=== PATIENT | female | born 1940 | race Caucasian/White ===

== ENCOUNTER 2016-09-30 15:44 | Observation (INO) ==
[2016-09-30] MEDS ORDERED: 0.9 % Sodium Chloride 1,000 ML IVC ONE (16:00)
--- NOTE | 2016-09-30 16:01 | Emergency Department Note ---
Disposition Clinical Impression: Hypoxia, HCAP (healthcare-associated pneumonia) Acute and chronic respiratory failure Qualifiers: Respiratory failure complication: hypoxia Qualified Code(s): J96.21 - Acute and chronic respiratory failure with hypoxia Disposition: Admitted As Inpatient Time of Disposition: 17:51 SOB HPI - General Chief Complaint: ED Shortness of Breath/Dyspnea Stated Complaint: OG, possible pneumonia Time Seen by Provider: 09/30/16 15:56 Source: patient, family Limitations: no limitations Nursing Notes Reviewed: Yes Vital Signs Reviewed: Yes - History of Present Illness 76-year-old female history of shortness of breath Johnnie Juares, chronic respiratory failure, requires oxygen as needed, and see apnea with CPAP at night, presents with shortness of breath cough and wheeze, has been worse for the last 2-3 days. Patient was recently discharged 2 weeks ago for acute on chronic respiratory or failure, was treated with antibiotic for pneumonia in the hospital. Pt Subjective Complaint: shortness of breath Onset (ago): day(s) (3) Severity: moderate Consistency/Duration: intermittent Improves with: oxygen Worsens with: lying flat, exertion, coughing Known history of: COPD, recurrent pneumonia Associated symptoms: Reports: fever, cough, wheezing, sputum production Treatment prior to arrival: oxygen (as needed) Cough present: Yes Cough Description: Voluntary, Hacking Cough Frequency: Intermittent Sputum production: Yes Sputum Amount: Scant Sputum Color: Yellow - Related Data Home oxygen amount: 2 liters Home Medications Medication Instructions Recorded Confirmed Aspirin 81 mg PO DAILY 02/07/16 09/12/16 Clopidogrel [Plavix] 75 mg PO DAILY 02/07/16 09/12/16 Metoprolol XL (24 HR) Succ [Toprol 100 mg PO DAILY 08/21/16 09/12/16 Xl] Previous Rx's Medication Instructions Recorded Albuterol Sulfate [Albuterol 0 puff IH Q4HR PRN #1 hfa.aer.ad 08/30/16 Inhaler] Ipratropium/Albuterol Neb [Duoneb] 3 ml IH Q4HR 30 Days 08/30/16 Budesonide/Formoterol 80/4.5 1 puff IH BIDR #1 inhaler 09/14/16 [Symbicort 80/4.5] Fluconazole [Diflucan] 150 mg PO PRN PRN #1 tab 09/14/16 Furosemide [Lasix] 20 mg PO DAILY PRN #0 09/14/16 Insulin Glargine,Hum.rec.anlog 25 unit SQ DAILY 30 Days 09/14/16 [Lantus Solostar] Insulin LISPRO [HumaLOG] 0 units SQ TIDAC 30 Days 09/14/16 Allergies Allergy/AdvReac Type Severity Reaction Status Date / Time acetaminophen Allergy Nausea Verified 08/27/16 10:19 [From Darvocet-N] codeine Allergy See Verified 08/27/16 10:19 Comments morphine Allergy Nausea Verified 08/27/16 10:19 propoxyphene Allergy Nausea Verified 08/27/16 10:19 [From Darvocet-N] Review of Systems: A 14 point ROS was obtained and was negative except as per below or as documented in the HPI. Constitutional: Denies: fever, chills, weakness, weight change Eyes: Denies: eye pain, eye discharge, vision change ENT: Denies: ear pain, throat pain, hearing loss, epistaxis, congestion, Cardiovascular: Denies: chest pain, palpitations, dyspnea on exertion, edema, syncope Respiratory: cough, dyspnea, wheezes Denies: , hemoptysis, stridor Gastrointestinal: Denies: abdominal pain, nausea, vomiting. diarrhea, constipation, hematemesis, hematochezia Genitourinary: Denies: urgency, dysuria, frequency, hematuria Musculoskeletal: Denies: back pain, neck pain, arthralgia, myalgia Integumentary: Denies: rash, abrasion, lesions Neurological: Denies: headache, weakness, numbness, paresthesias, confusion, abnormal gait Psychiatric: Denies: anxiety, depression, suicidal thoughts, homicidal thoughts , Endocrine: Denies: fatigue Hematological/Lymphatic: Denies: easy bleeding, easy bruising Allergic/Immunologic: Denies: facial swelling, urticaria All systems ED: reviewed and negative except as stated. Past Medical History - Past Medical History Attestation: Yes The following information was validated with the patient. Source: patient Medical history: Reports: coronary artery disease, hyperlipidemia, myocardial infarction Surgical history: Reports: appendectomy, cholecystectomy, coronary bypass (CABG) , hysterectomy, knee replacement, pacemaker/AICD, other Psychiatric history: Reports: anxiety, depression - Social History Smoking Status: Never smoker Smokeless Tobacco Status: No Alcohol use: Reports: none Drug use: Reports: none Physical Exam General: alert and oriented, short of breath and moderate respiratory distress Head: NCAT, no lesions Eyes: sclera anicteric, conjunctiva normal, PERRLA bilaterally, EOMI Bilaterally Ears: normal inspection, external ear wnl Nose: nasal septum nondeviated, sinuses nontender Throat: good dentition, mucous membranes moist Neck: no lymphadenopathy, trachea midline no deviation, no JVD Resp: Diffuse inspiratory and expiratory wheezes, diminished breath sounds the bases bilaterally. CV: RRR, normal S1 and S2, no m/g/r, Pulses +2 Rad, +2 DP/PT Abdomen: Soft, NTND, no hepatosplenomegaly, no hernias, Negative Rovsing's sign , Negative Orozco's sign Back: normal inspection, no tenderness to palpation, Negative CVA tenderness bilaterally Neuro: A&O3, CN II-XII grossly intact bilaterally, no motor or sensory deficits bilaterally, gait normal, GCS 15 [id number] Ext: normal inspection, symmetric Active and Passive ROM UE and LE bilaterally , no pedal edema bilaterally Psych: normal mood, normal affect Skin: No rashes, skin warm, dry, intact - General Limitations: no limitations General appearance: alert Course Course Narrative: 76-year-old female with probable pneumonia, multiple recent episodes of recurrent pneumonia and acute on chronic respiratory failure, we do nebs and Solu-Medrol, checking basic lab work with blood cultures and lactate, sputum culture, starting antibiotic spacer for pneumonia. - Reevaluation(s) Reevaluation #1: X-ray shows evidence of new left lower lobe infiltrate, we will treat with H Antibiotics make myosin Zosyn and Levaquin, ABG, patient just recently received her nebs so she is still tachypneic and wheezy. Admits hospitalist for HCAP And hypoxia Time: 17:50 Vital Signs Temperature 98.2 F 09/30/16 15:46 Pulse Rate 96 09/30/16 15:46 Respiratory Rate 24 09/30/16 15:46 Blood Pressure 114/76 09/30/16 15:46 O2 Sat by Pulse Oximetry 96 09/30/16 15:46 Temperature 98.2 F 09/30/16 15:46 Pulse Rate 91 09/30/16 17:51 Respiratory Rate 18 09/30/16 17:51 Blood Pressure 130/60 09/30/16 17:51 O2 Sat by Pulse Oximetry 99 09/30/16 17:51 Oxygen Delivery Oxygen Delivery Aerosol Mask Shortness of Breath/Dyspnea - [facility] Narrative Medical decision making narrative: 76yo female with left lower lobe pneumonia, treated for age Given recent hernias and hospitalizations, improved after DuoNeb treatment, ABG unremarkable , patient is not a BiPAP at the time of admission, admitted to hospitalist Dr Marino in stable condition. - Differential Diagnosis Likely: acute exacerbation of chronic obstructive airways disease, congestive heart failure, pneumonia, pulmonary embolism - Medical Records Medical records reviewed: Yes I reviewed the patient's medical records. - Lab Data Lab results reviewed: Yes I reviewed the patient's lab results. Result diagrams: 09/30/16 16:43 09/30/16 16:43 Lab Results 09/30/16 09/30/16 09/30/16 Range/Units 16:43 16:43 16:43 WBC 7.3 (4.3-11.1) K/mcL RBC 4.18 (3.82-4.97) M/mcL Hgb 12.3 (11.5-15.4) g/dL Hct 38.6 (35.3-44.9) % MCV 92.3 (83.0-100.0) fL MCH 29.4 (28.0-33.3) pg MCHC 31.9 (31.6-35.5) g/dL RDW 14.0 (11.5-14.5) % Plt Count 308 (140-400) K/mcL MPV 9.5 (9.4-12.4) fL Immature Gran % 1.2 (0-4) % Seg Neutrophils % 68.6 % Lymphocytes % 16.8 % Monocytes % 11.0 % Eosinophils % 1.9 % Basophils % 0.5 % Neutrophils # 5.0 (1.6-8.9) K/mcL Lymphocytes # 1.2 (0.6-4.6) K/mcL Monocytes # 0.8 (0.0-1.3) K/mcL Eosinophils # 0.1 (0.0-0.6) K/mcL Basophils # 0.0 (0.0-0.2) K/mcL Dohle Bodies Present A (Not Present) Platelet Estimate Normal (Normal) PT 12.2 H (9.4-12.1) Seconds INR 1.1 APTT 30.2 (26.0-36.0) Seconds Sodium 140 (136-145) mEq/L Potassium 4.2 (3.5-4.5) mEq/L Chloride 105 (98-109) mEq/L Carbon Dioxide 25 (19-29) mEq/L BUN 12 (7-20) mg/dL Creatinine 1.13 H (0.57-1.11) mg/dL Est GFR ( Amer) 57 L (> 60) Est GFR (Non-Af Amer) 47 L (> 60) BUN/Creatinine Ratio 11 (6-26) Glucose 147 H (70-99) mg/dL Calculated Osmolality 292 (280-300) Lactic Acid (0.5-2.2) mmol/L Calcium 9.8 (8.6-10.8) mg/dL Total Bilirubin 1.1 (0.2-1.2) mg/dL Direct Bilirubin 0.4 (0.0-0.5) mg/dL Indirect Bilirubin 0.7 (0.0-1.2) mg/dL AST 14 (5-34) Units/L ALT 20 (0-55) Units/L Alkaline Phosphatase 97 (38-126) Units/L Troponin I (0-0.03) ng/mL B-Natriuretic Peptide (0-100) pg/mL Serum Total Protein 6.8 (6.0-8.3) g/dL Albumin 3.2 L (3.5-5.0) g/dL Globulin 3.6 H (2.4-3.5) g/dL Albumin/Globulin Ratio 0.9 L (1.1-2.2) 09/30/16 09/30/16 09/30/16 Range/Units 16:43 16:43 16:43 WBC (4.3-11.1) K/mcL RBC (3.82-4.97) M/mcL Hgb (11.5-15.4) g/dL Hct (35.3-44.9) % MCV (83.0-100.0) fL MCH (28.0-33.3) pg MCHC (31.6-35.5) g/dL RDW (11.5-14.5) % Plt Count (140-400) K/mcL MPV (9.4-12.4) fL Immature Gran % (0-4) % Seg Neutrophils % % Lymphocytes % % Monocytes % % Eosinophils % % Basophils % % Neutrophils # (1.6-8.9) K/mcL Lymphocytes # (0.6-4.6) K/mcL Monocytes # (0.0-1.3) K/mcL Eosinophils # (0.0-0.6) K/mcL Basophils # (0.0-0.2) K/mcL Dohle Bodies (Not Present) Platelet Estimate (Normal) PT (9.4-12.1) Seconds INR APTT (26.0-36.0) Seconds Sodium (136-145) mEq/L Potassium (3.5-4.5) mEq/L Chloride (98-109) mEq/L Carbon Dioxide (19-29) mEq/L BUN (7-20) mg/dL Creatinine (0.57-1.11) mg/dL Est GFR ( Amer) (> 60) Est GFR (Non-Af Amer) (> 60) BUN/Creatinine Ratio (6-26) Glucose (70-99) mg/dL Calculated Osmolality (280-300) Lactic Acid 1.5 (0.5-2.2) mmol/L Calcium (8.6-10.8) mg/dL Total Bilirubin (0.2-1.2) mg/dL Direct Bilirubin (0.0-0.5) mg/dL Indirect Bilirubin (0.0-1.2) mg/dL AST (5-34) Units/L ALT (0-55) Units/L Alkaline Phosphatase (38-126) Units/L Troponin I 0.01 (0-0.03) ng/mL B-Natriuretic Peptide 125 H (0-100) pg/mL Serum Total Protein (6.0-8.3) g/dL Albumin (3.5-5.0) g/dL Globulin (2.4-3.5) g/dL Albumin/Globulin Ratio (1.1-2.2) - Radiology Data Radiology results reviewed: Yes I reviewed the patient's radiology results. Chest X-Ray 09/30/16 16:00 IMPRESSION: Interval increase and mild congestive changes. Asymmetric opacity at the left lung base may represent asymmetric pulmonary edema, atelectasis, or pneumonia. Recommend follow-up as clinically indicated. D/ / 09/30/2016 16:31:46 Melvin Joshua MD / Neris Carbajal Interpreting Provider: Melvin Joshua MD - EKG Data EKG attestation: Yes I reviewed and interpreted this EKG. EKG shows normal: Reports: sinus rhythm Rate: Reports: normal (Beats per minute NH 1 338 QRS 89 QTC 390) Rhythm: Reports: NSR [place]/QRS: Reports: normal When compared to previous EKG there are: no significant changes Interpretation: Reports: no acute changes, unchanged when compared to prior tracing (date) (09/12/2016) - Core Measures AMI Core Measures Followed: No Attestation Statement - Attestation Attestation: I examined this patient and my medical decision-making was reviewed with the [employer]/PA/Advanced Practice Nurse/Resident Physician. I agree with the documented findings, disposition and treatment plan as described except to the extent set forth below. Patient presents to the emergency department with a chief complaint of difficulty in breathing. Worsening over the past few days. Patient had several recent admissions. Coughing. Short of breath. Increasing oxygen demands a home. On exam she is uncomfortable but in no distress. Diffuse expiratory wheezing. Mildly tachypneic. Plan. Nebs and steroids. Chest x- ray shows an infiltrate. Broad spectrum antibiotics and admission.
[2016-09-30] MEDS ORDERED: Ipratropium/Albuterol Neb 3 ML IH ONE (16:16)
[2016-09-30] MEDS ORDERED: methylPREDNISolone 125 MG/2 ML VIAL IVP ONE (16:23)
[2016-09-30 16:53] LABS: Basophils % 0.5 %; Eosinophils # 0.1 K/mcL (0.0-0.6); Eosinophils % 1.9 %; Hematocrit 38.6 % (35.3-44.9); Hemoglobin 12.3 g/dL (11.5-15.4); Immature Granulocytes % 1.2 % (0-4); Lymphocytes # 1.2 K/mcL (0.6-4.6); Lymphocytes % 16.8 %; Mean Corpuscular HGB Conc 31.9 g/dL (31.6-35.5); Mean Corpuscular Hemoglobin 29.4 pg (28.0-33.3); Mean Corpuscular Volume 92.3 fL (83.0-100.0); Mean Platelet Volume 9.5 fL (9.4-12.4); Monocytes # 0.8 K/mcL (0.0-1.3); Platelet Count 308 K/mcL (140-400); Red Blood Count 4.18 M/mcL (3.82-4.97); Segmented Neutrophils % 68.6 %
[2016-09-30 17:01] LABS: INR 1.1; Prothrombin Time 12.2 Seconds (9.4-12.1)
[2016-09-30 17:04] LABS: Activated Partial Thrombo Time 30.2 Seconds (26.0-36.0)
[2016-09-30] MEDS ORDERED: Piperacillin/Tazobactam 3.375 GM in D5% in Water (Mini-Bag+) 100 ML IVPB ONE (17:08)
[2016-09-30] MEDS ORDERED: Levofloxacin 500 MG/100 ML 500 MG/100 ML BAG IVPB ONE (17:08)
[2016-09-30 17:09] LABS: Albumin 3.2 g/dL (3.5-5.0); Albumin/Globulin Ratio 0.9 (1.1-2.2); Bilirubin,Direct 0.4 mg/dL (0.0-0.5); Bilirubin,Indirect 0.7 mg/dL (0.0-1.2); Bilirubin,Total 1.1 mg/dL (0.2-1.2); Calcium 9.8 mg/dL (8.6-10.8); Globulin 3.6 g/dL (2.4-3.5); Potassium 4.2 mEq/L (3.5-4.5); Total Protein 6.8 g/dL (6.0-8.3)
[2016-09-30 17:15] LABS: Dohle Bodies Present (Not Present); Platelet Estimate Normal (Normal)
[2016-09-30] MEDS ORDERED: Vancomycin 1,500 MG in D5% in Water 250 ML IVPB ONE (18:00)
[2016-09-30] MEDS ORDERED: Furosemide 40 MG/4 ML VIAL IVP ONE (18:06)
[2016-09-30 18:27] LABS: ABG Base Excess -0.5 mEq/L (-2.0 to 3.0); ABG HCO3 24.2 mEQ/L (21-27); ABG Oxygen Saturation 97 % (95-98); ABG PCO2 39 mmHg (35-45); ABG PO2 95 mmHg (85-104); ABG TCO2 25.4 mEq/L (20-26); Blood Gas FiO2 44 %
[2016-09-30] MEDS ORDERED: Acetaminophen 325 MG TABLET PO PRN (18:54)
[2016-09-30] MEDS ORDERED: Naloxone 0.4 MG/ML INJ IVP PRN (18:54)
[2016-09-30] MEDS ORDERED: Ondansetron ODT 4 MG TAB.RAPDIS SL PRN (18:54)
[2016-09-30] MEDS ORDERED: Albuterol 2.5 MG/3 ML NEBULIZER IH PRN (19:03)
--- NOTE | 2016-09-30 19:58 | Internal Med History&Physical ---
Date of Encounter: 09/30/16 Time of Encounter: 19:50 Assessment and Plan (1) Acute and chronic respiratory failure Current visit: Yes Status: Acute History of restrictive lung disease. History of chronic bronchitis. Shortness of breath and cough, respiratory distress and tachypnea, satting 95% on 4 L nasal cannula with increased work of breathing. DuoNeb treatments 4 times a day sheduled Albuterol nebulizer every 2 hours when necessary BiPAP and oxygen per nasal cannula titrate to maintain oxygen saturation greater than 92% Qualifiers: Respiratory failure complication: hypoxia Qualified Code(s): J96.21 - Acute and chronic respiratory failure with hypoxia (2) HCAP (healthcare-associated pneumonia) Current visit: Yes Status: Acute Patient with productive cough, shortness of breath. Recent hospitalization with discharge 09/14. CXR showed mild congestive changes, asymmetric opacity at the left lung base. afebrile and no leukocytosis. Lungs with diffuse wheezing. Suspected healthcare associated pneumonia. Received Levaquin, Vanc and zosyn in ED. Will continue Levaquin 500mg IVPB daily (3) Acute on chronic diastolic heart failure Current visit: Yes Status: Acute Shortness of breath, BNP elevated to 125, echo on 07/23/16 showed moderate left ventricular diastolic dysfunction as well as pulmonary hypertension with an RVSP of 55 and a preserved ejection fraction of 65%. X-ray showed increase in mild congestive changes. Lasix 40 mg IV push twice a day. Recheck chest x-ray tomorrow BiPAP and oxygen per nasal cannula, titrate to maintain oxygen saturation above 92% Intake/output daily weights (4) Acute chronic obstructive pulmonary disease with respiratory distress Current visit: Yes Status: Acute History of chronic bronchitis, and restrictive lung disease. Productive cough and shortness of breath. 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 Florez is a 76 year old female with a history of restrictive lung disease, hypertension, coronary artery disease, type 2 diabetes presented to the emergency department today with complaints of productive cough and shortness of breath. She reports her cough and shortness of breath has have been worsening over the past 2-3 days. The cough is productive of green sputum. She reports she does have chest tightness with her cough and a sore throat. She wears oxygen at home and his CPAP overnight. She also reports some mild nausea, chills and poor appetite. She denies any fever, body aches, vomiting, diarrhea. Her evaluation in the ED was significant for a BNP elevated to 125, chest x-ray which showed mild congestive changes, asymmetric opacity at the left lung base. Troponin was negative at 0.01, lactic acid was normal at 1.5, ABG was normal. She was initiated on broad-spectrum antibiotics by the ED, with vancomycin, Zosyn, and Levaquin. She was given DuoNeb treatment and 125 mg of IV Solu-Medrol. On exam she appears tachypnic, and is using accessory muscles to breathe. She is satting 95% on 4 L nasal cannula. Her lungs have diffuse wheezes. Heart is mildly tachycardic with regular rhythm. Past Med Surg Social Fam HX - Past Medical History Medical history: CHF (diastolic), COPD (chronic bronghitis, restrictive lung disease.), coronary artery disease, diabetes, hyperlipidemia, myocardial infarction, renal disease, valvular heart disease Psychiatric history: anxiety, depression - Past Surgical History Surgical History: appendectomy, cholecystectomy, coronary bypass (CABG), heart valve replacement (mitral valve - porcine), hysterectomy, knee replacement, other, pacemaker - Social History Smoking Status: Never smoker Smokeless Tobacco Status: No Alcohol use: none Drug use: none - Family History Mother Living Status: Hx Family Cardiac Disorders: Yes Hx Family Respiratory Disorders: Yes (COPD) Hx Family Cancer: Yes (Colon.) Hx Family GI Disorders: No Hx Family Endocrine Disorder: No Hx Family Neuromuscular Disorders: No Hx Family Neurologic Disorders: No Hx Family HEENT Disorders: No Hx Family Autoimmune Disorders: No Father Living Status: Age at : 68 Cause of : [place] Internal Medicine - H&P: Meds Aspirin 81 mg PO DAILY 02/07/16 [History] Clopidogrel [Plavix] 75 mg PO DAILY 02/07/16 [History] Metoprolol XL (24 HR) Succ [Toprol Xl] 100 mg PO DAILY 08/21/16 [History] Albuterol Sulfate [Albuterol Inhaler] 0 puff IH Q4HR PRN #1 hfa.aer.ad 08/30/16 [Rx] Ipratropium/Albuterol Neb [Duoneb] 3 ml IH Q4HR 30 Days 08/30/16 [Rx] Budesonide/Formoterol 80/4.5 [Symbicort 80/4.5] 1 puff IH BIDR #1 inhaler 09/14 [Rx] Fluconazole [Diflucan] 150 mg PO PRN PRN #1 tab 09/14/16 [Rx] Furosemide [Lasix] 20 mg PO DAILY PRN #0 09/14/16 [Rx] Insulin Glargine,Hum.rec.anlog [Lantus Solostar] 25 unit SQ DAILY 30 Days [Rx] Insulin LISPRO [HumaLOG] 0 units SQ TIDAC 30 Days 09/14/16 [Rx] Allergies acetaminophen [From Darvocet-N] Allergy (Verified 08/27/16 10:19) Nausea codeine Allergy (Verified 08/27/16 10:19) See Comments "GOES INTO COMA" morphine Allergy (Verified 08/27/16 10:19) Nausea propoxyphene [From Darvocet-N] Allergy (Verified 08/27/16 10:19) Nausea All Systems PM: A 10-system review of systems was performed and is negative for pertinent findings except as documented above in the HPI. - Constitutional Constitutional: anorexia, chills, fatigue, no fever(s), no night sweats - EENT Eyes: no change in vision, no discharge, no pain, no photophobia Nose, mouth and throat: no dysphagia, no nasal discharge, no neck pain, no sore throat - Cardiovascular Cardiovascular ROS IM: no chest pain, no diaphoresis, no dyspnea, no lightheadedness, no palpitations, no syncope - Respiratory Respiratory: cough, dyspnea, dyspnea on exertion, wheezing, pain with cough - Gastrointestinal Gastrointestinal: no abdominal pain, no diarrhea, no hematemesis, no hematochezia, no melena, no nausea, no vomiting - Genitourinary Genitourinary: no change in urinary stream, no dysuria, no flank pain, no hematuria - Musculoskeletal Musculoskeletal ROS IM: no numbness, no tingling - Integumentary Integumentary IM: no rash, no unusual bruising - Neurological Neurological ROS: no confusion, no convulsions, no focal weakness, no numbness, no tingling, no tremor(s) - Hematologic/Lymphatic Hematologic/Lymphatic: no easy bruising - Constitutional Vitals: Temp Pulse Resp BP Pulse Ox 98.2 F 91 18 130/60 99 09/30/16 15:46 09/30/16 17:51 09/30/16 17:51 09/30/16 17:51 09/30/16 17:51 General appearance: Present: mild distress, A&O X 3 - Head Head exam: Present: atraumatic, normocephalic - Eye Eye exam: Present: PERRL, conjuntiva pink, sclera anicteric Pupils: Present: PERRL - Neck Neck exam general surgery: Present: supple, trachea midline. Absent: lymphadenopathy - Respiratory Respiratory exam: Present: prolonged expiratory phase, respiratory distress, wheezes, tachypnea - Cardiovascular Cardiovascular exam: Present: RRR, +S1, +S2. Absent: diastolic murmur, gallop, rubs, systolic murmur - GI/Abdominal GI/Abdominal exam: Present: normal bowel sounds, soft, no peritoneal signs. Absent: distended, tenderness - Extremities Exam Extremities exam: Present: warm, radial pulses palpable and symetrical. Absent : calf tenderness, cyanotic, pedal edema - Neurological Exam Neurological exam: Present: CN II-XII intact, oriented X3, no focal deficits. Absent: facial droop, speech deficit - Skin Skin exam: Present: dry, intact Internal Med - H&P Results - Labs CBC & Chem 7: 09/30/16 16:43 09/30/16 16:43 - ABG Interpretation ABG results: 09/30/16 18:20 ABG pH 7.40 ABG pCO2 39 ABG pO2 95 ABG HCO3 24.2 ABG Total CO2 25.4 ABG O2 Saturation 97 ABG Base Excess -0.5
[2016-09-30] MEDS ORDERED: D5% in Water 1,000 ML IV PRN (20:11)
[2016-09-30] MEDS ORDERED: *HR* Dextrose 50 % in Water (Syg) 50 ML SYRINGE IVP PRN (20:16)
[2016-09-30] MEDS ORDERED: Dextrose Gel 15 GM PO PRN ×2 (20:16)
--- NOTE | 2016-09-30 20:27 | Event Note ---
Date of Encounter: 09/30/16 Time of Encounter: 20:23 I examined this patient and my medical decision-making was reviewed with Marycruz Cannon. I agree with the documented findings, disposition and treatment plan as described except to the extent set forth below. 76-year-old female with a history of restrictive lung disease on home oxygen, chronic diastolic CHF presented to the emergency room due to a few days history of shortness of breath, cough. Patient denies any fevers. Reports wheezing. Denies orthopnea or paroxysmal nocturnal dyspnea. In the emergency room, patient received 1 L fluid bolus. Later, she received 40 mg intravenous Lasix. Exam admission reveals patient in moderate respiratory distress using accessory muscles of respiration. Bilateral diffuse wheezing present. First and second heart sounds present. Chest x-ray personally reviewed-coronary vascular congestion present. Questionable infiltrate right lower lobe when compared with a prior x-ray. Pacemaker on the right side. Telemetry reviewed-paced rhythm. Echocardiogram from June 2016 reveals ejection fraction of 65% with moderate diastolic dysfunction. Bio-prosthetic valve present. 1. Acute on chronic hypoxic respiratory failure-admit inpatient status. Expect the patient to stay in the hospital at least 2 midnights. Expected discharge disposition is to home. High-risk due to risk of lethal arrhythmias and worsening respiratory failure which may require intubation and mechanical ventilation. Patient is full code. BiPAP support. Monitor on telemetry and continuous pulse oximetry. Antibiotics. Steroids. 2. Acute on chronic diastolic CHF-intravenous Lasix. Strict input and output. Kendall catheter. Daily weights. Fluid restricted diet. 3. Coronary artery disease-aspirin, Plavix and beta pankaj. Statin. EKG without ischemic changes. Troponin stable. 4. Diabetes mellitus type 2 on insulin without complications-home dose of insulin and sliding scale insulin. 5. Chronic kidney disease stage III 6. Obesity 7. Obstructive sleep apnea on home CPAP at 11 cm. DOMINIC Paniagua
[2016-09-30] MEDS: Insulin LISPRO 300 UNITS/3 ML VIAL SQ SCH (20:53)
[2016-09-30] MEDS: Ipratropium/Albuterol Neb 3 ML IH SCH ×2 (21:00→22:00)
[2016-09-30] MEDS: Budesonide/Formoterol 160/4.5 MDI IH SCH (21:24)
[2016-09-30] MEDS: Furosemide 40 MG/4 ML VIAL IVP SCH ×2 (21:32→22:40)
[2016-09-30] MEDS ORDERED: *HR* LORazepam 2 MG/ML VIAL IVP ONE (21:41)
[2016-09-30] MEDS ORDERED: Water for inj. (sterile) 10 ML IV ONE (22:36)
[2016-10-01] MEDS: Ipratropium/Albuterol Neb 3 ML IH SCH ×4 (03:35→22:08)
[2016-10-01 05:34] LABS: Hematocrit 36.7 % (35.3-44.9); Mean Corpuscular HGB Conc 32.7 g/dL (31.6-35.5); Mean Corpuscular Hemoglobin 30.2 pg (28.0-33.3); Mean Corpuscular Volume 92.2 fL (83.0-100.0); Platelet Count 282 K/mcL (140-400); Red Blood Count 3.98 M/mcL (3.82-4.97); Red Cell Distribution Width 13.9 % (11.5-14.5)
[2016-10-01 05:35] LABS: Basophils % 0.3 %; Immature Granulocytes % 1.5 % (0-4); Lymphocytes # 0.5 K/mcL (0.6-4.6); Lymphocytes % 7.4 %; Mean Platelet Volume 10.3 fL (9.4-12.4); Monocytes # 0.2 K/mcL (0.0-1.3); Monocytes % 2.5 %; Segmented Neutrophils % 88.3 %
[2016-10-01 05:55] LABS: Calcium 8.9 mg/dL (8.6-10.8); Potassium 4.1 mEq/L (3.5-4.5)
[2016-10-01] MEDS ORDERED: MethylPREDNISolone 40 MG/ML VIAL IVP SCH (06:00)
[2016-10-01] MEDS: *HR* Heparin 5,000 UNIT/ML VIAL SQ SCH ×2 (06:06→17:56)
[2016-10-01] MEDS: Furosemide 40 MG/4 ML VIAL IVP SCH ×2 (08:05→20:10)
[2016-10-01] MEDS: Metoprolol XL (24 HR) Succ 50 MG TAB.ER.24H PO SCH (08:05)
[2016-10-01] MEDS: predniSONE 20 MG TABLET PO SCH (08:06)
[2016-10-01] MEDS: Aspirin 81 MG TAB.CHEW PO SCH (08:06)
[2016-10-01] MEDS: Insulin LISPRO 300 UNITS/3 ML VIAL SQ SCH ×4 (08:06→20:10)
[2016-10-01] MEDS: Budesonide/Formoterol 160/4.5 MDI IH SCH ×2 (10:46→22:08)
--- NOTE | 2016-10-01 14:43 | Electrocardiograph Report ---
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
--- NOTE | 2016-10-01 17:52 | Internal Med Progress Note ---
Date of Encounter: 10/01/16 Time of Encounter: 12:35 - Assessment and plan (1) Acute and chronic respiratory failure Current Visit: Yes Status: Acute Assessment and plan: Improved with BiPAP Qualifiers: Respiratory failure complication: hypoxia Qualified Code(s): J96.21 - Acute and chronic respiratory failure with hypoxia (2) Acute chronic obstructive pulmonary disease with respiratory distress Current Visit: Yes Status: Acute Assessment and plan: Improved Continue O2 BiPAP standby and hs for BAILEY (3) Acute on chronic diastolic heart failure Current Visit: Yes Status: Acute Assessment and plan: Continue diuresis, daily weight checks, input/output, fluid restriction diet (4) HCAP (healthcare-associated pneumonia) Current Visit: Yes Status: Acute Assessment and plan: Continue antibiotics (5) CKD (chronic kidney disease) stage 3, GFR 30-59 ml/min Current Visit: Yes Status: Chronic Assessment and plan: Stable Cr (6) Type 2 diabetes mellitus Current Visit: Yes Status: Chronic Qualifiers: Diabetes mellitus complication status: without complication Diabetes mellitus medical terminologist insulin use: with chcf use Qualified Code(s): E11.9 - Type 2 diabetes mellitus without complications; Z79.4 - manager long term care (current) use of insulin (7) CAD (coronary artery disease) Current Visit: Yes Status: Chronic Assessment and plan: Stable, resume home meds Qualifiers: Coronary Disease-Associated Artery/Lesion type: bypass graft [place] vs. transplanted heart: [place] heart Associated angina: without angina Qualified Code(s): I25.810 - Atherosclerosis of coronary artery bypass graft(s) without angina pectoris (8) HTN (hypertension) Current Visit: Yes Status: Chronic Qualifiers: Hypertension type: essential hypertension Qualified Code(s): I10 - Essential (primary) hypertension - Subjective Interval history: 76 Y/O F being managed for CAP, CHFE Has PMH of CHF, CKD, HTN, HLD, restrictive lung disease, chronic hypoxic respiratory failure She was placed on BiPAP and received Lasix on admission She is seen this morning, with some improvement - Constitutional Vitals: Temp Pulse Resp BP Pulse Ox 97.8 F 80 16 111/63 97 10/01/16 15:24 10/01/16 15:24 10/01/16 16:04 10/01/16 15:24 10/01/16 16:04 General appearance: Present: A&O X 3, no acute distress, obese - Head Head exam: Present: atraumatic, normocephalic - Eye Eye exam: Present: PERRL, conjuntiva pink, sclera anicteric Pupils: Present: PERRL - Neck Neck exam general surgery: Present: normal inspection - Respiratory Respiratory exam: Present: wheezes. Absent: rales, rhonchi - Cardiovascular Cardiovascular exam: Present: RRR, +S1, +S2 - GI/Abdominal GI/Abdominal exam: Present: normal bowel sounds, soft, no peritoneal signs. Absent: distended, tenderness - Extremities Exam Extremities exam: Present: warm, radial pulses palpable and symetrical. Absent : calf tenderness, cyanotic, pedal edema - Neurological Exam Neurological exam: Present: CN II-XII intact, oriented X3, no focal deficits. Absent: pronater drift, facial droop, speech deficit - Skin Skin exam: Present: dry Internal Medicine: Result - Labs CBC & Chem 7: 10/01/16 04:23 10/01/16 04:23 Labs: Short CBC 10/01/16 Range/Units 04:23 WBC 6.8 (4.3-11.1) K/mcL Hgb 12.0 (11.5-15.4) g/dL Hct 36.7 (35.3-44.9) % Plt Count 282 (140-400) K/mcL Neutrophils # 6.0 (1.6-8.9) K/mcL BMP 10/01/16 04:23 Sodium 139 Potassium 4.1 Chloride 105 Carbon Dioxide 20 BUN 16 Creatinine 1.48 H Glucose 384 H Calcium 8.9 - ABG Interpretation ABG results: ABG ABG pH 7.40 pH Units (7.32-7.45) 09/30/16 18:20 ABG pCO2 39 mmHg (35-45) 09/30/16 18:20 ABG pO2 95 mmHg (85-104) 09/30/16 18:20 ABG O2 Saturation 97 % (95-98) 09/30/16 18:20 PT/INR, D-dimer PT 12.2 Seconds (9.4-12.1) H 09/30/16 16:43 - Impressions Impressions Chest X-Ray 10/01/16 08:00 IMPRESSION: Left basilar opacity is unchanged and could represent atelectasis or pneumonia. D/ / Darius Majano MD / Darius Majano MD Interpreting Provider: Darius Majano MD Consult Discharge Plan - Plan Referrals: Edgar Nguyen Jr, MD [Primary Care Provider] -
[2016-10-01] MEDS: Levofloxacin 750 MG/150 ML 750 MG/150 ML BAG IVPB SCH (17:56)
[2016-10-01] MEDS ORDERED: *HR* LORazepam 2 MG/ML VIAL IVP ONE (22:53)
[2016-10-02] MEDS ORDERED: *HR* LORazepam 2 MG/ML VIAL IVP ONE ×2 (01:07→21:03)
[2016-10-02] MEDS ORDERED: *HR* LORazepam 2 MG/ML VIAL ONE (01:26)
[2016-10-02] MEDS: Ipratropium/Albuterol Neb 3 ML IH SCH ×4 (04:02→22:33)
[2016-10-02 05:05] LABS: Basophils # 0.1 K/mcL (0.0-0.2); Basophils % 0.5 %; Eosinophils % 0.1 %; Hematocrit 35.3 % (35.3-44.9); Hemoglobin 11.4 g/dL (11.5-15.4); Immature Granulocytes % 3.4 % (0-4); Lymphocytes # 1.4 K/mcL (0.6-4.6); Lymphocytes % 9.5 %; Mean Corpuscular HGB Conc 32.3 g/dL (31.6-35.5); Mean Corpuscular Hemoglobin 29.8 pg (28.0-33.3); Mean Corpuscular Volume 92.2 fL (83.0-100.0); Mean Platelet Volume 10.4 fL (9.4-12.4); Monocytes # 1.1 K/mcL (0.0-1.3); Monocytes % 7.3 %; Platelet Count 297 K/mcL (140-400); Red Blood Count 3.83 M/mcL (3.82-4.97); Segmented Neutrophils % 79.2 %
[2016-10-02 05:07] LABS: Neutrophils # 11.6 K/mcL (1.6-8.9)
[2016-10-02] MEDS: Cefepime HCl 1,000 MG in D5% in Water (Mini-Bag+) 100 ML IVPB SCH ×2 (05:09→17:01)
[2016-10-02] MEDS: *HR* Heparin 5,000 UNIT/ML VIAL SQ SCH ×2 (05:10→17:02)
[2016-10-02 05:13] LABS: Calcium 9.6 mg/dL (8.6-10.8)
[2016-10-02] MEDS: Metoprolol XL (24 HR) Succ 50 MG TAB.ER.24H PO SCH (08:43)
[2016-10-02] MEDS: Insulin LISPRO 300 UNITS/3 ML VIAL SQ SCH ×4 (08:44→20:47)
[2016-10-02] MEDS: predniSONE 20 MG TABLET PO SCH (08:44)
[2016-10-02] MEDS: Furosemide 40 MG/4 ML VIAL IVP SCH ×2 (08:44→21:42)
[2016-10-02] MEDS: Aspirin 81 MG TAB.CHEW PO SCH (08:44)
[2016-10-02] MEDS: Budesonide/Formoterol 160/4.5 MDI IH SCH ×2 (10:14→22:33)
--- NOTE | 2016-10-02 14:27 | Internal Med Progress Note ---
Date of Encounter: 10/02/16 Time of Encounter: 10:30 - Assessment and plan (1) HCAP (healthcare-associated pneumonia) Current Visit: Yes Status: Acute Assessment and plan: Patient stating her shortness of breath has improved since admission but she states she is not back to her baseline. Continue cefepime and levoflox. On examination, pt with fair to good aeration and no signs of increased respiratory effort. Will d/c massey and ambulate TID- encourage ambulation. Of note, patient continually endorsing her concern and fear that she will be discharged to orally. In review of her chart, this is her third admission in the last month and a half. Suspect she will be ready to discharge tomorrow pending clinical outcomes. ITS Impressions Chest X-Ray 09/30/16 16:00 IMPRESSION: Interval increase and mild congestive changes. Asymmetric opacity at the left lung base may represent asymmetric pulmonary edema, atelectasis, or pneumonia. Recommend follow-up as clinically indicated. D/ / 09/30/2016 16:31:46 Melvin Joshua MD / Neris Carbajal Interpreting Provider: Melvin Joshua MD Chest X-Ray 10/01/16 08:00 IMPRESSION: Left basilar opacity is unchanged and could represent atelectasis or pneumonia. D/ / Darius Majano MD / Darius Majano MD Interpreting Provider: Darius Majano MD (2) Acute chronic obstructive pulmonary disease with respiratory distress Current Visit: Yes Status: Acute Assessment and plan: Improved; continue supplemental oxygenation and pulmonary toilet. Fair to good aeration noted throughout. Continue BiPAP as needed, will transition back to CPAP upon discharge. (3) Acute and chronic respiratory failure Current Visit: Yes Status: Acute Assessment and plan: At home, patient used to be on 2 L per nasal cannula continuously however the past several weeks, she is needed 3 L. She also utilizes CPAP at home. Here, she is on 4-5 L per nasal cannula and is utilizing BiPAP. She states that the CPAP helps her more than the BiPAP. Continue pulmonary toilet. Plan is to try to wean her back to her baseline of 2-3 L per nasal cannula continuously. Qualifiers: Respiratory failure complication: hypoxia Qualified Code(s): J96.21 - Acute and chronic respiratory failure with hypoxia (4) Acute on chronic diastolic heart failure Current Visit: Yes Status: Acute Assessment and plan: Continue diuresis- we will de-escalate dosage given slowly worsening renal functioning. Continue daily weight checks, input/output, fluid restriction diet (5) CAD (coronary artery disease) Current Visit: Yes Status: Chronic Assessment and plan: Stable, resume home meds. Patient denies chest pain. Qualifiers: Coronary Disease-Associated Artery/Lesion type: bypass graft [place] vs. transplanted heart: [place] heart Associated angina: without angina Qualified Code(s): I25.810 - Atherosclerosis of coronary artery bypass graft(s) without angina pectoris (6) CKD (chronic kidney disease) stage 3, GFR 30-59 ml/min Current Visit: Yes Status: Chronic Assessment and plan: Stable Cr however slowly trending up since admission- we will de-escalate IV Lasix (7) HTN (hypertension) Current Visit: Yes Status: Chronic Assessment and plan: Controlled. We will continue to trend and adjust medications as indicated. Qualifiers: Hypertension type: essential hypertension Qualified Code(s): I10 - Essential (primary) hypertension (8) Type 2 diabetes mellitus Current Visit: Yes Status: Chronic Assessment and plan: Uncontrolled with recent A1c of 9.9%. Continue sliding scale while admitted. 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 On examination, patient sitting upright in bed watching television. Patient stating she is feeling better though continues to endorse shortness of breath above her norm. Patient stating she is extremely nervous stating that she does not want to be discharged to early stating that the last 2 times she has been admitted, she feels as if she has been sent home to early. She states she is eating well. - Constitutional Vitals: Temp Pulse Resp BP Pulse Ox 98.0 F 88 18 118/70 96 10/02/16 11:42 10/02/16 11:42 10/02/16 11:42 10/02/16 11:42 10/02/16 11:42 General appearance: Present: A&O X 3, pleasant, no acute distress, obese, answers questions appropriately - Head Head exam: Present: atraumatic, normocephalic - Eye Eye exam: Present: PERRL, conjuntiva pink, sclera anicteric Pupils: Present: PERRL - Neck Neck exam general surgery: Present: supple, trachea midline. Absent: lymphadenopathy - Respiratory Respiratory exam: Present: CTAB (fair to good aeration; no adventitious breath sounds detected). Absent: accessory muscle use, rales, respiratory distress, rhonchi, wheezes - Cardiovascular Cardiovascular exam: Present: RRR, +S1, +S2. Absent: diastolic murmur, gallop, rubs, systolic murmur - GI/Abdominal GI/Abdominal exam: Present: normal bowel sounds, soft, no peritoneal signs. Absent: distended, tenderness - Extremities Exam Extremities exam: Present: warm, radial pulses palpable and symetrical. Absent : calf tenderness, cyanotic, pedal edema - Neurological Exam Neurological exam: Present: alert, CN II-XII intact, normal gait, oriented X3, no focal deficits, strengths equal and symetr throughout. Absent: pronater drift, facial droop, speech deficit - Skin Skin exam: Present: dry, intact, pallor, warm Internal Medicine: Result - Labs CBC & Chem 7: 10/02/16 04:30 10/02/16 04:30 Labs: Short CBC 10/02/16 Range/Units 04:30 WBC 14.6 H D (4.3-11.1) K/mcL Hgb 11.4 L (11.5-15.4) g/dL Hct 35.3 (35.3-44.9) % Plt Count 297 (140-400) K/mcL Neutrophils # 11.6 H (1.6-8.9) K/mcL BMP 10/02/16 04:30 Sodium 143 Potassium 5.0 H Chloride 106 Carbon Dioxide 25 BUN 32 H D Creatinine 1.63 H Glucose 178 H Calcium 9.6 - ABG Interpretation ABG results: ABG ABG pH 7.40 pH Units (7.32-7.45) 09/30/16 18:20 ABG pCO2 39 mmHg (35-45) 09/30/16 18:20 ABG pO2 95 mmHg (85-104) 09/30/16 18:20 ABG O2 Saturation 97 % (95-98) 09/30/16 18:20 PT/INR, D-dimer PT 12.2 Seconds (9.4-12.1) H 09/30/16 16:43 Consult Discharge Plan - Plan Referrals: Alison Choudhury CNP [Advanced Practice Nurse] - 10/08/16 1:30 pm
[2016-10-02 20:47] LABS: Bilirubin,Urine Negative (Negative); Blood,Urine Trace (Negative); Clarity,Urine Clear (Clear); Color,Urine Yellow (Yellow); Glucose,Urine (UA) 500 mg/dL (Normal); Ketones,Urine Negative (Negative); Leukocyte Esterase,Urine Negative (Negative); Nitrite,Urine Negative (Negative); Protein,Urine Negative (Neg-Trace); Specific Gravity,Urine 1.019 (1.010-1.025); Urobilinogen,Urine Normal (Normal)
[2016-10-03] MEDS: Ipratropium/Albuterol Neb 3 ML IH SCH ×3 (03:50→16:03)
[2016-10-03 04:59] LABS: Basophils # 0.1 K/mcL (0.0-0.2); Basophils % 0.5 %; Eosinophils % 0.1 %; Hematocrit 35.8 % (35.3-44.9); Hemoglobin 11.5 g/dL (11.5-15.4); Immature Granulocytes % 4.8 % (0-4); Lymphocytes # 1.1 K/mcL (0.6-4.6); Lymphocytes % 9.9 %; Mean Corpuscular HGB Conc 32.1 g/dL (31.6-35.5); Mean Corpuscular Hemoglobin 30.3 pg (28.0-33.3); Mean Corpuscular Volume 94.5 fL (83.0-100.0); Mean Platelet Volume 9.8 fL (9.4-12.4); Monocytes # 0.6 K/mcL (0.0-1.3); Monocytes % 5.7 %; Neutrophils # 8.9 K/mcL (1.6-8.9); Platelet Count 316 K/mcL (140-400); Red Blood Count 3.79 M/mcL (3.82-4.97)
[2016-10-03 05:08] LABS: Calcium 9.4 mg/dL (8.6-10.8); Potassium 4.4 mEq/L (3.5-4.5)
[2016-10-03] MEDS: Cefepime HCl 1,000 MG in D5% in Water (Mini-Bag+) 100 ML IVPB SCH ×2 (06:18→17:24)
[2016-10-03] MEDS: *HR* Heparin 5,000 UNIT/ML VIAL SQ SCH ×2 (06:19→16:35)
[2016-10-03] MEDS: Insulin LISPRO 300 UNITS/3 ML VIAL SQ SCH ×4 (09:03→21:47)
[2016-10-03] MEDS: Metoprolol XL (24 HR) Succ 50 MG TAB.ER.24H PO SCH (09:04)
[2016-10-03] MEDS: Furosemide 40 MG/4 ML VIAL IVP SCH ×2 (09:04→21:47)
[2016-10-03] MEDS: predniSONE 20 MG TABLET PO SCH (09:04)
[2016-10-03] MEDS: Aspirin 81 MG TAB.CHEW PO SCH (09:04)
[2016-10-03] MEDS: Budesonide/Formoterol 160/4.5 MDI IH SCH (11:02)
--- NOTE | 2016-10-03 12:08 | Internal Med Progress Note ---
Date of Encounter: 10/03/16 Time of Encounter: 10:30 - Assessment and plan (1) HCAP (healthcare-associated pneumonia) Current Visit: Yes Status: Acute Assessment and plan: Patient stating her shortness of breath has improved since admission but she states she is not back to her baseline. Continue cefepime and levoflox. Yesterday, her lungs were clear with fair to good aeration. Today, I have noted coarse wheezing to her posterior lung field- will order chest CT at this time to assess status of pneumonia and possible fluid overload although she appears euvolemic on examination. Ambulate TID- encourage ambulation. Of note , patient continually endorsing her concern and fear that she will be discharged too early. In review of her chart, this is her third admission in the last month and a half. Will repeat chest CT given new adventitious breath sounds noted on examination today. Will also bring OT and PT onboard as she is endorsing generalized weakness. Continued vigilance and monitoring of her clinical status critical to prevent likely readmission in the near future should she go home today. Not going to be discharged today. ITS Impressions Chest X-Ray 09/30/16 16:00 IMPRESSION: Interval increase and mild congestive changes. Asymmetric opacity at the left lung base may represent asymmetric pulmonary edema, atelectasis, or pneumonia. Recommend follow-up as clinically indicated. D/ / 09/30/2016 16:31:46 Melvin Joshua MD / Neris Carbajal Interpreting Provider: Melvin Joshua MD Chest X-Ray 10/01/16 08:00 IMPRESSION: Left basilar opacity is unchanged and could represent atelectasis or pneumonia. D/ / Darius Majano MD / Darius Majano MD Interpreting Provider: Darius Majano MD (2) Acute chronic obstructive pulmonary disease with respiratory distress Current Visit: Yes Status: Acute Assessment and plan: Dyspnea has improved although she is not back to her baseline; continue supplemental oxygenation and pulmonary toilet. Fair to good aeration noted throughout with coarse breath sounds present. Continue BiPAP as needed, will transition back to CPAP upon discharge. (3) Acute and chronic respiratory failure Current Visit: Yes Status: Acute Assessment and plan: At home, patient used to be on 2 L per nasal cannula continuously however the past several weeks, she has needed 3 L. She also utilizes CPAP at home. Yesterday, she was on 4-5 L per nasal cannula, and today she is back on 2-3 L consistent with her baseline. She states that the CPAP helps her more than the BiPAP. Continue pulmonary toilet. Qualifiers: Respiratory failure complication: hypoxia Qualified Code(s): J96.21 - Acute and chronic respiratory failure with hypoxia (4) Acute on chronic diastolic heart failure Current Visit: Yes Status: Acute Assessment and plan: Continue diuresis- Lasix deescalated yesterday given slight decline in her renal functioning. She appears euvolemic on examination however coarse crackles noted on examination to her posterior lung jarquin that was not present yesterday. Chest CT pending. Continue daily weight checks, input/output, fluid restriction diet (5) CAD (coronary artery disease) Current Visit: Yes Status: Chronic Assessment and plan: Stable, resume home meds. Patient denies chest pain. Qualifiers: Coronary Disease-Associated Artery/Lesion type: bypass graft [place] vs. transplanted heart: [place] heart Associated angina: without angina Qualified Code(s): I25.810 - Atherosclerosis of coronary artery bypass graft(s) without angina pectoris (6) CKD (chronic kidney disease) stage 3, GFR 30-59 ml/min Current Visit: Yes Status: Chronic Assessment and plan: She has remained stable and consistent with her baseline throughout this admission however on days 2 and 3 of her current four-day admission, renal functioning trended down to the low end of her normal. Lasix was de-escalate it and her renal functioning has improved to her baseline today. (7) HTN (hypertension) Current Visit: Yes Status: Chronic Assessment and plan: Controlled. We will continue to trend and adjust medications as indicated. Qualifiers: Hypertension type: essential hypertension Qualified Code(s): I10 - Essential (primary) hypertension (8) Type 2 diabetes mellitus Current Visit: Yes Status: Chronic Assessment and plan: Uncontrolled with recent A1c of 9.9%. Continue sliding scale while admitted. 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 Qualifiers: Leukocytosis type: unspecified Qualified Code(s): D72.829 - Elevated white blood cell count, unspecified (12) Hyperkalemia Current Visit: Yes Status: Resolved (13) Depression Current Visit: Yes Status: Acute Assessment and plan: Patient's spoke to me outside of the patient's room stating he was concerned that she was depressed. He states that after she had 2 cardiac surgeries several years ago that she became depressed. I spoke directly to the patient regarding this concern. Patient does endorse both anxiety and depression at this time. She denies suicidal ideation. She states the last time this happened at the depression seemed to "go away on its own" and she states that she was not started on depression medication. She does not want depression medication at this time. - Subjective Interval history: Patient is seen and examined. On examination, patient sitting upright in bed watching television. Patient stating she is feeling better though continues to endorse shortness of breath above her norm. Patient stating she continues to be extremely nervous about going home stating that she feels really weak and is afraid that she is just going to have to come right back in. Her is at the bedside and pulled me out into the hallway to tell me that he is concerned she may be "severely depressed again like she was 8 or 9 years ago after her big surgery. It took me 2 and a half months to convince her doctors that she needed depression medication." - Constitutional Vitals: Temp Pulse Resp BP Pulse Ox 97.8 F 78 18 131/82 94 L 10/03/16 10:46 10/03/16 10:46 10/03/16 10:46 10/03/16 10:46 10/03/16 10:46 General appearance: Present: mild distress, A&O X 3, pleasant, obese, answers questions appropriately - Head Head exam: Present: atraumatic, normocephalic - Eye Eye exam: Present: PERRL, conjuntiva pink, sclera anicteric Pupils: Present: PERRL - Neck Neck exam general surgery: Present: supple, trachea midline. Absent: lymphadenopathy - Respiratory Respiratory exam: Present: accessory muscle use, decreased breath sounds, respiratory distress (mild), rhonchi, wheezes. Absent: rales - Cardiovascular Cardiovascular exam: Present: RRR, +S1, +S2. Absent: diastolic murmur, gallop, rubs, systolic murmur - GI/Abdominal GI/Abdominal exam: Present: normal bowel sounds, soft, no peritoneal signs. Absent: distended, tenderness - Extremities Exam Extremities exam: Present: warm, radial pulses palpable and symetrical. Absent : calf tenderness, cyanotic, pedal edema - Neurological Exam Neurological exam: Present: alert, CN II-XII intact, oriented X3, no focal deficits, strengths equal and symetr throughout. Absent: pronater drift, facial droop, speech deficit - Psychiatric Psychiatric exam: Present: anxious, depressed. Absent: suicidal ideation - Skin Skin exam: Present: dry, intact, pallor, warm Internal Medicine: Result - Labs CBC & Chem 7: 10/03/16 03:56 10/03/16 03:56 Labs: Short CBC 10/03/16 Range/Units 03:56 WBC 11.3 H (4.3-11.1) K/mcL Hgb 11.5 (11.5-15.4) g/dL Hct 35.8 (35.3-44.9) % Plt Count 316 (140-400) K/mcL Neutrophils # 8.9 (1.6-8.9) K/mcL BMP 10/03/16 03:56 Sodium 139 Potassium 4.4 Chloride 104 Carbon Dioxide 26 BUN 32 H Creatinine 1.29 H Glucose 173 H Calcium 9.4 Urine 10/02/16 Range/Units 17:45 Urine Color Yellow (Yellow) Urine Clarity Clear (Clear) Urine pH 6.0 (5.0-8.0) pH Units Ur Specific [place] 1.019 (1.010-1.025) Urine Protein Negative (Neg-Trace) mg/dL Urine Glucose (UA) 500 H (Normal) mg/dL - ABG Interpretation ABG results: ABG ABG pH 7.40 pH Units (7.32-7.45) 09/30/16 18:20 ABG pCO2 39 mmHg (35-45) 09/30/16 18:20 ABG pO2 95 mmHg (85-104) 09/30/16 18:20 ABG O2 Saturation 97 % (95-98) 09/30/16 18:20 PT/INR, D-dimer PT 12.2 Seconds (9.4-12.1) H 09/30/16 16:43 Consult Discharge Plan - Plan Referrals: Alison Choudhury CNP [Advanced Practice Nurse] - 10/08/16 1:30 pm
[2016-10-03] MEDS ORDERED: Benzonatate 100 MG CAPSULE PO PRN (12:50)
[2016-10-03] MEDS: Levofloxacin 750 MG/150 ML 750 MG/150 ML BAG IVPB SCH (17:25)
[2016-10-03] MEDS ORDERED: *HR* LORazepam 2 MG/ML VIAL IVP ONE (21:37)
[2016-10-03] MEDS ORDERED: Water for inj. (sterile) 10 ML IV ONE (21:45)
[2016-10-03] MEDS: Dextromethorphan Polistrx(12h) 30 MG/5 ML UDC PO PRN (21:48)
[2016-10-04] MEDS: Budesonide/Formoterol 160/4.5 MDI IH SCH ×3 (00:20→22:46)
[2016-10-04] MEDS: Ipratropium/Albuterol Neb 3 ML IH SCH ×5 (00:20→22:46)
[2016-10-04 05:07] LABS: Hematocrit 40.6 % (35.3-44.9); Hemoglobin 12.3 g/dL (11.5-15.4); Mean Corpuscular HGB Conc 30.3 g/dL (31.6-35.5); Mean Corpuscular Hemoglobin 29.8 pg (28.0-33.3); Mean Corpuscular Volume 98.3 fL (83.0-100.0); Mean Platelet Volume 10.6 fL (9.4-12.4); Nucleated Red Blood Cells 0.2 /100 WBC (0); Platelet Count 248 K/mcL (140-400); Red Blood Count 4.13 M/mcL (3.82-4.97); Red Cell Distribution Width 13.8 % (11.5-14.5)
[2016-10-04 05:19] LABS: Calcium 9.6 mg/dL (8.6-10.8)
[2016-10-04 05:20] LABS: Potassium 5.2 mEq/L (3.5-4.5)
[2016-10-04 05:43] LABS: Lymphocytes # 2.3 K/mcL (0.6-4.6); Monocytes # 0.2 K/mcL (0.0-1.3); Platelet Estimate Normal (Normal); Reactive Lymphocytes Present (Not Present)
[2016-10-04] MEDS: Cefepime HCl 1,000 MG in D5% in Water (Mini-Bag+) 100 ML IVPB SCH ×2 (05:49→16:40)
[2016-10-04] MEDS: *HR* Heparin 5,000 UNIT/ML VIAL SQ SCH ×2 (05:49→16:40)
[2016-10-04] MEDS: Metoprolol XL (24 HR) Succ 50 MG TAB.ER.24H PO SCH (10:00)
[2016-10-04] MEDS: predniSONE 20 MG TABLET PO SCH (10:00)
[2016-10-04] MEDS: Aspirin 81 MG TAB.CHEW PO SCH (10:00)
[2016-10-04] MEDS: Furosemide 40 MG/4 ML VIAL IVP SCH (10:00)
[2016-10-04] MEDS: Insulin LISPRO 300 UNITS/3 ML VIAL SQ SCH ×4 (10:01→21:24)
--- NOTE | 2016-10-04 14:51 | Internal Med Progress Note ---
Date of Encounter: 10/04/16 Time of Encounter: 10:30 - Assessment and plan (1) HCAP (healthcare-associated pneumonia) Current Visit: Yes Status: Acute Assessment and plan: On examination, patient is sitting upright in her chair. She is much more alert and interactive and states that she feels 100% better today. Aeration has improved and she remains on her home dose of oxygen which is 2 L per nasal cannula continuously. Repeat chest CT revealing possible worsening of suspected empyema. CT revealing consolidation and volume loss to the right middle and lower lobes increased from prior reading at the end of July. Pulmonology has been brought on board. Concern for possible need for thoracentesis and/or decortication at pulmonology's discretion. I am concerned that this worsening suspected empyema could be contributing to her recurrent readmissions with recurrent bouts of pneumonia. Disposition to be determined per pulmonology recommendation. ITS Impressions Chest CT 10/03/16 12:00 IMPRESSION: Mild patchy airspace disease in the right lung, including peripheral consolidation and volume loss in the right middle and lower lobes, increased from 08/27/2016. Scattered tree-in-bud opacities consistent with infectious/inflammatory disease to include aspiration. Stable small loculated right posterior pleural effusion with pleural thickening. Additional bibasilar parenchymal bands and areas of consolidation with volume loss, stable, consistent with focal scarring. Mildly enlarged subcarinal and hilar lymph nodes, possibly reactive. D/ / Abrahan Arriaga MD / Abrahan Arriaga MD Interpreting Provider: Abrahan Arriaga MD 10/03/16 Patient stating her shortness of breath has improved since admission but she states she is not back to her baseline. Continue cefepime and levoflox. Yesterday, her lungs were clear with fair to good aeration. Today, I have noted coarse wheezing to her posterior lung field- will order chest CT at this time to assess status of pneumonia and possible fluid overload although she appears euvolemic on examination. Ambulate TID- encourage ambulation. Of note , patient continually endorsing her concern and fear that she will be discharged too early. In review of her chart, this is her third admission in the last month and a half. Will repeat chest CT given new adventitious breath sounds noted on examination today. Will also bring OT and PT onboard as she is endorsing generalized weakness. Continued vigilance and monitoring of her clinical status critical to prevent likely readmission in the near future should she go home today. Not going to be discharged today. ITS Impressions Chest X-Ray 09/30/16 16:00 IMPRESSION: Interval increase and mild congestive changes. Asymmetric opacity at the left lung base may represent asymmetric pulmonary edema, atelectasis, or pneumonia. Recommend follow-up as clinically indicated. D/ / 09/30/2016 16:31:46 Melvin Joshua MD / Neris Carbajal Interpreting Provider: Melvin Joshua MD Chest X-Ray 10/01/16 08:00 IMPRESSION: Left basilar opacity is unchanged and could represent atelectasis or pneumonia. D/ / Darius Majano MD / Darius Majano MD Interpreting Provider: Darius Majano MD (2) Empyema of lung Current Visit: Yes Status: Suspected Assessment and plan: Repeat chest CT compared with prior report from 2 months ago, concern for empyema which is likely contributing to the patient's recurrent pneumonias and recurrent admissions as this is her third admission in the last 2 months. Pulmonology on board for possible thoracentesis and/or decortication at their discretion. (3) Acute chronic obstructive pulmonary disease with respiratory distress Current Visit: Yes Status: Acute Assessment and plan: Patient states she feels as if she is back to her baseline. She will need to see pulmonology prior to disposition. Continue supplemental oxygenation and pulmonary toilet. Aeration improved today. Continue BiPAP as needed, will transition back to CPAP upon discharge. (4) Acute and chronic respiratory failure Current Visit: Yes Status: Acute Assessment and plan: At home, patient used to be on 2 L per nasal cannula continuously however the past several weeks, she has needed 3 L. [place], she has weaned back to 2L. She also utilizes CPAP at home. She states that the CPAP helps her more than the BiPAP. Continue pulmonary toilet. Qualifiers: Respiratory failure complication: hypoxia Qualified Code(s): J96.21 - Acute and chronic respiratory failure with hypoxia (5) Acute on chronic diastolic heart failure Current Visit: Yes Status: Acute Assessment and plan: Euvolemic on examination, renal functioning stable. Patient now denies shortness of breath above her norm. We will de-escalate Lasix and transitioned back to by mouth. She is on 40 mg of Lasix daily at home however her states that she is noncompliant most of the time stating that she does not want to void frequently. She has been educated on sodium and fluid restricted diet as well as importance of taking her medications as prescribed. 10/03/16 Continue diuresis- Lasix deescalated yesterday given slight decline in her renal functioning. She appears euvolemic on examination however coarse crackles noted on examination to her posterior lung jarquin that was not present yesterday. Chest CT pending. Continue daily weight checks, input/output, fluid restriction diet (6) CAD (coronary artery disease) Current Visit: Yes Status: Chronic Assessment and plan: Stable, resume home meds. Patient denies chest pain. Qualifiers: Coronary Disease-Associated Artery/Lesion type: bypass graft [place] vs. transplanted heart: jamul heart Associated angina: without angina Qualified Code(s): I25.810 - Atherosclerosis of coronary artery bypass graft(s) without angina pectoris (7) CKD (chronic kidney disease) stage 3, GFR 30-59 ml/min Current Visit: Yes Status: Chronic Assessment and plan: Stable. Lasix was deescalated. (8) HTN (hypertension) Current Visit: Yes Status: Chronic Assessment and plan: Controlled. We will continue to trend and adjust medications as indicated. Qualifiers: Hypertension type: essential hypertension Qualified Code(s): I10 - Essential (primary) hypertension (9) Type 2 diabetes mellitus Current Visit: Yes Status: Chronic Assessment and plan: Uncontrolled with recent A1c of 9.9%. Continue sliding scale while admitted. Qualifiers: Diabetes mellitus complication status: with kidney complications Diabetes mellitus complication detail: with chronic kidney disease Diabetes mellitus exterminator termite insulin use: with retirement use Chronic kidney disease stage: stage 3 (moderate) Qualified Code(s): E11.22 - Type 2 diabetes mellitus with diabetic chronic kidney disease; N18.3 - Chronic kidney disease, stage 3 ( moderate); Z79.4 - supervisor intermediates (current) use of insulin (10) DVT prophylaxis Current Visit: No Status: Acute Assessment and plan: Subcutaneous heparin (11) BAILEY on CPAP Current Visit: No Status: Chronic (12) Leukocytosis Current Visit: Yes Status: Resolved Qualifiers: Leukocytosis type: unspecified Qualified Code(s): D72.829 - Elevated white blood cell count, unspecified (13) Hyperkalemia Current Visit: Yes Status: Acute Assessment and plan: Asymptomatic, will trend (14) Depression Current Visit: Yes Status: Acute Assessment and plan: Mood and affect elevated today. She is much more alert, interactive, and pleasant 10/03/16 Patient's spoke to me outside of the patient's room stating he was concerned that she was depressed. He states that after she had 2 cardiac surgeries several years ago that she became depressed. I spoke directly to the patient regarding this concern. Patient does endorse both anxiety and depression at this time. She denies suicidal ideation. She states the last time this happened at the depression seemed to "go away on its own" and she states that she was not started on depression medication. She does not want depression medication at this time. - Subjective Interval history: Patient is seen and examined. On examination, patient is sitting upright in her chair. Patient stating she feels "100% better." She states that she has been able to walk around the unit. She states her breathing is much improved and states that she is tolerating a regular diet. - Constitutional Vitals: Temp Pulse Resp BP Pulse Ox 97.4 F L 81 17 104/62 95 10/04/16 10:40 10/04/16 10:40 10/04/16 10:40 10/04/16 10:40 10/04/16 10:40 General appearance: Present: A&O X 3, pleasant, no acute distress, obese, answers questions appropriately - Head Head exam: Present: atraumatic, normocephalic - Eye Eye exam: Present: PERRL, conjuntiva pink, sclera anicteric Pupils: Present: PERRL - Neck Neck exam general surgery: Present: supple, trachea midline. Absent: lymphadenopathy - Respiratory Respiratory exam: Present: accessory muscle use, decreased breath sounds, prolonged expiratory phase, rhonchi, wheezes. Absent: rales, respiratory distress - Cardiovascular Cardiovascular exam: Present: RRR, +S1, +S2. Absent: diastolic murmur, gallop, rubs, systolic murmur - GI/Abdominal GI/Abdominal exam: Present: distended, normal bowel sounds, soft, no peritoneal signs. Absent: tenderness - Extremities Exam Extremities exam: Present: warm, radial pulses palpable and symetrical. Absent : calf tenderness, cyanotic, pedal edema - Neurological Exam Neurological exam: Present: alert, CN II-XII intact, normal gait, oriented X3, no focal deficits, strengths equal and symetr throughout. Absent: pronater drift, facial droop, speech deficit - Skin Skin exam: Present: dry, intact, normal color, warm Internal Medicine: Result - Labs CBC & Chem 7: 10/04/16 04:43 10/04/16 04:43 Labs: Short CBC 10/04/16 Range/Units 04:43 WBC 10.3 (4.3-11.1) K/mcL Hgb 12.3 (11.5-15.4) g/dL Hct 40.6 (35.3-44.9) % Plt Count 248 (140-400) K/mcL Neutrophils # 7.0 (1.6-8.9) K/mcL BMP 10/04/16 04:43 Sodium 140 Potassium 5.2 H Chloride 106 Carbon Dioxide 24 BUN 39 H Creatinine 1.41 H Glucose 194 H Calcium 9.6 - ABG Interpretation ABG results: ABG ABG pH 7.40 pH Units (7.32-7.45) 09/30/16 18:20 ABG pCO2 39 mmHg (35-45) 09/30/16 18:20 ABG pO2 95 mmHg (85-104) 09/30/16 18:20 ABG O2 Saturation 97 % (95-98) 09/30/16 18:20 PT/INR, D-dimer PT 12.2 Seconds (9.4-12.1) H 09/30/16 16:43 Consult Discharge Plan - Plan Referrals: Alison Choudhury RETAIL COORDINATOR [Advanced Practice Nurse] - 10/08/16 1:30 pm
--- NOTE | 2016-10-04 15:42 | Cardiothoracic Consult Note ---
Date of Encounter: 10/04/16 Time of Encounter: 15:39 Assessment and Plan (1) Acute and chronic respiratory failure Current Visit: Yes Status: Acute The assessment and plan as outlined above was discussed with the patient and/or family members who expressed understanding and agreement. All questions were answered. The patient's CT scan of her chest was reviewed with invasive radiology. This reveals a small right pleural effusion that has been stable since 2004. There is no evidence of infection. No air or other signs of active infection. This is too small for placement of a chest tube by radiology. Her white blood cell count is normal at 10,000. She states that she is been generally afebrile. Her recurrent chest infections may be related to sleep apnea, diastolic dysfunction with congestive heart failure or aspiration. There is no indication for surgery. Qualifiers: Respiratory failure complication: hypoxia Qualified Code(s): J96.21 - Acute and chronic respiratory failure with hypoxia - History of Present Illness History of present illness: Ms. Florez is a 76 year old female History of present illness. Patient is a 76-year-old female who has presented with recurrent bronchitis and pneumonia. She has had 3 episodes in the last 6 months. Symptoms consist of cough, shortness of breath and fatigue. She states that she had no fever at home that she knows of. Past medical history. In 2007 she sustained a myocardial infarction. She had triple bypass with mitral valve repair in [place]. Shortly thereafter she was emergently transferred to [place] for mitral valve replacement. She does have diabetes on insulin. She has had multiple surgeries including ventral hernia repair with mesh, total abdominal hysterectomy, cholecystectomy, appendectomy and colon resection. She is allergic to codeine and narcotics. Family history is positive for coronary artery disease. Social history. She lives outside [place] with her . Does not smoke. Rarely drinks alcohol. Review of systems is otherwise negative. Past Med Surg Social Fam HX - Past Medical History Medical history: CHF (diastolic), COPD (chronic bronghitis, restrictive lung disease.), coronary artery disease, diabetes, hyperlipidemia, myocardial infarction, renal disease, valvular heart disease Psychiatric history: anxiety, depression - Past Surgical History Surgical History: appendectomy, cholecystectomy, coronary bypass (CABG), heart valve replacement (mitral valve - porcine), hysterectomy, knee replacement, other, pacemaker - Social History Smoking Status: Never smoker Smokeless Tobacco Status: No Alcohol use: none Drug use: none - Family History Father Living Status: Age at : 68 Cause of : [place] Mother Living Status: Hx Family Cardiac Disorders: Yes Hx Family Respiratory Disorders: Yes (COPD) Hx Family Cancer: Yes (Colon.) Hx Family GI Disorders: No Hx Family Endocrine Disorder: No Hx Family Neuromuscular Disorders: No Hx Family Neurologic Disorders: No Hx Family HEENT Disorders: No Hx Family Autoimmune Disorders: No Medications and Allergies Aspirin 81 mg PO DAILY 02/07/16 [History] Clopidogrel [Plavix] 75 mg PO DAILY 02/07/16 [History] Metoprolol XL (24 HR) Succ [Toprol Xl] 100 mg PO DAILY 08/21/16 [History] Insulin Glargine,Hum.rec.anlog [Lantus Solostar] 25 unit SQ DAILY 30 Days [Rx] Insulin LISPRO [HumaLOG] 0 units SQ TIDAC 30 Days 09/14/16 [Rx] Budesonide/Formoterol 80/4.5 [Symbicort 80/4.5] 1 puff IH BIDR PRN 09/30/16 [ History] Ipratropium/Albuterol Neb [Duoneb] 3 ml IH Q4HR PRN 09/30/16 [History] Albuterol Sulfate [Albuterol Inhaler] 2 puff IH Q4HR PRN 10/01/16 [History] Furosemide [Lasix] 40 mg PO DAILY 10/01/16 [History] Allergies acetaminophen [From Darvocet-N] Allergy (Verified 10/01/16 13:46) Nausea codeine Allergy (Verified 10/01/16 13:46) See Comments "GOES INTO COMA" morphine Allergy (Verified 10/01/16 13:46) Nausea propoxyphene [From Darvocet-N] Allergy (Verified 10/01/16 13:46) Nausea All Systems Review: A 10-system review of systems was performed and is negative for pertinent findings except as documented above in the HPI. Physical Examination Vital Signs, Last 4 Hours Temp Pulse Resp BP Pulse Ox 10/04/16 15:32 98.0 F 73 15 113/74 95 Pupils are equal, round and reactive to light and accommodation. No oral lesions. Neck is supple. Trachea in the midline. No thyromegaly or carotid bruits. Lungs are clear to percussion and auscultation. Heart is in a regular rate and rhythm. She is status post pacemaker placement. Her chest incision is well healed and her sternum is stable. Abdomen is noted for multiple surgeries. No tenderness, rebound or guarding. No hepatosplenomegaly or masses. Extremities without edema. 1+ pulses. Cranial nerves, motor and sensory intact. She is awake, alert and oriented 3. Results 10/04/16 04:43 10/04/16 04:43 Lab Results, Last 24 hours 10/04/16 10/04/16 04:43 04:43 WBC 10.3 Hgb 12.3 Hct 40.6 Plt Count 248 Sodium 140 Potassium 5.2 H Chloride 106 Carbon Dioxide 24 BUN 39 H Creatinine 1.41 H Glucose 194 H Calcium 9.6 Consult Discharge Plan - Plan Referrals: Alison Choudhury PRECINCT I POLICE SERGEANT [Advanced Practice Nurse] - 10/08/16 1:30 pm
--- NOTE | 2016-10-04 16:33 | Pulmonology Consult Note ---
<Hank Garcia - Last Filed: 10/04/16 16:30> Date of Encounter: 10/04/16 Time of Encounter: 16:30 Assessment and Plan (1) Pleural effusion Current Visit: Yes Status: Acute Loculated on CT scan. Because of this time is unclear, differential includes infectious, inflammatory, malignant, or related to an underlying symptoms systemic disorder such as heart failure renal disease. Cardiothoracic surgery saw the patient and do not feel she is a candidate for surgical intervention at this time. Given the size and is not amenable to drainage. Recommend course of antibiotics, perhaps prolonged given the patient's history of recurrence. Patient will likely benefit from repeat CT scan in future to monitor resolution. History of Present Illness Consult date: 10/04/16 Requesting physician: Indy Pardo Reason for consult: pleural effusion Chief complaint: Shortness of breath History of present illness: Patient is a 76-year-old female with history of coronary artery disease, heart failure who presents with cough, shortness of breath, fatigue. She states her symptoms first began approximately 6 weeks ago and she had been admitted to the hospital 3 times since then for pneumonia. She receives antibiotics and improved for a short time and then her symptoms recur. She denies productive cough, fever, chills, chest pain. Past Med Surg Social Fam HX - Past Medical History Medical history: CHF (diastolic), COPD (chronic bronghitis, restrictive lung disease.), coronary artery disease, diabetes, hyperlipidemia, myocardial infarction, renal disease, valvular heart disease Psychiatric history: anxiety, depression - Past Surgical History Surgical History: appendectomy, cholecystectomy, coronary bypass (CABG), heart valve replacement (mitral valve - porcine), hysterectomy, knee replacement, other, pacemaker - Social History Smoking Status: Never smoker Smokeless Tobacco Status: No Alcohol use: none Drug use: none - Family History Father Living Status: Age at : 68 Cause of : ME Mother Living Status: Hx Family Cardiac Disorders: Yes Hx Family Respiratory Disorders: Yes (COPD) Hx Family Cancer: Yes (Colon.) Hx Family GI Disorders: No Hx Family Endocrine Disorder: No Hx Family Neuromuscular Disorders: No Hx Family Neurologic Disorders: No Hx Family HEENT Disorders: No Hx Family Autoimmune Disorders: No Medications and Allergies Aspirin 81 mg PO DAILY 02/07/16 [History] Clopidogrel [Plavix] 75 mg PO DAILY 02/07/16 [History] Metoprolol XL (24 HR) Succ [Toprol Xl] 100 mg PO DAILY 08/21/16 [History] Insulin Glargine,Hum.rec.anlog [Lantus Solostar] 25 unit SQ DAILY 30 Days [Rx] Insulin LISPRO [HumaLOG] 0 units SQ TIDAC 30 Days 09/14/16 [Rx] Budesonide/Formoterol 80/4.5 [Symbicort 80/4.5] 1 puff IH BIDR PRN 09/30/16 [ History] Ipratropium/Albuterol Neb [Duoneb] 3 ml IH Q4HR PRN 09/30/16 [History] Albuterol Sulfate [Albuterol Inhaler] 2 puff IH Q4HR PRN 10/01/16 [History] Furosemide [Lasix] 40 mg PO DAILY 10/01/16 [History] Allergies acetaminophen [From Darvocet-N] Allergy (Verified 10/01/16 13:46) Nausea codeine Allergy (Verified 10/01/16 13:46) See Comments "GOES INTO COMA" morphine Allergy (Verified 10/01/16 13:46) Nausea propoxyphene [From Darvocet-N] Allergy (Verified 10/01/16 13:46) Nausea All Systems: A 10-system review of systems was performed and is negative for pertinent findings except as documented above in the HPI. - Constitutional Constitutional: no chills, no fever(s) - Cardiovascular Cardiovascular: dyspnea, no chest pain, no chest pain at rest, no chest pain with activity, no edema, no pedal edema - Respiratory Respiratory: cough, dyspnea, no hemoptysis, no wheezing, no excessive phlegm production, no change in phlegm color - Gastrointestinal Gastrointestinal: no diarrhea, no nausea, no vomiting - Musculoskeletal Musculoskeletal: no numbness, no tingling Physical Examination Vital Signs: Vital Signs, Last 4 Hours Temp Pulse Resp BP Pulse Ox 10/04/16 15:32 98.0 F 73 15 113/74 95 General appearance: no acute distress ENT: oropharynx moist Auscultation: bilateral: clear Cardiovascular: regular rate and rhythm Gastrointestinal: normoactive bowel sounds, soft, non-tender, non-distended Extremities: no cyanosis, no edema, no clubbing normal mental status, non-focal exam Results - Laboratory Findings CBC and BMP: 10/04/16 04:43 10/04/16 04:43 ABG ABG pH 7.40 pH Units (7.32-7.45) 09/30/16 18:20 ABG pCO2 39 mmHg (35-45) 09/30/16 18:20 ABG pO2 95 mmHg (85-104) 09/30/16 18:20 ABG O2 Saturation 97 % (95-98) 09/30/16 18:20 PT/INR, D-dimer PT 12.2 Seconds (9.4-12.1) H 09/30/16 16:43 Abnormal lab findings: Abnormal lab results MCHC 30.3 g/dL (31.6-35.5) L 10/04/16 04:43 Immature Gran % 4.8 % (0-4) H 10/03/16 03:56 Metamyelocytes % 6.0 % (0) H 10/04/16 04:43 Myelocytes % 2.0 % (0) H 10/04/16 04:43 Nucleated RBCs/100 WBC 0.2 /100 WBC (0) H 10/04/16 04:43 Reactive Lymphocytes Present (Not Present) A 10/04/16 04:43 Dohle Bodies Present (Not Present) A 09/30/16 16:43 PT 12.2 Seconds (9.4-12.1) H 09/30/16 16:43 Potassium 5.2 mEq/L (3.5-4.5) H 10/04/16 04:43 BUN 39 mg/dL (7-20) H 10/04/16 04:43 Creatinine 1.41 mg/dL (0.57-1.11) H 10/04/16 04:43 Est GFR ( Amer) 44 (> 60) L 10/04/16 04:43 Est GFR (Non-Af Amer) 36 (> 60) L 10/04/16 04:43 BUN/Creatinine Ratio 28 (6-26) H 10/04/16 04:43 Glucose 194 mg/dL (70-99) H 10/04/16 04:43 POC Glucose 308 (58-89) H 10/03/16 20:34 Calculated Osmolality 305 (280-300) H 10/04/16 04:43 B-Natriuretic Peptide 125 pg/mL (0-100) H 09/30/16 16:43 Albumin 3.2 g/dL (3.5-5.0) L 09/30/16 16:43 Globulin 3.6 g/dL (2.4-3.5) H 09/30/16 16:43 Albumin/Globulin Ratio 0.9 (1.1-2.2) L 09/30/16 16:43 Urine Glucose (UA) 500 mg/dL (Normal) H 10/02/16 17:45 Urine Blood Trace (Negative) H 10/02/16 17:45 - Clinical Findings Intake & Output: Intake & Output 10/04/16 10/04/16 10/04/16 07:59 15:59 23:59 Intake Total 200 / 200 480 / 480 350 / 350 Output Total 300 / 300 450 / 450 Balance -100 / -100 30 / 30 350 / 350 Weight 95.3 kg Consult Discharge Plan - Plan Referrals: Alison Choudhury, [employer] [Advanced Practice Nurse] - 10/08/16 1:30 pm <Lalo Hawkins - Last Filed: 10/04/16 21:23> Date of Encounter: 10/04/16 All Systems: A 10-system review of systems was performed and is negative for pertinent findings except as documented above in the HPI. Physical Examination Vital Signs: Vital Signs, Last 4 Hours Temp Pulse Resp BP Pulse Ox 10/04/16 19:01 98.3 F 77 16 116/72 97 Results - Laboratory Findings CBC and BMP: 10/04/16 04:43 10/04/16 04:43 ABG ABG pH 7.40 pH Units (7.32-7.45) 09/30/16 18:20 ABG pCO2 39 mmHg (35-45) 09/30/16 18:20 ABG pO2 95 mmHg (85-104) 09/30/16 18:20 ABG O2 Saturation 97 % (95-98) 09/30/16 18:20 PT/INR, D-dimer PT 12.2 Seconds (9.4-12.1) H 09/30/16 16:43 Abnormal lab findings: Abnormal lab results MCHC 30.3 g/dL (31.6-35.5) L 10/04/16 04:43 Immature Gran % 4.8 % (0-4) H 10/03/16 03:56 Metamyelocytes % 6.0 % (0) H 10/04/16 04:43 Myelocytes % 2.0 % (0) H 10/04/16 04:43 Nucleated RBCs/100 WBC 0.2 /100 WBC (0) H 10/04/16 04:43 Reactive Lymphocytes Present (Not Present) A 10/04/16 04:43 Dohle Bodies Present (Not Present) A 09/30/16 16:43 PT 12.2 Seconds (9.4-12.1) H 09/30/16 16:43 Potassium 5.2 mEq/L (3.5-4.5) H 10/04/16 04:43 BUN 39 mg/dL (7-20) H 10/04/16 04:43 Creatinine 1.41 mg/dL (0.57-1.11) H 10/04/16 04:43 Est GFR ( Amer) 44 (> 60) L 10/04/16 04:43 Est GFR (Non-Af Amer) 36 (> 60) L 10/04/16 04:43 BUN/Creatinine Ratio 28 (6-26) H 10/04/16 04:43 Glucose 194 mg/dL (70-99) H 10/04/16 04:43 POC Glucose 308 (58-89) H 10/03/16 20:34 Calculated Osmolality 305 (280-300) H 10/04/16 04:43 B-Natriuretic Peptide 125 pg/mL (0-100) H 09/30/16 16:43 Albumin 3.2 g/dL (3.5-5.0) L 09/30/16 16:43 Globulin 3.6 g/dL (2.4-3.5) H 09/30/16 16:43 Albumin/Globulin Ratio 0.9 (1.1-2.2) L 09/30/16 16:43 Urine Glucose (UA) 500 mg/dL (Normal) H 10/02/16 17:45 Urine Blood Trace (Negative) H 10/02/16 17:45 - Clinical Findings Intake & Output: Intake & Output 10/04/16 10/04/16 10/04/16 07:59 15:59 23:59 Intake Total 200 / 200 480 / 480 710 / 710 Output Total 300 / 300 450 / 450 Balance -100 / -100 30 / 30 710 / 710 Weight 95.3 kg - Attending Attestation I examined this patient and my medical decision-making was reviewed with the SCREW MACHINE SET UP OPERATOR TOOL/PA/Advanced Practice Nurse/Resident Physician. I agree with the documented findings, disposition and treatment plan as described except to the extent set forth below. Patient seen and examined with resident and reviewed CT images as well. Patient breath sounds clear, but diminished. RRR Abdomen soft and not tender Cardiothoracic consulted to check on the small area of the loculated effusion, which could be source of fever, but the area is small and doubt IR can drain it. Answered all patient and her family questions. Thanks for the consult and please call for any questions.
[2016-10-04] MEDS ORDERED: *HR* LORazepam 2 MG/ML VIAL IVP ONE (21:08)
[2016-10-04] MEDS ORDERED: Water for inj. (sterile) 10 ML IV ONE (21:20)
[2016-10-04] MEDS: Dextromethorphan Polistrx(12h) 30 MG/5 ML UDC PO PRN (21:35)
[2016-10-05] MEDS: Ipratropium/Albuterol Neb 3 ML IH SCH ×2 (04:29→12:00)
[2016-10-05 05:38] LABS: Calcium 9.8 mg/dL (8.6-10.8); Potassium 4.9 mEq/L (3.5-4.5)
[2016-10-05] MEDS: Cefepime HCl 1,000 MG in D5% in Water (Mini-Bag+) 100 ML IVPB SCH (06:14)
[2016-10-05] MEDS: *HR* Heparin 5,000 UNIT/ML VIAL SQ SCH (06:14)
[2016-10-05] MEDS: Insulin LISPRO 300 UNITS/3 ML VIAL SQ SCH ×2 (08:16→12:08)
[2016-10-05] MEDS: Aspirin 81 MG TAB.CHEW PO SCH (08:17)
[2016-10-05] MEDS: predniSONE 20 MG TABLET PO SCH (08:17)
[2016-10-05] MEDS: Metoprolol XL (24 HR) Succ 50 MG TAB.ER.24H PO SCH (08:17)
[2016-10-05] MEDS ORDERED: Furosemide 40 MG TABLET PO SCH (09:00)
[2016-10-05 11:31] VITALS: BP 106/70
[2016-10-05] MEDS: Budesonide/Formoterol 160/4.5 MDI IH SCH (11:59)
--- NOTE | 2016-10-05 12:55 | Discharge Summary ---
Date of Encounter: 10/05/16 Time of Encounter: 10:30 - Discharge Diagnosis (1) HCAP (healthcare-associated pneumonia) Priority: Primary Status: Acute Comments: Aeration much improved on the final two days of her admission. Patient denies shortness of breath above her normal day of discharge. She will return to her supplemental oxygen requirement at home which is 2 L continuously and CPAP for sleep. Per pulmonology recommendations, will extend antibiotic therapy for 2 weeks. 10/04/16 On examination, patient is sitting upright in her chair. She is much more alert and interactive and states that she feels 100% better today. Aeration has improved and she remains on her home dose of oxygen which is 2 L per nasal cannula continuously. Repeat chest CT revealing possible worsening of suspected empyema. CT revealing consolidation and volume loss to the right middle and lower lobes increased from prior reading at the end of July. Pulmonology has been brought on board. Concern for possible need for thoracentesis and/or decortication at pulmonology's discretion. I am concerned that this worsening suspected empyema could be contributing to her recurrent readmissions with recurrent bouts of pneumonia. Disposition to be determined per pulmonology recommendation. ITS Impressions Chest CT 10/03/16 12:00 IMPRESSION: Mild patchy airspace disease in the right lung, including peripheral consolidation and volume loss in the right middle and lower lobes, increased from 08/27/2016. Scattered tree-in-bud opacities consistent with infectious/inflammatory disease to include aspiration. Stable small loculated right posterior pleural effusion with pleural thickening. Additional bibasilar parenchymal bands and areas of consolidation with volume loss, stable, consistent with focal scarring. Mildly enlarged subcarinal and hilar lymph nodes, possibly reactive. D/ / Abrahan Arriaga MD / Abrahan Arriaga MD Interpreting Provider: Abrahan Arriaga MD 10/03/16 Patient stating her shortness of breath has improved since admission but she states she is not back to her baseline. Continue cefepime and levoflox. Yesterday, her lungs were clear with fair to good aeration. Today, I have noted coarse wheezing to her posterior lung field- will order chest CT at this time to assess status of pneumonia and possible fluid overload although she appears euvolemic on examination. Ambulate TID- encourage ambulation. Of note , patient continually endorsing her concern and fear that she will be discharged too early. In review of her chart, this is her third admission in the last month and a half. Will repeat chest CT given new adventitious breath sounds noted on examination today. Will also bring OT and PT onboard as she is endorsing generalized weakness. Continued vigilance and monitoring of her clinical status critical to prevent likely readmission in the near future should she go home today. Not going to be discharged today. ITS Impressions Chest X-Ray 09/30/16 16:00 IMPRESSION: Interval increase and mild congestive changes. Asymmetric opacity at the left lung base may represent asymmetric pulmonary edema, atelectasis, or pneumonia. Recommend follow-up as clinically indicated. D/ / 09/30/2016 16:31:46 Melvin Joshua MD / Neris Carbajal Interpreting Provider: Melvin Joshua MD Chest X-Ray 10/01/16 08:00 IMPRESSION: Left basilar opacity is unchanged and could represent atelectasis or pneumonia. D/ / Darius Majano MD / Darius Majano MD Interpreting Provider: Darius Majano MD (2) Empyema of lung Priority: Primary Status: Suspected Comments: Cardiothoracic surgery evaluated the patient did not feel she was a surgical candidate at this time. Recommend follow-up outpatient. (3) Acute chronic obstructive pulmonary disease with respiratory distress Priority: Primary Status: Acute (4) Acute and chronic respiratory failure Priority: Primary Status: Acute Qualifiers: Respiratory failure complication: hypoxia Qualified Code(s): J96.21 - Acute and chronic respiratory failure with hypoxia (5) Acute on chronic diastolic heart failure Priority: Primary Status: Acute Comments: Euvolemic on examination, renal functioning stable. Patient denied shortness of breath above her norm on day of discharge. She is on 40 mg of Lasix daily at home however her states that she is noncompliant most of the time stating that she does not want to void frequently. She has been educated on sodium and fluid restricted diet as well as importance of taking her medications as prescribed. Resume current home dosage upon disposition. 10/03/16 Continue diuresis- Lasix deescalated yesterday given slight decline in her renal functioning. She appears euvolemic on examination however coarse crackles noted on examination to her posterior lung jarquin that was not present yesterday. Chest CT pending. Continue daily weight checks, input/output, fluid restriction diet (6) CAD (coronary artery disease) Priority: Secondary Status: Chronic Comments: Patient denied chest pain during this admission. Follow-up outpatient. Qualifiers: Coronary Disease-Associated Artery/Lesion type: bypass graft [place] vs. transplanted heart: [place] heart Associated angina: without angina Qualified Code(s): I25.810 - Atherosclerosis of coronary artery bypass graft(s) without angina pectoris (7) CKD (chronic kidney disease) stage 3, GFR 30-59 ml/min Priority: Secondary Status: Chronic Comments: Stable. Follow-up outpatient. (8) HTN (hypertension) Priority: Secondary Status: Chronic Comments: Controlled. Recommend continued monitoring and following up outpatient. Qualifiers: Hypertension type: essential hypertension Qualified Code(s): I10 - Essential (primary) hypertension (9) Type 2 diabetes mellitus Priority: Secondary Status: Chronic Comments: Uncontrolled with recent A1c of 9.9%. Follow-up outpatient. 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 She is much more alert, interactive, and pleasant. She declines any desire for depression medication. Follow-up outpatient. 10/03/16 Patient's spoke to me outside of the patient's room stating he was concerned that she was depressed. He states that after she had 2 cardiac surgeries several years ago that she became depressed. I spoke directly to the patient regarding this concern. Patient does endorse both anxiety and depression at this time. She denies suicidal ideation. She states the last time this happened at the depression seemed to "go away on its own" and she states that she was not started on depression medication. She does not want depression medication at this time. - Discharge Medications Prescriptions: LORazepam [Ativan] 0.5 mg PO HS PRN #7 tablet PRN Reason: Anxiety Levofloxacin 750 mg PO Q48H #14 tablet PredniSONE 40 mg PO DAILY #10 tablet Supplies [SUPPLIES] 1 each .ROUTE ONCE #1 each Home Medications: Aspirin 81 mg PO DAILY 02/07/16 [History] Clopidogrel [Plavix] 75 mg PO DAILY 02/07/16 [History] Metoprolol XL (24 HR) Succ [Toprol Xl] 100 mg PO DAILY 08/21/16 [History] Insulin Glargine,Hum.rec.anlog [Lantus Solostar] 25 unit SQ DAILY 30 Days [Rx] Insulin LISPRO [HumaLOG] 0 units SQ TIDAC 30 Days 09/14/16 [Rx] Budesonide/Formoterol 80/4.5 [Symbicort 80/4.5] 1 puff IH BIDR PRN 09/30/16 [ History] Ipratropium/Albuterol Neb [Duoneb] 3 ml IH Q4HR PRN 09/30/16 [History] Albuterol Sulfate [Albuterol Inhaler] 2 puff IH Q4HR PRN 10/01/16 [History] Furosemide [Lasix] 40 mg PO DAILY 10/01/16 [History] LORazepam [Ativan] 0.5 mg PO HS PRN #7 tablet 10/05/16 [Rx] Levofloxacin 750 mg PO Q48H #14 tablet 10/05/16 [Rx] PredniSONE 40 mg PO DAILY #10 tablet 10/05/16 [Rx] Supplies [SUPPLIES] 1 each .ROUTE ONCE #1 each 10/05/16 [Rx] Allergies/Adverse Reactions: Allergies acetaminophen [From Darvocet-N] Allergy (Verified 10/01/16 13:46) Nausea codeine Allergy (Verified 10/01/16 13:46) See Comments "GOES INTO COMA" morphine Allergy (Verified 10/01/16 13:46) Nausea propoxyphene [From Darvocet-N] Allergy (Verified 10/01/16 13:46) Nausea Procedures/tests Complete & Pending: Procedures Performed prior 72 hours Category Date Time Status CT chest wo con [CT] Routine Cat Scan 10/03/16 12:00 Completed Date of admission: 09/30/16 18:18 Primary care physician: Edgar Nguyen Jr, MD Consults: 10/01/16 13:34 Consult to Trailer Tank Truck Driver [CONS] Routine Comment: 10/03/16 12:49 Consult to Occupational Therapy [CONS] Routine Comment: Evaluate, develop and implement POC Consult to Physical Therapy [CONS] Routine Comment: Evaluate, develop and implement POC 10/04/16 07:37 Consult to Pulmonology [CONS] Routine Consulting Provider: [facility] Reason for Consult: increased need for O2, increased size of loculated pleural effusion since Jul, 2016. Call Completed: Yes 10/04/16 14:36 Consult to Cardiothoracic Surgery [CONS] Routine Consulting Provider: Cardiothoracic Surgery [place] Reason for Consult: Empyema Time Notified: 14:36 Call Completed: Yes Discharging clinician: Indy Pardo Anticipated date of discharge: 10/05/16 - Patient Status Disposition: Home, Self-Care Condition: Fair Functional capacity at discharge: independent ambulation Overall status at discharge: patient is back to baseline - Discharge Instructions Follow Up With: Alison Choudhury CNP [Advanced Practice Nurse] - 10/08/16 1:30 pm Additional Instructions: Follow-up with primary care provider as scheduled - Diet and Activity Activity: increase activity as tolerated, wear oxygen at all times Diet: diabetic diet, low fat, low cholesterol, low salt diet, other (Fluid restriction 1500 mL per day) Hospital course: Ms. Florez is a 76 year old female with past medical history of restrictive lung disease/chronic bronchitis, hypertension, chronic respiratory failure on 2 L per nasal cannula while awake and CPAP while asleep at home, CAD status post CABG, mitral valve replacement, pacemaker, diastolic heart failure, hyperlipidemia, diabetes, and chronic kidney disease stage III. Patient presented to emergency room chief complaint productive cough and shortness of breath. Patient stating her symptoms had worsened over the past 2-3 days prior to presentation. Patient also endorses chest tightness with her cough as well as a sore throat. Chest x-ray in the emergency department consistent with pneumonia. Patient was started on cefepime and levofloxacin and admitted to the hospitalist service for further evaluation and management. Blood cultures were negative. Urinalysis negative. Patient was admitted and observed over the course of 6 days. Of note, this is her third readmission for the same complaint over the past month and a half. In light of this, patient continually stating during the first 3 nights of her admission that she was very scared to go home stating she would just have to come right back. A repeat chest CT was obtained on day 4 which revealed suspected empyema and slightly worsening of her consolidation and volume loss to the right middle and right lower lobes worsened from prior reading at the end of July. Pulmonology was brought on board who also brought cardiothoracic surgery on board for possible consideration of thoracentesis to drain empyema and/or possible decortication. Cardiothoracic surgery did not feel this patient was a candidate for surgery. Pulmonology recommended extended antibiotic therapy upon discharge and follow-up outpatient. On days 5 and 6, patient had returned back to her baseline. She returned to 2 L per nasal cannula continuously and CPAP while asleep. Of note, she was gently diuresed during the first several days of her admission and her renal function and remained stable. She was placed back on her normal Lasix doses of 40 mg daily upon disposition. Leukocytosis resolved. She endorsed weakness during the first part of her admission and occupational and physical therapy were brought on board who surmised she had no needs. She is discharged home in stable condition with close outpatient follow-up recommended. Of note, patient would become increasingly anxious at bedtime during this admission and she was treated with low-dose Ativan. She was given a seven-day supply upon disposition, Oarrs report negative. ITS Impressions Chest X-Ray 09/30/16 16:00 IMPRESSION: Interval increase and mild congestive changes. Asymmetric opacity at the left lung base may represent asymmetric pulmonary edema, atelectasis, or pneumonia. Recommend follow-up as clinically indicated. D/ / 09/30/2016 16:31:46 Melvin Joshua MD / Neris Carbajal Interpreting Provider: Melvin Joshua MD Chest X-Ray 10/01/16 08:00 IMPRESSION: Left basilar opacity is unchanged and could represent atelectasis or pneumonia. D/ / Darius Majano MD / Darius Majano MD Interpreting Provider: Darius Majano MD Chest CT 10/03/16 12:00 IMPRESSION: Mild patchy airspace disease in the right lung, including peripheral consolidation and volume loss in the right middle and lower lobes, increased from 08/27/2016. Scattered tree-in-bud opacities consistent with infectious/inflammatory disease to include aspiration. Stable small loculated right posterior pleural effusion with pleural thickening. Additional bibasilar parenchymal bands and areas of consolidation with volume loss, stable, consistent with focal scarring. Mildly enlarged subcarinal and hilar lymph nodes, possibly reactive. D/ / Abrahan Arriaga MD / Abrahan Arriaga MD Interpreting Provider: Abrahan Arriaga MD - Time Spent with Patient Total time spent providing and/or coordinating discharge services: - Constitutional Vitals: Temp Pulse Resp BP Pulse Ox 97.6 F 64 16 106/70 96 10/05/16 11:31 10/05/16 11:31 10/05/16 11:31 10/05/16 11:31 10/05/16 11:31 General appearance: Present: A&O X 3, pleasant, no acute distress, obese, answers questions appropriately - Head Head exam: Present: atraumatic, normocephalic - Eye Eye exam: Present: PERRL, conjuntiva pink, sclera anicteric Pupils: Present: PERRL - Neck Neck exam general surgery: Present: supple, trachea midline. Absent: lymphadenopathy - Respiratory Respiratory exam: Present: decreased breath sounds. Absent: accessory muscle use, rales, respiratory distress, rhonchi, wheezes - Cardiovascular Cardiovascular exam: Present: RRR, +S1, +S2. Absent: diastolic murmur, gallop, rubs, systolic murmur - GI/Abdominal GI/Abdominal exam: Present: normal bowel sounds, soft, no peritoneal signs. Absent: distended, tenderness - Extremities Exam Extremities exam: Present: warm, radial pulses palpable and symetrical. Absent : calf tenderness, cyanotic, pedal edema - Neurological Exam Neurological exam: Present: alert, CN II-XII intact, normal gait, oriented X3, no focal deficits, strengths equal and symetr throughout. Absent: pronater drift, facial droop, speech deficit - Skin Skin exam: Present: dry, intact, normal color, warm
[2016-10-05] MEDS ORDERED: levoFLOXacin 750 MG TABLET PO SCH (17:00)
== END 2016-10-05 16:07 | disposition home or self-care (01) ==
LOC: EMEROO 15:44 → 3BNU 15:44 → SUATTDRO 18:18 → 3BNU 20:20
PROVIDERS: ADMIT Internal Medicine; ATTEND Nurse Practitioner Family

== ENCOUNTER 2016-11-10 12:52 | Observation (INO) ==
[2016-11-10] MEDS ORDERED: Ondansetron 4 MG/2 ML VIAL IV ONE (13:05)
[2016-11-10 13:55] LABS: Basophils % 0.3 %; Eosinophils % 0.9 %; Hematocrit 39.9 % (35.3-44.9); Hemoglobin 12.6 g/dL (11.5-15.4); Immature Granulocytes % 0.3 % (0-4); Lymphocytes # 0.8 K/mcL (0.6-4.6); Lymphocytes % 23.2 %; Mean Corpuscular HGB Conc 31.6 g/dL (31.6-35.5); Mean Corpuscular Hemoglobin 29.7 pg (28.0-33.3); Mean Corpuscular Volume 94.1 fL (83.0-100.0); Monocytes # 0.3 K/mcL (0.0-1.3); Monocytes % 7.4 %; Neutrophils # 2.3 K/mcL (1.6-8.9); Platelet Count 163 K/mcL (140-400); Red Blood Count 4.24 M/mcL (3.82-4.97); Red Cell Distribution Width 14.8 % (11.5-14.5); Segmented Neutrophils % 67.9 %
[2016-11-10 14:03] LABS: Potassium 4.6 mEq/L (3.5-4.5)
[2016-11-10] MEDS ORDERED: Aspirin 81 MG TAB.CHEW PO STA (14:26)
[2016-11-10] MEDS ORDERED: Ondansetron 4 MG/2 ML VIAL IVP ONE (15:50)
[2016-11-10] MEDS ORDERED: Levofloxacin 750 MG/150 ML 750 MG/150 ML BAG IVPB ONE (17:30)
--- NOTE | 2016-11-10 17:33 | Emergency Department Note ---
Disposition Clinical Impression: Community acquired pneumonia, Vomiting Disposition: Admitted As Inpatient Condition: Fair Referrals: Edgar Nguyen Jr, MD [Primary Care Provider] - Forms: ED Satisfaction Letter Nausea/Vomiting/Diarrhea HPI - General Chief complaint: ED Nausea/Vomiting/Diarrhea Stated complaint: "aquilino,n/v" Source: EMS Limitations: no limitations Nursing Notes Reviewed: Yes Vital Signs Reviewed: Yes - History of Present Illness HPI Narrative: Is a 76-year-old female states she has not felt well for 5 days. She has had some cough nausea vomiting some intermittent abdominal pain. She is here in the ER yesterday discharged home. She states she cannot keep anything down she feels worse the cough has worsened and generally does not feel well. Pt Subjective Complaint: nausea, vomiting Onset (ago): day(s) Consistency: intermittent Improves with: nothing Worsens with: nonthing - Related Data Home Medications Medication Instructions Recorded Confirmed Aspirin 81 mg PO DAILY 02/07/16 09/30/16 Clopidogrel [Plavix] 75 mg PO DAILY 02/07/16 09/30/16 Metoprolol XL (24 HR) Succ [Toprol 100 mg PO DAILY 08/21/16 09/30/16 Xl] Budesonide/Formoterol 80/4.5 1 puff IH BIDR PRN 09/30/16 09/30/16 [Symbicort 80/4.5] Ipratropium/Albuterol Neb [Duoneb] 3 ml IH Q4HR PRN 09/30/16 09/30/16 Albuterol Sulfate [Albuterol 2 puff IH Q4HR PRN 10/01/16 10/01/16 Inhaler] Furosemide [Lasix] 40 mg PO DAILY 10/01/16 10/01/16 Previous Rx's Medication Instructions Recorded Insulin Glargine,Hum.rec.anlog 25 unit SQ DAILY 30 Days 09/14/16 [Lantus Solostar] Insulin LISPRO [HumaLOG] 0 units SQ TIDAC 30 Days 09/14/16 LORazepam [Ativan] 0.5 mg PO HS PRN #7 tablet 10/05/16 Levofloxacin 750 mg PO Q48H #14 tablet 10/05/16 PredniSONE 40 mg PO DAILY #10 tablet 10/05/16 Supplies [SUPPLIES] 1 each .ROUTE ONCE #1 each 10/05/16 Ciprofloxacin [Cipro] 500 mg PO BID #14 tablet 11/09/16 Ondansetron ODT [Zofran ODT] 4 mg SL Q6HR #15 tab.rapdis 11/09/16 Promethazine [Phenergan] 25 mg RC Q6HR #20 supp.rect 11/09/16 Allergies Allergy/AdvReac Type Severity Reaction Status Date / Time acetaminophen Allergy Nausea Verified 10/01/16 13:46 [From Darvocet-N] codeine Allergy See Verified 10/01/16 13:46 Comments morphine Allergy Nausea Verified 10/01/16 13:46 propoxyphene Allergy Nausea Verified 10/01/16 13:46 [From Darvocet-N] All systems ED: reviewed and negative except as stated. Constitutional: Reports: weakness Cardiovascular: Reports: dyspnea on exertion Respiratory: Reports: cough Gastrointestinal: Reports: nausea, vomiting Past Medical History - Past Medical History Source: patient, old records reviewed, nursing notes reviewed Medical history: Reports: arthritis, diabetes Surgical history: Reports: appendectomy, cholecystectomy, coronary bypass (CABG) , heart valve replacement (mitral valve - porcine), hysterectomy, knee replacement, other, pacemaker Psychiatric history: Reports: anxiety, depression - Social History Smoking Status: Never smoker Smokeless Tobacco Status: No Alcohol use: Reports: none Drug use: Reports: none Physical Exam - General Limitations: no limitations General appearance: alert - Head Head exam: atraumatic, normocephalic, normal inspection - Eye Eye exam: Present: normal appearance, PERRL, EOMI - Expanded Eye Exam Pupils: Left: reactive - ENT ENT exam: normal exam, normal oropharynx, mucous membranes moist - Expanded ENT Exam External ear exam: Present: normal external inspection Mouth exam: Present: normal external inspection Teeth exam: Present: normal inspection Throat exam: Present: normal inspection - Neck Neck exam: Present: normal inspection, full ROM, trachea midline - Chest Chest inspection: Present: normal inspection, symmetric chest wall rise - Respiratory Respiratory exam: Present: normal lung sounds bilaterally - Cardiovascular Cardiovascular exam: Present: regular rate, normal rhythm, normal heart sounds - Abdominal Exam Abdominal exam: Present: soft, Non-Tender. Absent: tenderness, distention, guarding, rebound, rigidity - Extremities Exam Extremities exam: Present: normal inspection, full ROM. Absent: tenderness, pedal edema - Expanded Upper Extremity Exam Shoulder exam: Present: normal inspection, full ROM Arm exam: Present: normal inspection, full ROM Elbow exam: Present: normal inspection, full ROM Forearm/Wrist exam: Present: normal inspection, full ROM Hand exam: Present: normal inspection, full ROM Vascular exam: Normal: capillary refill, radial pulse - Expanded Lower Extremity Exam Hip/Pelvis exam: Present: normal inspection, full ROM Upper leg exam: Present: normal inspection, full ROM Knee exam: Present: normal inspection, full ROM Lower leg exam: Present: normal inspection, full ROM Ankle exam: Present: normal inspection, full ROM Foot/toe exam: Present: normal inspection, full ROM Neurovascular/Tendon exam: Absent: motor deficit, sensory deficit, tendon deficit - Back Exam Back exam: Present: normal inspection, full ROM. Absent: tenderness - Neurological Exam Neurological exam: Present: alert, oriented X3 - Expanded Neurological Exam Patient oriented to: Present: person, place, time Coma Scale Eye Opening: Spontaneous Coma Scale Motor Response: Obeys Commands Coma Scale Verbal Response: Oriented Coma Scale Total: 15 - Psychiatric Psychiatric exam: Present: normal affect, normal mood - Skin Skin exam: Present: warm, dry, intact, normal color Course Vital Signs Temperature 99.6 F 11/10/16 13:23 Pulse Rate 74 11/10/16 13:23 Respiratory Rate 20 11/10/16 13:23 Blood Pressure 112/61 11/10/16 13:23 O2 Sat by Pulse Oximetry 95 11/10/16 13:23 Temperature 99.6 F 11/10/16 13:23 Pulse Rate 71 11/10/16 16:00 Respiratory Rate 20 11/10/16 16:00 Blood Pressure 113/60 11/10/16 16:00 O2 Sat by Pulse Oximetry 95 11/10/16 16:00 Oxygen Delivery Oxygen Delivery Nasal Cannula Nausea/Vomiting/Diarrhea - Differential Diagnosis Likely: traveler's diarrhea, drug-induced nausea and vomitting, dehydration - Medical Records Medical records reviewed: Yes I reviewed the patient's medical records. - Lab Data Lab results reviewed: Yes I reviewed the patient's lab results. Result diagrams: 11/10/16 13:30 11/10/16 13:30 Lab Results 11/10/16 11/10/16 11/10/16 Range/Units 13:30 13:30 13:30 WBC 3.4 L (4.3-11.1) K/mcL RBC 4.24 (3.82-4.97) M/mcL Hgb 12.6 (11.5-15.4) g/dL Hct 39.9 (35.3-44.9) % MCV 94.1 (83.0-100.0) fL MCH 29.7 (28.0-33.3) pg MCHC 31.6 (31.6-35.5) g/dL RDW 14.8 H (11.5-14.5) % Plt Count 163 (140-400) K/mcL MPV 10.0 (9.4-12.4) fL Immature Gran % 0.3 (0-4) % Seg Neutrophils % 67.9 % Lymphocytes % 23.2 % Monocytes % 7.4 % Eosinophils % 0.9 % Basophils % 0.3 % Neutrophils # 2.3 (1.6-8.9) K/mcL Lymphocytes # 0.8 (0.6-4.6) K/mcL Monocytes # 0.3 (0.0-1.3) K/mcL Eosinophils # 0.0 (0.0-0.6) K/mcL Basophils # 0.0 (0.0-0.2) K/mcL Sodium 136 (136-145) mEq/L Potassium 4.6 H (3.5-4.5) mEq/L Chloride 103 (98-109) mEq/L Carbon Dioxide 24 (19-29) mEq/L BUN 15 (7-20) mg/dL Creatinine 1.20 H (0.57-1.11) mg/dL Est GFR ( Amer) 53 L (> 60) Est GFR (Non-Af Amer) 44 L (> 60) BUN/Creatinine Ratio 13 (6-26) Glucose 102 H (70-99) mg/dL Calculated Osmolality 283 (280-300) Calcium 9.0 (8.6-10.8) mg/dL Troponin I 0.12 H* (0-0.03) ng/mL B-Natriuretic Peptide (0-100) pg/mL 11/10/16 11/10/16 Range/Units 13:30 16:00 WBC (4.3-11.1) K/mcL RBC (3.82-4.97) M/mcL Hgb (11.5-15.4) g/dL Hct (35.3-44.9) % MCV (83.0-100.0) fL MCH (28.0-33.3) pg MCHC (31.6-35.5) g/dL RDW (11.5-14.5) % Plt Count (140-400) K/mcL MPV (9.4-12.4) fL Immature Gran % (0-4) % Seg Neutrophils % % Lymphocytes % % Monocytes % % Eosinophils % % Basophils % % Neutrophils # (1.6-8.9) K/mcL Lymphocytes # (0.6-4.6) K/mcL Monocytes # (0.0-1.3) K/mcL Eosinophils # (0.0-0.6) K/mcL Basophils # (0.0-0.2) K/mcL Sodium (136-145) mEq/L Potassium (3.5-4.5) mEq/L Chloride (98-109) mEq/L Carbon Dioxide (19-29) mEq/L BUN (7-20) mg/dL Creatinine (0.57-1.11) mg/dL Est GFR ( Amer) (> 60) Est GFR (Non-Af Amer) (> 60) BUN/Creatinine Ratio (6-26) Glucose (70-99) mg/dL Calculated Osmolality (280-300) Calcium (8.6-10.8) mg/dL Troponin I 0.11 H* (0-0.03) ng/mL B-Natriuretic Peptide 56 (0-100) pg/mL - Radiology Data Radiology results reviewed: Yes I reviewed the patient's radiology results.
[2016-11-10] MEDS ORDERED: Acetaminophen 325 MG TABLET PO PRN (20:33)
[2016-11-10] MEDS ORDERED: Naloxone 0.4 MG/ML INJ IVP PRN (20:33)
[2016-11-10] MEDS ORDERED: D5% in Water 1,000 ML IV PRN (20:50)
[2016-11-10] MEDS ORDERED: Dextrose Gel 15 GM PO PRN ×2 (20:50)
[2016-11-10] MEDS ORDERED: *HR* Dextrose 50 % in Water (Syg) 50 ML SYRINGE IVP PRN (20:50)
[2016-11-10] MEDS ORDERED: Albuterol 2.5 MG/3 ML NEBULIZER IH PRN (20:53)
[2016-11-10] MEDS ORDERED: Insulin LISPRO 300 UNITS/3 ML VIAL SQ SCH (21:00)
[2016-11-10] MEDS ORDERED: Vancomycin 1,500 MG in D5% in Water 250 ML IVPB SCH (21:00)
--- NOTE | 2016-11-10 21:00 | Internal Med History&Physical ---
Date of Encounter: 11/10/16 Time of Encounter: 20:56 Assessment and Plan (1) HCAP (healthcare-associated pneumonia) Current visit: Yes Status: Acute Patient with worsening cough, shortness of breath, nausea, poor appetite, weakness last week. Chest x-ray showed developing airspace disease in left lung base with small left pleural effusion. CT of the abdomen and pelvis also confirmed an interval development of peripheral consolidation in the left lower lobe as well as a small chronic loculated right pleural effusion. Patient with hospitalization last month as well as visits to the emergency room yesterday morning for similar symptoms. Treat as healthcare associated pneumonia. Spectrum antibiotics with Levaquin, vancomycin, Zosyn DuoNeb treatments 4 times a day Albuterol nebulizer every 2 when necessary Titrate oxygen to maintain oxygen saturation greater than 92% sputum culture 40mg IVP solu-medrol for wheezing (2) Abdominal aortic aneurysm (AAA) 3.0 cm to 5.0 cm in diameter in female Current visit: Yes Status: Acute Abdominal CT revealed infrarenal abdominal fusiform aortic aneurysm measuring 4.9 x 4.3 increased in size from comparison CT from 02/01/2015 which showed the aneurysm measuring 3.9 cm. Patient was unaware of aneurysm, she reports her father had a AAA. Will give mucomyst and hydrate with 0.9 NS at 75mL/hr in anticipation of CT with contrast. Consult to Vascular surgery, will need to be called tomorrow morning. (3) Nausea Current visit: Yes Status: Acute Patient complaining of nausea and poor appetite for the last week. Nausea coincides with onset of respiratory symptoms with productive cough, shortness of breath, fever, and we suspect nausea is related to her infection and pneumonia. Patient does have AAA, will get vascular surgery consult and plan for CT with contrast. PRN Zofran Clear liquid Diet, advance as tolerated (4) Type 2 diabetes mellitus Current visit: No Status: Chronic Hgb A1c of 9.9% on 09/14/16 indicating patient not well controlled. diabetic diet check blood sugar Q4hrs as patient on steroids Continue home dose of basal insulin 25u Levemir daily Medium dose sliding scale correction dose Q4hrs as patient is on steroids. hypoglycemic protocol. Qualifiers: Diabetes mellitus complication status: with kidney complications Diabetes mellitus complication detail: with chronic kidney disease Diabetes mellitus long term care administrator insulin use: with senior living use Chronic kidney disease stage: stage 3 (moderate) Qualified Code(s): E11.22 - Type 2 diabetes mellitus with diabetic chronic kidney disease; N18.3 - Chronic kidney disease, stage 3 ( moderate); Z79.4 - intermodal customer service (current) use of insulin (5) Pleural effusion Current visit: No Status: Acute Patient with chronic small loculated pleural effusion in right lung base. She had pulmonary and cardiovascular surgery consults on last hospitalization in August and in September. At that time, plan was to conservatively treat with antibiotics, as size of effusion is small. Patient being treated with broad spectrum antibiotics with Vanc, Zosyn and levaquin. (6) HTN (hypertension) Current visit: No Status: Chronic continue home doses of metoprolol and lasix. Qualifiers: Hypertension type: essential hypertension Qualified Code(s): I10 - Essential (primary) hypertension (7) DVT prophylaxis Current visit: No Status: Acute Up to chair BID anti-embolic stockings Heparin 5,000u SQ TID Internal Medicine - H&P: HPI Chief complaint: cough, nausea, malaise Admitted From: Emergency Dept Plans for Post Hospital Care: Home History of present illness: Ms. Florez is a 76 year old female with diabetes, coronary artery disease status post CABG, mitral valve repair, pacemaker, abdominal aortic aneurysm with multiple episodes of pneumonia over the last 6 months presented to the emergency department today with cough nausea and poor appetite malaise. She reports her symptoms have been going on for 1 week cough is productive of thick smallwood sputum, she has nausea, poor appetite, and weakness. She reports fever with temperatures of 100.1 and 100.8 at home. She reports pain in her chest with the cough. She denies any headache, dizziness, lightheadedness, palpitations, abdominal pain, diarrhea. Evaluation in the emergency department was significant for elevated troponin of 0.12 came down to 0.11 on recheck. Chest x-ray showed developing airspace disease in the left lung base with associated small left pleural effusion. Abdominal CT showed small chronic loculated right pleural effusion, interval development of pleural consolidation in left lower lobe, stable duodenal diverticulum, increased size of abdominal aortic aneurysm measuring 4.9 X 4.3 centimeters. She was given antiemetic, Levaquin and emergency department. Exam patient is alert and oriented, in no acute distress, lungs have diffuse wheezes. Heart has regular rate and rhythm. Abdomen has mild left upper quadrant tenderness. Past Med Surg Social Fam HX - Past Medical History Medical history: aortic aneurysm (abdominal), arthritis, coronary artery disease , diabetes, myocardial infarction Psychiatric history: anxiety, depression - Past Surgical History Surgical History: appendectomy, cholecystectomy, colectomy (partial colectomy due to endometriosis ), coronary bypass (CABG), heart valve replacement (mitral valve - porcine), hysterectomy, knee replacement, other, pacemaker - Social History Smoking Status: Never smoker Smokeless Tobacco Status: No Alcohol use: none Drug use: none - Family History Father Living Status: Hx Family Cardiac Disorders: Yes (AAA, PE) Mother Living Status: Hx Family Cardiac Disorders: Yes Hx Family Respiratory Disorders: Yes (COPD) Hx Family Cancer: Yes (Colon.) Hx Family GI Disorders: No Hx Family Endocrine Disorder: No Hx Family Neuromuscular Disorders: No Hx Family Neurologic Disorders: No Hx Family HEENT Disorders: No Hx Family Autoimmune Disorders: No Internal Medicine - H&P: Meds Aspirin 81 mg PO DAILY 02/07/16 [History] Clopidogrel [Plavix] 75 mg PO DAILY 02/07/16 [History] Metoprolol XL (24 HR) Succ [Toprol Xl] 100 mg PO DAILY 08/21/16 [History] Insulin Glargine,Hum.rec.anlog [Lantus Solostar] 25 unit SQ DAILY 30 Days [Rx] Insulin LISPRO [HumaLOG] 0 units SQ TIDAC 30 Days 09/14/16 [Rx] Albuterol Sulfate [Albuterol Inhaler] 2 puff IH Q4HR PRN 10/01/16 [History] Furosemide [Lasix] 40 mg PO DAILY 10/01/16 [History] Ondansetron ODT [Zofran ODT] 4 mg SL Q6HR #15 tab.rapdis 11/09/16 [Rx] Promethazine [Phenergan] 25 mg RC Q6HR #20 supp.rect 11/09/16 [Rx] Allergies acetaminophen [From Darvocet-N] Allergy (Verified 10/01/16 13:46) Nausea codeine Allergy (Verified 10/01/16 13:46) See Comments "GOES INTO COMA" morphine Allergy (Verified 10/01/16 13:46) Nausea propoxyphene [From Darvocet-N] Allergy (Verified 10/01/16 13:46) Nausea All Systems PM: A 10-system review of systems was performed and is negative for pertinent findings except as documented above in the HPI. - Constitutional Constitutional: anorexia, fever(s), malaise, weakness, no chills, no night sweats - EENT Eyes: no change in vision, no discharge, no pain, no photophobia Ears: no ear discharge, no ear pain, no tinnitus Nose, mouth and throat: no dysphagia, no nasal discharge, no neck pain, no sore throat - Cardiovascular Cardiovascular ROS IM: dyspnea, dyspnea on exertion, no chest pain, no diaphoresis, no lightheadedness, no palpitations, no syncope - Respiratory Respiratory: cough, dyspnea, dyspnea on exertion, wheezing, excessive phlegm production, pain with cough - Gastrointestinal Gastrointestinal: abdominal pain, nausea, no diarrhea, no hematemesis, no hematochezia, no melena, no vomiting - Genitourinary Genitourinary: no change in urinary stream, no dysuria, no flank pain, no hematuria - Musculoskeletal Musculoskeletal ROS IM: no numbness, no tingling - Integumentary Integumentary IM: no rash, no unusual bruising - Neurological Neurological ROS: no confusion, no convulsions, no focal weakness, no numbness, no tingling, no tremor(s) - Hematologic/Lymphatic Hematologic/Lymphatic: no easy bruising - Constitutional Vitals: Temp Pulse Resp BP Pulse Ox 99.0 F 79 18 115/68 95 11/10/16 20:27 11/10/16 20:27 11/10/16 20:27 11/10/16 20:27 11/10/16 20:27 General appearance: Present: A&O X 3, morbidly obese, no acute distress - Head Head exam: Present: atraumatic, normocephalic - Eye Eye exam: Present: PERRL, conjuntiva pink, sclera anicteric Pupils: Present: PERRL - Neck Neck exam general surgery: Present: supple, trachea midline. Absent: lymphadenopathy - Respiratory Respiratory exam: Present: wheezes. Absent: accessory muscle use, rales, rhonchi - Cardiovascular Cardiovascular exam: Present: RRR, +S1, +S2. Absent: diastolic murmur, gallop, rubs, systolic murmur - GI/Abdominal GI/Abdominal exam: Present: normal bowel sounds, soft, tenderness (mild LUQ tenderness), no peritoneal signs. Absent: distended - Extremities Exam Extremities exam: Present: warm, radial pulses palpable and symetrical. Absent : calf tenderness, cyanotic, pedal edema - Neurological Exam Neurological exam: Present: CN II-XII intact, oriented X3, no focal deficits. Absent: facial droop, speech deficit - Skin Skin exam: Present: dry, intact Internal Med - H&P Results - Labs CBC & Chem 7: 11/10/16 13:30 11/10/16 13:30 Labs: All Lab Results (24 Hours) 11/10/16 11/10/16 11/10/16 Range/Units 13:30 13:30 13:30 WBC 3.4 L (4.3-11.1) K/mcL RBC 4.24 (3.82-4.97) M/mcL Hgb 12.6 (11.5-15.4) g/dL Hct 39.9 (35.3-44.9) % MCV 94.1 (83.0-100.0) fL MCH 29.7 (28.0-33.3) pg MCHC 31.6 (31.6-35.5) g/dL RDW 14.8 H (11.5-14.5) % Plt Count 163 (140-400) K/mcL MPV 10.0 (9.4-12.4) fL Immature Gran % 0.3 (0-4) % Seg Neutrophils % 67.9 % Lymphocytes % 23.2 % Monocytes % 7.4 % Eosinophils % 0.9 % Basophils % 0.3 % Neutrophils # 2.3 (1.6-8.9) K/mcL Lymphocytes # 0.8 (0.6-4.6) K/mcL Monocytes # 0.3 (0.0-1.3) K/mcL Eosinophils # 0.0 (0.0-0.6) K/mcL Basophils # 0.0 (0.0-0.2) K/mcL Sodium 136 (136-145) mEq/L Potassium 4.6 H (3.5-4.5) mEq/L Chloride 103 (98-109) mEq/L Carbon Dioxide 24 (19-29) mEq/L BUN 15 (7-20) mg/dL Creatinine 1.20 H (0.57-1.11) mg/dL Est GFR ( Amer) 53 L (> 60) Est GFR (Non-Af Amer) 44 L (> 60) BUN/Creatinine Ratio 13 (6-26) Glucose 102 H (70-99) mg/dL Calculated Osmolality 283 (280-300) Calcium 9.0 (8.6-10.8) mg/dL Troponin I 0.12 H* (0-0.03) ng/mL B-Natriuretic Peptide (0-100) pg/mL 11/10/16 11/10/16 Range/Units 13:30 16:00 WBC (4.3-11.1) K/mcL RBC (3.82-4.97) M/mcL Hgb (11.5-15.4) g/dL Hct (35.3-44.9) % MCV (83.0-100.0) fL MCH (28.0-33.3) pg MCHC (31.6-35.5) g/dL RDW (11.5-14.5) % Plt Count (140-400) K/mcL MPV (9.4-12.4) fL Immature Gran % (0-4) % Seg Neutrophils % % Lymphocytes % % Monocytes % % Eosinophils % % Basophils % % Neutrophils # (1.6-8.9) K/mcL Lymphocytes # (0.6-4.6) K/mcL Monocytes # (0.0-1.3) K/mcL Eosinophils # (0.0-0.6) K/mcL Basophils # (0.0-0.2) K/mcL Sodium (136-145) mEq/L Potassium (3.5-4.5) mEq/L Chloride (98-109) mEq/L Carbon Dioxide (19-29) mEq/L BUN (7-20) mg/dL Creatinine (0.57-1.11) mg/dL Est GFR ( Amer) (> 60) Est GFR (Non-Af Amer) (> 60) BUN/Creatinine Ratio (6-26) Glucose (70-99) mg/dL Calculated Osmolality (280-300) Calcium (8.6-10.8) mg/dL Troponin I 0.11 H* (0-0.03) ng/mL B-Natriuretic Peptide 56 (0-100) pg/mL
[2016-11-10] MEDS: Ondansetron 4 MG/2 ML VIAL IVP PRN (21:34)
[2016-11-10] MEDS: Vancomycin 1,500 MG in D5% in Water 250 ML IVPB SCH (21:35)
[2016-11-10] MEDS ORDERED: 0.9 % Sodium Chloride 1,000 ML IVC SCH (21:45)
[2016-11-10] MEDS: *HR* Acetylcysteine 20% 600 MG/3 ML ORAL SYRINGE PO SCH (21:45)
--- NOTE | 2016-11-10 22:34 | Event Note ---
Date of Encounter: 11/10/16 Time of Encounter: 22:29 Patient seen and examined with nurse practitioner. Patient resents with 5 days of worsening shortness of breath, productive cough, fevers and increased oxygen requirements. She has been requiring 2 L of oxygen 24 7 during the past 5 days. She usually takes oxygen PRN. X-ray shows evidence of left lower lobe pneumonia. She will be started on antibiotics for HCAP given recent hospitalization one month ago. She will also get nebulizer treatments and IV steroids because of wheezing. She has been nauseous for the past 5 days. This has coincided with the onset of pneumonia. She is moving her bowels and no vomiting. Suspect that this is related to the pneumonia. However patient is having a 4.34.9 cm aneurysm in the abdominal award to this has increased approximately 1 cm in the past [address] scan was none contrasted. We will see as the patient's nausea will improve with current treatment of pneumonia. If no improvement will get a contrast CT scan of the abdomen to rule out any leak. Will start her on IV fluids and mucosal in preparation for that. Would ask vascular surgery to see the patient. Clear liquid diet. She has slight troponin elevation but denies any active chest pain. Her electrocardiogram shows no ST segment shifts. Will trend troponin. Keep patients on aspirin and beta pankaj
[2016-11-10] MEDS: Ipratropium/Albuterol Neb 3 ML IH SCH (22:42)
[2016-11-10] MEDS: MethylPREDNISolone 40 MG/ML VIAL IVP SCH (23:23)
[2016-11-10] MEDS: *HR* Heparin 5,000 UNIT/ML VIAL SQ SCH (23:23)
[2016-11-10] MEDS: Piperacillin/Tazobactam 3.375 GM in D5% in Water (Mini-Bag+) 100 ML IVPB SCH (23:24)
[2016-11-10] MEDS: Insulin LISPRO 300 UNITS/3 ML VIAL SQ SCH (23:46)
[2016-11-10] MEDS ORDERED: Metoclopramide 10 MG/2 ML VIAL IVP ONE (23:54)
[2016-11-11] MEDS: Ipratropium/Albuterol Neb 3 ML IH SCH ×4 (03:52→21:34)
[2016-11-11] MEDS: Insulin LISPRO 300 UNITS/3 ML VIAL SQ SCH ×5 (04:57→21:16)
[2016-11-11] MEDS: *HR* Heparin 5,000 UNIT/ML VIAL SQ SCH ×3 (06:11→22:14)
[2016-11-11] MEDS ORDERED: *HR* Enoxaparin 40 MG/0.4 ML SYRINGE SQ SCH (07:00)
[2016-11-11] MEDS ORDERED: Insulin LISPRO 300 UNITS/3 ML VIAL SQ SCH (07:30)
[2016-11-11 08:06] LABS: Basophils % 0.4 %; Hematocrit 38.2 % (35.3-44.9); Immature Granulocytes % 0.4 % (0-4); Lymphocytes # 0.5 K/mcL (0.6-4.6); Lymphocytes % 19.9 %; Mean Corpuscular HGB Conc 31.4 g/dL (31.6-35.5); Mean Corpuscular Hemoglobin 29.6 pg (28.0-33.3); Mean Corpuscular Volume 94.3 fL (83.0-100.0); Mean Platelet Volume 10.1 fL (9.4-12.4); Monocytes # 0.1 K/mcL (0.0-1.3); Monocytes % 3.9 %; Neutrophils # 1.9 K/mcL (1.6-8.9); Platelet Count 148 K/mcL (140-400); Red Blood Count 4.05 M/mcL (3.82-4.97); Red Cell Distribution Width 14.6 % (11.5-14.5); Segmented Neutrophils % 75.4 %
[2016-11-11 08:12] LABS: Potassium 4.9 mEq/L (3.5-4.5)
[2016-11-11] MEDS: Piperacillin/Tazobactam 3.375 GM in D5% in Water (Mini-Bag+) 100 ML IVPB SCH ×2 (08:46→18:05)
[2016-11-11] MEDS: Insulin DETEMIR 100 UNIT/ML X5UNITS SQ SCH (08:50)
[2016-11-11] MEDS: MethylPREDNISolone 40 MG/ML VIAL IVP SCH ×2 (08:51→18:09)
[2016-11-11] MEDS: Furosemide 40 MG TABLET PO SCH (08:52)
[2016-11-11] MEDS: Metoprolol XL (24 HR) Succ 50 MG TAB.ER.24H PO SCH (08:52)
[2016-11-11] MEDS: *HR* Acetylcysteine 20% 600 MG/3 ML ORAL SYRINGE PO SCH ×2 (11:57→21:15)
--- NOTE | 2016-11-11 13:08 | Internal Med Progress Note ---
Date of Encounter: 11/11/16 Time of Encounter: 13:08 - Assessment and plan (1) HCAP (healthcare-associated pneumonia) Current Visit: Yes Status: Acute Assessment and plan: LLL pneumonia, organism unknown Afebrile, no leukocytosis Continue current therapy Monitor Vanco trough Plan to taper steroids (2) Elevated troponin Current Visit: Yes Status: Acute Assessment and plan: NO chest pain EKG non-ischemic possibly due to renal disease downtrending (3) Abdominal aortic aneurysm (AAA) 3.0 cm to 5.0 cm in diameter in female Current Visit: Yes Status: Chronic Assessment and plan: Abdominal CT revealed infrarenal abdominal fusiform aortic aneurysm measuring 4.9 x 4.3 increased in size from comparison CT from 02/01/2015 which showed the aneurysm measuring 3.9 cm. Patient is unaware she had AAA She is asymptomatic at this time She has a history of CKD III Hb is stable, abdomen is benign Recommendation for repair is AAA infrarenal >5.5cm in a patient without significant co-morbidities, or increase >1cm in a year Patient does not currently meet criteria for repair Vascular was consulted by admitting team, await recs Will monitor closely for now (4) Nausea Current Visit: Yes Status: Resolved Assessment and plan: Resolved (5) Chronic restrictive lung disease Current Visit: Yes Status: Chronic Assessment and plan: Chronic, stable, continue meds (6) CAD (coronary artery disease) Current Visit: Yes Status: Chronic Assessment and plan: Stable Qualifiers: Coronary Disease-Associated Artery/Lesion type: bypass graft [place] vs. transplanted heart: in[place] heart Associated angina: without angina Qualified Code(s): I25.810 - Atherosclerosis of coronary artery bypass graft(s) without angina pectoris (7) CKD (chronic kidney disease) stage 3, GFR 30-59 ml/min Current Visit: Yes Status: Chronic Assessment and plan: CR stable (8) HTN (hypertension) Current Visit: Yes Status: Chronic Assessment and plan: Controlled Qualifiers: Hypertension type: essential hypertension Qualified Code(s): I10 - Essential (primary) hypertension (9) BAILEY on CPAP Current Visit: Yes Status: Chronic Assessment and plan: BiPAP at night (10) Type 2 diabetes mellitus Current Visit: Yes Status: Chronic Assessment and plan: Continue insulin Qualifiers: Diabetes mellitus complication status: with kidney complications Diabetes mellitus complication detail: with chronic kidney disease Diabetes mellitus detention insulin use: with joint terminal attack controller use Chronic kidney disease stage: stage 3 (moderate) Qualified Code(s): E11.22 - Type 2 diabetes mellitus with diabetic chronic kidney disease; N18.3 - Chronic kidney disease, stage 3 ( moderate); Z79.4 - detention (current) use of insulin - Subjective Interval history: 76 Y/O F with PMH of Type II DM, HTN, AAA, Obesity, CKD III, CAD s/p CABG, MVR, PCM, DM She is admitted to observation and being managed for HCAP, R lung pleural effusion She is seen at bedside She reports having had nausea most of the night but that her nausea has improved She is still coughing, but minimal sputum production - Constitutional Vitals: Temp Pulse Resp BP Pulse Ox 98.1 F 66 20 107/64 92 L 11/11/16 11:26 11/11/16 11:26 11/11/16 11:27 11/11/16 11:26 11/11/16 11:27 General appearance: Present: A&O X 3, morbidly obese, no acute distress, obese - Head Head exam: Present: atraumatic, normocephalic - Eye Eye exam: Present: PERRL, conjuntiva pink, sclera anicteric Pupils: Present: PERRL - Neck Neck exam general surgery: Present: supple, trachea midline. Absent: lymphadenopathy - Respiratory Respiratory exam: Present: rhonchi (Left lung base). Absent: accessory muscle use, rales, wheezes - Cardiovascular Cardiovascular exam: Present: RRR, +S1, +S2. Absent: diastolic murmur, gallop, rubs, systolic murmur - GI/Abdominal GI/Abdominal exam: Present: normal bowel sounds, soft, no peritoneal signs. Absent: distended, tenderness - Extremities Exam Extremities exam: Present: warm, radial pulses palpable and symetrical. Absent : calf tenderness, cyanotic, pedal edema - Neurological Exam Neurological exam: Present: CN II-XII intact, oriented X3, no focal deficits. Absent: pronater drift, facial droop, speech deficit - Skin Skin exam: Present: dry Internal Medicine: Result - Labs CBC & Chem 7: 11/11/16 07:24 11/11/16 07:24 Labs: Short CBC 11/11/16 Range/Units 07:24 WBC 2.6 L (4.3-11.1) K/mcL Hgb 12.0 (11.5-15.4) g/dL Hct 38.2 (35.3-44.9) % Plt Count 148 (140-400) K/mcL Neutrophils # 1.9 (1.6-8.9) K/mcL BMP 11/11/16 07:24 Sodium 138 Potassium 4.9 H Chloride 105 Carbon Dioxide 23 BUN 15 Creatinine 1.32 H Glucose 199 H Calcium 9.0 Cardiac Enzymes 11/10/16 11/11/16 Range/Units 22:04 07:24 Troponin I 0.07 H* 0.04 H* (0-0.03) ng/mL Consult Discharge Plan - Plan Referrals: Edgar Nguyen Jr, MD [Primary Care Provider] -
--- NOTE | 2016-11-11 14:14 | Electrocardiograph Report ---
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
--- NOTE | 2016-11-11 17:53 | Vascular/Endovasc Consult Note ---
Date of Encounter: 11/11/16 Time of Encounter: 17:51 Assessment and Plan (1) AAA (abdominal aortic aneurysm) Current Visit: Yes Status: Acute Asymptomatic 4.9 cm abdominal aortic aneurysm. I reviewed with the patient and her nephew the natural history of abdominal aortic aneurysms. I emphasized the potential family lineage and genetic linkage because of her father having an aneurysm. I strongly advise other family members to be tested by outpatient abdominal ultrasound scanning. Due to her greater than 1 month long history of recurrent pulmonary problems the patient is not a candidate for any surgical intervention at this time. I recommended that the patient follow-up with me in 6 months with a repeat CT angiogram and I would anticipate that if she is medically stable we will then proceed with surgery at that time. I explained that we would offer endovascular abdominal aortic aneurysm repair and that she is not an appropriate candidate for open aortic surgical repair. Qualifiers: Presence of rupture: without rupture Qualified Code(s): I71.4 - Abdominal aortic aneurysm, without rupture (2) HCAP (healthcare-associated pneumonia) Current Visit: Yes Status: Acute The patient is currently being treated for HCAP - History of Present Illness Consult date: 11/11/16 Requesting physician: Yunier Banks Consult reason: Abdominal aortic aneurysm Chief complaint: Respiratory symptoms History of present illness: Ms. Florez is a 76 year old female Who is admitted for a variety of symptoms and recurrent pulmonary concerns. As part of her evaluation a CT scan was obtained. This demonstrated a 4.9 cm abdominal aortic aneurysm. Patient has no knowledge of the aneurysm. She has not had any previous testing. She is not being followed by another physician for this concern. Of note the patient's father had a symptomatic abdominal aortic aneurysm. He was treated with emergency surgery and survived the operation but in the postoperative period from a pulmonary embolism. The patient has significant pulmonary concerns. She has COPD and has been on home oxygen for the last 2-3 years. Her ambulation is limited by shortness of breath which he estimates to be at less than 1 block. In addition the patient has significant cardiac history. She is status post open heart bypass grafting in 2007 at [facility]. She then had emergency mitral valve replacement in 2008 at the [facility]. She is also status post pacemaker placement in 2007. Past Med Surg Social Fam HX - Past Medical History Medical history: aortic aneurysm (abdominal), arthritis, coronary artery disease , diabetes, myocardial infarction Psychiatric history: anxiety, depression - Past Surgical History Surgical History: appendectomy, cholecystectomy, colectomy (partial colectomy due to endometriosis ), coronary bypass (CABG), heart valve replacement (mitral valve - porcine), hysterectomy, knee replacement, other, pacemaker - Social History Smoking Status: Never smoker Smokeless Tobacco Status: No Alcohol use: none Drug use: none - Family History Father Living Status: Hx Family Cardiac Disorders: Yes (AAA, PE) Mother Living Status: Hx Family Cardiac Disorders: Yes Hx Family Respiratory Disorders: Yes (COPD) Hx Family Cancer: Yes (Colon.) Hx Family GI Disorders: No Hx Family Endocrine Disorder: No Hx Family Neuromuscular Disorders: No Hx Family Neurologic Disorders: No Hx Family HEENT Disorders: No Hx Family Autoimmune Disorders: No Medications and Allergies Aspirin 81 mg PO DAILY 02/07/16 [History] Clopidogrel [Plavix] 75 mg PO DAILY 02/07/16 [History] Metoprolol XL (24 HR) Succ [Toprol Xl] 100 mg PO DAILY 08/21/16 [History] Insulin Glargine,Hum.rec.anlog [Lantus Solostar] 25 unit SQ DAILY 30 Days [Rx] Albuterol Sulfate [Albuterol Inhaler] 2 puff IH Q4HR PRN 10/01/16 [History] Furosemide [Lasix] 40 mg PO DAILY 10/01/16 [History] Budesonide/Formoterol 80/4.5 [Symbicort 80/4.5] 2 puff IH BID 11/11/16 [History ] Insulin LISPRO [HumaLOG] 2 - 12 units SQ TIDAC 11/11/16 [History] Ipratropium/Albuterol Neb [Duoneb] 3 ml IH Q6HR 11/11/16 [History] Allergies codeine Allergy (Verified 10/01/16 13:46) See Comments "GOES INTO COMA" acetaminophen [From Darvocet-N] Adverse Reaction (Verified 11/11/16 14:38) Nausea morphine Adverse Reaction (Verified 11/11/16 14:38) Nausea propoxyphene [From Darvocet-N] Adverse Reaction (Verified 11/11/16 14:38) Nausea All Systems Review: A 10-system review of systems was performed and is negative for pertinent findings except as documented above in the HPI. Exam Vital Signs, Last 4 Hours Temp Pulse Resp BP Pulse Ox 11/11/16 16:24 20 98 11/11/16 15:24 97.9 F 78 16 118/63 93 L General: Present: Conversant, No Apparent Distress, Well developed, Well nourished, Other (Obese elderly white female) HEENT: Present: Atraumatic, Normocephaly. Absent: Trachea midline Neck: Absent: JVD, Left Carotid bruit, Right Carotid bruit, Midline deformity, Tracheal deviation Cardiac: Present: Reg Rate and Rhythm, Normal S1 and S2 Lungs: Present: Normal Breath Sounds, No Wheeze, Rales, Rhonchi Neuro: Present: Alert and responsive, No focal deficits noted Abdomen: Present: Soft, Non-tender, Other (No abdominal bruits). Absent: Hepatosplenomegaly, Masses Vascular: Present: Normal capillary refill, Pulse, normal, Other (No findings consistent with popliteal artery aneurysms) Skin: Present: No rashes noted on visualized skin Musculoskeletal: Present: No Chest Wall Tenderness Consult Discharge Plan - Plan Referrals: Edgar Nguyen Jr, MD [Primary Care Provider] - Michael Guzman MD [Partnered Physician] - (Patient should be scheduled for a six-month follow-up with Dr. Guzman. The patient should have a repeat CT angiogram of the abdomen and pelvis prior to her visit with Dr. Guzman)
[2016-11-11] MEDS: Vancomycin 1,500 MG in D5% in Water 250 ML IVPB SCH (22:11)
[2016-11-12] MEDS: Insulin LISPRO 300 UNITS/3 ML VIAL SQ SCH ×6 (00:45→20:29)
[2016-11-12] MEDS: MethylPREDNISolone 40 MG/ML VIAL IVP SCH (01:30)
[2016-11-12] MEDS: Piperacillin/Tazobactam 3.375 GM in D5% in Water (Mini-Bag+) 100 ML IVPB SCH ×3 (01:33→16:48)
[2016-11-12] MEDS: Ondansetron 4 MG/2 ML VIAL IVP PRN (01:34)
[2016-11-12] MEDS: Ipratropium/Albuterol Neb 3 ML IH SCH ×4 (04:04→22:44)
[2016-11-12 05:25] LABS: Basophils % 0.3 %; Hematocrit 37.2 % (35.3-44.9); Hemoglobin 11.9 g/dL (11.5-15.4); Immature Granulocytes % 0.3 % (0-4); Lymphocytes # 0.4 K/mcL (0.6-4.6); Lymphocytes % 12.5 %; Mean Corpuscular Hemoglobin 29.8 pg (28.0-33.3); Mean Platelet Volume 10.5 fL (9.4-12.4); Monocytes # 0.3 K/mcL (0.0-1.3); Monocytes % 8.2 %; Neutrophils # 2.8 K/mcL (1.6-8.9); Platelet Count 144 K/mcL (140-400); Red Cell Distribution Width 14.4 % (11.5-14.5); Segmented Neutrophils % 78.7 %
[2016-11-12 05:37] LABS: Calcium 8.9 mg/dL (8.6-10.8); Potassium 3.8 mEq/L (3.5-4.5)
[2016-11-12] MEDS: *HR* Heparin 5,000 UNIT/ML VIAL SQ SCH ×3 (06:13→22:56)
[2016-11-12] MEDS: predniSONE 20 MG TABLET PO SCH (08:27)
[2016-11-12] MEDS: Metoprolol XL (24 HR) Succ 50 MG TAB.ER.24H PO SCH (08:27)
[2016-11-12] MEDS: Furosemide 40 MG TABLET PO SCH (08:28)
[2016-11-12] MEDS: Insulin DETEMIR 100 UNIT/ML X5UNITS SQ SCH (10:36)
--- NOTE | 2016-11-12 12:26 | Internal Med Progress Note ---
Date of Encounter: 11/12/16 Time of Encounter: 11:30 - Assessment and plan (1) HCAP (healthcare-associated pneumonia) Current Visit: Yes Status: Acute Assessment and plan: LLL pneumonia, organism unknown Afebrile, no leukocytosis Continue current therapy Monitor Vanco trough Change solumedrol to po prednisone Continue O2 therapy (2) Elevated troponin Current Visit: Yes Status: Acute Assessment and plan: NO chest pain EKG non-ischemic possibly due to renal disease downtrending (3) Abdominal aortic aneurysm (AAA) 3.0 cm to 5.0 cm in diameter in female Current Visit: Yes Status: Chronic Assessment and plan: Abdominal CT revealed infrarenal abdominal fusiform aortic aneurysm measuring 4.9 x 4.3 increased in size from comparison CT from 02/01/2015 which showed the aneurysm measuring 3.9 cm. Patient is unaware she had AAA She is asymptomatic at this time She has a history of CKD III Hb is stable, abdomen is benign Recommendation for repair is AAA infrarenal >5.5cm in a patient without significant co-morbidities, or increase >1cm in a year Patient does not currently meet criteria for repair Vascular recommendation noted, appreciated Will monitor closely for now (4) Nausea Current Visit: Yes Status: Resolved Assessment and plan: Resolved (5) Chronic restrictive lung disease Current Visit: Yes Status: Chronic Assessment and plan: Chronic, stable, continue meds (6) Acute and chronic respiratory failure Current Visit: Yes Status: Acute Assessment and plan: Secondary to HCAP Patient on home O2 as needed due to restrictive lung disease Continue O2 supplements Qualifiers: Respiratory failure complication: hypoxia Qualified Code(s): J96.21 - Acute and chronic respiratory failure with hypoxia (7) CAD (coronary artery disease) Current Visit: Yes Status: Chronic Assessment and plan: Stable Qualifiers: Coronary Disease-Associated Artery/Lesion type: bypass graft [place] vs. transplanted heart: [place] heart Associated angina: without angina Qualified Code(s): I25.810 - Atherosclerosis of coronary artery bypass graft(s) without angina pectoris (8) CKD (chronic kidney disease) stage 3, GFR 30-59 ml/min Current Visit: Yes Status: Chronic Assessment and plan: CR stable (9) HTN (hypertension) Current Visit: Yes Status: Chronic Assessment and plan: Controlled Qualifiers: Hypertension type: essential hypertension Qualified Code(s): I10 - Essential (primary) hypertension (10) BAILEY on CPAP Current Visit: Yes Status: Chronic Assessment and plan: BiPAP at night (11) Type 2 diabetes mellitus Current Visit: Yes Status: Chronic Assessment and plan: Continue insulin Qualifiers: Diabetes mellitus complication status: with kidney complications Diabetes mellitus complication detail: with chronic kidney disease Diabetes mellitus nursing home insulin use: with terminal worker use Chronic kidney disease stage: stage 3 (moderate) Qualified Code(s): E11.22 - Type 2 diabetes mellitus with diabetic chronic kidney disease; N18.3 - Chronic kidney disease, stage 3 ( moderate); Z79.4 - halfway (current) use of insulin - Subjective Interval history: 76 Y/O F with PMH of Type II DM, HTN, AAA, Obesity, CKD III, CAD s/p CABG, MVR, PCM, DM She is admitted to observation and being managed for HCAP, R lung pleural effusion She reports having had nausea most of the night but that her nausea has improved She is still coughing, but minimal sputum production She is seen at bedside after physical therapy, out of breath due to exertion, denies new complains - Constitutional Vitals: Temp Pulse Resp BP Pulse Ox 97.4 F L 68 18 143/74 98 11/12/16 11:13 11/12/16 11:13 11/12/16 11:31 11/12/16 11:13 11/12/16 11:31 General appearance: Present: A&O X 3, morbidly obese, no acute distress, obese - Head Head exam: Present: atraumatic, normocephalic - Eye Eye exam: Present: PERRL, conjuntiva pink, sclera anicteric Pupils: Present: PERRL - Neck Neck exam general surgery: Present: supple, trachea midline. Absent: lymphadenopathy - Respiratory Respiratory exam: Present: rhonchi (LL base) - Cardiovascular Cardiovascular exam: Present: RRR, +S1, +S2. Absent: diastolic murmur, gallop, rubs, systolic murmur - GI/Abdominal GI/Abdominal exam: Present: normal bowel sounds, soft, no peritoneal signs. Absent: distended, tenderness - Extremities Exam Extremities exam: Present: warm, radial pulses palpable and symetrical. Absent : calf tenderness, cyanotic, pedal edema - Neurological Exam Neurological exam: Present: CN II-XII intact, oriented X3, no focal deficits. Absent: pronater drift, facial droop, speech deficit - Skin Skin exam: Present: dry, intact Internal Medicine: Result - Labs CBC & Chem 7: 11/12/16 04:06 11/12/16 04:06 Labs: Short CBC 11/12/16 Range/Units 04:06 WBC 3.5 L (4.3-11.1) K/mcL Hgb 11.9 (11.5-15.4) g/dL Hct 37.2 (35.3-44.9) % Plt Count 144 (140-400) K/mcL Neutrophils # 2.8 (1.6-8.9) K/mcL BMP 11/12/16 04:06 Sodium 137 Potassium 3.8 D Chloride 104 Carbon Dioxide 22 BUN 23 H Creatinine 1.43 H Glucose 228 H Calcium 8.9 Consult Discharge Plan - Plan Referrals: Edgar Nguyen Jr, MD [Primary Care Provider] - 11/19/16 3:00 pm Michael Guzman MD [Partnered Physician] - (Patient should be scheduled for a six-month follow-up with Dr. Guzman. The patient should have a repeat CT angiogram of the abdomen and pelvis prior to her visit with Dr. Guzman)
--- NOTE | 2016-11-12 18:01 | Vascular/[facility] Progress Note ---
Date of Encounter: 11/12/16 Time of Encounter: 17:59 - Assessment and plan (1) AAA (abdominal aortic aneurysm) Current Visit: Yes Status: Acute Asymptomatic 4.9 cm abdominal aortic aneurysm. I reviewed with the patient and her nephew the natural history of abdominal aortic aneurysms. I emphasized the potential family lineage and genetic linkage because of her father having an aneurysm. I strongly advise other family members to be tested by outpatient abdominal ultrasound scanning. Due to her greater than 1 month long history of recurrent pulmonary problems the patient is not a candidate for any surgical intervention at this time. I recommended that the patient follow-up with me in 6 months with a repeat CT angiogram and I would anticipate that if she is medically stable we will then proceed with surgery at that time. I explained that we would offer endovascular abdominal aortic aneurysm repair and that she is not an appropriate candidate for open aortic surgical repair. I again reviewed with the patient and now a another nephew the natural history of abdominal aortic aneurysms. I answered all their questions. I provided the patient with a patient information booklet about endovascular aneurysm repair. All questions were answered. Qualifiers: Presence of rupture: without rupture Qualified Code(s): I71.4 - Abdominal aortic aneurysm, without rupture (2) HCAP (healthcare-associated pneumonia) Current Visit: Yes Status: Acute The patient is currently being treated for HCAP - Subjective Interval history: The patient has no new complaints. She denies any issues that would be associated with her abdominal aortic aneurysm. She states her overall status is stable if not improved. Vital Signs, Last 4 Hours Temp Pulse Resp BP Pulse Ox 11/12/16 15:00 97.7 F 66 15 122/61 95 - Physical Examination General: Present: Conversant, No Apparent Distress HEENT: Present: Atraumatic Neck: Absent: JVD Neuro: Present: Alert and responsive, No focal deficits noted Abdomen: Present: Soft Results 11/12/16 04:06 11/12/16 04:06 Lab Results, Last 24 hours 11/12/16 11/12/16 04:06 04:06 WBC 3.5 L Hgb 11.9 Hct 37.2 Plt Count 144 Sodium 137 Potassium 3.8 D Chloride 104 Carbon Dioxide 22 BUN 23 H Creatinine 1.43 H Glucose 228 H Calcium 8.9 Consult Discharge Plan - Plan Referrals: Edgar Nguyen Jr, MD [Primary Care Provider] - 11/19/16 3:00 pm Michael Guzman MD [Partnered Physician] - (Patient should be scheduled for a six-month follow-up with Dr. Guzman. The patient should have a repeat CT angiogram of the abdomen and pelvis prior to her visit with Dr. Guzman)
[2016-11-12] MEDS: *HR* Acetylcysteine 20% 600 MG/3 ML ORAL SYRINGE PO SCH ×2 (20:27→20:30)
[2016-11-12] MEDS: Levofloxacin 750 MG/150 ML 750 MG/150 ML BAG IVPB SCH (20:29)
[2016-11-12] MEDS: Vancomycin 1,500 MG in D5% in Water 250 ML IVPB SCH (22:56)
[2016-11-13] MEDS: Piperacillin/Tazobactam 3.375 GM in D5% in Water (Mini-Bag+) 100 ML IVPB SCH ×4 (00:37→23:57)
[2016-11-13] MEDS: Insulin LISPRO 300 UNITS/3 ML VIAL SQ SCH ×6 (00:41→21:31)
[2016-11-13] MEDS: Ipratropium/Albuterol Neb 3 ML IH SCH ×4 (04:02→22:21)
[2016-11-13 04:41] LABS: Hematocrit 37.4 % (35.3-44.9); Hemoglobin 11.9 g/dL (11.5-15.4); Immature Granulocytes % 0.5 % (0-4); Lymphocytes # 0.8 K/mcL (0.6-4.6); Lymphocytes % 11.6 %; Mean Corpuscular HGB Conc 31.8 g/dL (31.6-35.5); Mean Corpuscular Volume 91.2 fL (83.0-100.0); Monocytes # 0.4 K/mcL (0.0-1.3); Monocytes % 6.4 %; Neutrophils # 5.3 K/mcL (1.6-8.9); Platelet Count 185 K/mcL (140-400); Red Cell Distribution Width 14.6 % (11.5-14.5); Segmented Neutrophils % 81.5 %
[2016-11-13 05:16] LABS: Calcium 9.1 mg/dL (8.6-10.8); Potassium 3.6 mEq/L (3.5-4.5)
[2016-11-13] MEDS: *HR* Heparin 5,000 UNIT/ML VIAL SQ SCH ×3 (08:08→21:32)
[2016-11-13] MEDS: Furosemide 40 MG TABLET PO SCH (08:09)
[2016-11-13] MEDS: Metoprolol XL (24 HR) Succ 50 MG TAB.ER.24H PO SCH (08:09)
[2016-11-13] MEDS: predniSONE 20 MG TABLET PO SCH (08:09)
[2016-11-13] MEDS: *HR* Acetylcysteine 20% 600 MG/3 ML ORAL SYRINGE PO SCH ×2 (08:11→21:32)
--- NOTE | 2016-11-13 11:52 | Internal Med Progress Note ---
<Eusebio Patel - Last Filed: 11/13/16 11:49> Date of Encounter: 11/13/16 Time of Encounter: 11:49 - Assessment and plan (1) HCAP (healthcare-associated pneumonia) Current Visit: Yes Status: Acute Assessment and plan: Patient admitted with HCAP Blood and sputum culture show no growth to date. She has been on Vancomycin/Zosyn/and Levofloxacin she dose not meet sepsis criteria Now on room oxygen Clinically improving. Will plan to deescalate antibiotics and DC vancomycin today. There is concern that this left pleural effusion may be a parapneumonic effusion. I will discuss with pulmonology for their input. May need a thoracentesis. (2) Pleural effusion Current Visit: Yes Status: Acute Assessment and plan: as stated above. (3) Abdominal aortic aneurysm Current Visit: Yes Status: Acute Assessment and plan: She is asymptomatic. Increasing in size from prior studies. Now 4.9 cm She will follow up with Dr. Guzman in 6 months for repeat scan and possible EVAR. continue beta pankaj. (4) CKD (chronic kidney disease) Current Visit: Yes Status: Acute Assessment and plan: CKD 3a stable and near baseline continue to monitor while in the hospital. Avoid nephrotoxins Plan to DC vancomycin today. (5) History of mitral valve replacement with bioprosthetic valve Current Visit: Yes Status: Chronic (6) Elevated troponin Current Visit: Yes Status: Acute Assessment and plan: mild Chest pain free Peak troponin 0.12 in the setting of CKD3 and Pneumonia. This is likely secondary to demand ischemia. (7) DVT prophylaxis Current Visit: Yes Status: Acute Assessment and plan: continue SQ heparin. - Subjective Interval history: no major events overnight. Patient states that she is feeling much better. She dose complain of worsening cough that is now productive with a yellow blood tinged sputum. She denies any chest pain. she denies dyspnea. No syncope , presyncope, or chest pain. she has no further complaints at this time. She states that she is feleing much better and inquires about when she will be discharged. No further complaints or concerns at this time. - Constitutional Vitals: Temp Pulse Resp BP Pulse Ox 97.9 F 63 18 118/71 95 11/13/16 07:36 11/13/16 07:36 11/13/16 10:43 11/13/16 07:36 11/13/16 10:43 General appearance: Present: A&O X 3, morbidly obese, pleasant, no acute distress, obese - Head Head exam: Present: atraumatic, normal inspection, normocephalic - Eye Eye exam: Present: PERRL, conjuntiva pink, sclera anicteric Pupils: Present: PERRL - ENT ENT exam: Present: mucous membranes moist, normal external ear exam, normal oropharynx - Neck Neck exam general surgery: Present: supple, trachea midline. Absent: lymphadenopathy - Respiratory Respiratory exam: Absent: accessory muscle use, rales, rhonchi, wheezes Additional comments: she has bilateral crackles at the bases. Greater on the left. She has crackles that are also present in the mid lung field on the left as well. She has normal effort and converses in full sentences. - Cardiovascular Cardiovascular exam: Present: RRR, +S1, +S2. Absent: diastolic murmur, gallop, rubs, systolic murmur - GI/Abdominal GI/Abdominal exam: Present: normal bowel sounds, soft, no peritoneal signs. Absent: distended, tenderness - Extremities Exam Extremities exam: Present: warm, radial pulses palpable and symetrical. Absent : calf tenderness, cyanotic, pedal edema - Skin Skin exam: Present: dry, intact Internal Medicine: Result - Labs CBC & Chem 7: 11/13/16 04:16 11/13/16 04:16 Labs: Short CBC 11/13/16 Range/Units 04:16 WBC 6.5 D (4.3-11.1) K/mcL Hgb 11.9 (11.5-15.4) g/dL Hct 37.4 (35.3-44.9) % Plt Count 185 (140-400) K/mcL Neutrophils # 5.3 (1.6-8.9) K/mcL BMP 11/13/16 04:16 Sodium 140 Potassium 3.6 Chloride 106 Carbon Dioxide 23 BUN 23 H Creatinine 1.27 H Glucose 96 Calcium 9.1 Consult Discharge Plan - Plan Referrals: Edgar Nguyen Jr, MD [Primary Care Provider] - 11/19/16 3:00 pm Michael Guzman MD [Partnered Physician] - (Patient should be scheduled for a six-month follow-up with Dr. Guzman. The patient should have a repeat CT angiogram of the abdomen and pelvis prior to her visit with Dr. Guzman) <Ag Awan H - Last Filed: 11/13/16 13:38> Date of Encounter: 11/13/16 - Constitutional Vitals: Temp Pulse Resp BP Pulse Ox 97.9 F 63 18 118/71 95 11/13/16 07:36 11/13/16 07:36 11/13/16 10:43 11/13/16 07:36 11/13/16 10:43 Internal Medicine: Result - Labs CBC & Chem 7: 11/13/16 04:16 11/13/16 04:16 Labs: Short CBC 11/13/16 Range/Units 04:16 WBC 6.5 D (4.3-11.1) K/mcL Hgb 11.9 (11.5-15.4) g/dL Hct 37.4 (35.3-44.9) % Plt Count 185 (140-400) K/mcL Neutrophils # 5.3 (1.6-8.9) K/mcL BMP 11/13/16 04:16 Sodium 140 Potassium 3.6 Chloride 106 Carbon Dioxide 23 BUN 23 H Creatinine 1.27 H Glucose 96 Calcium 9.1 - Attending Attestation Discontinue vancomycin and repeat sputum culture CT scan of the abdomen showed increased size of AAA with a small chronic loculated right pleural effusion that is improved from the prior CT scan of the chest, there is a new left lower lobe consolidation/pulmonary effusion that is being treated Continue Levaquin and Zosyn day 4, consider pulmonary consult although during her last hospitalization the cardiothoracic surgery was consulted and apparently she was not a candidate for any surgical procedure/or thoracenteses. Possible acute COPD exacerbation/diffuse crackles and wheezing Start IV Solu-Medrol I examined this patient and my medical decision-making was reviewed with the BURNER TECHNICIAN/PA/Advanced Practice Nurse/Resident Physician. I agree with the documented findings, disposition and treatment plan as described except to the extent set forth below.
[2016-11-13] MEDS ORDERED: Aminoglycoside Consult 1 EACH MC ONE (12:40)
[2016-11-13] MEDS: Insulin DETEMIR 100 UNIT/ML X5UNITS SQ SCH (12:44)
[2016-11-13] MEDS: MethylPREDNISolone 40 MG/ML VIAL IVP SCH ×2 (17:28→23:57)
[2016-11-14] MEDS: Ipratropium/Albuterol Neb 3 ML IH SCH ×4 (03:41→21:45)
[2016-11-14] MEDS: Insulin LISPRO 300 UNITS/3 ML VIAL SQ SCH ×5 (04:17→17:08)
[2016-11-14 06:09] LABS: Hematocrit 37.3 % (35.3-44.9); Hemoglobin 11.9 g/dL (11.5-15.4); Mean Corpuscular HGB Conc 31.9 g/dL (31.6-35.5); Mean Corpuscular Volume 90.8 fL (83.0-100.0); Mean Platelet Volume 10.2 fL (9.4-12.4); Platelet Count 199 K/mcL (140-400); Red Blood Count 4.11 M/mcL (3.82-4.97); Red Cell Distribution Width 14.6 % (11.5-14.5)
[2016-11-14] MEDS: MethylPREDNISolone 40 MG/ML VIAL IVP SCH ×3 (06:20→17:07)
[2016-11-14] MEDS: *HR* Heparin 5,000 UNIT/ML VIAL SQ SCH ×2 (06:20→13:18)
[2016-11-14 06:25] LABS: Calcium 9.1 mg/dL (8.6-10.8); Potassium 3.7 mEq/L (3.5-4.5)
[2016-11-14] MEDS: *HR* Acetylcysteine 20% 600 MG/3 ML ORAL SYRINGE PO SCH ×2 (08:14→20:18)
[2016-11-14] MEDS: Metoprolol XL (24 HR) Succ 50 MG TAB.ER.24H PO SCH (08:14)
[2016-11-14] MEDS: Furosemide 40 MG TABLET PO SCH (08:14)
[2016-11-14] MEDS: Insulin DETEMIR 100 UNIT/ML X5UNITS SQ SCH (08:14)
[2016-11-14] MEDS: Piperacillin/Tazobactam 3.375 GM in D5% in Water (Mini-Bag+) 100 ML IVPB SCH ×3 (08:15→17:07)
--- NOTE | 2016-11-14 08:37 | Internal Med Progress Note ---
<Eusebio Patel - Last Filed: 11/14/16 08:34> Date of Encounter: 11/14/16 Time of Encounter: 08:35 - Assessment and plan (1) HCAP (healthcare-associated pneumonia) Current Visit: Yes Status: Acute Assessment and plan: Patient admitted with HCAP Blood and sputum culture show no growth to date. preliminary sputum culture has less than 10 WBC , GNR and dipplococci. I think this will be normal thiago as well. However sputum is Fuchs. concern for pseudomonnas. We will repeat once more with induced sputum. she dose not meet sepsis criteria WBC trending down and mildly leukopen ic. Now on room oxygen Clinically improving. She recieved 3 days of Vancomycin. And 4 days of Levofloxacin and Zosyn. we will continue the Levo and Zosyn for now as concern for possible pseudomonas. We will also obtain a repeat CXR. (2) Pleural effusion Current Visit: Yes Status: Acute Assessment and plan: as stated above. (3) Abdominal aortic aneurysm Current Visit: Yes Status: Acute Assessment and plan: She is asymptomatic. Increasing in size from prior studies. Now 4.9 cm She will follow up with Dr. Guzman in 6 months for repeat scan and possible EVAR. continue beta pankaj. (4) CKD (chronic kidney disease) Current Visit: Yes Status: Acute Assessment and plan: CKD 3a stable and near baseline continue to monitor while in the hospital. Avoid nephrotoxins CrCL is 42 so no need for adjustment of antibiotics at this time. (5) History of mitral valve replacement with bioprosthetic valve Current Visit: Yes Status: Chronic (6) Elevated troponin Current Visit: Yes Status: Acute Assessment and plan: mild Chest pain free Peak troponin 0.12 in the setting of CKD3 and Pneumonia. trended down. This is likely secondary to demand ischemia. (7) Diabetes Current Visit: Yes Status: Acute Assessment and plan: blood glucose above goal. Secondary to addition of steroids. Will increase sliding scale to high dose. (8) DVT prophylaxis Current Visit: Yes Status: Acute Assessment and plan: continue SQ heparin. - Subjective Interval history: Today the patient states that she is feeling better. She has less of a cough and is breathing easier. She is currently on room air. She dose admit to one episode of loose stool yesterday. She denies any pain or discomfort. She has no further complaints or concerns at this time. - Constitutional Vitals: Temp Pulse Resp BP Pulse Ox 97.5 F L 59 15 151/82 95 11/14/16 06:37 11/14/16 06:37 11/14/16 06:37 11/14/16 06:37 11/14/16 06:37 General appearance: Present: A&O X 3, morbidly obese, pleasant, no acute distress, obese - Head Head exam: Present: atraumatic, normal inspection, normocephalic - Eye Eye exam: Present: PERRL, conjuntiva pink, sclera anicteric Pupils: Present: PERRL - ENT ENT exam: Present: mucous membranes moist - Neck Neck exam general surgery: Present: supple, trachea midline. Absent: lymphadenopathy - Respiratory Respiratory exam: Present: wheezes. Absent: accessory muscle use, rales, rhonchi Additional comments: She has bibasilar crepitus > left than right. She also has crepitus in the mid left lung field. She has a normal effort of breathing and is able to converse normally. - Cardiovascular Cardiovascular exam: Present: RRR, +S1, +S2. Absent: diastolic murmur, gallop, rubs, systolic murmur Additional comments: pacer in in the RUQ - GI/Abdominal GI/Abdominal exam: Present: normal bowel sounds, soft, no peritoneal signs. Absent: distended, tenderness - Extremities Exam Extremities exam: Present: warm, radial pulses palpable and symetrical. Absent : calf tenderness, cyanotic, pedal edema - Skin Skin exam: Present: dry, intact Internal Medicine: Result - Labs CBC & Chem 7: 11/14/16 04:03 11/14/16 04:03 Labs: Short CBC 11/14/16 Range/Units 04:03 WBC 3.0 L D (4.3-11.1) K/mcL Hgb 11.9 (11.5-15.4) g/dL Hct 37.3 (35.3-44.9) % Plt Count 199 (140-400) K/mcL [facility] 11/14/16 04:03 Sodium 141 Potassium 3.7 Chloride 104 Carbon Dioxide 24 BUN 22 H Creatinine 1.24 H Glucose 227 H Calcium 9.1 - Impressions Impressions Videofluoroscopic Swallow 11/13/16 13:47 IMPRESSION: Laryngeal penetration with thin liquid. No evidence of michelle aspiration. Please see separate speech pathology report for full discussion of findings and recommendations. D/ / Julien Oliva MD / Julien Oliva MD Interpreting Provider: Julien Oliva MD Consult Discharge Plan - Plan Referrals: Edgar Nguyen Jr, MD [Primary Care Provider] - 11/19/16 3:00 pm Michael Guzman MD [Partnered Physician] - (Patient should be scheduled for a six-month follow-up with Dr. Guzman. The patient should have a repeat CT angiogram of the abdomen and pelvis prior to her visit with Dr. Guzman) <RaquelestebanAg roque - Last Filed: 11/14/16 09:06> Date of Encounter: 11/14/16 - Constitutional Vitals: Temp Pulse Resp BP Pulse Ox 97.5 F L 59 15 151/82 95 11/14/16 06:37 11/14/16 06:37 11/14/16 06:37 11/14/16 06:37 11/14/16 08:36 Internal Medicine: Result - Labs CBC & Chem 7: 11/14/16 04:03 11/14/16 04:03 Labs: Short CBC 11/14/16 Range/Units 04:03 WBC 3.0 L D (4.3-11.1) K/mcL Hgb 11.9 (11.5-15.4) g/dL Hct 37.3 (35.3-44.9) % Plt Count 199 (140-400) K/mcL BMP 11/14/16 04:03 Sodium 141 Potassium 3.7 Chloride 104 Carbon Dioxide 24 BUN 22 H Creatinine 1.24 H Glucose 227 H Calcium 9.1 - Impressions Impressions Videofluoroscopic Swallow 11/13/16 13:47 IMPRESSION: Laryngeal penetration with thin liquid. No evidence of michelle aspiration. Please see separate speech pathology report for full discussion of findings and recommendations. D/ / Julien Oliva MD / Julien Oliva MD Interpreting Provider: Julien Oliva MD - Attending Attestation Amee I examined this patient and my medical decision-making was reviewed with the REWINDER OPERATOR HELPER/PA/Advanced Practice Nurse/Resident Physician. I agree with the documented findings, disposition and treatment plan as described except to the extent set forth below.
[2016-11-14] MEDS ORDERED: Sodium Chloride for inhalation 3 ML VIAL IH ONE (16:43)
[2016-11-14] MEDS: Levofloxacin 750 MG/150 ML 750 MG/150 ML BAG IVPB SCH (20:19)
[2016-11-14] MEDS ORDERED: Insulin LISPRO 300 UNITS/3 ML VIAL SQ SCH (21:00)
[2016-11-15] MEDS: Piperacillin/Tazobactam 3.375 GM in D5% in Water (Mini-Bag+) 100 ML IVPB SCH ×2 (00:27→08:18)
[2016-11-15] MEDS: *HR* Heparin 5,000 UNIT/ML VIAL SQ SCH ×2 (00:27→06:37)
[2016-11-15] MEDS: MethylPREDNISolone 40 MG/ML VIAL IVP SCH ×2 (00:27→06:37)
[2016-11-15] MEDS: Ipratropium/Albuterol Neb 3 ML IH SCH ×2 (05:03→10:35)
[2016-11-15 05:36] LABS: Hematocrit 35.6 % (35.3-44.9); Hemoglobin 11.6 g/dL (11.5-15.4); Mean Corpuscular HGB Conc 32.6 g/dL (31.6-35.5); Mean Corpuscular Hemoglobin 29.1 pg (28.0-33.3); Mean Corpuscular Volume 89.4 fL (83.0-100.0); Mean Platelet Volume 10.6 fL (9.4-12.4); Platelet Count 222 K/mcL (140-400); Red Blood Count 3.98 M/mcL (3.82-4.97); Red Cell Distribution Width 14.4 % (11.5-14.5)
[2016-11-15 05:43] LABS: Calcium 9.2 mg/dL (8.6-10.8); Potassium 4.1 mEq/L (3.5-4.5)
[2016-11-15 07:52] VITALS: BP 144/78
[2016-11-15] MEDS: *HR* Acetylcysteine 20% 600 MG/3 ML ORAL SYRINGE PO SCH (08:18)
[2016-11-15] MEDS: Furosemide 40 MG TABLET PO SCH (08:19)
[2016-11-15] MEDS: Insulin DETEMIR 100 UNIT/ML X5UNITS SQ SCH (08:19)
[2016-11-15] MEDS: Metoprolol XL (24 HR) Succ 50 MG TAB.ER.24H PO SCH (08:20)
[2016-11-15] MEDS: Insulin LISPRO 300 UNITS/3 ML VIAL SQ SCH (08:20)
--- NOTE | 2016-11-15 09:14 | Discharge Summary ---
<JorgeEusebio - Last Filed: 11/15/16 09:07> Date of Encounter: 11/15/16 Time of Encounter: 09:07 - Discharge Diagnosis (1) HCAP (healthcare-associated pneumonia) Priority: Primary Status: Acute (2) Pleural effusion Priority: Secondary Status: Acute Comments: minimal/ small not increasing in size on repeat imaging. (3) Abdominal aortic aneurysm Priority: Secondary Status: Acute (4) CKD (chronic kidney disease) Priority: Secondary Status: Acute (5) History of mitral valve replacement with bioprosthetic valve Priority: Secondary Status: Chronic (6) Elevated troponin Priority: Secondary Status: Acute (7) Diabetes Priority: Secondary Status: Acute (8) DVT prophylaxis Priority: Secondary Status: Acute - Discharge Medications Prescriptions: Lactobacillus [Culturelle] 1 each PO BID #10 cap.sprink Levofloxacin 750 mg PO DAILY #5 tablet PredniSONE 10 mg PO DAILY #7 tablet Home Medications: Aspirin 81 mg PO DAILY 02/07/16 [History] Clopidogrel [Plavix] 75 mg PO DAILY 02/07/16 [History] Metoprolol XL (24 HR) Succ [Toprol Xl] 100 mg PO DAILY 08/21/16 [History] Insulin Glargine,Hum.rec.anlog [Lantus Solostar] 25 unit SQ DAILY 30 Days [Rx] Albuterol Sulfate [Albuterol Inhaler] 2 puff IH Q4HR PRN 10/01/16 [History] Furosemide [Lasix] 40 mg PO DAILY 10/01/16 [History] Budesonide/Formoterol 80/4.5 [Symbicort 80/4.5] 2 puff IH BID 11/11/16 [History ] Insulin LISPRO [HumaLOG] 2 - 12 units SQ TIDAC 11/11/16 [History] Ipratropium/Albuterol Neb [Duoneb] 3 ml IH Q6HR 11/11/16 [History] Lactobacillus [Culturelle] 1 each PO BID #10 cap.sprink 11/15/16 [Rx] Levofloxacin 750 mg PO DAILY #5 tablet 11/15/16 [Rx] PredniSONE 10 mg PO DAILY #7 tablet 11/15/16 [Rx] Allergies/Adverse Reactions: Allergies codeine Allergy (Verified 10/01/16 13:46) See Comments "GOES INTO COMA" acetaminophen [From Darvocet-N] Adverse Reaction (Verified 11/11/16 14:38) Nausea morphine Adverse Reaction (Verified 11/11/16 14:38) Nausea propoxyphene [From Darvocet-N] Adverse Reaction (Verified 11/11/16 14:38) Nausea Date of admission: 11/10/16 19:36 Primary care physician: Edgar Nguyen Jr, MD Consults: 11/10/16 21:35 Consult to Vascular Surgery [CONS] Routine Consulting Provider: V[facility] Surgery [facility] Reason for Consult: increase in size of AAA by 1cm in 2 years to 4.9x 4.3cm Call Completed: No 11/13/16 13:47 Consult to Speech Therapy [CONS] Routine Comment: Evaluate, develop and implement POC Reason for Consult: aspiration Call Completed: No 11/14/16 16:42 Consult to Respiratory Therapy [CONS] Routine Reason for Consult: induced sputum sample please Call Completed: No Discharging clinician: Eusebio Patel Anticipated date of discharge: 11/15/16 - Patient Status Disposition: Home, Self-Care Condition: Fair Functional capacity at discharge: independent ambulation Overall status at discharge: patient is progressing back to baseline - Discharge Instructions Instructions: Prednisone (By mouth), Abdominal Aortic Aneurysm (DC), Diabetes Mellitus Type 2 in Adults (DC) Follow Up With: Edgar Nguyen Jr, MD [Primary Care Provider] - 11/19/16 3:00 pm Michael Guzman MD [Partnered Physician] - (The office will be calling you with appts for repeat CTA of abdomen and follow up appt.) Additional Instructions: Changes to your home medications include the addition of an antibiotic ( levofloxacin), a steroid taper, and culturelle. Please take antibiotics to completion. take all medications as prescribed. Follow up with your PCP in the next 7 days. Please follow up with your appointment with Dr. Guzman ( Vascular Surgery) If you have increased shortness of breath or dyspnea call your PCP or return to the ED. - Diet and Activity Activity: increase activity as tolerated Diet: diabetic diet Hospital course: Ms. Florez is a very pleasant 76 year old female that I had the pleasure of taking care of this hospitalization. She was admitted with HCAP. This was recurrent as she had right sided lower lobe pneumonia in August of this year. She was treated with broad spectrum antibiotics. She has improved clinically. She is on room air , ambulating without dificulty, tolerating a diet and having normal bowel and bladder functions. No major abnormalities were on todays labs. She did have a small pleural effusion in the left lower lobe. She is afebrile. Blood and sputum cultures have shown no growth to date. however she did have an induced sputum culture yesterday. Preliminary shows few GPC and GNR. I will follow up with those results. Should consider repeat CXR in 6 weeks to ensure resolution. She also was noted to have an abdominal AA of 4.9 Cm that had enlarged from prior studies. She was seen in consultation by Dr. Guzman. He did not recommend surgery at this time given her acute illness. She has a follow up appointment with him. The Patient has voiced back her understanding and agreement to the discharge plan. We will discharge her home today. - Time Spent with Patient Total time spent providing and/or coordinating discharge services: Greater than 30 minutes (approximately 45 minutes.) - Constitutional Vitals: Temp Pulse Resp BP Pulse Ox 98.0 F 76 17 144/78 94 L 11/15/16 07:51 11/15/16 07:51 11/15/16 07:51 11/15/16 07:51 11/15/16 07:51 General appearance: Present: A&O X 3, morbidly obese, pleasant, no acute distress, obese - Head Head exam: Present: atraumatic, normocephalic - Eye Eye exam: Present: PERRL, conjuntiva pink, sclera anicteric Pupils: Present: PERRL - Neck Neck exam general surgery: Present: supple, trachea midline. Absent: lymphadenopathy - Respiratory Respiratory exam: Absent: accessory muscle use, rales, rhonchi, wheezes Additional comments: l has some crackles in the left lung field. However this has improved. - Cardiovascular Cardiovascular exam: Present: RRR, +S1, +S2. Absent: diastolic murmur, gallop, rubs, systolic murmur - GI/Abdominal GI/Abdominal exam: Present: normal bowel sounds, soft, no peritoneal signs. Absent: distended, tenderness - Extremities Exam Extremities exam: Present: warm, radial pulses palpable and symetrical. Absent : calf tenderness, cyanotic, pedal edema - Skin Skin exam: Present: dry, intact <Ag Awan - Last Filed: 11/15/16 11:11> Date of Encounter: 11/15/16 Date of admission: 11/10/16 19:36 Primary care physician: Edgar Nguyen Jr, MD Consults: 11/10/16 21:35 Consult to Vascular Surgery [CONS] Routine Consulting Provider: Vascular Surgery [facility] Reason for Consult: increase in size of AAA by 1cm in 2 years to 4.9x 4.3cm Call Completed: No 11/13/16 13:47 Consult to Speech Therapy [CONS] Routine Comment: Evaluate, develop and implement POC Reason for Consult: aspiration Call Completed: No 11/14/16 16:42 Consult to Respiratory Therapy [CONS] Routine Reason for Consult: induced sputum sample please Call Completed: No Hospital course: Ms. Florez is a 76 year old female - Time Spent with Patient Total time spent providing and/or coordinating discharge services: - Constitutional Vitals: Temp Pulse Resp BP Pulse Ox 98.0 F 76 17 144/78 94 L 11/15/16 07:51 11/15/16 07:51 11/15/16 07:51 11/15/16 07:51 11/15/16 07:51 - Attending Attestation coomplete 5 more days of Levaquin . Normal thiago growing on 1st sputum culture. I examined this patient and my medical decision-making was reviewed with the HORSE TRAINER/PA/Advanced Practice Nurse/Resident Physician. I agree with the documented findings, disposition and treatment plan as described except to the extent set forth below.
== END 2016-11-15 10:50 | disposition home or self-care (01) ==
LOC: 3BNU 12:52 → EMEROO 12:52 → SUATTDRO 19:36 → 3BNU 20:10
PROVIDERS: ADMIT Internal Medicine; ATTEND Internal Medicine

== ENCOUNTER 2016-12-20 20:04 | Observation (INO) ==
[2016-12-20] MEDS ORDERED: Ondansetron 4 MG/2 ML VIAL IV ONE (20:19)
[2016-12-20] MEDS ORDERED: methylPREDNISolone 125 MG/2 ML VIAL IVP ONE (20:19)
[2016-12-20] MEDS ORDERED: Ipratropium/Albuterol Neb 3 ML IH ONE (20:19)
[2016-12-20] MEDS ORDERED: *HR* FentaNYL (PF) 100 MCG/2 ML VIAL IVP ONE (20:21)
--- NOTE | 2016-12-20 20:46 | Emergency Department Note ---
START Narrative - START START: For this encounter, I have reviewed the resident, [employer], or PA documentation, treatment plan, and medical decision making; and I have had face to face time with this patient. 76-year-old female presents with increasing shortness of breath over the past few days as well as epigastric pain. Patient has a history of an abdominal aortic aneurysm. Last imaged one month ago. Patient reports her abdominal pain has significantly worsened over the past 2 days. She denies hematochezia, melena, hematemesis. Patient denies feeling lightheaded or near syncopal. On physical examination the patient has rales in the bilateral inferior lung jarquin. BNP is mildly elevated at 155. Chest x-ray was suggestive of congestive heart failure. CTA of the chest abdomen pelvis reveals a aneurysm of the infrarenal abdominal aorta which stable from previous exams. No evidence of acute hemorrhage or dissection. Patient had significant difficulty with ambulation emergency department. Patient felt comfortable to be admitted for increasing shortness of breath and further evaluation.
[2016-12-20 20:56] LABS: Basophils # 0.1 K/mcL (0.0-0.2); Basophils % 0.8 %; Eosinophils # 0.2 K/mcL (0.0-0.6); Eosinophils % 2.8 %; Hematocrit 37.9 % (35.3-44.9); Hemoglobin 12.1 g/dL (11.5-15.4); Immature Granulocytes % 0.4 % (0-4); Immature Platelets 2.8 % (1.1-6.1); Lymphocytes # 1.1 K/mcL (0.6-4.6); Lymphocytes % 13.4 %; Mean Corpuscular HGB Conc 31.9 g/dL (31.6-35.5); Mean Corpuscular Hemoglobin 29.3 pg (28.0-33.3); Mean Corpuscular Volume 91.8 fL (83.0-100.0); Mean Platelet Volume 9.9 fL (9.4-12.4); Monocytes # 0.6 K/mcL (0.0-1.3); Monocytes % 7.2 %; Platelet Count 273 K/mcL (140-400); Red Blood Count 4.13 M/mcL (3.82-4.97); Red Cell Distribution Width 14.8 % (11.5-14.5); Segmented Neutrophils % 75.4 %
[2016-12-20 21:04] LABS: Activated Partial Thrombo Time 29.8 Seconds (26.0-36.0)
[2016-12-20 21:13] LABS: Albumin 3.6 g/dL (3.5-5.0); Bilirubin,Direct 0.2 mg/dL (0.0-0.5); Bilirubin,Indirect 0.4 mg/dL (0.0-1.2); Bilirubin,Total 0.6 mg/dL (0.2-1.2); Calcium 9.4 mg/dL (8.6-10.8); Globulin 3.5 g/dL (2.4-3.5); Potassium 4.6 mEq/L (3.5-4.5); Total Protein 7.1 g/dL (6.0-8.3)
[2016-12-20 21:16] LABS: Bilirubin,Urine Negative (Negative); Blood,Urine Negative (Negative); Clarity,Urine Clear (Clear); Color,Urine Yellow (Yellow); Glucose,Urine (UA) Normal (Normal); Ketones,Urine Negative (Negative); Leukocyte Esterase,Urine Negative (Negative); Nitrite,Urine Negative (Negative); Protein,Urine 30 mg/dL (Neg-Trace); Specific Gravity,Urine 1.022 (1.010-1.025); Urobilinogen,Urine Normal (Normal)
[2016-12-20 21:19] LABS: Bacteria,Urine None Seen per hpf (None-Few); Hyaline Casts,Urine None Seen per lpf (None-Few); RBC,Urine 0-3 per hpf (0-3); Squamous Epithelial Cell,Urine Many per lpf (None-Few); WBC,Urine 0-3 per hpf (0-3)
--- NOTE | 2016-12-20 21:35 | Emergency Department Note ---
Disposition Clinical Impression: SOB (shortness of breath) Congestive heart failure Qualifiers: Congestive heart failure type: unspecified congestive heart failure type Congestive heart failure chronicity: acute on chronic Qualified Code(s): I50.9 - Heart failure, unspecified Abdominal pain Qualifiers: Abdominal location: epigastric Qualified Code(s): R10.13 - Epigastric pain Disposition: Admitted As Inpatient Condition: Fair Referrals: Edgar Nguyen Jr, MD [Primary Care Provider] - Forms: ED Satisfaction Letter Time of Disposition: 23:45 SOB HPI - General Chief Complaint: ED Shortness of Breath/Dyspnea Stated Complaint: OG, belly pain Time Seen by Provider: 12/20/16 20:18 Source: patient, family Mode of arrival: ambulatory Limitations: no limitations Nursing Notes Reviewed: Yes Vital Signs Reviewed: Yes - History of Present Illness Patient presents emergency room with complaint of abdominal pain midepigastric in nature. She also has shortness of breath. She normally is on oxygen but has not required it all the time. She is felt she needed oxygen 24 hours a day at this point. Patient denies any other symptoms or complaints at this time she has a cardiac history including a CABG 2 events as well as a valve replacement. Patient also has known intra-abdominal aneurysms. Symptom onset was approximately 2 weeks ago and has been worse over the last 3 days. She denies any trauma or injuries. No recent medication changes. She was concerned and decided to come the emergency room for evaluation Onset (ago): week(s) (2 weeks) Severity: moderate Consistency/Duration: constant Improves with: oxygen, rest Worsens with: lying flat, exertion Associated symptoms: Reports: chest pain, orthopnea, palpitations, abdominal pain Treatment prior to arrival: oxygen Cough present: No - Related Data Home oxygen amount: 3 liters Home Medications Medication Instructions Recorded Confirmed Aspirin 81 mg PO DAILY 02/07/16 11/11/16 Clopidogrel [Plavix] 75 mg PO DAILY 02/07/16 11/11/16 Metoprolol XL (24 HR) Succ [Toprol 100 mg PO DAILY 08/21/16 11/11/16 Xl] Albuterol Sulfate [Albuterol 2 puff IH Q4HR PRN 10/01/16 11/11/16 Inhaler] Furosemide [Lasix] 40 mg PO DAILY 10/01/16 11/11/16 Budesonide/Formoterol 80/4.5 2 puff IH BID 11/11/16 11/11/16 [Symbicort 80/4.5] Insulin LISPRO [HumaLOG] 2 - 12 units SQ TIDAC 11/11/16 11/11/16 Ipratropium/Albuterol Neb [Duoneb] 3 ml IH Q6HR 11/11/16 11/11/16 Previous Rx's Medication Instructions Recorded Insulin Glargine,Hum.rec.anlog 25 unit SQ DAILY 30 Days 09/14/16 [Lantus Solostar] Lactobacillus [Culturelle] 1 each PO BID #10 cap.sprink 11/15/16 Levofloxacin 750 mg PO DAILY #5 tablet 11/15/16 PredniSONE 10 mg PO DAILY #7 tablet 11/15/16 Allergies Allergy/AdvReac Type Severity Reaction Status Date / Time codeine Allergy See Verified 10/01/16 13:46 Comments acetaminophen AdvReac Nausea Verified 11/11/16 14:38 [From Darvocet-N] morphine AdvReac Nausea Verified 11/11/16 14:38 propoxyphene AdvReac Nausea Verified 11/11/16 14:38 [From Darvocet-N] All systems ED: reviewed and negative except as stated. Cardiovascular: Denies: chest pain, palpitations Respiratory: Reports: dyspnea. Denies: cough, wheezes Gastrointestinal: Reports: abdominal pain. Denies: nausea, vomiting, diarrhea Genitourinary: Denies: urgency, dysuria Musculoskeletal: Denies: back pain, neck pain Neurological: Denies: headache Past Medical History - Past Medical History Attestation: Yes The following information was validated with the patient. 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 Absent : tenderness - Respiratory Respiratory exam: Present: respiratory distress, accessory muscle use. Absent: wheezes, stridor - Cardiovascular Cardiovascular exam: Present: regular rate, normal rhythm, normal heart sounds - Abdominal Exam Abdominal exam: Present: soft, tenderness (Mild epigastric tenderness with radiation in the abdomen. No guarding or rigidity no masses or pulsatile masses noted on examination.). Absent: Non-Tender, Orozco's sign, Rovsing's sign, tenderness at McBurney's Point, mass, pulsatile mass - Extremities Exam Extremities exam: Present: normal inspection, full ROM, normal capillary refill. Absent: tenderness, pedal edema - Back Exam Back exam: Present: normal inspection, full ROM - Neurological Exam Neurological exam: Present: alert, oriented X3, CN II-XII intact - Skin Skin exam: Present: warm, dry, intact, normal color Course Course Narrative: Patient seen and examined the time of arrival. See history of present illness. 76-year-old female with significant coronary artery disease history as well as intra-abdominal aneurysms. She was evaluated 1 month ago showing a 5.6 cm aneurysm in the abdomen. Surgical intervention was not performed. Patient presents here today with approximately 2 weeks worth of lower abdominal discomfort and midepigastric discomfort shortness patient shortness of breath. Patient uses oxygen at home but typically not at night. She is required oxygen 24 hours a day at this time. She denies any medication changes trauma or injury. Symptoms of been getting worse over this period of time. Vital signs reviewed here. She is hypertensive. Premedication fluids breathing treatments and nausea medications to be given at this time. Patient is resting in the bed. There is worry for progression of her aneurysm as well as poor pulmonary function. We will evaluate the patient with EKG chest x-ray labs urinalysis. Patient will have CT angiogram of the chest and abdomen for evaluation of her aneurysm as well as concern for possible pulmonary emboli. Patient is on Plavix for her heart valve. Disposition pending treatment course and evaluation. Patient is concerning for possible underlying medical issue that will require intervention. We will continue to monitor here until disposition is completed. Physical exam patient is sitting upright lungs are clear at this time but she does have accessory muscle use breathing. Abdomen is soft no pulsatile masses. We will continue to monitor. Disposition pending treatment course - Reevaluation(s) Reevaluation #1: Labs are coming back within normal limits. Patient shows no acute pathology. Chest x-ray is stable with mild pulmonary edema. BNP is slightly elevated. CT imaging is pending at this time. Disposition pending treatment course. Patient has been stable to course of care this point. Time: 21:35 Reevaluation #2: Patient has been comfortable resting in the bed. No other acute issues at this time. Patient will be evaluated on the emergency room because she is requesting to go home. She normally has her baseline oxygen of 3 L as she needs it when she is at home. Ambulation testing be completed. I would visualize the patient walking around the room and she has some significant shortness of breath along with difficulty with ambulation. Her pulse ox did not drop below 92% but she has shown increased work of breathing while walking. Patient is concerning for decompensation. We will discuss this with the patient determine disposition. Recommendation will be for admission to the hospital for CHF exacerbation and increased work of breathing. We will continue to monitor as his workup and treatment course is completed Time: 22:50 Reevaluation #3: Patient was discussed with the hospitalist Dr. davis. We reviewed the presentation symptoms medical history and intervention performed in emergency room. He requested 20 mg of Lasix ordered at this time to help with the primary congestion. No other acute findings during this treatment course. Patient with on the hospital for stabilization of her condition. No other recommendations this time per patient will be observed in emergency room until the admission process is completed. Time: 00:23 Vital Signs Temperature 98.2 F 12/20/16 20:07 Pulse Rate 79 12/20/16 20:07 Respiratory Rate 16 12/20/16 20:07 Blood Pressure 177/107 12/20/16 20:07 O2 Sat by Pulse Oximetry 97 12/20/16 20:07 Temperature 98.2 F 12/20/16 20:07 Pulse Rate 65 12/21/16 00:04 Respiratory Rate 16 12/21/16 00:04 Blood Pressure 122/66 12/21/16 00:04 O2 Sat by Pulse Oximetry 94 L 12/21/16 00:04 Oxygen Delivery Oxygen Delivery Room Air Shortness of Breath/Dyspnea - Medical Records Medical records reviewed: Yes I reviewed the patient's medical records. - Lab Data Lab results reviewed: Yes I reviewed the patient's lab results. Result diagrams: 12/20/16 20:47 12/20/16 20:47 Lab Results 12/20/16 12/20/16 12/20/16 Range/Units 20:47 20:47 20:47 WBC 7.9 (4.3-11.1) K/mcL RBC 4.13 (3.82-4.97) M/mcL Hgb 12.1 (11.5-15.4) g/dL Hct 37.9 (35.3-44.9) % MCV 91.8 (83.0-100.0) fL MCH 29.3 (28.0-33.3) pg MCHC 31.9 (31.6-35.5) g/dL RDW 14.8 H (11.5-14.5) % Plt Count 273 (140-400) K/mcL MPV 9.9 (9.4-12.4) fL Immature Gran % 0.4 (0-4) % Seg Neutrophils % 75.4 % Lymphocytes % 13.4 % Monocytes % 7.2 % Eosinophils % 2.8 % Basophils % 0.8 % Neutrophils # 6.0 (1.6-8.9) K/mcL Lymphocytes # 1.1 (0.6-4.6) K/mcL Monocytes # 0.6 (0.0-1.3) K/mcL Eosinophils # 0.2 (0.0-0.6) K/mcL Basophils # 0.1 (0.0-0.2) K/mcL Immature Plt Fraction 2.8 (1.1-6.1) % PT 11.0 (9.4-12.1) Seconds INR 1.0 APTT 29.8 (26.0-36.0) Seconds Sodium (136-145) mEq/L Potassium (3.5-4.5) mEq/L Chloride (98-109) mEq/L Carbon Dioxide (19-29) mEq/L BUN (7-20) mg/dL Creatinine (0.57-1.11) mg/dL Est GFR ( Amer) (> 60) Est GFR (Non-Af Amer) (> 60) BUN/Creatinine Ratio (6-26) Glucose (70-99) mg/dL Calculated Osmolality (280-300) Lactic Acid 1.3 (0.5-2.2) mmol/L Calcium (8.6-10.8) mg/dL Total Bilirubin (0.2-1.2) mg/dL Direct Bilirubin (0.0-0.5) mg/dL Indirect Bilirubin (0.0-1.2) mg/dL AST (5-34) Units/L ALT (0-55) Units/L Alkaline Phosphatase (38-126) Units/L Troponin I (0-0.03) ng/mL B-Natriuretic Peptide (0-100) pg/mL Serum Total Protein (6.0-8.3) g/dL Albumin (3.5-5.0) g/dL Globulin (2.4-3.5) g/dL Albumin/Globulin Ratio (1.1-2.2) Urine Color (Yellow) Urine Clarity (Clear) Urine pH (5.0-8.0) pH Units Ur Specific [place] (1.010-1.025) Urine Protein (Neg-Trace) mg/dL Urine Glucose (UA) (Normal) mg/dL Urine Ketones (Negative) mg/dL Urine Blood (Negative) Urine Nitrite (Negative) Urine Bilirubin (Negative) Urine Urobilinogen (Normal) mg/dL Ur Leukocyte Esterase (Negative) Urine Microscopic RBC (0-3) per hpf Urine Microscopic WBC (0-3) per hpf Ur Squamous Epith Cells (None-Few) per lpf Urine Bacteria (None-Few) per hpf Hyaline Casts (None-Few) per lpf Ur Culture Indicated? (NO) 12/20/16 12/20/16 12/20/16 Range/Units 20:47 20:47 20:47 WBC (4.3-11.1) K/mcL RBC (3.82-4.97) M/mcL Hgb (11.5-15.4) g/dL Hct (35.3-44.9) % MCV (83.0-100.0) fL MCH (28.0-33.3) pg MCHC (31.6-35.5) g/dL RDW (11.5-14.5) % Plt Count (140-400) K/mcL MPV (9.4-12.4) fL Immature Gran % (0-4) % Seg Neutrophils % % Lymphocytes % % Monocytes % % Eosinophils % % Basophils % % Neutrophils # (1.6-8.9) K/mcL Lymphocytes # (0.6-4.6) K/mcL Monocytes # (0.0-1.3) K/mcL Eosinophils # (0.0-0.6) K/mcL Basophils # (0.0-0.2) K/mcL Immature Plt Fraction (1.1-6.1) % PT (9.4-12.1) Seconds INR APTT (26.0-36.0) Seconds Sodium 142 (136-145) mEq/L Potassium 4.6 H (3.5-4.5) mEq/L Chloride 109 (98-109) mEq/L Carbon Dioxide 23 (19-29) mEq/L BUN 26 H (7-20) mg/dL Creatinine 1.14 H (0.57-1.11) mg/dL Est GFR ( Amer) 56 L (> 60) Est GFR (Non-Af Amer) 46 L (> 60) BUN/Creatinine Ratio 23 (6-26) Glucose 133 H (70-99) mg/dL Calculated Osmolality 301 H (280-300) Lactic Acid (0.5-2.2) mmol/L Calcium 9.4 (8.6-10.8) mg/dL Total Bilirubin 0.6 (0.2-1.2) mg/dL Direct Bilirubin 0.2 (0.0-0.5) mg/dL Indirect Bilirubin 0.4 (0.0-1.2) mg/dL AST 14 (5-34) Units/L ALT 17 (0-55) Units/L Alkaline Phosphatase 66 (38-126) Units/L Troponin I 0.01 (0-0.03) ng/mL B-Natriuretic Peptide 155 H (0-100) pg/mL Serum Total Protein 7.1 (6.0-8.3) g/dL Albumin 3.6 (3.5-5.0) g/dL Globulin 3.5 (2.4-3.5) g/dL Albumin/Globulin Ratio 1.0 L (1.1-2.2) Urine Color (Yellow) Urine Clarity (Clear) Urine pH (5.0-8.0) pH Units Ur Specific [place] (1.010-1.025) Urine Protein (Neg-Trace) mg/dL Urine Glucose (UA) (Normal) mg/dL Urine Ketones (Negative) mg/dL Urine Blood (Negative) Urine Nitrite (Negative) Urine Bilirubin (Negative) Urine Urobilinogen (Normal) mg/dL Ur Leukocyte Esterase (Negative) Urine Microscopic RBC (0-3) per hpf Urine Microscopic WBC (0-3) per hpf Ur Squamous Epith Cells (None-Few) per lpf Urine Bacteria (None-Few) per hpf Hyaline Casts (None-Few) per lpf Ur Culture Indicated? (NO) 12/20/16 Range/Units 21:08 WBC (4.3-11.1) K/mcL RBC (3.82-4.97) M/mcL Hgb (11.5-15.4) g/dL Hct (35.3-44.9) % MCV (83.0-100.0) fL MCH (28.0-33.3) pg MCHC (31.6-35.5) g/dL RDW (11.5-14.5) % Plt Count (140-400) K/mcL MPV (9.4-12.4) fL Immature Gran % (0-4) % Seg Neutrophils % % Lymphocytes % % Monocytes % % Eosinophils % % Basophils % % Neutrophils # (1.6-8.9) K/mcL Lymphocytes # (0.6-4.6) K/mcL Monocytes # (0.0-1.3) K/mcL Eosinophils # (0.0-0.6) K/mcL Basophils # (0.0-0.2) K/mcL Immature Plt Fraction (1.1-6.1) % PT (9.4-12.1) Seconds INR APTT (26.0-36.0) Seconds Sodium (136-145) mEq/L Potassium (3.5-4.5) mEq/L Chloride (98-109) mEq/L Carbon Dioxide (19-29) mEq/L BUN (7-20) mg/dL Creatinine (0.57-1.11) mg/dL Est GFR ( Amer) (> 60) Est GFR (Non-Af Amer) (> 60) BUN/Creatinine Ratio (6-26) Glucose (70-99) mg/dL Calculated Osmolality (280-300) Lactic Acid (0.5-2.2) mmol/L Calcium (8.6-10.8) mg/dL Total Bilirubin (0.2-1.2) mg/dL Direct Bilirubin (0.0-0.5) mg/dL Indirect Bilirubin (0.0-1.2) mg/dL AST (5-34) Units/L ALT (0-55) Units/L Alkaline Phosphatase (38-126) Units/L Troponin I (0-0.03) ng/mL B-Natriuretic Peptide (0-100) pg/mL Serum Total Protein (6.0-8.3) g/dL Albumin (3.5-5.0) g/dL Globulin (2.4-3.5) g/dL Albumin/Globulin Ratio (1.1-2.2) Urine Color Yellow (Yellow) Urine Clarity Clear (Clear) Urine pH 6.0 (5.0-8.0) pH Units Ur Specific [place] 1.022 (1.010-1.025) Urine Protein 30 H (Neg-Trace) mg/dL Urine Glucose (UA) Normal (Normal) mg/dL Urine Ketones Negative (Negative) mg/dL Urine Blood Negative (Negative) Urine Nitrite Negative (Negative) Urine Bilirubin Negative (Negative) Urine Urobilinogen Normal (Normal) mg/dL Ur Leukocyte Esterase Negative (Negative) Urine Microscopic RBC 0-3 (0-3) per hpf Urine Microscopic WBC 0-3 (0-3) per hpf Ur Squamous Epith Cells Many H (None-Few) per lpf Urine Bacteria None Seen (None-Few) per hpf Hyaline Casts None Seen (None-Few) per lpf Ur Culture Indicated? NO (NO) - Radiology Data Radiology results reviewed: Yes I reviewed the patient's radiology results. - EKG Data EKG attestation: Yes I reviewed and interpreted this EKG. EKG shows normal: Reports: sinus rhythm, axis, intervals, QRS complexes, ST-T waves Rate: Reports: normal Rhythm: Reports: NSR [place]/QRS: Reports: normal When compared to previous EKG there are: no significant changes Interpretation: Reports: no acute changes, unchanged when compared to prior tracing (date) (Compared to 11/10/16) Critical Care Time Critical Care Time: Yes Total Critical Care Time: 45 Attestation: Independent of medical management and treatment in the emergency room
[2016-12-21] MEDS ORDERED: Furosemide 20 MG/2 ML VIAL IVP ONE (00:20)
--- NOTE | 2016-12-21 05:29 | Internal Med History&Physical ---
<KimberleeDanay Ann - Last Filed: 12/21/16 19:45> Date of Encounter: 12/21/16 Time of Encounter: 05:13 Assessment and Plan (1) AAA (abdominal aortic aneurysm) Current visit: No Status: Acute previously 4.9cm todays CT shows 5.1 within 1.5months continue BB stattin, asa, plavix vascular surgery consult follows with Dr. Guzman control pain lasix ECHO mg and K NPO repeat labs Qualifiers: Presence of rupture: without rupture Qualified Code(s): I71.4 - Abdominal aortic aneurysm, without rupture (2) Abdominal pain Current visit: Yes Status: Acute expanding AAA vs pancreatitis check lipase Qualifiers: Abdominal location: epigastric Qualified Code(s): R10.13 - Epigastric pain (3) SOB (shortness of breath) Current visit: Yes Status: Acute O2 prn goal sat>90 bronchodilators (4) Congestive heart failure Current visit: Yes Status: Acute CXR evident for pulm vascular congestion continue homes meds Qualifiers: Congestive heart failure type: unspecified congestive heart failure type Congestive heart failure chronicity: acute on chronic Qualified Code(s): I50.9 - Heart failure, unspecified (5) Acute and chronic respiratory failure Current visit: No Status: Acute Qualifiers: Respiratory failure complication: hypoxia Qualified Code(s): J96.21 - Acute and chronic respiratory failure with hypoxia (6) Chest pain Current visit: No Status: Acute Qualifiers: Chest pain type: unspecified Qualified Code(s): R07.9 - Chest pain, unspecified (7) HTN (hypertension) Current visit: No Status: Chronic Qualifiers: Hypertension type: essential hypertension Qualified Code(s): I10 - Essential (primary) hypertension (8) CAD (coronary artery disease) Current visit: No Status: Chronic Qualifiers: Coronary Disease-Associated Artery/Lesion type: bypass graft [place] vs. transplanted heart: [place] heart Associated angina: without angina Qualified Code(s): I25.810 - Atherosclerosis of coronary artery bypass graft(s) without angina pectoris (9) BAILEY on CPAP Current visit: No Status: Chronic (10) Hyperglycemia Current visit: No Status: Acute (11) Hypoxia Current visit: No Status: Acute (12) CKD (chronic kidney disease) stage 3, GFR 30-59 ml/min Current visit: No Status: Chronic (13) Hyperkalemia Current visit: No Status: Acute (14) Depression Current visit: No Status: Acute Qualifiers: Depression Type: unspecified Qualified Code(s): F32.9 - Major depressive disorder, single episode, unspecified (15) Nausea Current visit: No Status: Resolved (16) Pleural effusion Current visit: No Status: Acute (17) History of mitral valve replacement with bioprosthetic valve Current visit: No Status: Chronic (18) Diabetes Current visit: No Status: Acute Qualifiers: Diabetes mellitus type: other specified (including RM) Diabetes mellitus complication status: with unspecified complications Diabetes mellitus half-way insulin use: unspecified half-way insulin use status Qualified Code(s): E13.8 - Other specified diabetes mellitus with unspecified complications Internal Medicine - H&P: HPI Chief complaint: abdominal pain Admitted From: Home Plans for Post Hospital Care: Home History of present illness: Ms. Florez is a 76 year old female abdominal pain. PMHx AAA, CAD, CHF, mitral valce stenosis requiring replacement, CABGx2. c/o abdominal pain and SOB which started about two weeks ago and has been progressively getting worse and has been very sever the past few days. Pt states abdominal pain is generalized over abdomen but most severe in epigastic region. Pt describes it as 10/10 sharp tearing pain that goes through to her back and is associated with some discomfort as well. Pain is not constant, comes on randomly at different time and does not seem to be associated with any thing in particular. Pt states she has also had dyspnea above her baseline, with exertion it is worse, improved but still present at rest and has a dry cough with it. Pt sleeps with BiPAP machine which does help her dyspnea, does not usually wear O2 throughout the day. She states that she had low O2 saturations and has been using supplemental oxygen for the past few days. and was placed on oxygen at that time, this has helped her breathing. Pt follow with vascular surgery for monitoring of her AAA. Pt confirms nausea without vomiting. Pt denies current CP, abdominal pain, nausea, SOB while resting in bed. Denies recent change in medication, trauma, weight gain, headache, fever, chills, hemoptysis, productive cough, V/D/C, blood in urine. Past Med Surg Social Fam HX - Past Medical History Medical history: aortic aneurysm, arthritis, coronary artery disease, diabetes, myocardial infarction Psychiatric history: anxiety, depression - Past Surgical History Surgical History: appendectomy, cholecystectomy, colectomy, coronary bypass ( CABG), heart valve replacement, hysterectomy, knee replacement, other, pacemaker - Social History Smoking Status: Never smoker Smokeless Tobacco Status: No Alcohol use: none Drug use: none Current living situation: Home Activity Level: Independent ambulation - Family History Father Living Status: Age at : 68 Cause of : ruptured aneurysm Hx Family Cardiac Disorders: Yes (aortic aneurysm) Mother Living Status: Age at : 96 Hx Family Cardiac Disorders: Yes Hx Family Respiratory Disorders: Yes (COPD) Hx Family Cancer: Yes (Colon.) Hx Family GI Disorders: No Hx Family Endocrine Disorder: No Hx Family Neuromuscular Disorders: No Hx Family Neurologic Disorders: No Hx Family HEENT Disorders: No Hx Family Autoimmune Disorders: No Internal Medicine - H&P: Meds Aspirin 81 mg PO DAILY 02/07/16 [History] Clopidogrel [Plavix] 75 mg PO DAILY 02/07/16 [History] Metoprolol XL (24 HR) Succ [Toprol Xl] 100 mg PO DAILY 08/21/16 [History] Insulin Glargine,Hum.rec.anlog [Lantus Solostar] 25 unit SQ DAILY 30 Days [Rx] Albuterol Sulfate [Albuterol Inhaler] 2 puff IH Q4HR PRN 10/01/16 [History] Furosemide [Lasix] 40 mg PO DAILY PRN 10/01/16 [History] Insulin LISPRO [HumaLOG] 2 - 12 units SQ TIDAC 11/11/16 [History] Ipratropium/Albuterol Neb [Duoneb] 3 ml IH Q6HR PRN 11/11/16 [History] Lactose-Reduced Food [Boost] 237 ml PO DAILY 12/21/16 [History] Mv-Min/Vit C/Glut/[place] AC/Hc124 [Airborne Tablet Chewable] 1 tab PO DAILY [History] Allergies codeine Allergy (Verified 10/01/16 13:46) See Comments "GOES INTO COMA" acetaminophen [From Darvocet-N] Adverse Reaction (Verified 11/11/16 14:38) Nausea morphine Adverse Reaction (Verified 11/11/16 14:38) Nausea propoxyphene [From Darvocet-N] Adverse Reaction (Verified 11/11/16 14:38) Nausea All Systems PM: A 10-system review of systems was performed and is negative for pertinent findings except as documented above in the HPI. - Constitutional Constitutional: no chills, no fever(s), no night sweats - EENT Eyes: no change in vision, no discharge, no pain, no photophobia - Cardiovascular Cardiovascular ROS IM: chest pain, no edema, no lightheadedness, no syncope - Respiratory Respiratory: cough, dyspnea, dyspnea on exertion, no hemoptysis, no pain on inspiration, no chest congestion, no excessive phlegm production, no change in phlegm color - Gastrointestinal Gastrointestinal: abdominal pain, nausea, no change in bowel habits, no change in stool character, no constipation, no diarrhea, no hematemesis, no hematochezia, no vomiting - Genitourinary Genitourinary: no change in urinary stream, no dysuria, no flank pain, no hematuria - Musculoskeletal Musculoskeletal ROS IM: no numbness, no tingling - Integumentary Integumentary IM: no rash, no unusual bruising - Neurological Neurological ROS: no focal weakness, no numbness, no tingling, no tremor(s) - Constitutional Vitals: Temp Pulse Resp BP Pulse Ox 97.4 F L 63 16 100/64 96 12/21/16 04:53 12/21/16 04:53 12/21/16 04:53 12/21/16 04:53 12/21/16 04:53 General appearance: Present: A&O X 3, pleasant, answers questions appropriately - Head Head exam: Present: atraumatic, normocephalic - Eye Eye exam: Present: PERRL, conjuntiva pink, sclera anicteric Pupils: Present: PERRL - Neck Neck exam general surgery: Present: supple, trachea midline. Absent: lymphadenopathy - Respiratory Respiratory exam: Present: decreased breath sounds, rales (fine crackels near base). Absent: accessory muscle use, chest wall tenderness, respiratory distress, rhonchi, wheezes - Cardiovascular Cardiovascular exam: Present: RRR, +S1, +S2. Absent: diastolic murmur, gallop, rubs, systolic murmur - GI/Abdominal GI/Abdominal exam: Present: normal bowel sounds, tenderness (most at epigatric, minimal generalized ttp), no peritoneal signs. Absent: distended, pulsatile mass, rebound, rigid, soft - Extremities Exam Extremities exam: Present: normal capillary refill, warm, radial pulses palpable and symetrical. Absent: calf tenderness, cyanotic, pedal edema - Neurological Exam Neurological exam: Present: CN II-XII intact, oriented X3, no focal deficits. Absent: pronater drift, facial droop, speech deficit - Skin Skin exam: Present: warm. Absent: cyanosis Internal Med - H&P Results - Labs CBC & Chem 7: 12/21/16 06:23 12/21/16 06:23 <ClaritzaJaikamaljit R - Last Filed: 12/21/16 19:53> Internal Medicine - H&P: HPI History of present illness: Ms. Florez is a 76 year old female All Systems PM: A 10-system review of systems was performed and is negative for pertinent findings except as documented above in the HPI. - Constitutional Vitals: Temp Pulse Resp BP Pulse Ox 98.0 F 71 15 116/81 97 12/21/16 19:33 12/21/16 19:33 12/21/16 19:33 12/21/16 19:33 12/21/16 19:33 Internal Med - H&P Results - Labs CBC & Chem 7: 12/21/16 06:23 12/21/16 06:23 Labs: Short CBC 12/21/16 Range/Units 06:23 WBC 8.7 (4.3-11.1) K/mcL Hgb 11.9 (11.5-15.4) g/dL Hct 37.7 (35.3-44.9) % Plt Count 244 (140-400) K/mcL BMP 12/21/16 06:23 Sodium 140 Potassium 4.4 Chloride 108 Carbon Dioxide 22 BUN 24 H Creatinine 1.03 Glucose 242 H Calcium 9.6 - Impressions ITS Impressions Abdomen Ultrasound 12/21/16 17:00 IMPRESSION: 1. Post cholecystectomy changes. 2. No acute abnormality identified within the right upper quadrant. D/ / 12/21/2016 17:45:52 Thaddeus Bello MD / jigna Interpreting Provider: Thaddeus Bello MD - Attending Attestation I performed history and physical examination of the patient and discussed his management with the Resident/General Repairer. I reviewed the residents note and agree with the documented findings and plan of care, with additions as below. 76 Y/F with h/o CAD s/p CABG; mitral valve replacement and AAA (4.9 cm in Oct 2016); s/p cholecystectomy, appendectomy, hysterectomy. She presents with 2 week h/o epigastric/upper abdominal pain, which was initially intermittent and now is continuous. Pain radiating to the back. She was evaluated in the ER and was noted to have pulmonary vascular congestion; imaging showed abdominal aortic aneurysm (5.1 cm). She was given Lasix 20 mg IV in the ER. O/E: Abdomen soft and non tender. Lipase normal. A/P: Emperically treat with pantoprazole. Vascular surgery consult for AAA, which is increasing in size (I personally discussed with Dr Guzman, who will evaluate the pt). Consider GI consult.
[2016-12-21 06:32] LABS: Hematocrit 37.7 % (35.3-44.9); Hemoglobin 11.9 g/dL (11.5-15.4); Mean Corpuscular HGB Conc 31.6 g/dL (31.6-35.5); Mean Corpuscular Hemoglobin 28.9 pg (28.0-33.3); Mean Corpuscular Volume 91.5 fL (83.0-100.0); Platelet Count 244 K/mcL (140-400); Red Blood Count 4.12 M/mcL (3.82-4.97); Red Cell Distribution Width 14.7 % (11.5-14.5)
[2016-12-21 07:02] LABS: BUN/Creatinine Ratio 23 (6-26); Blood Urea Nitrogen 24 mg/dL (7-20); Calcium 9.6 mg/dL (8.6-10.8); Carbon Dioxide 22 mEq/L (19-29); Chloride 108 mEq/L (98-109); Glucose 242 mg/dL (70-99); Lipase 20 Units/L (8-78); Osmolality,Calculated 302 (280-300); Potassium 4.4 mEq/L (3.5-4.5); Sodium 140 mEq/L (136-145); eGFR For African Americans > 60 (> 60); eGFR For Non-African Americans 52 (> 60)
[2016-12-21] MEDS ORDERED: Furosemide 40 MG TABLET PO PRN (08:03)
[2016-12-21] MEDS ORDERED: Dextrose Gel 15 GM PO PRN ×2 (08:04)
[2016-12-21] MEDS ORDERED: *HR* Dextrose 50 % in Water (Syg) 50 ML SYRINGE IVP PRN (08:04)
[2016-12-21] MEDS ORDERED: Ondansetron 4 MG/2 ML VIAL IVP PRN (08:07)
[2016-12-21] MEDS: Ipratropium/Albuterol Neb 3 ML IH SCH ×3 (08:47→21:45)
[2016-12-21] MEDS: Aspirin 81 MG TAB.CHEW PO SCH (09:53)
[2016-12-21] MEDS: Metoprolol XL (24 HR) Succ 50 MG TAB.ER.24H PO SCH (09:53)
[2016-12-21] MEDS: Insulin LISPRO 300 UNITS/3 ML VIAL SQ SCH ×4 (10:16→20:45)
[2016-12-21] MEDS: Pantoprazole 40 MG VIAL IVP SCH ×2 (11:11→18:10)
--- NOTE | 2016-12-21 12:27 | Gastroenterology Progress Note ---
Date of Encounter: 12/21/16 Time of Encounter: 12:00 - Assessment and plan (1) Upper abdominal pain Current Visit: Yes Status: Acute Assessment and plan: Skyla the right upper quadrant abdominal pain for the last 2 weeks. Gallbladder is already out. Pain is being relieved with aspirin. Has history of stone removed from the CBD. Recommendation: EGD to rule out PUD. If EGD negative then mRCP to r/o CBD stone recurrence - Time Spent With Patient Total time spent is greater than 50% in coordination of care (as documented) at patient's floor/unit and/or counseling patient: - Subjective Interval history: Patient 76-year-old white female is seen because of the right upper quadrant pain. Per patient she is having this pain for the last 2 weeks. Relationship with food but pain is being relieved with the taking aspirin. Patient did have CT of the abdomen and pelvis along with CT of the chest and and did show abdominal aortic aneurysm .patient has been seen by vascular surgeon who recommended a GI input for possible EGD. Per The patient gallbladder has been out since she was 24-year-old and about 10-15 years ago she had many stones removed from her bile duct. Per The patient pain this time does not sound like her GB or her CBD stone pain ROS: GI: as per [facility]: Has been running some fever along with chills and also having URI symptoms for the last couple of days EYES: denies yellow discoloration ENT: denies pain with swallowing or difficulty swallowing CARDIO: denies chest pain, palpitations RESP: Does have some URI symptoms as described above : denies change in color of urine DERM: denies any yellow discoration PSYCH: denies history of: depression or anxiety - Constitutional Vitals: Temp Pulse Resp BP Pulse Ox 98.0 F 67 18 116/71 98 12/21/16 11:05 12/21/16 11:05 12/21/16 11:05 12/21/16 11:05 12/21/16 11:05 - Head Head exam: Present: atraumatic - Eye Eye exam: Present: sclera anicteric - Neck Neck exam general surgery: Present: supple - Respiratory Additional comments: Bilateral basal crackles - Cardiovascular Cardiovascular exam: Present: +S1, +S2 - GI/Abdominal GI/Abdominal exam: Present: soft Additional comments: Right upper surgical scar of her Cholcystectomy and lower midline surgical scar. Does has focal tenderness in the right upper quadrant - Extremities Exam Extremities exam: Present: full ROM, warm - Neurological Exam Neurological exam: Present: alert, oriented X3 - Skin Skin exam: Present: dry, warm Results - Labs CBC & Chem 7: 12/21/16 06:23 12/21/16 06:23 Labs: Last Result Calcium 9.6 mg/dL (8.6-10.8) 12/21/16 06:23 Troponin I 0.01 ng/mL (0-0.03) 12/20/16 20:47 Entire Visit Hgb 11.9 g/dL (11.5-15.4) 12/21/16 06:23 Hct 37.7 % (35.3-44.9) 12/21/16 06:23 PT 11.0 Seconds (9.4-12.1) 12/20/16 20:47 Total Bilirubin 0.6 mg/dL (0.2-1.2) 12/20/16 20:47 AST 14 Units/L (5-34) 12/20/16 20:47 ALT 17 Units/L (0-55) 12/20/16 20:47 Lipase 20 Units/L (8-78) 12/21/16 06:23 - ABG ABG results: PT/INR, D-dimer PT 11.0 Seconds (9.4-12.1) 12/20/16 20:47 Consult Discharge Plan - Plan Referrals: Bud Norman MD [Partnered Physician] - 12/24/16 9:30 am
--- NOTE | 2016-12-21 12:41 | Event Note ---
Date of Encounter: 12/21/16 Time of Encounter: 09:00 Patient seen and examined. On examination, patient is sitting upright in bed talking on the phone. Patient complaining of epigastric and right upper quadrant abdominal pain. She also states that the top portion of her abdomen is so distended that it is starting to "push up my lungs and I cannot take a deep breath." She states her abdomen is been distended progressively worsened over the past month. On examination, fair to good aeration throughout with rhonchi noted to left posterior lung field. Urinalysis negative. Chest x-ray consistent with mild fluid overload. Chest CTA unremarkable for acute processes. Regarding her AAA, it is unclear whether this is changed in size and Dr. Wade has been brought on board though this is unlikely to be the cause of her pain. Do not have a source at this time for her epigastric pain. She states her gallbladder was taken out when she was 24 years old and states that since that time, she has had bouts with gallstones in the ducts. LFTs unremarkable. Bilirubin normal. GI also brought on board for possible EGD. Right upper quadrant abdominal sound ordered. Patient currently complains of shortness of breath above her norm stating she is unable to take deep breaths. She is on 2-3 L per nasal cannula as needed at home and is currently tolerating 2 L. Echocardiogram pending. Patient also states that after her open heart surgery 7-8 years ago, she developed a rather large hernia to her RUQ abdominal area and states she has a large mesh patch still in place. ITS Impressions Chest X-Ray 12/20/16 20:19 IMPRESSION: Findings suggest congestive heart failure D/ / Hank Espinal MD / Hank Espinal MD Interpreting Provider: Hank Espinal MD Abdomen/Pelvis/Chest CTA 12/20/16 20:20 IMPRESSION: 1. No acute abnormality in the chest, abdomen, or pelvis. 2. Fusiform infrarenal abdominal aortic aneurysm measuring approximately 5.1 cm in maximal diameter unchanged from 11/10/2016. See recommendations below. 3. Chronic unchanged loculated small right pleural effusion. Bibasilar airspace opacities compatible atelectasis versus infiltrates. Managing Abdominal Aortic Aneurysms 4.5-5.4 cm: 6 month follow up. Recommend vascular consultation. Greater than or equal to 5.5 cm: Referral to vascular surgeon. Reference: Malorie et al. The care of patients with an abdominal aortic aneurysm: The Society of Vascular Surgery practice guidelines. Journal of Vascular Surgery. Vol 50, Number 85. Rodrigo et al. Managing Incidental Findings on Abdominal and Pelvic CT and MRI, Part 2: White Paper of the ACR Incidental Findings Committee II on Vascular Findings. J Am Morgan Radiol 2013;10:789-794 D/ / Po Baker MD / Po Baker MD Interpreting Provider: Po Baker MD
[2016-12-21] MEDS ORDERED: Tetracaine/Benzocaine/Butamben 200MG/SPRAY (100SPY/BOT) MM ONE (12:46)
[2016-12-21] MEDS ORDERED: Simethicone 40 MG/0.6 ML MLS IR ONE (12:46)
[2016-12-21] MEDS ORDERED: *HR* FentaNYL (PF) 100 MCG/2 ML VIAL ONE (12:53)
[2016-12-21] MEDS ORDERED: *HR* Midazolam HCl 5 MG/5 ML VIAL IVP ONE (12:53)
[2016-12-21] MEDS ORDERED: 0.9 % Sodium Chloride 500 ML IVC SCH (13:00)
[2016-12-21] MEDS: *HR* FentaNYL (PF) 100 MCG/2 ML VIAL IVP PRN ×2 (13:02→13:04)
[2016-12-21] MEDS: *HR* Midazolam HCl 5 MG/5 ML VIAL IVP PRN ×2 (13:02→13:04)
--- NOTE | 2016-12-21 13:49 | Vascular/Endovasc Consult Note ---
Date of Encounter: 12/21/16 Time of Encounter: 11:30 Assessment and Plan (1) Abdominal aortic aneurysm Current Visit: No Status: Chronic By history and physical exam and my personal review of the CT scan from October and the CT scan performed last night I see no significant issues with expansion or leaking or bleeding of the abdominal aortic aneurysm. The abdominal pain is not related to the aneurysm. The patient may proceed with workup for this pain and be discharged per the medical service. The patient is already scheduled follow-up with me in April 2017 with follow-up CT angiogram of the abdomen and pelvis and clinic visit. I reviewed again with the patient and her the natural history of abdominal aortic aneurysms. We discussed potential indications for operation and also the importance of the follow-up exam in the size measurement of the aneurysm. Qualifiers: Presence of rupture: without rupture Qualified Code(s): I71.4 - Abdominal aortic aneurysm, without rupture (2) SOB (shortness of breath) Current Visit: Yes Status: Acute Patient's shortness of breath is improved with hospitalization and diuresis and oxygen. (3) Abdominal pain Current Visit: Yes Status: Acute Patient's abdominal pain has improved with medical treatment. I do not interpret her pain as being secondary to the aneurysm. Qualifiers: Abdominal location: epigastric Qualified Code(s): R10.13 - Epigastric pain - History of Present Illness Consult date: 12/21/16 Consult reason: Abdominal pain and history of abdominal aortic aneurysm Chief complaint: Shortness of breath and upper abdominal distention History of present illness: Ms. Florez is a 76 year old female Was admitted yesterday for shortness of breath and upper abdominal distention and upper abdominal pain. This process had been ongoing for about 2 weeks though worse in the last 2-3 days. She also described a burning or tearing type sensation as well. Because of her known history of aortic disease she underwent a CT angiogram via the emergency room last night. The patient was originally seen in consultation on November 11. At that time she was admitted for a pneumonia and multiple other concerns. A CT scan was obtained to evaluate her pulmonary status and at that time the previously unsuspected abdominal aortic aneurysm was uncovered. It was measured at 4.9 cm and this was done via a noncontrast CT scan. Patient does have a family history of aneurysm with her father having an abdominal aortic aneurysm. The CT scan performed last night via the emergency room was a CT angiogram. It measures the aneurysm to be 5.1 cm though there are no findings of dissection or leak or periaortic hematoma or edema. On my visit with the patient today she states that both her breathing is better and her abdominal discomfort is much improved. She also notes that her upper abdominal distention is improved. The patient has multiple concurrent medical problems. These include COPD that is oxygen dependent, coronary disease with previous NV and open heart bypass grafting 2 in 2007 and then a mitral valve replacement in 2008 and she is also status post a pacemaker placement in 2007. She has a history of diabetes. Past surgeries include the above-mentioned cardiac issues as well as an appendectomy , cholecystectomy, hysterectomy, partial colectomy, and total knee replacement. Past Med Surg Social Fam HX - Past Medical History Medical history: aortic aneurysm, arthritis, coronary artery disease, diabetes, myocardial infarction Psychiatric history: anxiety, depression - Past Surgical History Surgical History: appendectomy, cholecystectomy, colectomy, coronary bypass ( CABG), heart valve replacement, hysterectomy, knee replacement, other, pacemaker - Social History Smoking Status: Never smoker Smokeless Tobacco Status: No Alcohol use: none Drug use: none - Family History Father Living Status: Age at : 68 Cause of : ruptured aneurysm Hx Family Cardiac Disorders: Yes (aortic aneurysm) Mother Living Status: Age at : 96 Hx Family Cardiac Disorders: Yes Hx Family Respiratory Disorders: Yes (COPD) Hx Family Cancer: Yes (Colon.) Hx Family GI Disorders: No Hx Family Endocrine Disorder: No Hx Family Neuromuscular Disorders: No Hx Family Neurologic Disorders: No Hx Family HEENT Disorders: No Hx Family Autoimmune Disorders: No Medications and Allergies Aspirin 81 mg PO DAILY 02/07/16 [History] Clopidogrel [Plavix] 75 mg PO DAILY 02/07/16 [History] Metoprolol XL (24 HR) Succ [Toprol Xl] 100 mg PO DAILY 08/21/16 [History] Insulin Glargine,Hum.rec.anlog [Lantus Solostar] 25 unit SQ DAILY 30 Days [Rx] Albuterol Sulfate [Albuterol Inhaler] 2 puff IH Q4HR PRN 10/01/16 [History] Furosemide [Lasix] 40 mg PO DAILY PRN 10/01/16 [History] Insulin LISPRO [HumaLOG] 2 - 12 units SQ TIDAC 11/11/16 [History] Ipratropium/Albuterol Neb [Duoneb] 3 ml IH Q6HR PRN 11/11/16 [History] Lactose-Reduced Food [Boost] 237 ml PO DAILY 12/21/16 [History] Mv-Min/Vit C/Glut/[place] AC/Hc124 [Airborne Tablet Chewable] 1 tab PO DAILY [History] Allergies codeine Allergy (Verified 10/01/16 13:46) See Comments "GOES INTO COMA" acetaminophen [From Darvocet-N] Adverse Reaction (Verified 11/11/16 14:38) Nausea morphine Adverse Reaction (Verified 11/11/16 14:38) Nausea propoxyphene [From Darvocet-N] Adverse Reaction (Verified 11/11/16 14:38) Nausea All Systems Review: A 10-system review of systems was performed and is negative for pertinent findings except as documented above in the HPI. Exam Vital Signs, Last 4 Hours Temp Pulse Resp BP Pulse Ox 12/21/16 13:30 98.2 F 65 16 108/66 95 12/21/16 13:10 68 16 111/50 95 12/21/16 13:05 70 16 103/58 94 L 12/21/16 13:00 78 16 144/69 98 12/21/16 12:40 98.0 F 96 16 138/59 98 12/21/16 11:05 98.0 F 67 18 116/71 98 General: Present: Conversant, No Apparent Distress, Well developed, Well nourished, Other (Obese) HEENT: Present: Atraumatic, Normocephaly, Trachea midline Neck: Absent: JVD, Midline deformity, Tracheal deviation Cardiac: Present: Reg Rate and Rhythm, Other (2/6 systolic) Lungs: Present: Normal Breath Sounds Neuro: Present: Alert and responsive, No focal deficits noted Abdomen: Present: Soft, Non-tender, Other (There are no abdominal bruits. No pulsatile masses. There are no findings of periumbilical or flank ecchymoses.). Absent: Hepatosplenomegaly, Masses Consult Discharge Plan - Plan Referrals: Bud Norman MD [Partnered Physician] - 12/24/16 9:30 am Michael Guzman MD [Partnered Physician] - (Patient to keep the already scheduled appointment and CT angiogram appointment for follow-up with Dr. Guzman in April 2017.)
[2016-12-21] MEDS ORDERED: Perflutren Lipid Microsphere 1.3 ML in 0.9 % Sodium Chloride 8.7 ML IVP ONE (20:04)
[2016-12-21] MEDS: Insulin DETEMIR 100 UNIT/ML X5UNITS SQ SCH (20:37)
[2016-12-22] MEDS: Ipratropium/Albuterol Neb 3 ML IH SCH ×4 (04:00→21:54)
[2016-12-22 04:03] LABS: Hemoglobin A1C 7.2 %
[2016-12-22 04:18] LABS: Bilirubin,Indirect -0.1 mg/dL (0.0-1.2); Bilirubin,Total 0.3 mg/dL (0.2-1.2); Calcium 9.3 mg/dL (8.6-10.8)
[2016-12-22 04:35] LABS: Bilirubin,Direct 0.4 mg/dL (0.0-0.5)
[2016-12-22 04:37] LABS: Potassium 4.7 mEq/L (3.5-4.5)
[2016-12-22] MEDS: Pantoprazole 40 MG VIAL IVP SCH ×2 (04:58→18:21)
[2016-12-22] MEDS: Insulin LISPRO 300 UNITS/3 ML VIAL SQ SCH ×4 (07:37→20:03)
[2016-12-22] MEDS: Aspirin 81 MG TAB.CHEW PO SCH (08:14)
[2016-12-22] MEDS: Metoprolol XL (24 HR) Succ 50 MG TAB.ER.24H PO SCH (08:14)
--- NOTE | 2016-12-22 08:52 | ECHO - Doppler Report ---
Echo with Imaging Enhancement Agent Name: Delores Florez Date of Study: 12/21/2016 Date: 1940 Ht: 64.0 in Medical Record#: [id number] Age: 76 Wt: 211.0 lb Gender: Female BSA: 2 Order #: [id number] Location: [facility] Room #: 3B23 Reading Physician: Hank Sun MD, [facility] Exhibit Technician: Manda Muniz Ordering Physician: Noemy Jerry MD Primary Physician: Edgar Nguyen MD Indications: Congestive heart failure Impressions: Normal left ventricular systolic function, LVEF 60%. Moderate left ventricular diastolic dysfunction. Normal right ventricular size and function. A device lead was visualized in the right atrium and right ventricle. Bioprosthetic mitral valve with stable function. Mean gradient = 7 mmHg (unchanged from prior study on 07/23/16). Trace MR. Mild-moderate tricuspid regurgitation. Mild pulmonary hypertension. Estimated RVSP= 42 mmHg. Left Ventricular Wall Motion: Rest Echo Findings All wall segments showed normal motion. Findings: Study Quality * Suboptimal echo windows. Echo contrast was used. ECG Findings * Normal sinus rhythm. Left Ventricle * Normal left ventricular systolic function, LVEF 60%. * Normal LV chamber size and wall thickness. * Moderate left ventricular diastolic dysfunction. Right Ventricle * Normal right ventricular size and function. Device lead * A device lead was visualized in the right atrium and right ventricle. Left Atrium * Normal left atrial size. Right Atrium * Normal right atrial size. Aorta * Normally sized aortic root. Pericardium * There is no pericardial effusion present. IVC * The IVC is not well evaluated. Aortic Valve * Trileaflet aortic valve. * No aortic stenosis. * No aortic regurgitation. Mitral Valve * Bioprosthetic mitral valve with stable function. Mean gradient = 7 mmHg (unchanged from prior study on 07/23/16). Trace MR. Tricuspid Valve * Normal tricuspid valve structure. * No tricuspid stenosis. * Mild-moderate tricuspid regurgitation. * Mild pulmonary hypertension. Estimated RVSP= 42 mmHg. Pulmonic Valve * Pulmonic valve not well visualized. * No pulmonic stenosis. * Trace pulmonic regurgitation. History Hypertension Diabetes Hypercholesteremia Family History of CAD History of CAD/PTCA Myocardial Infarction Coronary Artery Bypass Graft Congestive Heart Failure Pacer/ICD Implant Valvular Disease Valve Replacement MV Prosthesis Biologic 12/19/2014 a Previous Echo was performed. Contrast: Definity 1.3 ml in 8.7 ml of saline 2 ml. Measurements: BP: 105/ 66 2D Normal Values RVIDd: 3.40 cm IVSd: 1.00 cm 0.6 - 1.0 cm LVIDd: 4.70 cm 3.7 - 5.6 cm LVPWd: 1.00 cm 0.6 - 1.1 cm LVIDs: 3.30 cm 1.5 - 3.6 cm AO: 3.20 cm < 4.0 cm LA volume: 52 Mitral Valve Peak Velocity 2.40 m/sec Peak Grad:23.00 mmHg Mean Grad:7.00 mmHg Tricuspid Valve TV Regurg Peak Grad: 37.00mmHg TV Regurg Peak Johnson: 3.04m/sec Updated by Hank Sun MD, [facility] on 12/22/2016 8:45:13 AM electronically signed on 12/22/2016 8:45:48 AM with status of Final Wall Motion Merritt: 1=Normal, 2=Hypokinesis, 3=Akinesis, 4=Dyskinesis, 5=Aneurysmal, 6=Hyperkinetic, X=Not Visualized (Blank)=Missing
--- NOTE | 2016-12-22 10:56 | Internal Med Progress Note ---
Date of Encounter: 12/22/16 Time of Encounter: 09:15 - Assessment and plan (1) Upper abdominal pain Current Visit: Yes Status: Acute Assessment and plan: Patient's main complaint today is her sinus pain and ear pain however she is here in the hospital for epigastric and right upper quadrant abdominal pain. Unclear etiology at this time. Patient has been cleared by vascular who surmised her AAA did not contribute to these symptoms. Right upper quadrant of ultrasound is negative. EGD revealing gastritis and the patient was started on a PPI. GI is on board and they also recommended an MRCP which is still pending. We will rule out CBD stones status post cholecystectomy. She is tolerating a regular diet, awaiting MRCP. ITS Impressions Abdomen/Pelvis CTA 12/20/16 20:20 IMPRESSION: 1. No acute abnormality in the chest, abdomen, or pelvis. 2. Fusiform infrarenal abdominal aortic aneurysm measuring approximately 5.1 cm in maximal diameter unchanged from 11/10/2016. See recommendations below. 3. Chronic unchanged loculated small right pleural effusion. Bibasilar airspace opacities compatible atelectasis versus infiltrates. Managing Abdominal Aortic Aneurysms 4.5-5.4 cm: 6 month follow up. Recommend vascular consultation. Greater than or equal to 5.5 cm: Referral to vascular surgeon. Reference: Malorie et al. The care of patients with an abdominal aortic aneurysm: The Society of Vascular Surgery practice guidelines. Journal of Vascular Surgery. Vol 50, Number 85. Rodrigo et al. Managing Incidental Findings on Abdominal and Pelvic CT and MRI, Part 2: White Paper of the ACR Incidental Findings Committee II on Vascular Findings. J Am Morgan Radiol 2013;10:789-794 D/ / Po Baker MD / Po Baker MD Interpreting Provider: Po Baker MD Abdomen Ultrasound 12/21/16 17:00 IMPRESSION: 1. Post cholecystectomy changes. 2. No acute abnormality identified within the right upper quadrant. D/ / 12/21/2016 17:45:52 Thaddeus Bello MD / jigna Interpreting Provider: Thaddeus Bello MD (2) URI (upper respiratory infection) Current Visit: Yes Status: Acute Assessment and plan: Patient with mild sore throat and otalgia with postnasal drip. Erythema noted to bilateral TMs no bulging. Throat appears normal on examination without erythema. She does have postnasal drip. We will treat symptomatically. (3) Otalgia Current Visit: Yes Status: Acute Assessment and plan: Mild erythema noted bilateral TMs. Landmarks visible. Postnasal drip also present and consistent with a URI. We will swab for flu as well (4) HTN (hypertension) Current Visit: No Status: Chronic Assessment and plan: Controlled with her home Toprol 100 mg daily, will trend Qualifiers: Hypertension type: essential hypertension Qualified Code(s): I10 - Essential (primary) hypertension (5) CAD (coronary artery disease) Current Visit: No Status: Chronic (6) BAILEY on CPAP Current Visit: No Status: Chronic (7) DVT prophylaxis Current Visit: No Status: Acute Assessment and plan: Subcutaneous heparin (8) Acute and chronic respiratory failure Current Visit: No Status: Chronic Assessment and plan: Patient stating she was a BiPAP while sleeping and oxygen at times as needed. She is currently on 2-3 L per nasal cannula however she currently denies shortness of breath above her norm. 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 Chest x-ray consistent with CHF. Patient had an echo that revealed ejection fraction of 60% with moderate diastolic dysfunction and mild to moderate TR and trace MR with mild pulmonary hypertension. She is currently euvolemic on examination and denies shortness of breath above her norm. Continue furosemide as needed (11) Hyperkalemia Current Visit: No Status: Acute Assessment and plan: Mild, stable, mild acute kidney injury overnight, we will trend (12) Depression Current Visit: No Status: Chronic Qualifiers: Depression Type: unspecified Qualified Code(s): F32.9 - Major depressive disorder, single episode, unspecified (13) Nausea Current Visit: No Status: Acute Assessment and plan: No vomiting. Still taking by mouth. We will add Phenergan as she states Zofran is ineffective (14) AAA (abdominal aortic aneurysm) Current Visit: No Status: Chronic Assessment and plan: Patient has been seen and cleared by vascular surgeon Dr. Guzman and she has an appointment with him upcoming in April for follow-up. Qualifiers: Presence of rupture: without rupture Qualified Code(s): I71.4 - Abdominal aortic aneurysm, without rupture (15) History of mitral valve replacement with bioprosthetic valve Current Visit: No Status: Chronic - Subjective Interval history: Patient seen and examined. On examination, patient sitting upright in bed watching television. Patient complains of sore throat, sinus pressure, and right ear pain. She states she continues to have to push down on her stomach to be over to breathe better stating that the top portion of her belly is still distended. Patient is tearful and crying stating that she is sick of being sick and wants to get better. Her main complaint at this time is sinus pressure and sore throat and any questions asked about her stomach will reverted back to sinus complaints. She is endorsing nausea that is not controlled with Zofran. She states she was able to eat a little bit of her breakfast without vomiting. - Constitutional Vitals: Temp Pulse Resp BP Pulse Ox 98.1 F 79 16 104/64 96 12/22/16 10:42 12/22/16 10:42 12/22/16 10:42 12/22/16 10:42 12/22/16 10:42 General appearance: Present: A&O X 3, pleasant, no acute distress, obese, answers questions appropriately - Head Head exam: Present: atraumatic, normocephalic - Eye Eye exam: Present: PERRL, conjuntiva pink, sclera anicteric Pupils: Present: PERRL - Expanded ENT Exam erythema: Bilateral TM Mouth exam: Present: normal external inspection. Absent: muffled voice - Neck Neck exam general surgery: Present: supple, trachea midline. Absent: lymphadenopathy - Respiratory Respiratory exam: Present: decreased breath sounds. Absent: accessory muscle use, rales, respiratory distress, rhonchi, wheezes - Cardiovascular Cardiovascular exam: Present: RRR, +S1, +S2. Absent: diastolic murmur, gallop, rubs, systolic murmur - GI/Abdominal GI/Abdominal exam: Present: distended (mildly), normal bowel sounds, soft, tenderness, no peritoneal signs - Extremities Exam Extremities exam: Present: warm, radial pulses palpable and symetrical. Absent : calf tenderness, cyanotic, pedal edema - Neurological Exam Neurological exam: Present: alert, CN II-XII intact, oriented X3, no focal deficits, strengths equal and symetr throughout. Absent: pronater drift, facial droop, speech deficit - Skin Skin exam: Present: dry, intact, pallor, warm Internal Medicine: Result - Labs CBC & Chem 7: 12/21/16 06:23 12/22/16 03:03 Labs: BMP 12/22/16 03:03 Sodium 141 Potassium 4.7 H Chloride 107 Carbon Dioxide 24 BUN 35 H D Creatinine 1.33 H Glucose 160 H Calcium 9.3 Liver Function 12/22/16 Range/Units 03:03 Total Bilirubin 0.3 (0.2-1.2) mg/dL Direct Bilirubin 0.4 (0.0-0.5) mg/dL - ABG Interpretation ABG results: PT/INR, D-dimer PT 11.0 Seconds (9.4-12.1) 12/20/16 20:47 - Impressions Impressions Abdomen Ultrasound 12/21/16 17:00 IMPRESSION: 1. Post cholecystectomy changes. 2. No acute abnormality identified within the right upper quadrant. D/ / 12/21/2016 17:45:52 Thaddeus Bello MD / jigna Interpreting Provider: Thaddeus Bello MD Consult Discharge Plan - Plan Referrals: Bud Norman MD [Partnered Physician] - 12/24/16 9:30 am Michael Guzman MD [Partnered Physician] - (Patient to keep the already scheduled appointment and CT angiogram appointment for follow-up with Dr. Guzman in April 2017.)
[2016-12-22] MEDS ORDERED: *HR* Promethazine 25 MG/ML VIAL IVP PRN (11:31)
[2016-12-22] MEDS: *HR* Heparin 5,000 UNIT/ML VIAL SQ SCH ×2 (12:16→18:18)
[2016-12-22] MEDS: Insulin DETEMIR 100 UNIT/ML X5UNITS SQ SCH (20:06)
[2016-12-23] MEDS: Ipratropium/Albuterol Neb 3 ML IH SCH ×5 (03:24→23:25)
[2016-12-23 04:58] LABS: BUN/Creatinine Ratio 23 (6-26); Blood Urea Nitrogen 24 mg/dL (7-20); Calcium 9.3 mg/dL (8.6-10.8); Carbon Dioxide 24 mEq/L (19-29); Chloride 106 mEq/L (98-109); Glucose 122 mg/dL (70-99); Osmolality,Calculated 295 (280-300); Potassium 4.1 mEq/L (3.5-4.5); Sodium 140 mEq/L (136-145); eGFR For African Americans > 60 (> 60); eGFR For Non-African Americans 51 (> 60)
[2016-12-23] MEDS: Pantoprazole 40 MG VIAL IVP SCH (05:40)
[2016-12-23] MEDS: *HR* Heparin 5,000 UNIT/ML VIAL SQ SCH ×2 (05:44→18:55)
--- NOTE | 2016-12-23 07:34 | Electrocardiograph Report ---
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
[2016-12-23] MEDS: Insulin LISPRO 300 UNITS/3 ML VIAL SQ SCH ×4 (07:53→20:06)
[2016-12-23] MEDS: Aspirin 81 MG TAB.CHEW PO SCH (07:53)
[2016-12-23] MEDS: Metoprolol XL (24 HR) Succ 50 MG TAB.ER.24H PO SCH (07:54)
[2016-12-23] MEDS ORDERED: Vancomycin 1,500 MG in D5% in Water 250 ML IVPB SCH (17:00)
[2016-12-23] MEDS ORDERED: Piperacillin/Tazobactam 3.375 GM in D5% in Water (Mini-Bag+) 100 ML IVPB SCH (17:00)
[2016-12-23] MEDS ORDERED: Ondansetron ODT 4 MG TAB.RAPDIS SL PRN (17:21)
--- NOTE | 2016-12-23 17:26 | Internal Med Progress Note ---
Date of Encounter: 12/23/16 Time of Encounter: 09:30 (and 1600) - Assessment and plan (1) Multifocal pneumonia Current Visit: Yes Status: Acute Assessment and plan: Patient presented with chief complaint of right upper quadrant and epigastric abdominal pain. During the first 2 days of her admission, she denied shortness of breath above her norm. Intra-abdominal acute processes have been ruled out and imaging of her abdomen revealed multifocal pneumonia slightly worsened from prior scans from her prior admission last month in October. Strongly suspect hospital-acquired, will treat with by mouth Augmentin, Zyvox, and Levaquin. Patient does not currently have IV access so we will attempt to treat orally. We will place power glide tomorrow if indicated. Patient was also admitted in August for pneumonia. She may very well need a bronchoscopy with BAL if clinically indicated. Sputum culture pending. ITS Impressions Chest X-Ray 12/20/16 20:19 IMPRESSION: Findings suggest congestive heart failure D/ / Hank Espinal MD / Hank Espinal MD Interpreting Provider: Hank Espinal MD Abdomen/Pelvis CTA 12/20/16 20:20 IMPRESSION: 1. No acute abnormality in the chest, abdomen, or pelvis. 2. Fusiform infrarenal abdominal aortic aneurysm measuring approximately 5.1 cm in maximal diameter unchanged from 11/10/2016. See recommendations below. 3. Chronic unchanged loculated small right pleural effusion. Bibasilar airspace opacities compatible atelectasis versus infiltrates. Managing Abdominal Aortic Aneurysms 4.5-5.4 cm: 6 month follow up. Recommend vascular consultation. Greater than or equal to 5.5 cm: Referral to vascular surgeon. Reference: Malorie et al. The care of patients with an abdominal aortic aneurysm: The Society of Vascular Surgery practice guidelines. Journal of Vascular Surgery. Vol 50, Number 85. Rodrigo et al. Managing Incidental Findings on Abdominal and Pelvic CT and MRI, Part 2: White Paper of the ACR Incidental Findings Committee II on Vascular Findings. J Am Morgan Radiol 2013;10:789-794 D/ / Po Baker MD / Po Baker MD Interpreting Provider: Po Baker MD Chest CTA 12/20/16 20:20 IMPRESSION: 1. No acute abnormality in the chest, abdomen, or pelvis. 2. Fusiform infrarenal abdominal aortic aneurysm measuring approximately 5.1 cm in maximal diameter unchanged from 11/10/2016. See recommendations below. 3. Chronic unchanged loculated small right pleural effusion. Bibasilar airspace opacities compatible atelectasis versus infiltrates. Managing Abdominal Aortic Aneurysms 4.5-5.4 cm: 6 month follow up. Recommend vascular consultation. Greatr than or equal to 5.5 cm: Referral to vascular surgeon. Reference: Malorie et al. The care of patients with an abdominal aortic aneurysm: The Society of Vascular Surgery practice guidelines. Journal of Vascular Surgery. Vol 50, Number 85. Rodrigo et al. Managing Incidental Findings on Abdominal and Pelvic CT and MRI, Part 2: White Paper of the ACR Incidental Findings Committee II on Vascular Findings. J Am Morgan Radiol 2013;10:789-794 D/ / Po Baker MD / Po Baker MD Interpreting Provider: Po Baker MD Abdomen Ultrasound 12/21/16 17:00 IMPRESSION: 1. Post cholecystectomy changes. 2. No acute abnormality identified within the right upper quadrant. D/ / 12/21/2016 17:45:52 Thaddeus Bello MD / jigna Interpreting Provider: Thaddeus Bello MD Abdomen/Pelvis CT 12/23/16 12:19 IMPRESSION: 1. No acute intra-abdominal intrapelvic process. 2. Stable large duodenal diverticulum. 3. Stable 4.9 cm infrarenal AAA. Further follow-up of this abnormality is as suggested below. 4. Patient status post cholecystectomy, appendectomy, hysterectomy. 5. Persistent small bilateral pleural effusions with bibasilar pneumonia. RECOMMENDATIONS: Managing Abdominal Aortic Aneurysms 4.5-5.4 cm: 6 month follow up. Recommend vascular consultation. Reference: Malorie et al. The care of patients with an abdominal aortic aneurysm: The Society of Vascular Surgery practice guidelines. Journal of Vascular Surgery. Vol 50, Number 85. Rodrigo et al. Managing Incidental Findings on Abdominal and Pelvic CT and MRI, Part 2: White Paper of the ACR Incidental Findings Committee II on Vascular Findings. J Am Morgan Radiol 2013;10:789-794 D/ / 12/23/2016 13:49:50 Jamar Phillips MD / nader Interpreting Provider: Jamar Phillips MD (2) Upper abdominal pain Current Visit: Yes Status: Acute Assessment and plan: Patient states her abdominal pain has subsided. Abdominal CT ordered an unremarkable for acute intra-abdominal processes. She is tolerating a regular diet. On examination, she continues to have mild tenderness to her right upper quadrant, exam otherwise unremarkable. Her remains concerned that her abdomen is still more distended than usual however no indication of a bowel obstruction or any other acute intra-abdominal processes at this time. 12/22/16 Patient's main complaint today is her sinus pain and ear pain however she is here in the hospital for epigastric and right upper quadrant abdominal pain. Unclear etiology at this time. Patient has been cleared by vascular who surmised her AAA did not contribute to these symptoms. Right upper quadrant of ultrasound is negative. EGD revealing gastritis and the patient was started on a PPI. GI is on board and they also recommended an MRCP which is still pending. We will rule out CBD stones status post cholecystectomy. She is tolerating a regular diet, awaiting MRCP. ITS Impressions Abdomen/Pelvis CTA 12/20/16 20:20 IMPRESSION: 1. No acute abnormality in the chest, abdomen, or pelvis. 2. Fusiform infrarenal abdominal aortic aneurysm measuring approximately 5.1 cm in maximal diameter unchanged from 11/10/2016. See recommendations below. 3. Chronic unchanged loculated small right pleural effusion. Bibasilar airspace opacities compatible atelectasis versus infiltrates. Managing Abdominal Aortic Aneurysms 4.5-5.4 cm: 6 month follow up. Recommend vascular consultation. Greater than or equal to 5.5 cm: Referral to vascular surgeon. Reference: Malorie et al. The care of patients with an abdominal aortic aneurysm: The Society of Vascular Surgery practice guidelines. Journal of Vascular Surgery. Vol 50, Number 85. Rodrigo et al. Managing Incidental Findings on Abdominal and Pelvic CT and MRI, Part 2: White Paper of the ACR Incidental Findings Committee II on Vascular Findings. J Am Morgan Radiol 2013;10:789-794 D/ / Po Baker MD / Po Baker MD Interpreting Provider: Po Baker MD Abdomen Ultrasound 12/21/16 17:00 IMPRESSION: 1. Post cholecystectomy changes. 2. No acute abnormality identified within the right upper quadrant. D/ / 12/21/2016 17:45:52 Thaddeus Bello MD / jigna Interpreting Provider: Thaddeus Bello MD (3) URI (upper respiratory infection) Current Visit: Yes Status: Acute Assessment and plan: Patient with mild sore throat and otalgia with postnasal drip. Erythema noted to bilateral TMs no bulging. Throat appears normal on examination without erythema. She does have postnasal drip. We will treat symptomatically. (4) Otalgia Current Visit: Yes Status: Acute Assessment and plan: Mild erythema noted bilateral TMs. Landmarks visible. Postnasal drip also present and consistent with a URI. Influenza swab negative. Continue Augmentin. (5) HTN (hypertension) Current Visit: No Status: Chronic Assessment and plan: Controlled with her home Toprol 100 mg daily, will trend Qualifiers: Hypertension type: essential hypertension Qualified Code(s): I10 - Essential (primary) hypertension (6) CAD (coronary artery disease) Current Visit: No Status: Chronic (7) BAILEY on CPAP Current Visit: No Status: Chronic (8) DVT prophylaxis Current Visit: No Status: Acute Assessment and plan: Subcutaneous heparin (9) Acute and chronic respiratory failure Current Visit: No Status: Chronic Assessment and plan: Patient stating she was a BiPAP while sleeping and oxygen at times as needed. She is currently on 2-3 L per nasal cannula. Now treating for multifocal pneumonia. Qualifiers: Respiratory failure complication: hypoxia Qualified Code(s): J96.21 - Acute and chronic respiratory failure with hypoxia (10) Type 2 diabetes mellitus Current Visit: No Status: Chronic Assessment and plan: Controlled all with an A1c of 7.2%, continue sliding scale while admitted Qualifiers: Diabetes mellitus complication status: with kidney complications Diabetes mellitus complication detail: with chronic kidney disease Diabetes mellitus usp insulin use: with usp use Chronic kidney disease stage: stage 3 (moderate) Qualified Code(s): E11.22 - Type 2 diabetes mellitus with diabetic chronic kidney disease; N18.3 - Chronic kidney disease, stage 3 ( moderate); Z79.4 - prison (current) use of insulin (11) Acute on chronic diastolic heart failure Current Visit: No Status: Acute Assessment and plan: Acute on chronic. Initial Chest x-ray consistent with CHF, however repeat imaging revealing multifocal pneumonia. Patient had an echo that revealed ejection fraction of 60% with moderate diastolic dysfunction and mild to moderate TR and trace MR with mild pulmonary hypertension. She is currently euvolemic on examination. No pedal edema. Continue furosemide as needed (12) Hyperkalemia Current Visit: No Status: Resolved (13) Depression Current Visit: No Status: Chronic Qualifiers: Depression Type: unspecified Qualified Code(s): F32.9 - Major depressive disorder, single episode, unspecified (14) Nausea Current Visit: No Status: Acute Assessment and plan: No vomiting. Still taking by mouth. We continue Zofran and if ineffective, Phenergan (15) AAA (abdominal aortic aneurysm) Current Visit: No Status: Chronic Assessment and plan: Patient has been seen and cleared by vascular surgeon Dr. Guzman and she has an appointment with him upcoming in April for follow-up. Qualifiers: Presence of rupture: without rupture Qualified Code(s): I71.4 - Abdominal aortic aneurysm, without rupture (16) History of mitral valve replacement with bioprosthetic valve Current Visit: No Status: Chronic - Subjective Interval history: Patient seen and examined earlier this morning. On examination this morning, patient alert and oriented 3 and states her abdomen no longer hurts but continues to complain of a sore throat. She also states that she attempted to go to the bathroom and became extremely short of breath, more so than usual. She states she is eating well. Patient then seen and reexamined after her imaging and upon reexamination, examination remained stable however she continued to complain of shortness of breath above her norm with any type of activity. - Constitutional Vitals: Temp Pulse Resp BP Pulse Ox 98.7 F 100 18 156/75 98 12/23/16 16:32 12/23/16 16:32 12/23/16 16:32 12/23/16 16:32 12/23/16 16:32 General appearance: Present: A&O X 3, pleasant, no acute distress, obese, answers questions appropriately - Head Head exam: Present: atraumatic, normocephalic - Eye Eye exam: Present: PERRL, conjuntiva pink, sclera anicteric Pupils: Present: PERRL - Neck Neck exam general surgery: Present: supple, trachea midline. Absent: lymphadenopathy - Respiratory Respiratory exam: Present: accessory muscle use, decreased breath sounds, prolonged expiratory phase, respiratory distress, rhonchi. Absent: rales, wheezes - Cardiovascular Cardiovascular exam: Present: RRR, +S1, +S2. Absent: diastolic murmur, gallop, rubs, systolic murmur - GI/Abdominal GI/Abdominal exam: Present: distended, normal bowel sounds, soft, tenderness ( mild RUQ), no peritoneal signs - Extremities Exam Extremities exam: Present: warm, radial pulses palpable and symetrical. Absent : calf tenderness, cyanotic, pedal edema - Neurological Exam Neurological exam: Present: alert, CN II-XII intact, oriented X3, no focal deficits, strengths equal and symetr throughout. Absent: pronater drift, facial droop, speech deficit - Skin Skin exam: Present: dry, intact, pallor, warm Internal Medicine: Result - Labs CBC & Chem 7: 12/21/16 06:23 12/23/16 04:03 Labs: BMP 12/23/16 04:03 Sodium 140 Potassium 4.1 Chloride 106 Carbon Dioxide 24 BUN 24 H D Creatinine 1.05 Glucose 122 H Calcium 9.3 - ABG Interpretation ABG results: PT/INR, D-dimer PT 11.0 Seconds (9.4-12.1) 12/20/16 20:47 - Impressions Impressions Abdomen/Pelvis CT 12/23/16 12:19 IMPRESSION: 1. No acute intra-abdominal intrapelvic process. 2. Stable large duodenal diverticulum. 3. Stable 4.9 cm infrarenal AAA. Further follow-up of this abnormality is as suggested below. 4. Patient status post cholecystectomy, appendectomy, hysterectomy. 5. Persistent small bilateral pleural effusions with bibasilar pneumonia. RECOMMENDATIONS: Managing Abdominal Aortic Aneurysms 4.5-5.4 cm: 6 month follow up. Recommend vascular consultation. Reference: Malorie et al. The care of patients with an abdominal aortic aneurysm: The Society of Vascular Surgery practice guidelines. Journal of Vascular Surgery. Vol 50, Number 85. Rodrigo et al. Managing Incidental Findings on Abdominal and Pelvic CT and MRI, Part 2: White Paper of the ACR Incidental Findings Committee II on Vascular Findings. J Am Morgan Radiol 2013;10:789-794 D/ / 12/23/2016 13:49:50 Jamar Phillips MD / bcarter Interpreting Provider: Jamar Phillips MD Consult Discharge Plan - Plan Referrals: Bud Norman MD [Partnered Physician] - 12/24/16 9:30 am Michael Guzman MD [Partnered Physician] - (Patient to keep the already scheduled appointment and CT angiogram appointment for follow-up with Dr. Guzman in April 2017.)
[2016-12-23] MEDS ORDERED: levoFLOXacin 750 MG TABLET PO SCH (17:30)
[2016-12-23] MEDS: Linezolid 600 MG TABLET PO SCH (20:11)
[2016-12-23] MEDS: Insulin DETEMIR 100 UNIT/ML X5UNITS SQ SCH (20:11)
[2016-12-24] MEDS: Ipratropium/Albuterol Neb 3 ML IH SCH ×6 (03:35→23:22)
[2016-12-24 05:03] LABS: Basophils % 0.5 %; Eosinophils # 0.2 K/mcL (0.0-0.6); Eosinophils % 2.6 %; Hematocrit 34.7 % (35.3-44.9); Hemoglobin 10.8 g/dL (11.5-15.4); Immature Granulocytes % 0.5 % (0-4); Lymphocytes # 0.9 K/mcL (0.6-4.6); Lymphocytes % 10.7 %; Mean Corpuscular HGB Conc 31.1 g/dL (31.6-35.5); Mean Corpuscular Hemoglobin 28.6 pg (28.0-33.3); Mean Platelet Volume 10.1 fL (9.4-12.4); Monocytes # 0.7 K/mcL (0.0-1.3); Neutrophils # 6.1 K/mcL (1.6-8.9); Platelet Count 250 K/mcL (140-400); Red Blood Count 3.77 M/mcL (3.82-4.97); Red Cell Distribution Width 14.9 % (11.5-14.5); Segmented Neutrophils % 76.7 %
[2016-12-24 05:19] LABS: BUN/Creatinine Ratio 16 (6-26); Blood Urea Nitrogen 16 mg/dL (7-20); Calcium 9.4 mg/dL (8.6-10.8); Carbon Dioxide 26 mEq/L (19-29); Chloride 105 mEq/L (98-109); Glucose 110 mg/dL (70-99); Osmolality,Calculated 292 (280-300); Potassium 4.6 mEq/L (3.5-4.5); Sodium 140 mEq/L (136-145); eGFR For African Americans > 60 (> 60); eGFR For Non-African Americans 56 (> 60)
[2016-12-24] MEDS: *HR* Heparin 5,000 UNIT/ML VIAL SQ SCH ×2 (06:25→17:19)
[2016-12-24] MEDS: Insulin LISPRO 300 UNITS/3 ML VIAL SQ SCH ×4 (07:51→20:39)
[2016-12-24] MEDS: Linezolid 600 MG TABLET PO SCH (09:05)
[2016-12-24] MEDS: Metoprolol XL (24 HR) Succ 50 MG TAB.ER.24H PO SCH (09:05)
[2016-12-24] MEDS: Aspirin 81 MG TAB.CHEW PO SCH (09:05)
--- NOTE | 2016-12-24 14:39 | Internal Med Progress Note ---
Date of Encounter: 12/24/16 Time of Encounter: 12:30 - Assessment and plan (1) Multifocal pneumonia Current Visit: Yes Status: Acute Assessment and plan: Patient presented with chief complaint of right upper quadrant and epigastric abdominal pain. During the first 2 days of her admission, she denied shortness of breath above her norm. Intra-abdominal acute processes have been ruled out and imaging of her abdomen incidentally revealed multifocal pneumonia slightly worsened from prior scans from her prior admission last month in October. Strongly suspect hospital-acquired, and treated with by mouth Augmentin, Zyvox, and Levaquin over the weekend as she lost IV access. She now has a powerglide. Preliminary sputum culture consistent with gram-positive cocci and gram- positive rods, will place her on Vanc and Zosyn and monitor. Continue pulmonary toilet and mucolytics. If she fails to improve, will consider pulmonology consult as she was also admitted in August for pneumonia and very well need a bronchoscopy with BAL if clinically indicated. In review of her chart, she was seen twice in August 2016 13 day admission and then 1 to day admission for bronchitis/restrictive lung disease. She was discharged on 10/05/16 after a 6 day admission for HCAP that included a pulmonology consult for possible empyema and decision to proceed with thoracentesis versus decortication. She was deemed not a candidate for procedure at that time and we proceeded with medical management with antibiotics. She was treated with cefepime and levofloxacin while admitted, and sent home on Levaquin. She was then discharged on 11/15/16 after another 6 day admission for again HCAP and she was again discharged on levofloxacin. ITS Impressions Chest X-Ray 12/20/16 20:19 IMPRESSION: Findings suggest congestive heart failure D/ / Hank Espinal MD / Hank Espinal MD Interpreting Provider: Hank Espinal MD Abdomen/Pelvis CTA 12/20/16 20:20 IMPRESSION: 1. No acute abnormality in the chest, abdomen, or pelvis. 2. Fusiform infrarenal abdominal aortic aneurysm measuring approximately 5.1 cm in maximal diameter unchanged from 11/10/2016. See recommendations below. 3. Chronic unchanged loculated small right pleural effusion. Bibasilar airspace opacities compatible atelectasis versus infiltrates. Managing Abdominal Aortic Aneurysms 4.5-5.4 cm: 6 month follow up. Recommend vascular consultation. Greater than or equal to 5.5 cm: Referral to vascular surgeon. Reference: Malorie et al. The care of patients with an abdominal aortic aneurysm: The Society of Vascular Surgery practice guidelines. Journal of Vascular Surgery. Vol 50, Number 85. Diannaosa et al. Managing Incidental Findings on Abdominal and Pelvic CT and MRI, Part 2: White Paper of the ACR Incidental Findings Committee II on Vascular Findings. J Am Morgan Radiol 2013;10:789-794 D/ / Po Baker MD / Po Baker MD Interpreting Provider: Po Baker MD Chest CTA 12/20/16 20:20 IMPRESSION: 1. No acute abnormality in the chest, abdomen, or pelvis. 2. Fusiform infrarenal abdominal aortic aneurysm measuring approximately 5.1 cm in maximal diameter unchanged from 11/10/2016. See recommendations below. 3. Chronic unchanged loculated small right pleural effusion. Bibasilar airspace opacities compatible atelectasis versus infiltrates. Managing Abdominal Aortic Aneurysms 4.5-5.4 cm: 6 month follow up. Recommend vascular consultation. Greatr than or equal to 5.5 cm: Referral to vascular surgeon. Reference: Malorie et al. The care of patients with an abdominal aortic aneurysm: The Society of Vascular Surgery practice guidelines. Journal of Vascular Surgery. Vol 50, Number 85. Diannaosa et al. Managing Incidental Findings on Abdominal and Pelvic CT and MRI, Part 2: White Paper of the ACR Incidental Findings Committee II on Vascular Findings. J Am Morgan Radiol 2013;10:789-794 D/ / Po Baker MD / Po Baker MD Interpreting Provider: Po Baker MD Abdomen Ultrasound 12/21/16 17:00 IMPRESSION: 1. Post cholecystectomy changes. 2. No acute abnormality identified within the right upper quadrant. D/ / 12/21/2016 17:45:52 Thaddeus Bello MD / jigna Interpreting Provider: Thaddeus Bello MD Abdomen/Pelvis CT 12/23/16 12:19 IMPRESSION: 1. No acute intra-abdominal intrapelvic process. 2. Stable large duodenal diverticulum. 3. Stable 4.9 cm infrarenal AAA. Further follow-up of this abnormality is as suggested below. 4. Patient status post cholecystectomy, appendectomy, hysterectomy. 5. Persistent small bilateral pleural effusions with bibasilar pneumonia. RECOMMENDATIONS: Managing Abdominal Aortic Aneurysms 4.5-5.4 cm: 6 month follow up. Recommend vascular consultation. Reference: Malorie et al. The care of patients with an abdominal aortic aneurysm: The Society of Vascular Surgery practice guidelines. Journal of Vascular Surgery. Vol 50, Number 85. Rodrigo et al. Managing Incidental Findings on Abdominal and Pelvic CT and MRI, Part 2: White Paper of the ACR Incidental Findings Committee II on Vascular Findings. J Am Morgan Radiol 2013;10:789-794 D/ / 12/23/2016 13:49:50 Jamar Phillips MD / bcabert Interpreting Provider: Jamar Phillips MD (2) Upper abdominal pain Current Visit: Yes Status: Ruled-out Assessment and plan: Patient states her abdominal pain has subsided. Abdominal CT ordered an unremarkable for acute intra-abdominal processes. She is tolerating a regular diet. On examination, she continues to have mild tenderness to her right upper quadrant, exam otherwise unremarkable. Her remains concerned that her abdomen is still more distended than usual however no indication of a bowel obstruction or any other acute intra-abdominal processes at this time. EGD also essentially unremarkable with mild gastritis and recommendation for PPI. Right upper quadrant ultrasound also benign. 12/22/16 Patient's main complaint today is her sinus pain and ear pain however she is here in the hospital for epigastric and right upper quadrant abdominal pain. Unclear etiology at this time. Patient has been cleared by vascular who surmised her AAA did not contribute to these symptoms. Right upper quadrant of ultrasound is negative. EGD revealing gastritis and the patient was started on a PPI. GI is on board and they also recommended an MRCP which is still pending. We will rule out CBD stones status post cholecystectomy. She is tolerating a regular diet, awaiting MRCP. ITS Impressions Abdomen/Pelvis CTA 12/20/16 20:20 IMPRESSION: 1. No acute abnormality in the chest, abdomen, or pelvis. 2. Fusiform infrarenal abdominal aortic aneurysm measuring approximately 5.1 cm in maximal diameter unchanged from 11/10/2016. See recommendations below. 3. Chronic unchanged loculated small right pleural effusion. Bibasilar airspace opacities compatible atelectasis versus infiltrates. Managing Abdominal Aortic Aneurysms 4.5-5.4 cm: 6 month follow up. Recommend vascular consultation. Greater than or equal to 5.5 cm: Referral to vascular surgeon. Reference: Malorie et al. The care of patients with an abdominal aortic aneurysm: The Society of Vascular Surgery practice guidelines. Journal of Vascular Surgery. Vol 50, Number 85. Rodrigo et al. Managing Incidental Findings on Abdominal and Pelvic CT and MRI, Part 2: White Paper of the ACR Incidental Findings Committee II on Vascular Findings. J Am Morgan Radiol 2013;10:789-794 D/ / Po Baker MD / Po Baker MD Interpreting Provider: Po Baker MD Abdomen Ultrasound 12/21/16 17:00 IMPRESSION: 1. Post cholecystectomy changes. 2. No acute abnormality identified within the right upper quadrant. D/ / 12/21/2016 17:45:52 Thaddeus Bello MD / jigna Interpreting Provider: Thaddeus Bello MD (3) URI (upper respiratory infection) Current Visit: Yes Status: Acute Assessment and plan: Patient with mild sore throat and otalgia with postnasal drip. Erythema noted to bilateral TMs no bulging. Throat appears normal on examination without erythema. She does have postnasal drip. We will treat symptomatically. (4) Otalgia Current Visit: Yes Status: Acute Assessment and plan: Mild erythema noted bilateral TMs. Landmarks visible. Postnasal drip also present and consistent with a URI. Influenza swab negative. Continue Augmentin. (5) HTN (hypertension) Current Visit: No Status: Chronic Assessment and plan: Controlled with her home Toprol 100 mg daily, will trend Qualifiers: Hypertension type: essential hypertension Qualified Code(s): I10 - Essential (primary) hypertension (6) CAD (coronary artery disease) Current Visit: No Status: Chronic (7) BAIELY on CPAP Current Visit: No Status: Chronic (8) DVT prophylaxis Current Visit: No Status: Acute Assessment and plan: Subcutaneous heparin (9) Acute and chronic respiratory failure Current Visit: No Status: Chronic Assessment and plan: Patient stating she was a BiPAP while sleeping and oxygen at times as needed. She is currently on 2-3 L per nasal cannula. Now treating for multifocal pneumonia. Qualifiers: Respiratory failure complication: hypoxia Qualified Code(s): J96.21 - Acute and chronic respiratory failure with hypoxia (10) Type 2 diabetes mellitus Current Visit: No Status: Chronic Assessment and plan: Controlled all with an A1c of 7.2%, continue sliding scale while admitted Qualifiers: Diabetes mellitus complication status: with kidney complications Diabetes mellitus complication detail: with chronic kidney disease Diabetes mellitus supervisor intermediates insulin use: with supervisor intermediates use Chronic kidney disease stage: stage 3 (moderate) Qualified Code(s): E11.22 - Type 2 diabetes mellitus with diabetic chronic kidney disease; N18.3 - Chronic kidney disease, stage 3 ( moderate); Z79.4 - prison (current) use of insulin (11) Acute on chronic diastolic heart failure Current Visit: No Status: Acute Assessment and plan: Acute on chronic. Initial Chest x-ray consistent with CHF, however repeat imaging revealing multifocal pneumonia. Patient had an echo that revealed ejection fraction of 60% with moderate diastolic dysfunction and mild to moderate TR and trace MR with mild pulmonary hypertension. She is currently euvolemic on examination. No pedal edema. Continue furosemide as needed (12) Hyperkalemia Current Visit: No Status: Acute Assessment and plan: Mild, stable, we will trend (13) Depression Current Visit: No Status: Chronic Qualifiers: Depression Type: unspecified Qualified Code(s): F32.9 - Major depressive disorder, single episode, unspecified (14) Nausea Current Visit: No Status: Acute Assessment and plan: No vomiting. Still taking by mouth. We continue Zofran and if ineffective, Phenergan (15) AAA (abdominal aortic aneurysm) Current Visit: No Status: Chronic Assessment and plan: Patient has been seen and cleared by vascular surgeon Dr. Guzman and she has an appointment with him upcoming in April for follow-up. Qualifiers: Presence of rupture: without rupture Qualified Code(s): I71.4 - Abdominal aortic aneurysm, without rupture (16) History of mitral valve replacement with bioprosthetic valve Current Visit: No Status: Chronic - Subjective Interval history: Patient seen and examined. On examination, patient is sitting upright in bed eating her lunch. Patient alert and oriented 3 and states she feels better today but not quite back to her baseline. She states her cough was productive until yesterday and states she was up most of the night coughing. She is endorsing a normal appetite. She states that she took a shower this morning and then when she got back to her chair, it took her quite a bit of time to catch her breath. She states she still feels very weak. - Constitutional Vitals: Temp Pulse Resp BP Pulse Ox 98.4 F 64 15 110/67 98 12/24/16 11:44 12/24/16 11:44 12/24/16 11:44 12/24/16 11:44 12/24/16 11:44 General appearance: Present: A&O X 3, pleasant, no acute distress, obese, answers questions appropriately - Head Head exam: Present: atraumatic, normocephalic - Eye Eye exam: Present: PERRL, conjuntiva pink, sclera anicteric Pupils: Present: PERRL - Neck Neck exam general surgery: Present: supple, trachea midline. Absent: lymphadenopathy - Respiratory Respiratory exam: Present: accessory muscle use, decreased breath sounds, prolonged expiratory phase, respiratory distress (mild), wheezes. Absent: rales , rhonchi - Cardiovascular Cardiovascular exam: Present: RRR, +S1, +S2. Absent: diastolic murmur, gallop, rubs, systolic murmur - GI/Abdominal GI/Abdominal exam: Present: normal bowel sounds, soft, no peritoneal signs. Absent: distended, tenderness - Extremities Exam Extremities exam: Present: warm, radial pulses palpable and symetrical. Absent : calf tenderness, cyanotic, pedal edema - Neurological Exam Neurological exam: Present: alert, CN II-XII intact, normal gait, oriented X3, no focal deficits, strengths equal and symetr throughout. Absent: pronater drift, facial droop, speech deficit - Skin Skin exam: Present: dry, intact, pallor, warm Internal Medicine: Result - Labs CBC & Chem 7: 12/24/16 03:53 12/24/16 03:53 Labs: Short CBC 12/24/16 Range/Units 03:53 WBC 8.0 (4.3-11.1) K/mcL Hgb 10.8 L (11.5-15.4) g/dL Hct 34.7 L (35.3-44.9) % Plt Count 250 (140-400) K/mcL Neutrophils # 6.1 (1.6-8.9) K/mcL BMP 12/24/16 03:53 Sodium 140 Potassium 4.6 H Chloride 105 Carbon Dioxide 26 BUN 16 Creatinine 0.97 Glucose 110 H Calcium 9.4 - ABG Interpretation ABG results: PT/INR, D-dimer PT 11.0 Seconds (9.4-12.1) 12/20/16 20:47 - Impressions Impressions Abdomen/Pelvis CT 12/23/16 12:19 IMPRESSION: 1. No acute intra-abdominal or intrapelvic process. 2. Stable large duodenal diverticulum. 3. Stable 4.9 cm infrarenal AAA. Further follow-up of this abnormality is as suggested below. 4. Patient status post cholecystectomy, appendectomy, and hysterectomy. 5. Persistent small bilateral pleural effusions with bibasilar pneumonia. RECOMMENDATIONS: Managing Abdominal Aortic Aneurysms 4.5-5.4 cm: 6 month follow up. Recommend vascular consultation. Reference: Malorie et al. The care of patients with an abdominal aortic aneurysm: The Society of Vascular Surgery practice guidelines. Journal of Vascular Surgery. Vol 50, Number 85. Rodrigo et al. Managing Incidental Findings on Abdominal and Pelvic CT and MRI, Part 2: White Paper of the ACR Incidental Findings Committee II on Vascular Findings. J Am Morgan Radiol 2013;10:789-794 D/ / 12/23/2016 13:49:50 Jamar Phillips MD / nader Interpreting Provider: Jamar Phillips MD Consult Discharge Plan - Plan Referrals: Michael Guzman MD [Partnered Physician] - (Patient to keep the already scheduled appointment and CT angiogram appointment for follow-up with Dr. Guzman in April 2017.) Alison Choudhury, TRENT [Advanced Practice Nurse] - 12/28/16 1:30 pm
[2016-12-24] MEDS ORDERED: Vancomycin 1,500 MG in D5% in Water 250 ML IVPB SCH ×2 (15:00→17:00)
[2016-12-24] MEDS: Piperacillin/Tazobactam 3.375 GM in D5% in Water (Mini-Bag+) 100 ML IVPB SCH ×2 (16:23→21:54)
[2016-12-24] MEDS: Insulin DETEMIR 100 UNIT/ML X5UNITS SQ SCH (20:39)
[2016-12-25] MEDS: Piperacillin/Tazobactam 3.375 GM in D5% in Water (Mini-Bag+) 100 ML IVPB SCH ×2 (03:46→09:16)
[2016-12-25] MEDS: Ipratropium/Albuterol Neb 3 ML IH SCH ×2 (04:14→08:05)
[2016-12-25] MEDS ORDERED: Chloraseptic Spray 177 ML BOTTLE MM PRN (04:16)
[2016-12-25] MEDS: *HR* Heparin 5,000 UNIT/ML VIAL SQ SCH (04:35)
[2016-12-25 07:33] VITALS: BP 127/84
[2016-12-25] MEDS: Insulin LISPRO 300 UNITS/3 ML VIAL SQ SCH (07:52)
[2016-12-25] MEDS: Aspirin 81 MG TAB.CHEW PO SCH (08:00)
[2016-12-25] MEDS: Metoprolol XL (24 HR) Succ 50 MG TAB.ER.24H PO SCH (08:01)
[2016-12-25] MEDS ORDERED: traMADol 50 MG TABLET PO PRN (08:32)
--- NOTE | 2016-12-25 09:27 | Discharge Summary ---
Date of Encounter: 12/25/16 Time of Encounter: 09:25 - Discharge Diagnosis (1) HCAP (healthcare-associated pneumonia) Priority: Primary Status: Acute Comments: Bibasilar pneumonia, history of gastric or pneumonia present upon admission (2) Abdominal aortic aneurysm (AAA) 3.0 cm to 5.0 cm in diameter in female Priority: Secondary Status: Chronic (3) HCAP (healthcare-associated pneumonia) Priority: Primary Status: Acute (4) Pleural effusion Priority: Primary Status: Acute (5) Diabetes Priority: Secondary Status: Acute Qualifiers: Diabetes mellitus type: other specified (including RM) Diabetes mellitus complication status: with unspecified complications Diabetes mellitus rat exterminator insulin use: unspecified assisted insulin use status Qualified Code(s): E13.8 - Other specified diabetes mellitus with unspecified complications (6) Congestive heart failure Priority: Secondary Status: Acute Comments: Ejection fraction of 60% with moderate left ventricular diastolic dysfunction Qualifiers: Congestive heart failure type: diastolic Congestive heart failure chronicity: acute on chronic Qualified Code(s): I50.33 - Acute on chronic diastolic (congestive) heart failure - Discharge Medications Home Medications: Aspirin 81 mg PO DAILY 02/07/16 [History] Clopidogrel [Plavix] 75 mg PO DAILY 02/07/16 [History] Metoprolol XL (24 HR) Succ [Toprol Xl] 100 mg PO DAILY 08/21/16 [History] Insulin Glargine,Hum.rec.anlog [Lantus Solostar] 25 unit SQ DAILY 30 Days [Rx] Albuterol Sulfate [Albuterol Inhaler] 2 puff IH Q4HR PRN 10/01/16 [History] Furosemide [Lasix] 40 mg PO DAILY PRN 10/01/16 [History] Insulin LISPRO [HumaLOG] 2 - 12 units SQ TIDAC 11/11/16 [History] Ipratropium/Albuterol Neb [Duoneb] 3 ml IH Q6HR PRN 11/11/16 [History] Lactose-Reduced Food [Boost] 237 ml PO DAILY 12/21/16 [History] Mv-Min/Vit C/Glut/[place] AC/Hc124 [Airborne Tablet Chewable] 1 tab PO DAILY [History] Allergies/Adverse Reactions: Allergies codeine Allergy (Verified 10/01/16 13:46) See Comments "GOES INTO COMA" acetaminophen [From Darvocet-N] Adverse Reaction (Verified 11/11/16 14:38) Nausea morphine Adverse Reaction (Verified 11/11/16 14:38) Nausea propoxyphene [From Darvocet-N] Adverse Reaction (Verified 11/11/16 14:38) Nausea Procedures/tests Complete & Pending: Procedures Performed prior 72 hours Category Date Time Status CT abd pelvis w iv no oral [CT] Routine Cat Scan 12/23/16 12:19 Completed Date of admission: 12/21/16 00:51 Primary care physician: Edgar Nguyen Jr, MD Consults: 12/21/16 06:06 Consult to Vascular Surgery [CONS] Stat Consulting Provider: Vascular Surgery Maya Reason for Consult: Increasing size of the abdominal aortic aneurysm Call Completed: No 12/21/16 10:42 Consult to Gastroenterology [CONS] Routine Consulting Provider: Gastroenterology Maya Reason for Consult: unexplained epigastric pain. lft's, lipase normal. s/p appendectomy, cholecystectomy. has AAA but unlike as the cause. EGD indicated? Time Notified: 10:43 Call Completed: Yes 12/24/16 08:07 Consult to Invasive Line Access Team [CONS] Routine Reason for Consult: difficult stick; needs IV atb's Line Type: Midline PICC line indications: Limited vascular access 12/24/16 14:38 Consult to Occupational Therapy [CONS] Routine Comment: Evaluate, develop and implement POC Consult to Physical Therapy [CONS] Routine Comment: Evaluate, develop and implement POC - Patient Status Disposition: Transfer Critical Access Hosp Condition: Fair - Discharge Instructions Follow Up With: Michael Guzman MD [Partnered Physician] - (Patient to keep the already scheduled appointment and CT angiogram appointment for follow-up with Dr. Guzman in April 2017.) Alison Choudhury CNP [Advanced Practice Nurse] - 12/28/16 1:30 pm Additional Instructions: May continue with vancomycin and Zosyn. Follow-up with pulmonary service at [place] - Diet and Activity Diet: diabetic diet Hospital course: Ms. Florez is a 76 year old female PMHx AAA, CAD, diastolic CHF, mitral valve stenosis required replacement, CABGx2. c/o abdominal pain and SOB which started about two weeks prior to her admission and has been progressively getting worse and has been very sever the past few days. Pt stated abdominal pain is generalized over abdomen but most severe in epigastic region. Pt described it as 10/10 sharp tearing pain that goes through to her back and is associated with some discomfort as well. Pain is not constant, comes on randomly at different time and does not seem to be associated with any thing in particular. Pt stated she had also had dyspnea above her baseline, with exertion it was worse, improved but still present at rest and has a dry cough with it. Pt sleeps with BiPAP machine which does help her dyspnea, does not usually wear O2 throughout the day. She states that she had low O2 saturations and has been using supplemental oxygen for the past few days. a During hospitalization the patient had a CT angiogram chest that showed a fusiform infrarenal abdominal aortic aneurysm measuring 5.1 cm. Vascular surgery was consulted and Dr. Guzman recommended outpatient follow up appointment in April. Because she was complaining of abdominal pain, a GI consult was placed and the patient underwent an endoscopy that showed possible gastritis. Echocardiogram showed an ejection fraction of 60% with moderate diastolic dysfunction. CT scan of the chest and abdomen showed also chronic unchanged loculated small right pleural effusions with bibasilar airspace opacities compatible with either atelectases versus infiltrates. The patient was started on antibiotics including Levaquin and Zyvox. She has had pneumonia multiple occasions since the beginning of this year. Yesterday, her antibiotics were switched to vancomycin and Zosyn. The patient says that she has pleuritic pain on the right side still is not feeling better. The patient requested to be transferred to [facility] - Time Spent with Patient Total time spent providing and/or coordinating discharge services: Greater than 30 minutes (40 minutes) - Constitutional Vitals: Temp Pulse Resp BP Pulse Ox 98.6 F 80 16 127/84 94 L 12/25/16 07:25 12/25/16 07:25 12/25/16 08:06 12/25/16 07:25 12/25/16 08:06 General appearance: Present: A&O X 3, pleasant, no acute distress, obese, answers questions appropriately - Head Head exam: Present: atraumatic, normocephalic - Eye Eye exam: Present: PERRL, conjuntiva pink, sclera anicteric Pupils: Present: PERRL - Neck Neck exam general surgery: Present: supple, trachea midline. Absent: lymphadenopathy - Respiratory Respiratory exam: Present: CTAB, rales (Bibasilar crackles). Absent: accessory muscle use, rhonchi, wheezes - Cardiovascular Cardiovascular exam: Present: RRR, +S1, +S2. Absent: diastolic murmur, gallop, rubs, systolic murmur - GI/Abdominal GI/Abdominal exam: Present: distended, normal bowel sounds, soft, no peritoneal signs. Absent: tenderness - Extremities Exam Extremities exam: Present: warm, radial pulses palpable and symetrical. Absent : calf tenderness, cyanotic, pedal edema - Neurological Exam Neurological exam: Present: CN II-XII intact, oriented X3, no focal deficits. Absent: pronater drift, facial droop, speech deficit - Skin Skin exam: Present: dry, intact
[2016-12-25] MEDS ORDERED: Furosemide 40 MG/4 ML VIAL IV SCH (09:45)
[2016-12-25] MEDS ORDERED: Aminoglycoside Consult 1 EACH MC ONE (10:59)
== END 2016-12-25 11:00 | disposition short-term general hospital (02) ==
LOC: EMEROO 20:04 → 3BNU 20:04 → SUATTDRO 12-21 00:51 → 3BNU 12-21 01:23
PROVIDERS: ADMIT Nurse Practitioner Family; ATTEND Internal Medicine
PROC: ENDOEBX (2016-12-21 12:10)

== ENCOUNTER 2017-07-16 06:20 | Observation (INO) ==
[2017-07-16] MEDS ORDERED: Dexamethasone 4 MG/ML VIAL ONE (06:34)
[2017-07-16] MEDS ORDERED: Ondansetron 4 MG/2 ML VIAL ONE (06:34)
[2017-07-16] MEDS ORDERED: *HR* Midazolam HCl 2 MG/2 ML VIAL ONE (06:34)
[2017-07-16] MEDS ORDERED: *HR* Rocuronium Bromide 50 MG/5 ML VIAL ONE (06:34)
[2017-07-16] MEDS ORDERED: *HR* Propofol 200 MG/20 ML VIAL IVP ONE (06:34)
[2017-07-16] MEDS ORDERED: *HR* FentaNYL (PF) 100 MCG/2 ML VIAL ONE (06:34)
[2017-07-16] MEDS ORDERED: Lidocaine -MPF 2% 2 ML VIAL ONE ×2 (06:34→08:18)
[2017-07-16] MEDS ORDERED: Neostigmine Methylsulfate 3 MG/3 ML SYRINGE ONE (06:34)
[2017-07-16] MEDS ORDERED: *HR* Succinylcholine 200 MG/10 ML VIAL IVP ONE (06:34)
[2017-07-16] MEDS ORDERED: Lidocaine -MPF 4% 5 ML AMPUL ONE (06:34)
[2017-07-16] MEDS ORDERED: Lidocaine -MPF 1% 2 ML VIAL ID ONE (06:44)
[2017-07-16] MEDS ORDERED: *HR* Phenylephrine 10 MG/ML VIAL ONE (06:44)
[2017-07-16] MEDS ORDERED: Vancomycin 1,500 MG in D5% in Water 250 ML IVPB ONE (06:44)
[2017-07-16] MEDS ORDERED: Plasma-Lyte A (PH 7.4) 1,000 ML IVC SCH (07:00)
[2017-07-16] MEDS ORDERED: *HR* Acetylcysteine 20% 600 MG/3 ML ORAL SYRINGE PO ONE ×2 (07:00→10:00)
[2017-07-16] MEDS ORDERED: Sodium Bicarbonate 150 MEQ in D5% in Water 1,000 ML IVC SCH (07:00)
--- NOTE | 2017-07-16 07:01 | Anesthesia Evaluation PreOp ---
Date of Encounter: 07/16/17 Time of Encounter: 06:50 - Past History Planned Operation: endovascular AAA repair Cardiac History: ID, HTN, Hyperlipidemia, Arrhythmia (tachy-rosa syndrome), Cardiac Stent (Patient had ID in 2007, 2 coronary stents placed. Later underwent emergency CABG. At that time had septal wall and mitral valve rupture. The septum and valve were repaired but patient was transferred to [facility] ultimately for replacement of mitral valve. She denies CHF.) Pulmonary History: Snore, Other (hx of recurrent pneumonia and bronchitis. Has prn O2 at home but rarely uses it.) INTERVENTIONAL PAIN PHYSICIAN History: Denies Any Significant HX, Other (Has some distal extremity paresthesias secondary to diabetes.) Other Medical History: Renal (Stage 3 renal insufficiency, never required dialysis.), Diabetes Type II, Other (obesity) Anesthesia History: Past Anesthesia (Hx of severe PONV) Alcohol Use: none Drug use: none Medications and Allergies Aspirin 81 mg PO DAILY 02/07/16 [History] Clopidogrel [Plavix] 75 mg PO DAILY 02/07/16 [History] Metoprolol XL (24 HR) Succ [Toprol Xl] 100 mg PO DAILY 08/21/16 [History] Insulin Glargine,Hum.rec.anlog [Lantus Solostar] 25 unit SQ DAILY 30 Days insuln.pen 09/14/16 [Rx] Furosemide [Lasix] 40 mg PO DAILY PRN 10/01/16 [History] Insulin LISPRO [HumaLOG] 2 - 12 units SQ TIDAC 11/11/16 [History] 3 Allergy/AdvReac Type Severity Reaction Status Date / Time codeine Allergy See Verified 10/01/16 13:46 Comments acetaminophen AdvReac Nausea Verified 11/11/16 14:38 [From Darvocet-N] morphine AdvReac Nausea Verified 11/11/16 14:38 propoxyphene AdvReac Nausea Verified 11/11/16 14:38 [From Darvocet-N] - Meds/Allergy Pre-op Review Medications Reviewed: Yes Allergies Reviewed: Yes Beta Blockers on Current Med List: Yes Anesthesia Results - Labs Laboratory Tests 12/22/16 07/12/17 07/12/17 03:03 11:15 11:15 WBC 6.2 Hgb 13.7 Hct 42.7 Plt Count 215 PT 9.6 INR 0.9 APTT 23.5 L Sodium Potassium Chloride Carbon Dioxide BUN Creatinine Hemoglobin A1c 7.2 H 07/12/17 11:15 WBC Hgb Hct Plt Count PT INR APTT Sodium 140 Potassium 4.3 Chloride 106 Carbon Dioxide 25 BUN 23 H Creatinine 1.23 H Hemoglobin A1c - Imaging EKG: report reviewed, image reviewed (ectopic atrial rhythm) Anesthesia Exam Selected Entries 07/16/17 06:44 Temperature 99.1 F Pulse Rate 92 Respiratory Rate 18 Blood Pressure 157/83 O2 Sat by Pulse Oximetry 95 Weight: 98 kg NPO (# of Hours): over 8 hours - HEENT Pupil (Motor): Pupils equal Mallampati: III Teeth: Prosthesis (no upper teeth.) Oral Opening: Greater than 3 - Cardiac Rhythm: Irregular Murmur: None - Pulmonary Breath Sounds: bilateral Clear Respiratory Effort: Symmetrical Anesthesia Assess/Plan ASA Score: 3 Modified [place] Scale for Level of Consciousness: Anixous, agitated or restless Anesthetic Plan: General Monitoring Plan: Standard Monitors, A-Line Recovery Plan: PACU
[2017-07-16] MEDS ORDERED: Heparin 1,000 UNITS/500 mL 500 ML ONE ×2 (07:14→10:38)
[2017-07-16] MEDS ORDERED: *HR* Remifentanil 2 MG VIAL IVP ONE (07:34)
[2017-07-16] MEDS ORDERED: EPHEDrine 50 MG/ML VIAL ONE (07:52)
[2017-07-16] MEDS ORDERED: *HR* Heparin 5,000 UNIT/ML VIAL ONE (07:55)
--- NOTE | 2017-07-16 08:00 | History & Physical Report ---
Date of Encounter: 07/16/17 Time of Encounter: 07:59 24 Hour HP Update - Instructions Instructions: If the History and Physical is less than 30 days old and was completed prior to A.M. admission and or procedure and has NOT been updated on calendar day of procedure please complete this update prior to performing procedure. - Update Patient reports changes in Medical Condition: No Changes in examination, assessment, or condition: No Changes in Medication: No Preop tests/diagnostics Reviewed: Yes Surgery Remains Indicated: Yes Consent for Planned Operative Procedure(s) Verified: Yes - Pre-Operative Checklist Preoperative Checklist Indicated: Yes Prophylactic Antibiotic Ordered: Yes Home Medications Include Beta Iris: Yes Beta Iris Taken Today (Day of Surgery): Yes Beta Iris Taken Yesterday (Day Prior to Surgery): Yes Is VTE Prophylaxis Indicated?: Yes
[2017-07-16] MEDS ORDERED: Heparin 1,000 UNITS/500 mL 1,000 ML ONE (08:35)
[2017-07-16] MEDS ORDERED: Lacri-Lube 3.5 GM TUBE ONE (09:05)
--- NOTE | 2017-07-16 09:43 | Anesthesia Procedures ---
Date of Encounter: 07/16/17 Time of Encounter: 08:15 Procedures: Anesthesia - Arterial Line Consent obtained: verbal consent Time out performed: Yes Sedation: Versed (mg): 2 (documented on anesthesia record) Supplemental Oxygen via Nasal Cannula (L/min): 12 (via FM) Local Anesthetic: Lidocaine 1% Amount of Anesthetic used (mls): 0.5 Size (Gauge): 20 Length (inches): 1 3/4 Technique Used: sterile prep, direct puncture technique Post-Procedure: line taped into place, dry sterile dressing placed Patient tolerated procedure: well, no complications Complications: none Site: Radial R Vitals: see anesthesia record Comments: [facility]
[2017-07-16] MEDS ORDERED: Dexamethasone 4 MG/ML VIAL IVP ONE (09:44)
[2017-07-16] MEDS ORDERED: *HR* Labetalol 20 MG/4 ML SYRINGE IVP PRN (09:44)
[2017-07-16] MEDS ORDERED: Ondansetron 4 MG/2 ML VIAL IVP ONE (09:44)
--- NOTE | 2017-07-16 11:05 | Operative Note ---
Date of procedure: 07/16/17 Pre-op diagnosis: AAA Post-op diagnosis: same Procedure: EVAR with Endurant IIs stent graft system Bilateral open femoral exposure Nonselective aortic catheter placement with aortograms with interpretation and supervision Endovascular repair with modular bifurcated device with 2 docking limbs Complications: none Anesthesia: GETA Surgeon: Michael Guzman Co-Surgeon: Eusebio Akbar Estimated blood loss (cc): 100 Specimen: none Condition: stable Disposition: PACU Procedure in Detail: History Delores vance is a 77-year-old white female who was identified as having a greater than 5 cm abdominal aortic aneurysm. Her surgery was delayed due to pulmonary concerns and then the need for further cardiac evaluation including cardiac catheterization. The patient now comes to the operating room for repair of this lesion. The patient also has known stage III chronic kidney disease. Procedure After informed consent was obtained the patient was taken to the operating room. General endotracheal anesthesia was established under arterial line guidance. The abdomen and groin and upper thighs were sterilely prepped and draped. A timeout protocol was begun before the surgery was initiated. A 2 surgeon approach was utilized for this procedure due to the patient's comorbid conditions including and in particular because of her coronary artery disease. This was to maximize surgical's pain and to decrease anesthetic time as well as blood loss. This would as well facilitate complex intraoperative decision making. The femoral arteries were exposed through oblique incisions in the groin bilaterally. Dissection was carried down to control the vessel with Vesseloops. After this was accomplished 18-gauge needles were used and placed on each side in a retrograde fashion. A wire was then inserted and this was followed by an 8 Maltese sheath and dilator. The dilator was removed and the sheath was aspirated and flushed. The wires were appropriately placed into the suprarenal aorta. Heparin was administered a dose of 5000 units. A marker pigtail catheter was then inserted via the right side. An aortogram was then obtained with confirmation of the markings and measurements made via preoperative CT scanning. An Amplatz wire was then inserted through the marker pigtail catheter and a marker pigtail catheter was removed and then inserted via the left side. With with the information available an Endurant IIs stent graft system was selected with the main body being placed via the right side which measured at 32 x 14 x 103 mm. This device was deployed including the bare metal the suprarenal stent deployed as well. Then the left component was placed via the left groin. This was a 16 x 13 x 124 mm device. This device was placed and then attention was directed back to the right side. The main body was totally deployed and then an angiogram obtained. This angiogram allowed measurement and selection of the third and final component for the repair of the aneurysm with a 16 x 13 x 93 mm stent graft system limb. This was then deployed. 11 Maltese sheaths were placed in each groin and then a Reliant balloon was placed through each groin and the endovascular stent graft was gently dilated with simultaneous inflation in the area of the aortic bifurcation and proximal aortic stent limbs into the iliac system. The pigtail catheter was then reinserted. A completion aortogram was obtained. This demonstrated patency of the renal arteries bilaterally and the iliac bifurcation bilaterally. There were no findings of endovascular leak. The endovascular stent graft appeared to be an appropriate in excellent position. The wires and catheters were then removed. The femoral puncture sites were repaired with 6-0 Prolene. The area was inspected by palpation and Doppler evaluation and excellent Doppler signals and pulses were found. The wounds were irrigated and then closed using absorbable suture. Dry sterile dressings were applied. The patient was extubated in the operating room and taken to the recovery room in stable condition. There were no intraoperative complications. The patient tolerated the procedure well. Estimated blood loss was 100 mL. 93 mL's of contrast were used for this procedure.
[2017-07-16] MEDS: *HR* Promethazine 25 MG/ML VIAL IVP PRN ×2 (11:24→11:37)
[2017-07-16] MEDS: *HR* HYDROmorphone (PF) 1 MG/ML SYRINGE IVP PRN ×2 (11:26→11:36)
--- NOTE | 2017-07-16 12:03 | Anesthesia Evaluation Post Op ---
Date of Encounter: 07/16/17 Time of Encounter: 12:00 - Vital Signs Vital Signs: Selected Entries 07/16/17 11:41 07/16/17 11:51 Temperature 98.3 F Pulse Rate 61 Respiratory Rate 16 Blood Pressure 152/78 O2 Sat by Pulse Oximetry 100 - Lungs Lungs: Clear Ascult./Percussion - Airway Airway: Non-obstructed - Cardiovascular Regular Rate - Mental Status Mental Status: Sedated - Nausea Vomiting Nausea Vomiting: Responds to treatment with IV Meds - Hydration Hydration: NPO - Discharge PostOp Status: Transfer Patient to floor
[2017-07-16] MEDS ORDERED: Insulin LISPRO 300 UNITS/3 ML VIAL SQ SCH ×2 (12:28→21:00)
[2017-07-16] MEDS ORDERED: *HR* HYDROcodone/Acet 5/325 mg TABLET PO PRN (12:28)
[2017-07-16] MEDS ORDERED: Naloxone 0.4 MG/ML INJ IVP PRN (12:28)
[2017-07-16] MEDS ORDERED: *HR* Morphine 2 MG/ML SYRINGE IVP PRN ×2 (12:28)
[2017-07-16] MEDS ORDERED: Ondansetron 4 MG/2 ML VIAL IVP PRN (12:28)
[2017-07-16] MEDS ORDERED: Insulin LISPRO 300 UNITS/3 ML VIAL SQ ONE (13:00)
[2017-07-16] MEDS: 0.9 % Sodium Chloride 1,000 ML IVC SCH (13:15)
[2017-07-16] MEDS: *HR* Metoprolol 5 MG/5 ML VIAL IVP SCH ×2 (13:16→17:11)
--- NOTE | 2017-07-16 13:20 | Operative Note ---
Date of procedure: 07/16/17 Pre-op diagnosis: Abdominal aortic aneurysm Post-op diagnosis: same Procedure: 1. Introduction of catheter into the aorta via right common femoral artery. 2. Introduction of catheter into the aorta via left common femoral artery. 3. Right femoral vessel exposure for endograft placement. 4. Left femoral vessel exposure for endograft placement. 5. [employer] Endurant modular bifurcated aortic endograft placement with 1 docking limb including radiologic supervision and interpretation. Complications: None Anesthesia: GETA Surgeon: Eusebio Akbar Co-Surgeon: Michael Guzman Estimated blood loss (cc): 100 Specimen: None Condition: stable Disposition: PACU Procedure in Detail: Indications: The patient is a 77 year old female with a history of diabetes, coronary artery disease, pulmonary hypertension, essential hypertension, diastolic herat dysfunction and obstructive sleep apnea. She was found to have a 5cm infrarenal abdominal aortic aneurysm. Her anatomy was acceptable for endograft placement. Endograft repair of her aneurysm was recommended to reduce her risk of rupture and . Procedure: The patient was taken to the operating room and placed in supine position on the operating room table. After the induction of general endotracheal anesthesia, she was cleaned and draped in normal sterile fashion. A two surgeon approach was utilized for this procedure in order to minimize anesthetic time and the risks for complications due to the patients comorbid conditions. In addition, a two surgeon approach was used for intraoperative decision making. Oblique incisions were made over both groins sharply. Hemostasis was obtained with electrocautery. Using blunt and sharp and electrocautery dissection, the bilateral common, deep and superficial femoral arteries were dissected circumferentially and surrounded with Vessel loops. At this point, the patient received heparin intravenously and then bilateral femoral punctures with large- bore needles were performed. J wires were advanced into the aorta under fluoroscopic view. The right wire initially would not advance into the aorta. Therefore a liliana catheter and glidewire were used. The patient had a preexisting right common iliac stent. Given the difficulty advancing the wire, an angiogram was performed. An angioplasty was then performed with an 8 x 40mm balloon. A completion image revealed no significant residual stenosis. Given the anatomy, the main body was selected to be the right side in this patient. The needles were exchanged for bilateral sheaths and a long Pigtail catheter was advanced over the right wire into the aortic arch. A retrograde angiogram was performed to evaluate the left iliac system due to the presence of a previously placed iliac stent and possible stenosis on CT scan. The angiogram revealed that the left iliac vessels were appropriate for endograft placement. The wire was removed and an angiogram was then performed via a pigtail catheter for sizing of the graft. The wire was replaced with a stiff wire. The catheter was removed and repositioned in the suprarenal aorta via the left femoral artery. The main body was inserted over the stiff wire with the contralateral limb being in the ipsilateral position. An aortogram was then performed at the level of the renal artery. The graft was positioned just inferior to the renal arteries and the first 2 segments were deployed. Again an aortogram revealed adequate infrarenal placement. The graft was then further opened to the contralateral limb exposed. A final angiogram was performed confirming adequate infrarenal placement. The suprarenal stent was deployed in the usual fashion. The contralateral limb was then selected with a wire using a guiding catheter. Intragraft placement of the wire was confirmed by placing the pigtail and spinning it freely. An oblique view of the pelvis was performed with contrast to size the left extension limb. The sheath was removed and exchanged for the appropriate limb, which was advanced under fluoroscopic view and positioned. It was then expanded. The introducer and graft sheath were exchanged for a sheath. A Reliant balloon was then advanced into the graft proximal and distal endpoints as well as overlap were expanded with gentle pressure. A second Reliant balloon was inflated simultaneously along the limbs as they crossed the aortic bifurcation bilaterally. A flush completion angiogram revealed no evidence of an endoleak. Further imaging of the right femoral vessels revealed no evidience of stenosis. Tension was applied to the Vessel loops in the groin. The sheaths and wires were then removed. The bilateral arteriotomies were repaired with a running 6-0 Prolene. Antibiotic irrigation was infused into the groin. The bilateral groins incisions were closed with 2-0 Vicryl, 3-0 Vicryl and 4-0 Vicryl. Sterile dressings were applied. The patient was then extubated and taken to the recovery room in stable condition.
[2017-07-16] MEDS ORDERED: *HR* Dextrose 50 % in Water (Syg) 50 ML SYRINGE IVP PRN (17:01)
[2017-07-16] MEDS ORDERED: Dextrose Gel 15 GM PO PRN ×2 (17:01)
[2017-07-16] MEDS ORDERED: D5% in Water 1,000 ML IVC PRN (17:01)
[2017-07-16] MEDS: Insulin LISPRO 300 UNITS/3 ML VIAL SQ SCH (17:11)
[2017-07-16] MEDS: Acetaminophen 325 MG TABLET PO PRN (17:16)
[2017-07-16] MEDS ORDERED: *HR* HYDROmorphone (PF) 1 MG/ML SYRINGE IVP PRN ×2 (17:31)
[2017-07-16] MEDS ORDERED: ACETYLCYSTEINE 600 MG PO SCH (21:00)
[2017-07-17] MEDS: *HR* Metoprolol 5 MG/5 ML VIAL IVP SCH ×3 (00:14→11:24)
[2017-07-17 04:29] LABS: Basophils % 0.1 %; Hematocrit 31.4 % (35.3-44.9); Hemoglobin 10.1 g/dL (11.5-15.4); Immature Granulocytes % 0.4 % (0-4); Lymphocytes # 0.5 K/mcL (0.6-4.6); Lymphocytes % 4.7 %; Mean Corpuscular HGB Conc 32.2 g/dL (31.6-35.5); Mean Corpuscular Hemoglobin 29.5 pg (28.0-33.3); Mean Corpuscular Volume 91.8 fL (83.0-100.0); Mean Platelet Volume 10.2 fL (9.4-12.4); Monocytes # 0.6 K/mcL (0.0-1.3); Monocytes % 6.2 %; Platelet Count 156 K/mcL (140-400); Red Blood Count 3.42 M/mcL (3.82-4.97); Segmented Neutrophils % 88.6 %
[2017-07-17 04:48] LABS: Calcium 8.2 mg/dL (8.6-10.8); Potassium 3.7 mEq/L (3.5-4.5)
[2017-07-17] MEDS: Insulin LISPRO 300 UNITS/3 ML VIAL SQ SCH ×2 (07:42→11:39)
[2017-07-17] MEDS: 0.9 % Sodium Chloride 1,000 ML IVC SCH (08:01)
[2017-07-17] MEDS ORDERED: Insulin DETEMIR 100 UNIT/ML X5UNITS SQ SCH (09:00)
[2017-07-17] MEDS ORDERED: Metoprolol XL (24 HR) Succ 50 MG TAB.ER.24H PO SCH (09:00)
[2017-07-17] MEDS ORDERED: Aspirin 81 MG TAB.CHEW PO SCH (09:00)
[2017-07-17] MEDS: Acetaminophen 325 MG TABLET PO PRN (09:38)
[2017-07-17 11:37] VITALS: BP 117/54
--- NOTE | 2017-07-17 12:38 | Discharge Summary ---
Date of Encounter: 07/17/17 Time of Encounter: 12:36 - Discharge Diagnosis (1) CAD (coronary artery disease) Priority: Secondary Status: Chronic Comments: Patient has a long history of coronary artery disease. She is status post cardiac evaluation and cardiac catheterization prior to operation. Decision was made not to proceed with intervention due to the increased risk and decreased benefits in the area of the anatomy of the coronary circulation that was involved. Qualifiers: Coronary Disease-Associated Artery/Lesion type: council artery [place] vs. transplanted heart: council heart Associated angina: without angina Qualified Code(s): I25.10 - Atherosclerotic heart disease of council coronary artery without angina pectoris (2) AAA (abdominal aortic aneurysm) Priority: Primary Status: Chronic Comments: Patient underwent endovascular repair of abdominal aortic aneurysm Qualifiers: Presence of rupture: without rupture Qualified Code(s): I71.4 - Abdominal aortic aneurysm, without rupture (3) CKD (chronic kidney disease) Priority: Secondary Status: Chronic Comments: Patient has known chronic kidney disease. With hydration and protective measures patient's renal status has not been impaired secondary to the contrast and the anesthetic for the surgery. Qualifiers: Chronic kidney disease stage: stage 3 (moderate) Qualified Code(s): N18.3 - Chronic kidney disease, stage 3 (moderate) (4) Congestive heart failure Priority: Secondary Status: Chronic Comments: Patient is under medical management for congestive heart failure. Qualifiers: Congestive heart failure type: unspecified congestive heart failure type Congestive heart failure chronicity: chronic Qualified Code(s): I50.9 - Heart failure, unspecified - Discharge Medications Home Medications: Aspirin 81 mg PO DAILY 02/07/16 [History] Metoprolol XL (24 HR) Succ [Toprol Xl] 100 mg PO DAILY 08/21/16 [History] Insulin Glargine,Hum.rec.anlog [Lantus Solostar] 25 unit SQ DAILY 30 Days insuln.pen 09/14/16 [Rx] Furosemide [Lasix] 40 mg PO DAILY PRN 10/01/16 [History] Insulin LISPRO [HumaLOG] 2 - 12 units SQ TIDAC 11/11/16 [History] Acetylcysteine [N-Dxfxkw-b-Cysteine] 600 mg PO BID 07/16/17 [History] Clopidogrel [Plavix] 75 mg PO DAILY 07/16/17 [History] Allergies/Adverse Reactions: 3 Allergy/AdvReac Type Severity Reaction Status Date / Time codeine Allergy See Verified 07/16/17 07:08 Comments acetaminophen AdvReac Nausea Verified 07/16/17 07:08 [From Darvocet-N] morphine AdvReac Nausea Verified 07/16/17 07:08 propoxyphene AdvReac Nausea Verified 07/16/17 07:08 [From Darvocet-N] Date of admission: 07/16/17 12:21 Primary care physician: Edgar Nguyen Jr, MD Consults: 07/16/17 13:45 Consult to Social Problems Specialist [CONS] Routine Reason for SW Consult: Possible need for home care post op Procedure(s) Performed: Endovascular repair of abdominal aortic aneurysm Discharging clinician: Michael Guzman Anticipated date of discharge: 07/17/17 - Patient Status Disposition: Home, Self-Care Condition: Good Functional capacity at discharge: independent ambulation Overall status at discharge: patient is progressing back to baseline - Discharge Instructions Follow Up With: Edgar Nguyen Jr, MD [Primary Care Provider] - (DR. NGUYEN IS ON VACATION) Michael Guzman MD [Partnered Physician] - 08/07/17 9:45 am Elizabeth Ackerman CNP [Advanced Practice Nurse] - 07/22/17 1:45 pm Additional Instructions: Remove groin dressings tomorrow. Keep groin areas dry and use a dry washcloth to help keep the skin . Keep groin incisions dry and do not wash until 5 days postoperatively. Resume usual home medications. - Diet and Activity Activity: increase activity as tolerated Diet: advance to your usual diet - Hospital Course Hospital course: Ms. Florez is a 77 year old female With an abdominal aortic aneurysm. This was treated with endovascular technique. The patient had no periprocedural complications. She tolerated the procedure well. She was extubated at the conclusion of the operation. She was stable from both the pulmonary and hemodynamic standpoint. She had no episodes of angina. The patient used her CPAP mask on postoperative day #0. Postoperatively on postoperative day #1 she was stable. She was tolerating a diet and ambulating. She was felt fit for discharge. Operatory values demonstrated stable renal status. Instructions were given to the patient regards to her diet and medications and wound care prior to discharge. - Time Spent with Patient Total time spent providing and/or coordinating discharge services: Exam Vital Signs, Last 4 Hours Temp Pulse Resp BP Pulse Ox 07/17/17 11:49 62 07/17/17 11:36 98.6 F 67 16 117/54 99 General: Present: Conversant, No Apparent Distress, Well developed, Well nourished HEENT: Present: Atraumatic Neck: Absent: JVD Cardiac: Present: Reg Rate and Rhythm, Normal S1 and S2 Lungs: Present: Normal Breath Sounds Neuro: Present: Alert and responsive, No focal deficits noted Abdomen: Present: Soft, Non-tender Vascular: Present: Surgical incisions (Dressings are intact on the bilateral groin incisions.) - VTE Documentation of Mechanical Device: Intermittent pneumatic compression device
== END 2017-07-17 14:22 | disposition home or self-care (01) | DRG 269 ==
LOC: SAMDAY 06:20 → 2NNU 12:21 → INTOOBSV 12:21
PROVIDERS: ADMIT Surgery Vascular Surgery; ATTEND Surgery Vascular Surgery

== ENCOUNTER 2017-07-18 07:17 | Observation (INO) ==
--- NOTE | 2017-07-18 07:25 | Emergency Department Note ---
Disposition Clinical Impression: HCAP (healthcare-associated pneumonia), Hypoxia Dyspnea Qualifiers: Dyspnea type: unspecified Qualified Code(s): R06.00 - Dyspnea, unspecified Disposition: Admitted As Inpatient Condition: Fair Referrals: Edgar Nguyen Jr, MD [Primary Care Provider] - Forms: ED Satisfaction Letter Time of Disposition: 12:50 SOB HPI - General Chief Complaint: ED Shortness of Breath/Dyspnea Stated Complaint: sob Time Seen by Provider: 07/18/17 07:24 Source: patient Mode of arrival: ambulatory Limitations: no limitations Nursing Notes Reviewed: Yes Vital Signs Reviewed: Yes - History of Present Illness Patient is a 77-year-old female with past medical history of significant COPD hx , CAD hx, CKD. She follows with Dr. Bocanegra for cardiology. She just had an abdominal aortic aneurysm repair [address] Guzman. She presents today with shortness of breath and cough. She states that prior to surgery she had coughing and some mild sputum production. She said her surgery went well and she was discharged yesterday. However, her shortness of breath and coughing has worsened. She now has increased sputum production, is coughing up any phlegm. She also complains of some mild pain in the bilateral lower rib area and epigastric region that she states is worsened when she is coughing. She thinks that she strained her muscles from coughing so hard. She denies any other fevers, vomiting , change in bowels, urinary complaints. She does admit to some mild nausea. She states that her abdomen "is not that sore, and she believes that this mild soreness is residual from her surgery two days ago." - Related Data Home Medications Medication Instructions Recorded Confirmed Aspirin 81 mg PO DAILY 02/07/16 07/18/17 Metoprolol XL (24 HR) Succ [Toprol 100 mg PO DAILY 08/21/16 07/18/17 Xl] Furosemide [Lasix] 40 mg PO DAILY PRN 10/01/16 07/18/17 Insulin LISPRO [HumaLOG] 2 - 12 units SQ TIDAC 11/11/16 07/18/17 Clopidogrel [Plavix] 75 mg PO DAILY 07/16/17 07/18/17 Previous Rx's Medication Instructions Recorded Insulin Glargine,Hum.rec.anlog 25 unit SQ DAILY 30 Days 12/16/16 [Lantus Solostar] insuln.pen Allergies Allergy/AdvReac Type Severity Reaction Status Date / Time codeine Allergy See Verified 07/18/17 07:22 Comments acetaminophen AdvReac Nausea Verified 07/18/17 07:22 [From Darvocet-N] morphine AdvReac Nausea Verified 07/18/17 07:22 propoxyphene AdvReac Nausea Verified 07/18/17 07:22 [From Darvocet-N] All systems ED: reviewed and negative except as stated. Constitutional: Denies: fever Cardiovascular: Reports: other Respiratory: Reports: cough, dyspnea Gastrointestinal: Reports: abdominal pain, nausea. Denies: vomiting, diarrhea, constipation, hematemesis, melena, hematochezia Genitourinary: Denies: urgency, dysuria, frequency Past Medical History - Past Medical History Attestation: Yes The following information was validated with the patient. Source: patient Medical history: Reports: aortic aneurysm, arthritis, coronary artery disease, diabetes, myocardial infarction, renal disease Surgical history: Reports: appendectomy, cholecystectomy, colectomy, coronary bypass (CABG), heart valve replacement, hysterectomy, knee replacement, other, pacemaker Psychiatric history: Reports: anxiety, depression - Social History Smoking Status: Never smoker Smokeless Tobacco Status: No Alcohol use: Reports: none Drug use: Reports: none Physical Exam - General Limitations: no limitations General appearance: alert, in no apparent distress - Head Head exam: atraumatic, normocephalic, normal inspection - Eye Eye exam: Present: normal appearance, PERRL, EOMI - ENT ENT exam: normal exam, normal oropharynx, mucous membranes moist - Neck Neck exam: Present: normal inspection, full ROM, trachea midline - Chest Chest inspection: Present: normal inspection, symmetric chest wall rise - Respiratory Respiratory exam: Present: wheezes (wheezes and decreased aeration in bilateral LL; mild to moderate increase in resp effort with accessory muscle use. ) - Cardiovascular Cardiovascular exam: Present: regular rate, normal rhythm, normal heart sounds - Abdominal Exam Abdominal exam: Present: soft, tenderness (very mild tenderness in epigastric region). Absent: distention, guarding, rebound, rigidity - Extremities Exam Extremities exam: Present: normal inspection, full ROM. Absent: tenderness - Neurological Exam Neurological exam: Present: alert, oriented X3 - Psychiatric Psychiatric exam: Present: normal affect, normal mood - Skin Skin exam: Present: warm, dry, intact, normal color Course Course Narrative: Patient was mildly hypertensive on 130s over 70s, the other vitals within normal limits. Patient had productive cough on exam. Decreased aeration of bilateral lower lobes. Wheezes and decreased aeration in bilateral LL; mild to moderate increase in resp effort with accessory muscle use. She had some mild tenderness along the lower aspects of bilateral ribs, intercostal muscles, and mild tenderness in the epigastric region. She had no peritoneal signs on exam. I discussed EKG, chest x-ray to assess for pneumonia, breathing treatments, BMP to check renal function in case any additional imaging was needed. She was agreeable with this plan. However, she stated that she did not want any CT imaging with contrast to assess her abdominal aortic aneurysm repair has of her chronic kidney disease and fever kidney damage. I discussed that this may be an important piece in the workup and she stated that she did not care and that she absolutely did not want this done despite discussing risks and benefits. She also requested that her vascular surgeon be called. 08:[address] Guzman, her vascular surgeon. He was comfortable with any workup that we deemed necessary. However, he he states that he does believe that this is probably more of a pneumonia post op presentation rather than any issues with aorta due to normal vitals, history of coughing, surgery going very well. He did note that the patient follows with [facility] and had a heart catheter before the procedure which he states showed a coronary lesion that was in an area that was considered high risk and they have decided on medical management rather than intervention. 12:41 d-dimer was ordered to assess for PE. It was elevated. BMP was ordered to assess kidney function. We discussed performing a CTA with the patient to assess for PE versus pneumonia. She is agreeable with this. CT of the chest was performed. No PE. It did show multifocal pneumonia. Patient was started on vancomycin, Zosyn, Levaquin for healthcare associated pneumonia. Patient has been accepted by hospitalist for admission. She has received breathing treatments, steroids. She is still having mild shortness of breath and is requiring 2 L nasal cannula oxygen to maintain saturation of 96%. She does not require any oxygen at home usually. Chest X-Ray 07/18/17 07:56 IMPRESSION: 1. Mild prominence of the pulmonary vasculature appears similar. 2. Left basilar atelectasis. D/ / Nils Cartagena MD / Nils Cartagena MD Interpreting Provider: Nils Cartagena MD Chest CTA 07/18/17 10:43 IMPRESSION: No evidence of pulmonary embolism. New moderate-sized infiltrate within the lateral segment of the right middle lobe. Additional small infiltrate is identified within the left upper lobe near the apex. These changes may be related to multifocal pneumonia Stable small loculated right pleural effusion Probable sebaceous cyst involving the medial aspect of the left breast measuring 2.5 cm previously measuring 2.1 cm. Clinical skin evaluation is suggested given increase in size since prior study D/ / Que Kaplan MD / Que Kaplan MD Interpreting Provider: Que Kaplan MD Vital Signs Temperature 98.3 F 07/18/17 07:22 Pulse Rate 79 07/18/17 07:22 Respiratory Rate 22 07/18/17 07:22 Blood Pressure 139/70 07/18/17 07:22 O2 Sat by Pulse Oximetry 96 07/18/17 07:22 Temperature 98.3 F 07/18/17 07:22 Pulse Rate 98 07/18/17 11:43 Respiratory Rate 20 07/18/17 11:57 Blood Pressure 160/98 07/18/17 11:43 O2 Sat by Pulse Oximetry 100 07/18/17 11:57 Oxygen Delivery Oxygen Delivery Nasal Cannula Shortness of Breath/Dyspnea - [facility] Narrative Medical decision making narrative: d-dimer was ordered to assess for PE. It was elevated. BMP was ordered to assess kidney function. We discussed performing a CTA with the patient to assess for PE versus pneumonia. She is agreeable with this. CT of the chest was performed. No PE. It did show multifocal pneumonia. Patient was started on vancomycin, Zosyn, Levaquin for healthcare associated pneumonia. Patient has been accepted by hospitalist for admission. She has received breathing treatments, steroids. She is still having mild shortness of breath and is requiring 2 L nasal cannula oxygen to maintain saturation of 96%. She does not require any oxygen at home usually. - Medical Records Medical records reviewed: Yes I reviewed the patient's medical records. - Lab Data Lab results reviewed: Yes I reviewed the patient's lab results. Result diagrams: 07/18/17 09:49 Lab Results 07/18/17 07/18/17 07/18/17 Range/Units 09:29 09:49 09:49 D-Dimer 2595 H (0-500) ng/mLFEU Sodium 140 (136-145) mEq/L Potassium 3.6 (3.5-4.5) mEq/L Chloride 104 (98-109) mEq/L Carbon Dioxide 25 (19-29) mEq/L BUN 23 H (7-20) mg/dL Creatinine 1.40 H (0.57-1.11) mg/dL Est GFR ( Amer) 44 L (> 60) Est GFR (Non-Af Amer) 36 L (> 60) BUN/Creatinine Ratio 16 (6-26) Glucose 163 H (70-99) mg/dL Calculated Osmolality 297 (280-300) Calcium 9.3 (8.6-10.8) mg/dL B-Natriuretic Peptide (0-100) pg/mL Specimen Rejected Hemolyzed 07/18/17 Range/Units 11:41 D-Dimer (0-500) ng/mLFEU Sodium (136-145) mEq/L Potassium (3.5-4.5) mEq/L Chloride (98-109) mEq/L Carbon Dioxide (19-29) mEq/L BUN (7-20) mg/dL Creatinine (0.57-1.11) mg/dL Est GFR ( Amer) (> 60) Est GFR (Non-Af Amer) (> 60) BUN/Creatinine Ratio (6-26) Glucose (70-99) mg/dL Calculated Osmolality (280-300) Calcium (8.6-10.8) mg/dL B-Natriuretic Peptide 248 H (0-100) pg/mL Specimen Rejected - Radiology Data Radiology results reviewed: Yes I reviewed the patient's radiology results. Chest X-Ray 07/18/17 07:56 IMPRESSION: 1. Mild prominence of the pulmonary vasculature appears similar. 2. Left basilar atelectasis. D/ / Nils Cartagena MD / Nils Cartagena MD Interpreting Provider: Nils Cartagena MD Chest CTA 07/18/17 10:43 IMPRESSION: No evidence of pulmonary embolism. New moderate-sized infiltrate within the lateral segment of the right middle lobe. Additional small infiltrate is identified within the left upper lobe near the apex. These changes may be related to multifocal pneumonia. Stable small loculated right pleural effusion. Probable sebaceous cyst involving the medial aspect of the left breast measuring 2.5 cm previously measuring 2.1 cm. Clinical skin evaluation is suggested given the increase in size since the prior study. D/ / 07/18/2017 12:41:13 Que Kaplan MD / luis Interpreting Provider: MD Clem Roth - Clem Situation: Demographics, MOA Background: Presenting Complaint, Relevant PMH, Meds, & Allergies Assessment: Vital Signs, Course and respsone to treatment, Exam Concerns, Patient/Family Expectation, Pertinant Lab Results, Outstanding Labs Recommendation: Barrier(s) to disposition, Recommendation based on pending studies, treatments, or consults S.B.Roula Report Given to: Dr. Livia Nj Repor Time: 12:50 Attestation Statement - Attestation Attestation: I examined this patient and my medical decision-making was reviewed with the Resident Physician. I agree with the documented findings, disposition and treatment plan as described except to the extent set forth below. Patient with long history of, heart disease with a pacemaker, mitral valve replacement, status post 2 coronary artery bypass graft procedures, with a recent endovascular aortic procedure with Dr. Guzman presents short of breath. She has bibasilar rales without peripheral edema, no JVD or hepatojugular reflux. She does have a little bit of orthopnea. No history of heart failure. She has no associated chest pain. Along with the shortness of breath, her most prominent complaint is cough. She has mild to moderate conversational dyspnea and tachypnea. Chest x-ray does not show pneumonia, does show some atelectasis. D-dimer significantly elevated. She is not on anticoagulants, is on Plavix. CT has been ordered. We will continue to treat her with nebulizers. The patient and the family are not comfortable with her going home , and I agree - she will require admission.
[2017-07-18] MEDS ORDERED: Ipratropium/Albuterol Neb 3 ML IH ONE (07:56)
[2017-07-18] MEDS ORDERED: Ondansetron ODT 4 MG TAB.RAPDIS SL ONE (08:19)
[2017-07-18 10:43] LABS: Calcium 9.3 mg/dL (8.6-10.8); Potassium 3.6 mEq/L (3.5-4.5)
[2017-07-18] MEDS ORDERED: 0.9 % Sodium Chloride 1,000 ML IVC ONE (11:06)
[2017-07-18] MEDS ORDERED: Albuterol 2.5 MG/3 ML NEBULIZER IH STA (11:17)
[2017-07-18] MEDS ORDERED: predniSONE 20 MG TABLET PO STA (11:21)
[2017-07-18] MEDS ORDERED: Levofloxacin 500 MG/100 ML 500 MG/100 ML BAG IVPB ONE (12:22)
[2017-07-18] MEDS ORDERED: Piperacillin/Tazobactam 3.375 GM in D5% in Water (Mini-Bag+) 100 ML IVPB ONE (12:22)
[2017-07-18] MEDS ORDERED: Vancomycin 1,500 MG in D5% in Water 250 ML IVPB ONE (12:34)
[2017-07-18 12:54] LABS: Basophils # 0.1 K/mcL (0.0-0.2); Basophils % 0.6 %; Eosinophils # 0.3 K/mcL (0.0-0.6); Eosinophils % 2.8 %; Hematocrit 34.4 % (35.3-44.9); Immature Granulocytes % 0.4 % (0-4); Immature Platelets 4.1 % (1.1-6.1); Lymphocytes # 1.3 K/mcL (0.6-4.6); Lymphocytes % 12.8 %; Mean Corpuscular Volume 93.7 fL (83.0-100.0); Mean Platelet Volume 10.3 fL (9.4-12.4); Monocytes # 0.9 K/mcL (0.0-1.3); Monocytes % 8.5 %; Neutrophils # 7.7 K/mcL (1.6-8.9); Platelet Count 212 K/mcL (140-400); Red Blood Count 3.67 M/mcL (3.82-4.97); Red Cell Distribution Width 14.2 % (11.5-14.5); Segmented Neutrophils % 74.9 %
[2017-07-18] MEDS ORDERED: Vancomycin 1,500 MG in D5% in Water 250 ML IVPB SCH (13:00)
[2017-07-18] MEDS ORDERED: Naloxone 0.4 MG/ML INJ IVP PRN ×2 (14:25→14:54)
[2017-07-18] MEDS ORDERED: Furosemide 40 MG TABLET PO PRN (14:26)
[2017-07-18] MEDS ORDERED: 0.9 % Sodium Chloride 1,000 ML IVC SCH (14:30)
--- NOTE | 2017-07-18 15:09 | Internal Med History&Physical ---
<Wesley Pierson J - Last Filed: 07/18/17 15:04> Date of Encounter: 07/18/17 Time of Encounter: 15:04 Assessment and Plan (1) HCAP (healthcare-associated pneumonia) Current visit: Yes Status: Acute Status post AAA repair, Shortness of breath and increased sputum production. Has home O2 only wears when necessary now requiring 4 L nasal cannula to maintain oxygen saturation. CT reveals multifocal pneumonia, admitted inpatient for IV antibiotic therapy Vancomycin pharmacy to dose, Zosyn every 8 hours, Levaquin IVPB daily Ipratropium 6 hours scheduled for shortness of breath Continuous telemetry and SPO2, 4 L nasal cannula titrated as needed to obtain SPO2 greater than 92% (2) Dyspnea Current visit: Yes Status: Acute See plan above Qualifiers: Dyspnea type: unspecified Qualified Code(s): R06.00 - Dyspnea, unspecified (3) AAA (abdominal aortic aneurysm) Current visit: Yes Status: Chronic Underwent endovascular repair 2 days ago hemodynamically stable. Surgical site with iron dressings scant sanguinous drainage clean dry and intact and without signs or symptoms of infection Qualifiers: Presence of rupture: without rupture Qualified Code(s): I71.4 - Abdominal aortic aneurysm, without rupture (4) HTN (hypertension) Current visit: No Status: Chronic Qualifiers: Hypertension type: essential hypertension Qualified Code(s): I10 - Essential (primary) hypertension (5) Type 2 diabetes mellitus Current visit: Yes Status: Chronic History of type 2 diabetes with long-term insulin use. 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 Chronic kidney disease stage: stage 3 (moderate) Qualified Code(s): E11.22 - Type 2 diabetes mellitus with diabetic chronic kidney disease; N18.3 - Chronic kidney disease, stage 3 ( moderate); Z79.4 - intermediate (current) use of insulin (6) CKD (chronic kidney disease) Current visit: Yes Status: Chronic History of chronic kidney disease, monitor renal function, patient's creatinine is at baseline Qualifiers: Chronic kidney disease stage: stage 3 (moderate) Qualified Code(s): N18.3 - Chronic kidney disease, stage 3 (moderate) (7) Congestive heart failure Current visit: Yes Status: Chronic History of congestive heart failure. Fine crackles auscultated at posterior bases bilateral lungs. Continue Lasix Qualifiers: Congestive heart failure type: unspecified congestive heart failure type Congestive heart failure chronicity: chronic Qualified Code(s): I50.9 - Heart failure, unspecified (8) Anemia Current visit: Yes Status: Acute History of chronic anemia. Hemoglobin and hematocrit at patient's baseline. CBC in the morning Qualifiers: Anemia type: unspecified type Qualified Code(s): D64.9 - Anemia, unspecified (9) DVT prophylaxis Current visit: Yes Status: Acute Lovenox 40 mg subcutaneous daily Internal Medicine - H&P: HPI Chief complaint: Shortness of breath, pneumonia Admitted From: Home Plans for Post Hospital Care: Home History of present illness: Ms. Florez is a 77 year old female with PMH of CHF, COPD, CAD, sick 80, DMII, [place] with stents, and CABG. She is status post AAA repair 2 days ago and presents to [facility] today with cough and shortness of breath. She reports a productive cough prior to surgery that is now worsening with increased hicks sputum production and severe dyspnea. She admits to fevers, chills, fatigue and nausea. Denies vomiting, night sweats, chest pain, edema, palpitations, pain that increases with inspiration or lower extremity swelling. CTA of chest negative for PE however did reveal multifocal pneumonia Past Med Surg Social Fam HX - Past Medical History Medical history: aortic aneurysm, arthritis, coronary artery disease, diabetes, myocardial infarction, renal disease Psychiatric history: anxiety, depression - Past Surgical History Surgical History: appendectomy, cholecystectomy, colectomy, coronary bypass ( CABG), heart valve replacement, hysterectomy, knee replacement, other, pacemaker - Social History Smoking Status: Never smoker Smokeless Tobacco Status: No Alcohol use: none Drug use: none - Family History Father Living Status: Hx Family Cardiac Disorders: Yes (aortic aneurysm) Mother Living Status: Hx Family Cardiac Disorders: Yes Hx Family Respiratory Disorders: Yes (COPD) Hx Family Cancer: Yes (Colon.) Hx Family GI Disorders: No Hx Family Endocrine Disorder: No Hx Family Neuromuscular Disorders: No Hx Family Neurologic Disorders: No Hx Family HEENT Disorders: No Hx Family Autoimmune Disorders: No Internal Medicine - H&P: Meds Aspirin 81 mg PO DAILY 02/07/16 [History] Metoprolol XL (24 HR) Succ [Toprol Xl] 100 mg PO DAILY 08/21/16 [History] Insulin Glargine,Hum.rec.anlog [Lantus Solostar] 25 unit SQ DAILY 30 Days insuln.pen 09/14/16 [Rx] Furosemide [Lasix] 40 mg PO DAILY PRN 10/01/16 [History] Insulin LISPRO [HumaLOG] 2 - 12 units SQ TIDAC 11/11/16 [History] Clopidogrel [Plavix] 75 mg PO DAILY 07/16/17 [History] 3 Allergy/AdvReac Type Severity Reaction Status Date / Time codeine Allergy See Verified 07/18/17 07:22 Comments acetaminophen AdvReac Nausea Verified 07/18/17 07:22 [From Darvocet-N] morphine AdvReac Nausea Verified 07/18/17 07:22 propoxyphene AdvReac Nausea Verified 07/18/17 07:22 [From Darvocet-N] All Systems PM: A 10-system review of systems was performed and is negative for pertinent findings except as documented above in the HPI. - Constitutional Constitutional: as per HPI, chills, fatigue, fever(s) (Subjective), no falls, no night sweats, no weakness, no weight gain, no weight loss - EENT Eyes: no change in vision, no discharge, no pain, no photophobia Ears: no ear discharge, no ear pain, no tinnitus Nose, mouth and throat: no dysphagia, no nasal discharge, no neck pain, no sore throat - Cardiovascular Cardiovascular ROS IM: as per HPI, dyspnea, no chest pain, no diaphoresis, no edema, no irregular heart rhythm, no lightheadedness, no palpitations, no syncope - Respiratory Respiratory: as per HPI, cough, chest congestion (Productive of smallwood sputum), pain with cough, no dyspnea, no wheezing, no pain on inspiration, no excessive phlegm production - Gastrointestinal Gastrointestinal: no abdominal pain, no diarrhea, no hematemesis, no hematochezia, no melena, no nausea, no vomiting - Genitourinary Genitourinary: no change in urinary stream, no dysuria, no flank pain, no hematuria - Musculoskeletal Musculoskeletal ROS IM: no numbness, no tingling - Integumentary Integumentary IM: no rash, no unusual bruising - Neurological Neurological ROS: no confusion, no convulsions, no focal weakness, no numbness, no tingling, no tremor(s) - Hematologic/Lymphatic Hematologic/Lymphatic: no easy bruising - Constitutional Vitals: Temp Pulse Resp BP Pulse Ox 98.4 F 98 17 122/51 100 07/18/17 14:32 07/18/17 14:32 07/18/17 14:32 07/18/17 14:32 07/18/17 14:32 General appearance: Present: cooperative, A&O X 3, no acute distress, answers questions appropriately - Head Head exam: Present: atraumatic, normocephalic - Eye Eye exam: Present: PERRL, conjuntiva pink, sclera anicteric Pupils: Present: PERRL - Neck Neck exam general surgery: Present: supple, trachea midline. Absent: lymphadenopathy - Respiratory Respiratory exam: Present: CTAB, rales (posterior bases), respiratory distress ( Mild), rhonchi (Posterior bases). Absent: accessory muscle use, chest wall tenderness, decreased breath sounds, prolonged expiratory phase, wheezes, tachypnea - Cardiovascular Cardiovascular exam: Present: RRR, +S1, +S2. Absent: diastolic murmur, gallop, rubs, systolic murmur - GI/Abdominal GI/Abdominal exam: Present: normal bowel sounds, soft, no peritoneal signs. Absent: distended, tenderness - Extremities Exam Extremities exam: Present: normal capillary refill, normal inspection, warm, radial pulses palpable and symmetrical. Absent: calf tenderness, cyanotic, pedal edema, tenderness - Incison Incision: Present: clean and dry Comments: Bilateral groin surgical incision covered by nylon dressing with scant segment is drainage; otherwise dressing dry and intact. - Neurological Exam Neurological exam: Present: alert, CN II-XII intact, oriented X3, no focal deficits. Absent: pronater drift, facial droop, speech deficit - Skin Skin exam: Present: dry, intact Internal Med - H&P Results - Labs CBC & Chem 7: 07/18/17 10:00 07/18/17 09:49 - EKG Data -: EKG Interpreted by Myself EKG shows normal: sinus rhythm Rate: normal - EKG Data Prior EKG available for review: yes When compared to previous EKG: there is no significant change EKG comments: 07/18/17 15:13 Ectopic atrial rhythm - Diagnostic Studies Chest x-ray Status: image reviewed by me Additional comments: Left basilar atelectasis CT scan - chest Status: image reviewed by me Additional comments: Multifocal pneumonia <Chuck Bhakta - Last Filed: 07/18/17 20:24> Date of Encounter: 07/18/17 Internal Medicine - H&P: HPI History of present illness: Ms. Florez is a 77 year old female All Systems PM: A 10-system review of systems was performed and is negative for pertinent findings except as documented above in the HPI. - Constitutional Vitals: Temp Pulse Resp BP Pulse Ox 98.4 F 91 18 131/78 96 07/18/17 19:20 07/18/17 19:20 07/18/17 19:20 07/18/17 19:20 07/18/17 19:20 Internal Med - H&P Results - Labs CBC & Chem 7: 07/18/17 10:00 07/18/17 09:49 - Attending Attestation I independently obtained history and examined this patient and my medical decision-making was reviewed with the nurse practitioner. I agree with the documented findings, disposition and treatment plan as described. My findings are summarized below: Patient had a recent AAA repair. Presented to the hospital with 2 day of shortness of breath and cough. Was found to be hypoxic. Plan: Healthcare associated pneumonia. We will treat her with broad-spectrum IV antibiotics. Obtain blood cultures and sputum culture. Oxygen by nasal cannula. Chuck Bhakta MD
[2017-07-18] MEDS: Ipratropium Neb 0.5 MG NEBULIZER IH SCH ×2 (16:34→22:29)
[2017-07-18] MEDS ORDERED: Dextrose Gel 15 GM PO PRN ×2 (19:35)
[2017-07-18] MEDS ORDERED: D5% in Water 1,000 ML IVC PRN (19:35)
[2017-07-18] MEDS ORDERED: *HR* Dextrose 50 % in Water (Syg) 50 ML SYRINGE IVP PRN (19:35)
[2017-07-18] MEDS: Insulin LISPRO 300 UNITS/3 ML VIAL SQ SCH ×2 (20:27→22:09)
[2017-07-18] MEDS: Piperacillin/Tazobactam 3.375 GM in D5% in Water (Mini-Bag+) 100 ML IVPB SCH (20:34)
[2017-07-19] MEDS ORDERED: Piperacillin/Tazobactam 3.375 GM in D5% in Water (Mini-Bag+) 100 ML IVPB SCH (04:00)
[2017-07-19] MEDS: Ipratropium Neb 0.5 MG NEBULIZER IH SCH ×4 (04:23→21:02)
[2017-07-19 05:12] LABS: Basophils % 0.1 %; Hematocrit 31.3 % (35.3-44.9); Hemoglobin 10.3 g/dL (11.5-15.4); Immature Granulocytes % 0.7 % (0-4); Lymphocytes # 0.5 K/mcL (0.6-4.6); Lymphocytes % 4.8 %; Mean Corpuscular HGB Conc 32.9 g/dL (31.6-35.5); Mean Corpuscular Hemoglobin 29.8 pg (28.0-33.3); Mean Corpuscular Volume 90.5 fL (83.0-100.0); Monocytes # 0.6 K/mcL (0.0-1.3); Neutrophils # 8.3 K/mcL (1.6-8.9); Platelet Count 177 K/mcL (140-400); Red Blood Count 3.46 M/mcL (3.82-4.97); Red Cell Distribution Width 14.3 % (11.5-14.5); Segmented Neutrophils % 88.4 %
[2017-07-19 05:24] LABS: Potassium 4.3 mEq/L (3.5-4.5)
[2017-07-19] MEDS ORDERED: *HR* Enoxaparin 40 MG/0.4 ML SYRINGE SQ SCH (06:00)
--- NOTE | 2017-07-19 06:37 | Electrocardiograph Report ---
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
[2017-07-19] MEDS: Piperacillin/Tazobactam 3.375 GM in D5% in Water (Mini-Bag+) 100 ML IVPB SCH (08:42)
[2017-07-19] MEDS: Metoprolol XL (24 HR) Succ 50 MG TAB.ER.24H PO SCH (08:54)
[2017-07-19] MEDS: Insulin DETEMIR 100 UNIT/ML X5UNITS SQ SCH (08:54)
[2017-07-19] MEDS: Insulin LISPRO 300 UNITS/3 ML VIAL SQ SCH ×4 (08:54→20:36)
[2017-07-19] MEDS: Aspirin 81 MG TAB.CHEW PO SCH (08:54)
[2017-07-19] MEDS ORDERED: Vancomycin 1,500 MG in D5% in Water 250 ML IVPB SCH (09:00)
--- NOTE | 2017-07-19 11:24 | Internal Med Progress Note ---
Date of Encounter: 07/19/17 Time of Encounter: 11:42 - Assessment and plan (1) HCAP (healthcare-associated pneumonia) Current Visit: No Status: Acute Assessment and plan: Delores Florez is a 77 y/o female with PMH AAA s/p repair on 07/16/2017, CAD, BAILEY , diastolic dysfunction and HTN who presented to [facility] on 07/18/2017 with complaints of SOB. She was found to have multifocal pneumonia and was admitted for IV ATB. 1. Pneumonia of unspecified organism: presented with shortness of breath. Chest CTA with multi-focal pneumonia, negative for pulmonary embolism. WBC normal. IV Zosyn, vanco and Levaquin started on admission. Recently hospitalized and 2016 MRSA swab positive. Continue IV Vanco for MRSA coverage, Zosyn for Pseudomonas coverage and Levaquin for atypicals/gram positive. Does not appear toxic or acute. Continue current IV ATB regimen. Sputum culture, urinary antigens, Restoril PCR pending. De-escalate ATB as cultures finalize and/or clinically improves. 2. AAA: per hx. S/p endograft repair on 07/16/[address] Kohli. Left groin incision healing. 3. CAD: per hx. Asymptomatic, denies chest pain. Cont home ASA, plavix, 4. HTN: per hx. BP controlled. Cont home BP medications. Monitor BP and titrate PRN 5. BAILEY: per hx. Cont home CPAP 6. DVT prophylaxis: Lovenox (2) AAA (abdominal aortic aneurysm) Current Visit: Yes Status: Chronic Qualifiers: Presence of rupture: without rupture Qualified Code(s): I71.4 - Abdominal aortic aneurysm, without rupture (3) CAD (coronary artery disease) Current Visit: No Status: Chronic Qualifiers: Coronary Disease-Associated Artery/Lesion type: [place] artery [place] vs. transplanted heart: [place] heart Associated angina: without angina Qualified Code(s): I25.10 - Atherosclerotic heart disease of [place] coronary artery without angina pectoris (4) Diabetes Current Visit: No Status: Acute Qualifiers: Diabetes mellitus type: other specified (including RM) Diabetes mellitus complication status: with unspecified complications Diabetes mellitus superintendent container terminal insulin use: unspecified superintendent container terminal insulin use status Qualified Code(s): E13.8 - Other specified diabetes mellitus with unspecified complications (5) DVT prophylaxis Current Visit: Yes Status: Acute - Subjective Interval history: Seen and examined at bedside, patient is new to me. Information obtained from chart review and patient report. Patient says she is still SOB but improved from yesterday. She is coughing and productive at times. No fever or chills. - Constitutional Vitals: Temp Pulse Resp BP Pulse Ox 98 F 61 20 117/69 100 07/19/17 08:00 07/19/17 08:00 07/19/17 08:00 07/19/17 08:00 07/19/17 04:21 General appearance: Present: cooperative, A&O X 3, no acute distress, answers questions appropriately - Head Head exam: Present: atraumatic, normocephalic - Eye Eye exam: Present: PERRL, conjuntiva pink, sclera anicteric Pupils: Present: PERRL - Neck Neck exam general surgery: Present: supple, trachea midline. Absent: lymphadenopathy - Respiratory Respiratory exam: Present: CTAB. Absent: accessory muscle use, rales, rhonchi, wheezes Additional comments: mildly dyspenic - Cardiovascular Cardiovascular exam: Present: RRR, +S1, +S2. Absent: diastolic murmur, gallop, rubs, systolic murmur - GI/Abdominal GI/Abdominal exam: Present: normal bowel sounds, soft, no peritoneal signs. Absent: distended, tenderness - Extremities Exam Extremities exam: Present: warm, radial pulses palpable and symmetrical. Absent : calf tenderness, cyanotic, pedal edema - Neurological Exam Neurological exam: Present: CN II-XII intact, oriented X3, no focal deficits. Absent: pronater drift, facial droop, speech deficit - Skin Skin exam: Present: dry, intact Internal Medicine: Result - Labs CBC & Chem 7: 07/19/17 04:59 07/19/17 04:59 Labs: Short CBC 07/19/17 Range/Units 04:59 WBC 9.4 (4.3-11.1) K/mcL Hgb 10.3 L (11.5-15.4) g/dL Hct 31.3 L (35.3-44.9) % Plt Count 177 (140-400) K/mcL Neutrophils # 8.3 (1.6-8.9) K/mcL BMP 07/19/17 04:59 Sodium 137 Potassium 4.3 Chloride 106 Carbon Dioxide 23 BUN 22 H Creatinine 1.38 H Glucose 204 H Calcium 9.0 - ABG Interpretation ABG results: PT/INR, D-dimer D-Dimer 2595 ng/mLFEU (0-500) H 07/18/17 09:49 Consult Discharge Plan - Plan Referrals: Edgar Nguyen Jr, MD [Primary Care Provider] - 07/22/17 1:45 pm
[2017-07-19] MEDS: Levofloxacin 250 MG/50 ML 250 MG/50 ML BAG IVPB SCH (12:00)
[2017-07-19] MEDS: Vancomycin 1,500 MG in D5% in Water 250 ML IVPB SCH (12:01)
[2017-07-19 12:28] LABS: Adenovirus Not Detected (Not Detect); Bordetella Pertussis Not Detected (Not Detect); Chlamydophila pneumoniae Not Detected (Not Detect); Coronavirus 229E Not Detected (Not Detect); Coronavirus HKU1 Not Detected (Not Detect); Coronavirus NL63 Not Detected (Not Detect); Coronavirus OC43 Not Detected (Not Detect); Human Metapneumovirus Not Detected (Not Detect); Human Rhinovirus/Enterovirus Not Detected (Not Detect); Influenza A Subtype 2009 H1 Not Detected (Not Detect); Influenza A Untypeable Not Detected (Not Detect); Influenza B Not Detected (Not Detect); Mycoplasma pneumoniae Not Detected (Not Detect); Parainfluenza Virus 1 Not Detected (Not Detect); Parainfluenza Virus 2 Not Detected (Not Detect); Parainfluenza Virus 3 Not Detected (Not Detect); Parainfluenza Virus 4 Not Detected (Not Detect); Respiratory Syncytial Virus Not Detected (Not Detect)
[2017-07-20] MEDS: Ipratropium Neb 0.5 MG NEBULIZER IH SCH ×4 (04:15→21:10)
[2017-07-20] MEDS ORDERED: *HR* Enoxaparin 30 MG/0.3 ML SYRINGE SQ SCH (06:00)
[2017-07-20] MEDS: Insulin LISPRO 300 UNITS/3 ML VIAL SQ SCH ×4 (08:16→21:20)
[2017-07-20] MEDS: Aspirin 81 MG TAB.CHEW PO SCH (09:50)
[2017-07-20] MEDS: Metoprolol XL (24 HR) Succ 50 MG TAB.ER.24H PO SCH (09:50)
[2017-07-20] MEDS: Insulin DETEMIR 100 UNIT/ML X5UNITS SQ SCH (09:51)
[2017-07-20] MEDS: Vancomycin 1,500 MG in D5% in Water 250 ML IVPB SCH (12:19)
[2017-07-20] MEDS ORDERED: Melatonin 3 MG TABLET PO PRN (13:07)
[2017-07-20] MEDS: Levalbuterol Neb 1.25 MG/3 ML IH SCH ×3 (14:32→21:10)
[2017-07-20] MEDS: Levofloxacin 250 MG/50 ML 250 MG/50 ML BAG IVPB SCH (16:22)
--- NOTE | 2017-07-20 17:47 | Internal Med Progress Note ---
Date of Encounter: 07/20/17 Time of Encounter: 13:30 - Assessment and plan (1) HCAP (healthcare-associated pneumonia) Current Visit: No Status: Acute Assessment and plan: Delores Florez is a 77 y/o female with PMH AAA s/p repair on 07/16/2017, CAD, BAILEY , diastolic dysfunction and HTN who presented to [facility] on 07/18/2017 with complaints of SOB. She was found to have multifocal pneumonia and was admitted for IV ATB. 1. Pneumonia of unspecified organism: presented with shortness of breath. Chest CTA with multi-focal pneumonia, negative for pulmonary embolism. WBC normal. IV Zosyn, vanco and Levaquin started on admission. Recently hospitalized and 2016 MRSA swab positive. Continue IV Vanco for MRSA coverage, Zosyn for Pseudomonas coverage and Levaquin for atypicals/gram positive. Does not appear toxic or acute. Continue current IV ATB regimen. Sputum culture, urinary antigens negative. Restoril PCR pending. De-escalate ATB as cultures finalize and/or clinically improves. MRSA a nasal swab pending, if negative discontinue vancomycin. If he needs to improve on 07/21 we will discontinue Zosyn. 2. AAA: per hx. S/p endograft repair on 07/16/[address] aWde. Left groin incision healing. Attempted to notify vascular of patient's admission however no vascular on-call for the weekend. 3. CAD: per hx. Asymptomatic, denies chest pain. Cont home ASA, plavix, 4. HTN: per hx. BP controlled. Cont home BP medications. Monitor BP and titrate PRN 5. BAILEY: per hx. Cont home CPAP 6. DVT prophylaxis: Heparin 7. CKD: per hx. renal function appears at baseline. Avoid nephrotoxic agents as possible. Intermittently monitor renal function. (2) AAA (abdominal aortic aneurysm) Current Visit: Yes Status: Chronic Qualifiers: Presence of rupture: without rupture Qualified Code(s): I71.4 - Abdominal aortic aneurysm, without rupture (3) CAD (coronary artery disease) Current Visit: No Status: Chronic Qualifiers: Coronary Disease-Associated Artery/Lesion type: [place] artery [place] vs. transplanted heart: [place] heart Associated angina: without angina Qualified Code(s): I25.10 - Atherosclerotic heart disease of [place] coronary artery without angina pectoris (4) Diabetes Current Visit: No Status: Acute Qualifiers: Diabetes mellitus type: other specified (including RM) Diabetes mellitus complication status: with unspecified complications Diabetes mellitus half-way insulin use: unspecified half-way insulin use status Qualified Code(s): E13.8 - Other specified diabetes mellitus with unspecified complications (5) DVT prophylaxis Current Visit: Yes Status: Acute - Subjective Interval history: Seen and examined at bedside; patient sitting up in bed eating lunch. Said she had a rough night last night with her breathing. Breathing is somewhat improved on my exam but she still complains of more shortness of breath than usual with exertion. No chest pain. Says she did not sleep well last night and also because of insomnia asking for something help her sleep. - Constitutional Vitals: Temp Pulse Resp BP Pulse Ox 98.0 F 66 15 137/44 99 07/20/17 16:45 07/20/17 16:45 07/20/17 16:45 07/20/17 16:45 07/20/17 16:45 General appearance: Present: cooperative, A&O X 3, no acute distress, answers questions appropriately - Head Head exam: Present: atraumatic, normocephalic - Eye Eye exam: Present: PERRL, conjuntiva pink, sclera anicteric Pupils: Present: PERRL - Neck Neck exam general surgery: Present: supple, trachea midline. Absent: lymphadenopathy - Respiratory Respiratory exam: Present: CTAB, rhonchi. Absent: accessory muscle use, rales, wheezes Additional comments: Rhonchi bilateral lower lobes, worse on the right. Appears mildly dyspneic. - Cardiovascular Cardiovascular exam: Present: RRR, +S1, +S2. Absent: diastolic murmur, gallop, rubs, systolic murmur - GI/Abdominal GI/Abdominal exam: Present: normal bowel sounds, soft, no peritoneal signs. Absent: distended, tenderness - Extremities Exam Extremities exam: Present: warm, radial pulses palpable and symmetrical. Absent : calf tenderness, cyanotic, pedal edema - Neurological Exam Neurological exam: Present: CN II-XII intact, oriented X3, no focal deficits. Absent: pronater drift, facial droop, speech deficit - Skin Skin exam: Present: dry, intact Internal Medicine: Result - Labs CBC & Chem 7: 07/19/17 04:59 07/19/17 04:59 - ABG Interpretation ABG results: PT/INR, D-dimer D-Dimer 2595 ng/mLFEU (0-500) H 07/18/17 09:49 Consult Discharge Plan - Plan Referrals: Edgar Nguyen Jr, MD [Primary Care Provider] - 07/22/17 1:45 pm
[2017-07-20] MEDS: *HR* Heparin 5,000 UNIT/ML VIAL SQ SCH (21:45)
[2017-07-21 04:05] LABS: Hematocrit 31.1 % (35.3-44.9); Hemoglobin 10.2 g/dL (11.5-15.4); Mean Corpuscular HGB Conc 32.8 g/dL (31.6-35.5); Mean Corpuscular Hemoglobin 30.2 pg (28.0-33.3); Mean Platelet Volume 9.7 fL (9.4-12.4); Platelet Count 230 K/mcL (140-400); Red Blood Count 3.38 M/mcL (3.82-4.97); Red Cell Distribution Width 14.2 % (11.5-14.5)
[2017-07-21 04:17] LABS: Albumin 2.9 g/dL (3.5-5.0); Bilirubin,Total 0.4 mg/dL (0.2-1.2); Globulin 2.9 g/dL (2.4-3.5); Potassium 4.3 mEq/L (3.5-4.5); Total Protein 5.8 g/dL (6.0-8.3)
[2017-07-21] MEDS: Levalbuterol Neb 1.25 MG/3 ML IH SCH ×4 (05:07→19:44)
[2017-07-21] MEDS: Ipratropium Neb 0.5 MG NEBULIZER IH SCH ×4 (05:07→19:44)
[2017-07-21] MEDS: *HR* Heparin 5,000 UNIT/ML VIAL SQ SCH ×3 (05:57→21:42)
[2017-07-21] MEDS: Insulin LISPRO 300 UNITS/3 ML VIAL SQ SCH ×4 (08:27→21:35)
[2017-07-21] MEDS: Insulin DETEMIR 100 UNIT/ML X5UNITS SQ SCH (10:05)
[2017-07-21] MEDS: Aspirin 81 MG TAB.CHEW PO SCH (10:11)
[2017-07-21] MEDS: Metoprolol XL (24 HR) Succ 50 MG TAB.ER.24H PO SCH (10:11)
[2017-07-21] MEDS ORDERED: Levofloxacin 750 MG/150 ML 750 MG/150 ML BAG IVPB SCH (11:00)
[2017-07-21] MEDS ORDERED: Aminoglycoside Consult 1 EACH MC ONE (13:54)
--- NOTE | 2017-07-21 15:17 | Internal Med Progress Note ---
Date of Encounter: 07/21/17 Time of Encounter: 11:15 - Assessment and plan (1) HCAP (healthcare-associated pneumonia) Current Visit: No Status: Acute Assessment and plan: Delores Florez is a 77 y/o female with PMH AAA s/p repair on 07/16/2017, CAD, BAILEY , diastolic dysfunction and HTN who presented to [facility] on 07/18/2017 with complaints of SOB. She was found to have multifocal pneumonia and was admitted for IV ATB. 1. Pneumonia of unspecified organism: presented with shortness of breath. Chest CTA with multi-focal pneumonia, negative for pulmonary embolism. WBC normal. IV Zosyn, vanco and Levaquin started on admission. Recently hospitalized and 2016 MRSA swab positive. Continue IV Vanco for MRSA coverage, Zosyn for Pseudomonas coverage and Levaquin for atypicals/gram positive. Does not appear toxic or acute. Continue current IV ATB regimen. Sputum culture, urinary antigens and respiratory PCR negative. Stop vancomycin and Zosyn. Change Levaquin to 750 mg every 48 hours for a total 7 day treatment for disease (due to renal function). 2. Dyspnea: Wears O2 at home. 05/2017 TTE with EF 60% and mild diastolic dysfunction. Does not appear overloaded on exam. BNP elevated, chest CTA negative for pulmonary embolism. Likely secondary to underlying pneumonia. Repeat limited echo pending. 3. AAA: per hx. S/p endograft repair on 07/16/[address] Wade. Left groin incision healing. Attempted to notify vascular of patient's admission however no vascular on-call for the weekend. 4. CAD: per hx. Asymptomatic, denies chest pain. Cont home ASA, plavix, 5. HTN: per hx. BP controlled. Cont home BP medications. Monitor BP and titrate PRN 6. BAILEY: per hx. Cont home CPAP 7. DVT prophylaxis: Heparin 8. CKD: per hx. renal function appears at baseline. Avoid nephrotoxic agents as possible. Intermittently monitor renal function. Disposition: Return to home. Likely on 07/22/2017 (2) AAA (abdominal aortic aneurysm) Current Visit: Yes Status: Chronic Qualifiers: Presence of rupture: without rupture Qualified Code(s): I71.4 - Abdominal aortic aneurysm, without rupture (3) CAD (coronary artery disease) Current Visit: No Status: Chronic Qualifiers: Coronary Disease-Associated Artery/Lesion type: [place] artery [place] vs. transplanted heart: [place] heart Associated angina: without angina Qualified Code(s): I25.10 - Atherosclerotic heart disease of [place] coronary artery without angina pectoris (4) Diabetes Current Visit: No Status: Acute Qualifiers: Diabetes mellitus type: other specified (including RM) Diabetes mellitus complication status: with unspecified complications Diabetes mellitus residential insulin use: unspecified residential insulin use status Qualified Code(s): E13.8 - Other specified diabetes mellitus with unspecified complications (5) DVT prophylaxis Current Visit: Yes Status: Acute - Subjective Interval history: Seen and examined at bedside. She is sitting up in chair at bedside. Says she still was not feeling well. Reports feeling short of breath with exertion. Says she has to stop to catch her breath. Still did not sleep well last night but she did not ask for melatonin. She does not feel she is ready to be discharged home yet. - Constitutional Vitals: Temp Pulse Resp BP Pulse Ox 97.7 F 65 16 132/76 100 07/21/17 12:22 07/21/17 12:22 07/21/17 12:22 07/21/17 12:22 07/21/17 12:22 General appearance: Present: cooperative, A&O X 3, no acute distress, answers questions appropriately - Head Head exam: Present: atraumatic, normocephalic - Eye Eye exam: Present: PERRL, conjuntiva pink, sclera anicteric Pupils: Present: PERRL - Neck Neck exam general surgery: Present: supple, trachea midline. Absent: lymphadenopathy - Respiratory Respiratory exam: Present: CTAB, rhonchi (Bilateral lower lobe rhonchi. O2 on via nasal cannula.). Absent: accessory muscle use, rales, wheezes - Cardiovascular Cardiovascular exam: Present: RRR, +S1, +S2. Absent: diastolic murmur, gallop, rubs, systolic murmur - GI/Abdominal GI/Abdominal exam: Present: normal bowel sounds, soft, no peritoneal signs. Absent: distended, tenderness - Extremities Exam Extremities exam: Present: warm, radial pulses palpable and symmetrical. Absent : calf tenderness, cyanotic, pedal edema - Neurological Exam Neurological exam: Present: CN II-XII intact, oriented X3, no focal deficits. Absent: pronater drift, facial droop, speech deficit - Skin Skin exam: Present: dry, intact Internal Medicine: Result - Labs CBC & Chem 7: 07/21/17 03:42 07/21/17 03:42 Labs: Short CBC 07/21/17 Range/Units 03:42 WBC 8.2 (4.3-11.1) K/mcL Hgb 10.2 L (11.5-15.4) g/dL Hct 31.1 L (35.3-44.9) % Plt Count 230 (140-400) K/mcL BMP 07/21/17 03:42 Sodium 139 Potassium 4.3 Chloride 107 Carbon Dioxide 24 BUN 28 H Creatinine 1.28 H Glucose 157 H Calcium 9.0 Liver Function 07/21/17 Range/Units 03:42 Total Bilirubin 0.4 (0.2-1.2) mg/dL AST 13 (5-34) Units/L ALT 25 (0-55) Units/L Alkaline Phosphatase 80 (38-126) Units/L Albumin 2.9 L (3.5-5.0) g/dL - ABG Interpretation ABG results: PT/INR, D-dimer D-Dimer 2595 ng/mLFEU (0-500) H 07/18/17 09:49 Consult Discharge Plan - Plan Referrals: Edgar Nguyen Jr, MD [Primary Care Provider] - 07/22/17 1:45 pm
[2017-07-21] MEDS ORDERED: Ondansetron 4 MG/2 ML VIAL IVP PRN (18:15)
[2017-07-22 04:16] LABS: Hematocrit 30.9 % (35.3-44.9); Hemoglobin 10.1 g/dL (11.5-15.4); Mean Corpuscular HGB Conc 32.7 g/dL (31.6-35.5); Mean Corpuscular Hemoglobin 29.6 pg (28.0-33.3); Mean Corpuscular Volume 90.6 fL (83.0-100.0); Mean Platelet Volume 9.6 fL (9.4-12.4); Platelet Count 230 K/mcL (140-400); Red Blood Count 3.41 M/mcL (3.82-4.97)
[2017-07-22] MEDS: Levalbuterol Neb 1.25 MG/3 ML IH SCH ×2 (04:17→10:24)
[2017-07-22] MEDS: Ipratropium Neb 0.5 MG NEBULIZER IH SCH ×2 (04:17→10:23)
[2017-07-22 04:30] LABS: Albumin 2.7 g/dL (3.5-5.0); Albumin/Globulin Ratio 0.9 (1.1-2.2); Bilirubin,Total 0.5 mg/dL (0.2-1.2); Calcium 8.9 mg/dL (8.6-10.8); Globulin 2.9 g/dL (2.4-3.5); Potassium 4.4 mEq/L (3.5-4.5); Total Protein 5.6 g/dL (6.0-8.3)
[2017-07-22] MEDS: *HR* Heparin 5,000 UNIT/ML VIAL SQ SCH (06:32)
[2017-07-22] MEDS: Metoprolol XL (24 HR) Succ 50 MG TAB.ER.24H PO SCH (08:08)
[2017-07-22] MEDS: Aspirin 81 MG TAB.CHEW PO SCH (08:08)
[2017-07-22] MEDS: Insulin LISPRO 300 UNITS/3 ML VIAL SQ SCH ×2 (08:15→11:23)
[2017-07-22] MEDS: Insulin DETEMIR 100 UNIT/ML X5UNITS SQ SCH (08:49)
--- NOTE | 2017-07-22 09:52 | Discharge Summary ---
Date of Encounter: 07/22/17 Time of Encounter: 09:44 - Discharge Diagnosis (1) HCAP (healthcare-associated pneumonia) Priority: Primary Status: Acute Comments: Delores Florez is a 77 y/o female with PMH AAA s/p repair on 07/16/2017, CAD, BAILEY , diastolic dysfunction and HTN who presented to [facility] on 07/18/2017 with complaints of SOB. She was found to have multifocal pneumonia and was admitted for IV ATB. She improved with ATB and was discharged home in stable condition with outpatient follow-up. 1. Pneumonia of unspecified organism: presented with shortness of breath. Chest CTA with multi-focal pneumonia, negative for pulmonary embolism. WBC normal. Does not appear toxic or acute. Initially treated with IV Vanco for MRSA coverage, Zosyn for Pseudomonas coverage and Levaquin for atypicals/gram positive. Sputum culture, urinary antigens and respiratory PCR negative. ATB de-escalated to Levaquin to 750 mg every 48 hours (total 7 day course). Recommend repeat imaging once treatment completed to follow-up with resolution. Can follow up with PCP. 2. COPD: per hx. Wears O2 PRN at home. Now with intermittent dyspnea. No wheezing, do not suspect exacerbation. Chest CTA negative for pulmonary embolism. Repeat limited echo with EF 55-60%. Intermittent dyspnea likely secondary to underlying COPD and pneumonia. Back to baseline at time of discharge. Continue home O2 PRN. Recommend patient establishing care with collar stay fuser tender. 3. AAA: per hx. S/p endograft repair on 07/16/[address] Guzman. Left groin incision without s/sx infection. Can follow-up with Dr. Guzman as previously planned 4. Sebaceous cyst: Chest CTA with sebaceous cyst involving the medial aspect of the left breast. No acute needs. Can follow-up with PCP 4. CAD: per hx. 05/2017 [facility] with triple vessel disease, medical management recommended at that time. Asymptomatic, denied chest pain. Cont home ASA, plavix. Follow-up with cardiology as previously planned 5. HTN: per hx. BP controlled. Cont home BP medications. 6. BAILEY: per hx. Cont home CPAP 7. CKD: per hx. renal function at baseline. Avoid nephrotoxic agents as possible. Can follow-up with PCP (2) AAA (abdominal aortic aneurysm) Priority: Primary Status: Acute Qualifiers: Presence of rupture: without rupture Qualified Code(s): I71.4 - Abdominal aortic aneurysm, without rupture (3) CAD (coronary artery disease) Priority: Secondary Status: Chronic Qualifiers: Coronary Disease-Associated Artery/Lesion type: [place] artery [place] vs. transplanted heart: [place] heart Associated angina: without angina Qualified Code(s): I25.10 - Atherosclerotic heart disease of [place] coronary artery without angina pectoris (4) Diabetes Priority: Primary Status: Acute Qualifiers: Diabetes mellitus type: other specified (including RM) Diabetes mellitus complication status: with unspecified complications Diabetes mellitus chcf insulin use: unspecified chcf insulin use status Qualified Code(s): E13.8 - Other specified diabetes mellitus with unspecified complications - Discharge Medications Prescriptions: Promethazine [Phenergan] 12.5 mg PO Q6HR PRN #30 tablet PRN Reason: Nausea Ipratropium/Albuterol Sulfate [Combivent Respimat Inhal [place]] 4 gm IH Q6H PRN # 1 aer.w.adap PRN Reason: Shortness Of Breath/Wheezing levoFLOXacin [Levaquin] 750 mg PO Q48H #7 tablet Home Medications: Aspirin 81 mg PO DAILY 02/07/16 [History] Metoprolol XL (24 HR) Succ [Toprol Xl] 100 mg PO DAILY 08/21/16 [History] Insulin Glargine,Hum.rec.anlog [Lantus Solostar] 25 unit SQ DAILY 30 Days insuln.pen 09/14/16 [Rx] Furosemide [Lasix] 40 mg PO DAILY PRN 10/01/16 [History] Insulin LISPRO [HumaLOG] 2 - 12 units SQ TIDAC 11/11/16 [History] Clopidogrel [Plavix] 75 mg PO DAILY 07/16/17 [History] Ipratropium/Albuterol Sulfate [Combivent Respimat Inhal [place]] 4 gm IH Q6H PRN # 1 aer.w.adap 07/22/17 [Rx] Promethazine [Phenergan] 12.5 mg PO Q6HR PRN #30 tablet 07/22/17 [Rx] levoFLOXacin [Levaquin] 750 mg PO Q48H #7 tablet 07/22/17 [Rx] Allergies/Adverse Reactions: 3 Allergy/AdvReac Type Severity Reaction Status Date / Time codeine Allergy See Verified 07/18/17 07:22 Comments acetaminophen AdvReac Nausea Verified 07/18/17 07:22 [From Darvocet-N] morphine AdvReac Nausea Verified 07/18/17 07:22 propoxyphene AdvReac Nausea Verified 07/18/17 07:22 [From Darvocet-N] Procedures/tests Complete & Pending: Procedures Performed prior 72 hours Category Date Time Status EV limited echocardiogram Routine Y 07/21/17 11:09 Completed Date of admission: 07/18/17 13:03 Primary care physician: Edgar Nguyen Jr, MD Consults: 07/19/17 11:33 Consult to Supervisor [employer] [CONS] Routine Reason for SW Consult: readmit Discharging clinician: Rubia Layne Anticipated date of discharge: 07/22/17 - Patient Status Disposition: Home Health Service Condition: Good Functional capacity at discharge: uses cane/walker Overall status at discharge: patient is progressing back to baseline - Discharge Instructions Instructions: Diabetes Mellitus Type 2 in Adults (DC), Chronic Obstructive Pulmonary Disease (DC), Endovascular Abdominal Aortic Aneurysm Repair (DC), Community-acquired Pneumonia (DC), Pneumonia (DC) Follow Up With: Edgar Nguyen Jr, MD [Primary Care Provider] - 07/22/17 1:45 pm Rosalie Bull MD [Partnered Physician] - (Appointment has been webrequested. our offices will call you with a follow up appointment time and date. Thank You. ) Michael Guzman MD [Partnered Physician] - Indra Bocanegra MD [Partnered Physician] - Additional Instructions: Follow Up Appointment 1. Please call your Primary Care's office within 24 hours or next business day to schedule a follow up appointment. 2. Please keep your follow-up appointment with Dr. Guzman as previously planned 3. Please establish care with a Pulmonlogist for further evaluation of suspected COPD 4. Please follow-up with Cardiology within 1-2 weeks. - Diet and Activity Activity: ambulate only with your walker, increase activity as tolerated Diet: advance to your usual diet, low fat, low cholesterol Hospital course: Ms. Florez is a 77 year old female - Time Spent with Patient Total time spent providing and/or coordinating discharge services: - Constitutional Vitals: Temp Pulse Resp BP Pulse Ox 99.0 F 65 17 107/59 98 07/22/17 07:27 07/22/17 07:27 07/22/17 07:27 07/22/17 07:27 07/22/17 07:27 General appearance: Present: cooperative, A&O X 3, no acute distress, answers questions appropriately
[2017-07-22 11:16] VITALS: BP 103/66
--- NOTE | 2017-07-22 15:02 | Physician Discharge Referral ---
Home Health/Hosp Referral Info Transfer to: Home Health Attending Provider: Rubia Layne Provider in Charge Post Discharge: PCP - Diagnosis (1) HCAP (healthcare-associated pneumonia) Status: Acute (2) AAA (abdominal aortic aneurysm) Status: Acute (3) CAD (coronary artery disease) Status: Chronic (4) Diabetes Status: Acute - Respiratory Orders Oxygen / L per min (2) Smoking Cessation: Smoking cessation has been advised. For more information, call the [place] Tobacco Quit Line at 1-208-DSKA-NOW. - Diet/Nutrition Diet/Nutrition Orders: No Added Salt (BASSEM), Cardiac - Activity Activity Orders: Up ad almita - Services Needed Following services are medically necessary services: Physical Therapy, Occupational Therapy - Transfer Medications Prescriptions: Promethazine [Phenergan] 12.5 mg PO Q6HR PRN #30 tablet PRN Reason: Nausea Ipratropium/Albuterol Sulfate [Combivent Respimat Inhal [place]] 4 gm IH Q6H PRN # 1 aer.w.adap PRN Reason: Shortness Of Breath/Wheezing levoFLOXacin [Levaquin] 750 mg PO Q48H #7 tablet Home Medications: Aspirin 81 mg PO DAILY 02/07/16 [History] Metoprolol XL (24 HR) Succ [Toprol Xl] 100 mg PO DAILY 08/21/16 [History] Insulin Glargine,Hum.rec.anlog [Lantus Solostar] 25 unit SQ DAILY 30 Days insuln.pen 09/14/16 [Rx] Furosemide [Lasix] 40 mg PO DAILY PRN 10/01/16 [History] Insulin LISPRO [HumaLOG] 2 - 12 units SQ TIDAC 11/11/16 [History] Clopidogrel [Plavix] 75 mg PO DAILY 07/16/17 [History] Ipratropium/Albuterol Sulfate [Combivent Respimat Inhal [place]] 4 gm IH Q6H PRN # 1 aer.w.adap 07/22/17 [Rx] Promethazine [Phenergan] 12.5 mg PO Q6HR PRN #30 tablet 07/22/17 [Rx] levoFLOXacin [Levaquin] 750 mg PO Q48H #7 tablet 07/22/17 [Rx] Allergies/Adverse Reactions: 3 Allergy/AdvReac Type Severity Reaction Status Date / Time codeine Allergy See Verified 07/18/17 07:22 Comments acetaminophen AdvReac Nausea Verified 07/18/17 07:22 [From Darvocet-N] morphine AdvReac Nausea Verified 07/18/17 07:22 propoxyphene AdvReac Nausea Verified 07/18/17 07:22 [From Darvocet-N] Certification: Further, I certify that my clinical findings support that this patient is homebound (i.e. absences from home require considerable and taxing effort and are for medical reasons or jehovah's witness services or infrequently or short duration when for other reasons) because: Homebound Reason: Patient requires assistance of a person or device to safely leave home Attestation: My signature below is to certify that this patient is under my care and that I, or nurse practitioner, or a physician's geriatric assistant working with me, has a face-to -face encounter with this patient.
== END 2017-07-22 13:55 | disposition home health service (06) ==
LOC: EMEROO 07:17 → 3BNU 07:17
PROVIDERS: ADMIT Internal Medicine; ATTEND Registered Nurse

== ENCOUNTER 2017-09-21 10:48 | Inpatient (IN) ==
[2017-09-21] MEDS ORDERED: 0.9 % Sodium Chloride 500 ML IVC ONE (11:06)
[2017-09-21] MEDS ORDERED: Ondansetron 4 MG/2 ML VIAL IVP ONE ×2 (11:06→13:05)
--- NOTE | 2017-09-21 11:14 | Emergency Department Note ---
Disposition Clinical Impression: Community acquired pneumonia Qualifiers: Laterality: right Lung location: upper lobe of lung Qualified Code(s): J18.1 - Lobar pneumonia, unspecified organism Nausea and vomiting Qualifiers: Vomiting type: unspecified Vomiting Intractability: non-intractable Qualified Code(s): R11.2 - Nausea with vomiting, unspecified Disposition: Admitted As Inpatient Condition: Good Time of Disposition: 13:54 General Adult HPI - General Chief complaint: ED Nausea/Vomiting/Diarrhea Stated complaint: n/v/blood in emesis Time Seen by Provider: 09/21/17 10:50 Source: patient Limitations: no limitations Nursing Notes Reviewed: Yes Vital Signs Reviewed: Yes - History of Present Illness HPI Narrative: 77-year-old female who reports that she developed nausea and a cough last night. She has not vomited. She has noticed that there is been a productive cough with some blood in it. She does report that 2 days ago she had "stem cell injection "into her right knee. She is concerned she is having an allergic reaction to this. She is not having any knee pain. No redness or swelling around the knee. She is not having any abdominal pain or skin rash. She does have a history of significant coronary arterial disease. She denies having any current chest pain. Denies having a fever. Radiation: non-radiation Pain Severity: moderate Pain Scale: 7 Improves with: nothing Worsens with: nothing Associated symptoms: Reports: denies other symptoms Treatments Prior to Arrival: none - Related Data Home Medications Medication Instructions Recorded Confirmed Aspirin 81 mg PO DAILY 02/07/16 09/21/17 Metoprolol XL (24 HR) Succ [Toprol 100 mg PO DAILY 08/21/16 09/21/17 Xl] Furosemide [Lasix] 40 mg PO DAILY PRN 10/01/16 09/21/17 Insulin LISPRO [HumaLOG] 2 - 12 units SQ TIDAC 11/11/16 09/21/17 Clopidogrel [Plavix] 75 mg PO DAILY 07/16/17 09/21/17 Omeprazole [PriLOSEC] 40 mg PO DAILY 09/21/17 09/21/17 Sertraline [Zoloft] 50 mg PO DAILY 09/21/17 09/21/17 Previous Rx's Medication Instructions Recorded Insulin Glargine,Hum.rec.anlog 25 unit SQ DAILY 30 Days 09/14/16 [Lantus Solostar] insuln.pen Allergies Allergy/AdvReac Type Severity Reaction Status Date / Time codeine Allergy See Verified 07/18/17 07:22 Comments acetaminophen AdvReac Nausea Verified 07/18/17 07:22 [From Darvocet-N] morphine AdvReac Nausea Verified 07/18/17 07:22 propoxyphene AdvReac Nausea Verified 07/18/17 07:22 [From Darvocet-N] All systems ED: reviewed and negative except as stated. Constitutional: Denies: fever ENT ED: Denies: throat pain Cardiovascular: Denies: chest pain Respiratory: Reports: cough, dyspnea, hemoptysis Gastrointestinal: Reports: nausea. Denies: vomiting, diarrhea Musculoskeletal: Denies: back pain Integumentary: Denies: rash Neurological: Denies: headache Past Medical History - Past Medical History Medical history: Reports: aortic aneurysm, arthritis, coronary artery disease, diabetes, myocardial infarction, renal disease Surgical history: Reports: appendectomy, cholecystectomy, colectomy, coronary bypass (CABG), heart valve replacement, hysterectomy, knee replacement, other, pacemaker Psychiatric history: Reports: anxiety, depression - Social History Smoking Status: Never smoker Smokeless Tobacco Status: No Alcohol use: Reports: none Drug use: Reports: none Physical Exam - General Limitations: no limitations General appearance: alert, in no apparent distress - Head Head exam: atraumatic - Eye Eye exam: Present: normal appearance, PERRL - ENT ENT exam: normal exam, normal oropharynx - Neck Neck exam: Present: normal inspection - Chest Chest inspection: Present: normal inspection - Respiratory Respiratory exam: Present: other (Crackles at the right lung base). Absent: respiratory distress - Cardiovascular Cardiovascular exam: Present: regular rate, normal rhythm - Abdominal Exam Abdominal exam: Present: soft, Non-Tender - Extremities Exam Extremities exam: Present: other (Small contusion at the injection site of the right knee.) - Back Exam Back exam: Present: normal inspection - Neurological Exam Neurological exam: Present: alert, oriented X3 - Psychiatric Psychiatric exam: Present: normal affect, normal mood Course Course Narrative: CT abdomen negative for acute pathology. CT chest shows a pneumonia which is consistent with her physical exam. Crackles in RLL, with leukocytosis, and dyspnea. No recent hospitalizations. Will treat for CAP. Vitals are stable. Lactate is mildly elevated so will give fluids. We will admit for community-acquired pneumonia. Levaquin given. Vital Signs Temperature 99.6 F 09/21/17 10:49 Pulse Rate 99 09/21/17 10:49 Respiratory Rate 22 09/21/17 10:49 Blood Pressure 135/79 09/21/17 10:49 O2 Sat by Pulse Oximetry 94 09/21/17 10:49 Temperature 99.6 F 09/21/17 10:49 Pulse Rate 86 09/21/17 13:30 Respiratory Rate 16 09/21/17 13:30 Blood Pressure 115/57 09/21/17 13:30 O2 Sat by Pulse Oximetry 100 09/21/17 13:30 Oxygen Delivery Oxygen Delivery Nasal Cannula Medical Decision Making - Medical Records Medical records reviewed: Yes I reviewed the patient's medical records. - Lab Data Lab results reviewed: Yes I reviewed the patient's lab results. Result diagrams: 09/21/17 11:26 09/21/17 11:26 Lab Results 09/21/17 09/21/17 09/21/17 Range/Units 11:26 11:26 11:26 WBC 28.2 H (4.3-11.1) K/mcL RBC 4.28 (3.82-4.97) M/mcL Hgb 12.2 (11.5-15.4) g/dL Hct 38.2 (35.3-44.9) % MCV 89.3 (83.0-100.0) fL MCH 28.5 (28.0-33.3) pg MCHC 31.9 (31.6-35.5) g/dL RDW 14.8 H (11.5-14.5) % Plt Count 242 (140-400) K/mcL MPV 9.9 (9.4-12.4) fL Immature Gran % 0.9 (0-4) % Seg Neutrophils % 93.1 % Lymphocytes % 1.7 % Monocytes % 4.1 % Eosinophils % 0.0 % Basophils % 0.2 % Neutrophils # 26.3 H (1.6-8.9) K/mcL Lymphocytes # 0.5 L (0.6-4.6) K/mcL Monocytes # 1.2 (0.0-1.3) K/mcL Eosinophils # 0.0 (0.0-0.6) K/mcL Basophils # 0.1 (0.0-0.2) K/mcL PT (9.4-12.1) Seconds INR APTT (26.0-36.0) Seconds Sodium 137 (136-145) mEq/L Potassium 4.1 (3.5-5.1) mEq/L Chloride 105 (98-107) mEq/L Carbon Dioxide 23 (23-29) mEq/L BUN 18 (8-23) mg/dL Creatinine 1.53 H (0.60-1.20) mg/dL Est GFR ( Amer) 40 L (> 60) Est GFR (Non-Af Amer) 33 L (> 60) BUN/Creatinine Ratio 12 (6-26) Glucose 218 H (70-105) mg/dL Calculated Osmolality 293 (280-300) Lactic Acid (0.5-2.2) mmol/L Calcium 9.3 (8.6-10.3) mg/dL Total Bilirubin (0.3-1.0) mg/dL Direct Bilirubin (0.0-0.2) mg/dL Indirect Bilirubin (0.0-1.2) mg/dL AST (13-39) Units/L ALT (7-52) Units/L Alkaline Phosphatase (34-104) Units/L Troponin I (< 0.04) ng/mL B-Natriuretic Peptide 308 H (Less than 100) pg/mL Serum Total Protein (6.4-8.9) g/dL Albumin (3.5-5.7) g/dL Globulin (2.4-3.5) g/dL Albumin/Globulin Ratio (1.1-2.2) Lipase (11-82) Units/L 09/21/17 09/21/17 09/21/17 Range/Units 11:26 11:26 11:26 WBC (4.3-11.1) K/mcL RBC (3.82-4.97) M/mcL Hgb (11.5-15.4) g/dL Hct (35.3-44.9) % MCV (83.0-100.0) fL MCH (28.0-33.3) pg MCHC (31.6-35.5) g/dL RDW (11.5-14.5) % Plt Count (140-400) K/mcL MPV (9.4-12.4) fL Immature Gran % (0-4) % Seg Neutrophils % % Lymphocytes % % Monocytes % % Eosinophils % % Basophils % % Neutrophils # (1.6-8.9) K/mcL Lymphocytes # (0.6-4.6) K/mcL Monocytes # (0.0-1.3) K/mcL Eosinophils # (0.0-0.6) K/mcL Basophils # (0.0-0.2) K/mcL PT 11.1 (9.4-12.1) Seconds INR 1.0 APTT 25.8 L (26.0-36.0) Seconds Sodium (136-145) mEq/L Potassium (3.5-5.1) mEq/L Chloride (98-107) mEq/L Carbon Dioxide (23-29) mEq/L BUN (8-23) mg/dL Creatinine (0.60-1.20) mg/dL Est GFR ( Amer) (> 60) Est GFR (Non-Af Amer) (> 60) BUN/Creatinine Ratio (6-26) Glucose (70-105) mg/dL Calculated Osmolality (280-300) Lactic Acid (0.5-2.2) mmol/L Calcium (8.6-10.3) mg/dL Total Bilirubin 0.7 (0.3-1.0) mg/dL Direct Bilirubin 0.2 (0.0-0.2) mg/dL Indirect Bilirubin 0.5 (0.0-1.2) mg/dL AST 10 L (13-39) Units/L ALT 12 (7-52) Units/L Alkaline Phosphatase 72 (34-104) Units/L Troponin I < 0.03 (< 0.04) ng/mL B-Natriuretic Peptide (Less than 100) pg/mL Serum Total Protein 6.6 (6.4-8.9) g/dL Albumin 4.1 (3.5-5.7) g/dL Globulin 2.5 (2.4-3.5) g/dL Albumin/Globulin Ratio 1.6 (1.1-2.2) Lipase 11 (11-82) Units/L 12/23/17 Range/Units 12:19 WBC (4.3-11.1) K/mcL RBC (3.82-4.97) M/mcL Hgb (11.5-15.4) g/dL Hct (35.3-44.9) % MCV (83.0-100.0) fL MCH (28.0-33.3) pg MCHC (31.6-35.5) g/dL RDW (11.5-14.5) % Plt Count (140-400) K/mcL MPV (9.4-12.4) fL Immature Gran % (0-4) % Seg Neutrophils % % Lymphocytes % % Monocytes % % Eosinophils % % Basophils % % Neutrophils # (1.6-8.9) K/mcL Lymphocytes # (0.6-4.6) K/mcL Monocytes # (0.0-1.3) K/mcL Eosinophils # (0.0-0.6) K/mcL Basophils # (0.0-0.2) K/mcL PT (9.4-12.1) Seconds INR APTT (26.0-36.0) Seconds Sodium (136-145) mEq/L Potassium (3.5-5.1) mEq/L Chloride (98-107) mEq/L Carbon Dioxide (23-29) mEq/L BUN (8-23) mg/dL Creatinine (0.60-1.20) mg/dL Est GFR ( Amer) (> 60) Est GFR (Non-Af Amer) (> 60) BUN/Creatinine Ratio (6-26) Glucose (70-105) mg/dL Calculated Osmolality (280-300) Lactic Acid 2.6 H (0.5-2.2) mmol/L Calcium (8.6-10.3) mg/dL Total Bilirubin (0.3-1.0) mg/dL Direct Bilirubin (0.0-0.2) mg/dL Indirect Bilirubin (0.0-1.2) mg/dL AST (13-39) Units/L ALT (7-52) Units/L Alkaline Phosphatase (34-104) Units/L Troponin I (< 0.04) ng/mL B-Natriuretic Peptide (Less than 100) pg/mL Serum Total Protein (6.4-8.9) g/dL Albumin (3.5-5.7) g/dL Globulin (2.4-3.5) g/dL Albumin/Globulin Ratio (1.1-2.2) Lipase (11-82) Units/L - Radiology Data Radiology results reviewed: Yes I reviewed the patient's radiology results. - EKG Data EKG #2 EKG attestation: Yes I reviewed and interpreted this EKG. EKG shows normal: sinus rhythm Rate: normal Rhythm: NSR When compared to previous EKG there are: no significant changes Interpretation: nonspecific ST-T wave changes Critical Care Time Critical Care Time: Yes Total Critical Care Time: 35 Attestation: Critical care performed: Time is exclusive of separately billable procedures. Time includes: direct patient care, patient reassessment, coordination of patient care, interpretation of data (laboratory data, radiology data, and respiratory data), review of patient's medical records, medical consultation and documentation of patient care. Procedures included in critical care time: Procedures excluded from critical care time: Attestation Statement - Attestation Attestation: I, Yehuda Cortez DO, examined this patient [id number] and my medical decision-making was reviewed with (Dr. Jer Sylvester), Resident Physician. I agree with the documented findings, disposition and treatment plan as described except to the extent set forth below. Please see my progress notes for details. 77-year-old female presents to emergency room with complaint of blood-tinged sputum over the last 24 hours. Remotely, patient had a knee injection with stem cell therapy approximately 2-3 days ago. She has not had any complications. The family was looking on line was concerned about possibility of a medication reaction. On presentation here to the emergency room, patient is showing some mild distress. Head is atraumatic pupils are round reactive extract muscles are intact oral mucosa is patent and moist on presentation. She does have a productive cough at this time with dark-colored sputum. Her trachea is midline she has no stridor no trismus. She has right lower lobe crackles on examination. Her left lung is not involved. Heart is regular. Abdomen is soft nontender nondistended with no guarding or rigidity and no peritoneal like symptoms. Left lower extremity does not show any redness warmth or swelling. She has no pain in the hips. She denies any vaginal discharge or burning with urination. Patient clinically does not show any acute signs of anaphylactic or drug-related reaction at this time. She has more concerning for possible pneumonia causing hemoptysis. She has had baseline renal insufficiency and issues with that so CT with IV contrast or angiography will not be completed at this time. Low clinical concern based on the story and the symptoms for pulmonary emboli. Patient does not have a history DVT. She has not been immobilized. The lower extra asymmetry and they are both symmetric no swelling or deviation. Patient will most likely need admission for what we suspect is pneumonia. 1315 Patient found to have significant right lower lobe pneumonia. Patient's white blood cell count is 28.5. Antibiotic regimen started along with blood cultures and lactic acid. The emergency room. Patient will be admitted for definitive management. No critical care provider this patient during the treatment course and evaluation. 1400 Patient does not have any acute signs of severe sepsis. Lactic acid is 2.6 and blood pressure is stable. She will been admitted for pneumonia causing septic- like presentation. She does not require fluid resuscitation at this time. No acute clinical evidence of severe sepsis noted. Approximately 35 minutes of critical care will be provided this patient after evaluation was completed.
[2017-09-21 11:39] LABS: Basophils % 0.2 %
[2017-09-21 11:41] LABS: Basophils # 0.1 K/mcL (0.0-0.2); Hematocrit 38.2 % (35.3-44.9); Hemoglobin 12.2 g/dL (11.5-15.4); Immature Granulocytes % 0.9 % (0-4); Lymphocytes # 0.5 K/mcL (0.6-4.6); Lymphocytes % 1.7 %; Mean Corpuscular HGB Conc 31.9 g/dL (31.6-35.5); Mean Corpuscular Hemoglobin 28.5 pg (28.0-33.3); Mean Corpuscular Volume 89.3 fL (83.0-100.0); Mean Platelet Volume 9.9 fL (9.4-12.4); Monocytes # 1.2 K/mcL (0.0-1.3); Monocytes % 4.1 %; Platelet Count 242 K/mcL (140-400); Red Blood Count 4.28 M/mcL (3.82-4.97); Red Cell Distribution Width 14.8 % (11.5-14.5); Segmented Neutrophils % 93.1 %
[2017-09-21 11:43] LABS: Neutrophils # 26.3 K/mcL (1.6-8.9)
[2017-09-21 11:52] LABS: Calcium 9.3 mg/dL (8.6-10.3); Potassium 4.1 mEq/L (3.5-5.1)
[2017-09-21 11:53] LABS: Albumin 4.1 g/dL (3.5-5.7); Albumin/Globulin Ratio 1.6 (1.1-2.2); Bilirubin,Direct 0.2 mg/dL (0.0-0.2); Bilirubin,Indirect 0.5 mg/dL (0.0-1.2); Bilirubin,Total 0.7 mg/dL (0.3-1.0); Globulin 2.5 g/dL (2.4-3.5); Total Protein 6.6 g/dL (6.4-8.9)
[2017-09-21 11:55] LABS: Prothrombin Time 11.1 Seconds (9.4-12.1)
[2017-09-21 11:58] LABS: Activated Partial Thrombo Time 25.8 Seconds (26.0-36.0)
[2017-09-21] MEDS ORDERED: Levofloxacin 750 MG/150 ML 750 MG/150 ML BAG IVPB ONE (12:00)
[2017-09-21] MEDS ORDERED: 0.9 % Sodium Chloride 1,000 ML IVC ONE (13:05)
[2017-09-21] MEDS ORDERED: Furosemide 40 MG TABLET PO PRN (17:04)
--- NOTE | 2017-09-21 17:04 | Internal Med History&Physical ---
Date of Encounter: 09/22/17 Time of Encounter: 14:00 Assessment and Plan (1) HCAP (healthcare-associated pneumonia) Current visit: No Status: Acute SOB and cough due to *Pneumonia - Blood Cx - Urine Legionella antigen - Antibiotics - CBCD, CMP in AM - Tylenol 650 mg PO q 4-6 hr PRN pain or fever - Home meds - check the list and restart accordingly (2) Chronic kidney disease (CKD) Current visit: Yes Status: Acute 2) Dyspnea Current visit: Yes Status: Acute See plan above Qualifiers: Dyspnea type: unspecified Qualified Code(s): R06.00 - Dyspnea, unspecified History of chronic kidney disease, monitor renal function, patient's creatinine is at baseline (3) Congestive heart failure Current visit: No Status: Chronic History of congestive heart failure. Fine crackles auscultated at posterior bases bilateral lungs. Continue Lasix Qualifiers: Congestive heart failure type: unspecified congestive heart failure type Congestive heart failure chronicity: chronic Qualified Code(s): I50.9 - Heart failure, unspecified (4) AAA (abdominal aortic aneurysm) Current visit: No Status: Acute Underwent endovascular repair 2 days ago hemodynamically stable. Surgical site with iron dressings scant sanguinous drainage clean dry and intact and without signs or symptoms of infection Qualifiers: Presence of rupture: without rupture Qualified Code(s): I71.4 - Abdominal aortic aneurysm, without rupture (5) Type 2 diabetes mellitus Current visit: No Status: Chronic History of type 2 diabetes with long-term insulin use. 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 mellitus terminal press operator insulin use: with terminal press operator use Chronic kidney disease stage: stage 3 (moderate) Qualified Code(s): E11.22 - Type 2 diabetes mellitus with diabetic chronic kidney disease; N18.3 - Chronic kidney disease, stage 3 ( moderate); N18.3 - Chronic kidney disease, stage 3 (moderate); Z79.4 - long-term (current) use of insulin; Z79.4 - long-term (current) use of insulin; Z79.4 - extermination inspector (current) use of insulin; Z79.4 - extermination inspector (current) use of insulin (6) DVT prophylaxis Current visit: No Status: Acute Internal Medicine - H&P: HPI Chief complaint: SOB Admitted From: Home History of present illness: Ms. Florez is a 77 year old female Ms. Florez is a 77 year old female with PMH of CHF, COPD, CAD, sick 79, DMII, [place] with stents, and CABG. She is status post AAA repair 2 days ago who presented with nausea with no vomiting and a productive cough some blood in it. She is not having any abdominal pain or skin rash. She does have a history of significant coronary arterial disease. She denies having any current chest pain. Denies having a fever. CXR revealed evidence of pneumonia, she was admitted for further evaluation. Past Med Surg Social Fam HX - Past Medical History Medical history: aortic aneurysm, arthritis, coronary artery disease, diabetes, myocardial infarction, renal disease Psychiatric history: anxiety, depression - Past Surgical History Surgical History: appendectomy, cholecystectomy, colectomy, coronary bypass ( CABG), heart valve replacement, hysterectomy, knee replacement, other, pacemaker - Social History Smoking Status: Never smoker Smokeless Tobacco Status: No Alcohol use: none Drug use: none - Family History Father Living Status: Hx Family Cardiac Disorders: Yes (aortic aneurysm) Mother Living Status: Hx Family Cardiac Disorders: Yes Hx Family Respiratory Disorders: Yes (COPD) Hx Family Cancer: Yes (Colon.) Hx Family GI Disorders: No Hx Family Endocrine Disorder: No Hx Family Neuromuscular Disorders: No Hx Family Neurologic Disorders: No Hx Family HEENT Disorders: No Hx Family Autoimmune Disorders: No Internal Medicine - H&P: Meds Aspirin 81 mg PO DAILY 02/07/16 [History] Metoprolol XL (24 HR) Succ [Toprol Xl] 100 mg PO DAILY 08/21/16 [History] Insulin Glargine,Hum.rec.anlog [Lantus Solostar] 25 unit SQ DAILY 30 Days insuln.pen 09/14/16 [Rx] Furosemide [Lasix] 40 mg PO DAILY PRN 10/01/16 [History] Insulin LISPRO [HumaLOG] 2 - 12 units SQ TIDAC 11/11/16 [History] Clopidogrel [Plavix] 75 mg PO DAILY 07/16/17 [History] Omeprazole [PriLOSEC] 40 mg PO DAILY 09/21/17 [History] Sertraline [Zoloft] 50 mg PO DAILY 09/21/17 [History] 3 Allergy/AdvReac Type Severity Reaction Status Date / Time codeine Allergy See Verified 07/18/17 07:22 Comments acetaminophen AdvReac Nausea Verified 07/18/17 07:22 [From Darvocet-N] morphine AdvReac Nausea Verified 07/18/17 07:22 propoxyphene AdvReac Nausea Verified 07/18/17 07:22 [From Darvocet-N] All Systems PM: A 10-system review of systems was performed and is negative for pertinent findings except as documented above in the HPI. - Constitutional Constitutional: no chills, no fever(s), no night sweats - Cardiovascular Cardiovascular ROS IM: dyspnea, no chest pain, no diaphoresis, no lightheadedness, no palpitations, no syncope - Respiratory Respiratory: cough, dyspnea - Gastrointestinal Gastrointestinal: nausea, no abdominal pain, no diarrhea, no hematemesis, no hematochezia, no melena, no vomiting - Neurological Neurological ROS: no confusion, no convulsions, no focal weakness, no numbness, no tingling, no tremor(s) - Constitutional Vitals: Temp Pulse Resp BP Pulse Ox 100.0 F H 87 17 135/66 97 09/21/17 15:10 09/21/17 15:10 09/21/17 15:10 09/21/17 15:10 09/21/17 15:10 General appearance: Present: A&O X 3 - Head Head exam: Present: atraumatic, normocephalic - Cardiovascular Cardiovascular exam: Present: RRR, +S1, +S2. Absent: diastolic murmur, gallop, rubs, systolic murmur - GI/Abdominal GI/Abdominal exam: Present: normal bowel sounds, soft, no peritoneal signs. Absent: distended, tenderness - Extremities Exam Extremities exam: Present: warm, radial pulses palpable and symmetrical. Absent : calf tenderness, cyanotic, pedal edema - Neurological Exam Neurological exam: Present: CN II-XII intact, oriented X3, no focal deficits. Absent: pronater drift, facial droop, speech deficit Internal Med - H&P Results - Labs CBC & Chem 7: 09/22/17 05:01 09/22/17 05:01
[2017-09-21] MEDS ORDERED: Mag Hydrox/Al Hydrox/Simeth 30 ML UDC PO PRN (17:17)
[2017-09-21] MEDS ORDERED: *HR* HYDROcodone/Acet 5/325 mg TABLET PO PRN (17:17)
[2017-09-21] MEDS ORDERED: Ondansetron ODT 4 MG TAB.RAPDIS SL PRN (17:17)
[2017-09-21] MEDS ORDERED: Naloxone 0.4 MG/ML INJ IVP PRN (17:17)
[2017-09-21] MEDS ORDERED: Acetaminophen 325 MG TABLET PO PRN (17:17)
[2017-09-21 17:56] LABS: INR 1.1; Prothrombin Time 11.5 Seconds (9.4-12.1)
[2017-09-21 17:59] LABS: Activated Partial Thrombo Time 26.3 Seconds (26.0-36.0)
[2017-09-21] MEDS: 0.9 % Sodium Chloride 1,000 ML IVC SCH (18:11)
[2017-09-21] MEDS: Ondansetron 4 MG/2 ML VIAL IVP PRN (21:46)
[2017-09-22] MEDS: 0.9 % Sodium Chloride 1,000 ML IVC SCH (02:27)
[2017-09-22 05:27] LABS: Basophils % 0.1 %; Eosinophils % 0.1 %; Hematocrit 32.5 % (35.3-44.9); Immature Granulocytes % 0.7 % (0-4); Lymphocytes # 0.9 K/mcL (0.6-4.6); Lymphocytes % 4.4 %; Mean Corpuscular HGB Conc 31.1 g/dL (31.6-35.5); Mean Corpuscular Hemoglobin 28.1 pg (28.0-33.3); Mean Corpuscular Volume 90.3 fL (83.0-100.0); Monocytes % 4.8 %; Neutrophils # 19.1 K/mcL (1.6-8.9); Platelet Count 195 K/mcL (140-400); Segmented Neutrophils % 89.9 %
[2017-09-22 06:54] LABS: Albumin 3.2 g/dL (3.5-5.7); Albumin/Globulin Ratio 1.5 (1.1-2.2); Bilirubin,Total 0.8 mg/dL (0.3-1.0); Calcium 8.5 mg/dL (8.6-10.3); Chol/HDL Ratio 5.1 (0-4.9); Globulin 2.1 g/dL (2.4-3.5); Magnesium 1.7 mg/dL (1.6-2.6); Phosphorous 3.2 mg/dL (2.7-4.5); Potassium 4.3 mEq/L (3.5-5.1); Total Protein 5.3 g/dL (6.4-8.9)
[2017-09-22] MEDS: *HR* Enoxaparin 40 MG/0.4 ML SYRINGE SQ SCH (09:38)
[2017-09-22] MEDS ORDERED: *HR* Dextrose 50 % in Water (Syg) 50 ML SYRINGE IVP PRN (09:45)
[2017-09-22] MEDS ORDERED: Dextrose Gel 15 GM PO PRN ×2 (09:45)
[2017-09-22] MEDS ORDERED: D5% in Water 1,000 ML IVC PRN (09:45)
[2017-09-22 09:46] LABS: Hemoglobin 10.1 g/dL (11.5-15.4)
[2017-09-22] MEDS: Insulin DETEMIR 100 UNIT/ML X5UNITS SQ SCH (10:39)
[2017-09-22] MEDS: Aspirin 81 MG TAB.CHEW PO SCH (10:40)
[2017-09-22 10:45] LABS: Hemoglobin A1C 6.5 %
[2017-09-22] MEDS: Metoprolol XL (24 HR) Succ 50 MG TAB.ER.24H PO SCH (10:45)
--- NOTE | 2017-09-22 11:32 | Internal Med Progress Note ---
Date of Encounter: 09/22/17 Time of Encounter: 07:55 - Assessment and plan (1) HCAP (healthcare-associated pneumonia) Current Visit: Yes Status: Acute Assessment and plan: Patient presents to the emergency department with subjective fevers, nausea and vomiting, mild hemoptysis, thick white sputum, streaked with blood. Patient had aortic aneurysm repair 5 weeks ago, one day after discharge returned and was admitted for 5 days with pneumonia. She has been home for the last 5 weeks. Patient requiring supplemental O2, she is in no distress. Right posterior lung field diminished with coarse rhonchi. There is no wheezing. Left posterior jarquin are clear and diminished. Patient with leukocytosis that is improving. She is afebrile. Chest CT showed right upper lobe pneumonia, small chronic right pleural effusion. Patient was treated with Levaquin 750 mg IV in the emergency department, she is being treated with 750 mg by mouth every 48 hours due to renal function. Continue O2 as needed, titrate to maintain sats greater than 92%. Blood cultures are ordered and pending. Urine antigens are ordered and pending. Chest CT 09/21/17 11:22 IMPRESSION: 1. Right upper lobe airspace consolidation compatible with pneumonia 2. Small chronic right pleural effusion with associated pleural thickening and chronic by a lateral lower lobe atelectasis 3. No acute abdominopelvic process demonstrated 4. 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 Patient denies chest pain. Continue home medications. Patient is on telemetry. Qualifiers: Coronary Disease-Associated Artery/Lesion type: [place] artery [place] vs. transplanted heart: [place] heart Associated angina: without angina Qualified Code(s): I25.10 - Atherosclerotic heart disease of [place] coronary artery without angina pectoris (3) BAILEY on CPAP Current Visit: Yes Status: Chronic Assessment and plan: Chronic. Patient has cpap from home. (4) Type 2 diabetes mellitus Current Visit: Yes Status: Chronic Assessment and plan: Chronic. Continue sliding scale insulin, diabetic diet, Accu-Cheks before meals at bedtime. A1c is 6.5%. Qualifiers: Diabetes mellitus complication status: with kidney complications Diabetes mellitus complication detail: with chronic kidney disease Diabetes mellitus terminal worker insulin use: with mcc use Chronic kidney disease stage: stage 3 (moderate) Qualified Code(s): E11.22 - Type 2 diabetes mellitus with diabetic chronic kidney disease; N18.3 - Chronic kidney disease, stage 3 ( moderate); N18.3 - Chronic kidney disease, stage 3 (moderate); Z79.4 - termite exterminator helper (current) use of insulin; Z79.4 - jail (current) use of insulin; Z79.4 - jail (current) use of insulin; Z79.4 - jail (current) use of insulin (5) COPD (chronic obstructive pulmonary disease) Current Visit: Yes Status: Chronic Assessment and plan: Chronic. Plan as above for pneumonia. Qualifiers: COPD type: unspecified COPD Qualified Code(s): J44.9 - Chronic obstructive pulmonary disease, unspecified (6) Anemia Current Visit: Yes Status: Chronic Assessment and plan: Chronic. Appears to be somewhat near patient's baseline. Continue to monitor. Qualifiers: Anemia type: unspecified type Qualified Code(s): D64.9 - Anemia, unspecified (7) Nausea and vomiting Current Visit: Yes Status: Acute Assessment and plan: Patient reported to the emergency department with nausea and vomiting, viral gastroenteritis versus pneumonia symptom. Patient denies abdominal pain, abdomen was soft and nontender. Anti-emetics as needed. Qualifiers: Vomiting type: unspecified Vomiting Intractability: non-intractable Qualified Code(s): R11.2 - Nausea with vomiting, unspecified (8) Chronic kidney disease (CKD) Current Visit: Yes Status: Chronic Assessment and plan: Serum creatinine is 1.55, GFR 32. This appears to be near patient's baseline. Avoid nephrotoxins Levaquin every 48 hours. Qualifiers: Chronic kidney disease stage: stage 3 (moderate) Qualified Code(s): N18.3 - Chronic kidney disease, stage 3 (moderate) (9) DVT prophylaxis Current Visit: Yes Status: Acute Assessment and plan: Lovenox subcutaneous. - Time Spent With Patient less than 15 minutes - Subjective Interval history: Patient was seen and assessed at 7:55 AM. at bedside. Patient reports that 2 nights ago she was having fever, nausea and vomiting, hemoptysis. Patient reports that now she has thick white sputum, intermittently streaked with bright red blood. Patient reports subjective fever at home of 100.7. Patient was hospitalized 5 weeks ago with aneurysm, was home for one day and then was hospitalized for 5 days with pneumonia. She has most recently been home for the last 4-5 weeks. Patient denies headache, nausea, vomiting, abdominal pain. - Constitutional Vitals: Temp Pulse Resp BP Pulse Ox 97.7 F 73 18 132/77 95 09/22/17 11:04 09/22/17 11:04 09/22/17 11:04 09/22/17 11:04 09/22/17 11:04 General appearance: Present: cooperative, A&O X 3, pleasant, no acute distress, answers questions appropriately - Head Head exam: Present: atraumatic, normal inspection, normocephalic - Eye Eye exam: Present: normal appearance, conjuntiva pink, sclera anicteric - Neck Neck exam general surgery: Present: supple, trachea midline. Absent: lymphadenopathy - Respiratory Respiratory exam: Present: CTAB. Absent: accessory muscle use, rales, rhonchi, wheezes - Cardiovascular Cardiovascular exam: Present: RRR, +S1, +S2. Absent: diastolic murmur, gallop, rubs, systolic murmur - GI/Abdominal GI/Abdominal exam: Present: normal bowel sounds, soft, no peritoneal signs. Absent: distended, tenderness - Extremities Exam Extremities exam: Present: warm, radial pulses palpable and symmetrical. Absent : calf tenderness, cyanotic, pedal edema - Neurological Exam Neurological exam: Present: CN II-XII intact, oriented X3, no focal deficits. Absent: pronater drift, facial droop, speech deficit - Skin Skin exam: Present: dry, intact Internal Medicine: Result - Labs CBC & Chem 7: 09/22/17 05:01 09/22/17 05:01 Labs: Short CBC 09/22/17 Range/Units 05:01 WBC 21.3 H (4.3-11.1) K/mcL Hgb 10.1 L D (11.5-15.4) g/dL Hct 32.5 L (35.3-44.9) % Plt Count 195 (140-400) K/mcL Neutrophils # 19.1 H (1.6-8.9) K/mcL BMP 09/22/17 05:01 Sodium 137 Potassium 4.3 Chloride 111 H Carbon Dioxide 22 L BUN 24 H Creatinine 1.55 H Glucose 122 H Calcium 8.5 L Cardiac Enzymes 09/21/17 09/21/17 09/22/17 Range/Units 17:40 23:14 05:01 Troponin I < 0.03 < 0.03 0.03 (< 0.04) ng/mL Liver Function 09/22/17 Range/Units 05:01 Total Bilirubin 0.8 (0.3-1.0) mg/dL AST 8 L (13-39) Units/L ALT 8 (7-52) Units/L Alkaline Phosphatase 57 (34-104) Units/L Albumin 3.2 L (3.5-5.7) g/dL - ABG Interpretation ABG results: PT/INR, D-dimer PT 11.5 Seconds (9.4-12.1) 09/21/17 17:40 Consult Discharge Plan - Plan Referrals: Edgar Nguyen Jr, MD [Primary Care Provider] -
[2017-09-22] MEDS: Insulin LISPRO 300 UNITS/3 ML VIAL SQ SCH ×3 (12:21→22:20)
[2017-09-22 13:56] LABS: Bilirubin,Urine Negative (Negative); Blood,Urine Negative (Negative); Clarity,Urine Cloudy (Clear); Color,Urine Yellow (Yellow); Glucose,Urine (UA) Normal (Normal); Ketones,Urine Negative (Negative); Leukocyte Esterase,Urine Small (Negative); Nitrite,Urine Negative (Negative); PH,Urine 5.5 pH Units (5.0-8.0); Protein,Urine 30 mg/dL (Neg-Trace); Urobilinogen,Urine Normal (Normal)
[2017-09-22 13:57] LABS: Bacteria,Urine None Seen per hpf (None-Few); Hyaline Casts,Urine None Seen per lpf (None-Few); RBC,Urine 0-3 per hpf (0-3); Squamous Epithelial Cell,Urine Many per lpf (None-Few); WBC,Urine 30-50 per hpf (0-3)
[2017-09-23] MEDS: Ondansetron 4 MG/2 ML VIAL IVP PRN (03:15)
[2017-09-23] MEDS: *HR* Enoxaparin 40 MG/0.4 ML SYRINGE SQ SCH (06:04)
[2017-09-23] MEDS: Insulin LISPRO 300 UNITS/3 ML VIAL SQ SCH ×4 (07:09→20:32)
[2017-09-23] MEDS ORDERED: 0.9 % Sodium Chloride 1,000 ML IVC SCH (07:30)
[2017-09-23] MEDS: Metoprolol XL (24 HR) Succ 50 MG TAB.ER.24H PO SCH (08:35)
[2017-09-23] MEDS: Aspirin 81 MG TAB.CHEW PO SCH (08:35)
[2017-09-23] MEDS: Insulin DETEMIR 100 UNIT/ML X5UNITS SQ SCH (08:38)
[2017-09-23] MEDS: levoFLOXacin 750 MG TABLET PO SCH (11:59)
--- NOTE | 2017-09-23 12:35 | Internal Med Progress Note ---
Date of Encounter: 09/23/17 Time of Encounter: 09:50 - Assessment and plan (1) HCAP (healthcare-associated pneumonia) Current Visit: Yes Status: Acute Assessment and plan: Patient requiring supplemental O2, she is in no distress. Right posterior lung field diminished with coarse rhonchi. There is no wheezing. Left posterior jarquin with rales today. Repeat chest x-ray and BNP ordered. Patient with leukocytosis that is improving. She is afebrile. Chest CT showed right upper lobe pneumonia, small chronic right pleural effusion. Patient was treated with Levaquin 750 mg IV in the emergency department, she is being treated with 750 mg by mouth every 48 hours due to renal function. Continue O2 as needed, titrate to maintain sats greater than 92%. Blood cultures are negative 2. Sputum culture is negative. Urine antigens are ordered and pending. Chest CT 09/21/17 11:22 IMPRESSION: 1. Right upper lobe airspace consolidation compatible with pneumonia 2. Small chronic right pleural effusion with associated pleural thickening and chronic by a lateral lower lobe atelectasis 3. No acute abdominopelvic process demonstrated 4. 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 Continue home medications. Continue aspirin, Plavix, beta pankaj. Patient is on telemetry. Qualifiers: Coronary Disease-Associated Artery/Lesion type: [place] artery [place] vs. transplanted heart: [place] heart Associated angina: without angina Qualified Code(s): I25.10 - Atherosclerotic heart disease of [place] coronary artery without angina pectoris (3) BAILEY on CPAP Current Visit: Yes Status: Chronic Assessment and plan: Chronic. Patient has cpap from home. Continue during admission. (4) Type 2 diabetes mellitus Current Visit: Yes Status: Chronic Assessment and plan: Chronic. Continue sliding scale insulin, diabetic diet, Accu-Cheks before meals at bedtime. A1c is 6.5%. Qualifiers: Diabetes mellitus complication status: with kidney complications Diabetes mellitus complication detail: with chronic kidney disease Diabetes mellitus snf insulin use: with records management engineer use Chronic kidney disease stage: stage 3 (moderate) Qualified Code(s): E11.22 - Type 2 diabetes mellitus with diabetic chronic kidney disease; N18.3 - Chronic kidney disease, stage 3 ( moderate); N18.3 - Chronic kidney disease, stage 3 (moderate); Z79.4 - jail (current) use of insulin; Z79.4 - senior network administrator (current) use of insulin; Z79.4 - jail (current) use of insulin; Z79.4 - senior network administrator (current) use of insulin (5) COPD (chronic obstructive pulmonary disease) Current Visit: Yes Status: Chronic Assessment and plan: Chronic. Plan as above for pneumonia. Qualifiers: COPD type: unspecified COPD Qualified Code(s): J44.9 - Chronic obstructive pulmonary disease, unspecified (6) Anemia Current Visit: Yes Status: Chronic Assessment and plan: Chronic. Appears to be somewhat near patient's baseline. Continue to monitor. Qualifiers: Anemia type: unspecified type Qualified Code(s): D64.9 - Anemia, unspecified (7) Nausea and vomiting Current Visit: Yes Status: Acute Assessment and plan: Patient denies abdominal pain, abdomen was soft and nontender. Anti-emetics as needed. Qualifiers: Vomiting type: unspecified Vomiting Intractability: non-intractable Qualified Code(s): R11.2 - Nausea with vomiting, unspecified (8) Chronic kidney disease (CKD) Current Visit: Yes Status: Chronic Assessment and plan: This appears to be near patient's baseline. Avoid nephrotoxins Levaquin every 48 hours. Qualifiers: Chronic kidney disease stage: stage 3 (moderate) Qualified Code(s): N18.3 - Chronic kidney disease, stage 3 (moderate) (9) DVT prophylaxis Current Visit: Yes Status: Acute Assessment and plan: Subcutaneous Lovenox. - Subjective Interval history: Patient was seen and assessed at 0850 AM. at bedside. Patient reports overnight she had nausea that was alleviated with antiemetics. She reports that her chest pain is improving. She denies any increased difficulty breathing or new cough, however posterior lung jarquin have rails in both jarquin that were not there previously. They do not clear with cough. Patient does not normally wear oxygen at home, currently she is on 4 L. She has requested a Lasix stating that she feels as if she is bloated. She takes them at home when necessary. - Constitutional Vitals: Temp Pulse Resp BP Pulse Ox 97.3 F L 65 17 158/85 94 09/23/17 10:36 09/23/17 10:36 09/23/17 10:36 09/23/17 10:36 09/23/17 10:36 General appearance: Present: cooperative, A&O X 3, pleasant, no acute distress, answers questions appropriately - Head Head exam: Present: atraumatic, normal inspection, normocephalic - Eye Eye exam: Present: PERRL, conjuntiva pink, sclera anicteric Pupils: Present: PERRL - Neck Neck exam general surgery: Present: supple, trachea midline. Absent: lymphadenopathy - Respiratory Respiratory exam: Present: CTAB. Absent: accessory muscle use, rales, rhonchi, wheezes - Cardiovascular Cardiovascular exam: Present: RRR, +S1, +S2. Absent: diastolic murmur, gallop, rubs, systolic murmur - GI/Abdominal GI/Abdominal exam: Present: normal bowel sounds, soft. Absent: distended, tenderness - Extremities Exam Extremities exam: Present: warm, radial pulses palpable and symmetrical. Absent : calf tenderness, cyanotic, pedal edema - Neurological Exam Neurological exam: Present: alert, oriented X3, no focal deficits. Absent: altered, facial droop, speech deficit - Skin Skin exam: Present: dry, intact, normal color, warm. Absent: rash Internal Medicine: Result - Labs CBC & Chem 7: 09/22/17 05:01 09/22/17 05:01 Labs: Urine 09/22/17 Range/Units 13:32 Urine Color Yellow (Yellow) Urine Clarity Cloudy A (Clear) Urine pH 5.5 (5.0-8.0) pH Units Ur Specific [place] 1.030 H (1.010-1.025) Urine Protein 30 H (Neg-Trace) mg/dL Urine Glucose (UA) Normal (Normal) mg/dL - ABG Interpretation ABG results: PT/INR, D-dimer PT 11.5 Seconds (9.4-12.1) 09/21/17 17:40 Consult Discharge Plan - Plan Referrals: Edgar Nguyen Jr, MD [Primary Care Provider] -
[2017-09-23 13:13] LABS: Basophils % 0.3 %; Eosinophils # 0.4 K/mcL (0.0-0.6); Eosinophils % 3.3 %; Hematocrit 34.2 % (35.3-44.9); Hemoglobin 10.5 g/dL (11.5-15.4); Immature Granulocytes % 0.4 % (0-4); Lymphocytes # 0.9 K/mcL (0.6-4.6); Mean Corpuscular HGB Conc 30.7 g/dL (31.6-35.5); Mean Corpuscular Hemoglobin 27.9 pg (28.0-33.3); Mean Platelet Volume 10.1 fL (9.4-12.4); Monocytes # 0.5 K/mcL (0.0-1.3); Monocytes % 4.5 %; Neutrophils # 9.7 K/mcL (1.6-8.9); Platelet Count 201 K/mcL (140-400); Red Blood Count 3.76 M/mcL (3.82-4.97); Segmented Neutrophils % 83.5 %
[2017-09-23 13:34] LABS: Calcium 9.1 mg/dL (8.6-10.3); Potassium 4.1 mEq/L (3.5-5.1)
[2017-09-24] MEDS: *HR* Enoxaparin 40 MG/0.4 ML SYRINGE SQ SCH (04:37)
[2017-09-24 04:59] LABS: Basophils % 0.5 %; Eosinophils # 0.4 K/mcL (0.0-0.6); Eosinophils % 4.8 %; Hematocrit 32.3 % (35.3-44.9); Hemoglobin 10.1 g/dL (11.5-15.4); Immature Granulocytes % 0.5 % (0-4); Lymphocytes # 0.8 K/mcL (0.6-4.6); Lymphocytes % 8.6 %; Mean Corpuscular HGB Conc 31.3 g/dL (31.6-35.5); Mean Corpuscular Volume 89.5 fL (83.0-100.0); Monocytes # 0.5 K/mcL (0.0-1.3); Monocytes % 5.8 %; Platelet Count 199 K/mcL (140-400); Red Blood Count 3.61 M/mcL (3.82-4.97); Red Cell Distribution Width 14.6 % (11.5-14.5); Segmented Neutrophils % 79.8 %
[2017-09-24 05:19] LABS: Calcium 9.1 mg/dL (8.6-10.3); Potassium 3.8 mEq/L (3.5-5.1)
[2017-09-24] MEDS: Insulin LISPRO 300 UNITS/3 ML VIAL SQ SCH ×4 (07:51→21:14)
[2017-09-24] MEDS: Metoprolol XL (24 HR) Succ 50 MG TAB.ER.24H PO SCH (07:55)
[2017-09-24] MEDS: Aspirin 81 MG TAB.CHEW PO SCH (07:55)
[2017-09-24] MEDS: Furosemide 40 MG TABLET PO SCH (07:55)
[2017-09-24] MEDS: Insulin DETEMIR 100 UNIT/ML X5UNITS SQ SCH (08:50)
--- NOTE | 2017-09-24 08:57 | Pulmonology Consult Note ---
Date of Encounter: 09/24/17 Time of Encounter: 08:57 Assessment and Plan (1) Community acquired pneumonia Current Visit: Yes Status: Acute Patient presenting with community-acquired pneumonia which is responding antimicrobial therapy. Encouragingly hemoptysis has resolved which is likely related to acute infectious process. Radiographically I do not seen any clear pattern that would predispose her to recurrent pneumonia but this can be evaluated as an outpatient basis. She is up-to-date to date on her pneumonia vaccine she is not received an annual influenza vaccine as of yet but could receive this after discharge. I recommend continuing to treat with a respiratory fluoroquinolone such as Levaquin that she is on to complete a 10 day course She will need continued bronchial hygiene including out of bed to chair ambulation and incentive spirometry Outpatient follow-up and pulmonary to repeat CT scan in 4-6 weeks of the time of discharge Qualifiers: Laterality: right Lung location: upper lobe of lung Qualified Code(s): J18.1 - Lobar pneumonia, unspecified organism (2) COPD (chronic obstructive pulmonary disease) Current Visit: Yes Status: Chronic This is per history do not see that she has had poor function testing done in our system this can be evaluated as an outpatient she is a lifelong nonsmoker and no other clear exposures that would predispose her to this Qualifiers: COPD type: unspecified COPD Qualified Code(s): J44.9 - Chronic obstructive pulmonary disease, unspecified (3) BAILEY on CPAP Current Visit: Yes Status: Chronic Continue nocturnal CPAP with oxygen bleed. (4) Acute respiratory failure with hypoxia Current Visit: Yes Status: Acute This is improving she can be weaned down on oxygen to keep saturation greater than 88% at all times she may need discharged on continuous oxygen although she does not needed continuously while at home this is likely related to acute infectious process from pneumonia complicated by underlying obesity BAILEY and heart failure with preserved ejection fraction In addition out of bed to chair incentive spirometry and ambulation with supervision are generally helpful in resolving atelectasis causing V/Q mismatching and hypoxemia History of Present Illness Consult date: 09/24/17 Requesting physician: Rubia Layne Reason for consult: pneumonia Chief complaint: Shortness of Breath History of present illness: This is a pleasant 77-year-old woman with a past medical history of HFpEF peripheral vascular disease including AAA repair in June of this year recurrent pneumonia CKD, CAD s/p PCI who presents with Nausea vomiting fever chills generalize malaise and cough productive of dark sputum which may have been blood tinged. Was found to have right lobar pneumonia in the ED on CT scan she is in treated with antimicrobials over the last 3 days with overall improvement clinically and white count has normalized she says she is feeling better but she is concerned about recurrent episodes of pneumonia prompting pulmonary consultation. She says that she was hospitalized earlier this year at [facility] and underwent bronchoscopy where she had not "to be washed out" was treated for pneumonia she did undergo a swallow evaluation at that time which was normal, and then she was also treated for pneumonia a few days after discharge for AAA repair. 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 No exotic pets or recent travels or significant sick contacts Past Med Surg Social Fam HX - Past Medical History Medical history: aortic aneurysm, arthritis, coronary artery disease, diabetes, myocardial infarction, renal disease Psychiatric history: anxiety, depression - Past Surgical History Surgical History: appendectomy, cholecystectomy, colectomy, coronary bypass ( CABG), heart valve replacement, hysterectomy, knee replacement, other, pacemaker - Social History Smoking Status: Never smoker Smokeless Tobacco Status: No Alcohol use: none Drug use: none - Family History Father Living Status: Hx Family Cardiac Disorders: Yes (aortic aneurysm) Mother Living Status: Hx Family Cardiac Disorders: Yes Hx Family Respiratory Disorders: Yes (COPD) Hx Family Cancer: Yes (Colon.) Hx Family GI Disorders: No Hx Family Endocrine Disorder: No Hx Family Neuromuscular Disorders: No Hx Family Neurologic Disorders: No Hx Family HEENT Disorders: No Hx Family Autoimmune Disorders: No Medications and Allergies Aspirin 81 mg PO DAILY 02/07/16 [History] Metoprolol XL (24 HR) Succ [Toprol Xl] 100 mg PO DAILY 08/21/16 [History] Insulin Glargine,Hum.rec.anlog [Lantus Solostar] 25 unit SQ DAILY 30 Days insuln.pen 09/14/16 [Rx] Furosemide [Lasix] 40 mg PO DAILY PRN 10/01/16 [History] Insulin LISPRO [HumaLOG] 2 - 12 units SQ TIDAC 11/11/16 [History] Clopidogrel [Plavix] 75 mg PO DAILY 07/16/17 [History] Omeprazole [PriLOSEC] 40 mg PO DAILY 09/21/17 [History] Sertraline [Zoloft] 50 mg PO DAILY 09/21/17 [History] 3 Allergy/AdvReac Type Severity Reaction Status Date / Time codeine Allergy See Verified 07/18/17 07:22 Comments acetaminophen AdvReac Nausea Verified 07/18/17 07:22 [From Darvocet-N] morphine AdvReac Nausea Verified 07/18/17 07:22 propoxyphene AdvReac Nausea Verified 07/18/17 07:22 [From Darvocet-N] All Systems: A 10-system review of systems was performed and is negative for pertinent findings except as documented above in the HPI. Physical Examination Vital Signs: Vital Signs, Last 4 Hours Temp Pulse Resp BP Pulse Ox 09/24/17 06:37 98.2 F 62 16 124/73 97 General appearance: no acute distress Eyes: nonicteric ENT: oropharynx moist Mallampati (class): 4 Neck: supple Effort: normal Inspection: normal Auscultation: left: clear, right: rhonchi Cardiovascular: regular rate and rhythm Gastrointestinal: normoactive bowel sounds Integumentary: normal Extremities: no cyanosis, no clubbing Musculoskeletal: no deformities normal mental status, non-focal exam mood appropriate Results - Laboratory Findings CBC and BMP: 09/24/17 04:10 09/24/17 04:10 PT/INR, D-dimer PT 11.5 Seconds (9.4-12.1) 09/21/17 17:40 Abnormal lab findings: Abnormal lab results RBC 3.61 M/mcL (3.82-4.97) L 09/24/17 04:10 Hgb 10.1 g/dL (11.5-15.4) L 09/24/17 04:10 Hct 32.3 % (35.3-44.9) L 09/24/17 04:10 MCHC 31.3 g/dL (31.6-35.5) L 09/24/17 04:10 RDW 14.6 % (11.5-14.5) H 09/24/17 04:10 BUN 24 mg/dL (8-23) H 09/24/17 04:10 Creatinine 1.55 mg/dL (0.60-1.20) H 09/24/17 04:10 Est GFR ( Amer) 39 (> 60) L 09/24/17 04:10 Est GFR (Non-Af Amer) 32 (> 60) L 09/24/17 04:10 POC Glucose 93 (58-89) H 09/23/17 20:07 Hemoglobin A1c 6.5 % (-5.6) H 09/22/17 10:15 Lactic Acid 2.6 mmol/L (0.5-2.2) H 09/21/17 12:19 AST 8 Units/L (13-39) L 09/22/17 05:01 B-Natriuretic Peptide 319 pg/mL (Less than 100) H 09/23/17 13:05 Serum Total Protein 5.3 g/dL (6.4-8.9) L 09/22/17 05:01 Albumin 3.2 g/dL (3.5-5.7) L 09/22/17 05:01 Globulin 2.1 g/dL (2.4-3.5) L 09/22/17 05:01 LDL Cholesterol, Calc 126 mg/dL (0-99) H 09/22/17 05:01 HDL Cholesterol 36 mg/dL (40-59) L 09/22/17 05:01 Cholesterol/HDL Ratio 5.1 (0-4.9) H 09/22/17 05:01 Urine Clarity Cloudy (Clear) A 09/22/17 13:32 Ur Specific [place] 1.030 (1.010-1.025) H 09/22/17 13:32 Urine Protein 30 mg/dL (Neg-Trace) H 09/22/17 13:32 Ur Leukocyte Esterase Small (Negative) H 09/22/17 13:32 Urine Microscopic WBC 30-50 per hpf (0-3) H 09/22/17 13:32 Ur Squamous Epith Cells Many per lpf (None-Few) H 09/22/17 13:32 - Microbiology Findings Microbiology Findings: Microbiology, Last 48 Hours 09/22/17 10:54 Sputum Culture - Preliminary Sputum - Diagnostic Findings Chest x-ray: report reviewed, image reviewed CT scan - chest: report reviewed, image reviewed - Clinical Findings Intake & Output: Intake & Output 09/23/17 09/24/17 09/24/17 23:59 07:59 15:59 Intake Total 360 / 360 0 / 0 Output Total 400 / 400 500 / 500 Balance -40 / -40 -500 / -500 Weight 105.868 kg Consult Discharge Plan - Plan Referrals: Edgar Nguyen Jr, MD [Primary Care Provider] - 10/01/17 10:00 am
--- NOTE | 2017-09-24 09:40 | Internal Med Progress Note ---
Date of Encounter: 09/24/17 Time of Encounter: 09:36 - Assessment and plan (1) HCAP (healthcare-associated pneumonia) Current Visit: Yes Status: Acute Assessment and plan: hospitalized 06/2017 and was treated for pneumonia at that time. Now with SOB and cough. Chest CT concerning for RUL pneumonia. WBC 28K on admission; now normalized. Tmax 100.0. No tachycardia or hypotension. Continue Levaquin started in ED. Urinary antigens, respiratory PCR, sputum culture pending. Pulmonology consulted (2) Nausea and vomiting Current Visit: Yes Status: Acute Assessment and plan: That started 1 day prior to admission. No abdominal pain, constipation or diarrhea. ABD CT with no acute abdomen or pelvic process. Etiology unknown, possibly component of gastroenteritis. Symptoms now resolved and tolerating PO intake without nausea or vomiting. No further workup at this time. Qualifiers: Vomiting type: unspecified Vomiting Intractability: non-intractable Qualified Code(s): R11.2 - Nausea with vomiting, unspecified (3) Acute on chronic renal failure Current Visit: No Status: Acute Assessment and plan: stage III CKD. Now with prerenal THERESE on CKD secondary to poor PO intake and N/V prior to admission. Renal function normalized with IV fluids. Avoid nephrotoxic agents as possible. Intermittently monitor renal function. Qualifiers: Chronic kidney disease stage: stage 3 (moderate) Qualified Code(s): N17.9 - Acute kidney failure, unspecified; N18.3 - Chronic kidney disease, stage 3 ( moderate); N18.3 - Chronic kidney disease, stage 3 (moderate) (4) History of mitral valve replacement with bioprosthetic valve Current Visit: No Status: Chronic Assessment and plan: per hx. 07/21/17 Limited TTE with evidence of bioprosthetic mitral valve, valvular function was not assessed. Repeat echo pending. (5) HTN (hypertension) Current Visit: No Status: Chronic Assessment and plan: per hx. BP controlled. Continue home BP medications. Qualifiers: Hypertension type: essential hypertension Qualified Code(s): I10 - Essential (primary) hypertension (6) BAILEY on CPAP Current Visit: Yes Status: Chronic Assessment and plan: per hx. continue CPAP while inpatient. (7) Type 2 diabetes mellitus Current Visit: Yes Status: Chronic Assessment and plan: per hx. Hgb A1c 6.5%. SSI. Monitor blood sugars and titrate PRN Qualifiers: Diabetes mellitus complication status: with kidney complications Diabetes mellitus complication detail: with chronic kidney disease Diabetes mellitus long-term insulin use: with long-term use Chronic kidney disease stage: stage 3 (moderate) Qualified Code(s): E11.22 - Type 2 diabetes mellitus with diabetic chronic kidney disease; N18.3 - Chronic kidney disease, stage 3 ( moderate); N18.3 - Chronic kidney disease, stage 3 (moderate); Z79.4 - sales and marketing coordinator (current) use of insulin; Z79.4 - sales and marketing coordinator (current) use of insulin; Z79.4 - skilled nursing (current) use of insulin; Z79.4 - sales and marketing coordinator (current) use of insulin (8) Chronic diastolic (congestive) heart failure Current Visit: Yes Status: Acute Assessment and plan: 05/2017 TTE with EF 60%, mild diastolic dysfunction. Appears euvolemic. Continue home Lasix. (9) AAA (abdominal aortic aneurysm) Current Visit: No Status: Acute Assessment and plan: per hx. S/p endograft repair on 07/16/[address] Wade. Follow-up as previously planned. Qualifiers: Presence of rupture: without rupture Qualified Code(s): I71.4 - Abdominal aortic aneurysm, without rupture (10) DVT prophylaxis Current Visit: No Status: Acute - Time Spent With Patient less than 15 minutes - Subjective Interval history: Seen and examined at bedside; patient is known to me from previous admission. Says she had an uneventful night and was feeling overall better. Still with intermittent nausea but now tolerating regular diet. Having some shortness of breath gets worse with exertion and relieved with rest. Has been at bedside and requesting pulmonology consult. No chest pain, no abdominal pain, no constipation or loose stool. No sick contacts that she is aware of. - Constitutional Vitals: Temp Pulse Resp BP Pulse Ox 98.2 F 62 16 124/73 97 09/24/17 06:37 09/24/17 06:37 09/24/17 06:37 09/24/17 06:37 09/24/17 06:37 General appearance: Present: cooperative, A&O X 3, pleasant, no acute distress, answers questions appropriately - Head Head exam: Present: atraumatic, normocephalic - Eye Eye exam: Present: PERRL, conjuntiva pink, sclera anicteric Pupils: Present: PERRL - Neck Neck exam general surgery: Present: supple, trachea midline. Absent: lymphadenopathy - Respiratory Respiratory exam: Present: rales, rhonchi. Absent: accessory muscle use, wheezes - Cardiovascular Cardiovascular exam: Present: RRR, +S1, +S2. Absent: diastolic murmur, gallop, rubs, systolic murmur - GI/Abdominal GI/Abdominal exam: Present: normal bowel sounds, soft, no peritoneal signs. Absent: distended, tenderness - Extremities Exam Extremities exam: Present: warm, radial pulses palpable and symmetrical. Absent : calf tenderness, cyanotic, pedal edema - Neurological Exam Neurological exam: Present: CN II-XII intact, oriented X3, no focal deficits. Absent: pronater drift, facial droop, speech deficit - Skin Skin exam: Present: dry, intact Internal Medicine: Result - Labs CBC & Chem 7: 09/24/17 04:10 09/24/17 04:10 Labs: Short CBC 09/23/17 09/24/17 Range/Units 13:05 04:10 WBC 11.6 H 8.7 (4.3-11.1) K/mcL Hgb 10.5 L 10.1 L (11.5-15.4) g/dL Hct 34.2 L 32.3 L (35.3-44.9) % Plt Count 201 199 (140-400) K/mcL Neutrophils # 9.7 H 7.0 (1.6-8.9) K/mcL BMP 09/23/17 09/24/17 13:05 04:10 Sodium 138 139 Potassium 4.1 3.8 Chloride 109 H 106 Carbon Dioxide 23 28 BUN 26 H 24 H Creatinine 1.60 H 1.55 H Glucose 135 H 94 Calcium 9.1 9.1 - ABG Interpretation ABG results: PT/INR, D-dimer PT 11.5 Seconds (9.4-12.1) 09/21/17 17:40 - Impressions Impressions Chest X-Ray 09/23/17 12:30 IMPRESSION: Interval development of right upper lobe airspace disease worrisome for pneumonia. D/ / 09/23/2017 14:20:59 Jose Watt MD / mónica Interpreting Provider: Jose Watt MD Consult Discharge Plan - Plan Referrals: Edgar Nguyen Jr, MD [Primary Care Provider] - 10/01/17 10:00 am
[2017-09-24] MEDS: *HR* Heparin 5,000 UNIT/ML VIAL SQ SCH ×2 (12:13→21:19)
--- NOTE | 2017-09-24 15:53 | Electrocardiograph Report ---
[address] [address] Test Date: 2017-09-21 Pat Name: Delores Florez Department: 103 Room: 3B12 Gender: F [employer]cre[employer]: JOSE RAMON : 1940 Requested By: Veronica Resendez Order Number: [id number] Reading MD: David Dobbins MD Measurements Intervals [place] Rate: 88 P: -89 DC: 143 QRS: 15 QRSD: 92 T: 46 QT: 343 QTc: 389 Interpretive Statements SINUS RHYTHM BASELINE ARTIFACT Electronically Signed On 09-24-2017 15:52:05 EST by David Dobbins MD
--- NOTE | 2017-09-24 15:54 | Electrocardiograph Report ---
[address] [address] Test Date: 2017-09-21 Pat Name: Delores Florez Department: 103 Room: 3B12 Gender: F Seam Checker: JOSE RAMON : 1940 Requested By: Jer Sylvester Order Number: [id number] Reading MD: David Dobbins MD Measurements Intervals [place] Rate: 90 P: -79 OK: 110 QRS: 15 QRSD: 93 T: 50 QT: 376 QTc: 424 Interpretive Statements SINUS RHYTHM Electronically Signed On 09-24-2017 15:52:45 EST by David Dobbins MD
[2017-09-24 23:31] LABS: Adenovirus Not Detected (Not Detect); Bordetella Pertussis Not Detected (Not Detect); Chlamydophila pneumoniae Not Detected (Not Detect); Coronavirus 229E Not Detected (Not Detect); Coronavirus HKU1 Not Detected (Not Detect); Coronavirus NL63 Not Detected (Not Detect); Coronavirus OC43 Not Detected (Not Detect); Human Metapneumovirus Not Detected (Not Detect); Human Rhinovirus/Enterovirus Not Detected (Not Detect); Influenza A Subtype 2009 H1 Not Detected (Not Detect); Influenza A Untypeable Not Detected (Not Detect); Influenza B Not Detected (Not Detect); Mycoplasma pneumoniae Not Detected (Not Detect); Parainfluenza Virus 1 Not Detected (Not Detect); Parainfluenza Virus 2 Not Detected (Not Detect); Parainfluenza Virus 3 Not Detected (Not Detect); Parainfluenza Virus 4 Not Detected (Not Detect); Respiratory Syncytial Virus Not Detected (Not Detect)
[2017-09-25] MEDS: *HR* Heparin 5,000 UNIT/ML VIAL SQ SCH (06:04)
[2017-09-25 07:54] VITALS: BP 139/78
[2017-09-25] MEDS: Insulin LISPRO 300 UNITS/3 ML VIAL SQ SCH (08:05)
[2017-09-25] MEDS: Metoprolol XL (24 HR) Succ 50 MG TAB.ER.24H PO SCH (09:39)
[2017-09-25] MEDS: Aspirin 81 MG TAB.CHEW PO SCH (09:39)
[2017-09-25] MEDS: Furosemide 40 MG TABLET PO SCH (09:39)
[2017-09-25] MEDS: Insulin DETEMIR 100 UNIT/ML X5UNITS SQ SCH (09:48)
--- NOTE | 2017-09-25 10:03 | Discharge Summary ---
Date of Encounter: 09/25/17 Time of Encounter: 09:50 - Discharge Diagnosis (1) Streptococcal pneumonia Priority: Primary Status: Acute Comments: Healthcare associated. Hospitalized 06/2017 and was treated for pneumonia at that time. Now with recurrent SOB and cough. Chest CT concerning for RUL pneumonia. WBC 28K on admission; now normalized. Tmax 100.0. No tachycardia or hypotension. Respiratory PCR, sputum culture negative. Strep pneumoniae urinary antigen positive. Evaluated by Pulmonology who recommended a 10 day course of Levaquin. Symptomatically improved at time of discharge. Will need outpatient follow-up with Pulmonary and repeat CT chest in 4-6 weeks. (2) Nausea and vomiting Priority: Primary Status: Acute Comments: that started 1 day prior to admission. No abdominal pain, constipation or diarrhea. ABD CT with no acute abdomen or pelvic process. Etiology unknown, possibly component of gastroenteritis. Symptoms now resolved and tolerating PO intake without nausea or vomiting. Discharge home with PRN zofran. Qualifiers: Vomiting type: unspecified Vomiting Intractability: non-intractable Qualified Code(s): R11.2 - Nausea with vomiting, unspecified (3) Acute on chronic renal failure Priority: Secondary Status: Chronic Comments: stage III CKD. Now with prerenal THERESE on CKD secondary to poor PO intake and N/V prior to admission. Renal function normalized with IV fluids. Avoid nephrotoxic agents as possible. Recommend repeat CMP in 1-2 weeks with PCP. Qualifiers: Chronic kidney disease stage: stage 3 (moderate) Qualified Code(s): N17.9 - Acute kidney failure, unspecified; N18.3 - Chronic kidney disease, stage 3 ( moderate); N18.3 - Chronic kidney disease, stage 3 (moderate) (4) History of mitral valve replacement with bioprosthetic valve Priority: Secondary Status: Chronic Comments: per hx. 09/24/2017 TTE with normal seated bioprosthetic valve without evidence of stenosis (5) HTN (hypertension) Priority: Secondary Status: Chronic Comments: per hx. BP variable but acceptable. Continue home BP medications Qualifiers: Hypertension type: essential hypertension Qualified Code(s): I10 - Essential (primary) hypertension (6) BAILEY on CPAP Priority: Secondary Status: Chronic Comments: per hx. continue home CPAP (7) Type 2 diabetes mellitus Priority: Secondary Status: Chronic Comments: per hx. Hgb A1c 6.5%, blood sugars variable but acceptable. Continue home diabetes medication regimen Qualifiers: Diabetes mellitus complication status: with kidney complications Diabetes mellitus complication detail: with chronic kidney disease Diabetes mellitus terminal manager insulin use: with senior living use Chronic kidney disease stage: stage 3 (moderate) Qualified Code(s): E11.22 - Type 2 diabetes mellitus with diabetic chronic kidney disease; N18.3 - Chronic kidney disease, stage 3 ( moderate); N18.3 - Chronic kidney disease, stage 3 (moderate); Z79.4 - terminal operator (current) use of insulin; Z79.4 - terminal operator (current) use of insulin; Z79.4 - terminal operator (current) use of insulin; Z79.4 - senior living (current) use of insulin (8) Chronic diastolic (congestive) heart failure Priority: Secondary Status: Chronic Comments: 05/2017 TTE with EF 60%, mild diastolic dysfunction. Repeat TTE with EF 55% and indeterminate diastolic dysfunction. Appeared euvolemic. Continue home Lasix. (9) AAA (abdominal aortic aneurysm) Priority: Secondary Status: Chronic Comments: per hx. S/p endograft repair on 07/16/[address] Wade. Follow-up as previously planned. Qualifiers: Presence of rupture: without rupture Qualified Code(s): I71.4 - Abdominal aortic aneurysm, without rupture (10) CAD (coronary artery disease) Priority: Secondary Status: Chronic Comments: per hx. Asymptomatic, denied chest pain. Continue home ASA, statin, Plavix, BB Qualifiers: Coronary Disease-Associated Artery/Lesion type: [place] artery [place] vs. transplanted heart: [place] heart Associated angina: without angina Qualified Code(s): I25.10 - Atherosclerotic heart disease of [place] coronary artery without angina pectoris - Discharge Medications Prescriptions: Promethazine [Phenergan] 12.5 mg PO Q8HR PRN #21 tablet PRN Reason: Nausea And Vomiting levoFLOXacin [Levaquin] 750 mg PO Q48H #8 tablet Home Medications: Aspirin 81 mg PO DAILY 02/07/16 [History] Metoprolol XL (24 HR) Succ [Toprol Xl] 100 mg PO DAILY 08/21/16 [History] Insulin Glargine,Hum.rec.anlog [Lantus Solostar] 25 unit SQ DAILY 30 Days insuln.pen 09/14/16 [Rx] Furosemide [Lasix] 40 mg PO DAILY PRN 10/01/16 [History] Insulin LISPRO [HumaLOG] 2 - 12 units SQ TIDAC 11/11/16 [History] Clopidogrel [Plavix] 75 mg PO DAILY 07/16/17 [History] Omeprazole [PriLOSEC] 40 mg PO DAILY 09/21/17 [History] Sertraline [Zoloft] 50 mg PO DAILY 09/21/17 [History] Promethazine [Phenergan] 12.5 mg PO Q8HR PRN #21 tablet 09/25/17 [Rx] levoFLOXacin [Levaquin] 750 mg PO Q48H #8 tablet 09/25/17 [Rx] Allergies/Adverse Reactions: 3 Allergy/AdvReac Type Severity Reaction Status Date / Time codeine Allergy See Verified 07/18/17 07:22 Comments acetaminophen AdvReac Nausea Verified 07/18/17 07:22 [From Darvocet-N] morphine AdvReac Nausea Verified 07/18/17 07:22 propoxyphene AdvReac Nausea Verified 07/18/17 07:22 [From Darvocet-N] Procedures/tests Complete & Pending: Procedures Performed prior 72 hours Category Date Time Status ECG 12 lead ECG [ECG] Stat Y 09/22/17 11:13 Completed EV echocardiogram Routine Y 09/24/17 08:26 Completed Date of admission: 09/21/17 17:17 Primary care physician: Edgar Nguyen Jr, MD Consults: 09/23/17 13:37 Consult to Physical Therapy [CONS] Routine Comment: Evaluate, develop and implement POC Reason for Consult: possible home health 09/23/17 13:39 Consult to Occupational Therapy [CONS] Routine Comment: Evaluate, develop and implement POC Reason for Consult: possible home health 09/24/17 08:26 Consult to Pulmonology [CONS] Routine Consulting Provider: [facility] [place] Reason for Consult: recurrent pneumonia Call Completed: Yes Discharging clinician: Rubia Layne Anticipated date of discharge: 09/25/17 - Patient Status Disposition: Home, Self-Care Condition: Good Functional capacity at discharge: uses cane/walker Overall status at discharge: patient is progressing back to baseline - Discharge Instructions Instructions: Community-acquired Pneumonia (DC), Levofloxacin (By mouth), Promethazine (By mouth), How to Use an Incentive Spirometer (DC) Follow Up With: Edgar Nguyen Jr, MD [Primary Care Provider] - 10/01/17 10:00 am Additional Instructions: Please call your family doctor within 24 hours over the next business day to schedule follow-up appointment. Please follow up with pulmonology; it is recommended that you have a repeat CT scan of her chest in 4-6 weeks. - Diet and Activity Activity: increase activity as tolerated Diet: diabetic diet, low fat, low cholesterol Interval History: Michael examined at bedside. Patient says she feels significantly improved and would like to go home today if possible. Denies chest pain, has some shortness of breath with exertion but overall significantly improved. Has productive cough at times. No fever or chills overnight. Has intermittent nausea which is relieved with when necessary Zofran. Tolerating regular diet. No abdominal pain or loose stool. Hospital course: See assessment and plan for hospital course - Time Spent with Patient Total time spent providing and/or coordinating discharge services: Greater than 30 minutes (38 minutes spent on discharge) - Constitutional Vitals: Temp Pulse Resp BP Pulse Ox 97.6 F 63 18 139/78 96 09/25/17 07:45 09/25/17 07:45 09/25/17 07:45 09/25/17 07:45 09/25/17 07:45 General appearance: Present: cooperative, A&O X 3, pleasant, no acute distress, answers questions appropriately - Head Head exam: Present: atraumatic, normocephalic - Eye Eye exam: Present: PERRL, conjuntiva pink, sclera anicteric Pupils: Present: PERRL - Neck Neck exam general surgery: Present: supple, trachea midline. Absent: lymphadenopathy - Respiratory Respiratory exam: Present: rhonchi. Absent: accessory muscle use, rales, wheezes - Cardiovascular Cardiovascular exam: Present: RRR, +S1, +S2. Absent: diastolic murmur, gallop, rubs, systolic murmur - GI/Abdominal GI/Abdominal exam: Present: normal bowel sounds, soft, no peritoneal signs. Absent: distended, tenderness - Extremities Exam Extremities exam: Present: warm, radial pulses palpable and symmetrical. Absent : calf tenderness, cyanotic, pedal edema - Neurological Exam Neurological exam: Present: CN II-XII intact, oriented X3, no focal deficits. Absent: pronater drift, facial droop, speech deficit - Skin Skin exam: Present: dry, intact
[2017-09-25] MEDS: levoFLOXacin 750 MG TABLET PO SCH (10:25)
[2017-09-25 12:28] LABS: Procalcitonin 8.94 ng/mL (<=0.10)
[2017-09-26 11:40] LABS: Influenza B IgG 0.48 IV (<=0.89); Influenza B IgM 0.1 IV (<=0.89)
== END 2017-09-25 11:56 | disposition home or self-care (01) | DRG 193 ==
LOC: 3BNU 10:48 → EMEROO 10:48 → 3BNU 14:57
PROVIDERS: ADMIT Internal Medicine Nephrology; ATTEND Registered Nurse

== ENCOUNTER 2017-12-01 21:13 | Observation (INO) ==
[2017-12-01] MEDS ORDERED: Ipratropium/Albuterol Neb 3 ML IH ONE ×2 (22:17→22:41)
[2017-12-01] MEDS ORDERED: methylPREDNISolone 125 MG/2 ML VIAL IVP ONE (22:17)
--- NOTE | 2017-12-01 22:25 | Emergency Department Note ---
Disposition Clinical Impression: SOB (shortness of breath) Disposition: Still a Patient Referrals: Edgar Nguyen Jr, MD [Primary Care Provider] - Forms: ED Satisfaction Letter SOB HPI - General Chief Complaint: ED Shortness of Breath/Dyspnea Stated Complaint: Shortness of breath Source: EMS Limitations: no limitations Nursing Notes Reviewed: Yes Vital Signs Reviewed: Yes - History of Present Illness 77-year-old female presents emergency of her cough and shortness of breath. She states she started coughing 3 days ago. Shortness of breath started yesterday. History of pneumonia a few times in the fall and winter already. She is concerned she is 11 another pneumonia. She admits to some sputum production. No documented fevers. No chest pain. Just some loose stool associated over the past week. She denies any other complaints at this time. She does not wear home oxygen all the time. No lung history. No COPD. No smoking. She does not do any breathing treatments. - Related Data Home Medications Medication Instructions Recorded Confirmed Aspirin 81 mg PO DAILY 02/07/16 09/21/17 Metoprolol XL (24 HR) Succ [Toprol 100 mg PO DAILY 08/21/16 09/21/17 Xl] Furosemide [Lasix] 40 mg PO DAILY PRN 10/01/16 09/21/17 Insulin LISPRO [HumaLOG] 2 - 12 units SQ TIDAC 11/11/16 09/21/17 Clopidogrel [Plavix] 75 mg PO DAILY 07/16/17 09/21/17 Omeprazole [PriLOSEC] 40 mg PO DAILY 09/21/17 09/21/17 Sertraline [Zoloft] 50 mg PO DAILY 09/21/17 09/21/17 Previous Rx's Medication Instructions Recorded Insulin Glargine,Hum.rec.anlog 25 unit SQ DAILY 30 Days 09/14/16 [Lantus Solostar] insuln.pen Promethazine [Phenergan] 12.5 mg PO Q8HR PRN #21 tablet 09/25/17 levoFLOXacin [Levaquin] 750 mg PO Q48H #8 tablet 09/25/17 Allergies Allergy/AdvReac Type Severity Reaction Status Date / Time codeine Allergy See Verified 07/18/17 07:22 Comments acetaminophen AdvReac Nausea Verified 07/18/17 07:22 [From Darvocet-N] morphine AdvReac Nausea Verified 07/18/17 07:22 propoxyphene AdvReac Nausea Verified 07/18/17 07:22 [From [place]-N] Review of Systems: Gen.: No fevers or chills or new weakness Eyes: Denies double vision or any vision changes Ears: Denies any otalgia Pharynx: Denies sore throat CV: Denies chest pain. Denies palpitations Respiratory: Positive for cough and shortness of breath. GI: Denies any nausea, vomiting, diarrhea, constipation. Denies abdominal pain Neuro: Denies any headache. No problems with ambulation. No numbness. Skin: Denies any rashes or abrasions Psych: Denies any depression or suicidal or homicidal ideation Musculoskeletal: Denies any arthralgias or myalgias Past Medical History - Past Medical History Medical history: Reports: aortic aneurysm, arthritis, coronary artery disease, diabetes, myocardial infarction, renal disease Surgical history: Reports: appendectomy, cholecystectomy, colectomy, coronary bypass (CABG), heart valve replacement, hysterectomy, knee replacement, other, pacemaker Psychiatric history: Reports: anxiety, depression - Social History Smoking Status: Never smoker Smokeless Tobacco Status: No Alcohol use: Reports: none Drug use: Reports: none Physical Exam - General Limitations: no limitations General appearance: alert - Head Head exam: atraumatic, normocephalic - Eye Eye exam: Present: normal appearance - ENT ENT exam: normal exam - Neck Neck exam: Present: normal inspection - Chest Chest inspection: Present: normal inspection - Respiratory Respiratory exam: Present: wheezes, other (+rhonchi bilat in lower lung jarquin) - Cardiovascular Cardiovascular exam: Present: regular rate, normal rhythm - Abdominal Exam Abdominal exam: Present: soft, Non-Tender, normal bowel sounds - Extremities Exam Extremities exam: Present: normal inspection - Back Exam Back exam: Present: normal inspection - Neurological Exam Neurological exam: Present: alert, oriented X3 - Psychiatric Psychiatric exam: Present: normal affect, normal mood - Skin Skin exam: Present: warm, dry, intact Course Vital Signs Temperature 98.2 F 12/01/17 21:28 Pulse Rate 87 12/01/17 21:28 Respiratory Rate 18 12/01/17 21:28 Blood Pressure 162/85 12/01/17 21:28 O2 Sat by Pulse Oximetry 100 12/01/17 21:28 Temperature 98.2 F 12/01/17 21:28 Pulse Rate 87 12/01/17 21:28 Respiratory Rate 18 12/01/17 21:28 Blood Pressure 162/85 12/01/17 21:28 O2 Sat by Pulse Oximetry 100 12/01/17 21:28 Oxygen Delivery Oxygen Delivery Nasal Cannula Shortness of Breath/Dyspnea - Medical Records Medical records reviewed: Yes I reviewed the patient's medical records. - Lab Data Lab results reviewed: Yes I reviewed the patient's lab results. Result diagrams: 12/01/17 22:03 Lab Results 12/01/17 12/01/17 Range/Units 22:03 22:03 WBC 5.9 (4.3-11.1) K/mcL RBC 4.63 (3.82-4.97) M/mcL Hgb 12.6 (11.5-15.4) g/dL Hct 40.8 (35.3-44.9) % MCV 88.1 (83.0-100.0) fL MCH 27.2 L (28.0-33.3) pg MCHC 30.9 L (31.6-35.5) g/dL RDW 15.8 H (11.5-14.5) % Plt Count 247 (140-400) K/mcL MPV 9.6 (9.4-12.4) fL Immature Gran % 0.3 (0-4) % Seg Neutrophils % 62.8 % Lymphocytes % 22.6 % Monocytes % 7.4 % Eosinophils % 6.2 % Basophils % 0.7 % Neutrophils # 3.7 (1.6-8.9) K/mcL Lymphocytes # 1.3 (0.6-4.6) K/mcL Monocytes # 0.4 (0.0-1.3) K/mcL Eosinophils # 0.4 (0.0-0.6) K/mcL Basophils # 0.0 (0.0-0.2) K/mcL Immature Plt Fraction 2.6 (1.1-6.1) % PT 10.6 (9.4-12.1) Seconds INR 1.0 APTT 26.1 (26.0-36.0) Seconds - Radiology Data Radiology results reviewed: Yes I reviewed the patient's radiology results.
[2017-12-01 22:37] LABS: Basophils % 0.7 %; Eosinophils # 0.4 K/mcL (0.0-0.6); Eosinophils % 6.2 %; Hematocrit 40.8 % (35.3-44.9); Hemoglobin 12.6 g/dL (11.5-15.4); Immature Granulocytes % 0.3 % (0-4); Immature Platelets 2.6 % (1.1-6.1); Lymphocytes # 1.3 K/mcL (0.6-4.6); Lymphocytes % 22.6 %; Mean Corpuscular HGB Conc 30.9 g/dL (31.6-35.5); Mean Corpuscular Hemoglobin 27.2 pg (28.0-33.3); Mean Corpuscular Volume 88.1 fL (83.0-100.0); Mean Platelet Volume 9.6 fL (9.4-12.4); Monocytes # 0.4 K/mcL (0.0-1.3); Monocytes % 7.4 %; Neutrophils # 3.7 K/mcL (1.6-8.9); Platelet Count 247 K/mcL (140-400); Red Blood Count 4.63 M/mcL (3.82-4.97); Red Cell Distribution Width 15.8 % (11.5-14.5); Segmented Neutrophils % 62.8 %
[2017-12-01] MEDS ORDERED: Ondansetron 4 MG/2 ML VIAL IVP ONE (22:43)
[2017-12-01 22:48] LABS: Prothrombin Time 10.6 Seconds (9.4-12.1)
[2017-12-01 22:51] LABS: Activated Partial Thrombo Time 26.1 Seconds (26.0-36.0)
--- NOTE | 2017-12-01 23:23 | Emergency Department Note ---
Disposition Clinical Impression: SOB (shortness of breath), Nausea, Weakness Diarrhea Qualifiers: Diarrhea type: unspecified type Qualified Code(s): R19.7 - Diarrhea, unspecified Disposition: Admitted As Inpatient Condition: Good Time of Disposition: 01:59 SOB HPI - General Chief Complaint: ED Shortness of Breath/Dyspnea Stated Complaint: Shortness of breath Time Seen by Provider: 12/01/17 22:40 Source: EMS Limitations: no limitations Nursing Notes Reviewed: Yes Vital Signs Reviewed: Yes - Related Data Home Medications Medication Instructions Recorded Confirmed Aspirin 81 mg PO DAILY 02/07/16 09/21/17 Metoprolol XL (24 HR) Succ [Toprol 100 mg PO DAILY 08/21/16 09/21/17 Xl] Furosemide [Lasix] 40 mg PO DAILY PRN 10/01/16 09/21/17 Insulin LISPRO [HumaLOG] 2 - 12 units SQ TIDAC 11/11/16 09/21/17 Clopidogrel [Plavix] 75 mg PO DAILY 07/16/17 09/21/17 Omeprazole [PriLOSEC] 40 mg PO DAILY 09/21/17 09/21/17 Sertraline [Zoloft] 50 mg PO DAILY 09/21/17 09/21/17 Previous Rx's Medication Instructions Recorded Insulin Glargine,Hum.rec.anlog 25 unit SQ DAILY 30 Days 09/14/16 [Lantus Solostar] insuln.pen Promethazine [Phenergan] 12.5 mg PO Q8HR PRN #21 tablet 09/25/17 levoFLOXacin [Levaquin] 750 mg PO Q48H #8 tablet 09/25/17 Allergies Allergy/AdvReac Type Severity Reaction Status Date / Time codeine Allergy See Verified 07/18/17 07:22 Comments acetaminophen AdvReac Nausea Verified 07/18/17 07:22 [From Darvocet-N] morphine AdvReac Nausea Verified 07/18/17 07:22 propoxyphene AdvReac Nausea Verified 07/18/17 07:22 [From Darvocet-N] Past Medical History - Past Medical History Medical history: Reports: aortic aneurysm, arthritis, coronary artery disease, diabetes, myocardial infarction, renal disease Surgical history: Reports: appendectomy, cholecystectomy, colectomy, coronary bypass (CABG), heart valve replacement, hysterectomy, knee replacement, other, pacemaker Psychiatric history: Reports: anxiety, depression - Social History Smoking Status: Never smoker Smokeless Tobacco Status: No Alcohol use: Reports: none Drug use: Reports: none Physical Exam - General Limitations: no limitations General appearance: alert Course Course Narrative: Patient initially seen by Dr. Baker. Please see his earlier documentation for additional details. Care of this patient was transferred over to co due to shift change. Patient is a 77-year-old female nonsmoker. She tells me that she has had a cough for 3 or 4 days, with shortness of breath 2 days worsening today. She mentions she has been feeling more tired lately, and has had diarrhea for 2 and half weeks. She mentions approximately months ago she was hospitalized, and again 3 months ago, times for pneumonia, and urinary tract infection. She tells me that she had seen a hammer heater last week because she had been referred for recurrent pneumonia. She mentions that they have told her at that time her lungs had felt fine. Patient uses CPAP, and has access to amoxicillin although she states that she does not need to use it constantly. She does mention that her breathing had been improved with oxygen, as well as albuterol by EMS. Workup has been initiated. Solu-Medrol has been ordered. Her lungs still wheezy. She is in no acute distress. She denies any chest pain. She denies any fever at home. Her vitals right now are within normal limits. No bilateral lower extremity edema. Ordered DuoNeb. - Reevaluation(s) Reevaluation #1: No improvement with duonebs and solumedrol. Pt continues to feel weak and nauseas. Discussed with Dr. Packer who agreed with decision to admit. Pt was able to void recently. UA pending. Will plan to contact hospitalist. Time: 01:01 Reevaluation #2: Urinalysis does show evidence of urinary tract infection. Rocephin ordered. Hospitalist has been paged. Time: 01:48 Reevaluation #3: Patient was discussed with hospitalist Dr. Vazquez, who agreed to accept patient, and also requested an CT of abdomen and pelvis. Time: 01:58 Vital Signs Temperature 98.2 F 12/01/17 21:28 Pulse Rate 87 12/01/17 21:28 Respiratory Rate 18 12/01/17 21:28 Blood Pressure 162/85 12/01/17 21:28 O2 Sat by Pulse Oximetry 100 12/01/17 21:28 Temperature 98.2 F 12/01/17 21:28 Pulse Rate 86 12/01/17 23:26 Respiratory Rate 16 12/01/17 23:26 Blood Pressure 139/65 12/01/17 23:26 O2 Sat by Pulse Oximetry 100 12/01/17 23:26 Oxygen Delivery Oxygen Delivery Nasal Cannula Shortness of Breath/Dyspnea - Lab Data Lab results reviewed: Yes I reviewed the patient's lab results. Result diagrams: 12/01/17 22:03 12/01/17 22:03 Lab Results 12/01/17 12/01/17 12/01/17 Range/Units 22:03 22:03 22:03 WBC 5.9 (4.3-11.1) K/mcL RBC 4.63 (3.82-4.97) M/mcL Hgb 12.6 (11.5-15.4) g/dL Hct 40.8 (35.3-44.9) % MCV 88.1 (83.0-100.0) fL MCH 27.2 L (28.0-33.3) pg MCHC 30.9 L (31.6-35.5) g/dL RDW 15.8 H (11.5-14.5) % Plt Count 247 (140-400) K/mcL MPV 9.6 (9.4-12.4) fL Immature Gran % 0.3 (0-4) % Seg Neutrophils % 62.8 % Lymphocytes % 22.6 % Monocytes % 7.4 % Eosinophils % 6.2 % Basophils % 0.7 % Neutrophils # 3.7 (1.6-8.9) K/mcL Lymphocytes # 1.3 (0.6-4.6) K/mcL Monocytes # 0.4 (0.0-1.3) K/mcL Eosinophils # 0.4 (0.0-0.6) K/mcL Basophils # 0.0 (0.0-0.2) K/mcL Immature Plt Fraction 2.6 (1.1-6.1) % PT 10.6 (9.4-12.1) Seconds INR 1.0 APTT 26.1 (26.0-36.0) Seconds Sodium 139 (136-145) mEq/L Potassium 3.8 (3.5-5.1) mEq/L Chloride 111 H (98-107) mEq/L Carbon Dioxide 20 L (23-29) mEq/L BUN 19 (8-23) mg/dL Creatinine 1.65 H (0.60-1.20) mg/dL Est GFR ( Amer) 36 L (> 60) Est GFR (Non-Af Amer) 30 L (> 60) BUN/Creatinine Ratio 12 (6-26) Glucose 145 H (70-105) mg/dL Calculated Osmolality 293 (280-300) Lactic Acid (0.5-2.2) mmol/L Calcium 9.4 (8.6-10.3) mg/dL Troponin I 0.03 (< 0.04) ng/mL B-Natriuretic Peptide (Less than 100) pg/mL 12/01/17 12/01/17 12/02/17 Range/Units 22:03 22:03 00:00 WBC (4.3-11.1) K/mcL RBC (3.82-4.97) M/mcL Hgb (11.5-15.4) g/dL Hct (35.3-44.9) % MCV (83.0-100.0) fL MCH (28.0-33.3) pg MCHC (31.6-35.5) g/dL RDW (11.5-14.5) % Plt Count (140-400) K/mcL MPV (9.4-12.4) fL Immature Gran % (0-4) % Seg Neutrophils % % Lymphocytes % % Monocytes % % Eosinophils % % Basophils % % Neutrophils # (1.6-8.9) K/mcL Lymphocytes # (0.6-4.6) K/mcL Monocytes # (0.0-1.3) K/mcL Eosinophils # (0.0-0.6) K/mcL Basophils # (0.0-0.2) K/mcL Immature Plt Fraction (1.1-6.1) % PT (9.4-12.1) Seconds INR APTT (26.0-36.0) Seconds Sodium (136-145) mEq/L Potassium (3.5-5.1) mEq/L Chloride (98-107) mEq/L Carbon Dioxide (23-29) mEq/L BUN (8-23) mg/dL Creatinine (0.60-1.20) mg/dL Est GFR ( Amer) (> 60) Est GFR (Non-Af Amer) (> 60) BUN/Creatinine Ratio (6-26) Glucose (70-105) mg/dL Calculated Osmolality (280-300) Lactic Acid 1.0 1.1 (0.5-2.2) mmol/L Calcium (8.6-10.3) mg/dL Troponin I (< 0.04) ng/mL B-Natriuretic Peptide 173 H (Less than 100) pg/mL - Radiology Data Radiology results reviewed: Yes I reviewed the patient's radiology results. - EKG Data EKG attestation: Yes I reviewed and interpreted this EKG. EKG results narrative: Ventricular rate 91, NM interval 147, QRS duration 97, QT 395, QTC 443, moderate ST depression, ectopic atrial rhythm Attestation Statement - Attestation Attestation: I, Jaya Packer MD, personally evaluated this patient and discussed their management with the midlevel provicer, PAC/GRADUATION COACH. I reviewed the midlevel provider 's note and agree with the documented findings, medical decision making, and plan of care. 77-year-old female with history of COPD on home oxygen presents to the emergency department complaining of increased shortness of breath for the past day or 2. Increased cough with some white sputum. No fever. No chest pain. States her oxygen does not seem to be helping. On examination patient is a well-developed well-nourished elderly female in mild respiratory distress. She is alert and oriented 3. There is no cyanosis or diaphoresis. Patient is tachypneic. Chest is nontender to palpation. Breath sounds are decreased bilaterally with scattered diffuse bilateral expiratory wheezes. Heart regular rate and rhythm. Abdomen soft with normal bowel sounds. Mild mid abdominal tenderness. Labs reviewed. UTI. No acute abnormality on chest x-ray. Patient received DuoNeb treatments and Solu-Medrol with little improvement. Continues to have wheezing and tachypnea despite good O2 sats. The hospitalist , Dr. Vazquez, was consulted and accepted admission of the patient.
[2017-12-01 23:32] LABS: Calcium 9.4 mg/dL (8.6-10.3); Potassium 3.8 mEq/L (3.5-5.1)
[2017-12-02 00:38] LABS: Troponin I 0.03 ng/mL (< 0.04)
[2017-12-02] MEDS ORDERED: Prochlorperazine 10 MG/2 ML VIAL IVP ONE (01:03)
[2017-12-02 01:17] LABS: Bilirubin,Urine Negative (Negative); Blood,Urine Trace (Negative); Clarity,Urine Cloudy (Clear); Color,Urine Yellow (Yellow); Glucose,Urine (UA) Normal (Normal); Ketones,Urine Negative (Negative); Leukocyte Esterase,Urine Small (Negative); Nitrite,Urine Positive (Negative); Protein,Urine 100 mg/dL (Neg-Trace); Urobilinogen,Urine Normal (Normal)
[2017-12-02 01:18] LABS: Bacteria,Urine Many per hpf (None-Few); Hyaline Casts,Urine None Seen per lpf (None-Few); Squamous Epithelial Cell,Urine Many per lpf (None-Few); WBC,Urine 30-50 per hpf (0-3)
[2017-12-02] MEDS ORDERED: cefTRIAXone 1,000 MG in Water for inj. (sterile) 20 ML 10 ML IVP ONE (01:46)
[2017-12-02] MEDS ORDERED: Naloxone 0.4 MG/ML INJ IVP PRN (08:04)
--- NOTE | 2017-12-02 08:12 | Internal Med History&Physical ---
<Angela Mas - Last Filed: 12/02/17 14:58> Date of Encounter: 12/02/17 Time of Encounter: 07:45 Assessment and Plan (1) COPD (chronic obstructive pulmonary disease) Current visit: Yes Status: Chronic Acute exacerbation complicated by acute exacerbation of CHF. Pt recently hospitalized with pneumonia twice since July,. Pt had returned to baseline when she started having increased SOB and non- productive cough 3-4 days ago. Wheezing heard in all posterior lung jarquin. Chest xray negative for acute process, chest CT showed chronic right pleural effusion. Pt has no leukocytosis or fever, denies subjective fevers at home. No COPD medications listed on home medication list Continue 02, titrate to maintain sats > 92% Duonebs scheduled, albuterol nebulizers prn Prednisone po Chest X-Ray 12/01/17 22:15 IMPRESSION: No acute cardiopulmonary findings. D/ / Hank Santamaria MD / Hank Santamaria MD Interpreting Provider: Hank Santamaria MD Abdomen/Pelvis CT 12/02/17 01:56 IMPRESSION: No acute process identified. D/ / Maxime Garay MD / Maxime Garay MD Interpreting Provider: Maxime Garay MD Qualifiers: COPD type: unspecified COPD Qualified Code(s): J44.9 - Chronic obstructive pulmonary disease, unspecified (2) Dyspnea Current visit: Yes Status: Acute Patient reports 3-4 days of shortness of breath and nonproductive cough. Plan as above. Qualifiers: Dyspnea type: dyspnea on exertion Qualified Code(s): R06.09 - Other forms of dyspnea (3) HTN (hypertension) Current visit: Yes Status: Chronic chronic. Well controlled. Continue home medications. Hydralazine 10 mg IV push every 6 hours as needed for systolic blood pressure greater than 180. Qualifiers: Hypertension type: essential hypertension Qualified Code(s): I10 - Essential (primary) hypertension (4) CAD (coronary artery disease) Current visit: Yes Status: Chronic per patient history. Continue aspirin, Plavix, beta pankaj. Patient denies chest pain. LHC done in May,. It showed triple-vessel CAD, status post CABG with 2 of 2 patent bypass grafts. Continue telemetry Qualifiers: Coronary Disease-Associated Artery/Lesion type: [place] artery [place] vs. transplanted heart: [place] heart Associated angina: without angina Qualified Code(s): I25.10 - Atherosclerotic heart disease of [place] coronary artery without angina pectoris (5) Acute and chronic respiratory failure Current visit: Yes Status: Chronic Patient requiring supplemental oxygen above baseline. Currently at 3-4 L to maintain sats greater than 92%. Attempt to wean as patient becomes less acutely ill. Qualifiers: Respiratory failure complication: hypoxia Qualified Code(s): J96.21 - Acute and chronic respiratory failure with hypoxia (6) Acute on chronic renal failure Current visit: No Status: Chronic Chronic renal disease stage III. Serum creatinine 1.65, GFR 30. Renal function slightly worsened patient's baseline. Avoid nephrotoxins THERESE could be related to chronic diarrhea, dehydration. Encourage by mouth intake and monitor labs. Qualifiers: Acute renal failure type: unspecified Chronic kidney disease stage: stage 3 (moderate) Qualified Code(s): N17.9 - Acute kidney failure, unspecified; N18.3 - Chronic kidney disease, stage 3 (moderate); N18.3 - Chronic kidney disease, stage 3 (moderate) (7) Acute on chronic diastolic heart failure Current visit: Yes Status: Acute Mild acute exacerbation of diastolic CHF. Patient has no peripheral edema, Rales heard in posterior lung jarquin. chest x-ray was for acute process, abdomen and pelvis CT showed chronic right pleural effusion and bibasilar atelectasis. Continue O2 Continue home dose of Lasix. Patient had echo August, that showed preserved ejection fraction, indeterminant LV diastolic function, bioprosthetic mitral valve, mild TR. Chest X-Ray 12/01/17 22:15 IMPRESSION: No acute cardiopulmonary findings. D/ / Hank Santamaria MD / Hank Santamaria MD Interpreting Provider: Hank Santamaria MD Abdomen/Pelvis CT 12/02/17 01:56 IMPRESSION: No acute process identified. D/ / Maxime Garay MD / Maxime Garay MD Interpreting Provider: Maxime Garay MD (8) History of mitral valve replacement with bioprosthetic valve Current visit: Yes Status: Chronic patient does not appear to be on anticoagulation. Continue aspirin and Plavix (9) Diarrhea Current visit: Yes Status: Acute Patient reports approximately 2-1/2 week history of diarrhea without abdominal cramping. She reports 12-15 episodes daily with no hematochezia. Patient with recent hospitalizations in July and August with IV antibiotic treatment for pneumonias. Electrolytes and fluid balance appear to be within normal limits. She appears to be euvolemic and denies any recent significant weight loss. Denies change in appetite. GI panel ordered Consider GI consult for scope based on results. Qualifiers: Diarrhea type: unspecified type Qualified Code(s): R19.7 - Diarrhea, unspecified (10) Type 2 diabetes mellitus Current visit: Yes Status: Chronic Sliding scale insulin, Accu-Cheks before meals at bedtime, diabetic diet. Last A1c 6.5% in August,. Qualifiers: Diabetes mellitus complication status: with kidney complications Diabetes mellitus complication detail: with chronic kidney disease Diabetes mellitus oil heaterman insulin use: unspecified oil heaterman insulin use status Chronic kidney disease stage: stage 3 (moderate) Qualified Code(s): E11.22 - Type 2 diabetes mellitus with diabetic chronic kidney disease; N18.3 - Chronic kidney disease, stage 3 (moderate); N18.3 - Chronic kidney disease, stage 3 (moderate) (11) UTI (urinary tract infection) Current visit: Yes Status: Acute Urine indicative of UTI with trace of blood, positive for nitrites, small amount leukocyte esterase, many bacteria, also many squamous epithelial cells. Urine culture is ordered and pending. Rocephin 1 g IV daily, narrow antibiotic as culture and sensitivity are available. Qualifiers: Urinary tract infection type: acute cystitis Hematuria presence: with hematuria Qualified Code(s): N30.01 - Acute cystitis with hematuria (12) DVT prophylaxis Current visit: Yes Status: Acute Lovenox subcutaneous. Internal Medicine - H&P: HPI Chief complaint: Shortness of breath, diarrhea for 2.5 weeks Admitted From: Home Plans for Post Hospital Care: Home History of present illness: Ms. Florez is a 77 year old female with past medical history of coronary artery disease, stage III chronic kidney disease, hypertension, diabetes, congestive heart failure, depression. Patient presented to the emergency department with complaints of 3-4 day history of shortness of breath and nonproductive cough. Patient had 2 recent hospitalizations in July and August 2017 for pneumonia. She also reports 2-1/2 week history of diarrhea that she describes as liquid and reports to 15 episodes per day. She denies any cramping and states that the diarrhea just happens and she is unaware. She denies hematochezia, fever, chills. Patient also reports recent history of urinary urgency and denies any other urinary symptoms, no flank pain or dysuria. Past Med Surg Social Fam HX - Past Medical History Medical history: aortic aneurysm, arthritis, coronary artery disease, diabetes, myocardial infarction, renal disease, other Psychiatric history: anxiety, depression - Past Surgical History Surgical History: appendectomy, cholecystectomy, colectomy, coronary bypass ( CABG), heart valve replacement, hysterectomy, knee replacement, other, pacemaker - Social History Smoking Status: Never smoker Smokeless Tobacco Status: No Alcohol use: none Drug use: none - Family History Father Living Status: Hx Family Cardiac Disorders: Yes (aortic aneurysm) Mother Living Status: Hx Family Cardiac Disorders: Yes Hx Family Respiratory Disorders: Yes (COPD) Hx Family Cancer: Yes (Colon.) Hx Family GI Disorders: No Hx Family Endocrine Disorder: No Hx Family Neuromuscular Disorders: No Hx Family Neurologic Disorders: No Hx Family HEENT Disorders: No Hx Family Autoimmune Disorders: No Internal Medicine - H&P: Meds Aspirin 81 mg PO DAILY 02/07/16 [History] Metoprolol XL (24 HR) Succ [Toprol Xl] 100 mg PO DAILY 08/21/16 [History] Furosemide [Lasix] 40 mg PO DAILY PRN 10/01/16 [History] Insulin LISPRO [HumaLOG] 2 - 12 units SQ TIDAC 11/11/16 [History] Clopidogrel [Plavix] 75 mg PO DAILY 07/16/17 [History] Sertraline [Zoloft] 50 mg PO DAILY 09/21/17 [History] Promethazine [Phenergan] 12.5 mg PO Q8HR PRN #21 tablet 09/25/17 [Rx] Insulin Glargine,Hum.rec.anlog [Lantus Solostar] 25 unit SQ DAILY PRN 12/02/17 [ History] 3 Allergy/AdvReac Type Severity Reaction Status Date / Time acetaminophen AdvReac Nausea Verified 07/18/17 07:22 [From Darvocet-N] codeine AdvReac See Verified 12/02/17 10:01 Comments morphine AdvReac Nausea Verified 07/18/17 07:22 propoxyphene AdvReac Nausea Verified 07/18/17 07:22 [From Darvocet-N] All Systems PM: A 10-system review of systems was performed and is negative for pertinent findings except as documented above in the HPI. - Constitutional Constitutional: no chills, no fever(s), no weakness, no weight loss - EENT Nose, mouth and throat: no hoarseness, no post-nasal drip, no sinus pain, no sinus pressure, no sore throat - Cardiovascular Cardiovascular ROS IM: dyspnea on exertion, no diaphoresis, no edema, no irregular heart rhythm, no palpitations - Respiratory Respiratory: dyspnea, no hemoptysis, no wheezing, no chest congestion, no excessive phlegm production - Gastrointestinal Gastrointestinal: change in bowel habits, change in stool character, diarrhea, loose stools, nausea, no abdominal pain, no constipation, no cramping, no hematochezia - Genitourinary Genitourinary: urinary urgency, no difficulty urinating, no dysuria, no urinary frequency, no urinary hesitancy, no urinary incontinence - Musculoskeletal Musculoskeletal ROS IM: no muscle weakness, no numbness, no tingling - Integumentary Integumentary IM: no rash - Neurological Neurological ROS: no confusion, no dizziness, no frequent falls, no headache(s) - Constitutional Vitals: Temp Pulse Resp BP Pulse Ox 97.7 F 108 16 138/78 95 12/02/17 07:06 12/02/17 07:06 12/02/17 07:06 12/02/17 07:06 12/02/17 07:06 General appearance: Present: cooperative, A&O X 3, pleasant, no acute distress, answers questions appropriately - Head Head exam: Present: atraumatic, normal inspection, normocephalic - Eye Eye exam: Present: normal appearance, conjuntiva pink, sclera anicteric - Neck Neck exam general surgery: Present: supple, trachea midline. Absent: lymphadenopathy - Respiratory Respiratory exam: Present: rhonchi, wheezes. Absent: accessory muscle use, decreased breath sounds, CTAB, rales, respiratory distress - Cardiovascular Cardiovascular exam: Present: RRR, +S1, +S2. Absent: diastolic murmur, gallop, rubs, systolic murmur - GI/Abdominal GI/Abdominal exam: Present: normal bowel sounds, soft. Absent: distended, hepatomegaly, tenderness - Extremities Exam Extremities exam: Present: normal capillary refill, normal inspection, warm, radial pulses palpable and symmetrical. Absent: calf tenderness, cyanotic, pedal edema, tenderness - Neurological Exam Neurological exam: Present: alert, oriented X3, no focal deficits. Absent: facial droop, speech deficit - Skin Skin exam: Present: dry, intact, normal color, warm. Absent: rash Internal Med - H&P Results - Labs CBC & Chem 7: 12/01/17 22:03 12/01/17 22:03 Labs: Urine 12/02/17 Range/Units Unknown Urine Color Yellow (Yellow) Urine Clarity Cloudy A (Clear) Urine pH 6.0 (5.0-8.0) pH Units Ur Specific [place] 1.030 H (1.010-1.025) Urine Protein 100 H (Neg-Trace) mg/dL Urine Glucose (UA) Normal (Normal) mg/dL <Michelle Cadet - Last Filed: 12/02/17 16:05> Date of Encounter: 12/02/17 Internal Medicine - H&P: HPI History of present illness: Ms. Florez is a 77 year old female All Systems PM: A 10-system review of systems was performed and is negative for pertinent findings except as documented above in the HPI. - Constitutional Vitals: Temp Pulse Resp BP Pulse Ox 97.7 F 94 16 135/77 95 12/02/17 15:25 12/02/17 15:25 12/02/17 15:25 12/02/17 15:25 12/02/17 15:25 Internal Med - H&P Results - Labs CBC & Chem 7: 12/01/17 22:03 12/01/17 22:03 Labs: Urine 12/02/17 Range/Units Unknown Urine Color Yellow (Yellow) Urine Clarity Cloudy A (Clear) Urine pH 6.0 (5.0-8.0) pH Units Ur Specific [place] 1.030 H (1.010-1.025) Urine Protein 100 H (Neg-Trace) mg/dL Urine Glucose (UA) Normal (Normal) mg/dL - Attending Attestation Personally performed a uonl-fn-golo diagnostic evaluation of this patient. My findings are as follows A 77-year-old female with a history of COPD who is on home oxygen but then does not use it consistently, presented to the ER with shortness of breath and nonproductive cough for the last 3-4 days. She stated that she does have some sick contacts at her home and gradually got to a point where she needed to come to the ER. On examination wheezing is heard across both lung jarquin her chest x -ray is negative for new pneumonia(she has been hospitalized for pneumonia in the past) She also complains of frequency of urination and her urine is consistent with a acute cystitis. She has been given IV antibiotics in the ER and we will be continuing the same on the floor and await for cultures to switch to oral antibiotics. I will also instruct the nurses to continue to try to wean her oxygen down to room air and we will try to ambulate her tomorrow and see what her exact oxygen needs are. Regardless she should already have home oxygen and worse case scenario, she will be advised to go home with home oxygen. I would also recommend sending her out with a prolonged steroid taper and a course of 7-10 days.-Discussed this plan of care exclusively with nurse practitioner. Already feels significantly improved with steroids that she got in the ER. We will continue darrius reese on the floor Kendell Cadet November, 1230pm
[2017-12-02] MEDS ORDERED: Albuterol 2.5 MG/3 ML NEBULIZER IH PRN (08:22)
[2017-12-02] MEDS: Ipratropium/Albuterol Neb 3 ML IH SCH ×5 (08:33→23:00)
[2017-12-02] MEDS ORDERED: D5% in Water 1,000 ML IVC PRN (08:42)
[2017-12-02] MEDS ORDERED: *HR* Dextrose 50 % in Water (Syg) 50 ML SYRINGE IVP PRN (08:42)
[2017-12-02] MEDS ORDERED: Dextrose Gel 15 GM/37.5 ML TUBE PO PRN ×2 (08:42)
[2017-12-02] MEDS: predniSONE 20 MG TABLET PO SCH (09:25)
[2017-12-02] MEDS: Insulin LISPRO 300 UNITS/3 ML VIAL SQ SCH ×3 (12:39→21:16)
[2017-12-02 14:30] LABS: Adenovirus F 40/41 PCR Not detected (Not detect); Astrovirus PCR Not detected (Not detect); C.difficile Toxin A/B by PCR Not detected (Not detect); Campylobacter by PCR Not detected (Not detect); Cryptosporidium by PCR Not detected (Not detect); Cyclospora cayetanensis PCR Not detected (Not detect); E. coli O157 by PCR Not detected (Not detect); Entamoeba histolytica PCR Not detected (Not detect); Enteroaggregative E.coli(EAEC) Not detected (Not detect); Enteropathogenic E.coli(EPEC) Not detected (Not detect); Enterotoxigenic E.coli (ETEC) Not detected (Not detect); Giardia lamblia PCR Not detected (Not detect); Norovirus GI/GII PCR Not detected (Not detect); Plesiomonas shigelloides PCR Not detected (Not detect); Rotavirus A PCR Not detected (Not detect); Salmonella PCR Not detected (Not detect); Sapovirus PCR Not detected (Not detect); Shig/EnteroinvasiveE coli EIEC Not detected (Not detect); Shigalike tox-prod E coli STEC Not detected (Not detect); Vibrio PCR Not detected (Not detect); Vibrio cholerae PCR Not detected (Not detect); Yersinia enterocolitica PCR Not detected (Not detect)
[2017-12-02] MEDS ORDERED: predniSONE 20 MG TABLET PO ONE (15:05)
[2017-12-02 18:57] LABS: Adenovirus Not Detected (Not Detect); Bordetella Pertussis Not Detected (Not Detect); Chlamydophila pneumoniae Not Detected (Not Detect); Coronavirus 229E Not Detected (Not Detect); Coronavirus HKU1 Not Detected (Not Detect); Coronavirus NL63 Not Detected (Not Detect); Coronavirus OC43 Not Detected (Not Detect); Human Metapneumovirus Not Detected (Not Detect); Human Rhinovirus/Enterovirus ***DETECTED*** (Not Detect); Influenza A Subtype 2009 H1 Not Detected (Not Detect); Influenza A Untypeable Not Detected (Not Detect); Influenza B Not Detected (Not Detect); Mycoplasma pneumoniae Not Detected (Not Detect); Parainfluenza Virus 1 Not Detected (Not Detect); Parainfluenza Virus 2 Not Detected (Not Detect); Parainfluenza Virus 3 Not Detected (Not Detect); Parainfluenza Virus 4 Not Detected (Not Detect); Respiratory Syncytial Virus Not Detected (Not Detect)
[2017-12-03] MEDS: Ipratropium/Albuterol Neb 3 ML IH SCH ×5 (03:26→20:40)
[2017-12-03 04:33] LABS: Calcium 9.6 mg/dL (8.6-10.3); Potassium 4.1 mEq/L (3.5-5.1)
[2017-12-03 04:59] LABS: Basophils % 0.1 %; Eosinophils % 0.1 %; Hematocrit 37.4 % (35.3-44.9); Hemoglobin 11.2 g/dL (11.5-15.4); Immature Granulocytes % 1.6 % (0-4); Lymphocytes # 0.5 K/mcL (0.6-4.6); Lymphocytes % 4.9 %; Mean Corpuscular HGB Conc 29.9 g/dL (31.6-35.5); Mean Corpuscular Hemoglobin 27.5 pg (28.0-33.3); Mean Corpuscular Volume 91.7 fL (83.0-100.0); Mean Platelet Volume 10.4 fL (9.4-12.4); Monocytes # 0.4 K/mcL (0.0-1.3); Monocytes % 4.5 %; Neutrophils # 8.4 K/mcL (1.6-8.9); Nucleated Red Blood Cells 0.4 /100 WBC (0); Platelet Count 207 K/mcL (140-400); Red Blood Count 4.08 M/mcL (3.82-4.97); Red Cell Distribution Width 15.9 % (11.5-14.5); Segmented Neutrophils % 88.8 %
[2017-12-03] MEDS: predniSONE 20 MG TABLET PO SCH (09:49)
[2017-12-03] MEDS: cefTRIAXone 1,000 MG in Water for inj. (sterile) 20 ML 10 ML IVP SCH (09:49)
[2017-12-03] MEDS: Insulin LISPRO 300 UNITS/3 ML VIAL SQ SCH ×4 (09:50→22:22)
[2017-12-03] MEDS: Aspirin 81 MG TAB.CHEW PO SCH (09:59)
[2017-12-03] MEDS: Metoprolol XL (24 HR) Succ 50 MG TAB.ER.24H PO SCH (10:13)
[2017-12-03] MEDS: Furosemide 40 MG/4 ML VIAL IVP SCH (12:20)
--- NOTE | 2017-12-03 17:36 | Internal Med Progress Note ---
Date of Encounter: 12/03/17 Time of Encounter: 17:34 - Assessment and plan (1) Dyspnea Current Visit: Yes Status: Acute Assessment and plan: Patient is currently on 2-3 L nasal cannula. She does have home oxygen that she wears at 2 L. Qualifiers: Dyspnea type: dyspnea on exertion Qualified Code(s): R06.09 - Other forms of dyspnea (2) UTI (urinary tract infection) Current Visit: Yes Status: Acute Assessment and plan: Urine culture positive for gram-negative rods on preliminary reading Patient is on Rocephin Qualifiers: Urinary tract infection type: site unspecified Hematuria presence: without hematuria Qualified Code(s): N39.0 - Urinary tract infection, site not specified (3) CAD (coronary artery disease) Current Visit: Yes Status: Chronic Assessment and plan: Patient has history of CAD. She is on aspirin and Plavix and beta pankaj which will be continued. She will let heart catheter in May 2017 which showed triple-vessel CAD. She status post CABG was 202 pain bypass grafts. 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 transplanted heart: [place] heart Associated angina: without angina Qualified Code(s): I25.10 - Atherosclerotic heart disease of [place] coronary artery without angina pectoris (4) HTN (hypertension) Current Visit: Yes Status: Chronic Assessment and plan: Blood pressure is well controlled continue home medications. Hydralazine 10 mg IV push every 6 hours as needed for systolic blood pressure greater than 180 Qualifiers: Hypertension type: essential hypertension Qualified Code(s): I10 - Essential (primary) hypertension (5) Type 2 diabetes mellitus Current Visit: Yes Status: Chronic Assessment and plan: Continue sliding scale insulin with Accu-Cheks before meals and at bedtime. Diabetic diet Hemoglobin A1c 6.5 in August 2017 Qualifiers: Diabetes mellitus complication status: with kidney complications Diabetes mellitus complication detail: with chronic kidney disease Diabetes mellitus manager mortgage insulin use: unspecified group home insulin use status Chronic kidney disease stage: stage 3 (moderate) Qualified Code(s): E11.22 - Type 2 diabetes mellitus with diabetic chronic kidney disease; N18.3 - Chronic kidney disease, stage 3 (moderate); N18.3 - Chronic kidney disease, stage 3 (moderate) (6) DVT prophylaxis Current Visit: Yes Status: Acute (7) Acute on chronic diastolic heart failure Current Visit: Yes Status: Acute Assessment and plan: Mild acute exacerbation of diastolic CHF Patient has trace peripheral edema. Chest x-ray was negative for acute processes. CT of the Abdomen and pelvis showed chronic right pleural effusion and bibasilar atelectasis. Patient is on home O2 at 2 L, continue O2 to maintain sats greater than 92%. Continue home dose of Lasix. Patient had an echocardiogram in August 2017 that revealed preserved ejection fracture, indeterminate LV diastolic function, bioprosthetic mitral valve and mild TR. (8) Diarrhea Current Visit: Yes Status: Acute Assessment and plan: Patient reported approximate 2-1/2 week history of diarrhea with no abdominal cramping or discomfort. She stated 12-15 episodes daily with no hematochezia. Patient had recent hospitalizations in July and August with pneumonia treated by IV antibiotics. GI panel is ordered Stool for occult blood is negative nothing was detected on the stool screen Qualifiers: Diarrhea type: unspecified type Qualified Code(s): R19.7 - Diarrhea, unspecified (9) History of mitral valve replacement with bioprosthetic valve Current Visit: Yes Status: Chronic Assessment and plan: Patient is on aspirin and Plavix which will be continued (10) COPD exacerbation Current Visit: Yes Status: Acute Assessment and plan: Patient positive for entero/Rhino virus on serology panel Patient is continues to wheeze and cough. Continue prednisone and duo nebs. She will need 2 weeks of prednisone taper on discharge. Tessalon pearls for cough. Patient reports she follows up with [facility] and was told she did not have COPD so she may have asthmatic variant Acute exacerbation complicated by CHF. She was hospitalized with pneumonia twice since July 2017. She returned to her baseline started having shortness of breath and nonproductive cough approximately 4 days before admission. Chest x-ray and CT were negative for acute processes although there was a chronic right pleural effusion on CT. Patient had no white count or fever, no fevers at home (11) Acute on chronic renal failure Current Visit: No Status: Chronic Assessment and plan: Chronic renal disease stage III. 3 serum creatinine was 1.65 with GFR of 30 on admission. Renal function slightly worsened patient's normal baseline. Avoid nephrotoxins Likely related to chronic diarrhea and dehydration. Encourage oral intake and monitor her labs Qualifiers: Acute renal failure type: unspecified Chronic kidney disease stage: stage 3 (moderate) Qualified Code(s): N17.9 - Acute kidney failure, unspecified; N18.3 - Chronic kidney disease, stage 3 (moderate); N18.3 - Chronic kidney disease, stage 3 (moderate) - Subjective Interval history: Patient is sitting up on O2 at 2 L. Her is at the bedside. She is feeling "swollen hands and her belly". She states her breathing is a little better but she still wheezing and coughing. She denies any chest pain, fever, chills, abdominal pain or discomfort. She is complaining of some loose stools which she describes as liquid with flax in them. There is a stool pending. Discussed how long she may wheeze and cough with RSV and explained what that was and they have no further questions. - Constitutional Vitals: Temp Pulse Resp BP Pulse Ox 99.4 F 79 16 125/72 95 12/03/17 16:37 12/03/17 16:37 12/03/17 16:37 12/03/17 16:37 12/03/17 16:37 General appearance: Present: cooperative, A&O X 3, pleasant, no acute distress, obese, answers questions appropriately - Head Head exam: Present: atraumatic, normocephalic - Eye Eye exam: Present: PERRL, conjuntiva pink, sclera anicteric Pupils: Present: PERRL - Neck Neck exam general surgery: Present: supple, trachea midline. Absent: lymphadenopathy - Respiratory Respiratory exam: Present: decreased breath sounds, wheezes. Absent: accessory muscle use, rales, rhonchi Additional comments: cough nonproductive - Cardiovascular Cardiovascular exam: Present: RRR, +S1, +S2. Absent: diastolic murmur, gallop, rubs, systolic murmur - GI/Abdominal GI/Abdominal exam: Present: normal bowel sounds, soft, no peritoneal signs. Absent: distended, tenderness - Extremities Exam Extremities exam: Present: pedal edema, warm, radial pulses palpable and symmetrical. Absent: calf tenderness, cyanotic Additional comments: Hands are slightly edematous bilaterally - Neurological Exam Neurological exam: Present: CN II-XII intact, oriented X3, no focal deficits, strengths equal and symetr throughout. Absent: pronater drift, facial droop, speech deficit - Skin Skin exam: Present: dry, intact, normal color, warm Internal Medicine: Result - Labs CBC & Chem 7: 12/03/17 03:41 12/03/17 03:41 Labs: Short CBC 12/03/17 Range/Units 03:41 WBC 9.5 D (4.3-11.1) K/mcL Hgb 11.2 L (11.5-15.4) g/dL Hct 37.4 (35.3-44.9) % Plt Count 207 (140-400) K/mcL Neutrophils # 8.4 (1.6-8.9) K/mcL BMP 12/03/17 03:41 Sodium 139 Potassium 4.1 Chloride 109 H Carbon Dioxide 21 L BUN 33 H Creatinine 1.73 H Glucose 239 H Calcium 9.6 - ABG Interpretation ABG results: PT/INR, D-dimer PT 10.6 Seconds (9.4-12.1) 12/01/17 22:03 Consult Discharge Plan - Plan Referrals: Edgar Nguyen Jr, MD [Primary Care Provider] -
[2017-12-03] MEDS: Benzonatate 100 MG CAPSULE PO PRN (18:04)
--- NOTE | 2017-12-03 18:05 | Electrocardiograph Report ---
[place] [id number] Test Date: 2017-12-01 Pat Name: Delores Florez Department: 103 Room: 3B14 Gender: F Treatment Manager: REHAN : 1940 Requested By: Yoni Sanders Order Number: [id number] Reading MD: Colette Norman Measurements Intervals [place] Rate: 91 P: -82 FL: 147 QRS: 8 QRSD: 97 T: 42 QT: 395 QTc: 443 Interpretive Statements ECTOPIC ATRIAL RHYTHM MODERATE ST DEPRESSION [0.05+ mV ST DEPRESSION] Electronically Signed On 12-03-2017 18:03:44 EST by Colette Norman
[2017-12-04] MEDS: Ipratropium/Albuterol Neb 3 ML IH SCH ×3 (00:29→07:59)
[2017-12-04 04:58] LABS: Hematocrit 36.6 % (35.3-44.9); Hemoglobin 11.5 g/dL (11.5-15.4); Mean Corpuscular HGB Conc 31.4 g/dL (31.6-35.5); Mean Corpuscular Hemoglobin 27.7 pg (28.0-33.3); Mean Corpuscular Volume 88.2 fL (83.0-100.0); Platelet Count 247 K/mcL (140-400); Red Blood Count 4.15 M/mcL (3.82-4.97); Red Cell Distribution Width 15.9 % (11.5-14.5)
[2017-12-04 05:13] LABS: Calcium 9.7 mg/dL (8.6-10.3)
[2017-12-04] MEDS: Insulin LISPRO 300 UNITS/3 ML VIAL SQ SCH ×2 (10:14→12:23)
[2017-12-04] MEDS: Aspirin 81 MG TAB.CHEW PO SCH (10:16)
[2017-12-04] MEDS: Metoprolol XL (24 HR) Succ 50 MG TAB.ER.24H PO SCH (10:16)
[2017-12-04] MEDS: Furosemide 40 MG/4 ML VIAL IVP SCH (10:16)
[2017-12-04] MEDS: Benzonatate 100 MG CAPSULE PO PRN (10:16)
[2017-12-04] MEDS: predniSONE 20 MG TABLET PO SCH (10:16)
[2017-12-04] MEDS: cefTRIAXone 1,000 MG in Water for inj. (sterile) 20 ML 10 ML IVP SCH (10:16)
[2017-12-04 10:51] VITALS: BP 183/90
--- NOTE | 2017-12-04 12:48 | Discharge Summary ---
- NOTES TO OUTPATIENT PROVIDER Notes to Outpatient Provider: Patient has had some chronic diarrhea and no scheduled colonoscopy in many years. Will follow-up with GI as an outpatient. She will need to see pulmonary as an outpatient and about 4 weeks. Gram- negative rods in her urine will be treated. Orders not resulted at time of discharge: Pending orders 12/02/17 Culture,Urine [RM] Stat Date of Encounter: 12/04/17 Time of Encounter: 12:43 - Discharge Diagnosis (1) UTI (urinary tract infection) Priority: Primary Status: Acute Comments: A she will be discharged on antibiotic with prescription provided Qualifiers: Urinary tract infection type: site unspecified Hematuria presence: without hematuria Qualified Code(s): N39.0 - Urinary tract infection, site not specified (2) CAD (coronary artery disease) Priority: Primary Status: Chronic Comments: Patient with history of CAD she was on aspirin and Plavix and beta pankaj which are continued. She had a cardiac catheterization in May 2017 which showed triple-vessel CAD. She is status post CABG. She is pain-free. Qualifiers: Coronary Disease-Associated Artery/Lesion type: [place] artery [place] vs. transplanted heart: [place] heart Associated angina: without angina Qualified Code(s): I25.10 - Atherosclerotic heart disease of [place] coronary artery without angina pectoris (3) HTN (hypertension) Priority: Primary Status: Chronic Comments: Well controlled and will continue home medications Qualifiers: Hypertension type: essential hypertension Qualified Code(s): I10 - Essential (primary) hypertension (4) Type 2 diabetes mellitus Priority: Primary Status: Chronic Comments: Resume home medication regime and diabetic diet at home Qualifiers: Diabetes mellitus complication status: with kidney complications Diabetes mellitus complication detail: with chronic kidney disease Diabetes mellitus jail insulin use: unspecified jail insulin use status Chronic kidney disease stage: stage 3 (moderate) Qualified Code(s): E11.22 - Type 2 diabetes mellitus with diabetic chronic kidney disease; N18.3 - Chronic kidney disease, stage 3 (moderate); N18.3 - Chronic kidney disease, stage 3 (moderate) (5) Acute on chronic diastolic heart failure Priority: Primary Status: Acute Comments: Marquise acute exacerbation of diastolic CHF. Her edema is improved. Her abdominal wall edema is improved. Her chest x-ray was negative for acute processes. CT the abdomen and pelvis revealed a chronic right pleural effusion and bibasilar atelectasis. She will continue her home dose of Lasix as before admission. Echocardiogram from August 2017 revealed preserved EF, indeterminate LV diastolic function and bioprosthetic mitral valve with mild TR (6) Diarrhea Priority: Primary Status: Chronic Comments: This is rather chronic for her. She has not had a colonoscopy for many years. Recommend she follow up with GI as an outpatient for evaluation of the diarrhea as well as arrangements for a colonoscopy. Qualifiers: Diarrhea type: unspecified type Qualified Code(s): R19.7 - Diarrhea, unspecified (7) History of mitral valve replacement with bioprosthetic valve Priority: Primary Status: Chronic (8) COPD exacerbation Priority: Primary Status: Acute Comments: Patient was discharged on a prednisone taper as well as Tessalon Perle and duo nebs. She does have a home nebulizer and home oxygen. She will follow-up with her primary care physician as well as pulmonary. (9) Acute on chronic renal failure Priority: Primary Status: Chronic Comments: Chronic renal disease stage III. Her serum creatinine was 1.65 with GFR of 30 on admission, patient's renal function was slightly worsened from her baseline with IV Lasix use. Avoid nephrotoxins. She also had some fluid loss secondary to her chronic diarrhea and dehydration. Qualifiers: Acute renal failure type: unspecified Chronic kidney disease stage: stage 3 (moderate) Qualified Code(s): N17.9 - Acute kidney failure, unspecified; N18.3 - Chronic kidney disease, stage 3 (moderate); N18.3 - Chronic kidney disease, stage 3 (moderate) Hospital course: Ms. Florez is a 77 year old female with past medical history of CAD, stage III chronic kidney disease, hypertension, diabetes, CHF, and depression. She is also having some issues with chronic diarrhea. She had hospitalizations in JulyAugust 2017 for pneumonia. Her stool culture was negative for C. difficile. She is now back to her baseline O2 needs. Her edema is improved. Her breathing is better. She feels ready to go home. We discussed her diarrhea and need for colonoscopy. She will follow up with GI as an outpatient for evaluation of the diarrhea as well as need for colonoscopy. She will follow -up with pulmonology as directed. She will also follow-up with her PCP. Please see the assessment and plan for further details of this admission Discharge discussed with: patient, family, nurse, social work - Time Spent with Patient Total time spent providing and/or coordinating discharge services: Less than 30 minutes - Discharge Medications Prescriptions: Albuterol Neb [Proventil Neb] 2.5 mg IH Q6H PRN 30 Days #120 inhsol PRN Reason: Shortness Of Breath/Wheezing Benzonatate [Tessalon] 200 mg PO TID PRN 7 Days #21 capsule PRN Reason: Cough predniSONE [PredniSONE] 10 mg PO DAILY #30 tablet Sulfamethoxazole/Trimeth DS [Bactrim DS] 1 each PO BID 5 Days #10 tablet Home Medications: Aspirin 81 mg PO DAILY 02/07/16 [History] Metoprolol XL (24 HR) Succ [Toprol Xl] 100 mg PO DAILY 08/21/16 [History] Furosemide [Lasix] 40 mg PO DAILY PRN 10/01/16 [History] Insulin LISPRO [HumaLOG] 2 - 12 units SQ TIDAC 11/11/16 [History] Clopidogrel [Plavix] 75 mg PO DAILY 07/16/17 [History] Sertraline [Zoloft] 50 mg PO DAILY 09/21/17 [History] Promethazine [Phenergan] 12.5 mg PO Q8HR PRN #21 tablet 09/25/17 [Rx] Insulin Glargine,Hum.rec.anlog [Lantus Solostar] 25 unit SQ DAILY PRN 12/02/17 [ History] Albuterol Neb [Proventil Neb] 2.5 mg IH Q6H PRN 30 Days #120 inhsol 12/04/17 [Rx ] Benzonatate [Tessalon] 200 mg PO TID PRN 7 Days #21 capsule 12/04/17 [Rx] Sulfamethoxazole/Trimeth DS [Bactrim DS] 1 each PO BID 5 Days #10 tablet [Rx] predniSONE [PredniSONE] 10 mg PO DAILY #30 tablet 12/04/17 [Rx] Allergies/Adverse Reactions: 3 Allergy/AdvReac Type Severity Reaction Status Date / Time acetaminophen AdvReac Nausea Verified 07/18/17 07:22 [From [place]-N] codeine AdvReac See Verified 12/02/17 10:01 Comments morphine AdvReac Nausea Verified 07/18/17 07:22 propoxyphene AdvReac Nausea Verified 07/18/17 07:22 [From Darvocet-N] Date of admission: 12/02/17 02:28 Primary care physician: Edgar Nguyen Jr, MD Discharging clinician: Elizabeth Vazquez Anticipated date of discharge: 12/04/17 - Constitutional Vitals: Temp Pulse Resp BP Pulse Ox 99 F 75 16 183/90 99 12/04/17 10:50 12/04/17 10:50 12/04/17 10:50 12/04/17 10:50 12/04/17 10:50 General appearance: Present: cooperative, A&O X 3, pleasant, no acute distress, obese, answers questions appropriately - Head Head exam: Present: atraumatic, normocephalic - Eye Eye exam: Present: PERRL, conjuntiva pink, sclera anicteric Pupils: Present: PERRL - Neck Neck exam general surgery: Present: supple, trachea midline. Absent: lymphadenopathy - Respiratory Respiratory exam: Present: CTAB. Absent: accessory muscle use, rales, rhonchi, wheezes - Cardiovascular Cardiovascular exam: Present: RRR, +S1, +S2. Absent: diastolic murmur, gallop, rubs, systolic murmur - GI/Abdominal GI/Abdominal exam: Present: normal bowel sounds, soft, no peritoneal signs. Absent: distended, tenderness - Extremities Exam Extremities exam: Present: pedal edema, warm, radial pulses palpable and symmetrical. Absent: calf tenderness, cyanotic Additional comments: Trace pedal edema and last abdominal wall edema - Neurological Exam Neurological exam: Present: CN II-XII intact, oriented X3, no focal deficits. Absent: pronater drift, facial droop, speech deficit - Skin Skin exam: Present: dry, intact, normal color, warm - Patient Status Disposition: Home, Self-Care Condition: Good Overall status at discharge: patient is progressing back to baseline - Discharge Instructions Follow Up With: Edgar Nguyen Jr, MD [Primary Care Provider] - 12/10/17 10:00 am Derrick Honeycutt MD [Partnered Physician] - 03/24/18 1:45 pm Indra Bocanegra MD [Partnered Physician] - 02/18/18 9:30 am - Diet and Activity Activity: increase activity as tolerated Diet: advance to your usual diet
== END 2017-12-04 15:28 | disposition home or self-care (01) ==
LOC: EMEROO 21:13 → 3BNU 21:13
PROVIDERS: ADMIT Registered Nurse; ATTEND Registered Nurse

== ENCOUNTER 2019-01-27 07:11 | Inpatient (IN) ==
[2019-01-27] MEDS ORDERED: Ipratropium/Albuterol Neb 3 ML IH ONE (07:24)
--- NOTE | 2019-01-27 07:30 | Emergency Department Note ---
Disposition Clinical Impression: Acute exacerbation of chronic obstructive airways disease, Acute dyspnea Disposition: Admitted As Inpatient Condition: Good Referrals: Edgar Nguyen Jr, MD [Primary Care Provider] - Forms: ED Satisfaction Letter Time of Disposition: 09:17 General Adult HPI - General Chief complaint: ED Shortness of Breath/Dyspnea Stated complaint: OG Time Seen by Provider: 01/27/19 07:18 - History of Present Illness HPI Narrative: Patient 78-year-old female presents to emergency department with chief complaint of shortness of breath. The patient states that for the last several days she has been having increasing shortness of breath in the point that last night she was unable to sleep. He states that it feels full in her chest and her upper abdomen. He states that she has been coughing and has had a productive sputum with this as well. Patient reports that she feels extremely uncomfortable with this as well. The patient denies fever. She reports that she occasionally has some intermittent chest discomfort with this but denies specific chest pain. Patient reports she has prior history 2 open heart surgeries including a bypass and valve replacement. She denies history of congestive heart failure or COPD - Related Data Home Medications Medication Instructions Recorded Confirmed Aspirin 81 mg PO DAILY 02/07/16 01/27/19 Metoprolol XL (24 HR) Succ [Toprol 100 mg PO DAILY 08/21/16 01/27/19 Xl] Furosemide [Lasix] 40 mg PO DAILY PRN 10/01/16 01/27/19 Insulin LISPRO [HumaLOG] 2 - 12 units SQ TIDAC 11/11/16 01/27/19 Clopidogrel [Plavix] 75 mg PO DAILY 07/16/17 01/27/19 Sertraline [Zoloft] 50 mg PO DAILY 09/21/17 01/27/19 Insulin Glargine,Hum.rec.anlog 25 unit SQ DAILY PRN 12/02/17 01/27/19 [Lantus Solostar] Allergies Allergy/AdvReac Type Severity Reaction Status Date / Time acetaminophen AdvReac Nausea Verified 01/27/19 07:29 [From Darvocet-N] codeine AdvReac See Verified 01/27/19 07:29 Comments morphine AdvReac Nausea Verified 01/27/19 07:29 propoxyphene AdvReac Nausea Verified 01/27/19 07:29 [From Darvocet-N] All systems ED: reviewed and negative except as stated. Past Medical History - Past Medical History Attestation: Yes The following information was validated with the patient. Medical history: Reports: aortic aneurysm, arthritis, coronary artery disease, diabetes, myocardial infarction, renal disease, other Surgical history: Reports: appendectomy, cholecystectomy, colectomy, coronary bypass (CABG), heart valve replacement, hysterectomy, knee replacement, other, pacemaker Psychiatric history: Reports: anxiety, depression - Social History Smoking Status: Never smoker Smokeless Tobacco Status: No Alcohol use: Reports: none Drug use: Reports: none Physical Exam General: Conversant and pleasant interactive and nontoxic. Head: Normocephalic/atraumatic Eyes:PERRLA, EOMI, no conjunctivitis Nares: Without d/c. Ears: No erythema or d/c noted. Oralpharnyx: P&MMM noted, Neck: Supple, no JVD or PLAYGROUND ATTENDANT noted. Cardovascular: regular rate and rhythm without murmur, brisk capillary refill, no peripheral edema. Lungs: Scattered wheezes present bilaterally, non-labored Abd: Soft nontender, Non Distended, no guarding, no rebound. : Defered Extremities: moves all extremities equally Neuro: AOx3, no obvious gross neuro deficit Psych: Normal Affect Derm: No rash noted Course Course Narrative: Patient received Solu-Medrol and DuoNeb to the ER. Patient is feeling much better at this time but still was moderately short of breath. At this time the patient does not require BiPAP the case was discussed with the hospitalist and the patient will be admitted to the hospitalist service Vital Signs Temperature 98.4 F 01/27/19 07:18 Pulse Rate 98 01/27/19 07:18 Respiratory Rate 24 01/27/19 07:18 Blood Pressure 193/89 01/27/19 07:18 O2 Sat by Pulse Oximetry 97 01/27/19 07:18 Temperature 98.4 F 01/27/19 07:18 Pulse Rate 98 01/27/19 09:07 Respiratory Rate 24 01/27/19 09:07 Blood Pressure 138/67 01/27/19 09:07 O2 Sat by Pulse Oximetry 96 01/27/19 09:07 Oxygen Delivery Oxygen Delivery Nasal Cannula Medical Decision Making - Lab Data Result diagrams: 01/27/19 07:35 01/27/19 07:35 Lab Results 01/27/19 01/27/19 01/27/19 Range/Units 07:35 07:35 07:35 WBC 6.8 (4.3-11.1) K/mcL RBC 4.99 H (3.82-4.97) M/mcL Hgb 14.5 (11.5-15.4) g/dL Hct 46.6 H (35.3-44.9) % MCV 93.4 (83.0-100.0) fL MCH 29.1 (28.0-33.3) pg MCHC 31.1 L (31.6-35.5) g/dL RDW 14.6 H (11.5-14.5) % Plt Count 195 (140-400) K/mcL MPV 10.2 (9.4-12.4) fL Immature Gran % 0.3 (0-4) % Seg Neutrophils % 74.9 % Lymphocytes % 12.5 % Monocytes % 6.5 % Eosinophils % 5.1 % Basophils % 0.7 % Neutrophils # 5.1 (1.6-8.9) K/mcL Lymphocytes # 0.9 (0.6-4.6) K/mcL Monocytes # 0.4 (0.0-1.3) K/mcL Eosinophils # 0.4 (0.0-0.6) K/mcL Basophils # 0.1 (0.0-0.2) K/mcL PT 11.1 (9.4-12.1) Seconds INR 1.0 APTT 29.4 (26.0-36.0) Seconds Sodium 138 (136-145) mEq/L Potassium 4.7 (3.5-5.1) mEq/L Chloride 102 (98-107) mEq/L Carbon Dioxide 24 (23-29) mEq/L BUN 24 H (8-23) mg/dL Creatinine 1.59 H (0.60-1.20) mg/dL Est GFR ( Amer) 38 L (> 60) Est GFR (Non-Af Amer) 31 L (> 60) BUN/Creatinine Ratio 15 (6-26) Glucose 339 H (70-105) mg/dL Calculated Osmolality 303 H (280-300) Lactic Acid (0.5-2.2) mmol/L Calcium 9.5 (8.6-10.3) mg/dL Total Bilirubin 0.6 (0.3-1.0) mg/dL Direct Bilirubin 0.1 (0.0-0.2) mg/dL Indirect Bilirubin 0.5 (0.0-1.2) mg/dL AST 16 (13-39) Units/L ALT 11 (7-52) Units/L Alkaline Phosphatase 92 (34-104) Units/L Troponin I < 0.03 (< 0.04) ng/mL B-Natriuretic Peptide (Less than 100) pg/mL Serum Total Protein 7.0 (6.4-8.9) g/dL Albumin 4.5 (3.5-5.7) g/dL Globulin 2.5 (2.4-3.5) g/dL Albumin/Globulin Ratio 1.8 (1.1-2.2) 01/27/19 01/27/19 Range/Units 07:35 08:27 WBC (4.3-11.1) K/mcL RBC (3.82-4.97) M/mcL Hgb (11.5-15.4) g/dL Hct (35.3-44.9) % MCV (83.0-100.0) fL MCH (28.0-33.3) pg MCHC (31.6-35.5) g/dL RDW (11.5-14.5) % Plt Count (140-400) K/mcL MPV (9.4-12.4) fL Immature Gran % (0-4) % Seg Neutrophils % % Lymphocytes % % Monocytes % % Eosinophils % % Basophils % % Neutrophils # (1.6-8.9) K/mcL Lymphocytes # (0.6-4.6) K/mcL Monocytes # (0.0-1.3) K/mcL Eosinophils # (0.0-0.6) K/mcL Basophils # (0.0-0.2) K/mcL PT (9.4-12.1) Seconds INR APTT (26.0-36.0) Seconds Sodium (136-145) mEq/L Potassium (3.5-5.1) mEq/L Chloride (98-107) mEq/L Carbon Dioxide (23-29) mEq/L BUN (8-23) mg/dL Creatinine (0.60-1.20) mg/dL Est GFR ( Amer) (> 60) Est GFR (Non-Af Amer) (> 60) BUN/Creatinine Ratio (6-26) Glucose (70-105) mg/dL Calculated Osmolality (280-300) Lactic Acid 2.7 H (0.5-2.2) mmol/L Calcium (8.6-10.3) mg/dL Total Bilirubin (0.3-1.0) mg/dL Direct Bilirubin (0.0-0.2) mg/dL Indirect Bilirubin (0.0-1.2) mg/dL AST (13-39) Units/L ALT (7-52) Units/L Alkaline Phosphatase (34-104) Units/L Troponin I (< 0.04) ng/mL B-Natriuretic Peptide 92 (Less than 100) pg/mL Serum Total Protein (6.4-8.9) g/dL Albumin (3.5-5.7) g/dL Globulin (2.4-3.5) g/dL Albumin/Globulin Ratio (1.1-2.2)
[2019-01-27] MEDS ORDERED: methylPREDNISolone 125 MG/2 ML VIAL IVP ONE (07:32)
[2019-01-27] MEDS ORDERED: Ipratropium/Albuterol Neb 3 ML ONE (07:51)
[2019-01-27 08:00] LABS: Basophils # 0.1 K/mcL (0.0-0.2); Basophils % 0.7 %; Eosinophils # 0.4 K/mcL (0.0-0.6); Eosinophils % 5.1 %; Hematocrit 46.6 % (35.3-44.9); Hemoglobin 14.5 g/dL (11.5-15.4); Immature Granulocytes % 0.3 % (0-4); Lymphocytes # 0.9 K/mcL (0.6-4.6); Lymphocytes % 12.5 %; Mean Corpuscular HGB Conc 31.1 g/dL (31.6-35.5); Mean Corpuscular Hemoglobin 29.1 pg (28.0-33.3); Mean Corpuscular Volume 93.4 fL (83.0-100.0); Mean Platelet Volume 10.2 fL (9.4-12.4); Monocytes # 0.4 K/mcL (0.0-1.3); Monocytes % 6.5 %; Neutrophils # 5.1 K/mcL (1.6-8.9); Platelet Count 195 K/mcL (140-400); Red Blood Count 4.99 M/mcL (3.82-4.97); Red Cell Distribution Width 14.6 % (11.5-14.5); Segmented Neutrophils % 74.9 %
[2019-01-27 08:12] LABS: Prothrombin Time 11.1 Seconds (9.4-12.1)
[2019-01-27 08:14] LABS: Activated Partial Thrombo Time 29.4 Seconds (26.0-36.0)
[2019-01-27] MEDS ORDERED: Ondansetron 4 MG/2 ML VIAL IVP ONE (08:19)
[2019-01-27 08:23] LABS: Alanine Aminotransferase 11 Units/L (7-52); Albumin 4.5 g/dL (3.5-5.7); Albumin/Globulin Ratio 1.8 (1.1-2.2); Alkaline Phosphatase 92 Units/L (34-104); Aspartate Amino Transferase 16 Units/L (13-39); BUN/Creatinine Ratio 15 (6-26); Bilirubin,Direct 0.1 mg/dL (0.0-0.2); Bilirubin,Indirect 0.5 mg/dL (0.0-1.2); Bilirubin,Total 0.6 mg/dL (0.3-1.0); Blood Urea Nitrogen 24 mg/dL (8-23); Calcium 9.5 mg/dL (8.6-10.3); Carbon Dioxide 24 mEq/L (23-29); Chloride 102 mEq/L (98-107); Globulin 2.5 g/dL (2.4-3.5); Glucose 339 mg/dL (70-105); Osmolality,Calculated 303 (280-300); Potassium 4.7 mEq/L (3.5-5.1); Sodium 138 mEq/L (136-145); Troponin I < 0.03 ng/mL (< 0.04); eGFR For Non-African Americans 31 (> 60)
[2019-01-27] MEDS ORDERED: Naloxone 0.4 MG/ML INJ IVP PRN (09:52)
[2019-01-27] MEDS ORDERED: *HR* Dextrose 50 % in Water (Syg) 50 ML SYRINGE IVP PRN (09:58)
[2019-01-27] MEDS ORDERED: D5% in Water 1,000 ML IVC PRN (09:58)
[2019-01-27] MEDS ORDERED: Dextrose Gel 15 GM/37.5 ML TUBE PO PRN ×2 (09:58)
[2019-01-27] MEDS ORDERED: Furosemide 40 MG/4 ML VIAL IVP SCH (10:00)
[2019-01-27] MEDS: Aspirin 81 MG TAB.CHEW PO SCH (10:52)
--- NOTE | 2019-01-27 11:14 | Internal Med History&Physical ---
Date of Encounter: 01/27/19 Time of Encounter: 11:00 Internal Medicine - H&P: HPI Chief complaint: Shortness of breath, coughing and wheezing for a week History of present illness: Ms. Florez is a 78 year old female with pmh history COPD on 3L of oxygen , diastolic CHF, diabetes presenting with complaints of coughing and shortness of breath of 1 week duration. Patient denies any known cardiac or lung diseases but previous discharge summaries document COPD. Patient notes she has had sudden onset shortness of breath about a week ago which has been getting progressively worse. She complains that she initially only had shortness of breath but has had a worsening cough productive of [place] phlegm and wheezing. She admits to positive chills, but denies any fevers or any other acute symptoms. She denies any chest pain. She denies any swelling as well. She takes lasix at home but had no relief. She came to the ER because symptoms were getting worse. In the ER, she got one dose of steroids and nebs. CXR shows vascular congestion. She is being admitted for further management Past Med Surg Social Fam HX - Past Medical History Medical history: aortic aneurysm, arthritis, CHF, COPD, coronary artery disease, diabetes, myocardial infarction, renal disease, other Additional medical history: CAD Psychiatric history: anxiety, depression - Past Surgical History Surgical History: appendectomy, cholecystectomy, colectomy, coronary bypass (CABG), heart valve replacement, hysterectomy, knee replacement, other, pace maker Additional surgical history: CABG 2007, 2008 heart valve, 2009 pacemaker, 9 inches of bowel removed - Social History Smoking Status: Never smoker Smokeless Tobacco Status: No Alcohol use: none Drug use: none - Family History Father Living Status: Hx Family Cardiac Disorders: Yes (aortic aneurysm) Mother Living Status: Hx Family Cardiac Disorders: Yes Hx Family Respiratory Disorders: Yes (COPD) Hx Family Cancer: Yes (Colon.) Hx Family GI Disorders: No Hx Family Endocrine Disorder: No Hx Family Neuromuscular Disorders: No Hx Family Neurologic Disorders: No Hx Family HEENT Disorders: No Hx Family Autoimmune Disorders: No Internal Medicine - H&P: Meds Aspirin 81 mg PO DAILY 02/07/16 [History] Metoprolol XL (24 HR) Succ [Toprol Xl] 100 mg PO DAILY 08/21/16 [History] Furosemide [Lasix] 40 mg PO DAILY PRN 10/01/16 [History] Insulin LISPRO [HumaLOG] 2 - 12 units SQ TIDAC 11/11/16 [History] Clopidogrel [Plavix] 75 mg PO DAILY 07/16/17 [History] Sertraline [Zoloft] 50 mg PO DAILY 09/21/17 [History] Insulin Glargine,Hum.rec.anlog [Lantus Solostar] 25 unit SQ DAILY PRN 12/02/17 [History] Allergy/AdvReac Type Severity Reaction Status Date / Time acetaminophen AdvReac Nausea Verified 01/27/19 07:29 [From Darvocet-N] codeine AdvReac See Verified 01/27/19 07:29 Comments morphine AdvReac Nausea Verified 01/27/19 07:29 propoxyphene AdvReac Nausea Verified 01/27/19 07:29 [From Darvocet-N] All Systems PM: A 10-system review of systems was performed and is negative for pertinent findings except as documented above in the HPI. - Cardiovascular Cardiovascular ROS IM: dyspnea, dyspnea on exertion - Respiratory Respiratory: cough, dyspnea, wheezing, excessive phlegm production, change in phlegm color - Constitutional Vitals: Temp Pulse Resp BP Pulse Ox 98.3 F 77 20 115/72 96 01/27/19 10:48 01/27/19 10:48 01/27/19 10:48 01/27/19 10:48 01/27/19 10:48 Exam: Moderate respiraory distress - Head Head exam: Present: atraumatic, normocephalic - Eye Eye exam: Present: PERRL, conjuntiva pink, sclera anicteric Pupils: Present: PERRL - Neck Neck exam general surgery: Present: supple, trachea midline. Absent: lymphadenopathy - Respiratory Respiratory exam: Present: prolonged expiratory phase, wheezes, tachypnea. Absent: accessory muscle use, rales, rhonchi - Cardiovascular Cardiovascular exam: Present: RRR, +S1, +S2. Absent: diastolic murmur, gallop, rubs, systolic murmur - GI/Abdominal GI/Abdominal exam: Present: normal bowel sounds, soft, no peritoneal signs. Absent: distended, tenderness - Extremities Exam Extremities exam: Present: warm, radial pulses palpable and symmetrical. Abs ent: calf tenderness, cyanotic, pedal edema - Neurological Exam Neurological exam: Present: CN II-XII intact, oriented X3, no focal deficits. Absent: pronater drift, facial droop, speech deficit - Skin Skin exam: Present: dry, intact Internal Med - H&P Results - Labs CBC & Chem 7: 01/27/19 07:35 01/27/19 07:35 Labs: Short CBC 01/27/19 Range/Units 07:35 WBC 6.8 (4.3-11.1) K/mcL Hgb 14.5 (11.5-15.4) g/dL Hct 46.6 H (35.3-44.9) % Plt Count 195 (140-400) K/mcL Neutrophils # 5.1 (1.6-8.9) K/mcL BMP 01/27/19 07:35 Sodium 138 Potassium 4.7 Chloride 102 Carbon Dioxide 24 BUN 24 H Creatinine 1.59 H Glucose 339 H Calcium 9.5 Cardiac Enzymes 01/27/19 Range/Units 07:35 Troponin I < 0.03 (< 0.04) ng/mL Liver Function 01/27/19 Range/Units 07:35 Total Bilirubin 0.6 (0.3-1.0) mg/dL Direct Bilirubin 0.1 (0.0-0.2) mg/dL AST 16 (13-39) Units/L ALT 11 (7-52) Units/L Alkaline Phosphatase 92 (34-104) Units/L Albumin 4.5 (3.5-5.7) g/dL - Impressions ITS Impressions Chest X-Ray 01/27/19 07:25 IMPRESSION: 1. Cardiomegaly with mild vascular congestion. D/ / Bill Nielsen MD / Bill Nielsen MD Interpreting Provider: Bill Nielsen MD - Assessment and Plan (1) Acute exacerbation of chronic obstructive airways disease Current Visit: Yes Status: Acute Assessment and plan: Pt comes n with shortness of breath and wheezing of 1 week duration. Says she's has required significantly more oxygen comparred to her baseline Will start on duonebs, IV steroids and antibiotics Obtain ABG. BIPAP as needed (2) Acute on chronic diastolic heart failure Current Visit: Yes Status: Acute Assessment and plan: Chest xray shws vascular congestion.No significant pedal edema Will start on daily lasix. diurese cautiously in light of impaired kidney function (3) Diabetes mellitus Current Visit: Yes Status: Acute Assessment and plan: Continue insulin and monitor fingersticks Qualifiers: Diabetes mellitus fdc insulin use: with fdc use Qualified Code(s): E11.9 - Type 2 diabetes mellitus without complications; Z79.4 - MCC (current) use of insulin (4) Chronic kidney disease (CKD) Current Visit: Yes Status: Acute Assessment and plan: CKD stage 3. Creatinine appears to be at baseline Qualifiers: Chronic kidney disease stage: stage 3 (moderate) Qualified Code(s): N18.3 - Chronic kidney disease, stage 3 (moderate) (5) DVT prophylaxis Current Visit: Yes Status: Acute Assessment and plan: Heparin sc - Time Spent With Patient Total time spent is greater than 50% in coordination of care (as documented) at patient's floor/unit and/or counseling patient:
[2019-01-27 11:29] LABS: Bilirubin,Urine Negative (Negative); Blood,Urine Trace (Negative); Clarity,Urine Cloudy (Clear); Color,Urine Yellow (Yellow); Glucose,Urine (UA) Normal (Normal); Ketones,Urine Negative (Negative); Leukocyte Esterase,Urine Large (Negative); Nitrite,Urine Negative (Negative); Protein,Urine 100 mg/dL (Neg-Trace); Specific Gravity,Urine 1.021 (1.010-1.025); Urobilinogen,Urine Normal (Normal)
[2019-01-27 11:30] LABS: Bacteria,Urine Many per hpf (None-Few); Hyaline Casts,Urine None Seen per lpf (None-Few); RBC,Urine 0-3 per hpf (0-3); Squamous Epithelial Cell,Urine Many per lpf (None-Few); WBC,Urine TNTC per hpf (0-3)
[2019-01-27] MEDS: Insulin LISPRO 300 UNITS/3 ML VIAL SQ SCH ×2 (11:33→17:23)
[2019-01-27] MEDS: Levofloxacin 750 MG/150 ML 750 MG/150 ML BAG IVPB SCH (11:33)
[2019-01-27] MEDS: Budesonide/Formoterol 160/4.5 1 PUFF INH IH SCH ×2 (11:48→19:56)
[2019-01-27] MEDS: Ipratropium/Albuterol Neb 3 ML IH SCH ×4 (11:51→23:53)
[2019-01-27 12:16] LABS: Estimated Average Glucose 180 mg/dl; Hemoglobin A1C 7.9 %
[2019-01-27 12:20] LABS: ABG Base Excess 0 mEq/L (-2 to 3); ABG HCO3 28 mEq/L (21-27); ABG Oxygen Saturation 67 % (95-98); ABG PCO2 57 mmHg (35-45); ABG PO2 39 mmHg (85-104); ABG TCO2 29 mEq/L (20-26)
[2019-01-27] MEDS: MethylPREDNISolone 40 MG/ML VIAL IVP SCH ×2 (16:13→23:22)
--- NOTE | 2019-01-27 16:24 | Electrocardiograph Report ---
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
[2019-01-27] MEDS ORDERED: Insulin DETEMIR 100 UNIT/ML X5UNITS SQ SCH (21:00)
[2019-01-28] MEDS: Ipratropium/Albuterol Neb 3 ML IH SCH ×6 (04:44→23:18)
[2019-01-28 06:07] LABS: Basophils % 0.1 %; Hemoglobin 13.2 g/dL (11.5-15.4); Immature Granulocytes % 0.5 % (0-4); Lymphocytes # 0.5 K/mcL (0.6-4.6); Lymphocytes % 5.3 %; Mean Corpuscular HGB Conc 30.7 g/dL (31.6-35.5); Mean Corpuscular Hemoglobin 28.5 pg (28.0-33.3); Mean Corpuscular Volume 92.9 fL (83.0-100.0); Mean Platelet Volume 10.1 fL (9.4-12.4); Monocytes # 0.3 K/mcL (0.0-1.3); Monocytes % 2.9 %; Neutrophils # 8.6 K/mcL (1.6-8.9); Platelet Count 184 K/mcL (140-400); Red Blood Count 4.63 M/mcL (3.82-4.97); Red Cell Distribution Width 14.6 % (11.5-14.5); Segmented Neutrophils % 91.2 %
[2019-01-28 06:27] LABS: Calcium 9.6 mg/dL (8.6-10.3); Phosphorous 3.9 mg/dL (2.7-4.5); Potassium 4.6 mEq/L (3.5-5.1)
[2019-01-28] MEDS: Budesonide/Formoterol 160/4.5 1 PUFF INH IH SCH ×2 (07:45→19:36)
[2019-01-28] MEDS: MethylPREDNISolone 40 MG/ML VIAL IVP SCH (08:19)
[2019-01-28] MEDS: Aspirin 81 MG TAB.CHEW PO SCH (08:19)
[2019-01-28] MEDS: Metoprolol XL (24 HR) Succ 50 MG TAB.ER.24H PO SCH (08:20)
[2019-01-28] MEDS: Insulin LISPRO 300 UNITS/3 ML VIAL SQ SCH ×3 (08:20→17:08)
[2019-01-28] MEDS ORDERED: Furosemide 40 MG/4 ML VIAL IVP SCH (09:00)
--- NOTE | 2019-01-28 09:14 | Internal Med Progress Note ---
<Mahin Alfaro - Last Filed: 01/28/19 12:27> Hospitalist Progress Note - Encounter Date of Encounter: 01/28/19 Time of Encounter: 10:00 - Exam Vitals: Temp Pulse Resp BP Pulse Ox 99.5 F 87 18 118/67 92 01/28/19 11:29 01/28/19 11:29 01/28/19 11:29 01/28/19 11:29 01/28/19 11:29 - Assessment and Plan (1) Acute exacerbation of chronic obstructive airways disease Current Visit: Yes Status: Acute (2) Elevated troponin Current Visit: Yes Status: Acute (3) Acute on chronic diastolic heart failure Current Visit: Yes Status: Acute (4) Chronic kidney disease (CKD) Current Visit: Yes Status: Acute (5) Diabetes mellitus Current Visit: Yes Status: Acute (6) DVT prophylaxis Current Visit: Yes Status: Acute - Time Spent with Patient Total time spent is greater than 50% in coordination of care (as documented) at patient's floor/unit and/or counseling patient: Internal Medicine: Result - Labs CBC & Chem 7: 01/28/19 05:32 01/28/19 05:32 Labs: Short CBC 01/28/19 Range/Units 05:32 WBC 9.4 (4.3-11.1) K/mcL Hgb 13.2 (11.5-15.4) g/dL Hct 43.0 (35.3-44.9) % Plt Count 184 (140-400) K/mcL Neutrophils # 8.6 (1.6-8.9) K/mcL BMP 01/28/19 05:32 Sodium 137 Potassium 4.6 Chloride 100 Carbon Dioxide 24 BUN 36 H Creatinine 1.97 H Glucose 319 H Calcium 9.6 Cardiac Enzymes 01/27/19 01/27/19 01/28/19 Range/Units 16:32 21:38 05:32 Troponin I < 0.03 0.06 H* 0.75 H* (< 0.04) ng/mL - ABG Interpretation ABG results: ABG ABG pH 7.30 pH Units (7.32-7.45) L 01/27/19 12:13 ABG pCO2 57 mmHg (35-45) H 01/27/19 12:13 ABG pO2 39 mmHg (85-104) L* 01/27/19 12:13 ABG O2 Saturation 67 % (95-98) L 01/27/19 12:13 PT/INR, D-dimer PT 11.1 Seconds (9.4-12.1) 01/27/19 07:35 Consult Discharge Plan - Plan Referrals: Edgar Nguyen Jr, MD [Primary Care Provider] - - Attending Attestation I saw evaluated and examined this patient and my medical decision-making was reviewed with the Resident Physician, Jodi Lo. I agree with the documented findings, disposition and treatment plan as described except to any changes set forth below. We independently had [id number] contact with the patient. Patient is awake and alert. Feels better compared to yesterday. Reports that her breathing has significantly improved. Denies any chest pain at this time. No palpitations. No nausea or vomiting. Denies any orthopnea. Denies history of having any swelling in her lower extremities. General: Patient is alert, mild distress, obese oriented x 3 ENT: Mucous membranes moist Respiratory: Bilateral end expiratory wheezing Cardiovascular: Regular rate and rhythm. s1 and s2 normal No clicks, rubs, gallops, or murmurs. No pedal edema Abdomen: Abdomen is soft, nontender. Bowel sounds are present Musculoskeletal: Spontaneously moving all extremities Skin: warm, dry, intact. Neuro: Alert oriented x 3 normal cranial nerves, no focal deficits Acute exacerbation of COPD: Continue bronchodilators. Stable steroids. O2 supplementation as needed. Elevated troponin: Consulted cardiology. Started IV heparin after confirming with vascular surgery. 2-D echocardiogram. Trend troponins. Telemetry monitoring. High risk for complications. Acute on chronic diastolic congestive heart failure: Patient received Lasix yesterday with good urine output. However creatinine worsened today. We will hold off on further Lasix use for now. Obtain 2-D echocardiogram. Diabetes mellitus type 2: Will add long-acting insulin dosage In the morning. Continue sliding scale coverage. Chronic kidney disease stage III: Monitor renal function closely. DVT prophylaxis: Patient is currently on IV heparin <Jodi Lo - Last Filed: 01/28/19 15:32> Hospitalist Progress Note - Encounter Date of Encounter: 01/28/19 Time of Encounter: 09:00 - Subjective Interval History: Ms. Florez is a 78 year old female with pmh history CABG x2 in 2007, mitral valve 2008, AAA repair in 2017, pacemaker, COPD on 3L of oxygen, diastolic CHF, diabetes, CKD 3 presenting with complaints of coughing and shortness of breath of 1 week duration. Chest x-ray showed mild vascular congestion. The patient was admitted and started on Levaquin and Solu-Medrol. Overnight her troponin increased from 0.06 to 0.75, cardiology was consulted and recommended heparin drip however wanted vascular surgery's opinion due to significant cardiac history prior to starting heparin drip. Today the patient stated that her shortness of breath has significantly improved and so has her cough. She is no longer coughing stuff up as much although she is still coughing. She denies fever, chills, chest pain, palpitations, abdominal pain. She has no complaints. She is asking when she might be able to go home. - Exam Vitals: Temp Pulse Resp BP Pulse Ox 98.3 F 84 18 127/68 94 01/28/19 06:57 01/28/19 06:57 01/28/19 07:44 01/28/19 06:57 01/28/19 07:44 Exam: Gen.: Vitals noted. No acute distress. AAOx3 HEENT: oropharynx clear, Normocephalic, atraumatic Neck: Supple. No adenopathy. Cardiac: RRR, click, +S1/S2 Pulmonary: CTA bilaterally, no wheezes, rales or rhonchi, equal chest expansion Abdomen: soft, nontender, Bowel sounds noted, no guarding Extremities: no BLE edema, nontender calf, no cyanosis or clubbing Neuro: A&Ox3, moves all extremities, no focal deficits Psych: Appropriate mood and behavior - Assessment and Plan (1) Acute exacerbation of chronic obstructive airways disease Current Visit: Yes Status: Acute Assessment and Plan: Patient with acute exacerbation of COPD. Patient reported increased cough with sputum production and shortness of breath for one week duration. She wears 2 L of oxygen chronically. -WBC WNL -afebrile, hemodynamically stable -Chest x-ray showing vascular congestion -ABG pH 7.3, CO2 57, 02 39- respiratory acidosis Plan -continue oral steroids, stopped IV steroids -continue Levaquin -continue supplemental oxygen -continue Symbicort and bronchodilators (2) NSTEMI (non-ST elevated myocardial infarction) Current Visit: Yes Status: Acute Assessment and Plan: NSTEMI -significant cardiac history with CABG x2 in 2007, mitral valve 2008, AAA repair in 2017, pacemaker -Troponin 0.06 > 0.75 > 1.2 -EKG showing NSR, with mild ST depression and anterior lateral leads, no T wave changes -TTE 08/2017: LVEF 55%. History of bioprosthetic mitral valve replacement. Normal seated bioprosthetic valve without evidence for stenosis. There is trace mitral valve regurgitation. Mild TR. Mild phtn. -[facility]: Triple vessel coronary artery disease. S/P CABG 2 of 2 patent bypass grafts. EF 65%. 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 There is a 50% stenosis in the Proximal Circumflex. There is a 40% instent restenosis in the Mid Circumflex. -patient denies chest pain Plan -cardiology consulted and following, recommended heparin drip and left heart catheterization once renal function improves -continue aspirin, Plavix, beta pankaj. -Echocardiogram pending -Statin added -will continue to monitor (3) Acute kidney failure Current Visit: Yes Status: Acute Assessment and Plan: Acute acute kidney injury superimposed on chronic kidney disease -this is likely prerenal secondary to Lasix and dehydration -History of chronic kidney disease stage III. Baseline creatinine 1.2-1.6 -creatinine 1.97 (1.59 yesterday) -appropriate urine output Plan -nephrology consulted due to elevated creatinine and CKD with the perspective [facility] -hold Lasix -continue renal protective strategy including renal dose medications and avoid nephrotoxic agents -monitor serum creatinine -monitor I&O (4) Acute on chronic diastolic heart failure Current Visit: Yes Status: Acute Assessment and Plan: Acute on chronic diastolic heart failure. -Unsure if this is the etiology, well monitor -Chest x-ray showed vascular congestion -BNP 92 Plan -patient received a dose of Lasix however kidney function worsened. Will hold diuretics for now. -Will monitor volume status and I&O -will diuresis able (5) Chronic kidney disease (CKD) Current Visit: Yes Status: Acute Assessment and Plan: History of chronic kidney disease stage III. Baseline creatinine 1.2-1.6 -plan as above (6) Diabetes mellitus Current Visit: Yes Status: Acute Assessment and Plan: History of insulin-dependent diabetes. -Glucose elevated -Continue Levemir 35 units -continue medium dose sliding scale insulin -diabetic diet -Accu checks (7) DVT prophylaxis Current Visit: Yes Status: Acute Assessment and Plan: On heparin drip - Time Spent with Patient Total time spent is greater than 50% in coordination of care (as documented) at patient's floor/unit and/or counseling patient: Internal Medicine: Result - Labs CBC & Chem 7: 01/28/19 05:32 01/28/19 05:32 Labs: Short CBC 01/28/19 Range/Units 05:32 WBC 9.4 (4.3-11.1) K/mcL Hgb 13.2 (11.5-15.4) g/dL Hct 43.0 (35.3-44.9) % Plt Count 184 (140-400) K/mcL Neutrophils # 8.6 (1.6-8.9) K/mcL BMP 01/28/19 05:32 Sodium 137 Potassium 4.6 Chloride 100 Carbon Dioxide 24 BUN 36 H Creatinine 1.97 H Glucose 319 H Calcium 9.6 Cardiac Enzymes 01/27/19 01/27/19 01/27/19 Range/Units 10:45 16:32 21:38 Troponin I < 0.03 < 0.03 0.06 H* (< 0.04) ng/mL 01/28/19 Range/Units 05:32 Troponin I 0.75 H* (< 0.04) ng/mL Urine 01/27/19 Range/Units 11:10 Urine Color Yellow (Yellow) Urine Clarity Cloudy A (Clear) Urine pH 5.0 (5.0-8.0) pH Units Ur Specific [place] 1.021 (1.010-1.025) Urine Protein 100 H (Neg-Trace) mg/dL Urine Glucose (UA) Normal (Normal) mg/dL - ABG Interpretation ABG results: ABG ABG pH 7.30 pH Units (7.32-7.45) L 01/27/19 12:13 ABG pCO2 57 mmHg (35-45) H 01/27/19 12:13 ABG pO2 39 mmHg (85-104) L* 01/27/19 12:13 ABG O2 Saturation 67 % (95-98) L 01/27/19 12:13 PT/INR, D-dimer PT 11.1 Seconds (9.4-12.1) 01/27/19 07:35 <Mahin Alfaro - Last Filed: 01/28/19 12:27> (4) Chronic kidney disease (CKD) Qualifiers: Chronic kidney disease stage: stage 3 (moderate) Qualified Code(s): N18.3 - Chronic kidney disease, stage 3 (moderate) (5) Diabetes mellitus Qualifiers: Diabetes mellitus terminal superintendent insulin use: with terminal superintendent use Qualified Code(s): E11.9 - Type 2 diabetes mellitus without complications <Jodi Lo - Last Filed: 01/28/19 15:32> (5) Chronic kidney disease (CKD) Qualifiers: Chronic kidney disease stage: stage 3 (moderate) Qualified Code(s): N18.3 - Chronic kidney disease, stage 3 (moderate) (6) Diabetes mellitus Qualifiers: Diabetes mellitus chcf insulin use: with chcf use
[2019-01-28] MEDS ORDERED: *HR* Heparin 5,000 UNIT/ML VIAL IVP PRN ×2 (09:36)
[2019-01-28] MEDS ORDERED: *HR* Heparin 5,000 UNIT/ML VIAL IVP ONE (09:36)
[2019-01-28] MEDS ORDERED: Heparin 25,000 UNIT/250 ML D5W 25,000 UNIT/250 ML IV.SOLN IVC SCH ×3 (09:45→11:45)
[2019-01-28 12:51] LABS: Heparin anti-factor XA UFH 0.04 IU/mL (0.30-0.70); Prothrombin Time 10.9 Seconds (9.4-12.1)
[2019-01-28] MEDS: Heparin 25,000 UNIT/250 ML D5W 25,000 UNIT/250 ML IV.SOLN IVC SCH (13:08)
--- NOTE | 2019-01-28 13:22 | Cardiology Consult Note ---
<Flaquito Thomas R - Last Filed: 01/28/19 13:38> Date of Encounter: 01/28/19 Time of Encounter: 13:19 Assessment and Plan (1) NSTEMI (non-ST elevated myocardial infarction) Current Visit: Yes Status: Acute Presenting with complaints of cough and shortness of breath of 1 week duration. She denies chest pain. Troponins 0.06, 0.75, 1.20 in setting of THERESE and COPD exacerbation. Type I vs type II NSTEMI. ECG with diffuse ST flattening. On heparin gtt, ASA, Plavix, BB. Will add statin. TTE 08/2017: LVEF 55%. History of bioprosthetic mitral valve replacement. Normal seated bioprosthetic valve without evidence for stenosis. There is trace mitral valve regurgitation. Mild TR. Mild phtn. [facility] 06/14/17: Triple vessel coronary artery disease. S/P CABG 2 of 2 patent bypass grafts. EF 65%. [employer] of proximal RCA, previously stented OM2. There is a 50% stenosis in the Proximal Circumflex. There is a 40% instent restenosis in the Mid Circumflex. Recheck TTE. Will consult nephrology for THERESE on CKD. Plan for [facility] once renal function allows. R/B/A discussed. Pt agreeable. (2) CAD (coronary artery disease) Current Visit: No Status: Chronic Hx CAD, PCI and CABG. [facility] 2017 as above. ASA, Plavix, BB. Start Statin. Qualifiers: Coronary Disease-Associated Artery/Lesion type: [place] artery [place] vs. transplanted heart: [place] heart Associated angina: without angina Qualified Code(s): I25.10 - Atherosclerotic heart disease of [place] coronary artery without angina pectoris (3) History of mitral valve replacement with bioprosthetic valve Current Visit: No Status: Chronic TTE History of bioprosthetic mitral valve replacement. Normal seated bioprosthetic valve without evidence for stenosis. There is trace mitral valve regurgitation. Repeat TTE. Discussion w patient/family: The assessment and plan as outlined above was discussed with the patient and/or family members who expressed understanding and agreement. All questions were answered. Thank you for involving us in the care of your patient. Please call with any questions. I will discuss all the above with Dr. No and make changes as necessary. History of Present Illness Consult date: 01/28/19 Consult reason: NSTEMI Chief complaint: dyspnea History of present illness: Ms. Florez is a 78 year old female with PMH of COPD on 3L of oxygen, diastolic CHF, DM, CAD s/p CABG, bioprosthetic mitral valve, PPM, presenting with complaints of cough and shortness of breath of 1 week duration. Sudden onset and has been getting progressively worse, productive cough of [place] phlegm and whee zing. CXR shows mild vascular congestion. She denies chest pain. Troponins 0.06, 0.75, 1.20. Cardiology consulted for further recs. Creatinine 1.97. Being treated for COPD exacerbation. Prior CV testing: TTE 08/2017: LVEF 55%. Indeterminate left venticular diastolic function. Mildly dilated RV with normal function. History of bioprosthetic mitral valve replacement. Normal seated bioprosthetic valve without evidence for stenosis. There is trace mitral valve regurgitation. Mild TR. Mild phtn. [facility] 06/14/17: Triple vessel coronary artery disease. S/P CABG 2 of 2 patent bypass grafts. EF 65%. [employer] of proximal RCA, previously stented OM2. Past Med Surg Social Fam HX - Past Medical History Medical history: aortic aneurysm, arthritis, CHF, COPD, coronary artery disease, diabetes, myocardial infarction, renal disease, other Additional medical history: CAD Psychiatric history: anxiety, depression - Past Surgical History Surgical History: appendectomy, cholecystectomy, colectomy, coronary bypass (CABG), heart valve replacement, hysterectomy, knee replacement, other, pacemaker Additional surgical history: CABG 2007, 2008 heart valve, 2008 pacemaker, 9 inches of bowel removed - Social History Smoking Status: Never smoker Smokeless Tobacco Status: No Alcohol use: none Drug use: none - Family History Father Name: Eusebio Age: 68 Family Member Ethnicity: Non- Living Status: Age at : 68 Cause of : blood clot Hx Family Cardiac Disorders: No Hx Family Respiratory Disorders: No Hx Family Cancer: Yes (lung ca) Hx Family GI Disorders: No Hx Family Genitourinary Disorders: No Hx Family Endocrine Disorder: No Hx Family Musculoskeletal Disorders: No Hx Family Neuromuscular Disorders: No Hx Family Neurologic Disorders: No Hx Family HEENT Disorders: No Hx Family Autoimmune Disorders: No Hx Family Reproductive Disorders: No Hx Family Psychosocial Disorders: No Hx Family Medical Disorders: No Mother Living Status: Hx Family Cardiac Disorders: Yes Hx Family Respiratory Disorders: Yes (COPD) Hx Family Cancer: Yes (Colon.) Hx Family GI Disorders: No Hx Family Endocrine Disorder: No Hx Family Neuromuscular Disorders: No Hx Family Neurologic Disorders: No Hx Family HEENT Disorders: No Hx Family Autoimmune Disorders: No Medications and Allergies Furosemide [Lasix] 40 mg PO DAILY PRN 10/01/16 [History] Clopidogrel [Plavix] 75 mg PO DAILY 07/16/17 [History] Sertraline [Zoloft] 50 mg PO DAILY 09/21/17 [History] Aspirin [Adult Aspirin Regimen] 81 mg PO DAILY 01/27/19 [History] Insulin ASPART [NovoLOG] 0 unit SQ TIDWM PRN 01/27/19 [History] Metoprolol Succinate [Toprol Xl] 100 mg PO DAILY 01/27/19 [History] Nitroglycerin [Nitrostat] 0.4 mg SL Q5M PRN 01/27/19 [History] Allergy/AdvReac Type Severity Reaction Status Date / Time acetaminophen AdvReac Nausea Verified 01/27/19 07:29 [From Darvocet-N] codeine AdvReac See Verified 01/27/19 07:29 Comments morphine AdvReac Nausea Verified 01/27/19 07:29 propoxyphene AdvReac Nausea Verified 01/27/19 07:29 [From Darvocet-N] All Systems Review: The remainder of the systems were reviewed and are negative - Cardiovascular Cardiovascular: as per HPI, dyspnea at rest, dyspnea on exertion - Respiratory Respiratory: cough, dyspnea Physical Examination Vital Signs, Last 4 Hours Temp Pulse Resp BP Pulse Ox 01/28/19 11:29 99.5 F 87 18 118/67 92 Vital Signs Temp Pulse Resp BP Pulse Ox 01/28/19 11:29 99.5 F 87 18 118/67 92 01/28/19 07:44 18 94 01/28/19 06:57 98.3 F 84 20 127/68 97 01/28/19 03:23 97.5 F L 68 17 114/68 98 01/27/19 23:30 97.6 F 91 18 114/74 99 01/27/19 21:57 95 01/27/19 19:58 18 96 01/27/19 18:49 98.5 F 96 17 124/73 95 01/27/19 16:27 98.3 F 90 20 118/68 97 01/27/19 16:04 16 98 Intake and Output 01/27/19 01/28/19 01/28/19 23:59 07:59 15:59 Output Total 100 / 100 300 / 300 Balance -100 / -100 -300 / -300 Output: Urine 100 / 100 300 / 300 Other: # Voids 1 1 Weight 96.2 kg Blood Glucose* 295 282 323 Patient Weight 01/28/19 23:59 Weight 96.2 kg Vital Signs Temp Pulse Resp BP Pulse Ox 01/28/19 11:29 99.5 F 87 18 118/67 92 01/28/19 07:44 18 94 01/28/19 06:57 98.3 F 84 20 127/68 97 01/28/19 03:23 97.5 F L 68 17 114/68 98 01/27/19 23:30 97.6 F 91 18 114/74 99 01/27/19 21:57 95 01/27/19 19:58 18 96 01/27/19 18:49 98.5 F 96 17 124/73 95 01/27/19 16:27 98.3 F 90 20 118/68 97 01/27/19 16:04 16 98 Intake and Output 01/27/19 01/28/19 01/28/19 23:59 07:59 15:59 Output Total 100 / 100 300 / 300 Balance -100 / -100 -300 / -300 Output: Urine 100 / 100 300 / 300 Other: # Voids 1 1 Weight 96.2 kg Blood Glucose* 295 282 323 Patient Weight 01/28/19 23:59 Weight 96.2 kg General: Conversant HEENT: Atraumatic, Normocephaly, Mucus Membranes Moist Neck: No JVD, Normal carotid pulses Cardiac: Reg Rate and Rhythm, Normal S1 and S2 Lungs: Other (mild bibasilar wheezes) Neuro: Alert and responsive, No focal deficits noted Abdomen: Soft, Non-Tender Skin: No rashes noted on visualized skin Musculoskeletal: No Chest Wall Tenderness Extremities: No Clubbing, No Cyanosis, No Edema, Normal Pulses Results 01/28/19 05:32 01/28/19 05:32 Lab Results 01/27/19 01/27/19 01/28/19 16:32 21:38 05:32 WBC 9.4 Hgb 13.2 Hct 43.0 Plt Count 184 INR Sodium Potassium Chloride Carbon Dioxide BUN Creatinine Glucose Calcium Magnesium Troponin I < 0.03 0.06 H* 01/28/19 01/28/19 01/28/19 05:32 05:32 12:27 WBC Hgb Hct Plt Count INR Sodium 137 Potassium 4.6 Chloride 100 Carbon Dioxide 24 BUN 36 H Creatinine 1.97 H Glucose 319 H Calcium 9.6 Magnesium 2.0 Troponin I 0.75 H* 1.20 H* 01/28/19 12:27 WBC Hgb Hct Plt Count INR 1.0 Sodium Potassium Chloride Carbon Dioxide BUN Creatinine Glucose Calcium Magnesium Troponin I Short CBC 01/28/19 Range/Units 05:32 WBC 9.4 (4.3-11.1) K/mcL Hgb 13.2 (11.5-15.4) g/dL Hct 43.0 (35.3-44.9) % Plt Count 184 (140-400) K/mcL Neutrophils # 8.6 (1.6-8.9) K/mcL BMP 01/28/19 Range/Units 05:32 Sodium 137 (136-145) mEq/L Potassium 4.6 (3.5-5.1) mEq/L Chloride 100 (98-107) mEq/L Carbon Dioxide 24 (23-29) mEq/L BUN 36 H (8-23) mg/dL Creatinine 1.97 H (0.60-1.20) mg/dL Glucose 319 H (70-105) mg/dL Calcium 9.6 (8.6-10.3) mg/dL Cardiac Enzymes 01/28/19 01/28/19 01/27/19 Range/Units 12:27 05:32 21:38 Troponin I 1.20 H* 0.75 H* 0.06 H* (< 0.04) ng/mL 01/27/19 Range/Units 16:32 Troponin I < 0.03 (< 0.04) ng/mL Active Medications Albuterol/Ipratropium (Duoneb) 3 ml IH [id number] MARCELLA Stop: 07/29/19 12:01 Last Admin: 01/28/19 11:34 Dose: Not Given Documented by: Aspirin (Aspirin) 81 mg PO DAILY MARCELLA Stop: 07/29/19 10:01 Last Admin: 01/28/19 08:19 Dose: 81 mg Documented by: Budesonide/Formoterol Fumarate (Symbicort) 2 puff IH BIDR [facility]; Protocol Stop: 07/29/19 10:01 Last Admin: 01/28/19 07:45 Dose: 2 puff Documented by: Clopidogrel Bisulfate (Plavix) 75 mg PO DAILY [facility] Stop: 07/29/19 10:01 Last Admin: 01/28/19 08:19 Dose: 75 mg Documented by: Dextrose/Water (Dextrose 50% (Syg)) 25 ml IVP AD PRN PRN Reason: Hypoglycemia Stop: 07/29/19 09:59 Glucagon (Glucagen) 1 mg IM ONCE PRN PRN Reason: Hypoglycemia Stop: 07/29/19 09:59 Glucose (Gluctose) 15 gm PO ONCE PRN PRN Reason: Hypoglycemia Stop: 07/29/19 09:59 Glucose (Gluctose) 30 gm PO ONCE PRN PRN Reason: Hypoglycemia Stop: 07/29/19 09:59 Heparin Sodium (Porcine) (Heparin) 4,000 unit IVP Q6HR PRN PRN Reason: SEE COMMENTS Stop: 07/30/19 09:37 Heparin Sodium (Porcine) (Heparin) 2,000 unit IVP Q6H PRN PRN Reason: SEE COMMENTS Stop: 07/30/19 09:37 Dextrose (Dextrose 5%) 1,000 mls @ 100 mls/hr IVC .Q10H PRN PRN Reason: HYPOGLYCEMIA Stop: 07/29/19 09:59 Levofloxacin/Dextrose (Levaquin Premix 750mg/150 Ml) 750 mg in 150 mls @ 100 mls/hr IVPB Q48H [facility]; Protocol Stop: 07/29/19 11:16 Last Admin: 01/27/19 11:33 Dose: 100 mls/hr Documented by: Heparin Sodium/Dextrose (Heparin 25,000 Unit/250 Ml D5w) 25,000 unit in 250 mls @ 9.62 mls/hr IVC .Q24H [facility]; Protocol Stop: 07/30/19 11:46 Last Admin: 01/28/19 13:08 Dose: 10 units/kg/hr, 9.6 mls/hr Documented by: Insulin Detemir (Levemir) 25 unit SQ HS [facility] Stop: 07/29/19 21:01 Last Admin: 04/30/19 21:46 Dose: 25 unit Documented by: Insulin Human Lispro (Humalog) 0 units SQ TIDAC [facility]; Protocol Stop: 07/29/19 11:31 Last Admin: 01/28/19 12:32 Dose: 12 unit Documented by: Metoprolol Succinate (Toprol Xl) 100 mg PO DAILY [facility] Stop: 07/30/19 09:01 Last Admin: 01/28/19 08:20 Dose: 100 mg Documented by: Naloxone HCl (Narcan) 0.4 mg IVP Q2M PRN PRN Reason: SEE COMMENTS Stop: 07/29/19 09:53 Prednisone (Prednisone) 40 mg PO DAILY [facility] Stop: 07/31/19 09:01 Sertraline HCl (Zoloft) 50 mg PO DAILY [facility] Stop: 07/30/19 09:01 Last Admin: 01/28/19 08:19 Dose: 50 mg Documented by: - Imaging and Cardiology Echo: pending Cardiac cath: report reviewed - EKG Interpretation EKG results cardiology: personally reviewed (SR, diffuse ST flattening) Consult Discharge Plan - Plan Referrals: Edgar Nguyen Jr, MD [Primary Care Provider] - <Dewey No A - Last Filed: 01/28/19 17:15> Date of Encounter: 01/28/19 - Attending Attestation I have personally performed a face to face evaluation on this patient. I have reviewed and agree with the documented findings and care plan as documented by the JUNIOR WE[employer] DES[employer]ER. History and Exam by me shows: 78 year-old pleasant female with history of CAD admitted with COPD exacerbation and found to have elevated troponins. EKG shows ectopic atrial rhythm with no acute ST-T wave changes. She is currently chest pain-free but wheezing on exam. We will arrange for coronary angiogram once she is no longer wheezing and able to lay flat Dewey White MD FACC Assessment and Plan Discussion w patient/family: The assessment and plan as outlined above was discussed with the patient and/or family members who expressed understanding and agreement. All questions were answered. Thank you for involving us in the care of your patient. Please call with any questions. History of Present Illness History of present illness: Ms. Florez is a 78 year old female All Systems Review: The remainder of the systems were reviewed and are negative Physical Examination Vital Signs, Last 4 Hours Temp Pulse Resp BP Pulse Ox 01/28/19 16:24 98.8 F 69 16 114/67 94 Results 01/28/19 05:32 01/28/19 05:32 Lab Results 01/27/19 01/27/19 01/28/19 16:32 21:38 05:32 WBC 9.4 Hgb 13.2 Hct 43.0 Plt Count 184 INR Sodium Potassium Chloride Carbon Dioxide BUN Creatinine Glucose Calcium Magnesium Troponin I < 0.03 0.06 H* 01/28/19 01/28/19 01/28/19 05:32 05:32 12:27 WBC Hgb Hct Plt Count INR Sodium 137 Potassium 4.6 Chloride 100 Carbon Dioxide 24 BUN 36 H Creatinine 1.97 H Glucose 319 H Calcium 9.6 Magnesium 2.0 Troponin I 0.75 H* 1.20 H* 01/28/19 12:27 WBC Hgb Hct Plt Count INR 1.0 Sodium Potassium Chloride Carbon Dioxide BUN Creatinine Glucose Calcium Magnesium Troponin I
--- NOTE | 2019-01-28 14:15 | Electrocardiograph Report ---
[address] [place] [address] Test Date: 2019-01-27 Pat Name: Delores Florez Department: 114 Room: [facility] Gender: F Emt I/85: : 1940 Requested By: Fabio Bustillos Order Number: [id number] Reading MD: Dewey No Measurements Intervals [place] Rate: 89 P: -85 [place]: 121 QRS: 44 QRSD: 98 T: 65 QT: 355 QTc: 402 Interpretive Statements Sinus or ectopic atrial rhythm POSSIBLE INFERIOR MYOCARDIAL INFARCTION, PROBABLY OLD ABNORMAL RHYTHM ECG Electronically Signed On 01-28-2019 14:13:30 EDT by Dewey No
[2019-01-28] MEDS ORDERED: 0.9 % Sodium Chloride 1,000 ML IVC SCH (16:00)
--- NOTE | 2019-01-28 18:14 | Nephrology Consult Note ---
Date of Encounter: 01/28/19 Time of Encounter: 17:45 Assessment and Plan (1) Acute worsening of stage 3 chronic kidney disease Current Visit: No Status: Acute I reviewed her labs and vital sign trend's, progress notes and ECW in [employer], medications and imaging. She has an THERESE on CKD stage IIIB to 4. Her baseline GFR appears to be in the low 30s to upper 20s. I recommend avoiding nephrotoxins as able, and following a renal protective strategy. She may have upcoming IV contrast exposure, and in general I would recommend using iso-osmolar contrast agent as well as using the least amount of contrast. If her renal function is more stable tomorrow, then it would be reasonable to proceed with the heart catheter. Regarding her chronic kidney disease, her risk factors include previous AAA and subsequent CT angiograms for monitoring/surveillance, remote use of NSAIDs exposure years ago, frequent urinary tract infections, obesity, age, etc. She has reportedly had ureteral issues and has seen a urologist(s) years ago. I recommend checking a retroperitoneal ultrasound. I discussed approaches for renal protection with her and her , and they requested Mucomyst, which I have ordered. Thank you for consulting [facility], and I will follow with you. (2) NSTEMI (non-ST elevated myocardial infarction) Current Visit: Yes Status: Acute History of Present Illness - Reason for Consult Consult date: 01/28/19 Acute Kidney Injury, Chronic Kidney Disease Requesting physician: Flaquito Thomas - Chief Complaint THERESE on CKD stage IIIb-IV - History of Present Illness The patient is a very pleasant 78-year-old female who presented with elevated troponin and elevated creatinine, the latter for which nephrology was consult it. She did not affirm having recently used excessive NSAIDs. She has had previous IV contrast exposures in the past with CTAs; and, Cardiology has recommended a LHC perhaps in the next 24 hr. She did not affirm excessive vomiting and diarrhea, though has felt slightly diminished appetite recently. She has not previously seen nephrologists, she said, however her repo rted that she has seen urologists including Dr. Dozier and Dr. Allison in the [place] area in the past. Family History: no relatives with ESRD. Past Med Surg Social Fam HX - Past Medical History Medical history: aortic aneurysm, arthritis, CHF, COPD, coronary artery disease, diabetes, myocardial infarction, renal disease, other Additional medical history: CAD Psychiatric history: anxiety, depression - Past Surgical History Surgical History: appendectomy, cholecystectomy, colectomy, coronary bypass (CABG), heart valve replacement, hysterectomy, knee replacement, other, pacemaker Additional surgical history: CABG 2007, 2008 heart valve, 2009 pacemaker, 9 inches of bowel removed - Social History Smoking Status: Never smoker Smokeless Tobacco Status: No Alcohol use: none Drug use: none - Family History Father Name: Eusebio Age: 68 Family Member Ethnicity: Non- Living Status: Age at : 68 Cause of : blood clot Hx Family Cardiac Disorders: No Hx Family Respiratory Disorders: No Hx Family Cancer: Yes (lung ca) Hx Family GI Disorders: No Hx Family Genitourinary Disorders: No Hx Family Endocrine Disorder: No Hx Family Musculoskeletal Disorders: No Hx Family Neuromuscular Disorders: No Hx Family Neurologic Disorders: No Hx Family HEENT Disorders: No Hx Family Autoimmune Disorders: No Hx Family Reproductive Disorders: No Hx Family Psychosocial Disorders: No Hx Family Medical Disorders: No Mother Living Status: Hx Family Cardiac Disorders: Yes Hx Family Respiratory Disorders: Yes (COPD) Hx Family Cancer: Yes (Colon.) Hx Family GI Disorders: No Hx Family Endocrine Disorder: No Hx Family Neuromuscular Disorders: No Hx Family Neurologic Disorders: No Hx Family HEENT Disorders: No Hx Family Autoimmune Disorders: No Medications and Allergies Furosemide [Lasix] 40 mg PO DAILY PRN 10/01/16 [History] Clopidogrel [Plavix] 75 mg PO DAILY 07/16/17 [History] Sertraline [Zoloft] 50 mg PO DAILY 09/21/17 [History] Aspirin [Adult Aspirin Regimen] 81 mg PO DAILY 01/27/19 [History] Insulin ASPART [NovoLOG] 0 unit SQ TIDWM PRN 01/27/19 [History] Metoprolol Succinate [Toprol Xl] 100 mg PO DAILY 01/27/19 [History] Nitroglycerin [Nitrostat] 0.4 mg SL Q5M PRN 01/27/19 [History] Allergy/AdvReac Type Severity Reaction Status Date / Time acetaminophen AdvReac Nausea Verified 01/27/19 07:29 [From [place]-N] codeine AdvReac See Verified 01/27/19 07:29 Comments morphine AdvReac Nausea Verified 01/27/19 07:29 propoxyphene AdvReac Nausea Verified 01/27/19 07:29 [From [place]-N] Review of Systems All Systems: reviewed and no additional remarkable complaints except as stated Exam - Vital Signs Vital signs: Initial Vital Signs Temp Pulse Resp BP Pulse Ox 98.4 F 98 24 193/89 97 01/27/19 07:18 01/27/19 07:18 01/27/19 07:18 01/27/19 07:18 01/27/19 07:18 Vital Signs - Last 8 Hours Temp Pulse Resp BP Pulse Ox 01/28/19 16:24 98.8 F 69 16 114/67 94 01/28/19 11:29 99.5 F 87 18 118/67 92 Intake and Output 01/28/19 01/28/19 01/28/19 07:59 15:59 23:59 Output Total 300 / 300 Balance -300 / -300 Output: Urine 300 / 300 Other: # Voids 1 1 Weight 96.2 kg Blood Glucose* 282 323 197 Patient Weight 01/28/19 23:59 Weight 96.2 kg - General Appearance General appearance: well-developed, well-nourished, appears started age, obese EENT: ATNC, PERRL, mucous membranes moist Neck: supple Respiratory: course breath sounds Cardiology: no edema, regular rate, regular rhythm Gastrointestinal: normoactive bowel sounds, no tenderness, no guarding, obese Integumentary: no rash, warm and dry Neurologic: no focal deficit, no asterixis, alert and oriented x3 Musculoskeletal: no deformities Psychiatric: mood/affect appropriate, cooperative Results - Lab Results 01/31/19 05:05 01/31/19 05:05 Most recent lab results 01/28/19 05:32 Calcium 9.6 Phosphorus 3.9 Magnesium 2.0 Consult Discharge Plan - Plan Referrals: Edgar Nguyen Jr, MD [Primary Care Provider] -
[2019-01-28] MEDS ORDERED: Perflutren Lipid Microsphere 1.3 ML in 0.9 % Sodium Chloride 8.7 ML IVP ONE (19:50)
[2019-01-28] MEDS: Insulin DETEMIR 100 UNIT/ML X5UNITS SQ SCH (19:54)
[2019-01-29] MEDS: *HR* Acetylcysteine 20% 600 MG/3 ML ORAL SYRINGE PO SCH ×3 (00:03→21:09)
[2019-01-29 00:59] LABS: Basophils % 0.1 %; Hematocrit 41.6 % (35.3-44.9); Hemoglobin 12.8 g/dL (11.5-15.4); Immature Granulocytes % 0.5 % (0-4); Lymphocytes # 1.1 K/mcL (0.6-4.6); Mean Corpuscular HGB Conc 30.8 g/dL (31.6-35.5); Mean Corpuscular Hemoglobin 28.8 pg (28.0-33.3); Mean Corpuscular Volume 93.5 fL (83.0-100.0); Mean Platelet Volume 10.5 fL (9.4-12.4); Monocytes % 5.5 %; Platelet Count 213 K/mcL (140-400); Red Blood Count 4.45 M/mcL (3.82-4.97); Red Cell Distribution Width 14.6 % (11.5-14.5); Segmented Neutrophils % 87.9 %
[2019-01-29 01:16] LABS: Calcium 9.4 mg/dL (8.6-10.3); Potassium 5.1 mEq/L (3.5-5.1); Uric Acid 8.4 mg/dL (2.3-7.6)
[2019-01-29 01:28] LABS: Troponin I 1.19 ng/mL (< 0.04)
[2019-01-29] MEDS: Ipratropium/Albuterol Neb 3 ML IH SCH ×2 (03:47→07:37)
[2019-01-29] MEDS: Budesonide/Formoterol 160/4.5 1 PUFF INH IH SCH ×2 (07:37→20:33)
[2019-01-29] MEDS ORDERED: Nitroglycerin 0.4 MG TAB.SUBL SL ONE (09:05)
[2019-01-29] MEDS: Insulin LISPRO 300 UNITS/3 ML VIAL SQ SCH ×3 (10:00→16:30)
[2019-01-29] MEDS: Aspirin 81 MG TAB.CHEW PO SCH (10:00)
[2019-01-29] MEDS: Metoprolol XL (24 HR) Succ 50 MG TAB.ER.24H PO SCH (10:01)
[2019-01-29] MEDS: predniSONE 20 MG TABLET PO SCH (10:01)
[2019-01-29] MEDS ORDERED: Ipratropium/Albuterol Neb 3 ML IH PRN (10:40)
[2019-01-29] MEDS ORDERED: Nitroglycerin 0.4 MG TAB.SUBL SL PRN (10:45)
--- NOTE | 2019-01-29 11:04 | Cardiology Progress Note ---
Date of Encounter: 01/29/19 Time of Encounter: 08:30 Assessment and Plan (1) NSTEMI (non-ST elevated myocardial infarction) Current Visit: Yes Status: Acute Per cardiology: -Presenting with complaints of cough and shortness of breath of 1 week duration. -Troponins 0.06, 0.75, 1.20, 1.31, 0.87 in setting of THERESE and COPD exacerbation. Type I vs type II NSTEMI. ECG with diffuse ST flattening. -On heparin gtt, ASA, Plavix, statin. -TTE 08/2017: LVEF 55%. History of bioprosthetic mitral valve replacement. Normal seated bioprosthetic valve without evidence for stenosis. There is trace mitral valve regurgitation. Mild TR. Mild phtn. -TTE this admission with LVEF 60%. Indeterminate diastolic function. Bioprosthetic mitral valve not well visualized. Trace mitral regurgitation. Prosthetic mitral valve MG 6 mmHg at 74 bpm. No significant change in gradients when compared to Echo 09/24/2017. Mild tricuspid regurgitation. Moderate pulmon berry hypertension by TR gradient. All wall segments showed normal motion. -LHC 06/14/17: Triple vessel coronary artery disease. S/P CABG 2 of 2 patent bypass grafts. EF 65%. VEGETABLE COOK of proximal RCA, previously stented OM2. There is a 50% stenosis in the Proximal Circumflex. There is a 40% instent restenosis in the Mid Circumflex. -Of note, patient reported some atypical chest pain this am. Denies current chest pain. -THERESE noted, nephrology following. -Plan for LHC when able. Ideally, would like to see renal function back to baseline prior to LHC. Also would optimize respiratory status prior to LHC, wheezes noted on exam. Discussed and reviewed with . Will make NPO after midnight. Will add imdur. -Will continue to monitor. (2) History of mitral valve replacement with bioprosthetic valve Current Visit: No Status: Chronic Per cardiology: -TTE History of bioprosthetic mitral valve replacement. Normal seated bioprosthetic valve without evidence for stenosis. There is trace mitral valve regurgitation. -Repeat TTE as above. Discussion w patient/family: The assessment and plan as outlined above was discussed with the patient and/or family members who expressed understanding and agreement. All questions were answered. Thank you for involving us in the care of your patient. Please call with any questions. Discussed and reviewed with Subjective Principal diagnosis: COPD exacerbation, NSTEMI Interval history: Patient reports some atypical chest burning this mornig that started at rest, lasted less than one minute, and resolved without intervention. Objective Vital Signs, Last 4 Hours Temp Pulse Resp BP Pulse Ox 01/29/19 10:21 98.1 F 69 16 138/73 96 01/29/19 08:00 98.1 F 73 18 142/80 96 01/29/19 07:39 17 96 General: Conversant, No Apparent Distress HEENT: Atraumatic, Normocephaly, Mucus Membranes Moist Neck: No JVD, Normal carotid pulses Cardiac: Reg Rate and Rhythm, Normal S1 and S2, No Murmur Lungs: Other (Expiratory wheezing noted throughout. ) Neuro: Alert and responsive, No focal deficits noted Abdomen: Soft, Non-Tender Skin: No rashes noted on visualized skin Musculoskeletal: No Chest Wall Tenderness Extremities: No Clubbing, No Cyanosis, No Edema, Normal Pulses Results 01/29/19 00:42 01/29/19 00:42 Lab Results Impressions Echocardiogram 01/28/19 11:51 Impressions: LVEF 60%. Indeterminate diastolic function. Normal right ventricular structure and function. Bioprosthetic mitral valve not well visualized. Trace mitral regurgitation. Prosthetic mitral valve MG 6 mmHg at 74 bpm. No significant change in gradients when compared to Echo 09/24/2017. Recommend correlate with type of valve. Mild tricuspid regurgitation. Moderate pulmonary hypertension by TR gradient. Device leads reported by history are not well visualized on this study. Left Ventricular Wall Motion: Rest Echo Findings All wall segments showed normal motion. Findings: Study Quality * Technically adequate exam. * Technical review due to_. ECG Findings * Normal sinus rhythm. Left Ventricle * LVEF 60%. * Indeterminate diastolic function. * Normal LV chamber size, wall thickness and function. Right Ventricle * Normal right ventricular structure and function. Left Atrium * Moderately dilated left atrium. Right Atrium * Normal right atrial size. Mitral Valve * Bioprosthetic mitral valve not well visualized. * Trace mitral regurgitation. * Prosthetic mitral valve MG 6 mmHg at 74 bpm. Aortic Valve * Aortic valve not well visualized. * No aortic regurgitation. * No aortic stenosis. Tricuspid Valve * Tricuspid valve not well visualized. * Mild tricuspid regurgitation. Pulmonic Valve * Pulmonic valve is not well visualized. * No pulmonic stenosis. * No pulmonic regurgitation. Pulmonary Artery * Pulmonary artery not well visualized. Aorta * Normally sized aortic root. Pericardium * There is no pericardial effusion present. Interatrial Septum * Interatrial septum not well evaluated. IVC * The IVC is not well evaluated. Retroperitoneum Ultrasound 01/28/19 20:30 IMPRESSION: Unremarkable ultrasound of the kidneys and urinary bladder. D/ / King Love / King Love Interpreting Provider: King Love Active Medications Acetylcysteine (Acetylcysteine 20%) 600 mg PO BID [facility] Stop: 01/31/19 21:01 Last Admin: 01/29/19 00:03 Dose: 600 mg Documented by: Albuterol/Ipratropium (Duoneb) 3 ml IH [id number] PRN PRN Reason: Shortness Of Breath/Wheezing Stop: 07/31/19 10:41 Aspirin (Aspirin) 81 mg PO DAILY [facility] Stop: 07/29/19 10:01 Last Admin: 01/29/19 10:00 Dose: 81 mg Documented by: Atorvastatin Calcium (Lipitor) 40 mg PO HS [facility] Stop: 07/30/19 21:01 Last Admin: 01/28/19 19:54 Dose: 40 mg Documented by: Budesonide/Formoterol Fumarate (Symbicort) 2 puff IH BIDR [facility]; Protocol Stop: 07/29/19 10:01 Last Admin: 01/29/19 07:37 Dose: 2 puff Documented by: Clopidogrel Bisulfate (Plavix) 75 mg PO DAILY [facility] Stop: 07/29/19 10:01 Last Admin: 01/29/19 10:00 Dose: 75 mg Documented by: Dextrose/Water (Dextrose 50% (Syg)) 25 ml IVP AD PRN PRN Reason: Hypoglycemia Stop: 07/29/19 09:59 Glucagon (Glucagen) 1 mg IM ONCE PRN PRN Reason: Hypoglycemia Stop: 07/29/19 09:59 Glucose (Gluctose) 15 gm PO ONCE PRN PRN Reason: Hypoglycemia Stop: 07/29/19 09:59 Glucose (Gluctose) 30 gm PO ONCE PRN PRN Reason: Hypoglycemia Stop: 07/29/19 09:59 Heparin Sodium (Porcine) (Heparin) 4,000 unit IVP Q6HR PRN PRN Reason: SEE COMMENTS Stop: 07/30/19 09:37 Heparin Sodium (Porcine) (Heparin) 2,000 unit IVP Q6H PRN PRN Reason: SEE COMMENTS Stop: 07/30/19 09:37 Dextrose (Dextrose 5%) 1,000 mls @ 100 mls/hr IVC .Q10H PRN PRN Reason: HYPOGLYCEMIA Stop: 07/29/19 09:59 Levofloxacin/Dextrose (Levaquin Premix 750mg/150 Ml) 750 mg in 150 mls @ 100 mls/hr IVPB Q48H [facility]; Protocol Stop: 07/29/19 11:16 Last Admin: 01/27/19 11:33 Dose: 100 mls/hr Documented by: Heparin Sodium/Dextrose (Heparin 25,000 Unit/250 Ml D5w) 25,000 unit in 250 mls @ 9.62 mls/hr IVC .Q24H [facility]; Protocol Stop: 07/30/19 11:46 Last Titration: 01/29/19 01:50 Dose: 9.98 units/kg/hr, 9.6 mls/hr Documented by: Insulin Detemir (Levemir) 35 unit SQ HS [facility] Stop: 07/30/19 21:01 Last Admin: 01/28/19 19:54 Dose: 35 unit Documented by: Insulin Human Lispro (Humalog) 0 units SQ TIDAC [facility]; Protocol Stop: 07/29/19 11:31 Last Admin: 01/29/19 10:00 Dose: Not Given Documented by: Isosorbide Mononitrate (Imdur) 30 mg PO DAILY [facility] Stop: 07/31/19 10:01 Metoprolol Succinate (Toprol Xl) 100 mg PO DAILY [facility] Stop: 07/30/19 09:01 Last Admin: 01/29/19 10:01 Dose: 100 mg Documented by: Naloxone HCl (Narcan) 0.4 mg IVP Q2M PRN PRN Reason: SEE COMMENTS Stop: 07/29/19 09:53 Nitroglycerin (Nitroglycerin) 0.4 mg SL Q5MI PRN PRN Reason: SEE COMMENTS Stop: 07/31/19 10:46 Prednisone (Prednisone) 40 mg PO DAILY [facility] Stop: 07/31/19 09:01 Last Admin: 01/29/19 10:01 Dose: 40 mg Documented by: Sertraline HCl (Zoloft) 50 mg PO DAILY [facility] Stop: 07/30/19 09:01 Last Admin: 01/29/19 10:01 Dose: 50 mg Documented by: Laboratory Tests 01/27/19 01/27/19 01/28/19 07:35 21:38 05:32 WBC Hgb Creatinine 1.59 H 1.97 H Troponin I 0.06 H* 01/28/19 01/28/19 01/28/19 05:32 12:27 16:33 WBC Hgb Creatinine Troponin I 0.75 H* 1.20 H* 1.31 H* 01/28/19 01/29/19 01/29/19 22:14 00:42 00:42 WBC 18.2 H D Hgb 12.8 Creatinine 1.94 H Troponin I 1.11 H* 1.19 H* 01/29/19 06:34 WBC Hgb Creatinine Troponin I 0.81 H* - Imaging and Cardiology Chest Xray: report reviewed Echo: report reviewed Cardiac cath: pending, report reviewed - EKG Interpretation EKG results cardiology: other (Telemetry reviewed with average HR previous 12 hours noted to be 67, SR. PVCs and PACs noted.) Consult Discharge Plan - Plan Referrals: Edgar Nguyen Jr, MD [Primary Care Provider] -
[2019-01-29] MEDS: Isosorbide MONOnitrate (24 HR) 30 MG TAB.ER.24H PO SCH (11:10)
--- NOTE | 2019-01-29 13:15 | Electrocardiograph Report ---
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
--- NOTE | 2019-01-29 13:51 | Nephrology Progress Note ---
Date of Encounter: 01/29/19 Time of Encounter: 08:45 - Assessment and Plan (1) Acute kidney injury superimposed on CKD Current Visit: Yes Status: Acute THERESE on CKD stage 3b- 4. Baseline GFR 30s-40s. Cr= 1.40, elevated from baseline. Possibly due to cardio-renal causes. CKD likely due to hx of frequent NSAIDs, DM 2, CTAs every 6 month for AAA monitoring s/p repair, previous urethral stricture. Retroperitoneal ultrasound showed The right kidney measures 9.8 cm in length and the left kidney measures 9.7cm in length. Kidneys demonstrate normal cortical echogenicity. No evidence of hydronephrosis or intrarenal stones. Due to patient's renal function not worsening, LHC can be performed today with contrast used with a renal protective strategy. If accurate I/Os, patient was oliguric yesterday, will continue to monitor today . Plan: - LHC today, per cardiology -Acetylcysteine 600mg PO BID - s/p 1L NS, continue to monitor fluid status - minimize nephrotoxins - adjust medications per CrCl (2) HTN (hypertension) Current Visit: No Status: Chronic HTN. Continue home dose of Metoprolol 100mg Po daily. Continue to monitor as patient's blood pressure has been rising, but will not add medication at this time due to most likely drop in blood pressure after LHC due to sedation. Qualifiers: Hypertension type: essential hypertension Qualified Code(s): I10 - Essential (primary) hypertension (3) Acute on chronic diastolic heart failure Current Visit: Yes Status: Acute (4) DVT prophylaxis Current Visit: Yes Status: Acute (5) Acute exacerbation of chronic obstructive airways disease Current Visit: Yes Status: Acute (6) Diabetes mellitus Current Visit: Yes Status: Acute Qualifiers: Diabetes mellitus type: type 2 Diabetes mellitus residential insulin use: with residential use Diabetes mellitus complication status: with kidney complica tions Diabetes mellitus complication detail: with chronic kidney disease Chronic kidney disease stage: stage 3 (moderate) Qualified Code(s): E11.22 - Type 2 diabetes mellitus with diabetic chronic kidney disease; N18.3 - Chronic kidney disease, stage 3 (moderate); 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 Na hope s a78 y/o female with a pmh of COPD on 3L NC, CHF, and CKD stage 3b-4 who presented to the ED with SOB and was found to have an NSTEMI and COPD exacerbation. Nephrology was consulted for management of THERESE on CKD and contrast. Today, patient states that she was not having chest pain this morning at 8AM. She feels her respiratory status has improved since yesterday. She has been able to get up and use the bathroom. She denies dysuria, hematuria. Objective - Vital Signs Vital signs: Vital Signs Temp Pulse Resp BP Pulse Ox 01/29/19 10:21 98.1 F 69 16 138/73 96 01/29/19 08:00 98.1 F 73 18 142/80 96 01/29/19 07:39 17 96 01/29/19 06:49 98.0 F 64 18 175/76 96 01/29/19 04:15 97.9 F 72 20 148/76 99 01/29/19 03:47 23 154/78 98 01/28/19 23:18 23 154/78 98 01/28/19 23:09 98.1 F 76 17 154/78 96 01/28/19 20:05 92 01/28/19 19:36 18 94 01/28/19 18:46 98.4 F 76 17 127/67 92 01/28/19 16:24 98.8 F 69 16 114/67 94 Intake and Output 01/28/19 01/29/19 01/29/19 23:59 07:59 15:59 Intake Total 165 / 165 56 / 56 Output Total 100 / 400 100 / 150 50 / 150 Balance 65 / -235 -44 / -94 -50 / -94 Intake: IV Fluids 65 / 65 56 / 56 Heparin 25,000 UNIT/250 ML D5W 65 / 65 56 / 56 25,000 unit In 250 ml @ 10 UNITS/KG/HR 9.62 mls/hr IVC . Q24H [facility] Rx#:[id number] Oral 100 / 100 Output: Urine 100 / 400 100 / 150 50 / 150 Other: # Voids 1 Blood Glucose* 169 130 151 - General Appearance Exam: Constitutional: Alert, in no acute distress Head: Normocephalic, atraumatic Heart: Normal, regular rate and rhythm, no murmurs Lungs: + wheezing present, on NC 3L, no increase in SOB with talking Abdomen: Soft, nondistended, nontender, bowel sounds present and normal, no guarding or rigidity. Extremities: No edema, No clubbing, radial pulse +2/4, capillary refill <2sec. Skin: Skin warm and dry, no lesions, no rashes, no jaundice Neurologic: Cranial nerves II through XII grossly intact, strength 5/5 in all extremities Psych: Cooperative with exam, good eye contact, cognitive function intact, speech clear, thought process logical, and goal directed - Lab 01/29/19 00:42 01/29/19 00:42 Consult Discharge Plan - Plan Referrals: Edgar Nguyen Jr, MD [Primary Care Provider] -
--- NOTE | 2019-01-29 14:36 | Internal Med Progress Note ---
<Mahin Alfaro - Last Filed: 01/29/19 15:51> Hospitalist Progress Note - Encounter Date of Encounter: 01/29/19 Time of Encounter: 09:50 - Exam Vitals: Temp Pulse Resp BP Pulse Ox 98.4 F 72 17 132/68 96 01/29/19 15:40 01/29/19 15:40 01/29/19 15:40 01/29/19 15:40 01/29/19 15:40 - Assessment and Plan (1) HTN (hypertension) Current Visit: No Status: Chronic (2) Acute on chronic diastolic heart failure Current Visit: Yes Status: Acute (3) DVT prophylaxis Current Visit: Yes Status: Acute (4) Acute exacerbation of chronic obstructive airways disease Current Visit: Yes Status: Acute (5) Diabetes mellitus Current Visit: Yes Status: Acute (6) NSTEMI (non-ST elevated myocardial infarction) Current Visit: Yes Status: Acute (7) Acute kidney injury superimposed on CKD Current Visit: Yes Status: Acute - Time Spent with Patient Total time spent is greater than 50% in coordination of care (as documented) at patient's floor/unit and/or counseling patient: Internal Medicine: Result - Labs CBC & Chem 7: 01/29/19 00:42 01/29/19 00:42 Labs: Short CBC 01/29/19 Range/Units 00:42 WBC 18.2 H D (4.3-11.1) K/mcL Hgb 12.8 (11.5-15.4) g/dL Hct 41.6 (35.3-44.9) % Plt Count 213 (140-400) K/mcL Neutrophils # 16.0 H (1.6-8.9) K/mcL BMP 01/29/19 00:42 Sodium 135 L Potassium 5.1 Chloride 103 Carbon Dioxide 27 BUN 49 H Creatinine 1.94 H Glucose 192 H Calcium 9.4 Cardiac Enzymes 01/28/19 01/28/19 01/29/19 Range/Units 16:33 22:14 00:42 Troponin I 1.31 H* 1.11 H* 1.19 H* (< 0.04) ng/mL 01/29/19 Range/Units 06:34 Troponin I 0.81 H* (< 0.04) ng/mL - ABG Interpretation ABG results: ABG ABG pH 7.30 pH Units (7.32-7.45) L 01/27/19 12:13 ABG pCO2 57 mmHg (35-45) H 01/27/19 12:13 ABG pO2 39 mmHg (85-104) L* 01/27/19 12:13 ABG O2 Saturation 67 % (95-98) L 01/27/19 12:13 PT/INR, D-dimer PT 10.9 Seconds (9.4-12.1) 01/28/19 12:27 - Impressions Impressions Echocardiogram 01/28/19 11:51 Impressions: LVEF 60%. Indeterminate diastolic function. Normal right ventricular structure and function. Bioprosthetic mitral valve not well visualized. Trace mitral regurgitation. Prosthetic mitral valve MG 6 mmHg at 74 bpm. No significant change in gradients when compared to Echo 09/24/2017. Recommend correlate with type of valve. Mild tricuspid regurgitation. Moderate pulmonary hypertension by TR gradient. Device leads reported by history are not well visualized on this study. Left Ventricular Wall Motion: Rest Echo Findings All wall segments showed normal motion. Findings: Study Quality * Technically adequate exam. * Technical review due to_. ECG Findings * Normal sinus rhythm. Left Ventricle * LVEF 60%. * Indeterminate diastolic function. * Normal LV chamber size, wall thickness and function. Right Ventricle * Normal right ventricular structure and function. Left Atrium * Moderately dilated left atrium. Right Atrium * Normal right atrial size. Mitral Valve * Bioprosthetic mitral valve not well visualized. * Trace mitral regurgitation. * Prosthetic mitral valve MG 6 mmHg at 74 bpm. Aortic Valve * Aortic valve not well visualized. * No aortic regurgitation. * No aortic stenosis. Tricuspid Valve * Tricuspid valve not well visualized. * Mild tricuspid regurgitation. Pulmonic Valve * Pulmonic valve is not well visualized. * No pulmonic stenosis. * No pulmonic regurgitation. Pulmonary Artery * Pulmonary artery not well visualized. Aorta * Normally sized aortic root. Pericardium * There is no pericardial effusion present. Interatrial Septum * Interatrial septum not well evaluated. IVC * The IVC is not well evaluated. Retroperitoneum Ultrasound 01/28/19 20:30 IMPRESSION: Unremarkable ultrasound of the kidneys and urinary bladder. D/ / King Love / King Love Interpreting Provider: King Love Consult Discharge Plan - Plan Referrals: Edgar Nguyen Jr, MD [Primary Care Provider] - - Attending Attestation I saw evaluated and examined this patient and my medical decision-making was reviewed with the Resident Physician, Judy Caban. I agree with the documented findings, disposition and treatment plan as described except to any changes set forth below. We independently had [id number] contact with the patient. Patient sitting up in chair when I saw her earlier today. She denies any chest pain currently but reported chest pain earlier this morning which was burning in nature and felt like indigestion. It radiated to her back. It resolved spontaneously. He has had good urine output. Shortness of breath is improving. General: Patient is alert, mild distress, obese oriented x 3 ENT: Mucous membranes moist Respiratory: Bilateral end expiratory wheezing Cardiovascular: Regular rate and rhythm. s1 and s2 normal No clicks, rubs, gallops, or murmurs. No pedal edema Abdomen: Abdomen is soft, nontender. Bowel sounds are present Musculoskeletal: Spontaneously moving all extremities Skin: warm, dry, intact. Neuro: Alert oriented x 3 normal cranial nerves, no focal deficits Acute exacerbation of COPD: Continue bronchodilators. Continue to taper steroids. O2 supplementation as needed. Non-ST elevation HI: Continue IV heparin drip. Cardiology plans to do left heart catheterization tomorrow. Keep nothing by mouth after midnight. Remains at high risk for complications. Acute on chronic diastolic congestive heart failure: Clinically doing better. Holding off on further Lasix use due to anticipated left heart catheterization and underlying chronic kidney disease stage III Diabetes mellitus type 2: Improved blood sugars. Continue current screening scale regimen Chronic kidney disease stage III: Monitor renal function closely. Creatinine slightly improved today. Nephrology following. DVT prophylaxis: Patient is currently on IV heparin with Mucomyst given per nephrology for renal protective effects. <Judy Caban E - Last Filed: 01/29/19 17:23> Hospitalist Progress Note - Encounter Date of Encounter: 01/29/19 - Subjective Interval History: Mr. vance is a 78-year-old female who presented to the ED with complaints of cough and shortness of breath for approximately one week. Her chest x-ray on a dmission showed mild vascular congestion. Patient was started on Levaquin and Solu-Medrol. Troponin I admission was 0.06, increased to 1.31 on January 28 evening, had decreased to 0.81 small morning. Patient is currently on heparin drip. Plans for left heart catheterization tomorrow as her kidney function is improving. She states today that her shortness of breath has improved and so has her cough. She states that she is not having a productive cough any more. She she did state that she had some midsternal chest pain that radiated to her back that started 3-4 minutes before patient was seen. EKG was ordered and showed no deviations from earlier EKG, pain resolved on its own without the use of nitroglycerin. Cardiology was called and they continued therapy as stated above. Patient was told if she had this pain again to please immediately tell the nurses. Ventricles are not is on when necessary now in nurses have been told to please let the doctor know if the patient has chest pain needing nitroglycerin. - Exam Vitals: Temp Pulse Resp BP Pulse Ox 98.1 F 69 16 138/73 96 01/29/19 10:21 01/29/19 10:21 01/29/19 10:21 01/29/19 10:21 01/29/19 10:21 Exam: General: AAO 3, answers questions appropriately, mild distress Head: normocephalic, atraumatic Eyes: CALVIN, no icterus Cardio: RRR, no mumurs, rubs, or gallops Respiratory: CTAB, no wheezing, rhonchi, rales Abd: normal bowel sounds, no gaurding or rigidity Extremties: no peda edema, pulses equal bilaterally, warm Skin: warm, dry, intact - Assessment and Plan (1) Acute exacerbation of chronic obstructive airways disease Current Visit: Yes Status: Acute Assessment and Plan: She had reported increased cough and sputum production and shortness of breath for approximately one week Home oxygen of 2 L chronically Blood work within normal limits Afebrile and hemodynamically stable Chest x-ray positive for vascular gesture in Respiratory acidosis which seen on the arterial blood gas on admission pH 7.3, CO2 of 57, O2 of 39 We will continue oral steroids, Levaquin, so abdominal oxygen Continue Symbicort and bronchodilators (2) Acute kidney injury superimposed on CKD Current Visit: Yes Status: Acute Assessment and Plan: History of CK D stage III baseline creatinine of 1.2-1.6 Acute kidney injury likely from Lasix use and dehydration Creatinine 0.72 today Nephrology is consulted and we will continue to hold Lasix Avoid nephrotoxic agents and renally dose medications Continue monitoring creatinine (3) Acute on chronic diastolic heart failure Current Visit: Yes Status: Acute Assessment and Plan: Chest x-ray showed vascular congestion BNP on admission 92 Patient has known history of diastolic heart failure Lasix in the ED due to kidney function worsening diuretics he further Lasix are currently being held Diuresis if necessary Continue to monitor clinical outlook (4) DVT prophylaxis Current Visit: Yes Status: Acute Assessment and Plan: Currently on heparin drip (5) Diabetes mellitus Current Visit: Yes Status: Acute Assessment and Plan: Patient has a history of type 2 diabetes mellitus insulin-dependent Levemir 35 units Medium dose sliding scale insulin Accu-Cheks (6) NSTEMI (non-ST elevated myocardial infarction) Current Visit: Yes Status: Acute Assessment and Plan: Cardiology has been consulted and will be doing a left heart catheter tomorrow She has a history of CABG 2 in 2007 Mitral valve replacement in 2008 Abdominal aortic aneurysm repair in 2016 Pacemaker Troponins have been trending upwards Darnall in trending downwards EKG showed a normal sinus rhythm with some mild ST depressions in the anterior leads and no T-wave changes TTE in August 2017 showed LVEF 55%, history of bioprosthetic mitral valve replacement, normal seated Demian prosthetic valve without evidence for stenosis, trace mitral valve regurg, trace tricuspid regurg, mild pulmonary hypertension Left heart catheter in May 2017 showed triple-vessel coronary artery disease status post CABG with 2 patent bypass grafts, EF of 65%, [employer] of proximal RCA, previously stented OM 2. 80% stenosis in the proximal circumflex, 40% in- stent restenosis in the mid circumflex, Patient had chest pain this morning on exam that had been ongoing for approximately 3-4 minutes, this resolved within another 5 minutes without the use of nitroglycerin Continue patient's beta pankaj Continue statin Cardiology added Imdur We will continue telemetry Continue to monitor for chest pain DVT Prophylaxis: Heparin drip - Time Spent with Patient Total time spent is greater than 50% in coordination of care (as documented) at patient's floor/unit and/or counseling patient: Internal Medicine: Result - Labs CBC & Chem 7: 01/29/19 00:42 01/29/19 00:42 Labs: Short CBC 01/29/19 Range/Units 00:42 WBC 18.2 H D (4.3-11.1) K/mcL Hgb 12.8 (11.5-15.4) g/dL Hct 41.6 (35.3-44.9) % Plt Count 213 (140-400) K/mcL Neutrophils # 16.0 H (1.6-8.9) K/mcL BMP 01/29/19 00:42 Sodium 135 L Potassium 5.1 Chloride 103 Carbon Dioxide 27 BUN 49 H Creatinine 1.94 H Glucose 192 H Calcium 9.4 Cardiac Enzymes 01/28/19 01/28/19 01/29/19 Range/Units 16:33 22:14 00:42 Troponin I 1.31 H* 1.11 H* 1.19 H* (< 0.04) ng/mL 01/29/19 Range/Units 06:34 Troponin I 0.81 H* (< 0.04) ng/mL - ABG Interpretation ABG results: ABG ABG pH 7.30 pH Units (7.32-7.45) L 01/27/19 12:13 ABG pCO2 57 mmHg (35-45) H 01/27/19 12:13 ABG pO2 39 mmHg (85-104) L* 01/27/19 12:13 ABG O2 Saturation 67 % (95-98) L 01/27/19 12:13 PT/INR, D-dimer PT 10.9 Seconds (9.4-12.1) 01/28/19 12:27 - Impressions Impressions Echocardiogram 01/28/19 11:51 Impressions: LVEF 60%. Indeterminate diastolic function. Normal right ventricular structure and function. Bioprosthetic mitral valve not well visualized. Trace mitral regurgitation. Prosthetic mitral valve MG 6 mmHg at 74 bpm. No significant change in gradients when compared to Echo 09/24/2017. Recommend correlate with type of valve. Mild tricuspid regurgitation. Moderate pulmonary hypertension by TR gradient. Device leads reported by history are not well visualized on this study. Left Ventricular Wall Motion: Rest Echo Findings All wall segments showed normal motion. Findings: Study Quality * Technically adequate exam. * Technical review due to_. ECG Findings * Normal sinus rhythm. Left Ventricle * LVEF 60%. * Indeterminate diastolic function. * Normal LV chamber size, wall thickness and function. Right Ventricle * Normal right ventricular structure and function. Left Atrium * Moderately dilated left atrium. Right Atrium * Normal right atrial size. Mitral Valve * Bioprosthetic mitral valve not well visualized. * Trace mitral regurgitation. * Prosthetic mitral valve MG 6 mmHg at 74 bpm. Aortic Valve * Aortic valve not well visualized. * No aortic regurgitation. * No aortic stenosis. Tricuspid Valve * Tricuspid valve not well visualized. * Mild tricuspid regurgitation. Pulmonic Valve * Pulmonic valve is not well visualized. * No pulmonic stenosis. * No pulmonic regurgitation. Pulmonary Artery * Pulmonary artery not well visualized. Aorta * Normally sized aortic root. Pericardium * There is no pericardial effusion present. Interatrial Septum * Interatrial septum not well evaluated. IVC * The IVC is not well evaluated. Retroperitoneum Ultrasound 01/28/19 20:30 IMPRESSION: Unremarkable ultrasound of the kidneys and urinary bladder. 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 Diabetes mellitus complication status: with kidney complications Diabetes mellitus complication detail: with chronic kidney disease Chronic k idney disease stage: stage 3 (moderate) Qualified Code(s): E11.22 - Type 2 diabetes mellitus with diabetic chronic kidney disease; N18.3 - Chronic kidney disease, stage 3 (moderate); Z79.4 - nursing home (current) use of insulin <Judy Caban - Last Filed: 01/29/19 17:23> (5) Diabetes mellitus Qualifiers: Diabetes mellitus type: type 2 Diabetes mellitus half-way insulin use: with half-way use Diabetes mellitus complication status: with kidney complications Diabetes mellitus complication detail: with chronic kidney disease Chronic kidney disease stage: stage 3 (moderate) Qualified Code(s): E11.22 - Type 2 diabetes mellitus with diabetic chronic kidney disease; N18.3 - Chronic kidney disease, stage 3 (moderate); 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
[2019-01-29] MEDS: Heparin 25,000 UNIT/250 ML D5W 25,000 UNIT/250 ML IV.SOLN IVC SCH (15:23)
[2019-01-29] MEDS ORDERED: Levofloxacin 750 MG/150 ML 750 MG/150 ML BAG IVPB SCH (16:00)
[2019-01-29] MEDS: Levofloxacin 500 MG/100 ML 500 MG/100 ML BAG IVPB SCH (16:08)
[2019-01-29] MEDS: Insulin DETEMIR 100 UNIT/ML X5UNITS SQ SCH (21:09)
[2019-01-30 02:03] LABS: Basophils % 0.2 %; Eosinophils % 0.1 %; Hematocrit 38.3 % (35.3-44.9); Immature Granulocytes % 1.4 % (0-4); Lymphocytes # 0.8 K/mcL (0.6-4.6); Lymphocytes % 7.7 %; Mean Corpuscular HGB Conc 31.3 g/dL (31.6-35.5); Mean Corpuscular Volume 92.5 fL (83.0-100.0); Mean Platelet Volume 10.1 fL (9.4-12.4); Monocytes # 0.6 K/mcL (0.0-1.3); Monocytes % 5.2 %; Platelet Count 223 K/mcL (140-400); Red Blood Count 4.14 M/mcL (3.82-4.97); Red Cell Distribution Width 14.6 % (11.5-14.5); Segmented Neutrophils % 85.4 %
[2019-01-30 02:19] LABS: Calcium 8.5 mg/dL (8.6-10.3); Potassium 4.6 mEq/L (3.5-5.1)
[2019-01-30] MEDS: Aspirin 81 MG TAB.CHEW PO SCH (07:39)
[2019-01-30] MEDS: Metoprolol XL (24 HR) Succ 50 MG TAB.ER.24H PO SCH (07:39)
[2019-01-30] MEDS: predniSONE 20 MG TABLET PO SCH (07:39)
[2019-01-30] MEDS: Isosorbide MONOnitrate (24 HR) 30 MG TAB.ER.24H PO SCH (07:41)
[2019-01-30] MEDS: *HR* Acetylcysteine 20% 600 MG/3 ML ORAL SYRINGE PO SCH ×2 (07:41→21:30)
[2019-01-30] MEDS: Insulin LISPRO 300 UNITS/3 ML VIAL SQ SCH ×3 (07:52→17:46)
--- NOTE | 2019-01-30 10:03 | Event Note ---
Date of Encounter: 01/30/19 Time of Encounter: 10:01 - Cardiology Event Note Plan for LHC today for NSTEMI. Renal function has improved back to patient's baseline. Risks versus benefits of LHC explained to patient who states understanding and agreeable to proceed. Further recs pending LHC.
[2019-01-30] MEDS ORDERED: Nitroglycerin 1,000 MCG/10 ML VIAL IV ONE (10:45)
[2019-01-30] MEDS ORDERED: *HR* Heparin 10,000 UNIT/10 ML VIAL ONE (10:45)
[2019-01-30] MEDS ORDERED: Heparin 1,000 UNITS/500 mL 500 ML ONE (10:45)
[2019-01-30] MEDS ORDERED: ISOVUE-370 200 ML INFUS..BTL ONE (10:45)
[2019-01-30] MEDS ORDERED: 0.9 % Sodium Chloride 1,000 ML ONE ×2 (10:45→11:48)
[2019-01-30] MEDS: Budesonide/Formoterol 160/4.5 1 PUFF INH IH SCH ×2 (10:56→20:38)
--- NOTE | 2019-01-30 10:56 | Pre-Sedation Evaluation ---
Pre-sedation evaluation - Pre-sedation checklist Date of procedure: 01/30/19 Procedure: [facility] Recent Vitals: Last Vital Signs Temp 97.7 F 01/30/19 07:55 Pulse 66 01/30/19 07:55 Resp 16 01/30/19 07:55 BP 150/84 01/30/19 07:55 Pulse Ox 97 01/30/19 07:55 H&P (including ROS) documented in medical record: Yes Previous reaction to sedatives/anesthetics: No Dietary Status: NPO after Midnight Dentition: full dentition ASA Classification *see protocol: CLASS II-Mild systemic disease Plan of Care: Pt appropriate candidate for procedure/moderate/conscious sedation, Risks/benefits of procedure/sedation discussed w/ patient/family Cardiac Registry (Cardio Only) - Functional Capacity Functional Capacity: >=4 METS with symptoms - Clincal Frailty Scale Clinical Frailty Scale: Managing Well
[2019-01-30] MEDS ORDERED: *HR* FentaNYL (PF) 100 MCG/2 ML VIAL ONE (12:05)
[2019-01-30] MEDS ORDERED: *HR* Midazolam HCl 2 MG/2 ML VIAL ONE ×2 (12:05→12:32)
[2019-01-30] MEDS ORDERED: Verapamil 5 MG/2 ML VIAL ONE (12:06)
[2019-01-30] MEDS ORDERED: Tirofiban 12.5 MG/250ML 12.5 MG/250 ML BAG ONE (12:49)
--- NOTE | 2019-01-30 13:16 | Internal Med Progress Note ---
<Mahin Alfaro - Last Filed: 01/30/19 14:48> Hospitalist Progress Note - Encounter Date of Encounter: 01/30/19 Time of Encounter: 14:48 - Exam Vitals: Temp Pulse Resp BP Pulse Ox 97.7 F 66 18 150/84 97 01/30/19 07:55 01/30/19 07:55 01/30/19 10:56 01/30/19 07:55 01/30/19 10:56 - Assessment and Plan (1) HTN (hypertension) Current Visit: No Status: Chronic (2) Acute on chronic diastolic heart failure Current Visit: Yes Status: Acute (3) DVT prophylaxis Current Visit: Yes Status: Acute (4) Acute exacerbation of chronic obstructive airways disease Current Visit: Yes Status: Acute (5) Diabetes mellitus Current Visit: Yes Status: Acute (6) NSTEMI (non-ST elevated myocardial infarction) Current Visit: Yes Status: Acute (7) Acute kidney injury superimposed on CKD Current Visit: Yes Status: Acute - Time Spent with Patient Total time spent is greater than 50% in coordination of care (as documented) at patient's floor/unit and/or counseling patient: Internal Medicine: Result - Labs CBC & Chem 7: 01/30/19 01:50 01/30/19 01:50 Labs: Short CBC 01/30/19 Range/Units 01:50 WBC 10.5 (4.3-11.1) K/mcL Hgb 12.0 (11.5-15.4) g/dL Hct 38.3 (35.3-44.9) % Plt Count 223 (140-400) K/mcL Neutrophils # 9.0 H (1.6-8.9) K/mcL BMP 01/30/19 01:50 Sodium 139 Potassium 4.6 Chloride 105 Carbon Dioxide 27 BUN 46 H Creatinine 1.59 H Glucose 127 H Calcium 8.5 L - ABG Interpretation ABG results: ABG ABG pH 7.30 pH Units (7.32-7.45) L 01/27/19 12:13 ABG pCO2 57 mmHg (35-45) H 01/27/19 12:13 ABG pO2 39 mmHg (85-104) L* 01/27/19 12:13 ABG O2 Saturation 67 % (95-98) L 01/27/19 12:13 PT/INR, D-dimer PT 10.9 Seconds (9.4-12.1) 01/28/19 12:27 Consult Discharge Plan - Plan Referrals: Edgar Nguyen Jr, MD [Primary Care Provider] - - Attending Attestation I saw evaluated and examined this patient and my medical decision-making was reviewed with the Resident Physician, Judy Caban. I agree with the documented findings, disposition and treatment plan as described except to any changes set forth below. We independently had [id number] contact with the patient. Evaluated patient earlier today. She was lying down in bed. Comfortable. Denied any chest pain or palpitations. No nausea or vomiting. Had been nothing by mouth for left heart catheterization. No other acute issues reported overnight. General: Patient is alert, mild distress, obese oriented x 3 ENT: Mucous membranes moist Respiratory: Bilateral end expiratory wheezing Cardiovascular: Regular rate and rhythm. s1 and s2 normal No clicks, rubs, gallops, or murmurs. No pedal edema Abdomen: Abdomen is soft, nontender. Bowel sounds are present Musculoskeletal: Spontaneously moving all extremities Skin: warm, dry, intact. Neuro: Alert oriented x 3 normal cranial nerves, no focal deficits Acute exacerbation of COPD: Improving. Patient currently on 3 L nasal cannula. Continue to taper steroids. Non-ST elevation MN: underwent cardiac catheterization today. Was noted to have severe three-vessel disease and underwent PTCA and drug-eluting stent placement to SVG to RCA and right PDA. Patient currently placed on Aggrastat. Continue aspirin and Plavix Acute on chronic diastolic congestive heart failure: Stable. Appears euvolemic at this time. Diabetes mellitus type 2: Controlled. Resume diabetic diet Chronic kidney disease stage III: Improving. Creatinine 1.59 today. Will monitor renal function post heart catheterization. DVT prophylaxis: Will resume subcutaneous heparin later this evening <Judy Caban E - Last Filed: 01/30/19 16:29> Hospitalist Progress Note - Encounter Date of Encounter: 01/30/19 - Subjective Interval History: Mr. vance is a 78-year-old female who presented to the ED with complaints of cough and shortness of breath for approximately one week. Her chest x-ray on admission showed mild vascular congestion. Patient was started on Levaquin and Solu-Medrol. Troponin I admission was 0.06, increased to 1.31 on January 28 evening, had decreased to 0.81 small morning. Patient is currently on heparin drip. Plans for left heart catheterization tomorrow as her kidney function is improving. She received a left heart catheter today which showed severe three- vessel disease in 2 stents were placed On exam today patient stated that her shortness of breath had improved and that she was no longer coughing up anything. She stated she had not had any more episodes of chest pain she had yesterday. She denies any chest pain, shortness of breath, nausea, vomiting, indigestion, but headedness/dizziness. - Exam Vitals: Temp Pulse Resp BP Pulse Ox 97.7 F 66 18 150/84 97 01/30/19 07:55 01/30/19 07:55 01/30/19 10:56 01/30/19 07:55 01/30/19 10:56 Exam: General: AAO 3, answers questions appropriately, mild distress Head: normocephalic, atraumatic Eyes: CALVIN, no icterus Cardio: RRR, no mumurs, rubs, or gallops Respiratory: CTAB, no wheezing, rhonchi, rales Abd: normal bowel sounds, no gaurding or rigidity Extremties: no pedal edema, pulses equal bilaterally, warm Skin: warm, dry, intact - Assessment and Plan (1) Acute exacerbation of chronic obstructive airways disease Current Visit: Yes Status: Acute Assessment and Plan: She had reported increased cough and sputum production and shortness of breath for approximately one week Home oxygen of 2 L chronically Blood work within normal limits Afebrile and hemodynamically stable Chest x-ray positive for vascular gesture in Respiratory acidosis which seen on the arterial blood gas on admission pH 7.3, CO2 of 57, O2 of 39 We will continue oral steroids, Levaquin, supplemental oxygen Continue Symbicort and bronchodilators (2) Acute kidney injury superimposed on CKD Current Visit: Yes Status: Acute Assessment and Plan: History of CK D stage III baseline creatinine of 1.2-1.6 Acute kidney injury likely from Lasix use and dehydration Creatinine 1.59 today Nephrology is consulted and we will continue to hold Lasix Avoid nephrotoxic agents and renally dose medications Continue monitoring creatinine (3) Acute on chronic diastolic heart failure Current Visit: Yes Status: Acute Assessment and Plan: Chest x-ray showed vascular congestion BNP on admission 92 Patient has known history of diastolic heart failure Lasix in the ED due to kidney function worsening diuretics he further Lasix are currently being held Diuresis if necessary Continue to monitor clinical outlook (4) DVT prophylaxis Current Visit: Yes Status: Acute Assessment and Plan: Subcutaneous heparin starting tomorrow (5) Diabetes mellitus Current Visit: Yes Status: Acute Assessment and Plan: Patient has a history of type 2 diabetes mellitus insulin-dependent Levemir 35 units Medium dose sliding scale insulin Accu-Cheks (6) NSTEMI (non-ST elevated myocardial infarction) Current Visit: Yes Status: Acute Assessment and Plan: Cardiology has been consulted and will be doing a left heart catheter tomorrow She has a history of CABG 2 in 2007 Mitral valve replacement in 2008 Abdominal aortic aneurysm repair in 2016 Pacemaker Troponins have been trending upwards [place] in trending downwards EKG showed a normal sinus rhythm with some mild ST depressions in the anterior leads and no T-wave changes TTE in August 2017 showed LVEF 55%, history of bioprosthetic mitral valve replacement, normal seated [place] prosthetic valve without evidence for stenosis, trace mitral valve regurg, trace tricuspid regurg, mild pulmonary hypertension Left heart catheter in May 2017 showed triple-vessel coronary artery disease status post CABG with 2 patent bypass grafts, EF of 65%, [employer] of proximal RCA, previously stented OM 2. 80% stenosis in the proximal circumflex, 40% in- stent restenosis in the mid circumflex, Patient had left heart catheter which showed severe three-vessel disease and they placed to stents Patient had chest pain yesterday on exam that had been ongoing for approximately 3-4 minutes, this resolved within another 5 minutes without the use of nitroglycerin Continue patient's beta pankaj Continue statin Cardiology added Imdur We will continue telemetry Continue to monitor for chest pain DVT Prophylaxis: Heparin subcutaneous starting tomorrow - Time Spent with Patient Total time spent is greater than 50% in coordination of care (as documented) at patient's floor/unit and/or counseling patient: Internal Medicine: Result - Labs CBC & Chem 7: 01/30/19 01:50 01/30/19 01:50 Labs: Short CBC 01/30/19 Range/Units 01:50 WBC 10.5 (4.3-11.1) K/mcL Hgb 12.0 (11.5-15.4) g/dL Hct 38.3 (35.3-44.9) % Plt Count 223 (140-400) K/mcL Neutrophils # 9.0 H (1.6-8.9) K/mcL BMP 01/30/19 01:50 Sodium 139 Potassium 4.6 Chloride 105 Carbon Dioxide 27 BUN 46 H Creatinine 1.59 H Glucose 127 H Calcium 8.5 L - ABG Interpretation ABG results: ABG ABG pH 7.30 pH Units (7.32-7.45) L 01/27/19 12:13 ABG pCO2 57 mmHg (35-45) H 01/27/19 12:13 ABG pO2 39 mmHg (85-104) L* 01/27/19 12:13 ABG O2 Saturation 67 % (95-98) L 01/27/19 12:13 PT/INR, D-dimer PT 10.9 Seconds (9.4-12.1) 01/28/19 12:27 <Mahin Alfaro - Last Filed: 01/30/19 14:48> (1) HTN (hypertension) Qualifiers: Hypertension type: essential hypertension Qualified Code(s): I10 - Essential (primary) hypertension (5) Diabetes mellitus Qualifiers: Diabetes mellitus type: type 2 Diabetes mellitus nursing home insulin use: with nursing home use Diabetes mellitus complication status: with kidney complications Diabetes mellitus complication detail: with chronic kidney disease Chronic kidney disease stage: stage 3 (moderate) Qualified Code(s): E11.22 - Type 2 diabetes mellitus with diabetic chronic kidney disease; N18.3 - Chronic kidney disease, stage 3 (moderate); Z79.4 - senior care (current) use of insulin <Judy Caban - Last Filed: 01/30/19 16:29> (5) Diabetes mellitus Qualifiers: Diabetes mellitus type: type 2 Diabetes mellitus mixer whipped topping insulin use: with mixer whipped topping use Diabetes mellitus complication status: with kidney complications Diabetes mellitus complication detail: with chronic kidney disease Chronic kidney disease stage: stage 3 (moderate) Qualified Code(s): E11.22 - Type 2 diabetes mellitus with diabetic chronic kidney disease; N18.3 - Chronic kidney disease, stage 3 (moderate); Z79.4 - senior care (current) use of insulin
--- NOTE | 2019-01-30 13:43 | Invasive Diagnostic Lab Proc ---
Name: Delores Florez Date of Study: 01/30/2019 Date: 1940 Ht: 64.2in Medical Record#: [id number] Age: 78 Wt: 211.64lb Gender: Female BSA: 2.01 Order #: [id number] BMI: 36.13 Physicians Procedure Physician: David Dobbins MD, FACC Referring MD: Referring MD: Staff Name Position Time In Delmi Salguero RT (R) Monitor 12:09 PM Tommie Thornton RN Rn Lpn Lvn 12:09 PM Nlis Gordon RT (R) Scrub 12:09 PM China Paul RN Monitor 01:11 PM Marycruz Banda RT (R) 01:00 PM Procedures Performed Procedure L HRT ART/GRFT ANGIO PRQ REVASC BYP GRAFT 1 VSL PRQ CARD STENT W/ANGIO ADDL Pre-Procedure Checklist Informed consent is complete signed and on chart. H&P is on chart. ID band is on and ID verified with patient. Patient NPO for procedure The procedure was described for the patient and questions were answered. Blood Pressure: 142/71 ECG is on chart. Rhythm: NSR Plan of Care Patient will tolerate the procedure without complications. Adequate level of comfort will be maintained. Hemodynamics will remain stable Patient will recover from procedure without complications. Respiratory function will be maintained. Cardiac rhythm will remain stable. Patient temperature will be maintained. Patient and/or family have verbalized understanding of the procedure. Patient Education Chief Complaint/Reason for Test: Cardiac Cath Developmental Category: Geriatric (65+ years) Developmentally Appropriate for Age: Yes Learning Barriers: None Education Needs: Procedure Education Method: Verbal Information Taught: Cardiac Cath Educational Evaluation: Able to repeat information Intravenous Access Time IV Size Location DC'd Fluid/Drip Rate Units RN 10:13 AM 20g 1 1/4" Patent On Arrival Rt Arm 0.9NaCl 25 ml/hr Allergies morphine propoxyphene acetaminophen codeine Vital Signs Time BP (mmHg) HR (bpm) O2 Sat. RR (bpm) LOC 12:10 PM 142 / 71 61 94 % 16 4 = Oriented but drowsy 12:10 PM / % 4 = Oriented but drowsy 12:25 PM / % 4 = Oriented but drowsy 12:40 PM / % 4 = Oriented but drowsy 12:55 PM / % 4 = Oriented but drowsy 12:05 PM 160 / 89 63 96 % 15 12:10 PM 142 / 71 61 92 % 12:15 PM 144 / 69 60 95 % 12:20 PM 142 / 78 60 95 % 25 12:25 PM 149 / 73 60 96 % 23 12:30 PM 126 / 62 60 94 % 27 12:35 PM 135 / 58 61 91 % 18 12:40 PM 126 / 64 61 93 % 12:45 PM 133 / 57 60 95 % 28 12:50 PM 134 / 66 60 95 % 25 12:55 PM 136 / 61 60 94 % 11 01:00 PM 141 / 71 60 95 % 01:05 PM 144 / 70 60 95 % 30 01:10 PM 147 / 76 60 96 % 20 01:15 PM 146 / 67 60 95 % 01:20 PM 156 / 70 60 96 % 22 01:25 PM 165 / 79 60 97 % 13 01:30 PM 141 / 66 60 97 % 16 Procedural Medications Time Medication Dose Units Method Given By 12:10 PM Oxygen 2 L/min nasal cannula Tommie Thornton RN 12:10 PM Versed 2 mg Intravenous Tommie Thornton RN 12:10 PM Fentanyl 50 mcg Intravenous Tommie Thornton RN 12:20 PM Lidocaine 2% 0.5 ml Subcutaneous David Dobbins MD, FACC 12:26 PM Heparin 2000 units Nitroglycerin 200 mcg Verapamil 2.5 mg Intraarterial David Dobbins MD, FACC 12:32 PM Versed 1 mg Intravenous Tommie Thornton RN 12:32 PM Fentanyl 25 mcg Intravenous Tommie Thornton RN 12:32 PM Lidocaine 2% 19.5 ml Subcutaneous David Dobbins MD, FACC 12:53 PM Aggrastat Bolus: 50 ml Tommie Thornton RN 12:53 PM Aggrastat 12.5mg/250ml 9 ml Tommie Thornton RN 01:02 PM Heparin 2000 units Intravenous Tommie Thornton RN ASA Classification: CLASS II- Mild systemic disease (i.e. well-controlled diabetes, hypertension, asthma, cigarette smoking) Peyton Score Preprocedure Postprocedure Activity 2- Moves 4 extremities sustained head lift Activity 2- Moves 4 extremities sustained head lift Circulation 2- SBP +/= 20 points of pre-anesthetic level Circulation 2- SBP +/= 20 points of pre-anesthetic level Consciousness 2- Awake and alert oriented x 3 Consciousness 2- Awake and alert oriented x 3 O2 Saturation 2- Able to maintain O2 satruation of 92% on room air O2 Saturation 2- Able to maintain O2 satruation of 92% on room air Respiratory 2- Able to deep breathe and cough well Respiratory 2- Able to deep breathe and cough well Total Score 10 Total Score 10 Contrast Agent: Isovue Diagnostic Contrast: 96 ml Total Contrast: 96 ml Fluoro Dose: 50 mGy Activated Clotting Time Time Seconds to Clot 01:02 PM 188 Procedure Log Time Note Enter By 12:04 PM CathStat 12:04 PM Vitals capture started with the following parameters, Patient=Adult, Interval=5 min, Initial Sqeysbki=858 mmHg, Deflation Rate=5 mmHg, Cuff placed on Left Arm 12:05 PM HR=63 bpm, SCQZ=432/89 mmhg, SpO2=96.0 %, Resp=15 B/min, Comment=SR 12:08 PM [email or web address] Delmi Salguero RT (R) Position: Monitor Time in: 12: [email or web address] 12[facility]09 PM Tommie Thornton RN Position: Rn Lpn Lvn Time in: 12: [email or web address] 12:09 PM Nils Gordon RT (R) Position: Scrub Time in: 12:09 [email or web address] 12:09 PM Patient charges- Angio tray pack, Navilyst 3mm J, Pulse Oximetry and ACIST tubing and transducer [email or web address] 12:09 PM Case Delayed No [email or web address] 12:10 PM Hair removed from procedure site in holding area using clippers. Right wrist and Right groin prepped with Chloraprep by Delmi Salguero RT (R), then patient was draped. Skin intact. [email or web address] 12:10 PM Physician arrived 12:10 [email or web address] 12:10 PM Herbert and janet completed [email or web address] 12:10 PM ASA Class CLASS II- Mild systemic disease (i.e. well-controlled diabetes, hypertension, asthma, cigarette smoking) [email or web address] 12:10 PM Sign in performed according to hospital policy. Informed consent was obtained. [email or web address] 12:10 PM HR=61 bpm, BHZP=462/71 mmhg, SpO2=92.0 %, Comment=SR 12:10 PM Procedure start 12:10 [email or web address] 12:10 PM Time: 12:10 Oxygen on at 2 L/min per nasal cannula by Tommie Thornton RN [email or web address] 12:10 PM Time: 12:10 Versed 2 mg Intravenous Given by Tommie Thornton RN [email or web address] 12:10 PM Time: 12:10 Fentanyl 50 mcg Intravenous Given by Tommie Thornton RN [email or web address] 12:10 PM Time: 12:10 Patient comfortable and pain free: Yes [email or web address] 12:10 PM Time: 12:10LOC: 4 = Oriented but drowsy [email or web address] 12:11 PM Recorded ECG: HR=60 Condition=Condition 1 12:11 PM Pressure channel 1 zeroed. 12:15 PM HR=60 bpm, FOIN=207/69 mmhg, SpO2=95.0 %, Comment=SR 12:19 PM Time out was performed according to hospital policy. Conscious sedation and anesthesia was achieved (see medication log with in this report above) [email or web address] 12:20 PM HR=60 bpm, GPRU=809/78 mmhg, SpO2=95.0 %, Resp=25 B/min, Comment=SR 12:20 PM Time: 12:20 0.5 ml Lidocaine 2% to right radial Subcutaneous Given by David Dobbins MD, [facility] [email or web address] 12:22 PM Unsuccessful access attempt # 1 into the right Radial artery. Manual pressure applied to achieve hemostasis.. [email or web address] 12:23 PM Access obtained by percutaneous puncture. 6Fr 10cm Terumo [place] sheath placed in right Radial artery. [id number] [email or web address] 12:25 PM HR=60 bpm, LDYT=554/73 mmhg, SpO2=96.0 %, Resp=23 B/min, Comment=SR 12:25 PM Time: 12:10 Patient comfortable and pain free: Yes [email or web address] 12:25 PM Time: 12:10LOC: 4 = Oriented but drowsy [email or web address] 12:26 PM Time: 12:26 Patient given 2,000 units Heparin, 200 mcg Nitroglycerin, and 2.5 mg Verapamil Intraarterial by David Dobbins MD, [facility]. This is given to reduce risk of vessel spasm and thrombosis. [email or web address] 12:26 PM 0.035 260cm Navilyst 3mmJ wire [id number] [email or web address] 12:26 PM 5Fr TIG catheter inserted over the wire [facility] [email or web address] 12:30 PM HR=60 bpm, ADYX=711/62 mmhg, SpO2=94.0 %, Resp=27 B/min, Comment=SR 12:30 PM Catheter removed [email or web address] 12:30 PM Wire removed [email or web address] 12:32 PM Time: 12:32 Versed 1 mg Intravenous Given by Tommie Thornton RN [email or web address] 12:32 PM Time: 12:32 Fentanyl 25 mcg Intravenous Given by Tommie Thornton RN [email or web address] 12:32 PM Time: 12:32 19.5 ml Lidocaine 2% to right groin Subcutaneous Given by David Dobbins MD, [facility] [email or web address] 12:34 PM Access obtained by percutaneous puncture. 5Fr 10cm Terumo [place] sheath placed in right Femoral artery. [id number] [email or web address] 12:34 PM 0.035 145cm Navilyst 3mmJ wire [id number] [email or web address] 12:34 PM 5Fr FR 4 catheter inserted over the wire [facility] [email or web address] 12:35 PM Recorded Pressure: LV, HR=62, Condition=Condition 1 (Left Ventricle) LV 116/-8/10 12:35 PM HR=61 bpm, RJMH=770/58 mmhg, SpO2=91.0 %, Resp=18 B/min, Comment=SR 12:35 PM Recorded Pressure: LV, Ao, HR=61, Condition=Condition 1 (Left Ventricle) LV 112/-11/9, (Aorta) Ao 112/50/76 12:36 PM Catheter crossed the aortic valve and was selectively placed in the left ventricle. Pressures recorded on pullback for left heart catheterization. [email or web address] 12:36 PM Catheter repositioned for RCA. [email or web address] 12:36 PM RCA angiography performed in multiple views. [email or web address] 12:37 PM Lesion found in Proximal RCA. Pre Stenosis: 99 Pre MICHAEL Flow: 2: Partial Flow/Perfusion (> 1 but < 3) [email or web address] 12:37 PM Lesion found in Mid RCA. Pre Stenosis: 100 Pre MICHAEL Flow: 0: No Flow/No perfusion [email or web address] 12:37 PM SVG to the RPDA angio performed in multiple views. [email or web address] 12:38 PM Lesion found in Right PDA. Pre Stenosis: 95 Pre MICHAEL Flow: 3: Complete and Brisk Flow/Perfusion [email or web address] 12:38 PM Catheter repositioned for PICKETT. [email or web address] 12:38 PM Catheter removed [email or web address] 12:38 PM 5Fr IM catheter inserted over the wire [id number] [email or web address] 12:39 PM Left CHARLIE to the LAD angio performed in multiple views. [email or web address] 12:40 PM HR=61 bpm, TPBO=384/64 mmhg, SpO2=93.0 %, Comment=SR 12:40 PM Recorded Pressure: Ao, HR=61, Condition=Condition 1 (Aorta) Ao 106/61/83 12:40 PM Time: 12:25 Patient comfortable and pain free: Yes [email or web address] 12:40 PM Time: 12:25LOC: 4 = Oriented but drowsy [email or web address] 12:41 PM Catheter removed [email or web address] 12:41 PM 5Fr FL 4 catheter inserted over the wire DNC [email or web address] 12:41 PM Lesion found in Mid LAD. Pre Stenosis: 90 Pre MICHAEL Flow: 3: Complete and Brisk Flow/Perfusion [email or web address] 12:41 PM LCA angiography performed in multiple views. [email or web address] 12:42 PM Recorded Pressure: Ao, HR=61, Condition=Condition 1 (Aorta) Ao 104/55/78 12:43 PM Lesion found in Proximal LAD. Pre Stenosis: 90 Pre MICHAEL Flow: 3: Complete and Brisk Flow/Perfusion [email or web address] 12:45 PM HR=60 bpm, LYLE=640/57 mmhg, SpO2=95.0 %, Resp=28 B/min, Comment=SR 12:45 PM Lesion found in Proximal LMCA. Pre Stenosis: 50 Pre MICHAEL Flow: 3: Complete and Brisk Flow/Perfusion [email or web address] 12:46 PM Lesion found in Mid LMCA. Pre Stenosis: 50 Pre MICHAEL Flow: 3: Complete and Brisk Flow/Perfusion [email or web address] 12:46 PM Lesion found in Distal LMCA. Pre Stenosis: 50 Pre MICHAEL Flow: 3: Complete and Brisk Flow/Perfusion [email or web address] 12:46 PM Lesion found in 1st Diagonal. Pre Stenosis: 90 Pre MICHAEL Flow: 3: Complete and Brisk Flow/Perfusion [email or web address] 12:46 PM Lesion found in Proximal Circumflex. Pre Stenosis: 70 Pre MICHAEL Flow: 3: Complete and Brisk Flow/Perfusion [email or web address] 12:47 PM Lesion found in Mid Circumflex. Pre Stenosis: 99 Pre MICHAEL Flow: 2: Partial Flow/Perfusion (> 1 but < 3) [email or web address] 12:47 PM Lesion found in Right PDA. Pre Stenosis: 90 Pre MICHAEL Flow: 3: Complete and Brisk Flow/Perfusion [email or web address] 12:48 PM 5Fr FR 4 catheter inserted over the wire [facility] [email or web address] 12:49 PM Sheath exchanged for a 6 Fr 11 cm Cordis Radha sheath [id number] [email or web address] 12:49 PM Catheter removed [email or web address] 12:50 PM 6Fr JR 4 Runway guide catheter was used to cannulate the PCI vessel successfully. reused? No [email or web address] 12:50 PM HR=60 bpm, GTXD=966/66 mmhg, SpO2=95.0 %, Resp=25 B/min, Comment=SR 12:50 PM Inflation device was opened. [email or web address] 12:52 PM Filter wire inserted to target lesion. [email or web address] 12:53 PM Time: 12:53 Aggrastat Bolus: 50 ml Given by Tommie Thornton RN Gray pump [email or web address] 12:53 PM Time: 12:53 Aggrastat 12.5mg/250ml 9 ml Given by Tommie Thornton RN [employer] pump [email or web address] 12:55 PM HR=60 bpm, MCRJ=516/61 mmhg, SpO2=94.0 %, Resp=11 B/min, Comment=SR 12:55 PM Time: 12:40 Patient comfortable and pain free: Yes [email or web address] 12:55 PM Time: 12:40LOC: 4 = Oriented but drowsy [email or web address] 01:00 PM HR=60 bpm, ATMD=328/71 mmhg, SpO2=95.0 %, Comment=SR 01:00 PM [facility], Marycruz RT (R) Position: Time in: 13:00 [email or web address] 01:01 PM 4.0mm x 16mm Synergy drug-eluting stent across target lesion- successful Lot #[id number] [email or web address] 01:02 PM Stent deployed @ 14 niya for 17 seconds [email or web address] 01:02 PM At 13:02 the ACT was 188 seconds. [email or web address] 01:03 PM Time: 13:02 Heparin 2000 units Intravenous Given by Tommie Thornton RN [email or web address] 01:03 PM Stent delivery system removed intact. [email or web address] 01:04 PM 4.5 mm x 15mm NC Emerge balloon across target lesion- successful. reused? No [email or web address] 01:05 PM HR=60 bpm, LKNE=532/70 mmhg, SpO2=95.0 %, Resp=30 B/min, Comment=SR 01:05 PM Balloon inflated @ 13 niya for 18 seconds [email or web address] 01:05 PM Balloon catheter removed intact. [email or web address] 01:07 PM Recorded Pressure: Ao, HR=60, Condition=Condition 1 (Aorta) Ao 124/69/94 01:08 PM Filter wire retrieved. [email or web address] 01:10 PM HR=60 bpm, WEDJ=704/76 mmhg, SpO2=96.0 %, Resp=20 B/min, Comment=SR 01:10 PM Time: 12:55LOC: 4 = Oriented but drowsy [email or web address] 01:11 PM Time: 12:55 Patient comfortable and pain free: Yes [email or web address] 01:11 PM .014 PT Graphix 182cm guide wire across target lesion- successful. reused? No [email or web address] 01:11 PM China Paul RN Position: Monitor Time in: 13:11 to relieve Delmi Salguero RT (R) [email or web address] 01:14 PM 2.0 mm x 15 mm Emerge Monorail balloon across target lesion- successful. reused? No [email or web address] 01:14 PM Balloon inflated @ 8 niya for 14 seconds [email or web address] 01:14 PM Balloon inflated @ 8 niya for 9 seconds [email or web address] 01:15 PM HR=60 bpm, OPZG=829/67 mmhg, SpO2=95.0 % 01:15 PM Balloon catheter removed intact. [email or web address] 01:17 PM 2.25mm x 20mm Synergy drug-eluting stent across target lesion- successful Lot #[id number] [email or web address] 01:17 PM Stent deployed @ 11 niya for 16 seconds [email or web address] 01:18 PM Stent delivery system removed intact. [email or web address] 01:18 PM 2.25 mm x 12mm NC Trek Rx balloon across target lesion- successful. reused? No [email or web address] 01:19 PM Balloon inflated @ 16 niya for 14 seconds [email or web address] 01:20 PM Recorded Pressure: Ao, HR=61, Condition=Condition 1 (Aorta) Ao 129/71/97 01:20 PM HR=60 bpm, FCMG=906/70 mmhg, SpO2=96.0 %, Resp=22 B/min 01:20 PM Balloon inflated @ 16 niya for 10 seconds [email or web address] 01:21 PM Balloon catheter removed intact. [email or web address] 01:21 PM Guide wire removed intact. [email or web address] 01:21 PM Guide wire removed intact. [email or web address] 01:22 PM Guide catheter removed intact. [email or web address] 01:22 PM Bolus angiogram of right Femoral complete: 4 ml/sec for a total of 7 mls [email or web address] 01:22 PM Procedure completed at 13:22 01/30/2019 [email or web address] :22 PM Did you address MICHAEL flow and Dominance? Yes [email or web address] 01:23 PM Sign out completed: Radiation Dose 431.87 mGy, 49.6 Gy/cm2 Fluoro Time: 14.8 Isovue 370 - 200ml contrast 96 ml given by David Dobbins MD, FACC. Complications: None. 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 Sedation minutes 73. Cardiac Rehab Consult needed: Yes. Confirmed administered medications: Yes [email or web address] 01:23 PM Isovue 370 - 200ml,1 Bottle(s) used. [email or web address] 01:23 PM Arterial sheath pulled, Mynx closure device used and was Successful [id number] S/N. [email or web address] 01:23 PM Estimated Blood Loss: less than 50cc [email or web address] 01:23 PM Post ECG Sinus Bradycardia [email or web address] 01:23 PM Post Blood Pressure 156/70 [email or web address] 01:24 PM Information taught Cardiac Cath, PCI, and Mynx [email or web address] 01:24 PM Education needs Procedure, Plan of Care, and Responsibilities of Patient in Care [email or web address] 01:24 PM Learning barriers :None [email or web address] 01:24 PM Education Methods Verbal [email or web address] 01:24 PM Education evaluation Able to repeat information [email or web address] 01:24 PM Plavix, Effient or Brilinta given No- administered this am on per floor nurse. [email or web address] 01:24 PM Family placed in consult room. [email or web address] 01:24 PM Complications: None [email or web address] 01:25 PM HR=60 bpm, DJXY=560/79 mmhg, SpO2=97.0 %, Resp=13 B/min 01:26 PM Site status No bleeding/hematoma - Rt Groin as reported by Nils Gordon RT (R) at 13:26 [email or web address] 01:26 PM Opsite applied [email or web address] 01:29 PM Report given to Negin CAMPBELL Pt taken to 3B Room #33. 13:29 [email or web address] 01:30 PM HR=60 bpm, VAUP=411/66 mmhg, SpO2=97.0 %, Resp=16 B/min 01:31 PM 10 ml air in Vasc Band. [email or web address] 01:33 PM Patient out of room: 13:33 [email or web address] 01:34 PM Vitals capture stopped. Complications Complication None Hemodynamics Pressures Site Systolic/A Wave Diastolic/V Wave Mean LV 116 -8 10 AO 106 61 83 AO 104 55 78 AO 124 69 94 AO 129 71 97 LV 112 -11 9 AO 112 50 76 Post Procedure Information Blood Pressure: 156/70 mmHg Rhythm: Sinus Bradycardia Post procedural instructions were given Closure Device Time Device Success/Fail 01/30/2019 1:26:00 PM MynxGrip Successful 01/30/2019 1:31:00 PM Mechanical Compression Successful Site Checks Time Location Status Staff Sheath In? Note 01:26 PM Rt Groin No bleeding/hematoma Nils Gordon RT (R) Pulses Time Site Pre-Procedure Post-Procedure Note 01/30/2019 10:14:00 AM Bilateral DP 2+ 01/30/2019 10:14:00 AM Bilateral radial 2+ Updated by Delmi Salguero RT(R) on 01/30/2019 1:36:04 PM electronically signed on 01/30/2019 1:36:39 PM with status of Final
[2019-01-30] MEDS ORDERED: Tirofiban 12.5 MG/250ML 12.5 MG/250 ML BAG IVC SCH (14:00)
[2019-01-30] MEDS: Insulin DETEMIR 100 UNIT/ML X5UNITS SQ SCH (20:30)
[2019-01-30 20:54] LABS: Hematocrit 39.5 % (35.3-44.9); Hemoglobin 12.4 g/dL (11.5-15.4)
[2019-01-30] MEDS: Heparin 25,000 UNIT/250 ML D5W 25,000 UNIT/250 ML IV.SOLN IVC SCH (21:43)
[2019-01-30] MEDS: Levofloxacin 750 MG/150 ML 750 MG/150 ML BAG IVPB SCH (21:43)
--- NOTE | 2019-01-30 22:50 | Nephrology Progress Note ---
Date of Encounter: 01/30/19 Time of Encounter: 16:00 - Assessment and Plan (1) Acute worsening of stage 3 chronic kidney disease Current Visit: No Status: Acute SCr back at baseline at 1.59, GFR 31 UOP noted at 650cc in the past 24hrs Continue to avoid nephrotoxins if possible. Pt aware of the risk/benefit of contrast exposure with [facility] (2) NSTEMI (non-ST elevated myocardial infarction) Current Visit: Yes Status: Acute Per cardiology s/p [facility] Subjective Principal diagnosis: COPD exacerbation, NSTEMI Interval history: Interim events noted. [facility] today Objective - Vital Signs Vital signs: Vital Signs Temp Pulse Resp BP Pulse Ox 01/30/19 20:39 20 97 01/30/19 19:04 98.3 F 64 18 106/61 01/30/19 17:02 97.8 F 61 14 143/77 98 01/30/19 16:01 97.9 F 62 17 164/79 94 01/30/19 14:55 60 16 149/76 95 01/30/19 14:40 62 16 133/78 95 01/30/19 14:25 97.7 F 64 16 145/81 93 01/30/19 14:10 61 14 132/64 97 01/30/19 13:55 97.9 F 61 16 130/73 95 01/30/19 10:56 18 97 01/30/19 07:55 97.7 F 66 16 150/84 97 01/30/19 04:43 97.7 F 72 15 161/75 90 01/29/19 23:03 97.6 F 61 16 137/80 98 Intake and Output 01/30/19 01/30/19 01/30/19 07:59 15:59 23:59 Intake Total 99 / 1411 1312 / 1411 Output Total 300 / 300 Balance -201 / 1111 1312 / 1111 Intake: IV Fluids 99 / 1411 1312 / 1411 0.9 % Sodium Chloride 1,000 ML 1000 / 1000 @ 100 mls/hr IVC .Q10H [facility] Rx#: [id number] Heparin 25,000 UNIT/250 ML D5W 99 / 161 62 / 161 25,000 unit In 250 ml @ 10 UNITS/KG/HR 9.62 mls/hr IVC . Q24H [facility] Rx#:[id number] Levaquin Premix 500mg/100mL 500 100 / 100 mg In 100 ml @ 100 mls/hr IVPB Q48H [facility] Rx#:[id number] Levaquin Premix 750mg/150 mL 150 / 150 750 mg In 150 ml @ 100 mls/hr IVPB Q48H [facility] Rx#:[id number] Output: Urine 300 / 300 Other: Stool Size Small Stool Consistency loose Stool Characteristics Normal for Patient Stool Color Brown # Voids 1 Weight 96.3 kg Blood Glucose* 101 208 Patient Weight 01/30/19 23:59 Weight 96.3 kg - Lab 01/30/19 20:35 01/30/19 01:50 Consult Discharge Plan - Plan Referrals: Edgar Nguyen Jr, MD [Primary Care Provider] -
[2019-01-31 05:24] LABS: Basophils % 0.2 %; Eosinophils % 0.3 %; Hematocrit 39.6 % (35.3-44.9); Hemoglobin 12.2 g/dL (11.5-15.4); Immature Granulocytes % 0.9 % (0-4); Lymphocytes # 1.1 K/mcL (0.6-4.6); Lymphocytes % 10.1 %; Mean Corpuscular HGB Conc 30.8 g/dL (31.6-35.5); Mean Corpuscular Hemoglobin 29.2 pg (28.0-33.3); Mean Corpuscular Volume 94.7 fL (83.0-100.0); Mean Platelet Volume 9.8 fL (9.4-12.4); Monocytes # 0.5 K/mcL (0.0-1.3); Monocytes % 4.7 %; Neutrophils # 8.8 K/mcL (1.6-8.9); Platelet Count 195 K/mcL (140-400); Red Blood Count 4.18 M/mcL (3.82-4.97); Red Cell Distribution Width 14.6 % (11.5-14.5); Segmented Neutrophils % 83.8 %
[2019-01-31 05:44] LABS: Calcium 8.7 mg/dL (8.6-10.3); Potassium 4.2 mEq/L (3.5-5.1)
[2019-01-31] MEDS: Insulin LISPRO 300 UNITS/3 ML VIAL SQ SCH ×3 (07:41→17:09)
[2019-01-31] MEDS ORDERED: Acetaminophen 325 MG TABLET PO PRN (08:02)
[2019-01-31] MEDS: *HR* Heparin 5,000 UNIT/ML VIAL SQ SCH ×2 (08:52→17:10)
[2019-01-31] MEDS ORDERED: *HR* Promethazine 25 MG/ML VIAL IVP ONE (08:56)
[2019-01-31] MEDS: Budesonide/Formoterol 160/4.5 1 PUFF INH IH SCH ×2 (10:14→19:47)
[2019-01-31] MEDS: Metoprolol XL (24 HR) Succ 50 MG TAB.ER.24H PO SCH (10:58)
[2019-01-31] MEDS: Isosorbide MONOnitrate (24 HR) 30 MG TAB.ER.24H PO SCH (10:58)
[2019-01-31] MEDS: *HR* Acetylcysteine 20% 600 MG/3 ML ORAL SYRINGE PO SCH ×2 (10:58→21:29)
[2019-01-31] MEDS: Aspirin 81 MG TAB.CHEW PO SCH (10:58)
[2019-01-31] MEDS: predniSONE 20 MG TABLET PO SCH (10:58)
--- NOTE | 2019-01-31 12:12 | Cardiology Progress Note ---
Date of Encounter: 01/31/19 Time of Encounter: 10:20 Assessment and Plan (1) NSTEMI (non-ST elevated myocardial infarction) Current Visit: Yes Status: Acute Per cardiology: -Presenting with complaints of cough and shortness of breath of 1 week duration. H/o CABG and PCI. -Troponins 0.06, 0.75, 1.20, 1.31, 0.87 in setting of THERESE and COPD exacerbation. ECG with diffuse ST flattening. -TTE 08/2017: LVEF 55%. History of bioprosthetic mitral valve replacement. Normal seated bioprosthetic valve without evidence for stenosis. There is trace mitral valve regurgitation. Mild TR. Mild phtn. -TTE this admission with LVEF 60%. Indeterminate diastolic function. Bioprosthetic mitral valve not well visualized. Trace mitral regurgitation. Prosthetic mitral valve MG 6 mmHg at 74 bpm. No significant change in gradients when compared to Echo 09/24/2017. Mild tricuspid regurgitation. Moderate pulmonary hypertension by TR gradient. All wall segments showed normal motion. -[facility] 06/14/17: Triple vessel coronary artery disease. S/P CABG 2 of 2 patent bypass grafts. EF 65%. SPINDLE TESTER of proximal RCA, previously stented OM2. There is a 50% stenosis in the Proximal Circumflex. There is a 40% instent restenosis in the Mid Circumflex. NSTEMI. [facility] completed yesterday. She received PCI to the PDA ad SVG -PDA. PICKETT to LAD patent. Severe LAD and LCx disease seen. Collaterals from LAD to LCx artery. Medical management recommended. If recurrent symptoms at out-pt visit consider staged PCI. Importance of DAPT uninterrupted reviewed with patient. Cardiac rehab. ASA, Plavix, BB, Statin, imdur. (2) CAD (coronary artery disease) Current Visit: No Status: Chronic See plan above. History of CABG and PCI. Qualifiers: Coronary Disease-Associated Artery/Lesion type: [place] artery [place] vs. transplanted heart: [place] heart Associated angina: without angina Qualified Code(s): I25.10 - Atherosclerotic heart disease of [place] coronary artery without angina pectoris (3) COPD exacerbation Current Visit: No Status: Acute Management per primary team. Noted to be SOB and wheezing. Primary team aware per nurse. Breathing treatments ordered. (4) CHF exacerbation Current Visit: Yes Status: Acute Mild vascular congestion noted on CXR. TTE shows preserved EF. Noted to have dyspnea at rest. Also with COPD exacerbation. Will give IV lasix x1. Repeat as needed. Strict I&O and daily weights. Qualifiers: Heart failure type: diastolic Qualified Code(s): I50.33 - Acute on chronic diastolic (congestive) heart failure Discussion w patient/family: The assessment and plan as outlined above was discussed with the patient and/or family members who expressed understanding and agreement. All questions were answered. Thank you for involving us in the care of your patient. Please call with any questions. Subjective Principal diagnosis: COPD exacerbation, NSTEMI Interval history: S/p LHC with no complication. Pt drowsy on my exam. Noted to have wheezing and SOB. Nurse notified. Breathing treatments ordered. Objective Vital Signs, Last 4 Hours Temp Pulse Resp BP Pulse Ox 01/31/19 11:02 98.0 F 76 20 137/72 97 General: Other (Respirations labored. Drowsy.) Neck: No JVD, Normal carotid pulses Cardiac: Reg Rate and Rhythm, Normal S1 and S2, No Murmur Lungs: Other (Wheezes scattered through-out) Neuro: Alert and responsive, No focal deficits noted Abdomen: Soft, Non-Tender Skin: No rashes noted on visualized skin Musculoskeletal: No Chest Wall Tenderness Extremities: No Clubbing, No Cyanosis, No Edema, Normal Pulses, Other (Right femoral with ecchymosis, no hematoma.) Results 01/31/19 05:05 01/31/19 05:05 Lab Results 01/30/19 01/31/19 01/31/19 20:35 05:05 05:05 WBC 10.5 Hgb 12.4 12.2 Hct 39.5 39.6 Plt Count 195 Sodium 138 Potassium 4.2 Chloride 105 Carbon Dioxide 27 BUN 38 H Creatinine 1.45 H Glucose 94 Calcium 8.7 - Imaging and Cardiology Echo: report reviewed Cardiac cath: report reviewed - EKG Interpretation EKG results cardiology: personally reviewed Consult Discharge Plan - Plan Referrals: Edgar Nguyen Jr, MD [Primary Care Provider] -
--- NOTE | 2019-01-31 12:13 | Nephrology Progress Note ---
Date of Encounter: 01/31/19 Time of Encounter: 12:00 - Assessment and Plan (1) Acute worsening of stage 3 chronic kidney disease Current Visit: No Status: Acute (2) NSTEMI (non-ST elevated myocardial infarction) Current Visit: Yes Status: Acute Subjective Principal diagnosis: COPD exacerbation, NSTEMI Interval history: Interim events noted. [facility] today Objective - Vital Signs Vital signs: Vital Signs Temp Pulse Resp BP Pulse Ox 01/31/19 11:02 98.0 F 76 20 137/72 97 01/31/19 07:27 98.3 F 78 22 170/67 94 01/31/19 03:34 98.1 F 62 18 150/78 98 01/30/19 23:17 98.3 F 61 19 132/84 98 01/30/19 20:39 20 97 01/30/19 19:04 98.3 F 64 18 106/61 01/30/19 17:02 97.8 F 61 14 143/77 98 01/30/19 16:01 97.9 F 62 17 164/79 94 01/30/19 14:55 60 16 149/76 95 01/30/19 14:40 62 16 133/78 95 01/30/19 14:25 97.7 F 64 16 145/81 93 01/30/19 14:10 61 14 132/64 97 01/30/19 13:55 97.9 F 61 16 130/73 95 Intake and Output 01/30/19 01/31/19 01/31/19 23:59 07:59 15:59 Other: Weight 98.9 kg Blood Glucose* 208 95 87 Patient Weight 01/31/19 23:59 Weight 98.9 kg - Lab 01/31/19 05:05 01/31/19 05:05 Most recent lab results 01/31/19 05:05 Calcium 8.7 Consult Discharge Plan - Plan Referrals: Edgar Nguyen Jr, MD [Primary Care Provider] -
[2019-01-31] MEDS ORDERED: Furosemide 20 MG/2 ML VIAL IVP ONE (12:23)
--- NOTE | 2019-01-31 12:58 | Internal Med Progress Note ---
Hospitalist Progress Note - Encounter Date of Encounter: 01/31/19 Time of Encounter: 12:57 - Subjective Interval History: Evaluated patient earlier today. She was complaining of a headache and nausea along with lower back pain. Denied any dizziness or lightheadedness. No fevers or chills. No hematuria or melena. She reports that her symptoms are not similar to the time when she had UTI. - Exam Vitals: Temp Pulse Resp BP Pulse Ox 98.0 F 76 20 137/72 97 01/31/19 11:02 01/31/19 11:02 01/31/19 11:02 01/31/19 11:02 01/31/19 11:02 Exam: General: Patient is alert, mild distress, oriented x 3, obese ENT: Mucous membranes moist Respiratory: Mild end expiratory wheezing, decreased breath sounds at both bases Cardiovascular: Regular rate and rhythm. s1 and s2 normal No clicks, rubs, gallops, or murmurs. No pedal edema Abdomen: Abdomen is soft, nontender. Bowel sounds are present Musculoskeletal: Spontaneously moving all extremities Skin: warm, dry, intact. Neuro: Alert oriented x 3 normal cranial nerves, no focal deficits mild - Assessment and Plan (1) NSTEMI (non-ST elevated myocardial infarction) Current Visit: Yes Status: Acute (2) Pneumonia Current Visit: Yes Status: Acute Assessment and Plan: CT scan of the abdomen and pelvis done today shows bibasal pneumonia. Patient is already on Levaquin. We will continue treatment with Levaquin to complete a total course of 7 days. (3) Acute exacerbation of chronic obstructive airways disease Current Visit: Yes Status: Acute Assessment and Plan: Continue bronchodilators. Taper steroids. O2 supplementation. (4) HTN (hypertension) Current Visit: No Status: Chronic Assessment and Plan: Blood pressure is fairly controlled. Continue current medications. (5) Acute on chronic diastolic heart failure Current Visit: Yes Status: Acute (6) Diabetes mellitus Current Visit: Yes Status: Acute (7) DVT prophylaxis Current Visit: Yes Status: Acute (8) Acute kidney injury superimposed on CKD Current Visit: Yes Status: Acute - Summary of Assessment and Plan Summary of Assessment and Plan: Pneumonia: CT of the abdomen and pelvis shows bibasal pneumonia. Continue Levaquin. Plan to complete 7 day treatment course. Acute exacerbation of COPD: Taper steroids. Continue bronchodilators and O2 supplementation. Non-ST elevation RI: Status post PCI and drug-eluting stent placements. Continue dual antiplatelet therapy. Acute on chronic diastolic congestive heart failure: Stable. Appears euvolemic at this time. Diabetes mellitus type 2: Well controlled. Continue diabetic diet. Chronic kidney disease stage III: Creatinine 1.45 today. DVT prophylaxis: Continue subcutaneous heparin - Time Spent with Patient Total time spent is greater than 50% in coordination of care (as documented) at patient's floor/unit and/or counseling patient: Internal Medicine: Result - Labs CBC & Chem 7: 01/31/19 05:05 01/31/19 05:05 Labs: Short CBC 01/30/19 01/31/19 Range/Units 20:35 05:05 WBC 10.5 (4.3-11.1) K/mcL Hgb 12.4 12.2 (11.5-15.4) g/dL Hct 39.5 39.6 (35.3-44.9) % Plt Count 195 (140-400) K/mcL Neutrophils # 8.8 (1.6-8.9) K/mcL BMP 01/31/19 05:05 Sodium 138 Potassium 4.2 Chloride 105 Carbon Dioxide 27 BUN 38 H Creatinine 1.45 H Glucose 94 Calcium 8.7 - ABG Interpretation ABG results: ABG ABG pH 7.30 pH Units (7.32-7.45) L 01/27/19 12:13 ABG pCO2 57 mmHg (35-45) H 01/27/19 12:13 ABG pO2 39 mmHg (85-104) L* 01/27/19 12:13 ABG O2 Saturation 67 % (95-98) L 01/27/19 12:13 PT/INR, D-dimer PT 10.9 Seconds (9.4-12.1) 01/28/19 12:27 - Impressions Impressions Abdomen/Pelvis CT 01/31/19 10:46 IMPRESSION: 1. Small amount of subcutaneous hemorrhage within the right groin from recent catheterization. 2. Unchanged 4.8 cm infrarenal abdominal aortic aneurysm status post aortobi-iliac endograft stent. 3. Bilateral lower lobe patchy airspace disease likely due to developing pneumonia. 4. New trace left an unchanged trace right complex pleural effusions. 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
[2019-01-31] MEDS: Levofloxacin 500 MG/100 ML 500 MG/100 ML BAG IVPB SCH (17:09)
[2019-01-31] MEDS: Insulin DETEMIR 100 UNIT/ML X5UNITS SQ SCH (21:28)
[2019-01-31 21:56] LABS: Kappa Qnt Free Light Chains 1.63 mg/dL (0.33-1.94); Lambda Qnt Free Light Chains 1.08 mg/dL (0.57-2.63)
[2019-01-31 22:58] LABS: Bilirubin,Urine Negative (Negative); Blood,Urine Negative (Negative); Clarity,Urine Clear (Clear); Color,Urine Yellow (Yellow); Glucose,Urine (UA) Normal (Normal); Ketones,Urine Negative (Negative); Leukocyte Esterase,Urine Negative (Negative); Nitrite,Urine Negative (Negative); Protein,Urine 30 mg/dL (Neg-Trace); Specific Gravity,Urine 1.014 (1.010-1.025); Urobilinogen,Urine Normal (Normal)
[2019-01-31 23:00] LABS: Bacteria,Urine None Seen per hpf (None-Few); Hyaline Casts,Urine None Seen per lpf (None-Few); RBC,Urine 0-3 per hpf (0-3); Squamous Epithelial Cell,Urine Many per lpf (None-Few); WBC,Urine 0-3 per hpf (0-3)
[2019-02-01 03:14] LABS: Alpha 2 Globulin (PEP) 0.89 g/dL (0.48-1.05); Beta Globulin (PEP) 0.98 g/dL (0.48-1.10)
[2019-02-01 07:16] LABS: IFE Reflexed NOT DONE
--- NOTE | 2019-02-01 07:37 | Cardiology Progress Note ---
Date of Encounter: 02/01/19 Time of Encounter: 07:35 Assessment and Plan (1) NSTEMI (non-ST elevated myocardial infarction) Current Visit: Yes Status: Acute Per Cardiology: NSTEMI. Peak troponin 1.31. TTE this admission with LVEF 60%. Indeterminate diastolic function. Bioprosthetic mitral valve not well visualized. Trace mitral regurgitation. Prosthetic mitral valve MG 6 mmHg at 74 bpm. No significant change in gradients when compared to Echo 09/24/2017. Mild tricuspid regurgitation. Moderate pulmonary hypertension by TR gradient. All wall segments showed normal motion. S/p PCI to the PDA ad SVG -PDA. PICKETT to LAD patent. Severe LAD and LCx disease seen. Collaterals from LAD to LCx artery. Medical management recommended. If recurrent symptoms at out-pt visit consider staged PCI. Importance of DAPT uninterrupted reviewed with patient. On ASA, Plavix, BB, Statin, imdur. Cardiology signoff, reconsult as needed, follow-up arranged, all questions answered. Patient and verbalized understanding and agreed with plan. (2) CHF exacerbation Current Visit: Yes Status: Acute Per Cardiology: BNP only 92. Mild vascular congestion noted on CXR. TTE shows preserved EF. Strict I&O and daily weights. Received IV Lasix yesterday. Net I&O +901ml. Clinically stable today. Qualifiers: Heart failure type: diastolic Qualified Code(s): I50.33 - Acute on chronic diastolic (congestive) heart failure (3) COPD exacerbation Current Visit: No Status: Acute Per Cardiology: Management per primary team. Discussion w patient/family: The assessment and plan as outlined above was discussed with the patient and/or family members who expressed understanding and agreement. All questions were answered. Thank you for involving us in the care of your patient. Please call with any questions. Subjective Principal diagnosis: COPD exacerbation, NSTEMI Interval history: Seen today up out of bed. She reports short of breath has improved. She denies any chest pain or palpitations. Denies any active bleeding or blood loss. Objective Selected Entries 02/01/19 03:17 02/01/19 07:33 Temperature 97.4 F L Pulse Rate 64 Respiratory Rate 17 Blood Pressure 150/65 O2 Sat by Pulse Oximetry 97 Oxygen Flow Rate (LPM) 3 Oxygen Delivery Method Nasal Cannula General: Conversant, No Apparent Distress HEENT: Atraumatic, Normocephaly, Mucus Membranes Moist Neck: No JVD, Normal carotid pulses Cardiac: Reg Rate and Rhythm, Normal S1 and S2, No Murmur Lungs: Normal Breath Sounds, No Wheeze, Rales, Rhonchi, Other (On nasal cannula oxygen, reports has at home as needed) Neuro: Alert and responsive, No focal deficits noted Abdomen: Soft, Non-Tender Skin: No rashes noted on visualized skin, Other (R wrist site radial pulse 2+ palpable) Musculoskeletal: No Chest Wall Tenderness Extremities: No Clubbing, No Cyanosis, No Edema, Normal Pulses Results 01/31/19 05:05 01/31/19 05:05 Laboratory Tests 01/27/19 01/28/19 07:35 16:33 Troponin I 1.31 H* B-Natriuretic Peptide 92 ITS Impressions Chest X-Ray 01/27/19 07:25 IMPRESSION: 1. Cardiomegaly with mild vascular congestion. D/ / Bill Nielsen MD / Bill Nielsen MD Interpreting Provider: Bill Nielsen MD Echocardiogram 01/28/19 11:51 Impressions: LVEF 60%. Indeterminate diastolic function. Normal right ventricular structure and function. Bioprosthetic mitral valve not well visualized. Trace mitral regurgitation. Prosthetic mitral valve MG 6 mmHg at 74 bpm. No significant change in gradients when compared to Echo 09/24/2017. Recommend correlate with type of valve. Mild tricuspid regurgitation. Moderate pulmonary hypertension by TR gradient. Device leads reported by history are not well visualized on this study. Left Ventricular Wall Motion: Rest Echo Findings All wall segments showed normal motion. Findings: Study Quality * Technically adequate exam. * Technical review due to_. ECG Findings * Normal sinus rhythm. Left Ventricle * LVEF 60%. * Indeterminate diastolic function. * Normal LV chamber size, wall thickness and function. Right Ventricle * Normal right ventricular structure and function. Left Atrium * Moderately dilated left atrium. Right Atrium * Normal right atrial size. Mitral Valve * Bioprosthetic mitral valve not well visualized. * Trace mitral regurgitation. * Prosthetic mitral valve MG 6 mmHg at 74 bpm. Aortic Valve * Aortic valve not well visualized. * No aortic regurgitation. * No aortic stenosis. Tricuspid Valve * Tricuspid valve not well visualized. * Mild tricuspid regurgitation. Pulmonic Valve * Pulmonic valve is not well visualized. * No pulmonic stenosis. * No pulmonic regurgitation. Pulmonary Artery * Pulmonary artery not well visualized. Aorta * Normally sized aortic root. Pericardium * There is no pericardial effusion present. Interatrial Septum * Interatrial septum not well evaluated. IVC * The IVC is not well evaluated. Retroperitoneum Ultrasound 01/28/19 20:30 IMPRESSION: Unremarkable ultrasound of the kidneys and urinary bladder. D/ / King Love / King Love Interpreting Provider: King Love Abdomen/Pelvis CT 01/31/19 10:46 IMPRESSION: 1. Small amount of subcutaneous hemorrhage within the right groin from recent catheterization. 2. Unchanged 4.8 cm infrarenal abdominal aortic aneurysm status post aortobi-iliac endograft stent. 3. Bilateral lower lobe patchy airspace disease likely due to developing pneumonia. 4. New trace left an unchanged trace right complex pleural effusions. D/ / Jose Gresham MD / Jose Gresham MD Interpreting Provider: Jose Gresham MD Active Medications Acetaminophen (Tylenol) 650 mg PO Q6HR PRN PRN Reason: Fever/ Headache/ Mild pain Stop: 08/02/19 08:03 Albuterol/Ipratropium (Duoneb) 3 ml IH [id number] PRN PRN Reason: Shortness Of Breath/Wheezing Stop: 07/31/19 10:41 Aspirin (Aspirin) 81 mg PO DAILY [facility] Stop: 07/29/19 10:01 Last Admin: 01/31/19 10:58 Dose: Not Given Documented by: Atorvastatin Calcium (Lipitor) 40 mg PO HS [facility] Stop: 07/30/19 21:01 Last Admin: 01/31/19 21:29 Dose: Not Given Documented by: Budesonide/Formoterol Fumarate (Symbicort) 2 puff IH BIDR [facility]; Protocol Stop: 07/29/19 10:01 Last Admin: 01/31/19 19:47 Dose: 2 puff Documented by: Clopidogrel Bisulfate (Plavix) 75 mg PO DAILY [facility] Stop: 07/29/19 10:01 Last Admin: 01/31/19 10:58 Dose: Not Given Documented by: Dextrose/Water (Dextrose 50% (Syg)) 25 ml IVP AD PRN PRN Reason: Hypoglycemia Stop: 07/29/19 09:59 Glucagon (Glucagen) 1 mg IM ONCE PRN PRN Reason: Hypoglycemia Stop: 07/29/19 09:59 Glucose (Gluctose) 15 gm PO ONCE PRN PRN Reason: Hypoglycemia Stop: 07/29/19 09:59 Glucose (Gluctose) 30 gm PO ONCE PRN PRN Reason: Hypoglycemia Stop: 07/29/19 09:59 Dextrose (Dextrose 5%) 1,000 mls @ 100 mls/hr IVC .Q10H PRN PRN Reason: HYPOGLYCEMIA Stop: 07/29/19 09:59 Levofloxacin/Dextrose (Levaquin Premix 500mg/100ml) 500 mg in 100 mls @ 100 mls/hr IVPB Q48H [facility]; Protocol Stop: 07/31/19 16:01 Last Infusion: 01/31/19 18:21 Dose: Infused Documented by: Insulin Detemir (Levemir) 35 unit SQ HS [facility] Stop: 07/30/19 21:01 Last Admin: 01/31/19 21:28 Dose: 35 unit Documented by: Insulin Human Lispro (Humalog) 0 units SQ TIDAC [facility]; Protocol Stop: 07/29/19 11:31 Last Admin: 01/31/19 17:09 Dose: Not Given Documented by: Isosorbide Mononitrate (Imdur) 30 mg PO DAILY [facility] Stop: 07/31/19 10:01 Last Admin: 01/31/19 10:58 Dose: Not Given Documented by: Metoprolol Succinate (Toprol Xl) 100 mg PO DAILY [facility] Stop: 07/30/19 09:01 Last Admin: 01/31/19 10:58 Dose: Not Given Documented by: Naloxone HCl (Narcan) 0.4 mg IVP Q2M PRN PRN Reason: SEE COMMENTS Stop: 07/29/19 09:53 Nitroglycerin (Nitroglycerin) 0.4 mg SL Q5MI PRN PRN Reason: SEE COMMENTS Stop: 07/31/19 10:46 Prednisone (Prednisone) 40 mg PO DAILY [facility] Stop: 07/31/19 09:01 Last Admin: 01/31/19 10:58 Dose: Not Given Documented by: Sertraline HCl (Zoloft) 50 mg PO DAILY [facility] Stop: 07/30/19 09:01 Last Admin: 01/31/19 10:58 Dose: Not Given Documented by: - Imaging and Cardiology Echo: report reviewed Cardiac cath: report reviewed Consult Discharge Plan - Plan Referrals: Edgar Nguyen Jr, MD [Primary Care Provider] -
[2019-02-01] MEDS: Budesonide/Formoterol 160/4.5 1 PUFF INH IH SCH (07:41)
[2019-02-01] MEDS: Insulin LISPRO 300 UNITS/3 ML VIAL SQ SCH ×2 (08:03→11:54)
[2019-02-01] MEDS: predniSONE 20 MG TABLET PO SCH (08:04)
[2019-02-01] MEDS: Isosorbide MONOnitrate (24 HR) 30 MG TAB.ER.24H PO SCH (08:04)
[2019-02-01] MEDS: Aspirin 81 MG TAB.CHEW PO SCH (08:04)
[2019-02-01] MEDS: Metoprolol XL (24 HR) Succ 50 MG TAB.ER.24H PO SCH (08:04)
[2019-02-01 11:26] VITALS: BP 107/65
--- NOTE | 2019-02-01 11:27 | Discharge Summary ---
<Judy Caban E - Last Filed: 02/01/19 11:18> Orders not resulted at time of discharge: Pending orders 01/30/19 13:45 ECG 12 lead ECG [ECG] Stat 01/31/19 06:00 ECG 12 lead ECG [ECG] AM 0600 02/01/19 08:16 Basic Metabolic Panel Stat Complete Blood Count [HEME] Stat Date of Encounter: 02/01/19 Time of Encounter: 09:00 - Discharge Diagnosis (1) Acute exacerbation of chronic obstructive airways disease Priority: Primary Status: Acute (2) Acute kidney injury superimposed on CKD Priority: Primary Status: Acute (3) Acute on chronic diastolic heart failure Priority: Primary Status: Acute (4) DVT prophylaxis Priority: Secondary Status: Acute (5) Diabetes mellitus Priority: Secondary Status: Acute Qualifiers: Diabetes mellitus type: type 2 Diabetes mellitus custodial insulin use: with custodial use Diabetes mellitus complication status: with kidney complications Diabetes mellitus complication detail: with chronic kidney disease Chronic kidney disease stage: stage 3 (moderate) Qualified Code(s): E11.22 - Type 2 diabetes mellitus with diabetic chronic kidney disease; N18.3 - Chronic kidney disease, stage 3 (moderate); Z79.4 - residential (current) use of insulin (6) NSTEMI (non-ST elevated myocardial infarction) Priority: Primary Status: Acute Hospital course: Ms. Florez is a 78 year old female with past medical history of COPD on 3 L of oxygen, diastolic congestive heart failure, diabetes. Presented to the ED with complaints of coughing and shortness of breath for one week. She had sudden onset of shortness of breath One week before admission that did not getting progressively worse. Worsening cough productive of smallwood phlegm and wheezing, chills. She was admitted to the floor for COPD exacerbation and chest pain. Patient's troponin increased to 1.31 on January 28 in decreased to 0.81 the following morning. Patient was on a heparin drip for this. She had a left heart catheterization on January 30 to her kidney function had improved. This showed severe three-vessel coronary artery disease, collateral vessels from the left anterior descending to the circumflex that are visualized, PTCA/drug-eluting stent placed in the SVG to RCA, PTCA/drug-eluting stent placed in the right PDA. Patient will continue Plavix and aspirin. She will follow up with cardiology. Yesterday patient complained of abdominal pain and back pain CT abdomen and pelvis was ordered to rule out bowel obstruction/this showed small amount of subcutaneous hemorrhage within the right groin from recent catheterization, unchanged 4.8 cm for renal abdominal aortic aneurysm status post aortic iliac endograft stent, bilateral lower lobe patchy airspace disease likely due to due to pneumonia, and new trace left unchanged trace right pleural effusions. Patient's abdominal pain has since decreased. Patient had reportedly stated that she was told she did not have COPD, although she has been hospitalized for this past. Patient's pneumonia was treated with Levaquin renally dosed. She will be sent with 2 more doses of Levaquin to be completed on Saturday and . She will also be sent home with a prednisone taper. Patient's symptoms have been improving and she wishes to be able to be home so she can rest and recuperate. - Time Spent with Patient Total time spent providing and/or coordinating discharge services: - Discharge Medications Prescriptions: New levoFLOXacin [Levaquin] 500 mg PO AD #2 tablet Atorvastatin [Lipitor] 40 mg PO HS #30 tablet predniSONE [PredniSONE] 10 mg PO AD #24 tablet Budesonide/Formoterol 160/4.5 [Symbicort 160/4.5] 2 puff IH BIDR inh Metoprolol XL (24 HR) Succ [Toprol Xl] 100 mg PO DAILY tab.er.24h Albuterol Sulfate [Albuterol Inhaler] 2 puff IH Q6HR 30 Days #1 hfa.aer.ad Continued Furosemide [Lasix] 40 mg PO DAILY PRN PRN Reason: Shortness Of Breath Clopidogrel [Plavix] 75 mg PO DAILY Sertraline [Zoloft] 50 mg PO DAILY Aspirin [Adult Aspirin Regimen] 81 mg PO DAILY Nitroglycerin [Nitrostat] 0.4 mg SL Q5M PRN PRN Reason: Chest Pain Metoprolol Succinate [Toprol Xl] 100 mg PO DAILY Insulin ASPART [NovoLOG] 0 unit SQ TIDWM PRN PRN Reason: PER SLIDING SCALE Home Medications: Furosemide [Lasix] 40 mg PO DAILY PRN 10/01/16 [History] Clopidogrel [Plavix] 75 mg PO DAILY 07/16/17 [History] Sertraline [Zoloft] 50 mg PO DAILY 09/21/17 [History] Aspirin [Adult Aspirin Regimen] 81 mg PO DAILY 01/27/19 [History] Insulin ASPART [NovoLOG] 0 unit SQ TIDWM PRN 01/27/19 [History] Metoprolol Succinate [Toprol Xl] 100 mg PO DAILY 01/27/19 [History] Nitroglycerin [Nitrostat] 0.4 mg SL Q5M PRN 01/27/19 [History] Albuterol Sulfate [Albuterol Inhaler] 2 puff IH Q6HR 30 Days #1 hfa.aer.ad 02/01/19 [Rx] Atorvastatin [Lipitor] 40 mg PO HS #30 tablet 02/01/19 [Rx] Budesonide/Formoterol 160/4.5 [Symbicort 160/4.5] 2 puff IH BIDR inh 02/01/19 [Rx] Metoprolol XL (24 HR) Succ [Toprol Xl] 100 mg PO DAILY tab.er.24h 02/01/19 [Rx] levoFLOXacin [Levaquin] 500 mg PO AD #2 tablet 02/01/19 [Rx] predniSONE [PredniSONE] 10 mg PO AD #24 tablet 02/01/19 [Rx] Allergies/Adverse Reactions: Allergy/AdvReac Type Severity Reaction Status Date / Time acetaminophen AdvReac Nausea Verified 01/27/19 07:29 [From Darvocet-N] codeine AdvReac See Verified 01/27/19 07:29 Comments morphine AdvReac Nausea Verified 01/27/19 07:29 propoxyphene AdvReac Nausea Verified 01/27/19 07:29 [From Darvocet-N] Date of admission: 01/29/19 13:57 Primary care physician: Edgar Nguyen Jr, MD Consults: 01/27/19 11:18 Consult to Pastoral Services [CONS] Routine Comment: 01/28/19 07:09 Consult to Cardiology [CONS] Routine Comment: Consulting Provider: Cardiology Maya Reason for Consult: Elevated troponins 0.06 to 0.75, patient denying any chest pain, spoke to Dr Machuca regarding same, recommended checking with vascular prior to heparin drip, and cardiology will see in consult today. Call Completed: Yes 01/28/19 13:48 Consult to Nephrology [CONS] Routine Consulting Provider: Kidney Maya/KOREY/VINOD/BRITT Reason for Consult: THERESE on CKD Call Completed: Yes 01/29/19 10:13 Consult to Nurse Navigator [CONS] Routine Comment: copd, chf 01/29/19 11:55 Consult to Invasive Line Access Team [CONS] Routine Reason for Consult: powerglide Line Type: EPIV 01/30/19 13:45 Consult to Cardiac Rehabilitation-Phase1 [CONS] Routine Comment: Reason for Consult: post op PCI Call Completed: Yes Discharging clinician: Mahin Alfaro Anticipated date of discharge: 02/01/19 - Constitutional Vitals: Temp Pulse Resp BP Pulse Ox 97.8 F 77 18 118/69 96 02/01/19 07:43 02/01/19 07:43 02/01/19 07:43 02/01/19 07:43 02/01/19 07:43 Exam: General: AAO 3, no acute distress, answers questions appropriately Head: normocephalic, atraumatic Eyes: CALVIN, no icterus Cardio: RRR, no mumurs, rubs, or gallops Respiratory: An expiratory wheeze, rhonchi, rales Abd: normal bowel sounds, no gaurding or rigidity Extremties: no pedal edema, pulses equal bilaterally, warm Skin: warm, dry, intact - Patient Status Disposition: Home, Self-Care Condition: Good Functional capacity at discharge: independent ambulation Overall status at discharge: patient is progressing back to baseline - Discharge Instructions Instructions: Albuterol (By mouth), Prednisone (By mouth), Atorvastatin (By mouth), Levofloxacin (By mouth), Left Heart Catheterization (DC) Follow Up With: Edgar Nguyen Jr, MD [Primary Care Provider] - (The office will call you with a appointment date/time. ) Additional Instructions: Finish all antibiotics as prescribed Finish prednisone taper as prescribed Monitor for any times of increased infection including fever, chills, nausea, vomiting. Return the ED if symptoms worsen Follow directions from your support staff post heart catheterization and follow- up with support staff as scheduled Follow-up with your PCP within 1-2 weeks - Diet and Activity Activity: increase activity as tolerated Diet: advance to your usual diet <Mahin Alfaro - Last Filed: 02/01/19 13:53> Orders not resulted at time of discharge: Pending orders 01/30/19 13:45 ECG 12 lead ECG [ECG] Stat 01/31/19 06:00 ECG 12 lead ECG [ECG] AM 0600 02/01/19 08:16 Basic Metabolic Panel Stat Complete Blood Count [HEME] Stat Date of Encounter: 02/01/19 Time of Encounter: 13:47 - Discharge Diagnosis (1) NSTEMI (non-ST elevated myocardial infarction) Status: Acute (2) Pneumonia Status: Acute Qualifiers: Pneumonia type: due to unspecified organism Laterality: bilateral Lung location: lower lobe of lung Qualified Code(s): J18.1 - Lobar pneumonia, unspecified organism (3) Acute exacerbation of chronic obstructive airways disease Status: Acute (4) HTN (hypertension) Status: Chronic Qualifiers: Hypertension type: essential hypertension Qualified Code(s): I10 - Essential (primary) hypertension (5) Acute on chronic diastolic heart failure Status: Acute (6) Diabetes mellitus Status: Acute Qualifiers: Diabetes mellitus type: type 2 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 Florez is a 78 year old female - Time Spent with Patient Total time spent providing and/or coordinating discharge services: Date of admission: 01/29/19 13:57 Primary care physician: Edgar Nguyen Jr, MD Consults: 01/27/19 11:18 Consult to Pastoral Services [CONS] Routine Comment: 01/28/19 07:09 Consult to Cardiology [CONS] Routine Comment: Consulting Provider: Cardiology Parkin Reason for Consult: Elevated troponins 0.06 to 0.75, patient denying any chest pain, spoke to Dr Machuca regarding same, recommended checking with vascular prior to heparin drip, and cardiology will see in consult today. Call Completed: Yes 01/28/19 13:48 Consult to Nephrology [CONS] Routine Consulting Provider: Kidney Maya/KOREY/VINOD/BRITT Reason for Consult: THERESE on CKD Call Completed: Yes 01/29/19 10:13 Consult to Nurse Navigator [CONS] Routine Comment: copd, chf 01/29/19 11:55 Consult to Invasive Line Access Team [CONS] Routine Reason for Consult: powerglide Line Type: EPIV 01/30/19 13:45 Consult to Cardiac Rehabilitation-Phase1 [CONS] Routine Comment: Reason for Consult: post op PCI Call Completed: Yes - Constitutional Vitals: Temp Pulse Resp BP Pulse Ox 98.2 F 70 18 107/65 94 02/01/19 11:20 02/01/19 11:20 02/01/19 11:20 02/01/19 11:20 02/01/19 11:20 - Attending Attestation I saw evaluated and examined this patient and my medical decision-making was reviewed with the Resident Physician, Judy Caban. I agree with the documented findings, disposition and treatment plan as described except to any changes set forth below. We independently had phum-fo-lyac contact with the patient. Patient with a history of chronic bronchitis, chronic respiratory failure, coronary artery disease, diabetes, congestive heart failure was hospitalized here with shortness of breath. She was diagnosed with acute COPD and acute congestive heart failure. She was treated with bronchodilators and steroids. However her troponins also shy up and she was diagnosed with non-ST elevation CO. She was placed on IV heparin and cardiology was consulted. Patient did receive Lasix initially but her renal function worsened. As such Lasix was held. Patient appears to be euvolemic at this time. Nephrology was consulted and they give her Mucomyst and IV fluids with improvement in her renal function. She then underwent left heart catheterization and was found to have severe three-vessel disease in her bypass grafts and underwent PTCA and drug-eluting stent placement in SVG to RCA and right PDA. Since then she has been doing well. She did develop a single bout of blood-tinged sputum. Likely due to subcutaneous heparin and Aggrastat that she recently received. She has been on aspirin and Plavix and will continue to take the same medications. She will follow up with cardiology as outpatient. Patient is on chronic oxygen at home and will continue to use the same. On exam, patient has bilateral wheezing. S1 and S2 are normal. No pedal edema.
--- NOTE | 2019-02-02 11:16 | Invasive Diagnostic Lab Proc ---
Name: Delores Florez Date of Study: 01/30/2019 Date: 1940 Ht: 64.2in Medical Record#: [id number] Age: 78 Wt: 211.64lb Gender: Female BSA: 2.01 Order #: [id number] BMI: 36.13 Physicians Procedure Physician: David Dobbins MD, [facility] Referring MD: Referring MD: Staff Name Position Time In Delmi Salguero RT (R) Monitor 12:09 PM Tommie Thornton RN Timber Framer 12:09 PM Nils Gordon RT (R) Scrub 12:09 PM China Paul RN Monitor 01:11 PM Marycruz Banda RT (R) 01:00 PM Procedures Performed Procedure L HRT ART/GRFT ANGIO PRQ REVASC BYP GRAFT 1 VSL PRQ CARD STENT W/ANGIO ADDL MOD SED OTH PHYS/QHP 5/>YRS MOD SED OTHER PHYS/QHP EA MOD SED OTHER PHYS/QHP EA MOD SED OTHER PHYS/QHP EA MOD SED OTHER PHYS/QHP EA Pre-Procedure Checklist Informed consent is complete signed and on chart. H&P is on chart. ID band is on and ID verified with patient. Patient NPO for procedure The procedure was described for the patient and questions were answered. Blood Pressure: 142/71 ECG is on chart. Rhythm: NSR Plan of Care Patient will tolerate the procedure without complications. Adequate level of comfort will be maintained. Hemodynamics will remain stable Patient will recover from procedure without complications. Respiratory function will be maintained. Cardiac rhythm will remain stable. Patient temperature will be maintained. Patient and/or family have verbalized understanding of the procedure. Patient Education Chief Complaint/Reason for Test: Cardiac Cath Developmental Category: Geriatric (65+ years) Developmentally Appropriate for Age: Yes Learning Barriers: None Education Needs: Procedure Education Method: Verbal Information Taught: Cardiac Cath Educational Evaluation: Able to repeat information Intravenous Access Time IV Size Location DC'd Fluid/Drip Rate Units RN 10:13 AM 20g 1 1/4" Patent On Arrival Rt Arm 0.9NaCl 25 ml/hr Allergies morphine propoxyphene acetaminophen codeine Vital Signs Time BP (mmHg) HR (bpm) O2 Sat. RR (bpm) LOC 12:10 PM 142 / 71 61 94 % 16 4 = Oriented but drowsy 12:10 PM / % 4 = Oriented but drowsy 12:25 PM / % 4 = Oriented but drowsy 12:40 PM / % 4 = Oriented but drowsy 12:55 PM / % 4 = Oriented but drowsy 12:05 PM 160 / 89 63 96 % 15 12:10 PM 142 / 71 61 92 % 12:15 PM 144 / 69 60 95 % 12:20 PM 142 / 78 60 95 % 25 12:25 PM 149 / 73 60 96 % 23 12:30 PM 126 / 62 60 94 % 27 12:35 PM 135 / 58 61 91 % 18 12:40 PM 126 / 64 61 93 % 12:45 PM 133 / 57 60 95 % 28 12:50 PM 134 / 66 60 95 % 25 12:55 PM 136 / 61 60 94 % 11 01:00 PM 141 / 71 60 95 % 01:05 PM 144 / 70 60 95 % 30 01:10 PM 147 / 76 60 96 % 20 01:15 PM 146 / 67 60 95 % 01:20 PM 156 / 70 60 96 % 22 01:25 PM 165 / 79 60 97 % 13 01:30 PM 141 / 66 60 97 % 16 Procedural Medications Time Medication Dose Units Method Given By 12:10 PM Oxygen 2 L/min nasal cannula Tommie Thornton RN 12:10 PM Versed 2 mg Intravenous Tommie Thornton RN 12:10 PM Fentanyl 50 mcg Intravenous Tommie Thornton RN 12:20 PM Lidocaine 2% 0.5 ml Subcutaneous David Dobbins MD, FACC 12:26 PM Heparin 2000 units Nitroglycerin 200 mcg Verapamil 2.5 mg Intraarterial Davdi Dobbins MD, FACC 12:32 PM Versed 1 mg Intravenous Tommie Thornton RN 12:32 PM Fentanyl 25 mcg Intravenous Tommie Thornton RN 12:32 PM Lidocaine 2% 19.5 ml Subcutaneous David Dobbins MD, FACC 12:53 PM Aggrastat Bolus: 50 ml Tommie Thornton RN 12:53 PM Aggrastat 12.5mg/250ml 9 ml Tommie Thornton RN 01:02 PM Heparin 2000 units Intravenous Tommie Thornton RN ASA Classification: CLASS II- Mild systemic disease (i.e. well-controlled diabetes, hypertension, asthma, cigarette smoking) Peyton Score Preprocedure Postprocedure Activity 2- Moves 4 extremities sustained head lift Activity 2- Moves 4 extremities sustained head lift Circulation 2- SBP +/= 20 points of pre-anesthetic level Circulation 2- SBP +/= 20 points of pre-anesthetic level Consciousness 2- Awake and alert oriented x 3 Consciousness 2- Awake and alert oriented x 3 O2 Saturation 2- Able to maintain O2 satruation of 92% on room air O2 Saturation 2- Able to maintain O2 satruation of 92% on room air Respiratory 2- Able to deep breathe and cough well Respiratory 2- Able to deep breathe and cough well Total Score 10 Total Score 10 Contrast Agent: Isovue Diagnostic Contrast: 96 ml Total Contrast: 96 ml Fluoro Dose: 50 mGy Activated Clotting Time Time Seconds to Clot 01:02 PM 188 Procedure Log Time Note Enter By 12:04 PM CathStat 12:04 PM Vitals capture started with the following parameters, Patient=Adult, Interval=5 min, Initial Xzyyycsz=611 mmHg, Deflation Rate=5 mmHg, Cuff placed on Left Arm 12:05 PM HR=63 bpm, WSDG=394/89 mmhg, SpO2=96.0 %, Resp=15 B/min, Comment=SR 12:08 PM [email or web address] 12[facility]09 PM Delmi Salguero RT (R) Position: Monitor Time in: 12: [email or web address] 12:09 PM Tommie Thornton RN Position: Timber Framer Time in: 12: [email or web address] 12:09 PM Nils Gordon RT (R) Position: Scrub [facility]: 12:09 [email or web address] 12[facility] PM Patient charges- Angio tray pack, Navilyst 3mm J, Pulse Oximetry and ACIST tubing and transducer [email or web address] 12:09 PM Case Delayed No [email or web address] 12:10 PM Hair removed from procedure site in holding area using clippers. Right wrist and Right groin prepped with Chloraprep by Delmi Salguero RT (R), then patient was draped. Skin intact. [email or web address] 12:10 PM Physician arrived 12:10 [email or web address] 12:10 PM Vanna completed [email or web address] 12:10 PM ASA Class CLASS II- Mild systemic disease (i.e. well-controlled diabetes, hypertension, asthma, cigarette smoking) [email or web address] 12:10 PM Sign in performed according to hospital policy. Informed consent was obtained. [email or web address] 12:10 PM HR=61 bpm, MPAL=253/71 mmhg, SpO2=92.0 %, Comment=SR 12:10 PM Procedure start 12:10 [email or web address] 12:10 PM Time: 12:10 Oxygen on at 2 L/min per nasal cannula by Tommie Thornton RN [email or web address] 12:10 PM Time: 12:10 Versed 2 mg Intravenous Given by Tommie Thornton RN [email or web address] 12:10 PM Time: 12:10 Fentanyl 50 mcg Intravenous Given by Tommie Thornton RN [email or web address] 12:10 PM Time: 12:10 Patient comfortable and pain free: Yes [email or web address] 12:10 PM Time: 12:10LOC: 4 = Oriented but drowsy [email or web address] 12:11 PM Recorded ECG: HR=60 Condition=Condition 1 12:11 PM Pressure channel 1 zeroed. 12:15 PM HR=60 bpm, WLXS=722/69 mmhg, SpO2=95.0 %, Comment=SR 12:19 PM Time out was performed according to hospital policy. Conscious sedation and anesthesia was achieved (see medication log with in this report above) [email or web address] 12:20 PM HR=60 bpm, UKEG=173/78 mmhg, SpO2=95.0 %, Resp=25 B/min, Comment=SR 12:20 PM Time: 12:20 0.5 ml Lidocaine 2% to right radial Subcutaneous Given by David Dobbins MD, FACC [email or web address] 12:22 PM Unsuccessful access attempt # 1 into the right Radial artery. Manual pressure applied to achieve hemostasis.. [email or web address] 12:23 PM Access obtained by percutaneous puncture. 6Fr 10cm Terumo Delton sheath placed in right Radial artery. [id number] [email or web address] 12:25 PM HR=60 bpm, QKYI=103/73 mmhg, SpO2=96.0 %, Resp=23 B/min, Comment=SR 12:25 PM Time: 12:10 Patient comfortable and pain free: Yes [email or web address] 12:25 PM Time: 12:10LOC: 4 = Oriented but drowsy [email or web address] 12:26 PM Time: 12:26 Patient given 2,000 units Heparin, 200 mcg Nitroglycerin, and 2.5 mg Verapamil Intraarterial by David Dobbins MD, FACC. This is given to reduce risk of vessel spasm and thrombosis. [email or web address] 12:26 PM 0.035 260cm Navilyst 3mmJ wire [id number] [email or web address] 12:26 PM 5Fr TIG [email or web address] 12[facility]30 PM HR=60 bpm, WDXR=729/62 mmhg, SpO2=94.0 %, Resp=27 B/min, Comment=SR 12:30 PM Catheter removed [email or web address] 12:30 PM Wire removed [email or web address] 12[facility] PM Time: 12:32 Versed 1 mg Intravenous Given by Tommie Thornton RN [email or web address] 12:32 PM Time: 12:32 Fentanyl 25 mcg Intravenous Given by Tommie Thornton RN [email or web address] 12:32 PM Time: 12:32 19.5 ml Lidocaine 2% to right groin Subcutaneous Given by [facility], [email or web address] 12[facility]34 PM Access obtained by percutaneous puncture. 5Fr 10cm Terumo Delton sheath placed in right Femoral artery. [id number] [email or web address] 12:34 PM 0.035 145cm Navilyst 3mmJ wire [id number] [email or web address] 12:34 PM 5Fr FR 4 [email or web address] 12[facility]35 PM Recorded Pressure: LV, HR=62, Condition=Condition 1 (Left Ventricle) LV 116/-8/10 12:35 PM HR=61 bpm, QGLC=902/58 mmhg, SpO2=91.0 %, Resp=18 B/min, Comment=SR 12:35 PM Recorded Pressure: LV, Ao, HR=61, Condition=Condition 1 (Left Ventricle) LV 112/-11/9, (Aorta) Ao 112/50/76 12:36 PM Catheter crossed the aortic valve and was selectively placed in the left ventricle. Pressures recorded on pullback for left heart catheterization. [email or web address] 12:36 PM Catheter repositioned for RCA. [email or web address] 12:36 PM RCA angiography performed in multiple views. [email or web address] 12:37 PM Lesion found in Proximal RCA. Pre Stenosis: 99 Pre MICHAEL Flow: 2: Partial Flow/Perfusion (> 1 but < 3) [email or web address] 12:37 PM Lesion found in Mid RCA. Pre Stenosis: 100 Pre MICHAEL Flow: 0: No Flow/No perfusion [email or web address] 12:37 PM SVG to the RPDA angio performed in multiple views. [email or web address] 12:38 PM Lesion found in Right PDA. Pre Stenosis: 95 Pre MICHAEL Flow: 3: Complete and Brisk Flow/Perfusion [email or web address] 12:38 PM Catheter repositioned for PICKETT. [email or web address] 12:38 PM Catheter removed [email or web address] 12:38 PM 5Fr IM catheter inserted over the wire [id number] [email or web address] 12:39 PM Left CHARLIE to the LAD angio performed in multiple views. [email or web address] 12:40 PM HR=61 bpm, GSSX=007/64 mmhg, SpO2=93.0 %, Comment=SR 12:40 PM Recorded Pressure: Ao, HR=61, Condition=Condition 1 (Aorta) Ao 106/61/83 12:40 PM Time: 12:25 Patient comfortable and pain free: Yes [email or web address] 12:40 PM Time: 12:25LOC: 4 = Oriented but drowsy [email or web address] 12:41 PM Catheter removed [email or web address] 12:41 PM 5Fr FL 4 catheter inserted over the wire DNC [email or web address] 12:41 PM Lesion found in Mid LAD. Pre Stenosis: 90 Pre MICHAEL Flow: 3: Complete and Brisk Flow/Perfusion [email or web address] 12:41 PM LCA angiography performed in multiple views. [email or web address] 12:42 PM Recorded Pressure: Ao, HR=61, Condition=Condition 1 (Aorta) Ao 104/55/78 12:43 PM Lesion found in Proximal LAD. Pre Stenosis: 90 Pre MICHAEL Flow: 3: Complete and Brisk Flow/Perfusion [email or web address] 12:45 PM HR=60 bpm, PRZW=558/57 mmhg, SpO2=95.0 %, Resp=28 B/min, Comment=SR 12:45 PM Lesion found in Proximal LMCA. Pre Stenosis: 50 Pre MICHAEL Flow: 3: Complete and Brisk Flow/Perfusion [email or web address] 12:46 PM Lesion found in Mid LMCA. Pre Stenosis: 50 Pre MICHAEL Flow: 3: Complete and Brisk Flow/Perfusion [email or web address] 12:46 PM Lesion found in Distal LMCA. Pre Stenosis: 50 Pre MICHAEL Flow: 3: Complete and Brisk Flow/Perfusion [email or web address] 12:46 PM Lesion found in 1st Diagonal. Pre Stenosis: 90 Pre MICHAEL Flow: 3: Complete and Brisk Flow/Perfusion [email or web address] 12:46 PM Lesion found in Proximal Circumflex. Pre Stenosis: 70 Pre MICHAEL Flow: 3: Complete and Brisk Flow/Perfusion [email or web address] 12:47 PM Lesion found in Mid Circumflex. Pre Stenosis: 99 Pre MICHAEL Flow: 2: Partial Flow/Perfusion (> 1 but < 3) [email or web address] 12:47 PM Lesion found in Right PDA. Pre Stenosis: 90 Pre MICHAEL Flow: 3: Complete and Brisk Flow/Perfusion [email or web address] 12:48 PM 5Fr FR 4 catheter inserted over the wire [facility] [email or web address] 12:49 PM Sheath exchanged for a 6 Fr 11 cm Cordis Radha sheath [id number] [email or web address] 12:49 PM Catheter removed [email or web address] 12:50 PM 6Fr JR 4 Runway guide catheter was used to cannulate the PCI vessel successfully. reused? No [email or web address] 12:50 PM HR=60 bpm, ZWDH=668/66 mmhg, SpO2=95.0 %, Resp=25 B/min, Comment=SR 12:50 PM Inflation device was opened. [email or web address] 12:52 PM Filter wire inserted to target lesion. [email or web address] 12:53 PM Time: 12:53 Aggrastat Bolus: 50 ml Given by Tommie Thornton RN Gray pump [email or web address] 12:53 PM Time: 12:53 Aggrastat 12.5mg/250ml 9 ml Given by Tommie Thornton RN Gray pump [email or web address] 12:55 PM HR=60 bpm, VSWD=024/61 mmhg, SpO2=94.0 %, Resp=11 B/min, Comment=SR 12:55 PM Time: 12:40 Patient comfortable and pain free: Yes [email or web address] 12:55 PM Time: 12:40LOC: 4 = Oriented but drowsy [email or web address] 01:00 PM HR=60 bpm, LKRK=976/71 mmhg, SpO2=95.0 %, Comment=SR 01:00 PM Marycruz Banda RT (R) Position: Time in: 13:00 [email or web address] 01:01 PM 4.0mm x 16mm Synergy drug-eluting stent across target lesion- successful Lot #[id number] [email or web address] 01:02 PM Stent deployed @ 14 niya for 17 seconds [email or web address] 01:02 PM At 13:02 the ACT was 188 seconds. [email or web address] 01:03 PM Time: 13:02 Heparin 2000 units Intravenous Given by Tommie Thornton RN [email or web address] 01:03 PM Stent delivery system removed intact. [email or web address] 01:04 PM 4.5 mm x 15mm NC Emerge balloon across target lesion- successful. reused? No [email or web address] 01:05 PM HR=60 bpm, AQKT=936/70 mmhg, SpO2=95.0 %, Resp=30 B/min, Comment=SR 01:05 PM Balloon inflated @ 13 niya for 18 seconds [email or web address] 01:05 PM Balloon catheter removed intact. [email or web address] 01:07 PM Recorded Pressure: Ao, HR=60, Condition=Condition 1 (Aorta) Ao 124/69/94 01:08 PM Filter wire retrieved. [email or web address] 01:10 PM HR=60 bpm, JDRW=287/76 mmhg, SpO2=96.0 %, Resp=20 B/min, Comment=SR 01:10 PM Time: 12:55LOC: 4 = Oriented but drowsy [email or web address] 01:11 PM Time: 12:55 Patient comfortable and pain free: Yes [email or web address] 01:11 PM .014 PT Graphix 182cm guide wire across target lesion- successful. reused? No [email or web address] 01:11 PM China Paul RN Position: Monitor Time in: 13:11 to relieve Delmi Salguero RT (R) [email or web address] 01:14 PM 2.0 mm x 15 mm Emerge Monorail balloon across target lesion- successful. reused? No [email or web address] 01:14 PM Balloon inflated @ 8 niya for 14 seconds [email or web address] 01:14 PM Balloon inflated @ 8 niya for 9 seconds [email or web address] 01:15 PM HR=60 bpm, GTGF=542/67 mmhg, SpO2=95.0 % 01:15 PM Balloon catheter removed intact. [email or web address] 01:17 PM 2.25mm x 20mm Synergy drug-eluting stent across target lesion- successful Lot #[id number] [email or web address] 01:17 PM Stent deployed @ 11 niya for 16 seconds [email or web address] 01:18 PM Stent delivery system removed intact. [email or web address] 01:18 PM 2.25 mm x 12mm NC Trek Rx balloon across target lesion- successful. reused? No [email or web address] 01:19 PM Balloon inflated @ 16 niya for 14 seconds [email or web address] 01:20 PM Recorded Pressure: Ao, HR=61, Condition=Condition 1 (Aorta) Ao 129/71/97 01:20 PM HR=60 bpm, LEYH=273/70 mmhg, SpO2=96.0 %, Resp=22 B/min 01:20 PM Balloon inflated @ 16 niya for 10 seconds [email or web address] 01:21 PM Balloon catheter removed intact. [email or web address] 01:21 PM Guide wire removed intact. [email or web address] 01:21 PM Guide wire removed intact. [email or web address] 01:22 PM Guide catheter removed intact. [email or web address] 01:22 PM Bolus angiogram of right Femoral complete: 4 ml/sec for a total of 7 mls [email or web address] 01:22 PM Procedure completed at 13:22 01/30/2019 [email or web address] 01:22 PM Did you address MICHAEL flow and Dominance? Yes [email or web address] 01:23 PM Sign out completed: Radiation Dose 431.87 mGy, 49.6 Gy/cm2 Fluoro Time: 14.8 Isovue 370 - 200ml contrast 96 ml given by David Dobbins MD, [facility]. Complications: None. 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 Sedation minutes 73. Cardiac Rehab Consult needed: Yes. Confirmed administered medications: Yes 3 01:23 PM Isovue 370 - 200ml,1 Bottle(s) used. [email or web address] 01:23 PM Arterial sheath pulled, Mynx closure device used and was Successful [id number] S/N. [email or web address] 01:23 PM Estimated Blood Loss: less than 50cc [email or web address] 01:23 PM Post ECG Sinus Bradycardia [email or web address] 01:23 PM Post Blood Pressure 156/70 [email or web address] 01:24 PM Information taught Cardiac Cath, PCI, and Mynx [email or web address] 01:24 PM Education needs Procedure, Plan of Care, and Responsibilities of Patient in Care [email or web address] 01:24 PM Learning barriers :None [email or web address] 01:24 PM Education Methods Verbal [email or web address] 01:24 PM Education evaluation Able to repeat information [email or web address] 01:24 PM Plavix, Effient or Brilinta given No- administered this am on per floor nurse. [email or web address] 01:24 PM Family placed in consult room. [email or web address] 01:24 PM Complications: None [email or web address] 01:25 PM HR=60 bpm, HJHC=866/79 mmhg, SpO2=97.0 %, Resp=13 B/min 01:26 PM Site status No bleeding/hematoma - Rt Groin as reported by Nils Gordon RT (R) at 13:26 [email or web address] 01:26 PM Opsite applied [email or web address] 01:29 PM Report given to Negin CAMPBELL Pt taken to Room #33. 13:29 [email or web address] 01:30 PM HR=60 bpm, EDKO=757/66 mmhg, SpO2=97.0 %, Resp=16 B/min 01:31 PM 10 ml air in Vasc Band. [email or web address] 01:33 PM Patient out of room: 13:33 [email or web address] 01:34 PM Vitals capture stopped. 11:02 AM Coronary Dominance: right [email or web address] Equipment Used Size Length Diameter Item Category ACT Other Angio tray pack Other Terumo Delton sheath Navilyst 3mmJ wire Terumo Delton sheath Navilyst 3mmJ wire IM catheter Runway Guide catheter Inflation kit Other Cordis Radha sheath BMW Guidewire Gray pump Other Xience Jewels Rx Drug Eluting Stent Emerge PTCA Dilatation Catheter Monorail Balloon PT Graphix Guidewire Emerge PTCA Dilatation Catheter Monorail Balloon Xience Jewels Rx Drug Eluting Stent NC Trek Rx Balloon Mynx Sealant Complications Complication None Hemodynamics Pressures Site Systolic/A Wave Diastolic/V Wave Mean LV 116 -8 10 AO 106 61 83 AO 104 55 78 AO 124 69 94 AO 129 71 97 LV 112 -11 9 AO 112 50 76 Post Procedure Information Blood Pressure: 156/70 mmHg Rhythm: Sinus Bradycardia Post procedural instructions were given Closure Device Time Device Success/Fail 01/30/2019 1:26:00 PM MynxGrip Successful 01/30/2019 1:31:00 PM Mechanical Compression Successful Site Checks Time Location Status Staff Sheath In? Note 01:26 PM Rt Groin No bleeding/hematoma Nils Gordon RT (R) Pulses Time Site Pre-Procedure Post-Procedure Note 01/30/2019 10:14:00 AM Bilateral DP 2+ 01/30/2019 10:14:00 AM Bilateral radial 2+ Updated by RT Sabrina(R) on 02/02/2019 11:05:37 AM electronically signed on 02/02/2019 11:06:55 AM with status of Final
== END 2019-02-01 12:49 | disposition home or self-care (01) | DRG 246 ==
LOC: 3NENU 07:11 → EMEROOARM 07:11 → SUATTDRO 09:37 → 3NENU 10:23 → 3BNU 01-30 13:33
PROVIDERS: ADMIT Student in an Organized Health Care Education/Training Program; ATTEND Internal Medicine

== ENCOUNTER 2019-02-06 09:53 | Observation (INO) ==
[2019-02-06] MEDS ORDERED: Ipratropium/Albuterol Neb 3 ML IH ONE (09:58)
[2019-02-06 10:31] LABS: Basophils # 0.1 K/mcL (0.0-0.2); Basophils % 0.6 %; Eosinophils # 0.2 K/mcL (0.0-0.6); Hematocrit 41.6 % (35.3-44.9); Hemoglobin 13.3 g/dL (11.5-15.4); Immature Granulocytes % 2.7 % (0-4); Lymphocytes % 6.3 %; Mean Corpuscular Hemoglobin 28.6 pg (28.0-33.3); Mean Corpuscular Volume 89.5 fL (83.0-100.0); Mean Platelet Volume 9.7 fL (9.4-12.4); Monocytes # 0.7 K/mcL (0.0-1.3); Monocytes % 4.6 %; Neutrophils # 13.1 K/mcL (1.6-8.9); Platelet Count 272 K/mcL (140-400); Red Blood Count 4.65 M/mcL (3.82-4.97); Red Cell Distribution Width 14.4 % (11.5-14.5); Segmented Neutrophils % 84.8 %; White Blood Count 15.4 K/mcL (4.3-11.1)
[2019-02-06] MEDS ORDERED: Furosemide 40 MG/4 ML VIAL IVP ONE (10:34)
[2019-02-06] MEDS ORDERED: Naloxone 0.4 MG/ML INJ IVP PRN (10:47)
[2019-02-06 10:53] LABS: Calcium 9.4 mg/dL (8.6-10.3); Potassium 3.9 mEq/L (3.5-5.1); Troponin I 0.04 ng/mL (< 0.04)
[2019-02-06] MEDS ORDERED: D5% in Water 1,000 ML IVC PRN (12:39)
[2019-02-06] MEDS ORDERED: Dextrose Gel 15 GM/37.5 ML TUBE PO PRN ×2 (12:39)
[2019-02-06] MEDS ORDERED: *HR* Dextrose 50 % in Water (Syg) 50 ML SYRINGE IVP PRN (12:39)
[2019-02-06 13:10] LABS: Estimated Average Glucose 192 mg/dl
[2019-02-06] MEDS: Aspirin Enteric Coated 81 MG Tablet PO SCH (13:15)
[2019-02-06] MEDS: Ipratropium/Albuterol Neb 3 ML IH SCH ×4 (14:09→23:47)
[2019-02-06] MEDS: Insulin LISPRO 300 UNITS/3 ML VIAL SQ SCH (17:09)
[2019-02-06] MEDS: methylPREDNISolone 125 MG/2 ML VIAL IVP SCH ×2 (17:09→23:11)
[2019-02-06] MEDS: GuaiFENesin Liq 200 MG/10 ML UDC PO SCH ×2 (17:09→23:11)
[2019-02-06] MEDS: Budesonide/Formoterol 160/4.5 1 PUFF INH IH SCH (20:22)
[2019-02-06] MEDS: Furosemide 40 MG/4 ML VIAL IVP SCH (21:02)
[2019-02-06] MEDS: Insulin DETEMIR 100 UNIT/ML X5UNITS SQ SCH (21:02)
[2019-02-07] MEDS: Ipratropium/Albuterol Neb 3 ML IH SCH ×6 (03:43→23:45)
[2019-02-07] MEDS: GuaiFENesin Liq 200 MG/10 ML UDC PO SCH ×4 (05:09→23:22)
[2019-02-07 07:28] LABS: Basophils % 0.1 %; Hematocrit 41.2 % (35.3-44.9); Hemoglobin 13.1 g/dL (11.5-15.4); Immature Granulocytes % 1.2 % (0-4); Lymphocytes # 0.4 K/mcL (0.6-4.6); Lymphocytes % 2.9 %; Mean Corpuscular HGB Conc 31.8 g/dL (31.6-35.5); Mean Corpuscular Hemoglobin 28.8 pg (28.0-33.3); Mean Corpuscular Volume 90.5 fL (83.0-100.0); Mean Platelet Volume 9.9 fL (9.4-12.4); Monocytes # 0.1 K/mcL (0.0-1.3); Monocytes % 0.6 %; Neutrophils # 14.2 K/mcL (1.6-8.9); Platelet Count 287 K/mcL (140-400); Red Blood Count 4.55 M/mcL (3.82-4.97); Red Cell Distribution Width 14.4 % (11.5-14.5); Segmented Neutrophils % 95.2 %; White Blood Count 14.9 K/mcL (4.3-11.1)
[2019-02-07] MEDS: Budesonide/Formoterol 160/4.5 1 PUFF INH IH SCH ×2 (07:38→20:13)
[2019-02-07 07:42] LABS: Calcium 9.5 mg/dL (8.6-10.3); Magnesium 2.1 mg/dL (1.6-2.6); Phosphorous 5.2 mg/dL (2.7-4.5); Potassium 4.4 mEq/L (3.5-5.1)
[2019-02-07] MEDS: Insulin LISPRO 300 UNITS/3 ML VIAL SQ SCH ×4 (08:32→22:37)
[2019-02-07] MEDS: Metoprolol XL (24 HR) Succ 50 MG TAB.ER.24H PO SCH (08:32)
[2019-02-07] MEDS: Aspirin Enteric Coated 81 MG Tablet PO SCH (08:32)
[2019-02-07] MEDS: methylPREDNISolone 125 MG/2 ML VIAL IVP SCH ×3 (08:32→23:23)
[2019-02-07] MEDS: Furosemide 40 MG/4 ML VIAL IVP SCH ×2 (08:32→16:33)
[2019-02-07] MEDS: *HR* Heparin 5,000 UNIT/ML VIAL SQ SCH (17:20)
[2019-02-07] MEDS: Insulin DETEMIR 100 UNIT/ML X5UNITS SQ SCH (21:03)
[2019-02-08 01:09] LABS: Basophils % 0.1 %; Hematocrit 40.4 % (35.3-44.9); Hemoglobin 12.7 g/dL (11.5-15.4); Immature Granulocytes % 1.4 % (0-4); Lymphocytes # 0.6 K/mcL (0.6-4.6); Lymphocytes % 2.5 %; Mean Corpuscular HGB Conc 31.4 g/dL (31.6-35.5); Mean Corpuscular Hemoglobin 28.5 pg (28.0-33.3); Mean Corpuscular Volume 90.6 fL (83.0-100.0); Monocytes # 0.4 K/mcL (0.0-1.3); Monocytes % 1.7 %; Neutrophils # 21.2 K/mcL (1.6-8.9); Platelet Count 317 K/mcL (140-400); Red Blood Count 4.46 M/mcL (3.82-4.97); Red Cell Distribution Width 14.3 % (11.5-14.5); Segmented Neutrophils % 94.3 %
[2019-02-08 01:12] LABS: White Blood Count 22.5 K/mcL (4.3-11.1)
[2019-02-08 01:28] LABS: Calcium 9.1 mg/dL (8.6-10.3); Phosphorous 5.1 mg/dL (2.7-4.5); Potassium 4.2 mEq/L (3.5-5.1)
[2019-02-08 01:34] LABS: Platelet Estimate Normal (Normal)
[2019-02-08] MEDS: Ipratropium/Albuterol Neb 3 ML IH SCH ×6 (03:50→23:29)
[2019-02-08] MEDS: GuaiFENesin Liq 200 MG/10 ML UDC PO SCH ×3 (05:37→16:58)
[2019-02-08] MEDS: *HR* Heparin 5,000 UNIT/ML VIAL SQ SCH ×2 (05:37→16:57)
[2019-02-08] MEDS: Budesonide/Formoterol 160/4.5 1 PUFF INH IH SCH ×2 (07:30→20:11)
[2019-02-08] MEDS: Metoprolol XL (24 HR) Succ 50 MG TAB.ER.24H PO SCH (09:30)
[2019-02-08] MEDS: Aspirin Enteric Coated 81 MG Tablet PO SCH (09:30)
[2019-02-08] MEDS: methylPREDNISolone 125 MG/2 ML VIAL IVP SCH ×2 (09:31→15:45)
[2019-02-08] MEDS: Furosemide 40 MG/4 ML VIAL IVP SCH (09:31)
[2019-02-08] MEDS: Insulin LISPRO 300 UNITS/3 ML VIAL SQ SCH ×4 (09:31→20:35)
[2019-02-08] MEDS ORDERED: Perflutren Lipid Microsphere 1.3 ML in 0.9 % Sodium Chloride 8.7 ML IVP ONE (13:38)
[2019-02-08] MEDS: Azithromycin 500 MG in D5% in Water 250 ML IVPB SCH (15:45)
[2019-02-08 18:16] LABS: Adenovirus Not Detected (Not Detect); Bordetella Pertussis Not Detected (Not Detect); Chlamydophila pneumoniae Not Detected (Not Detect); Coronavirus 229E Not Detected (Not Detect); Coronavirus HKU1 Not Detected (Not Detect); Coronavirus NL63 Not Detected (Not Detect); Coronavirus OC43 Not Detected (Not Detect); Human Metapneumovirus Not Detected (Not Detect); Human Rhinovirus/Enterovirus Not Detected (Not Detect); Influenza A Subtype 2009 H1 Not Detected (Not Detect); Influenza B Not Detected (Not Detect); Mycoplasma pneumoniae Not Detected (Not Detect); Parainfluenza Virus 1 Not Detected (Not Detect); Parainfluenza Virus 2 Not Detected (Not Detect); Parainfluenza Virus 3 Not Detected (Not Detect); Parainfluenza Virus 4 Not Detected (Not Detect); Respiratory Syncytial Virus Not Detected (Not Detect)
[2019-02-08] MEDS: Insulin DETEMIR 100 UNIT/ML X5UNITS SQ SCH (20:35)
[2019-02-09] MEDS: GuaiFENesin Liq 200 MG/10 ML UDC PO SCH ×4 (01:00→17:06)
[2019-02-09] MEDS: methylPREDNISolone 125 MG/2 ML VIAL IVP SCH ×3 (01:00→16:10)
[2019-02-09] MEDS: Ipratropium/Albuterol Neb 3 ML IH SCH ×6 (04:14→23:57)
[2019-02-09] MEDS: *HR* Heparin 5,000 UNIT/ML VIAL SQ SCH ×2 (05:37→17:07)
[2019-02-09] MEDS: Budesonide/Formoterol 160/4.5 1 PUFF INH IH SCH ×2 (07:46→19:58)
[2019-02-09 08:22] LABS: Basophils % 0.1 %; Hematocrit 39.6 % (35.3-44.9); Hemoglobin 12.6 g/dL (11.5-15.4); Immature Granulocytes % 0.8 % (0-4); Lymphocytes # 0.3 K/mcL (0.6-4.6); Lymphocytes % 2.1 %; Mean Corpuscular HGB Conc 31.8 g/dL (31.6-35.5); Mean Corpuscular Hemoglobin 28.8 pg (28.0-33.3); Mean Corpuscular Volume 90.6 fL (83.0-100.0); Mean Platelet Volume 9.9 fL (9.4-12.4); Monocytes # 0.4 K/mcL (0.0-1.3); Monocytes % 2.3 %; Neutrophils # 14.8 K/mcL (1.6-8.9); Platelet Count 291 K/mcL (140-400); Red Blood Count 4.37 M/mcL (3.82-4.97); Red Cell Distribution Width 14.5 % (11.5-14.5); Segmented Neutrophils % 94.7 %; White Blood Count 15.6 K/mcL (4.3-11.1)
[2019-02-09 08:39] LABS: Calcium 9.2 mg/dL (8.6-10.3); Phosphorous 6.1 mg/dL (2.7-4.5); Potassium 4.5 mEq/L (3.5-5.1)
[2019-02-09] MEDS: Aspirin Enteric Coated 81 MG Tablet PO SCH (08:55)
[2019-02-09] MEDS: Metoprolol XL (24 HR) Succ 50 MG TAB.ER.24H PO SCH (08:55)
[2019-02-09] MEDS: Insulin LISPRO 300 UNITS/3 ML VIAL SQ SCH ×4 (08:56→21:37)
[2019-02-09] MEDS: Azithromycin 500 MG in D5% in Water 250 ML IVPB SCH (16:10)
[2019-02-09] MEDS: Insulin DETEMIR 100 UNIT/ML X5UNITS SQ SCH (21:37)
[2019-02-10] MEDS: GuaiFENesin Liq 200 MG/10 ML UDC PO SCH ×4 (01:20→17:31)
[2019-02-10] MEDS: methylPREDNISolone 125 MG/2 ML VIAL IVP SCH ×3 (01:20→15:00)
[2019-02-10] MEDS: Ipratropium/Albuterol Neb 3 ML IH SCH ×4 (04:18→15:30)
[2019-02-10 05:49] LABS: Basophils % 0.1 %; Hematocrit 39.9 % (35.3-44.9); Hemoglobin 12.5 g/dL (11.5-15.4); Immature Granulocytes % 0.8 % (0-4); Lymphocytes # 0.3 K/mcL (0.6-4.6); Lymphocytes % 2.2 %; Mean Corpuscular HGB Conc 31.3 g/dL (31.6-35.5); Mean Corpuscular Hemoglobin 28.6 pg (28.0-33.3); Mean Corpuscular Volume 91.3 fL (83.0-100.0); Mean Platelet Volume 10.1 fL (9.4-12.4); Monocytes # 0.4 K/mcL (0.0-1.3); Neutrophils # 11.1 K/mcL (1.6-8.9); Platelet Count 282 K/mcL (140-400); Red Blood Count 4.37 M/mcL (3.82-4.97); Red Cell Distribution Width 14.3 % (11.5-14.5); Segmented Neutrophils % 93.9 %; White Blood Count 11.9 K/mcL (4.3-11.1)
[2019-02-10 06:08] LABS: Calcium 9.4 mg/dL (8.6-10.3); Potassium 4.8 mEq/L (3.5-5.1)
[2019-02-10] MEDS: *HR* Heparin 5,000 UNIT/ML VIAL SQ SCH ×2 (06:28→17:31)
[2019-02-10] MEDS: Budesonide/Formoterol 160/4.5 1 PUFF INH IH SCH (07:45)
[2019-02-10] MEDS: Aspirin Enteric Coated 81 MG Tablet PO SCH (10:14)
[2019-02-10] MEDS: Metoprolol XL (24 HR) Succ 50 MG TAB.ER.24H PO SCH (10:14)
[2019-02-10] MEDS: Insulin LISPRO 300 UNITS/3 ML VIAL SQ SCH ×3 (10:15→16:16)
[2019-02-10] MEDS: Azithromycin 500 MG in D5% in Water 250 ML IVPB SCH (15:00)
[2019-02-10 15:44] VITALS: BP 146/71
[2019-02-11 16:11] LABS: Total Volume 24 Hour,Urine 1.05 Liters (0.60-1.60)
[2019-02-11 17:12] LABS: Sodium, Urine 29.6 mEq/L
== END 2019-02-10 19:56 | disposition home or self-care (01) | DRG 291 ==
LOC: 3BNU 09:53 → EMEROOARM 09:53 → SUATTDRO 12:31 → 3BNU 12:55
PROVIDERS: ADMIT Student in an Organized Health Care Education/Training Program; ATTEND Hospitalist

== ENCOUNTER 2019-05-11 10:14 | Inpatient (IN) ==
[2019-05-11] MEDS ORDERED: Ipratropium/Albuterol Neb 3 ML IH ONE (10:39)
[2019-05-11 10:47] LABS: Basophils # 0.1 K/mcL (0.0-0.2); Basophils % 0.8 %; Eosinophils # 0.2 K/mcL (0.0-0.6); Eosinophils % 2.8 %; Hematocrit 32.5 % (35.3-44.9); Hemoglobin 10.3 g/dL (11.5-15.4); Immature Granulocytes % 0.4 % (0-4); Lymphocytes # 0.8 K/mcL (0.6-4.6); Lymphocytes % 11.1 %; Mean Corpuscular HGB Conc 31.7 g/dL (31.6-35.5); Mean Corpuscular Hemoglobin 30.3 pg (28.0-33.3); Mean Corpuscular Volume 95.6 fL (83.0-100.0); Mean Platelet Volume 9.4 fL (9.4-12.4); Monocytes # 0.4 K/mcL (0.0-1.3); Monocytes % 5.4 %; Neutrophils # 6.1 K/mcL (1.6-8.9); Platelet Count 376 K/mcL (140-400); Red Cell Distribution Width 15.5 % (11.5-14.5); Segmented Neutrophils % 79.5 %; White Blood Count 7.6 K/mcL (4.3-11.1)
[2019-05-11 10:57] LABS: INR 1.1; Prothrombin Time 12.9 Seconds (9.4-12.1)
[2019-05-11 10:59] LABS: Activated Partial Thrombo Time 32.7 Seconds (26.0-36.0)
[2019-05-11 11:02] LABS: Bilirubin,Urine Negative (Negative); Blood,Urine Small (Negative); Clarity,Urine Cloudy (Clear); Color,Urine Yellow (Yellow); Glucose,Urine (UA) Normal (Normal); Ketones,Urine Negative (Negative); Leukocyte Esterase,Urine Large (Negative); Nitrite,Urine Negative (Negative); PH,Urine 5.5 pH Units (5.0-8.0); Protein,Urine Negative (Neg-Trace); Specific Gravity,Urine 1.006 (1.010-1.025); Urobilinogen,Urine Normal (Normal)
[2019-05-11 11:05] LABS: Bacteria,Urine Many per hpf (None-Few); Hyaline Casts,Urine None Seen per lpf (None-Few); Squamous Epithelial Cell,Urine Many per lpf (None-Few); WBC,Urine TNTC per hpf (0-3)
[2019-05-11 11:06] LABS: Alanine Aminotransferase 19 Units/L (7-52); Albumin 4.1 g/dL (3.5-5.7); Albumin/Globulin Ratio 1.6 (1.1-2.2); Alkaline Phosphatase 87 Units/L (34-104); Aspartate Amino Transferase 19 Units/L (13-39); BUN/Creatinine Ratio 16 (6-26); Bilirubin,Direct 0.1 mg/dL (0.0-0.2); Bilirubin,Indirect 0.3 mg/dL (0.0-1.2); Bilirubin,Total 0.4 mg/dL (0.3-1.0); Blood Urea Nitrogen 16 mg/dL (8-23); Calcium 10.2 mg/dL (8.6-10.3); Carbon Dioxide 27 mEq/L (23-29); Chloride 101 mEq/L (98-107); Globulin 2.5 g/dL (2.4-3.5); Glucose 160 mg/dL (70-105); Lipase 17 Units/L (11-82); Magnesium 2.2 mg/dL (1.6-2.6); Osmolality,Calculated 289 (280-300); Phosphorous 3.9 mg/dL (2.7-4.5); Potassium 4.5 mEq/L (3.5-5.1); Sodium 137 mEq/L (136-145); Total Protein 6.6 g/dL (6.4-8.9); Troponin I < 0.03 ng/mL (< 0.04); eGFR For African Americans > 60 (> 60); eGFR For Non-African Americans 53 (> 60)
[2019-05-11 11:31] LABS: RBC,Urine 0-3 per hpf (0-3)
[2019-05-11 11:32] LABS: Yeast,Urine Few per hpf (None Seen)
[2019-05-11] MEDS ORDERED: Isovue-370 500 ML BOTTLE IVP ONE (11:32)
[2019-05-11] MEDS ORDERED: Gentamicin 340 MG in 0.9 % Sodium Chloride 100 ML IVPB SCH (12:00)
[2019-05-11] MEDS ORDERED: Gentamicin 340 MG in 0.9 % Sodium Chloride 100 ML IVPB ONE (12:09)
[2019-05-11] MEDS ORDERED: Aspirin 81 MG TAB.CHEW PO STA (13:06)
[2019-05-11] MEDS ORDERED: Azithromycin 500 MG in D5% in Water 250 ML IVPB ONE (13:22)
[2019-05-11] MEDS ORDERED: Naloxone 0.4 MG/ML INJ IVP PRN (14:06)
[2019-05-11] MEDS ORDERED: Ipratropium/Albuterol Neb 3 ML IH PRN (14:11)
[2019-05-11] MEDS ORDERED: Dextrose Gel 15 GM/37.5 ML TUBE PO PRN ×2 (14:12)
[2019-05-11] MEDS ORDERED: *HR* Dextrose 50 % in Water (Syg) 50 ML SYRINGE IVP PRN (14:12)
[2019-05-11] MEDS ORDERED: D5% in Water 1,000 ML IVC PRN (14:12)
[2019-05-11] MEDS ORDERED: Metoclopramide 10 MG/2 ML VIAL IVP PRN (16:12)
[2019-05-11] MEDS ORDERED: Ringers Solution, Lactated 1,000 ML IVC SCH (16:15)
[2019-05-11] MEDS: Ertapenem 1,000 MG in 0.9 % Sodium Chloride Mini Bag 100 ML IVPB SCH (16:28)
[2019-05-11] MEDS ORDERED: Insulin LISPRO 300 UNITS/3 ML VIAL SQ SCH (16:30)
[2019-05-11] MEDS ORDERED: D5% in Lactated Ringers 1,000 ML IVC SCH (16:45)
[2019-05-11] MEDS: Insulin LISPRO 300 UNITS/3 ML VIAL SQ SCH (17:06)
[2019-05-11 18:58] LABS: ABG Base Excess 6 mEq/L (-2 to 3); ABG HCO3 31 mEq/L (21-27); ABG Oxygen Saturation 99 % (95-98); ABG PCO2 48 mmHg (35-45); ABG PH 7.43 pH Units (7.32-7.45); ABG PO2 114 mmHg (85-104); ABG TCO2 33 mEq/L (20-26)
[2019-05-11] MEDS ORDERED: Insulin DETEMIR 100 UNIT/ML X5UNITS SQ SCH (21:00)
[2019-05-11] MEDS ORDERED: Apixaban 5 MG TABLET PO SCH (21:00)
[2019-05-11] MEDS: Apixaban 5 MG TABLET GTUBE SCH (21:41)
[2019-05-12] MEDS: Insulin LISPRO 300 UNITS/3 ML VIAL SQ SCH ×4 (00:10→17:54)
[2019-05-12 04:58] LABS: Basophils # 0.1 K/mcL (0.0-0.2); Basophils % 0.9 %; Eosinophils # 0.5 K/mcL (0.0-0.6); Eosinophils % 8.3 %; Hematocrit 29.2 % (35.3-44.9); Hemoglobin 9.1 g/dL (11.5-15.4); Immature Granulocytes % 0.4 % (0-4); Lymphocytes # 1.1 K/mcL (0.6-4.6); Lymphocytes % 20.6 %; Mean Corpuscular HGB Conc 31.2 g/dL (31.6-35.5); Mean Corpuscular Hemoglobin 30.3 pg (28.0-33.3); Mean Corpuscular Volume 97.3 fL (83.0-100.0); Mean Platelet Volume 9.2 fL (9.4-12.4); Monocytes # 0.5 K/mcL (0.0-1.3); Monocytes % 9.6 %; Neutrophils # 3.3 K/mcL (1.6-8.9); Platelet Count 319 K/mcL (140-400); Red Cell Distribution Width 15.7 % (11.5-14.5); Segmented Neutrophils % 60.2 %; White Blood Count 5.4 K/mcL (4.3-11.1)
[2019-05-12 05:14] LABS: BUN/Creatinine Ratio 13 (6-26); Blood Urea Nitrogen 12 mg/dL (8-23); Calcium 9.5 mg/dL (8.6-10.3); Carbon Dioxide 28 mEq/L (23-29); Chloride 104 mEq/L (98-107); Glucose 121 mg/dL (70-105); Magnesium 2.1 mg/dL (1.6-2.6); Osmolality,Calculated 291 (280-300); Phosphorous 3.9 mg/dL (2.7-4.5); Potassium 4.2 mEq/L (3.5-5.1); Sodium 140 mEq/L (136-145); eGFR For African Americans > 60 (> 60); eGFR For Non-African Americans 56 (> 60)
[2019-05-12] MEDS: Ertapenem 1,000 MG in 0.9 % Sodium Chloride Mini Bag 100 ML IVPB SCH (08:13)
[2019-05-12] MEDS: Apixaban 5 MG TABLET GTUBE SCH ×2 (08:13→20:13)
[2019-05-12] MEDS: Pantoprazole 40 MG VIAL IVP SCH (08:13)
[2019-05-12] MEDS: Budesonide/Formoterol 160/4.5 1 PUFF INH IH SCH (21:30)
[2019-05-13] MEDS: Insulin LISPRO 300 UNITS/3 ML VIAL SQ SCH ×5 (00:15→23:29)
[2019-05-13 04:11] LABS: Basophils # 0.1 K/mcL (0.0-0.2); Basophils % 1.2 %; Eosinophils # 0.5 K/mcL (0.0-0.6); Eosinophils % 8.1 %; Hemoglobin 9.5 g/dL (11.5-15.4); Immature Granulocytes % 0.2 % (0-4); Lymphocytes % 17.3 %; Mean Corpuscular HGB Conc 30.6 g/dL (31.6-35.5); Mean Corpuscular Hemoglobin 30.4 pg (28.0-33.3); Mean Platelet Volume 9.2 fL (9.4-12.4); Monocytes # 0.5 K/mcL (0.0-1.3); Monocytes % 8.1 %; Neutrophils # 3.8 K/mcL (1.6-8.9); Platelet Count 310 K/mcL (140-400); Red Blood Count 3.13 M/mcL (3.82-4.97); Red Cell Distribution Width 15.7 % (11.5-14.5); Segmented Neutrophils % 65.1 %; White Blood Count 5.8 K/mcL (4.3-11.1)
[2019-05-13 04:28] LABS: BUN/Creatinine Ratio 13 (6-26); Blood Urea Nitrogen 11 mg/dL (8-23); Calcium 9.2 mg/dL (8.6-10.3); Carbon Dioxide 26 mEq/L (23-29); Chloride 105 mEq/L (98-107); Glucose 123 mg/dL (70-105); Magnesium 1.9 mg/dL (1.6-2.6); Osmolality,Calculated 287 (280-300); Phosphorous 3.5 mg/dL (2.7-4.5); Sodium 138 mEq/L (136-145); eGFR For African Americans > 60 (> 60); eGFR For Non-African Americans > 60 (> 60)
[2019-05-13] MEDS: Pantoprazole 40 MG VIAL IVP SCH (07:22)
[2019-05-13] MEDS: Ertapenem 1,000 MG in 0.9 % Sodium Chloride Mini Bag 100 ML IVPB SCH (07:23)
[2019-05-13] MEDS: Apixaban 5 MG TABLET GTUBE SCH ×2 (07:25→21:52)
[2019-05-13] MEDS ORDERED: Bisacodyl 10 MG RECTAL SUPPOSITORY RC PRN (07:43)
[2019-05-13] MEDS ORDERED: NON-FORMULARY MEDICATION 1 EACH EACH (Ezetimibe [Zetia] 10 MG) GTUBE SCH (09:00)
[2019-05-13] MEDS: Budesonide/Formoterol 160/4.5 1 PUFF INH IH SCH ×2 (10:06→22:07)
[2019-05-13] MEDS ORDERED: Ondansetron 4 MG/2 ML VIAL IVP PRN (10:18)
[2019-05-13] MEDS: Metoclopramide 10 MG/10 ML UD.LIQ GTUBE SCH ×3 (11:52→21:52)
[2019-05-13] MEDS ORDERED: Melatonin 3 MG TABLET GTUBE SCH (21:00)
[2019-05-14] MEDS: Insulin LISPRO 300 UNITS/3 ML VIAL SQ SCH ×2 (05:17→12:55)
[2019-05-14] MEDS: Budesonide/Formoterol 160/4.5 1 PUFF INH IH SCH (08:00)
[2019-05-14] MEDS: Apixaban 5 MG TABLET GTUBE SCH (10:16)
[2019-05-14] MEDS: Pantoprazole 40 MG VIAL IVP SCH (10:16)
[2019-05-14] MEDS: Ertapenem 1,000 MG in 0.9 % Sodium Chloride Mini Bag 100 ML IVPB SCH (10:17)
[2019-05-14] MEDS: Metoclopramide 10 MG/10 ML UD.LIQ GTUBE SCH ×2 (10:26→12:21)
[2019-05-14 10:59] VITALS: BP 165/68
== END 2019-05-14 18:03 | DRG 689 ==
LOC: EMEROOARM 10:14 → SUATTDRO 14:35 → 3ANU 14:35
PROVIDERS: ADMIT Internal Medicine; ATTEND Internal Medicine

== ENCOUNTER 2019-05-24 17:31 | Observation (INO) ==
--- NOTE | 2019-05-24 17:48 | Emergency Department Note ---
Disposition Clinical Impression: Syncope Qualifiers: Syncope type: unspecified Qualified Code(s): R55 - Syncope and collapse Urinary tract infection Qualifiers: Urinary tract infection type: acute cystitis Hematuria presence: without hematuria Qualified Code(s): N30.00 - Acute cystitis without hematuria Disposition: Admitted As Inpatient Time of Disposition: 20:56 Syncope HPI - General Stated Complaint: Syncope, N/V Time Seen by Provider: 05/24/19 17:41 Source: patient, EMS Mode of arrival: EMS Limitations: no limitations Nursing Notes Reviewed: Yes Vital Signs Reviewed: Yes - History of Present Illness HPI Narrative: 79-year-old female past medical history of diabetes presenting for a 2 day history of nausea vomiting and syncopal episode. The patient states she has had no abdominal pain no fever chills no other symptoms but notes that she has vomited increasingly over the past 2 days the point where she passed out today. Patient states she also feels that she has had some abdominal swelling and no shows a history of aortic aneurysm. Patient has no other concerns or complaints at this time. Upon my initial evaluation, my general impression is that the patient is awake, alert, oriented, engaged to conversation and answering questions appropriately. There are no overt lateralizing signs, the patient is in no acute distress; their skin appears to be normal in color, they are not pale, not cyanotic, and not diaphoretic, they are sitting up in hospital bed interacting appropriately with environment. Pt Subjective Complaint: loss of consciousness Onset (ago): day(s) Prodromal Symptoms: none - Related Data Home Medications Medication Instructions Recorded Confirmed Albuterol Sulfate [Ventolin Hfa] 1 puff IH Q6H PRN 05/11/19 05/11/19 Apixaban [Eliquis] 5 mg GTUBE Q12H 05/11/19 05/11/19 Bisacodyl [Dulcolax] 10 mg RC DAILY PRN 05/11/19 05/11/19 Clopidogrel Bisulfate [Plavix] 75 mg GTUBE DAILY 05/11/19 05/11/19 Ezetimibe [Zetia] 10 mg GTUBE DAILY 05/11/19 05/11/19 Fluticasone/Vilanterol [Breo 1 each IH DAILY 05/11/19 05/11/19 Ellipta 100-25 Mcg INH] Ibuprofen [Ibu] 400 mg PO Q8H PRN 05/11/19 05/11/19 Insulin ASPART [NovoLOG] 0 unit SQ QPM 05/11/19 05/11/19 Ipratropium/Albuterol Neb [Duoneb] 3 ml IH Q6H PRN 05/11/19 05/11/19 Loperamide HCl [Imodium A-D] 2 mg PO PRN PRN 05/11/19 05/11/19 Melatonin 3 mg GTUBE HS 05/11/19 05/11/19 Metoclopramide [Reglan] 5 mg GTUBE QIDAC 05/11/19 05/11/19 Modafinil [Provigil] 100 mg GTUBE BID 05/11/19 05/11/19 Ondansetron HCl [Zofran] 4 mg GTUBE Q6H PRN 05/11/19 05/11/19 Sertraline [Zoloft] 50 mg GTUBE DAILY 05/11/19 05/11/19 Previous Rx's Medication Instructions Recorded Fosfomycin Tromethamine [Monurol] 3 gm PO Q48H #3 packet 05/14/19 Allergies Allergy/AdvReac Type Severity Reaction Status Date / Time codeine AdvReac See Verified 05/11/19 10:32 Comments morphine AdvReac Nausea Verified 05/11/19 10:32 promethazine [From Phenergan] AdvReac Confusion Verified 05/11/19 10:32 propoxyphene AdvReac Nausea Verified 05/11/19 10:32 [From Darvocet-N] Review of Systems: *See History of Present Illness for more detail Constitutional: Admits to syncope Denies: fever, chills Cardiovascular: Denies: chest pain Respiratory: Denies: dyspnea, cough, hemoptysis Gastrointestinal: Admits: abdominal pain, nausea, vomiting, denies: hematemesis, melena, hematochezia Genitourinary: Denies: hematuria Musculoskeletal: Denies: back pain, neck pain Neurological: Denies: headache, weakness, lightheadedness/dizziness, numbness, paresthesias, difficulty with ambulation. Endocrine: Denies: fatigue All systems ED: reviewed and negative except as stated. Review of Systems: As Per HPI Past Medical History - Past Medical History Medical history: Reports: aortic aneurysm, arthritis, CHF, COPD, coronary artery disease, CVA, diabetes, hyperlipidemia, myocardial infarction, renal disease, other Surgical history: Reports: appendectomy, cholecystectomy, colectomy, coronary bypass (CABG), heart valve replacement, hysterectomy, knee replacement, other, pacemaker Psychiatric history: Reports: anxiety, depression [employer] history: Reports: non-contributory - Social History Smoking Status: Never smoker Smokeless Tobacco Status: No Alcohol use: Reports: none Drug use: Reports: none Physical Exam Constitutional: No acute distress, [id number], engaged to conversation, speech is fluid, answers questions appropriately Neuro: GCS 15, no overt focal neurological deficits Head: Atraumatic, normocephalic Eyes: Pupils equal, round and reactive to light, no scleral icterus, no conjunctival injection Mouth: No lip swelling, perioral cyanosis, drooling, or trismus. Neck: Trachea midline without deviation. Anterior neck is supple without swelling, no overt thyromegaly noted. Chest: Symmetric chest wall rise Heart: Cardiac rhythm and rate are regular with S1 and S2 , no S3 or S4 appreciated, no murmurs, rubs, or clicks. Lungs: Lungs are clear to auscultation bilaterally, without accessory muscle use or prolonged expiratory phase. No wheezes, rhonchi, rales or stridor appreciated. *Abdomen: Abdomen is flat, soft to palpation, normal bowel sounds, no evidence of bruising, surgical incisions, or abnormal mass. No abdominal bruit auscultated. Non-distended, non-rigid, no organomegaly, no ascites appreciated. No pulsatile mass, no tenderness or guarding to palpation in all four quadrants, no rebound Extremities: No evidence of pedal edema, joint swelling or erythema. Pulses/motor intact in all 4 extremities. Back exam: No CVA tenderness. Psychiatric exam: Patient displays a normal affect and mood for the environment. No overt signs of hallucination. Integumentary: warm, dry, intact, normal color. No rash, cyanosis, diaphoresis, erythema, or pallor - General Limitations: no limitations General appearance: alert, in no apparent distress Course Course Narrative: Abdominal labs, head CT, abdominal CT, chest x-ray, EKG/old EKG Zofran for management of patient's symptoms. - Reevaluation(s) Reevaluation #1: Patient found to have acute kidney injury and UTI. I will give her a gram of ceftriaxone at this time. Vital Signs Temperature 98.5 F 05/24/19 17:37 Pulse Rate 71 05/24/19 17:37 Respiratory Rate 20 05/24/19 17:37 Blood Pressure 136/72 05/24/19 17:37 O2 Sat by Pulse Oximetry 98 05/24/19 17:37 Temperature 98.5 F 05/24/19 17:37 Pulse Rate 71 05/24/19 17:37 Respiratory Rate 20 05/24/19 17:37 Blood Pressure 136/72 05/24/19 17:37 O2 Sat by Pulse Oximetry 100 05/24/19 19:00 Oxygen Delivery Oxygen Delivery Room Air Syncope - MDM Narrative Medical decision making narrative: The patients EKG, imaging, and laboratory results show acute kidney injury with your tract infection . Evaluation results were discussed with the patient and their family member(s) at bedside. Patient was given time to ask questions and state concerns. The patient states that they have had significant relief of their symptoms with our management here in the ED. The patient will be admitted to the hospitalist medicine service for further evaluation and management of syncopal episode in the setting of UTI and acute kidney injury. The patient verbalizes their understanding and agreement with this plan and is hemodynamically stable at the time of admission. - Lab Data Lab results reviewed: Yes I reviewed the patient's lab results. Result diagrams: 05/24/19 18:27 05/24/19 18:27 Lab Results 05/24/19 05/24/19 05/24/19 Range/Units 18:27 18:27 18:27 WBC 7.1 (4.3-11.1) K/mcL RBC 3.15 L (3.82-4.97) M/mcL Hgb 9.7 L (11.5-15.4) g/dL Hct 31.2 L (35.3-44.9) % MCV 99.0 (83.0-100.0) fL MCH 30.8 (28.0-33.3) pg MCHC 31.1 L (31.6-35.5) g/dL RDW 14.7 H (11.5-14.5) % Plt Count 286 (140-400) K/mcL MPV 9.5 (9.4-12.4) fL Immature Gran % 0.3 (0-4) % Seg Neutrophils % 73.7 % Lymphocytes % 13.6 % Monocytes % 6.6 % Eosinophils % 4.8 % Basophils % 1.0 % Neutrophils # 5.2 (1.6-8.9) K/mcL Lymphocytes # 1.0 (0.6-4.6) K/mcL Monocytes # 0.5 (0.0-1.3) K/mcL Eosinophils # 0.3 (0.0-0.6) K/mcL Basophils # 0.1 (0.0-0.2) K/mcL PT 13.0 H (9.4-12.1) Seconds INR 1.1 APTT 31.5 (26.0-36.0) Seconds Sodium 142 (136-145) mEq/L Potassium 3.8 (3.5-5.1) mEq/L Chloride 107 (98-107) mEq/L Carbon Dioxide 24 (23-29) mEq/L BUN 15 (8-23) mg/dL Creatinine 1.21 H (0.60-1.20) mg/dL Est GFR ( Amer) 52 L (> 60) Est GFR (Non-Af Amer) 43 L (> 60) BUN/Creatinine Ratio 12 (6-26) Glucose 148 H (70-105) mg/dL Calculated Osmolality 298 (280-300) Lactic Acid (0.5-2.2) mmol/L Calcium 9.3 (8.6-10.3) mg/dL Phosphorus 3.6 (2.7-4.5) mg/dL Magnesium 2.0 (1.6-2.6) mg/dL Total Bilirubin 0.3 (0.3-1.0) mg/dL Direct Bilirubin 0.0 (0.0-0.2) mg/dL Indirect Bilirubin 0.3 (0.0-1.2) mg/dL AST 13 (13-39) Units/L ALT 16 (7-52) Units/L Alkaline Phosphatase 65 (34-104) Units/L Troponin I < 0.03 (< 0.04) ng/mL Serum Total Protein 6.0 L (6.4-8.9) g/dL Albumin 3.7 (3.5-5.7) g/dL Globulin 2.3 L (2.4-3.5) g/dL Albumin/Globulin Ratio 1.6 (1.1-2.2) Lipase 16 (11-82) Units/L Urine Color (Yellow) Urine Clarity (Clear) Urine pH (5.0-8.0) pH Units Ur Specific [place] (1.010-1.025) Urine Protein (Neg-Trace) mg/dL Urine Glucose (UA) (Normal) mg/dL Urine Ketones (Negative) mg/dL Urine Blood (Negative) Urine Nitrite (Negative) Urine Bilirubin (Negative) Urine Urobilinogen (Normal) mg/dL Ur Leukocyte Esterase (Negative) Urine Microscopic RBC (0-3) per hpf Urine Microscopic WBC (0-3) per hpf Ur Squamous Epith Cells (None-Few) per lpf Urine Bacteria (None-Few) per hpf Hyaline Casts (None-Few) per lpf Ur Culture Indicated? (NO) Blood Type Antibody Screen 05/24/19 05/24/19 05/24/19 Range/Units 18:27 18:50 19:00 WBC (4.3-11.1) K/mcL RBC (3.82-4.97) M/mcL Hgb (11.5-15.4) g/dL Hct (35.3-44.9) % MCV (83.0-100.0) fL MCH (28.0-33.3) pg MCHC (31.6-35.5) g/dL RDW (11.5-14.5) % Plt Count (140-400) K/mcL MPV (9.4-12.4) fL Immature Gran % (0-4) % Seg Neutrophils % % Lymphocytes % % Monocytes % % Eosinophils % % Basophils % % Neutrophils # (1.6-8.9) K/mcL Lymphocytes # (0.6-4.6) K/mcL Monocytes # (0.0-1.3) K/mcL Eosinophils # (0.0-0.6) K/mcL Basophils # (0.0-0.2) K/mcL PT (9.4-12.1) Seconds INR APTT (26.0-36.0) Seconds Sodium (136-145) mEq/L Potassium (3.5-5.1) mEq/L Chloride (98-107) mEq/L Carbon Dioxide (23-29) mEq/L BUN (8-23) mg/dL Creatinine (0.60-1.20) mg/dL Est GFR ( Amer) (> 60) Est GFR (Non-Af Amer) (> 60) BUN/Creatinine Ratio (6-26) Glucose (70-105) mg/dL Calculated Osmolality (280-300) Lactic Acid 1.3 (0.5-2.2) mmol/L Calcium (8.6-10.3) mg/dL Phosphorus (2.7-4.5) mg/dL Magnesium (1.6-2.6) mg/dL Total Bilirubin (0.3-1.0) mg/dL Direct Bilirubin (0.0-0.2) mg/dL Indirect Bilirubin (0.0-1.2) mg/dL AST (13-39) Units/L ALT (7-52) Units/L Alkaline Phosphatase (34-104) Units/L Troponin I (< 0.04) ng/mL Serum Total Protein (6.4-8.9) g/dL Albumin (3.5-5.7) g/dL Globulin (2.4-3.5) g/dL Albumin/Globulin Ratio (1.1-2.2) Lipase (11-82) Units/L Urine Color Yellow (Yellow) Urine Clarity Cloudy A (Clear) Urine pH 7.0 (5.0-8.0) pH Units Ur Specific [place] 1.016 (1.010-1.025) Urine Protein 30 H (Neg-Trace) mg/dL Urine Glucose (UA) Normal (Normal) mg/dL Urine Ketones Negative (Negative) mg/dL Urine Blood Moderate H (Negative) Urine Nitrite Positive A (Negative) Urine Bilirubin Negative (Negative) Urine Urobilinogen Normal (Normal) mg/dL Ur Leukocyte Esterase Large H (Negative) Urine Microscopic RBC 5-15 H (0-3) per hpf Urine Microscopic WBC TNTC H (0-3) per hpf Ur Squamous Epith Cells Many H (None-Few) per lpf Urine Bacteria Many H (None-Few) per hpf Hyaline Casts Moderate H (None-Few) per lpf Ur Culture Indicated? YES A (NO) Blood Type A POSITIVE Antibody Screen NEGATIVE - Radiology Data Radiology results reviewed: Yes I reviewed the patient's radiology results. Abdomen/Pelvis CT 05/24/19 17:47 IMPRESSION: No acute abnormality. Small right pleural effusion. Bibasilar atelectasis. D/ / 05/24/2019 18:25:20 Jeffery Angel MD / luis Interpreting Provider: Jeffery Angel MD Chest X-Ray 05/24/19 17:47 IMPRESSION: Persistent mild CHF with bilateral perihilar edema. D/ / Thaddeus Kaplan MD / Thaddeus Kaplan MD Interpreting Provider: Thaddeus Kaplan MD Head CT 05/24/19 17:47 IMPRESSION: No acute intracranial abnormality. D/ / Jerardo Mckeon MD / Jerardo Mckeon MD Interpreting Provider: Jerardo Mckeon MD - EKG Data EKG attestation: Yes I reviewed and interpreted this EKG. EKG results narrative: The patients EKG shows a atrial paced complexes at a computer analyzed rate of 69 beats per minute, CO interval of 111 milliseconds, a QRS duration of 108 milliseconds, a QT/QTc interval of 422/ 453 milliseconds respectively. There are no significant ST segment elevations, depressions, pathologic Q waves, abnormal T-wave inversions, nor any other signs of acute ischemic change. This EKG that was performed today is generally consistent in morphology with pr ior EKG that was performed on 03/15/2018. Attestation Statement - Attestation Attestation: Patient was seen with resident physician. I reviewed the history, physical, assessment and plan, and agree with the findings. I also personally evaluated this patient and had [id number] time with this patient. 79-year-old female presents from the residential after syncopal episode and with nausea and vomiting. Patient has a history of feeding tube placement. She has had nausea and vomiting since earlier today. She had a syncopal episode. Since unclear if she was in the bed or in a chair when it happened. She is at a care facility. She denies fevers chills chest pain or short of breath. No other complaints. Review of systems as above mid are negative. Physical exam vital signs are stable. ENT is unremarkable. Heart regular rhythm and rate. Lungs clear. Abdomen is soft and nontender. Extremities unremarkable. Neurologically she is alert and moves all extremities. Skin no rashes. Psych normal. ED course. We will do a syncopal workup. We will treat for nausea and vomiting. Workup revealed urinary tract infection. Head CT scan was negative. Other lab testing was largely unremarkable. Patient also has a mild THERESE. In combination with the syncope will admit her to the hospitalist service for additional evaluation and treatment. They agreed to accept the patient. Hemodynamically she remained stable in the emergency department. I agree with the resident physician assessment and plan. ED procedures.I reviewed the patient's EKG as well as the resident physician interpretation and I agree with the findings.
[2019-05-24 18:39] LABS: Basophils # 0.1 K/mcL (0.0-0.2); Eosinophils # 0.3 K/mcL (0.0-0.6); Eosinophils % 4.8 %; Hematocrit 31.2 % (35.3-44.9); Hemoglobin 9.7 g/dL (11.5-15.4); Immature Granulocytes % 0.3 % (0-4); Lymphocytes % 13.6 %; Mean Corpuscular HGB Conc 31.1 g/dL (31.6-35.5); Mean Corpuscular Hemoglobin 30.8 pg (28.0-33.3); Mean Platelet Volume 9.5 fL (9.4-12.4); Monocytes # 0.5 K/mcL (0.0-1.3); Monocytes % 6.6 %; Neutrophils # 5.2 K/mcL (1.6-8.9); Platelet Count 286 K/mcL (140-400); Red Blood Count 3.15 M/mcL (3.82-4.97); Red Cell Distribution Width 14.7 % (11.5-14.5); Segmented Neutrophils % 73.7 %; White Blood Count 7.1 K/mcL (4.3-11.1)
[2019-05-24 18:47] LABS: INR 1.1
[2019-05-24 18:49] LABS: Activated Partial Thrombo Time 31.5 Seconds (26.0-36.0)
[2019-05-24 19:00] LABS: Alanine Aminotransferase 16 Units/L (7-52); Albumin 3.7 g/dL (3.5-5.7); Albumin/Globulin Ratio 1.6 (1.1-2.2); Alkaline Phosphatase 65 Units/L (34-104); Aspartate Amino Transferase 13 Units/L (13-39); BUN/Creatinine Ratio 12 (6-26); Bilirubin,Indirect 0.3 mg/dL (0.0-1.2); Bilirubin,Total 0.3 mg/dL (0.3-1.0); Blood Urea Nitrogen 15 mg/dL (8-23); Calcium 9.3 mg/dL (8.6-10.3); Carbon Dioxide 24 mEq/L (23-29); Chloride 107 mEq/L (98-107); Globulin 2.3 g/dL (2.4-3.5); Glucose 148 mg/dL (70-105); Lipase 16 Units/L (11-82); Osmolality,Calculated 298 (280-300); Phosphorous 3.6 mg/dL (2.7-4.5); Potassium 3.8 mEq/L (3.5-5.1); Sodium 142 mEq/L (136-145); Troponin I < 0.03 ng/mL (< 0.04); eGFR For African Americans 52 (> 60); eGFR For Non-African Americans 43 (> 60)
[2019-05-24] MEDS ORDERED: Ondansetron 4 MG/2 ML VIAL IVP ONE (19:04)
[2019-05-24 19:11] LABS: Bilirubin,Urine Negative (Negative); Blood,Urine Moderate (Negative); Clarity,Urine Cloudy (Clear); Color,Urine Yellow (Yellow); Glucose,Urine (UA) Normal (Normal); Ketones,Urine Negative (Negative); Leukocyte Esterase,Urine Large (Negative); Nitrite,Urine Positive (Negative); Protein,Urine 30 mg/dL (Neg-Trace); Specific Gravity,Urine 1.016 (1.010-1.025); Urobilinogen,Urine Normal (Normal)
[2019-05-24 19:13] LABS: Bacteria,Urine Many per hpf (None-Few); Hyaline Casts,Urine Moderate per lpf (None-Few); Squamous Epithelial Cell,Urine Many per lpf (None-Few); WBC,Urine TNTC per hpf (0-3)
[2019-05-24] MEDS ORDERED: cefTRIAXone 1,000 MG in Water for inj. (sterile) 10 ML IVP ONE (19:47)
[2019-05-25] MEDS ORDERED: Acetaminophen 325 MG TABLET PO PRN (01:26)
[2019-05-25] MEDS ORDERED: Naloxone 0.4 MG/ML INJ IVP PRN (01:26)
[2019-05-25] MEDS ORDERED: 0.9 % Sodium Chloride 1,000 ML IVC SCH ×2 (01:30→09:07)
[2019-05-25] MEDS ORDERED: Bisacodyl 10 MG RECTAL SUPPOSITORY RC PRN (01:31)
[2019-05-25] MEDS ORDERED: Ipratropium/Albuterol Neb 3 ML IH PRN (01:31)
[2019-05-25] MEDS ORDERED: Dextrose Gel 15 GM/37.5 ML TUBE PO PRN ×2 (01:32)
[2019-05-25] MEDS ORDERED: *HR* Dextrose 50 % in Water (Syg) 50 ML SYRINGE IVP PRN (01:32)
[2019-05-25] MEDS ORDERED: D5% in Water 1,000 ML IVC PRN (01:32)
--- NOTE | 2019-05-25 03:18 | Internal Med History&Physical ---
Date of Encounter: 05/25/19 Time of Encounter: 01:00 Internal Medicine - H&P: HPI Chief complaint: nausea, vomting, weakness, syncope Admitted From: Emergency Dept Plans for Post Hospital Care: Home History of present illness: Ms. Florez is a 79 year old female who presents with complaints of protracted nausea, vomiting, weakness, and syncope. Workup in the ER revealed patient to have significant findings concerning for UTI, acute kidney injury, and generalized weakness. Blood and urine cultures were obtained and she was admitted to hospitalist service after receiving antibiotics. Upon my assessment of the patient, patient appears be dehydrated, weak, but otherwise in no acute distress. She confirms above history. She denies falling or injuring herself. She states she passed out in bed. 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 However she does ambulate with a walker. She denies falling or injuring herself. She has had some subjective fevers but no chills or night sweats. She denies any diarrhea but has had protracted nausea and vomiting. She denies any cough, chest pain, or shortness of breath. Past Med Surg Social Fam HX - Past Medical History Attestation: Yes The following information was validated with the patient. Source: patient, old records reviewed Medical history: aortic aneurysm, arthritis, CHF, COPD, coronary artery disease, CVA, DVT, diabetes, hyperlipidemia, myocardial infarction, renal disease, other Additional medical history: bradycardia, Psychiatric history: anxiety, depression - Past Surgical History Surgical History: appendectomy, cholecystectomy, colectomy, coronary bypass (CABG), heart valve replacement, hysterectomy, knee replacement, other, pacemaker Additional surgical history: CABG 2007, 2008 heart valve, 2009 pacemaker, 9 inches of bowel removed, mitral valve replacement, 2 CARDIAC STENTS (JANUARY 2019) - Social History Smoking Status: Never smoker Smokeless Tobacco Status: No Alcohol use: none Drug use: none Current living situation: Home, With Family Activity Level: Uses cane/walker Recent Out of Country Travel Within the Last 8 Weeks: No - Family History Father Family Member Ethnicity: Non- Living Status: Hx Family Cardiac Disorders: No Hx Family Respiratory Disorders: No Hx Family Cancer: Yes (lung ca) Hx Family GI Disorders: No Hx Family Endocrine Disorder: No Hx Family Neuromuscular Disorders: No Hx Family Neurologic Disorders: No Hx Family HEENT Disorders: No Hx Family Autoimmune Disorders: No Mother Living Status: Hx Family Cardiac Disorders: Yes (CHF) Hx Family Respiratory Disorders: Yes (COPD) Hx Family Cancer: Yes (COLON) Hx Family GI Disorders: No Hx Family Endocrine Disorder: No Hx Family Neuromuscular Disorders: No Hx Family Neurologic Disorders: No Hx Family HEENT Disorders: No Hx Family Autoimmune Disorders: No Internal Medicine - H&P: Meds Albuterol Sulfate [Ventolin Hfa] 1 puff IH Q6H PRN 05/11/19 [History] Apixaban [Eliquis] 5 mg GTUBE Q12H 05/11/19 [History] Bisacodyl [Dulcolax] 10 mg RC DAILY PRN 05/11/19 [History] Clopidogrel Bisulfate [Plavix] 75 mg GTUBE DAILY 05/11/19 [History] Ezetimibe [Zetia] 10 mg GTUBE DAILY 05/11/19 [History] Fluticasone/Vilanterol [Breo Ellipta 100-25 Mcg INH] 1 each IH DAILY 05/11/19 [History] Ibuprofen [Ibu] 400 mg PO Q8H PRN 05/11/19 [History] Insulin ASPART [NovoLOG] 0 unit SQ QPM 05/11/19 [History] Ipratropium/Albuterol Neb [Duoneb] 3 ml IH Q6H PRN 05/11/19 [History] Loperamide HCl [Imodium A-D] 2 mg PO PRN PRN 05/11/19 [History] Melatonin 3 mg GTUBE HS 05/11/19 [History] Modafinil [Provigil] 100 mg GTUBE BID 05/11/19 [History] Ondansetron HCl [Zofran] 4 mg GTUBE Q6H PRN 05/11/19 [History] Sertraline [Zoloft] 50 mg GTUBE DAILY 05/11/19 [History] Pantoprazole Sodium [Protonix] 40 mg PO DAILY 05/24/19 [History] Allergy/AdvReac Type Severity Reaction Status Date / Time codeine AdvReac See Verified 05/11/19 10:32 Comments morphine AdvReac Nausea Verified 05/11/19 10:32 promethazine [From Phenergan] AdvReac Confusion Verified 05/11/19 10:32 propoxyphene AdvReac Nausea Verified 05/11/19 10:32 [From [facility]] - Constitutional Constitutional: fatigue, fever(s), weakness, no chills, no night sweats - EENT Eyes: no blurry vision, no change in vision Ears: no ear pain, no tinnitus Nose, mouth and throat: no nasal congestion, no sore throat - Cardiovascular Cardiovascular ROS IM: no chest pain, no dyspnea, no dyspnea on exertion - Respiratory Respiratory: no cough, no chest congestion, no excessive phlegm production - Gastrointestinal Gastrointestinal: nausea, vomiting, no abdominal pain, no diarrhea, no hematemesis, no hematochezia, no melena - Genitourinary Genitourinary: dysuria, no flank pain, no hematuria - Musculoskeletal Musculoskeletal ROS IM: no arthralgias, no back pain - Integumentary Integumentary IM: no rash, no jaundice - Neurological Neurological ROS: no dizziness, no focal weakness, no frequent falls, no headache(s) - Psychiatric Psychiatric: no anxiety, no depression - Endocrine Endocrine IM: no polydipsia, no polyphagia, no polyuria - Allergic/Immunologic Allergic/Immunologic: no GI upset with certain foods - Constitutional Vitals: Temp Pulse Resp BP Pulse Ox 97.7 F 62 15 159/77 99 05/24/19 23:01 05/24/19 23:01 05/24/19 23:01 05/24/19 23:01 05/24/19 23:01 General appearance: Present: cooperative, A&O X 3, pleasant, answers questions appropriately Exam: appears dry; weak; no acute distress - Head Head exam: Present: atraumatic, normal inspection - Eye Eye exam: Present: EOMI, PERRL. Absent: scleral icterus Pupils: Present: normal accommodation - ENT ENT exam: Present: mucous membranes dry, normal exam, normal oropharynx - Neck Neck exam general surgery: Present: full ROM, supple, trachea midline. Absent: tenderness, nuchal rigidity, thyromegaly - Respiratory Respiratory exam: Present: rhonchi. Absent: accessory muscle use, chest wall te nderness, CTAB, rales, wheezes, tachypnea - Cardiovascular Cardiovascular exam: Present: distant heart sounds, +S1, +S2, systolic murmur. Absent: diastolic murmur - GI/Abdominal GI/Abdominal exam: Present: normal bowel sounds, soft. Absent: guarding, hepatomegaly, mass, rebound, splenomegaly, tenderness Additional comments: PEG tube in place - Extremities Exam Extremities exam: Present: normal capillary refill, warm, radial pulses palpable and symmetrical. Absent: calf tenderness, joint swelling, pedal edema, tenderness - Back Exam Back exam: Absent: CVA tenderness (L), CVA tenderness (R) - Neurological Exam Neurological exam: Present: alert, oriented X3, speech deficit (mild). Absent: facial droop - Psychiatric Psychiatric exam: Present: flat affect - Skin Skin exam: Present: dry, intact, warm Internal Med - H&P Results - Labs CBC & Chem 7: 05/25/19 04:14 05/25/19 04:14 Labs: Short CBC 05/24/19 Range/Units 18:27 WBC 7.1 (4.3-11.1) K/mcL Hgb 9.7 L (11.5-15.4) g/dL Hct 31.2 L (35.3-44.9) % Plt Count 286 (140-400) K/mcL Neutrophils # 5.2 (1.6-8.9) K/mcL BMP 05/24/19 18:27 Sodium 142 Potassium 3.8 Chloride 107 Carbon Dioxide 24 BUN 15 Creatinine 1.21 H Glucose 148 H Calcium 9.3 Cardiac Enzymes 05/24/19 Range/Units 18:27 Troponin I < 0.03 (< 0.04) ng/mL Liver Function 05/24/19 Range/Units 18:27 Total Bilirubin 0.3 (0.3-1.0) mg/dL Direct Bilirubin 0.0 (0.0-0.2) mg/dL AST 13 (13-39) Units/L ALT 16 (7-52) Units/L Alkaline Phosphatase 65 (34-104) Units/L Albumin 3.7 (3.5-5.7) g/dL Urine 05/24/19 Range/Units 19:00 Urine Color Yellow (Yellow) Urine Clarity Cloudy A (Clear) Urine pH 7.0 (5.0-8.0) pH Units Ur Specific [place] 1.016 (1.010-1.025) Urine Protein 30 H (Neg-Trace) mg/dL Urine Glucose (UA) Normal (Normal) mg/dL - Impressions ITS Impressions Abdomen/Pelvis CT 05/24/19 17:47 IMPRESSION: No acute abnormality. Small right pleural effusion. Bibasilar atelectasis. D/ / 05/24/2019 18:25:20 Jeffery Angel MD / luis Interpreting Provider: Jeffery Angel MD Chest X-Ray 05/24/19 17:47 IMPRESSION: Persistent mild CHF with bilateral perihilar edema. D/ / Thaddeus Kaplan MD / Thaddeus Kaplan MD Interpreting Provider: Thaddeus Kaplan MD Head CT 05/24/19 17:47 IMPRESSION: No acute intracranial abnormality. D/ / Jerardo Mckeon MD / Jerardo Mckeon MD Interpreting Provider: Jerardo Mckeon MD - Diagnostic Studies Chest x-ray Status: image reviewed by me (disagree with CHF interpretation per radiology; concerning for LLL infiltrate) - Assessment and Plan (1) Pneumonia Current Visit: Yes Status: Suspected Assessment and plan: 1. Blood cultures obtained; will order sputum culture if able to collect. 2. Continue Rocephin; add Zithromax. 3. Oxygen, aerosols PRN. 4. NPO; speech consult for dysphagia assessment; all feeds/meds per PEG for now. Qualifiers: Pneumonia type: due to unspecified organism Laterality: left Lung location: lower lobe of lung Qualified Code(s): J18.1 - Lobar pneumonia, unspecified organism (2) Syncope Current Visit: Yes Status: Acute Assessment and plan: 1. Patient had ECHO and Carotid Doppler recently; no need to repeat. 2. Monitor on telemetry. 3. Monitor glucose and BP. 4. Will trend troponins. Qualifiers: Syncope type: unspecified Qualified Code(s): R55 - Syncope and collapse (3) UTI (urinary tract infection) Current Visit: Yes Status: Acute Assessment and plan: 1. Cultures obtained. 2. Antibiotics as above. 3. Monitor clinically and follow cultures. Qualifiers: Urinary tract infection type: acute cystitis Hematuria presence: without hematuria Qualified Code(s): N30.00 - Acute cystitis without hematuria (4) Acute kidney failure Current Visit: Yes Status: Acute Assessment and plan: 1. Monitor renal function, I/O, and avoid nephrotoxins. 2. Consult nephrology if not improving. Qualifiers: Acute renal failure type: unspecified Qualified Code(s): N17.9 - Acute kidney failure, unspecified (5) DVT prophylaxis Current Visit: Yes Status: Acute Assessment and plan: 1. On home dosing of Eliquis.
[2019-05-25 04:36] LABS: Basophils # 0.1 K/mcL (0.0-0.2); Basophils % 0.9 %; Eosinophils # 0.5 K/mcL (0.0-0.6); Eosinophils % 7.1 %; Hematocrit 30.8 % (35.3-44.9); Hemoglobin 9.7 g/dL (11.5-15.4); Immature Granulocytes % 0.3 % (0-4); Lymphocytes % 14.3 %; Mean Corpuscular HGB Conc 31.5 g/dL (31.6-35.5); Mean Corpuscular Hemoglobin 30.8 pg (28.0-33.3); Mean Corpuscular Volume 97.8 fL (83.0-100.0); Mean Platelet Volume 9.4 fL (9.4-12.4); Monocytes # 0.6 K/mcL (0.0-1.3); Monocytes % 8.2 %; Neutrophils # 4.8 K/mcL (1.6-8.9); Platelet Count 274 K/mcL (140-400); Red Blood Count 3.15 M/mcL (3.82-4.97); Red Cell Distribution Width 14.6 % (11.5-14.5); Segmented Neutrophils % 69.2 %; White Blood Count 6.9 K/mcL (4.3-11.1)
[2019-05-25 04:55] LABS: Alanine Aminotransferase 15 Units/L (7-52); Albumin 3.6 g/dL (3.5-5.7); Albumin/Globulin Ratio 1.5 (1.1-2.2); Alkaline Phosphatase 56 Units/L (34-104); Aspartate Amino Transferase 12 Units/L (13-39); BUN/Creatinine Ratio 11 (6-26); Bilirubin,Total 0.3 mg/dL (0.3-1.0); Blood Urea Nitrogen 12 mg/dL (8-23); Calcium 9.2 mg/dL (8.6-10.3); Carbon Dioxide 25 mEq/L (23-29); Chloride 109 mEq/L (98-107); Globulin 2.4 g/dL (2.4-3.5); Glucose 119 mg/dL (70-105); Magnesium 2.1 mg/dL (1.6-2.6); Osmolality,Calculated 291 (280-300); Potassium 3.9 mEq/L (3.5-5.1); Sodium 140 mEq/L (136-145); eGFR For African Americans 59 (> 60); eGFR For Non-African Americans 49 (> 60)
[2019-05-25] MEDS: Insulin LISPRO 300 UNITS/3 ML VIAL SQ SCH ×3 (05:50→18:59)
[2019-05-25 06:11] LABS: Troponin I < 0.03 ng/mL (< 0.04)
[2019-05-25] MEDS: Azithromycin 500 MG in 0.9 % Sodium Chloride 250 ML IVPB SCH (06:15)
[2019-05-25] MEDS: Ondansetron 4 MG/2 ML VIAL IVP PRN (06:20)
[2019-05-25] MEDS: Budesonide/Formoterol 80/4.5 1 PUFF INH IH SCH (07:35)
[2019-05-25 08:51] LABS: Estimated Average Glucose 134 mg/dl
[2019-05-25] MEDS ORDERED: cefTRIAXone 2,000 MG in Water for inj. (sterile) 20 ML IVP SCH (09:00)
[2019-05-25] MEDS ORDERED: NON-FORMULARY MEDICATION 1 EACH EACH (Ezetimibe [Zetia] 10 MG) GTUBE SCH (09:00)
[2019-05-25] MEDS: Apixaban 5 MG TABLET GTUBE SCH ×2 (09:17→21:44)
[2019-05-25] MEDS ORDERED: E-Z-PAQUE (BARIUM SULF) SUSP 1 BOTTLE PO ONE (10:48)
[2019-05-25] MEDS ORDERED: E-Z-HD (BARIUM SULF) SUSPENSION PO ONE (10:48)
[2019-05-25] MEDS ORDERED: Ondansetron 4 MG/2 ML VIAL IVP ONE (11:38)
--- NOTE | 2019-05-25 14:32 | Event Note ---
Date of Encounter: 05/25/19 Time of Encounter: 11:00 Seen at bedside. H & P reviewed. Passed barium swallow and started on diet. LAbs reviewed, troponins reviewed as negative. Continue the current antibiotics.
[2019-05-25] MEDS: Melatonin 3 MG TABLET GTUBE SCH (21:44)
[2019-05-26] MEDS: Insulin LISPRO 300 UNITS/3 ML VIAL SQ SCH ×5 (00:09→21:39)
--- NOTE | 2019-05-26 00:23 | Electrocardiograph Report ---
[place] [employer] [facility] Test Date: 2019-05-24 Pat Name: Delores Florez Department: [id number] Room: 3A13 Gender: F Batcher Operator: : [id number] Requested By: Eric Oropeza Order Number: [id number] Reading MD: Sudhir Parks Measurements Intervals [place] Rate: 69 P: LA: 111 QRS: 24 QRSD: 108 T: 50 QT: 422 QTc: 453 Interpretive Statements Atrial-paced complexes Electronically Signed On 05-26-2019 0:21:28 EDT by Sudhir Parks
[2019-05-26 04:11] LABS: Basophils # 0.1 K/mcL (0.0-0.2); Basophils % 0.8 %; Eosinophils # 0.5 K/mcL (0.0-0.6); Eosinophils % 7.6 %; Hemoglobin 9.8 g/dL (11.5-15.4); Immature Granulocytes % 0.5 % (0-4); Lymphocytes # 0.6 K/mcL (0.6-4.6); Lymphocytes % 9.8 %; Mean Corpuscular HGB Conc 31.6 g/dL (31.6-35.5); Mean Corpuscular Volume 98.1 fL (83.0-100.0); Mean Platelet Volume 9.4 fL (9.4-12.4); Monocytes # 0.5 K/mcL (0.0-1.3); Monocytes % 7.3 %; Neutrophils # 4.9 K/mcL (1.6-8.9); Platelet Count 250 K/mcL (140-400); Red Blood Count 3.16 M/mcL (3.82-4.97); Red Cell Distribution Width 14.6 % (11.5-14.5); White Blood Count 6.6 K/mcL (4.3-11.1)
[2019-05-26 04:34] LABS: BUN/Creatinine Ratio 10 (6-26); Blood Urea Nitrogen 10 mg/dL (8-23); Calcium 9.1 mg/dL (8.6-10.3); Carbon Dioxide 24 mEq/L (23-29); Chloride 107 mEq/L (98-107); Glucose 119 mg/dL (70-105); Osmolality,Calculated 288 (280-300); Potassium 3.8 mEq/L (3.5-5.1); Sodium 139 mEq/L (136-145); eGFR For African Americans > 60 (> 60); eGFR For Non-African Americans 50 (> 60)
[2019-05-26] MEDS: Azithromycin 500 MG in 0.9 % Sodium Chloride 250 ML IVPB SCH (06:19)
[2019-05-26] MEDS: cefTRIAXone 1,000 MG in Water for inj. (sterile) 10 ML IVP SCH (08:00)
[2019-05-26] MEDS: Apixaban 5 MG TABLET GTUBE SCH ×2 (08:03→21:38)
[2019-05-26] MEDS: Budesonide/Formoterol 80/4.5 1 PUFF INH IH SCH (10:44)
--- NOTE | 2019-05-26 12:55 | Internal Med Progress Note ---
Hospitalist Progress Note - Encounter Date of Encounter: 05/26/19 Time of Encounter: 09:15 - Subjective Interval History: Seen at bedside. Still complaining of mild nausea. Denies fever, chills, rigors. Denies dysuria, hematuria. Denies chest pain, shortness of breath. Had been started on diet. No overnight events. - Exam Vitals: Temp Pulse Resp BP Pulse Ox 98.1 F 64 15 128/82 100 05/26/19 11:06 05/26/19 11:06 05/26/19 11:06 05/26/19 11:06 05/26/19 11:06 Exam: General: Alert and oriented, no physical distress, able to follow commands. HEENT: No thyromegaly, no lymphadenopathy, no discharge. Eyes: No discharge. Normal conjuctiva, no icterus Respiratory: Normal vesicular breathing, no added sounds, breathing equal in both sides. CVS: Normal heart sounds, no murmurs, regular rhthm, no edema Extremities: No peripheral edema, peripheral pulses intact. Lymph nodes: No lymphadenopathy Gastrointestinal: Soft, nontender abdomen, normal abdominal sounds. No distention noted. Genitourinary: No paravertebral tenderness. Skin: No rash, ulcers or wound. Neurological: Alert and oriented. No nystagmus appreciated - Assessment and Plan (1) UTI (urinary tract infection) Current Visit: Yes Status: Acute Assessment and Plan: Urine cultures were positive for Proteus mirabilis. The patient is currently on ceftriaxone. CT scan was obtained on 05/24/2019 which was negative for any stones,pyelonephritis. Patient is still complaining of nausea which is most likely because of this UTI. Continue The current management for now. (2) Acute kidney failure Current Visit: Yes Status: Acute Assessment and Plan: Sodium at the presentation was 1.21, improved to 1.05, baseline is around 0.9. Most likely was the cause of the low fluid intake. Hold off on the IV fluids. Appreciate oral intake. Continue to monitor the renal function. (3) Syncope Current Visit: Yes Status: Acute Assessment and Plan: Etiology is unclear. Was most likely because of the dehydration or sepsis. No arrhythmia noted. EKG was negative for any ischemic changes. No further episodes in the hospital. Continue to monitor. (4) Pneumonia Current Visit: Yes Status: Suspected Assessment and Plan: Chest x-ray was concerning for pneumonia. Patient is feeling fine at this point. Blood cultures pending. Continue azithromycin and ceftriaxone. Oxygen as needed. Was assessed by the speech because of the history of dysphagia. Barium swallow did not show any progression in the dysphagia. Currently on nectar thickened diet. Speech therapy on board. (5) DVT prophylaxis Current Visit: Yes Status: Acute Assessment and Plan: -On home dosing of Eliquis. (6) Dysphagia Current Visit: Yes Status: Acute Assessment and Plan: -On thickened nectar diet -Speech therapy on board (7) Vertigo Current Visit: Yes Status: Acute Assessment and Plan: -Patient complaining of the symptoms that are concerning for the vertigo Etiology unclear. Was started on meclizine with minimal relief. If Symptoms continue to remain, we will obtain the MRI of the head to rule out any new posterior circulation stroke. On Zofran for nausea. - Time Spent with Patient Total time spent is greater than 50% in coordination of care (as documented) at patient's floor/unit and/or counseling patient: Internal Medicine: Result - Labs CBC & Chem 7: 05/26/19 03:50 05/26/19 03:50 Labs: Short CBC 05/26/19 Range/Units 03:50 WBC 6.6 (4.3-11.1) K/mcL Hgb 9.8 L (11.5-15.4) g/dL Hct 31.0 L (35.3-44.9) % Plt Count 250 (140-400) K/mcL Neutrophils # 4.9 (1.6-8.9) K/mcL BMP 05/26/19 03:50 Sodium 139 Potassium 3.8 Chloride 107 Carbon Dioxide 24 BUN 10 Creatinine 1.05 Glucose 119 H Calcium 9.1 - ABG Interpretation ABG results: PT/INR, D-dimer PT 13.0 Seconds (9.4-12.1) H 05/24/19 18:27 Consult Discharge Plan - Plan (1) UTI (urinary tract infection) Qualifiers: Urinary tract infection type: acute cystitis Hematuria presence: without hematuria Qualified Code(s): N30.00 - Acute cystitis without hematuria (2) Acute kidney failure Qualifiers: Acute renal failure type: unspecified Qualified Code(s): N17.9 - Acute kidney failure, unspecified (3) Syncope Qualifiers: Syncope type: unspecified Qualified Code(s): R55 - Syncope and collapse (4) Pneumonia Qualifiers: Pneumonia type: due to unspecified organism Laterality: left Lung location: lower lobe of lung Qualified Code(s): J18.1 - Lobar pneumonia, unspecified organism (6) Dysphagia Qualifiers: Dysphagia type: oropharyngeal phase Qualified Code(s): R13.12 - Dysphagia, oropharyngeal phase
[2019-05-26] MEDS: Melatonin 3 MG TABLET GTUBE SCH (21:39)
[2019-05-27] MEDS: Azithromycin 500 MG in 0.9 % Sodium Chloride 250 ML IVPB SCH (04:43)
[2019-05-27 04:49] LABS: Basophils # 0.1 K/mcL (0.0-0.2); Basophils % 0.6 %; Eosinophils # 0.6 K/mcL (0.0-0.6); Eosinophils % 7.7 %; Hematocrit 30.4 % (35.3-44.9); Hemoglobin 9.5 g/dL (11.5-15.4); Immature Granulocytes % 0.2 % (0-4); Lymphocytes # 0.9 K/mcL (0.6-4.6); Lymphocytes % 11.5 %; Mean Corpuscular HGB Conc 31.3 g/dL (31.6-35.5); Mean Corpuscular Hemoglobin 30.8 pg (28.0-33.3); Mean Corpuscular Volume 98.7 fL (83.0-100.0); Mean Platelet Volume 9.4 fL (9.4-12.4); Monocytes # 0.6 K/mcL (0.0-1.3); Monocytes % 7.4 %; Neutrophils # 5.9 K/mcL (1.6-8.9); Platelet Count 276 K/mcL (140-400); Red Blood Count 3.08 M/mcL (3.82-4.97); Red Cell Distribution Width 14.6 % (11.5-14.5); Segmented Neutrophils % 72.6 %; White Blood Count 8.1 K/mcL (4.3-11.1)
[2019-05-27 05:10] LABS: Calcium 9.2 mg/dL (8.6-10.3); Potassium 3.9 mEq/L (3.5-5.1)
[2019-05-27] MEDS: Apixaban 5 MG TABLET GTUBE SCH (08:45)
[2019-05-27] MEDS: cefTRIAXone 1,000 MG in Water for inj. (sterile) 10 ML IVP SCH (08:46)
[2019-05-27] MEDS: Ringers Solution, Lactated 1,000 ML IVC SCH ×2 (09:10→22:57)
[2019-05-27] MEDS: Insulin LISPRO 300 UNITS/3 ML VIAL SQ SCH ×4 (09:14→21:54)
[2019-05-27] MEDS: Budesonide/Formoterol 80/4.5 1 PUFF INH IH SCH (10:38)
--- NOTE | 2019-05-27 13:17 | Internal Med Progress Note ---
Hospitalist Progress Note - Encounter Date of Encounter: 05/27/19 Time of Encounter: 09:25 - Subjective Interval History: Patient was seen at bedside. Still complaining of mild nausea and vomiting. Denies any dizziness. Denies fever, chills, rigors. No other acute overnight events. Denies any chest pain or shortness of breath. - Exam Vitals: Temp Pulse Resp BP Pulse Ox 98.2 F 70 18 129/70 99 05/27/19 10:33 05/27/19 10:33 05/27/19 10:38 05/27/19 10:33 05/27/19 10:38 Exam: General: Alert and oriented, no physical distress, able to follow commands. Respiratory: Normal vesicular breathing, no added sounds, breathing equal in both sides. CVS: Normal heart sounds, no murmurs, regular rhthm, no edema Extremities: No peripheral edema, peripheral pulses intact. Lymph nodes: No lymphadenopathy Gastrointestinal: Soft, nontender abdomen, normal abdominal sounds. No distention noted. Genitourinary: No paravertebral tenderness. Skin: No rash, ulcers or wound. Neurological: Alert and oriented. No nystagmus appreciated - Assessment and Plan (1) UTI (urinary tract infection) Current Visit: Yes Status: Acute Assessment and Plan: Urine cultures were positive for Proteus mirabilis. The patient is currently on ceftriaxone. CT scan was obtained on 05/24/2019 which was negative for any stones,pyelonephritis. Patient is still complaining of nausea which is most likely because of this UTI. Continue The current management for now. (2) Acute kidney failure Current Visit: Yes Status: Acute Assessment and Plan: Cr at the presentation was 1.21, improved to 1.05,worsended today again to 1.28, baseline is around 0.9. Most likely because of the low fluid intake as the pt baseline fluids intake is porr Restart on IV fluids Continue to monitor the renal function. (3) Syncope Current Visit: Yes Status: Acute Assessment and Plan: Etiology is unclear. Was most likely because of the dehydration or sepsis. No arrhythmia noted. -Possbility of a nw stroke cannot be ruled out. -recently had carotid dopplers whihc were negaitve -Cannot have MRI due to pacemaker EKG was negative for any ischemic changes. No further episodes in the hospital. Continue to monitor. (4) Pneumonia Current Visit: Yes Status: Suspected Assessment and Plan: Chest x-ray was concerning for pneumonia. Patient is feeling fine at this point. Blood cultures pending. Continue azithromycin and ceftriaxone. Oxygen as needed. Was assessed by the speech because of the history of dysphagia. Barium swallow did not show any progression in the dysphagia. Currently on nectar thickened diet. Speech therapy on board. (5) DVT prophylaxis Current Visit: Yes Status: Acute Assessment and Plan: -On home dosing of Eliquis. (6) Dysphagia Current Visit: Yes Status: Acute Assessment and Plan: -On thickened nectar diet -Speech therapy on board (7) Vertigo Current Visit: Yes Status: Acute Assessment and Plan: -Patient complaining of the symptoms that are concerning for the vertigo Etiology unclear. -Possbility of a nw stroke cannot be ruled out. -recently had carotid dopplers whihc were negaitve -Cannot have MRI due to pacemaker -Curently on plavix and eliquis and zetia which we will continue. Was started on meclizine with minimal relief. On Zofran for nausea. - Time Spent with Patient Total time spent is greater than 50% in coordination of care (as documented) at patient's floor/unit and/or counseling patient: Internal Medicine: Result - Labs CBC & Chem 7: 05/27/19 04:28 05/27/19 04:28 Labs: Short CBC 05/27/19 Range/Units 04:28 WBC 8.1 (4.3-11.1) K/mcL Hgb 9.5 L (11.5-15.4) g/dL Hct 30.4 L (35.3-44.9) % Plt Count 276 (140-400) K/mcL Neutrophils # 5.9 (1.6-8.9) K/mcL BMP 05/27/19 04:28 Sodium 140 Potassium 3.9 Chloride 108 H Carbon Dioxide 24 BUN 15 Creatinine 1.28 H Glucose 118 H Calcium 9.2 - ABG Interpretation ABG results: PT/INR, D-dimer PT 13.0 Seconds (9.4-12.1) H 05/24/19 18:27 Consult Discharge Plan - Plan Referrals: Edgar Nguyen Jr, MD [Primary Care Provider] - ____ (1) UTI (urinary tract infection) Qualifiers: Urinary tract infection type: acute cystitis Hematuria presence: without hematuria Qualified Code(s): N30.00 - Acute cystitis without hematuria (2) Acute kidney failure Qualifiers: Acute renal failure type: unspecified Qualified Code(s): N17.9 - Acute kidney failure, unspecified (3) Syncope Qualifiers: Syncope type: unspecified Qualified Code(s): R55 - Syncope and collapse (4) Pneumonia Qualifiers: Pneumonia type: due to unspecified organism Laterality: left Lung location: lower lobe of lung Qualified Code(s): J18.1 - Lobar pneumonia, unspecified organism (6) Dysphagia Qualifiers: Dysphagia type: oropharyngeal phase Qualified Code(s): R13.12 - Dysphagia, oropharyngeal phase
[2019-05-27] MEDS: Ondansetron 4 MG/2 ML VIAL IVP PRN (18:36)
[2019-05-27] MEDS: Apixaban 5 MG TABLET PO SCH (20:05)
[2019-05-27] MEDS: *HR* Promethazine 25 MG/ML VIAL IVP PRN (20:05)
[2019-05-27] MEDS: Melatonin 3 MG TABLET PO SCH (20:06)
[2019-05-28 04:32] LABS: Basophils # 0.1 K/mcL (0.0-0.2); Basophils % 0.9 %; Eosinophils # 0.6 K/mcL (0.0-0.6); Eosinophils % 8.2 %; Hematocrit 29.3 % (35.3-44.9); Hemoglobin 9.4 g/dL (11.5-15.4); Immature Granulocytes % 0.4 % (0-4); Lymphocytes # 0.8 K/mcL (0.6-4.6); Lymphocytes % 12.1 %; Mean Corpuscular HGB Conc 32.1 g/dL (31.6-35.5); Mean Corpuscular Volume 96.7 fL (83.0-100.0); Mean Platelet Volume 9.5 fL (9.4-12.4); Monocytes # 0.6 K/mcL (0.0-1.3); Monocytes % 8.2 %; Neutrophils # 4.8 K/mcL (1.6-8.9); Platelet Count 247 K/mcL (140-400); Red Blood Count 3.03 M/mcL (3.82-4.97); Red Cell Distribution Width 14.6 % (11.5-14.5); Segmented Neutrophils % 70.2 %; White Blood Count 6.9 K/mcL (4.3-11.1)
[2019-05-28 04:52] LABS: BUN/Creatinine Ratio 13 (6-26); Blood Urea Nitrogen 12 mg/dL (8-23); Calcium 8.9 mg/dL (8.6-10.3); Carbon Dioxide 25 mEq/L (23-29); Chloride 108 mEq/L (98-107); Glucose 104 mg/dL (70-105); Osmolality,Calculated 290 (280-300); Potassium 3.8 mEq/L (3.5-5.1); Sodium 140 mEq/L (136-145); eGFR For African Americans > 60 (> 60); eGFR For Non-African Americans 58 (> 60)
[2019-05-28] MEDS: Insulin LISPRO 300 UNITS/3 ML VIAL SQ SCH ×4 (07:24→21:37)
[2019-05-28] MEDS: cefTRIAXone 1,000 MG in Water for inj. (sterile) 10 ML IVP SCH (07:27)
[2019-05-28] MEDS: Apixaban 5 MG TABLET PO SCH ×2 (07:27→21:33)
[2019-05-28] MEDS: Budesonide/Formoterol 80/4.5 1 PUFF INH IH SCH (07:56)
[2019-05-28] MEDS ORDERED: Azithromycin 250 MG TABLET PO SCH (09:00)
--- NOTE | 2019-05-28 11:12 | Neurology - Consult Note ---
Date of Encounter: 05/28/19 Time of Encounter: 11:37 History of Present Illness Chief complaint: Nausea, syncope HPI: Ms. Florez is a 79 year old female past medical history of CHF, COPD, CAD, CVA, DVT, diabetes, hyperlipidemia, bradycardia, kidney disease who presents to emergency department from [facility] due to a syncopal episode as well as intractable nausea. Neurology was consult that due to concerns for CVA as well as intractable nausea. Of note, patient and who is present at bedside state that she was admitted to [facility] in March 2019 for a stroke which did require what sounds to be catheter guided thrombolytics. Patient does have residual deficits on the left side of her body following the stroke. Patient state that she has been doing well with her rehabilitation and she has been slowly gaining back more for function on the left side. They had noticed however that she has been not progressing as fast in the past couple days. He has been is also noticed some increased difficulty understanding his and feels that she has slurring and garbling her speech more. She denies any new numbness, tingling, focal weakness. She does admit to this nausea that is consistently present with minimal vomiting. She has also noticed some loose stools but denies any urinary symptoms, chest pains, palpitations, fevers, chills, recent illness. She does have some increased work of breathing as well as cough. She is also had some difficulty swallowing and has been working with speech therapy. The syncopal event they report happened at the care home when she was using her upper extremities to try and get out of bed for a sustained time. She denies any further syncopal events and denies any lightheaded/dizziness. In the emergency room, vital signs were unremarkable. Laboratory results show no evidence of leukocytosis, hemoglobin of 9.4. Urinalysis did show evidence of infection and urine culture is currently growing Proteus. Chest x-ray also shows possible pneumonia and she has been treated with Rocephin and azithromycin she states she has had previously. Head CT was performed on 05/24/19 which sh owed no evidence of acute process. Previous head CT on 05/11/19 did show evidence of small focal area of recent infarct involving the left aspect of the brainstem/yonas. At time of my interview, patient states that she is nauseous and short of breath still but otherwise has no new concerns. She and her are both concerned that a new ischemic event would delay her recovery and that [facility] may be able to use more advanced diagnostic technology. Past medical history: As above Past surgical history: Appendectomy, cholecystectomy, colectomy, CABG, heart valve replacement, hysterectomy, orthopedic, pacemaker Social history: Ever smoker, denies alcohol or drug use Past Med Surg Social Fam HX - Past Medical History Medical history: aortic aneurysm, arthritis, CHF, COPD, coronary artery disease, CVA, DVT, diabetes, hyperlipidemia, myocardial infarction, renal disease, other Additional medical history: bradycardia, Psychiatric history: anxiety, depression - Past Surgical History Surgical History: appendectomy, cholecystectomy, colectomy, coronary bypass (CABG), heart valve replacement, hysterectomy, knee replacement, other, pacemaker Additional surgical history: CABG 2007, 2008 heart valve, 2009 pacemaker, 9 inches of bowel removed, mitral valve replacement, 2 CARDIAC STENTS (JANUARY 2019) - Social History Smoking Status: Never smoker Smokeless Tobacco Status: No Alcohol use: none Drug use: none - Family History Father Family Member Ethnicity: Non- Living Status: Hx Family Cardiac Disorders: No Hx Family Respiratory Disorders: No Hx Family Cancer: Yes (lung ca) Hx Family GI Disorders: No Hx Family Endocrine Disorder: No Hx Family Neuromuscular Disorders: No Hx Family Neurologic Disorders: No Hx Family HEENT Disorders: No Hx Family Autoimmune Disorders: No Mother Living Status: Hx Family Cardiac Disorders: Yes (CHF) Hx Family Respiratory Disorders: Yes (COPD) Hx Family Cancer: Yes (COLON) Hx Family GI Disorders: No Hx Family Endocrine Disorder: No Hx Family Neuromuscular Disorders: No Hx Family Neurologic Disorders: No Hx Family HEENT Disorders: No Hx Family Autoimmune Disorders: No Medications and Allergies Albuterol Sulfate [Ventolin Hfa] 1 puff IH Q6H PRN 05/11/19 [History] Apixaban [Eliquis] 5 mg GTUBE Q12H 05/11/19 [History] Bisacodyl [Dulcolax] 10 mg RC DAILY PRN 05/11/19 [History] Clopidogrel Bisulfate [Plavix] 75 mg GTUBE DAILY 05/11/19 [History] Ezetimibe [Zetia] 10 mg GTUBE DAILY 05/11/19 [History] Fluticasone/Vilanterol [Breo Ellipta 100-25 Mcg INH] 1 puff IH DAILY 05/11/19 [History] Ibuprofen [Ibu] 400 mg PO Q8H PRN 05/11/19 [History] Insulin ASPART [NovoLOG] 0 unit SQ QPM 05/11/19 [History] Ipratropium/Albuterol Neb [Duoneb] 3 ml IH Q6H PRN 05/11/19 [History] Loperamide HCl [Imodium A-D] 2 mg PO PRN PRN 05/11/19 [History] Melatonin 3 mg GTUBE HS 05/11/19 [History] Modafinil [Provigil] 100 mg GTUBE BID 05/11/19 [History] Ondansetron HCl [Zofran] 4 mg GTUBE Q6H PRN 05/11/19 [History] Sertraline [Zoloft] 50 mg GTUBE DAILY 05/11/19 [History] Pantoprazole Sodium [Protonix] 40 mg PO DAILY 05/24/19 [History] Allergy/AdvReac Type Severity Reaction Status Date / Time codeine AdvReac See Verified 05/25/19 08:00 Comments morphine AdvReac Nausea Verified 05/25/19 08:00 promethazine [From Phenergan] AdvReac Confusion Verified 05/25/19 08:00 propoxyphene AdvReac Nausea Verified 05/25/19 08:00 [From Darvocet-N] All Systems: The remainder of the systems were reviewed and are negative Physical Examination - Vital Signs Vital Signs: Initial Vital Signs Temp Pulse Resp BP Pulse Ox 98.5 F 71 20 136/72 98 05/24/19 17:37 05/24/19 17:37 05/24/19 17:37 05/24/19 17:37 05/24/19 17:37 Results - Laboratory Findings CBC and BMP: 05/28/19 04:05 05/28/19 04:05 Abnormal lab findings: Abnormal lab results RBC 3.03 M/mcL (3.82-4.97) L 05/28/19 04:05 Hgb 9.4 g/dL (11.5-15.4) L 05/28/19 04:05 Hct 29.3 % (35.3-44.9) L 05/28/19 04:05 MCHC 31.3 g/dL (31.6-35.5) L 05/27/19 04:28 RDW 14.6 % (11.5-14.5) H 05/28/19 04:05 PT 13.0 Seconds (9.4-12.1) H 05/24/19 18:27 Chloride 108 mEq/L (98-107) H 05/28/19 04:05 Creatinine 1.28 mg/dL (0.60-1.20) H 05/27/19 04:28 Est GFR ( Amer) 49 (> 60) L 05/27/19 04:28 Est GFR (Non-Af Amer) 58 (> 60) L 05/28/19 04:05 Glucose 118 mg/dL (70-105) H 05/27/19 04:28 POC Glucose 110 mg/dL (70-99) H 05/28/19 06:54 Hemoglobin A1c 6.3 % (-5.6) H 05/25/19 04:14 AST 12 Units/L (13-39) L 05/25/19 04:14 Serum Total Protein 6.0 g/dL (6.4-8.9) L 05/25/19 04:14 Globulin 2.3 g/dL (2.4-3.5) L 05/24/19 18:27 Urine Clarity Cloudy (Clear) A 05/24/19 19:00 Urine Protein 30 mg/dL (Neg-Trace) H 05/24/19 19:00 Urine Blood Moderate (Negative) H 05/24/19 19:00 Urine Nitrite Positive (Negative) A 05/24/19 19:00 Ur Leukocyte Esterase Large (Negative) H 05/24/19 19:00 Urine Microscopic RBC 5-15 per hpf (0-3) H 05/24/19 19:00 Urine Microscopic WBC TNTC per hpf (0-3) H 05/24/19 19:00 Ur Squamous Epith Cells Many per lpf (None-Few) H 05/24/19 19:00 Urine Bacteria Many per hpf (None-Few) H 05/24/19 19:00 Hyaline Casts Moderate per lpf (None-Few) H 05/24/19 19:00 Ur Culture Indicated? YES (NO) A 05/24/19 19:00 Consult Discharge Plan - Plan Referrals: Edgar Nguyen Jr, MD [Primary Care Provider] -
--- NOTE | 2019-05-28 13:54 | Internal Med Progress Note ---
Hospitalist Progress Note - Encounter Date of Encounter: 05/28/19 Time of Encounter: 09:00 - Subjective Interval History: Patient seen at bedside. Complaining of severe diarrhea. And multiple loose stools overnight. Still having a nausea. Denies fever, chills, rigors. at bedside. Discussed with the that in the case of a new stroke, cannot do MRI because the patient a pacemaker. mentions that it could be worthwhile to transferred for the patient to [facility]. - Exam Vitals: Temp Pulse Resp BP Pulse Ox 97.6 F 71 18 128/74 99 05/28/19 11:49 05/28/19 11:49 05/28/19 11:49 05/28/19 11:49 05/28/19 11:49 Exam: General: Alert and oriented, no physical distress, able to follow commands. Respiratory: Normal vesicular breathing, no added sounds, breathing equal in both sides. CVS: Normal heart sounds, no murmurs, regular rhthm, no edema Extremities: No peripheral edema, peripheral pulses intact. Lymph nodes: No lymphadenopathy Gastrointestinal: Soft, nontender abdomen, normal abdominal sounds. No distention noted. Genitourinary: No paravertebral tenderness. Skin: No rash, ulcers or wound. Neurological: Alert and oriented. No nystagmus appreciated - Assessment and Plan (1) Clostridium difficile colitis Current Visit: Yes Status: Acute Assessment and Plan: Because of the severe diarrhea, C. difficile was ordered. Positive. Start the patient on oral vancomycin. Stopped medications for UTI, ceftriaxone. ID consult for recommendations regarding the UTI antibiotics. (2) UTI (urinary tract infection) Current Visit: Yes Status: Acute Assessment and Plan: Urine cultures were positive for Proteus mirabilis. The patient is currently on ceftriaxone. CT scan was obtained on 05/24/2019 which was negative for any stones,pyelonephritis. Hold ceftriaxone for now. Consult ID, pt may need fosfomycin. (3) Acute kidney failure Current Visit: Yes Status: Acute Assessment and Plan: Cr at the presentation was 1.21, improved to 0.9 today. This is her baseline. Continue to monitor the renal functions. Stop IV fluids.. (4) Syncope Current Visit: Yes Status: Acute Assessment and Plan: Etiology is unclear. Was most likely because of the dehydration or sepsis. No arrhythmia noted. -Possbility of a nw stroke cannot be ruled out. -recently had carotid dopplers whihc were negaitve -Cannot have MRI due to pacemaker EKG was negative for any ischemic changes. No further episodes in the hospital. Neurology consult for any reccommodations.. (5) Pneumonia Current Visit: Yes Status: Suspected Assessment and Plan: Chest x-ray was concerning for pneumonia. Patient is feeling fine at this point. Blood cultures pending. Got 3 days of azihromcyin, will d/c now. Ceftriaxine on hold for now. ID consult Oxygen as needed. Was assessed by the speech because of the history of dysphagia. Barium swallow did not show any progression in the dysphagia. Currently on nectar thickened diet. Speech therapy on board. (6) DVT prophylaxis Current Visit: Yes Status: Acute Assessment and Plan: -On home dosing of Eliquis. (7) Dysphagia Current Visit: Yes Status: Acute Assessment and Plan: -On thickened nectar diet -Speech therapy on board (8) Vertigo Current Visit: Yes Status: Acute Assessment and Plan: -Patient complaining of the symptoms that are concerning for the vertigo Etiology unclear. -Possbility of a nw stroke cannot be ruled out. -recently had carotid dopplers whihc were negaitve -Cannot have MRI due to pacemaker -Curently on plavix and eliquis and zetia which we will continue. Was started on meclizine with minimal relief. On Zofran for nausea. (9) Nausea Current Visit: No Status: Acute Assessment and Plan: Could be because of C. difficile colitis. Continue antibiotics. - Time Spent with Patient Total time spent is greater than 50% in coordination of care (as documented) at patient's floor/unit and/or counseling patient: Internal Medicine: Result - Labs CBC & Chem 7: 05/28/19 04:05 05/28/19 04:05 Labs: Short CBC 05/28/19 Range/Units 04:05 WBC 6.9 (4.3-11.1) K/mcL Hgb 9.4 L (11.5-15.4) g/dL Hct 29.3 L (35.3-44.9) % Plt Count 247 (140-400) K/mcL Neutrophils # 4.8 (1.6-8.9) K/mcL BMP 05/28/19 04:05 Sodium 140 Potassium 3.8 Chloride 108 H Carbon Dioxide 25 BUN 12 Creatinine 0.93 Glucose 104 Calcium 8.9 - ABG Interpretation ABG results: PT/INR, D-dimer PT 13.0 Seconds (9.4-12.1) H 05/24/19 18:27 Consult Discharge Plan - Plan Referrals: Edgar Nguyen Jr, MD [Primary Care Provider] - (2) UTI (urinary tract infection) Qualifiers: Urinary tract infection type: acute cystitis Hematuria presence: without hematuria Qualified Code(s): N30.00 - Acute cystitis without hematuria (3) Acute kidney failure Qualifiers: Acute renal failure type: unspecified Qualified Code(s): N17.9 - Acute kidney failure, unspecified (4) Syncope Qualifiers: Syncope type: unspecified Qualified Code(s): R55 - Syncope and collapse (5) Pneumonia Qualifiers: Pneumonia type: due to unspecified organism Laterality: left Lung location: lower lobe of lung Qualified Code(s): J18.1 - Lobar pneumonia, unspecified organism (7) Dysphagia Qualifiers: Dysphagia type: oropharyngeal phase Qualified Code(s): R13.12 - Dysphagia, oropharyngeal phase
[2019-05-28] MEDS: Vancomycin Oral Soln 125 MG/2.5 ML UDC PO SCH ×3 (13:58→21:34)
--- NOTE | 2019-05-28 15:33 | Infectious Disease Consult ---
Infectious Disease-Consult - Encounter Date/Time Date of Encounter: 05/28/19 Time of Encounter: 15:25 - Data of Consult Patient: new to practice Reason for consult: "C. difficile positive with UTI. Needs recommendations for the UTI" Consult date: 05/28/19 Requesting Physician: Nael Armas Primary Care Provider: Edgar Nguyen Jr, MD - HPI HPI: Patient is an 79-year-old woman who presented [facility] [facility] 05/24/2000 with nausea vomiting weakness and syncope. We are consult of 05/28/2019 for C. difficile colitis and urinary tract infection. History of present illness patient is an 79-year-old woman with past medical history mentioned below including a past medical history of CVA, AR, CHF, COPD, chronic kidney disease, CAD status post CABG, hyperlipidemia, and remote history of heart valve replacement and pacemaker insertion was recenlty seen by us eariler this month for confustion, diarrhea and a recent UTI on 05/11 that was positive for MDRO K pneumoniae and proteus mirabilis was treated with Ertapenem. patient was also having diarrhea and a C Diff was check on 05/12 and it was negative presented to [facility] emergency department on 05/24/2019 complaining of protracted nausea vomiting weakness and syncope form extended care facility. Most of the info was taken from who is at bedside. Apparently he tells me that she was doing fine that day and went to her room sat on her bed and fell back. He wasn't there but that's what nursing told him Since admission, patient has been afebrile, no tachycardia and tachypnea. Presenting labs revealed a WBC of 7.1 with normal differential. BUN 15 creatinine 1.21. Patient had a urinalysis on admission which was positive for nitrites, large leukocyte esterase, WBCs too numerous to count the urine also had many squamous epithelial cells. Blood cultures were obtained 05/24/2019 2/2 sets no growth to date. Urine culture grew Proteus mirabilis R: Ciprofloxacin, gentamicin, levofloxacin, nitrofurantoin, Bactrim, tobramycin patient also had a C. difficile PCR which came back positive 05/28/2019. CT abdomen and pelvis with no contrast revealed no acute abnormalities small right pleural effusion and bibasilar atelectasis. A chest x-ray was read as persistent mild CHF with bilateral perihilar edema. During the hospital stay patient also has some slurred speech and neurology was consulted. Patient was started on Rocephin/azithromycin and today oral vancomycin was added. When i saw that patient she denied any cough, shortness of breath, pleutitic chest pain or sputum production. Dairrhea has improved. She has no urinary symptoms but she does have an indwelling massey - ROS Review of Systems: 10 point ROS done, negative other for what's mentioned in the HPI - Results CBC & Chem 7: 05/28/19 04:05 05/28/19 04:05 - Exam Vitals: Temp Pulse Resp BP Pulse Ox 98.6 F 74 20 153/68 99 05/28/19 15:16 05/28/19 15:16 05/28/19 15:16 05/28/19 15:16 05/28/19 15:16 Exam: GENERAL: Laying in bed, appears comfortable. HEAD: Normocephalic atraumatic EYES: PERRLA, EOMI, no conjunctival hemorrhage, sclera anicteric ENT: Mucous membranes dry, no oral thrush. She has some facial droop but i think that's chronic NECK: Supple. No meningeal signs. No masses LUNGS: Chest expanding symmetrically. Lungs sounds audible both lung jarquin. No wheezing, no rhonchi CV: RRR, S1S2, ABDOMEN: Soft, nontender, nondistended. Bowel sounds audible EXTREMITY: Adequate perfusion. No joint effusion. SKIN: Normal color. No rash. NEURO: Awake alert oriented 3. speech mumbled (chronic) PSYCH: Calm and appropriate. No agitation. Albuterol Sulfate [Ventolin Hfa] 1 puff IH Q6H PRN 05/11/19 [History] Apixaban [Eliquis] 5 mg GTUBE Q12H 05/11/19 [History] Bisacodyl [Dulcolax] 10 mg RC DAILY PRN 05/11/19 [History] Clopidogrel Bisulfate [Plavix] 75 mg GTUBE DAILY 05/11/19 [History] Ezetimibe [Zetia] 10 mg GTUBE DAILY 05/11/19 [History] Fluticasone/Vilanterol [Breo Ellipta 100-25 Mcg INH] 1 puff IH DAILY 05/11/19 [History] Ibuprofen [Ibu] 400 mg PO Q8H PRN 05/11/19 [History] Insulin ASPART [NovoLOG] 0 unit SQ QPM 05/11/19 [History] Ipratropium/Albuterol Neb [Duoneb] 3 ml IH Q6H PRN 05/11/19 [History] Loperamide HCl [Imodium A-D] 2 mg PO PRN PRN 05/11/19 [History] Melatonin 3 mg GTUBE HS 05/11/19 [History] Modafinil [Provigil] 100 mg GTUBE BID 05/11/19 [History] Ondansetron HCl [Zofran] 4 mg GTUBE Q6H PRN 05/11/19 [History] Sertraline [Zoloft] 50 mg GTUBE DAILY 05/11/19 [History] Pantoprazole Sodium [Protonix] 40 mg PO DAILY 05/24/19 [History] Allergy/AdvReac Type Severity Reaction Status Date / Time codeine AdvReac See Verified 05/25/19 08:00 Comments morphine AdvReac Nausea Verified 05/25/19 08:00 promethazine [From Phenergan] AdvReac Confusion Verified 05/25/19 08:00 propoxyphene AdvReac Nausea Verified 05/25/19 08:00 [From Darvocet-N] - Assessment and Plan (1) UTI (urinary tract infection) Current Visit: No Status: Acute causative organism Proteus mirabilis R: levaquin, aminoglycosides, bactrim, nitrofurantion currently on rocephin complicated by indwelling massey Qualifiers: Urinary tract infection type: site unspecified Hematuria presence: without hematuria Qualified Code(s): N39.0 - Urinary tract infection, site not specified SNOMED Code(s): 44437959 (2) Pneumonia Current Visit: No Status: Suspected clinically no signs of pneumonia CXR no defnitive I would repeat imaging and if no obvious pneumnia I would deescalate antibiotics Qualifiers: Pneumonia type: due to methicillin-resistant Staphylococcus aureus (MRSA) Laterality: bilateral Lung location: lower lobe of lung Qualified Code(s): J15.212 - Pneumonia due to Methicillin resistant Staphylococcus aureus SNOMED Code(s): 328468611 (3) Clostridium difficile colitis Current Visit: Yes Status: Acute 05/12 C diff pcr negative repeat C diff pcr 05/28 positive SNOMED Code(s): 138668914 (4) Type 2 diabetes mellitus Current Visit: No Status: Chronic Qualifiers: Diabetes mellitus medical terminologist insulin use: with medical terminologist use Diabetes mellitus complication status: with kidney complications Diabetes mellitus complication detail: with chronic kidney disease Chronic kidney disease stage: stage 3 (moderate) Qualified Code(s): E11.22 - Type 2 diabetes mellitus with diabetic chronic kidney disease; N18.3 - Chronic kidney disease, stage 3 (mo derate); Z79.4 - [facility] (current) use of insulin SNOMED Code(s): 24933927 - Recommendations Recommendations: repeat CXR in am, if negative d/c azithromycin continue rocephin for now, consider switching to oral keflex on d/c to treat for 7 days continue oral vancomycin 125 q 6 for 10 days Past Med Surg Social Fam HX - Past Medical History Medical history: aortic aneurysm, arthritis, CHF, COPD, coronary artery disease, CVA, DVT, diabetes, hyperlipidemia, myocardial infarction, renal disease, other Additional medical history: bradycardia, Psychiatric history: anxiety, depression - Past Surgical History Surgical History: appendectomy, cholecystectomy, colectomy, coronary bypass (CABG), heart valve replacement, hysterectomy, knee replacement, other, pacemaker Additional surgical history: CABG 2007, 2009 heart valve, 2009 pacemaker, 9 inc hes of bowel removed, mitral valve replacement, 2 CARDIAC STENTS (JANUARY 2019) - Social History Smoking Status: Never smoker Smokeless Tobacco Status: No Alcohol use: none Drug use: none - Family History Father Family Member Ethnicity: Non- Living Status: Hx Family Cardiac Disorders: No Hx Family Respiratory Disorders: No Hx Family Cancer: Yes (lung ca) Hx Family GI Disorders: No Hx Family Endocrine Disorder: No Hx Family Neuromuscular Disorders: No Hx Family Neurologic Disorders: No Hx Family HEENT Disorders: No Hx Family Autoimmune Disorders: No Mother Living Status: Hx Family Cardiac Disorders: Yes (CHF) Hx Family Respiratory Disorders: Yes (COPD) Hx Family Cancer: Yes (COLON) Hx Family GI Disorders: No Hx Family Endocrine Disorder: No Hx Family Neuromuscular Disorders: No Hx Family Neurologic Disorders: No Hx Family HEENT Disorders: No Hx Family Autoimmune Disorders: No Consult Discharge Plan - Plan Referrals: Edgar Nguyen Jr, MD [Primary Care Provider] -
[2019-05-28] MEDS: Melatonin 3 MG TABLET PO SCH (21:33)
[2019-05-29 04:22] LABS: Basophils # 0.1 K/mcL (0.0-0.2); Basophils % 0.7 %; Eosinophils # 0.5 K/mcL (0.0-0.6); Eosinophils % 7.6 %; Hematocrit 29.4 % (35.3-44.9); Hemoglobin 9.2 g/dL (11.5-15.4); Immature Granulocytes % 0.3 % (0-4); Lymphocytes # 0.8 K/mcL (0.6-4.6); Lymphocytes % 11.7 %; Mean Corpuscular HGB Conc 31.3 g/dL (31.6-35.5); Mean Corpuscular Hemoglobin 30.5 pg (28.0-33.3); Mean Corpuscular Volume 97.4 fL (83.0-100.0); Mean Platelet Volume 9.7 fL (9.4-12.4); Monocytes # 0.6 K/mcL (0.0-1.3); Monocytes % 9.1 %; Neutrophils # 4.8 K/mcL (1.6-8.9); Platelet Count 256 K/mcL (140-400); Red Blood Count 3.02 M/mcL (3.82-4.97); Red Cell Distribution Width 14.5 % (11.5-14.5); Segmented Neutrophils % 70.6 %; White Blood Count 6.7 K/mcL (4.3-11.1)
[2019-05-29 04:41] LABS: BUN/Creatinine Ratio 17 (6-26); Blood Urea Nitrogen 16 mg/dL (8-23); Carbon Dioxide 27 mEq/L (23-29); Chloride 108 mEq/L (98-107); Glucose 116 mg/dL (70-105); Osmolality,Calculated 294 (280-300); Potassium 3.8 mEq/L (3.5-5.1); Sodium 141 mEq/L (136-145); eGFR For African Americans > 60 (> 60); eGFR For Non-African Americans 58 (> 60)
[2019-05-29] MEDS: Budesonide/Formoterol 80/4.5 1 PUFF INH IH SCH (07:53)
--- NOTE | 2019-05-29 08:31 | Neurology Progress Note ---
Date of Encounter: 05/29/19 Time of Encounter: 09:54 Assessment and Plan (1) Recent cerebrovascular accident (CVA) Current Visit: Yes Status: Chronic - Recent CVA at [facility] with thrombolytic appearing - Previously reported improvement of symptoms since the event - Residual deficits on left side which are improving. - Currently on plavix, eliquis - CT of the head on presentation (05/24) and repeat on 05/28 show no acute abnormality - unable to have MRI due to pacemaker Plan - At this time, low suspicion for acute infarct causing patient's symptoms - More likely, underlying metabolic and infectious process may be causing symptoms including speech changes secondary to difficulty breathing and c.diff causing nausea - Recommend continuing plavix and eliquis, treating underlying medical problems per primary team/ ID - CT results were explained to the patient, she acknowledges understanding. - Neurology will sign off at this time. Please reconsult if needed. Thank you for allowing us to participate in Ms. Florez's care. (2) Slurred speech Current Visit: Yes Status: Acute - as above - No acute neurologic process identified - Recommend improving breathing and assessing at that time. Subjective Principal diagnosis: C. diff colitis Interval history: patient was seen and examined at bedside this morning. She reports no improvement of her speech but is having no weakness, numbness, tingling. She is in no pain at this time. Objective - Constitutional Vitals: Temp Pulse Resp BP Pulse Ox 98.4 F 71 16 130/76 97 05/29/19 07:19 05/29/19 07:19 05/29/19 07:56 05/29/19 07:19 05/29/19 07:56 General appearance: Present: cooperative, A&O X 3, pleasant, no acute distress, obese - Neurological Exam Sensorimotor examination: Present: intact Motor Examination: Present: grossly full strength in all extremities Motor examination - right side: 5/5: deltoids, biceps, triceps, inspector experimental assembly, hip flexors, tibialis Anterior, toe extension (EHL), plantarflexion Motor examination - left side: 4/5: deltoids, biceps, triceps, hip flexors, tibialis Anterior, toe extension (EHL), plantarflexion, 5/5: inspector experimental assembly Sensation intact: Present: intact Reflexes: Biceps: 2+, Patella: 2+ Mental Status Examination: Present: awake, alert, oriented to person, oriented to place, oriented to time, follows commands appropriately, answers questions appropriately, no agnosia, no aphasia, no aproxia Cranial nerve examination: Present: PERRL, EOMI, sensory to face intact, no facial asymmetry is present, flexes SCM and trapezius muscles symmetrically with full power, tongue protrudes midline. Absent: no dysarthria (mild slurring of speech) Cerebellar examination: Present: no dysmetria Results - Laboratory Findings CBC and BMP: 05/29/19 03:35 05/29/19 03:35 Abnormal lab findings: Abnormal lab results RBC 3.02 M/mcL (3.82-4.97) L 05/29/19 03:35 Hgb 9.2 g/dL (11.5-15.4) L 05/29/19 03:35 Hct 29.4 % (35.3-44.9) L 05/29/19 03:35 MCHC 31.3 g/dL (31.6-35.5) L 05/29/19 03:35 RDW 14.6 % (11.5-14.5) H 05/28/19 04:05 PT 13.0 Seconds (9.4-12.1) H 05/24/19 18:27 Chloride 108 mEq/L (98-107) H 05/29/19 03:35 Creatinine 1.28 mg/dL (0.60-1.20) H 05/27/19 04:28 Est GFR ( Amer) 49 (> 60) L 05/27/19 04:28 Est GFR (Non-Af Amer) 58 (> 60) L 05/29/19 03:35 Glucose 116 mg/dL (70-105) H 05/29/19 03:35 POC Glucose 157 mg/dL (70-99) H 05/28/19 11:54 Hemoglobin A1c 6.3 % (-5.6) H 05/25/19 04:14 AST 12 Units/L (13-39) L 05/25/19 04:14 Serum Total Protein 6.0 g/dL (6.4-8.9) L 05/25/19 04:14 Globulin 2.3 g/dL (2.4-3.5) L 05/24/19 18:27 Urine Clarity Cloudy (Clear) A 05/24/19 19:00 Urine Protein 30 mg/dL (Neg-Trace) H 05/24/19 19:00 Urine Blood Moderate (Negative) H 05/24/19 19:00 Urine Nitrite Positive (Negative) A 05/24/19 19:00 Ur Leukocyte Esterase Large (Negative) H 05/24/19 19:00 Urine Microscopic RBC 5-15 per hpf (0-3) H 05/24/19 19:00 Urine Microscopic WBC TNTC per hpf (0-3) H 05/24/19 19:00 Ur Squamous Epith Cells Many per lpf (None-Few) H 05/24/19 19:00 Urine Bacteria Many per hpf (None-Few) H 05/24/19 19:00 Hyaline Casts Moderate per lpf (None-Few) H 05/24/19 19:00 Ur Culture Indicated? YES (NO) A 05/24/19 19:00 Stl C. diff Tox B Gene Positive (Negative) A 05/28/19 11:50 Consult Discharge Plan - Plan Referrals: Edgar Nguyen Jr, MD [Primary Care Provider] -
[2019-05-29] MEDS ORDERED: cefTRIAXone 1,000 MG in 0.9 % Sodium Chloride Mini Bag 100 ML IVPB ONE (08:38)
--- NOTE | 2019-05-29 11:00 | Internal Med Progress Note ---
Hospitalist Progress Note - Encounter Date of Encounter: 05/29/19 Time of Encounter: 09:00 - Subjective Interval History: Patient was seen at bedside. Was diagnosed with C. difficile yesterday, had 1 episode of loose stool overnight. Mentions improvement in the nausea and vomiting. Mentioned improvement in the dizziness but still feeling dizzy. It is getting a bedfast, looking much better than yesterday. at bedside, questions were answered. Also, the CT scan yesterday which did not show any new abnormalities. - Exam Vitals: Temp Pulse Resp BP Pulse Ox 98.4 F 71 16 130/76 97 05/29/19 07:19 05/29/19 07:19 05/29/19 07:56 05/29/19 07:19 05/29/19 07:56 Exam: General: Alert and oriented, no physical distress, able to follow commands. Respiratory: Normal vesicular breathing, no added sounds, breathing equal in both sides. CVS: Normal heart sounds, no murmurs, regular rhthm, no edema Extremities: No peripheral edema, peripheral pulses intact. Lymph nodes: No lymphadenopathy Gastrointestinal: Soft, nontender abdomen, normal abdominal sounds. No distention noted. Genitourinary: No paravertebral tenderness. Skin: No rash, ulcers or wound. Neurological: Alert and oriented. No nystagmus appreciated - Assessment and Plan (1) Clostridium difficile colitis Current Visit: Yes Status: Acute Assessment and Plan: C. difficile positive Continue the patient on oral vancomycin for total of 10 days ID consult was placed yesterday, appreciate recommendations. (2) UTI (urinary tract infection) Current Visit: Yes Status: Acute Assessment and Plan: Urine cultures were positive for Proteus mirabilis. The patient is currently on ceftriaxone. CT scan was obtained on 05/24/2019 which was negative for any stones,p yelonephritis. As per ID recommendations, continue ceftriaxone for total of 7 days.. (3) Acute kidney failure Current Visit: Yes Status: Acute Assessment and Plan: Cr at the presentation was 1.21, improved to 0.9 today. This is her baseline. Continue to monitor the renal functions. Appreciate oral intake. (4) Syncope Current Visit: Yes Status: Acute Assessment and Plan: Etiology is unclear. Was most likely because of the dehydration or sepsis. No arrhythmia noted. -Possbility of a nw stroke cannot be ruled out. -recently had carotid dopplers whihc were negaitve -Cannot have MRI due to pacemaker EKG was negative for any ischemic changes. No further episodes in the hospital. Neurology consult was placed. Patient got CT scan yesterday. Did not show any new abnormalities. No further intervention at this point. (5) Pneumonia Current Visit: Yes Status: Suspected Assessment and Plan: Chest x-ray was concerning for pneumonia. Patient is feeling fine at this point. Blood cultures pending. Got 3 days of azihromcyin, will d/c now. Continue ceftriaxone. Oxygen as needed. Was assessed by the speech because of the history of dysphagia. Barium swallow did not show any progression in the dysphagia. Currently on nectar thickened diet. Speech therapy on board. (6) DVT prophylaxis Current Visit: Yes Status: Acute Assessment and Plan: -On home dosing of Eliquis. (7) Dysphagia Current Visit: Yes Status: Acute Assessment and Plan: -On thickened nectar diet -Speech therapy on board (8) Vertigo Current Visit: Yes Status: Acute Assessment and Plan: -Patient complaining of the symptoms that are concerning for the vertigo Etiology unclear. -recently had carotid dopplers whihc were negaitve -Cannot have MRI due to pacemaker -Curently on plavix and eliquis and zetia which we will continue. Was started on meclizine with minimal relief. On Zofran for nausea. (9) Nausea Current Visit: No Status: Acute Assessment and Plan: Improving. Could be because of C. difficile colitis. Continue antibiotics (10) Physical deconditioning Current Visit: Yes Status: Acute Assessment and Plan: 2/2 stroke PT/OT on board - Time Spent with Patient Total time spent is greater than 50% in coordination of care (as documented) at patient's floor/unit and/or counseling patient: Internal Medicine: Result - Labs CBC & Chem 7: 05/29/19 03:35 05/29/19 03:35 Labs: Short CBC 05/29/19 Range/Units 03:35 WBC 6.7 (4.3-11.1) K/mcL Hgb 9.2 L (11.5-15.4) g/dL Hct 29.4 L (35.3-44.9) % Plt Count 256 (140-400) K/mcL Neutrophils # 4.8 (1.6-8.9) K/mcL BMP 05/29/19 03:35 Sodium 141 Potassium 3.8 Chloride 108 H Carbon Dioxide 27 BUN 16 Creatinine 0.93 Glucose 116 H Calcium 9.0 - ABG Interpretation ABG results: PT/INR, D-dimer PT 13.0 Seconds (9.4-12.1) H 05/24/19 18:27 - Impressions Impressions Head CT 05/28/19 13:43 IMPRESSION: No acute intracranial abnormality. Diffuse atrophic changes with findings suggesting chronic microvascular ischemia D/ / Hank Espinal MD / Hank Espinal MD Interpreting Provider: Hank Espinal MD Consult Discharge Plan - Plan Referrals: Edgar Nguyen Jr, MD [Primary Care Provider] - (2) UTI (urinary tract infection) Qualifiers: Urinary tract infection type: acute cystitis Hematuria presence: without hematuria Qualified Code(s): N30.00 - Acute cystitis without hematuria (3) Acute kidney failure Qualifiers: Acute renal failure type: unspecified Qualified Code(s): N17.9 - Acute kidney failure, unspecified (4) Syncope Qualifiers: Syncope type: unspecified Qualified Code(s): R55 - Syncope and collapse (5) Pneumonia Qualifiers: Pneumonia type: due to unspecified organism Laterality: left Lung location: lower lobe of lung Qualified Code(s): J18.1 - Lobar pneumonia, unspecified organism (7) Dysphagia Qualifiers: Dysphagia type: oropharyngeal phase Qualified Code(s): R13.12 - Dysphagia, oropharyngeal phase
[2019-05-29] MEDS: Insulin LISPRO 300 UNITS/3 ML VIAL SQ SCH ×4 (11:21→22:16)
[2019-05-29] MEDS: Apixaban 5 MG TABLET PO SCH ×2 (11:26→22:16)
[2019-05-29] MEDS: Vancomycin Oral Soln 125 MG/2.5 ML UDC PO SCH ×4 (11:27→22:16)
[2019-05-29] MEDS: Ondansetron 4 MG/2 ML VIAL IVP PRN (11:27)
[2019-05-29] MEDS: *HR* Promethazine 25 MG/ML VIAL IVP PRN (16:31)
[2019-05-29] MEDS: Melatonin 3 MG TABLET PO SCH (22:16)
--- NOTE | 2019-05-29 22:56 | Infectious Disease Progress No ---
ID Progress Note Date of Encounter: 05/29/19 Time of Encounter: 18:00 - Subjective Subjective: Patient seen and examined. Worse clinically. Very nauseated and had a few episodes of vomiting. the dizziness and nausea is positional. NO CP, NO SOB, No diarrhea today, no urinary symptoms VS noted Labs reviewed - Objective CBC & Chem 7: 05/29/19 03:35 05/29/19 03:35 - Exam Vitals: Temp Pulse Resp BP Pulse Ox 98.5 F 65 18 119/67 97 05/29/19 20:04 05/29/19 20:04 05/29/19 20:04 05/29/19 20:04 05/29/19 20:04 Exam: GEnearl: appears ill EYES: oscar, EOMI MM dry lungs good air sounds no wheezing CV RRR S1S2 abdomna soft, NT - rodrigues's sign - Assessment and Plan (1) UTI (urinary tract infection) Current Visit: No Status: Acute causative organism Proteus mirabilis R: levaquin, aminoglycosides, bactrim, nitrofurantion currently on rocephin complicated by indwelling massey Qualifiers: Urinary tract infection type: site unspecified Hematuria presence: without hematuria Qualified Code(s): N39.0 - Urinary tract infection, site not specified SNOMED Code(s): 98024810 (2) Pneumonia Current Visit: No Status: Suspected clinically no signs of pneumonia CXR no defnitive I would repeat imaging and if no obvious pneumnia I would deescalate antibiotics Qualifiers: Pneumonia type: due to methicillin-resistant Staphylococcus aureus (MRSA) Laterality: bilateral Lung location: lower lobe of lung Qualified Code(s): J15.212 - Pneumonia due to Methicillin resistant Staphylococcus aureus SNOMED Code(s): 562835072 (3) Clostridium difficile colitis Current Visit: Yes Status: Acute 05/12 C diff pcr negative repeat C diff pcr 05/28 positive SNOMED Code(s): 465181161 (4) Type 2 diabetes mellitus Current Visit: No Status: Chronic Qualifiers: Diabetes mellitus halfway insulin use: with rat exterminator use Diabetes mellitus complication status: with kidney complications Diabetes mellitus complication detail: with chronic kidney disease Chronic kidney disease stage: stage 3 (moderate) Qualified Code(s): E11.22 - Type 2 diabetes mellitus with diabetic chronic kidney disease; N18.3 - Chronic kidney disease, stage 3 (moderate); Z79.4 - senior living (current) use of insulin SNOMED Code(s): 60424594 - Recommendations Recommendations: continue oral vancomycin 125 mg po q6 hours duration of treatment 14 days continue rocephin, on d/c switch to oral omincef x 10 days Hospitalist to address positional vertigo and nausea monitor labs and for drug toxicity Consult Discharge Plan - Plan Referrals: Edgar Nguyen Jr, MD [Primary Care Provider] -
[2019-05-30] MEDS: Budesonide/Formoterol 80/4.5 1 PUFF INH IH SCH (07:46)
[2019-05-30] MEDS ORDERED: cefTRIAXone 1,000 MG in Water for inj. (sterile) 10 ML IVP ONE (09:00)
[2019-05-30] MEDS: Vancomycin Oral Soln 125 MG/2.5 ML UDC PO SCH ×4 (09:33→20:20)
[2019-05-30] MEDS: Apixaban 5 MG TABLET PO SCH ×2 (09:33→20:19)
[2019-05-30] MEDS: Insulin LISPRO 300 UNITS/3 ML VIAL SQ SCH ×4 (09:45→20:20)
--- NOTE | 2019-05-30 14:25 | Discharge Summary ---
Date of Encounter: 05/30/19 Time of Encounter: 08:15 - Discharge Diagnosis (1) Clostridium difficile colitis Priority: Secondary Status: Acute (2) UTI (urinary tract infection) Priority: Primary Status: Acute Qualifiers: Urinary tract infection type: acute cystitis Hematuria presence: without hematuria Qualified Code(s): N30.00 - Acute cystitis without hematuria (3) Acute kidney failure Priority: Secondary Status: Acute Qualifiers: Acute renal failure type: unspecified Qualified Code(s): N17.9 - Acute kidney failure, unspecified (4) Syncope Priority: Secondary Status: Acute Qualifiers: Syncope type: unspecified Qualified Code(s): R55 - Syncope and collapse (5) Pneumonia Priority: Secondary Status: Suspected Qualifiers: Pneumonia type: due to unspecified organism Laterality: left Lung location: lower lobe of lung Qualified Code(s): J18.1 - Lobar pneumonia, unspecified organism (6) DVT prophylaxis Priority: Secondary Status: Acute (7) Dysphagia Priority: Secondary Status: Acute Qualifiers: Dysphagia type: oropharyngeal phase Qualified Code(s): R13.12 - Dysphagia, oropharyngeal phase (8) Vertigo Priority: Secondary Status: Acute (9) Nausea Priority: Secondary Status: Acute (10) Physical deconditioning Priority: Secondary Status: Acute Hospital course: Ms. Florez is a 79 year old female with a past medical history significant for CVA in, DVT, diabetes mellitus, hyperlipidemia, MS presented to the hospital because of protracted nausea, vomiting, weakness and syncope. Initial lab work showed acute kidney injury, UTI. CR was concernig for the PNA. Patient was started on ceftriaxone for the UTI. Was also on azithromycin for the PNA. Patient urine culture grew Proteus sensitive to ceftriaxone. Completed the course of antibiotics in the hospital for totla of 7 days. During the hospitalization, patient was found to have severe diarrhea. C. difficile was positive on 05/28. Patient had been started on oral vancomycin, to be continued for a total of 10 days. Today would be day 3. Patient had severe vertigo, nausea and vomiting. Symptoms were worse with physical therapy and movement. Due to the patient protracted nausea and vomiting and presentation with syncope, there were concerns of posterior circulation stroke. Neurology was consulted. Patient got a CT scan of the head did not show any new abnormalities. Patient cannot get the MRI because of the pacemaker. Explained to the patient and the that her symptoms could be related to the new onset stroke but are most likely because of the C. difficile. Patient wants her to be transferred to [facility] for further evaluation as the patient was previously sent to [facility] after the first stroke and she has established care there. Transfer call was placed and the patient was accepted. Patient will be transferred to [facility]. Patient to be continued on oral vancomycin for total of 10 days starting from 05/28. - Time Spent with Patient Total time spent providing and/or coordinating discharge services: 45 minutes - Discharge Medications Prescriptions: New Vancomycin Oral Soln [Firvanq] 125 mg PO QID 9 Days udc Continued Albuterol Sulfate [Ventolin Hfa] 1 puff IH Q6H PRN PRN Reason: Wheezing Sertraline [Zoloft] 50 mg GTUBE DAILY Modafinil [Provigil] 100 mg GTUBE BID Ipratropium/Albuterol Neb [Duoneb] 3 ml IH Q6H PRN PRN Reason: Shortness Of Breath Insulin ASPART [NovoLOG] 0 unit SQ QPM Loperamide HCl [Imodium A-D] 2 mg PO PRN PRN PRN Reason: Diarrhea Ibuprofen [Ibu] 400 mg PO Q8H PRN PRN Reason: Pain Ezetimibe [Zetia] 10 mg GTUBE DAILY Clopidogrel Bisulfate [Plavix] 75 mg GTUBE DAILY Bisacodyl [Dulcolax] 10 mg RC DAILY PRN PRN Reason: Constipation Fluticasone/Vilanterol [Breo Ellipta 100-25 Mcg INH] 1 puff IH DAILY Apixaban [Eliquis] 5 mg GTUBE Q12H Ondansetron HCl [Zofran] 4 mg GTUBE Q6H PRN PRN Reason: Nausea And Vomiting Melatonin 3 mg GTUBE HS Pantoprazole Sodium [Protonix] 40 mg PO DAILY Home Medications: Albuterol Sulfate [Ventolin Hfa] 1 puff IH Q6H PRN 05/11/19 [History] Apixaban [Eliquis] 5 mg GTUBE Q12H 05/11/19 [History] Bisacodyl [Dulcolax] 10 mg RC DAILY PRN 05/11/19 [History] Clopidogrel Bisulfate [Plavix] 75 mg GTUBE DAILY 05/11/19 [History] Ezetimibe [Zetia] 10 mg GTUBE DAILY 05/11/19 [History] Fluticasone/Vilanterol [Breo Ellipta 100-25 Mcg INH] 1 puff IH DAILY 05/11/19 [History] Ibuprofen [Ibu] 400 mg PO Q8H PRN 05/11/19 [History] Insulin ASPART [NovoLOG] 0 unit SQ QPM 05/11/19 [History] Ipratropium/Albuterol Neb [Duoneb] 3 ml IH Q6H PRN 05/11/19 [History] Loperamide HCl [Imodium A-D] 2 mg PO PRN PRN 05/11/19 [History] Melatonin 3 mg GTUBE HS 05/11/19 [History] Modafinil [Provigil] 100 mg GTUBE BID 05/11/19 [History] Ondansetron HCl [Zofran] 4 mg GTUBE Q6H PRN 05/11/19 [History] Sertraline [Zoloft] 50 mg GTUBE DAILY 05/11/19 [History] Pantoprazole Sodium [Protonix] 40 mg PO DAILY 05/24/19 [History] Vancomycin Oral Soln [Firvanq] 125 mg PO QID 9 Days udc 05/30/19 [Rx] Allergies/Adverse Reactions: Allergy/AdvReac Type Severity Reaction Status Date / Time codeine AdvReac See Verified 05/25/19 08:00 Comments morphine AdvReac Nausea Verified 05/25/19 08:00 promethazine [From Phenergan] AdvReac Confusion Verified 05/25/19 08:00 propoxyphene AdvReac Nausea Verified 05/25/19 08:00 [From Darvocet-N] Date of admission: 05/25/19 16:07 Primary care physician: Edgar Nguyen Jr, MD Consults: 05/24/19 23:14 Consult to Pastoral Services [CONS] Routine Comment: 05/25/19 01:30 Consult to Speech Therapy [CONS] Routine Comment: Evaluate, develop and implement POC Reason for Consult: assess po/swallow capabilities; has PEG from old stroke Call Completed: No 05/25/19 12:19 Consult to Nutrition [CONS] Routine Comment: Consulting Provider: NUTRITION Reason for Dietary Consult: Tube Feed Start & Manage 05/26/19 08:20 Consult to Nurse Navigator [CONS] Routine Comment: saurav 05/28/19 10:27 Consult to Neurology [CONS] Routine Consulting Provider: Neu[facility] Reason for Consult: History of stroke, complaining of non resolving nausea, concerns for another stroke Call Completed: Yes 05/28/19 13:48 Consult to Infectious Diseases [CONS] Routine Consulting Provider: Infectious Disease R[facility] Reason for Consult: C.Diff posiitve with UTI. Needs recommendations for the UTI Call Completed: Yes 05/29/19 09:03 Consult to Physical Therapy [CONS] Routine Comment: Evaluate, develop and implement POC Reason for Consult: Weakness Syncope Hx of stroke Does patient have active BEDREST order?: No Is patient medically & hemodynamically stable?: Yes 05/29/19 09:04 Consult to Occupational Therapy [CONS] Routine Comment: Evaluate, develop and implement POC Reason for Consult: Weakness Syncope Hx of stroke Does patient have active BEDREST order?: No Is patient medically & hemodynamically stable?: Yes - Constitutional Vitals: Temp Pulse Resp BP Pulse Ox 98.8 F 76 18 138/76 96 05/30/19 12:19 05/30/19 12:19 05/30/19 12:19 05/30/19 12:19 05/30/19 12:19 General appearance: Present: cooperative, A&O X 3, pleasant, answers questions appropriately Exam: General: Alert and oriented, no physical distress, able to follow commands. Respiratory: Normal vesicular breathing, no added sounds, breathing equal in both sides. CVS: Normal heart sounds, no murmurs, regular rhthm, no edema Extremities: No peripheral edema, peripheral pulses intact. Lymph nodes: No lymphadenopathy Gastrointestinal: Soft, nontender abdomen, normal abdominal sounds. No distention noted. Genitourinary: No paravertebral tenderness. Skin: No rash, ulcers or wound. Neurological: Alert and oriented. No nystagmus appreciated - Patient Status Disposition: Transfer Other Condition: Fair - Discharge Instructions Follow Up With: Edgar Nguyen Jr, MD [Primary Care Provider] - Forms: ED Satisfaction Letter
[2019-05-30] MEDS: Melatonin 3 MG TABLET PO SCH (20:20)
[2019-05-31 03:28] VITALS: BP 162/85
[2019-05-31] MEDS: Budesonide/Formoterol 80/4.5 1 PUFF INH IH SCH (07:29)
[2019-05-31] MEDS: Insulin LISPRO 300 UNITS/3 ML VIAL SQ SCH (08:09)
== END 2019-05-31 08:35 | disposition other institution (70) ==
LOC: 3ANU 17:31 → EMEROOARM 17:31 → SUATTDRO 20:49 → 3ANU 22:30
PROVIDERS: ADMIT Family Medicine; ATTEND Internal Medicine

== ENCOUNTER 2020-06-05 08:05 | Observation (INO) ==
[2020-06-05] MEDS ORDERED: Ondansetron 4 MG/2 ML VIAL IVP ONE (08:19)
[2020-06-05] MEDS ORDERED: 0.9 % Sodium Chloride 500 ML IVC ONE (08:19)
[2020-06-05 09:26] LABS: Hematocrit 40.9 % (35.3-44.9); Mean Corpuscular HGB Conc 31.8 g/dL (31.6-35.5); Mean Corpuscular Hemoglobin 28.8 pg (28.0-33.3); Mean Corpuscular Volume 90.5 fL (83.0-100.0); Mean Platelet Volume 10.2 fL (9.4-12.4); Platelet Count 228 K/mcL (140-400); Red Blood Count 4.52 M/mcL (3.82-4.97); Red Cell Distribution Width 14.3 % (11.5-14.5)
[2020-06-05 09:53] LABS: Alanine Aminotransferase 14 Units/L (7-52); Albumin 4.3 g/dL (3.5-5.7); Albumin/Globulin Ratio 1.5 (1.1-2.2); Alkaline Phosphatase 81 Units/L (34-104); Aspartate Amino Transferase 13 Units/L (13-39); BUN/Creatinine Ratio 19 (6-26); Bilirubin,Direct 0.1 mg/dL (0.0-0.2); Bilirubin,Indirect 0.4 mg/dL (0.0-1.0); Bilirubin,Total 0.5 mg/dL (0.3-1.0); Blood Urea Nitrogen 31 mg/dL (8-23); Calcium 9.7 mg/dL (8.6-10.3); Carbon Dioxide 23 mEq/L (23-29); Chloride 104 mEq/L (98-107); Globulin 2.8 g/dL (2.4-3.5); Glucose 316 mg/dL (70-105); Lipase 21 Units/L (11-82); Osmolality,Calculated 301 (280-300); Potassium 4.5 mEq/L (3.5-5.1); Sodium 136 mEq/L (136-145); Total Protein 7.1 g/dL (6.4-8.9); Troponin I < 0.03 ng/mL (< 0.04); eGFR For African Americans 36 (> 60); eGFR For Non-African Americans 30 (> 60)
[2020-06-05 10:12] LABS: Adenovirus Not Detected (Not Detect); Bordetella Pertussis Not Detected (Not Detect); Chlamydophila pneumoniae Not Detected (Not Detect); Coronavirus 229E Not Detected (Not Detect); Coronavirus HKU1 Not Detected (Not Detect); Coronavirus NL63 Not Detected (Not Detect); Coronavirus OC43 Not Detected (Not Detect); Human Metapneumovirus Not Detected (Not Detect); Human Rhinovirus/Enterovirus Not Detected (Not Detect); Influenza A Subtype 2009 H1 Not Detected (Not Detect); Influenza B Not Detected (Not Detect); Mycoplasma pneumoniae Not Detected (Not Detect); Parainfluenza Virus 1 Not Detected (Not Detect); Parainfluenza Virus 2 Not Detected (Not Detect); Parainfluenza Virus 3 Not Detected (Not Detect); Parainfluenza Virus 4 Not Detected (Not Detect); Respiratory Syncytial Virus Not Detected (Not Detect); SARS-CoV-2 Not Detected (Not Detect)
[2020-06-05] MEDS ORDERED: cefTRIAXone 1,000 MG in 0.9 % Sodium Chloride Mini Bag 100 ML IVPB ONE (11:38)
[2020-06-05] MEDS ORDERED: Azithromycin 500 MG in D5% in Water 250 ML IVPB ONE (11:38)
[2020-06-05] MEDS ORDERED: cefTRIAXone 1,000 MG in Water for inj. (sterile) 10 ML IVP ONE (12:10)
[2020-06-05] MEDS ORDERED: *HR* Promethazine 25 MG/ML VIAL IVP PRN (13:42)
[2020-06-05] MEDS ORDERED: Acetaminophen 325 MG TABLET PO PRN (13:42)
[2020-06-05] MEDS ORDERED: Ipratropium/Albuterol Neb 3 ML IH PRN (13:45)
[2020-06-05] MEDS ORDERED: Furosemide 40 MG/4 ML VIAL IVP ONE (13:46)
[2020-06-05] MEDS: Ondansetron 4 MG/2 ML VIAL IVP PRN (14:11)
[2020-06-05] MEDS ORDERED: D5% in Water 1,000 ML IVC PRN (15:32)
[2020-06-05] MEDS ORDERED: *HR* Dextrose 50 % in Water (Vial) 50 ML VIAL IVP PRN (15:32)
[2020-06-05] MEDS ORDERED: Dextrose Gel 15 GM/37.5 ML TUBE PO PRN ×2 (15:32)
[2020-06-05 16:37] LABS: Bacteria,Urine Many per hpf (None-Few); Bilirubin,Urine Negative (Negative); Blood,Urine Negative (Negative); Clarity,Urine Clear (Clear); Color,Urine Light-Yellow (Yellow); Glucose,Urine (UA) 70 mg/dL (Normal); Ketones,Urine Negative (Negative); Leukocyte Esterase,Urine Large (Negative); Mucus,Urine Moderate per lpf (None-Few); Nitrite,Urine Negative (Negative); PH,Urine 5.5 pH Units (5.0-8.0); Protein,Urine Trace mg/dL (Neg-Trace); Squamous Epithelial Cell,Urine Few per hpf (None-Few); Urobilinogen,Urine Normal (Normal); WBC,Urine 30-50 per hpf (0-3)
[2020-06-05] MEDS: Ampicillin/Sulbactam 3,000 MG in 0.9 % Sodium Chloride Mini Bag 100 ML IVPB SCH ×2 (16:52→23:51)
[2020-06-05] MEDS: Insulin LISPRO 300 UNITS/3 ML VIAL SQ SCH ×2 (16:52→20:57)
[2020-06-05] MEDS: Haloperidol Lactate 5 MG/ML VIAL IVP PRN (17:53)
[2020-06-05] MEDS: Apixaban 5 MG TABLET PO SCH (20:57)
[2020-06-06] MEDS: Ampicillin/Sulbactam 3,000 MG in 0.9 % Sodium Chloride Mini Bag 100 ML IVPB SCH ×2 (05:47→12:54)
[2020-06-06] MEDS: Budesonide/Formoterol 80/4.5 1 PUFF INH IH SCH ×2 (07:08→19:57)
[2020-06-06] MEDS: Insulin LISPRO 300 UNITS/3 ML VIAL SQ SCH ×4 (07:25→20:09)
[2020-06-06 07:44] LABS: Hematocrit 41.7 % (35.3-44.9); Hemoglobin 12.7 g/dL (11.5-15.4); Mean Corpuscular HGB Conc 30.5 g/dL (31.6-35.5); Mean Corpuscular Hemoglobin 28.3 pg (28.0-33.3); Mean Corpuscular Volume 93.1 fL (83.0-100.0); Platelet Count 227 K/mcL (140-400); Red Blood Count 4.48 M/mcL (3.82-4.97); Red Cell Distribution Width 14.6 % (11.5-14.5); White Blood Count 7.2 K/mcL (4.3-11.1)
[2020-06-06 07:57] LABS: Calcium 9.4 mg/dL (8.6-10.3); Potassium 4.5 mEq/L (3.5-5.1)
[2020-06-06] MEDS: Apixaban 5 MG TABLET PO SCH ×2 (08:23→20:10)
[2020-06-06] MEDS: Metoprolol XL (24 HR) Succ 50 MG TAB.ER.24H PO SCH (08:23)
[2020-06-06] MEDS ORDERED: cefTRIAXone 1,000 MG in Water for inj. (sterile) 10 ML IVP SCH (09:00)
[2020-06-06 09:01] LABS: Estimated Average Glucose 235 mg/dl
[2020-06-06] MEDS ORDERED: Furosemide 40 MG/4 ML VIAL IVP ONE (10:26)
[2020-06-06] MEDS ORDERED: Perflutren Lipid Microsphere 1.3 ML in 0.9 % Sodium Chloride 8.7 ML IVP PRN (12:38)
[2020-06-07] MEDS: Haloperidol Lactate 5 MG/ML VIAL IVP PRN (04:44)
[2020-06-07 06:54] LABS: Basophils # 0.1 K/mcL (0.0-0.2); Basophils % 0.6 %; Eosinophils # 0.4 K/mcL (0.0-0.6); Eosinophils % 4.5 %; Hematocrit 40.4 % (35.3-44.9); Hemoglobin 12.4 g/dL (11.5-15.4); Immature Granulocytes % 0.4 % (0-4); Lymphocytes # 0.9 K/mcL (0.6-4.6); Lymphocytes % 10.2 %; Mean Corpuscular HGB Conc 30.7 g/dL (31.6-35.5); Mean Corpuscular Hemoglobin 28.4 pg (28.0-33.3); Mean Corpuscular Volume 92.7 fL (83.0-100.0); Mean Platelet Volume 10.3 fL (9.4-12.4); Monocytes # 0.6 K/mcL (0.0-1.3); Monocytes % 6.8 %; Neutrophils # 6.5 K/mcL (1.6-8.9); Platelet Count 232 K/mcL (140-400); Red Blood Count 4.36 M/mcL (3.82-4.97); Red Cell Distribution Width 14.3 % (11.5-14.5); Segmented Neutrophils % 77.5 %; White Blood Count 8.4 K/mcL (4.3-11.1)
[2020-06-07 07:05] LABS: Calcium 9.3 mg/dL (8.6-10.3); Potassium 4.2 mEq/L (3.5-5.1)
[2020-06-07] MEDS: Budesonide/Formoterol 80/4.5 1 PUFF INH IH SCH ×2 (07:55→19:57)
[2020-06-07] MEDS: Amoxicillin/Clavulanate 500 MG TABLET PO SCH ×2 (08:38→17:31)
[2020-06-07] MEDS: Insulin LISPRO 300 UNITS/3 ML VIAL SQ SCH ×4 (08:38→20:46)
[2020-06-07] MEDS: Metoprolol XL (24 HR) Succ 50 MG TAB.ER.24H PO SCH (08:38)
[2020-06-07] MEDS: Apixaban 5 MG TABLET PO SCH ×2 (08:38→20:45)
[2020-06-07] MEDS: Ondansetron 4 MG/2 ML VIAL IVP PRN (08:40)
[2020-06-07] MEDS ORDERED: E-Z-HD (BARIUM SULF) SUSPENSION PO ONE (10:23)
[2020-06-07] MEDS ORDERED: E-Z-PAQUE (BARIUM SULF) SUSP 1 BOTTLE PO ONE (10:23)
[2020-06-08 02:29] LABS: Basophils # 0.1 K/mcL (0.0-0.2); Basophils % 0.7 %; Eosinophils # 0.4 K/mcL (0.0-0.6); Eosinophils % 5.2 %; Hematocrit 39.1 % (35.3-44.9); Hemoglobin 12.3 g/dL (11.5-15.4); Immature Granulocytes % 0.4 % (0-4); Lymphocytes # 1.1 K/mcL (0.6-4.6); Lymphocytes % 14.3 %; Mean Corpuscular HGB Conc 31.5 g/dL (31.6-35.5); Mean Corpuscular Hemoglobin 29.4 pg (28.0-33.3); Mean Corpuscular Volume 93.5 fL (83.0-100.0); Monocytes # 0.6 K/mcL (0.0-1.3); Monocytes % 7.3 %; Neutrophils # 5.5 K/mcL (1.6-8.9); Platelet Count 222 K/mcL (140-400); Red Blood Count 4.18 M/mcL (3.82-4.97); Red Cell Distribution Width 14.1 % (11.5-14.5); Segmented Neutrophils % 72.1 %; White Blood Count 7.6 K/mcL (4.3-11.1)
[2020-06-08 02:48] LABS: Calcium 9.4 mg/dL (8.6-10.3)
[2020-06-08] MEDS: Budesonide/Formoterol 80/4.5 1 PUFF INH IH SCH (08:07)
[2020-06-08] MEDS: Insulin LISPRO 300 UNITS/3 ML VIAL SQ SCH ×2 (08:25→12:26)
[2020-06-08] MEDS: Apixaban 5 MG TABLET PO SCH (08:27)
[2020-06-08] MEDS: Metoprolol XL (24 HR) Succ 50 MG TAB.ER.24H PO SCH (08:27)
[2020-06-08] MEDS: Amoxicillin/Clavulanate 500 MG TABLET PO SCH (08:27)
[2020-06-08 11:03] VITALS: BP 147/64
== END 2020-06-08 16:35 | disposition home health service (06) ==
LOC: EMEROOARM 08:05 → 3ANU 08:05 → SUATTDRO 12:09 → 3ANU 12:44
PROVIDERS: ADMIT Internal Medicine; ATTEND Internal Medicine

== ENCOUNTER 2021-04-26 10:29 | Inpatient (IN) ==
[2021-04-26] MEDS ORDERED: Ondansetron 4 MG/2 ML VIAL IVP ONE (10:42)
[2021-04-26] MEDS ORDERED: Ipratropium/Albuterol Neb 3 ML IH ONE ×2 (10:42→12:21)
[2021-04-26] MEDS ORDERED: methylPREDNISolone 125 MG/2 ML VIAL IVP ONE (10:52)
[2021-04-26 11:15] LABS: Basophils % 0.6 %; Eosinophils # 0.1 K/mcL (0.0-0.6); Eosinophils % 1.5 %; Hematocrit 39.4 % (35.3-44.9); Immature Granulocytes % 0.2 % (0-4); Lymphocytes % 21.2 %; Mean Corpuscular HGB Conc 30.5 g/dL (31.6-35.5); Mean Corpuscular Hemoglobin 28.2 pg (28.0-33.3); Mean Corpuscular Volume 92.7 fL (83.0-100.0); Mean Platelet Volume 10.1 fL (9.4-12.4); Monocytes # 0.5 K/mcL (0.0-1.3); Monocytes % 10.6 %; Neutrophils # 3.1 K/mcL (1.6-8.9); Platelet Count 180 K/mcL (140-400); Red Blood Count 4.25 M/mcL (3.82-4.97); Red Cell Distribution Width 14.8 % (11.5-14.5); Segmented Neutrophils % 65.9 %; White Blood Count 4.7 K/mcL (4.3-11.1)
[2021-04-26 11:25] LABS: INR 1.6; Prothrombin Time 18.1 Seconds (9.4-12.1)
[2021-04-26 11:26] LABS: Activated Partial Thrombo Time 34.1 Seconds (26.0-36.0)
[2021-04-26 11:41] LABS: Albumin/Globulin Ratio 1.8 (1.1-2.2); Bilirubin,Indirect 0.4 mg/dL (0.0-1.0); Bilirubin,Total 0.4 mg/dL (0.3-1.0); Calcium 8.8 mg/dL (8.6-10.3); Globulin 2.2 g/dL (2.4-3.5); Magnesium 2.1 mg/dL (1.6-2.6); Phosphorous 4.1 mg/dL (2.7-4.5); Potassium 4.6 mEq/L (3.5-5.1); Total Protein 6.2 g/dL (6.4-8.9); Troponin I 0.03 ng/mL (< 0.04)
[2021-04-26 12:10] LABS: ABG Base Excess -3 mEq/L (-2 to 3); ABG HCO3 24 mEq/L (21-27); ABG Oxygen Saturation 83 % (95-98); ABG PCO2 46 mmHg (35-45); ABG PH 7.32 pH Units (7.32-7.45); ABG PO2 51 mmHg (85-104); ABG TCO2 25 mEq/L (20-26)
[2021-04-26] MEDS ORDERED: Acetaminophen 325 MG TABLET PO PRN (13:03)
[2021-04-26] MEDS ORDERED: Naloxone 0.4 MG/ML INJ IVP PRN (13:03)
[2021-04-26] MEDS: Ipratropium 1 PUFF INHALER IH SCH ×2 (15:27→20:29)
[2021-04-26] MEDS ORDERED: *HR* Dextrose 50 % in Water (Vial) 50 ML VIAL IVP PRN (18:26)
[2021-04-26] MEDS ORDERED: Dextrose Gel 15 GM/37.5 ML TUBE PO PRN ×2 (18:26)
[2021-04-26] MEDS ORDERED: D5% in Water 1,000 ML IVC PRN (18:26)
[2021-04-26] MEDS: Insulin LISPRO 300 UNITS/3 ML VIAL SUBQ SCH ×2 (19:10→20:22)
[2021-04-26] MEDS: Apixaban 5 MG TABLET PO SCH (20:21)
[2021-04-26] MEDS: Nystatin POWDER 30 GM BOTTLE TP SCH (22:30)
[2021-04-27] MEDS: Ipratropium 1 PUFF INHALER IH SCH ×7 (00:26→23:35)
[2021-04-27 01:23] LABS: Hematocrit 37.4 % (35.3-44.9); Hemoglobin 11.9 g/dL (11.5-15.4); Immature Granulocytes % 0.3 % (0-4); Lymphocytes # 0.5 K/mcL (0.6-4.6); Lymphocytes % 15.9 %; Mean Corpuscular HGB Conc 31.8 g/dL (31.6-35.5); Mean Corpuscular Hemoglobin 29.1 pg (28.0-33.3); Mean Corpuscular Volume 91.4 fL (83.0-100.0); Mean Platelet Volume 10.1 fL (9.4-12.4); Monocytes # 0.1 K/mcL (0.0-1.3); Monocytes % 3.7 %; Neutrophils # 2.4 K/mcL (1.6-8.9); Platelet Count 173 K/mcL (140-400); Red Blood Count 4.09 M/mcL (3.82-4.97); Red Cell Distribution Width 14.5 % (11.5-14.5); Segmented Neutrophils % 80.1 %
[2021-04-27 01:39] LABS: D-Dimer 2282 ng/mLFEU (0-500)
[2021-04-27 01:40] LABS: Calcium 8.6 mg/dL (8.6-10.3); Magnesium 2.2 mg/dL (1.6-2.6)
[2021-04-27 02:05] LABS: Fibrinogen 315 mg/dL (169-393)
[2021-04-27 04:20] LABS: Estimated Average Glucose 169 mg/dl; Hemoglobin A1C 7.5 %
[2021-04-27] MEDS: Apixaban 5 MG TABLET PO SCH ×2 (09:04→20:24)
[2021-04-27] MEDS: Metoprolol XL (24 HR) Succ 50 MG TAB.ER.24H PO SCH (09:04)
[2021-04-27] MEDS: Loratadine 10 MG TABLET PO SCH (09:04)
[2021-04-27] MEDS: Nystatin POWDER 30 GM BOTTLE TP SCH ×2 (09:06→20:24)
[2021-04-27] MEDS: Insulin LISPRO 300 UNITS/3 ML VIAL SUBQ SCH ×4 (09:07→20:17)
[2021-04-27] MEDS: Pantoprazole 40 MG VIAL IVP SCH (15:10)
[2021-04-28 02:12] LABS: D-Dimer 2182 ng/mLFEU (0-500)
[2021-04-28 02:19] LABS: Fibrinogen 295 mg/dL (169-393)
[2021-04-28 02:22] LABS: Calcium 8.6 mg/dL (8.6-10.3); Magnesium 2.2 mg/dL (1.6-2.6); Potassium 4.6 mEq/L (3.5-5.1)
[2021-04-28] MEDS: Ipratropium 1 PUFF INHALER IH SCH ×6 (03:25→23:21)
[2021-04-28 07:17] LABS: Basophils % 0.3 %; Eosinophils # 0.1 K/mcL (0.0-0.6); Eosinophils % 2.2 %; Hematocrit 37.4 % (35.3-44.9); Hemoglobin 11.6 g/dL (11.5-15.4); Immature Granulocytes % 0.3 % (0-4); Lymphocytes % 15.5 %; Mean Corpuscular Hemoglobin 28.9 pg (28.0-33.3); Mean Corpuscular Volume 93.3 fL (83.0-100.0); Mean Platelet Volume 10.1 fL (9.4-12.4); Monocytes # 0.4 K/mcL (0.0-1.3); Monocytes % 6.3 %; Neutrophils # 4.8 K/mcL (1.6-8.9); Platelet Count 166 K/mcL (140-400); Red Blood Count 4.01 M/mcL (3.82-4.97); Red Cell Distribution Width 14.5 % (11.5-14.5); Segmented Neutrophils % 75.4 %; White Blood Count 6.3 K/mcL (4.3-11.1)
[2021-04-28] MEDS: Insulin LISPRO 300 UNITS/3 ML VIAL SUBQ SCH ×4 (08:00→20:40)
[2021-04-28] MEDS: Pantoprazole 40 MG VIAL IVP SCH (08:00)
[2021-04-28] MEDS: Loratadine 10 MG TABLET PO SCH (08:01)
[2021-04-28] MEDS: Metoprolol XL (24 HR) Succ 50 MG TAB.ER.24H PO SCH (08:01)
[2021-04-28] MEDS: Apixaban 5 MG TABLET PO SCH ×2 (08:02→20:39)
[2021-04-28] MEDS: Nystatin POWDER 30 GM BOTTLE TP SCH ×2 (12:41→20:40)
[2021-04-29 00:42] LABS: Basophils % 0.2 %; Hematocrit 36.9 % (35.3-44.9); Hemoglobin 11.2 g/dL (11.5-15.4); Immature Granulocytes % 0.2 % (0-4); Lymphocytes # 0.6 K/mcL (0.6-4.6); Lymphocytes % 12.7 %; Mean Corpuscular HGB Conc 30.4 g/dL (31.6-35.5); Mean Corpuscular Hemoglobin 28.4 pg (28.0-33.3); Mean Corpuscular Volume 93.4 fL (83.0-100.0); Mean Platelet Volume 10.2 fL (9.4-12.4); Monocytes # 0.3 K/mcL (0.0-1.3); Monocytes % 7.5 %; Neutrophils # 3.5 K/mcL (1.6-8.9); Platelet Count 150 K/mcL (140-400); Red Blood Count 3.95 M/mcL (3.82-4.97); Red Cell Distribution Width 14.2 % (11.5-14.5); Segmented Neutrophils % 79.4 %; White Blood Count 4.4 K/mcL (4.3-11.1)
[2021-04-29 00:57] LABS: Calcium 8.4 mg/dL (8.6-10.3); Magnesium 2.1 mg/dL (1.6-2.6); Potassium 4.9 mEq/L (3.5-5.1)
[2021-04-29] MEDS: Ipratropium 1 PUFF INHALER IH SCH ×6 (04:10→22:58)
[2021-04-29] MEDS: Insulin LISPRO 300 UNITS/3 ML VIAL SUBQ SCH ×4 (08:40→21:52)
[2021-04-29] MEDS: Apixaban 5 MG TABLET PO SCH ×2 (08:44→21:52)
[2021-04-29] MEDS: Metoprolol XL (24 HR) Succ 50 MG TAB.ER.24H PO SCH (08:45)
[2021-04-29] MEDS: Loratadine 10 MG TABLET PO SCH (08:45)
[2021-04-29] MEDS: Pantoprazole 40 MG VIAL IVP SCH (08:47)
[2021-04-29] MEDS: Nystatin POWDER 30 GM BOTTLE TP SCH ×2 (08:49→21:55)
[2021-04-29] MEDS ORDERED: Furosemide 20 MG/2 ML VIAL IVP ONE (14:43)
[2021-04-30 03:40] LABS: Basophils % 0.2 %; Eosinophils % 0.2 %; Hematocrit 38.6 % (35.3-44.9); Hemoglobin 11.6 g/dL (11.5-15.4); Immature Granulocytes % 0.6 % (0-4); Lymphocytes # 0.6 K/mcL (0.6-4.6); Lymphocytes % 10.9 %; Mean Corpuscular HGB Conc 30.1 g/dL (31.6-35.5); Mean Corpuscular Volume 93.2 fL (83.0-100.0); Mean Platelet Volume 9.9 fL (9.4-12.4); Monocytes # 0.4 K/mcL (0.0-1.3); Monocytes % 6.8 %; Neutrophils # 4.4 K/mcL (1.6-8.9); Platelet Count 156 K/mcL (140-400); Red Blood Count 4.14 M/mcL (3.82-4.97); Segmented Neutrophils % 81.3 %; White Blood Count 5.4 K/mcL (4.3-11.1)
[2021-04-30 03:57] LABS: Calcium 8.7 mg/dL (8.6-10.3); Magnesium 2.2 mg/dL (1.6-2.6); Potassium 4.8 mEq/L (3.5-5.1)
[2021-04-30] MEDS: Ipratropium 1 PUFF INHALER IH SCH ×6 (04:38→23:33)
[2021-04-30] MEDS ORDERED: Furosemide 20 MG/2 ML VIAL IVP ONE (07:12)
[2021-04-30] MEDS: Dexamethasone Sodium Phos/PF 10 MG/ML VIAL IVP SCH (08:59)
[2021-04-30] MEDS: Pantoprazole 40 MG VIAL IVP SCH (08:59)
[2021-04-30] MEDS: Insulin LISPRO 300 UNITS/3 ML VIAL SUBQ SCH ×3 (09:00→17:40)
[2021-04-30] MEDS: Apixaban 5 MG TABLET PO SCH ×2 (09:00→21:21)
[2021-04-30] MEDS: Metoprolol XL (24 HR) Succ 50 MG TAB.ER.24H PO SCH (09:00)
[2021-04-30] MEDS: Loratadine 10 MG TABLET PO SCH (09:00)
[2021-04-30] MEDS: Nystatin POWDER 30 GM BOTTLE TP SCH ×2 (09:01→21:23)
[2021-04-30] MEDS: Insulin DETEMIR 100 UNIT/ML X5UNITS SUBQ SCH (21:21)
[2021-04-30] MEDS: Ondansetron 4 MG/2 ML VIAL IVP PRN (21:30)
[2021-05-01] MEDS: Ipratropium 1 PUFF INHALER IH SCH ×6 (03:31→23:47)
[2021-05-01 04:45] LABS: Basophils % 0.2 %; Eosinophils % 0.2 %; Hematocrit 39.8 % (35.3-44.9); Hemoglobin 12.4 g/dL (11.5-15.4); Immature Granulocytes % 1.2 % (0-4); Lymphocytes # 0.5 K/mcL (0.6-4.6); Lymphocytes % 11.5 %; Mean Corpuscular HGB Conc 31.2 g/dL (31.6-35.5); Mean Corpuscular Hemoglobin 28.2 pg (28.0-33.3); Mean Corpuscular Volume 90.7 fL (83.0-100.0); Mean Platelet Volume 10.4 fL (9.4-12.4); Monocytes # 0.4 K/mcL (0.0-1.3); Monocytes % 9.2 %; Neutrophils # 3.3 K/mcL (1.6-8.9); Platelet Count 180 K/mcL (140-400); Red Blood Count 4.39 M/mcL (3.82-4.97); Red Cell Distribution Width 14.1 % (11.5-14.5); Segmented Neutrophils % 77.7 %; White Blood Count 4.3 K/mcL (4.3-11.1)
[2021-05-01 05:05] LABS: Calcium 9.1 mg/dL (8.6-10.3); Magnesium 2.2 mg/dL (1.6-2.6); Potassium 4.6 mEq/L (3.5-5.1)
[2021-05-01] MEDS: Insulin LISPRO 300 UNITS/3 ML VIAL SUBQ SCH ×3 (09:32→17:09)
[2021-05-01] MEDS: Pantoprazole 40 MG VIAL IVP SCH (10:04)
[2021-05-01] MEDS: Dexamethasone Sodium Phos/PF 10 MG/ML VIAL IVP SCH (10:04)
[2021-05-01] MEDS: Metoprolol XL (24 HR) Succ 50 MG TAB.ER.24H PO SCH (10:05)
[2021-05-01] MEDS: Nystatin POWDER 30 GM BOTTLE TP SCH ×2 (10:05→21:56)
[2021-05-01] MEDS: Loratadine 10 MG TABLET PO SCH (10:05)
[2021-05-01] MEDS: Apixaban 5 MG TABLET PO SCH ×2 (10:05→21:55)
[2021-05-01] MEDS: Ondansetron 4 MG/2 ML VIAL IVP PRN (12:03)
[2021-05-01] MEDS: Insulin DETEMIR 100 UNIT/ML X5UNITS SUBQ SCH (21:55)
[2021-05-02] MEDS: Ipratropium 1 PUFF INHALER IH SCH ×3 (03:26→11:21)
[2021-05-02] MEDS: Insulin LISPRO 300 UNITS/3 ML VIAL SUBQ SCH ×2 (08:59→12:07)
[2021-05-02] MEDS: Pantoprazole 40 MG VIAL IVP SCH (08:59)
[2021-05-02] MEDS: Dexamethasone Sodium Phos/PF 10 MG/ML VIAL IVP SCH (08:59)
[2021-05-02] MEDS: Nystatin POWDER 30 GM BOTTLE TP SCH (09:00)
[2021-05-02] MEDS: Metoprolol XL (24 HR) Succ 50 MG TAB.ER.24H PO SCH (09:00)
[2021-05-02] MEDS: Apixaban 5 MG TABLET PO SCH (09:00)
[2021-05-02] MEDS: Loratadine 10 MG TABLET PO SCH (09:00)
[2021-05-02 10:54] VITALS: PULSE 64
[2021-05-02 11:34] VITALS: BP 139/70; TEMP 97.8; O2SAT 94
== END 2021-05-02 15:09 | DRG 177 ==
LOC: 2NENU 10:29 → EMEROOARM 10:29 → SUATTDRO 13:11 → 2NENU 14:06
PROVIDERS: ADMIT Pharmacist; ATTEND Pharmacist

== ENCOUNTER 2022-03-28 11:06 | Inpatient (IN) ==
[2022-03-28] MEDS ORDERED: Ondansetron 4 MG/2 ML VIAL IVP PRN (12:46)
[2022-03-28] MEDS ORDERED: Iopamidol - 370 500 ML MLS IVP ONE (12:49)
[2022-03-28 13:39] LABS: Basophils % 0.2 %; Eosinophils % 0.3 %; Hematocrit 40.3 % (35.3-44.9); Hemoglobin 12.5 g/dL (11.5-15.4); Immature Granulocytes % 0.4 % (0-4); Lymphocytes # 0.8 K/mcL (0.6-4.6); Lymphocytes % 6.5 %; Mean Corpuscular Hemoglobin 28.7 pg (28.0-33.3); Mean Corpuscular Volume 92.6 fL (83.0-100.0); Mean Platelet Volume 10.2 fL (9.4-12.4); Monocytes # 0.7 K/mcL (0.0-1.3); Monocytes % 5.8 %; Neutrophils # 10.5 K/mcL (1.6-8.9); Platelet Count 218 K/mcL (140-400); Red Blood Count 4.35 M/mcL (3.82-4.97); Segmented Neutrophils % 86.8 %; White Blood Count 12.1 K/mcL (4.3-11.1)
[2022-03-28 13:47] LABS: INR 2.2; Prothrombin Time 24.1 Seconds (9.4-12.1)
[2022-03-28 13:50] LABS: Activated Partial Thrombo Time 38.9 Seconds (26.0-36.0)
[2022-03-28] MEDS ORDERED: cefTRIAXone 1,000 MG in 0.9 % Sodium Chloride Mini Bag 100 ML IVPB ONE (13:59)
[2022-03-28] MEDS ORDERED: Azithromycin 500 MG in 0.9 % Sodium Chloride 250 ML IVPB ONE (13:59)
[2022-03-28 14:06] LABS: Influenza A PCR Negative (Negative); Influenza B PCR Negative (Negative); Resp. Syncytial Virus PCR Negative (Negative); SARS-CoV-2 by PCR (In House) Negative (Negative)
[2022-03-28 14:20] LABS: Albumin 4.1 g/dL (3.5-5.7); Albumin/Globulin Ratio 1.4 (1.1-2.2); Bilirubin,Direct 0.3 mg/dL (0.0-0.2); Bilirubin,Indirect 0.6 mg/dL (0.0-1.0); Bilirubin,Total 0.9 mg/dL (0.3-1.0); Calcium 9.8 mg/dL (8.6-10.3); Potassium 4.5 mEq/L (3.5-5.1); Total Protein 7.1 g/dL (6.4-8.9); Troponin I 0.35 ng/mL (< 0.04)
[2022-03-28] MEDS ORDERED: Furosemide 40 MG/4 ML VIAL IVP ONE (14:35)
[2022-03-28] MEDS ORDERED: Aspirin 325 MG TABLET PO ONE (14:35)
[2022-03-28] MEDS ORDERED: Naloxone 0.4 MG/ML INJ IVP PRN (15:25)
[2022-03-28] MEDS ORDERED: *HR* Dextrose 50 % in Water (Syg) 50 ML SYRINGE IVP PRN (15:25)
[2022-03-28] MEDS ORDERED: Dextrose Gel 15 GM/37.5 ML TUBE PO PRN ×2 (15:25)
[2022-03-28] MEDS ORDERED: Acetaminophen 325 MG TABLET PO PRN (15:25)
[2022-03-28] MEDS ORDERED: D5% in Water 1,000 ML IVC PRN (15:25)
[2022-03-28] MEDS ORDERED: *HR* Heparin 5,000 UNIT/ML VIAL IVP PRN (15:29)
[2022-03-28] MEDS ORDERED: Perflutren Lipid Microsphere 1.3 ML in 0.9 % Sodium Chloride 8.7 ML IVP PRN (15:33)
[2022-03-28] MEDS ORDERED: Ipratropium/Albuterol Neb 3 ML IH PRN (15:38)
[2022-03-28] MEDS: Heparin 25,000UNIT/250ML 1/2NS 25,000 UNIT/250 ML IV.SOLN IVC SCH (16:06)
[2022-03-28] MEDS: Ipratropium/Albuterol Neb 3 ML IH SCH ×2 (17:28→21:31)
[2022-03-28] MEDS: Insulin LISPRO 300 UNITS/3 ML VIAL SUBQ SCH (19:38)
[2022-03-28] MEDS: Doxycycline 100 MG in 0.9 % Sodium Chloride Mini Bag 100 ML IVPB SCH (20:08)
[2022-03-28] MEDS: Nystatin POWDER 30 GM BOTTLE TP SCH (23:38)
[2022-03-29 03:48] LABS: Basophils % 0.3 %; Eosinophils # 0.1 K/mcL (0.0-0.6); Eosinophils % 1.1 %; Hematocrit 35.8 % (35.3-44.9); Hemoglobin 11.1 g/dL (11.5-15.4); Immature Granulocytes % 0.6 % (0-4); Lymphocytes # 0.8 K/mcL (0.6-4.6); Lymphocytes % 6.7 %; Mean Corpuscular Hemoglobin 28.8 pg (28.0-33.3); Mean Corpuscular Volume 92.7 fL (83.0-100.0); Mean Platelet Volume 10.7 fL (9.4-12.4); Monocytes # 0.8 K/mcL (0.0-1.3); Monocytes % 7.1 %; Neutrophils # 9.7 K/mcL (1.6-8.9); Platelet Count 214 K/mcL (140-400); Red Blood Count 3.86 M/mcL (3.82-4.97); Red Cell Distribution Width 14.1 % (11.5-14.5); Segmented Neutrophils % 84.2 %; White Blood Count 11.5 K/mcL (4.3-11.1)
[2022-03-29] MEDS: Ipratropium/Albuterol Neb 3 ML IH SCH ×4 (04:10→22:39)
[2022-03-29 04:16] LABS: Magnesium 1.8 mg/dL (1.6-2.6); Phosphorous 3.9 mg/dL (2.7-4.5); Potassium 4.1 mEq/L (3.5-5.1); Troponin I 2.01 ng/mL (< 0.04)
[2022-03-29] MEDS: Doxycycline 100 MG in 0.9 % Sodium Chloride Mini Bag 100 ML IVPB SCH ×2 (04:58→23:09)
[2022-03-29] MEDS: Insulin LISPRO 300 UNITS/3 ML VIAL SUBQ SCH ×3 (07:48→23:08)
[2022-03-29] MEDS: cefTRIAXone 1,000 MG in Water for inj. (sterile) 10 ML IVP SCH (07:51)
[2022-03-29] MEDS: Nystatin POWDER 30 GM BOTTLE TP SCH ×2 (07:52→21:30)
[2022-03-29] MEDS: Furosemide 40 MG/4 ML VIAL IVP SCH (07:52)
[2022-03-29 14:01] LABS: Bacteria,Urine Few per hpf (None-Few); Bilirubin,Urine Negative (Negative); Blood,Urine Large (Negative); Clarity,Urine Turbid (Clear); Color,Urine Light-Yellow (Yellow); Glucose,Urine (UA) Normal (Normal); Hyaline Casts,Urine Few per lpf (None Seen); Ketones,Urine Negative (Negative); Leukocyte Esterase,Urine Small (Negative); Mucus,Urine Few per lpf (None-Few); Nitrite,Urine Negative (Negative); PH,Urine 5.5 pH Units (5.0-8.0); Protein,Urine Trace mg/dL (Neg-Trace); RBC,Urine TNTC per hpf (0-3); Specific Gravity,Urine 1.012 (1.010-1.025); Squamous Epithelial Cell,Urine Few per hpf (None-Few); Urobilinogen,Urine Normal (Normal); WBC,Urine 0-3 per hpf (0-3)
[2022-03-29] MEDS: Heparin 25,000UNIT/250ML 1/2NS 25,000 UNIT/250 ML IV.SOLN IVC SCH (14:10)
[2022-03-30 02:12] LABS: Basophils # 0.1 K/mcL (0.0-0.2); Basophils % 0.7 %; Eosinophils # 0.3 K/mcL (0.0-0.6); Eosinophils % 3.5 %; Hemoglobin 10.6 g/dL (11.5-15.4); Immature Granulocytes % 1.1 % (0-4); Lymphocytes # 0.7 K/mcL (0.6-4.6); Lymphocytes % 7.7 %; Mean Corpuscular HGB Conc 30.3 g/dL (31.6-35.5); Mean Corpuscular Hemoglobin 28.3 pg (28.0-33.3); Mean Corpuscular Volume 93.3 fL (83.0-100.0); Mean Platelet Volume 10.4 fL (9.4-12.4); Monocytes # 0.7 K/mcL (0.0-1.3); Monocytes % 7.8 %; Neutrophils # 7.1 K/mcL (1.6-8.9); Platelet Count 225 K/mcL (140-400); Red Blood Count 3.75 M/mcL (3.82-4.97); Red Cell Distribution Width 13.9 % (11.5-14.5); Segmented Neutrophils % 79.2 %
[2022-03-30] MEDS: Ipratropium/Albuterol Neb 3 ML IH SCH ×4 (03:40→22:39)
[2022-03-30] MEDS: Doxycycline 100 MG in 0.9 % Sodium Chloride Mini Bag 100 ML IVPB SCH ×2 (05:25→18:11)
[2022-03-30] MEDS: Furosemide 40 MG/4 ML VIAL IVP SCH (07:32)
[2022-03-30] MEDS: cefTRIAXone 1,000 MG in Water for inj. (sterile) 10 ML IVP SCH (07:33)
[2022-03-30] MEDS: Nystatin POWDER 30 GM BOTTLE TP SCH ×2 (07:34→21:33)
[2022-03-30] MEDS: Insulin LISPRO 300 UNITS/3 ML VIAL SUBQ SCH ×3 (07:44→18:11)
[2022-03-30] MEDS ORDERED: Metoprolol XL (24 HR) Succ 25 MG TAB.ER.24H PO SCH (09:00)
[2022-03-30] MEDS: Furosemide 40 MG/4 ML VIAL IV SCH (18:11)
[2022-03-30] MEDS: Ondansetron 4 MG/2 ML VIAL IVP PRN (18:21)
[2022-03-31 03:30] LABS: Basophils # 0.1 K/mcL (0.0-0.2); Basophils % 0.5 %; Eosinophils # 0.3 K/mcL (0.0-0.6); Eosinophils % 3.1 %; Hematocrit 35.6 % (35.3-44.9); Immature Granulocytes % 1.4 % (0-4); Lymphocytes # 0.6 K/mcL (0.6-4.6); Lymphocytes % 5.8 %; Mean Corpuscular HGB Conc 30.9 g/dL (31.6-35.5); Mean Corpuscular Hemoglobin 28.4 pg (28.0-33.3); Mean Platelet Volume 10.3 fL (9.4-12.4); Monocytes # 0.7 K/mcL (0.0-1.3); Monocytes % 7.5 %; Neutrophils # 8.1 K/mcL (1.6-8.9); Platelet Count 248 K/mcL (140-400); Red Blood Count 3.87 M/mcL (3.82-4.97); Red Cell Distribution Width 13.9 % (11.5-14.5); Segmented Neutrophils % 81.7 %; White Blood Count 9.9 K/mcL (4.3-11.1)
[2022-03-31 03:38] LABS: Heparin anti-factor XA UFH 0.46 IU/mL (0.30-0.70)
[2022-03-31 03:46] LABS: Albumin 3.6 g/dL (3.5-5.7); Albumin/Globulin Ratio 1.1 (1.1-2.2); Bilirubin,Total 0.5 mg/dL (0.3-1.0); Calcium 9.6 mg/dL (8.6-10.3); Globulin 3.2 g/dL (2.4-3.5); Potassium 3.9 mEq/L (3.5-5.1); Total Protein 6.8 g/dL (6.4-8.9)
[2022-03-31] MEDS: Ipratropium/Albuterol Neb 3 ML IH SCH ×4 (04:20→22:13)
[2022-03-31 05:17] LABS: Activated Partial Thrombo Time 33.2 Seconds (26.0-36.0)
[2022-03-31] MEDS: Heparin 25,000UNIT/250ML 1/2NS 25,000 UNIT/250 ML IV.SOLN IVC SCH (06:18)
[2022-03-31] MEDS: *HR* Heparin 5,000 UNIT/ML VIAL IVP PRN ×2 (06:47→16:09)
[2022-03-31] MEDS: Doxycycline 100 MG in 0.9 % Sodium Chloride Mini Bag 100 ML IVPB SCH ×2 (06:48→17:28)
[2022-03-31] MEDS ORDERED: Metoprolol XL (24 HR) Succ 50 MG TAB.ER.24H PO SCH (09:00)
[2022-03-31] MEDS: cefTRIAXone 1,000 MG in Water for inj. (sterile) 10 ML IVP SCH (09:35)
[2022-03-31] MEDS: Furosemide 40 MG/4 ML VIAL IV SCH (09:36)
[2022-03-31] MEDS: Insulin LISPRO 300 UNITS/3 ML VIAL SUBQ SCH ×3 (09:36→17:32)
[2022-03-31] MEDS: Nystatin POWDER 30 GM BOTTLE TP SCH (10:05)
[2022-04-01] MEDS: Nystatin POWDER 30 GM BOTTLE TP SCH ×2 (01:09→10:24)
[2022-04-01] MEDS: Ipratropium/Albuterol Neb 3 ML IH SCH ×4 (03:47→21:00)
[2022-04-01] MEDS: Doxycycline 100 MG in 0.9 % Sodium Chloride Mini Bag 100 ML IVPB SCH ×2 (05:12→18:06)
[2022-04-01 05:34] LABS: Basophils # 0.1 K/mcL (0.0-0.2); Basophils % 0.9 %; Eosinophils # 0.5 K/mcL (0.0-0.6); Eosinophils % 4.4 %; Hematocrit 36.5 % (35.3-44.9); Hemoglobin 11.1 g/dL (11.5-15.4); Immature Granulocytes % 2.8 % (0-4); Lymphocytes # 0.9 K/mcL (0.6-4.6); Lymphocytes % 8.9 %; Mean Corpuscular HGB Conc 30.4 g/dL (31.6-35.5); Mean Corpuscular Hemoglobin 28.2 pg (28.0-33.3); Mean Corpuscular Volume 92.9 fL (83.0-100.0); Monocytes # 0.8 K/mcL (0.0-1.3); Monocytes % 7.6 %; Neutrophils # 7.8 K/mcL (1.6-8.9); Platelet Count 260 K/mcL (140-400); Red Blood Count 3.93 M/mcL (3.82-4.97); Segmented Neutrophils % 75.4 %; White Blood Count 10.3 K/mcL (4.3-11.1)
[2022-04-01 05:54] LABS: Albumin 3.6 g/dL (3.5-5.7); Albumin/Globulin Ratio 1.2 (1.1-2.2); Bilirubin,Total 0.5 mg/dL (0.3-1.0); Calcium 9.3 mg/dL (8.6-10.3); Globulin 2.9 g/dL (2.4-3.5); Total Protein 6.5 g/dL (6.4-8.9)
[2022-04-01] MEDS: Metoprolol XL (24 HR) Succ 50 MG TAB.ER.24H PO SCH (10:23)
[2022-04-01] MEDS: cefTRIAXone 1,000 MG in Water for inj. (sterile) 10 ML IVP SCH (10:23)
[2022-04-01] MEDS: Furosemide 40 MG/4 ML VIAL IV SCH (10:24)
[2022-04-01] MEDS: Insulin LISPRO 300 UNITS/3 ML VIAL SUBQ SCH ×3 (10:26→18:15)
[2022-04-01] MEDS ORDERED: Chloraseptic Spray 177 ML BOTTLE MM PRN (10:45)
[2022-04-02] MEDS: Heparin 25,000UNIT/250ML 1/2NS 25,000 UNIT/250 ML IV.SOLN IVC SCH ×3 (01:25→22:50)
[2022-04-02] MEDS: Nystatin POWDER 30 GM BOTTLE TP SCH ×3 (01:25→20:46)
[2022-04-02 03:12] LABS: Basophils # 0.1 K/mcL (0.0-0.2); Basophils % 1.4 %; Eosinophils # 0.4 K/mcL (0.0-0.6); Eosinophils % 4.1 %; Hematocrit 37.8 % (35.3-44.9); Hemoglobin 11.6 g/dL (11.5-15.4); Immature Granulocytes % 4.5 % (0-4); Lymphocytes % 9.3 %; Mean Corpuscular HGB Conc 30.7 g/dL (31.6-35.5); Mean Corpuscular Hemoglobin 28.4 pg (28.0-33.3); Mean Corpuscular Volume 92.4 fL (83.0-100.0); Mean Platelet Volume 10.2 fL (9.4-12.4); Monocytes # 0.7 K/mcL (0.0-1.3); Monocytes % 6.8 %; Neutrophils # 7.5 K/mcL (1.6-8.9); Platelet Count 268 K/mcL (140-400); Red Blood Count 4.09 M/mcL (3.82-4.97); Red Cell Distribution Width 13.9 % (11.5-14.5); Segmented Neutrophils % 73.9 %; White Blood Count 10.2 K/mcL (4.3-11.1)
[2022-04-02] MEDS: Ipratropium/Albuterol Neb 3 ML IH SCH ×4 (03:57→22:24)
[2022-04-02 04:02] LABS: Albumin 3.6 g/dL (3.5-5.7); Albumin/Globulin Ratio 1.3 (1.1-2.2); Bilirubin,Total 0.4 mg/dL (0.3-1.0); Calcium 9.5 mg/dL (8.6-10.3); Globulin 2.8 g/dL (2.4-3.5); Potassium 4.1 mEq/L (3.5-5.1); Total Protein 6.4 g/dL (6.4-8.9)
[2022-04-02] MEDS: Doxycycline 100 MG in 0.9 % Sodium Chloride Mini Bag 100 ML IVPB SCH ×2 (05:29→17:20)
[2022-04-02] MEDS: Insulin LISPRO 300 UNITS/3 ML VIAL SUBQ SCH ×3 (09:15→17:26)
[2022-04-02] MEDS: Furosemide 40 MG/4 ML VIAL IV SCH (09:17)
[2022-04-02] MEDS: Metoprolol XL (24 HR) Succ 50 MG TAB.ER.24H PO SCH (09:20)
[2022-04-02] MEDS: cefTRIAXone 1,000 MG in Water for inj. (sterile) 10 ML IVP SCH (09:24)
[2022-04-02] MEDS: polyethylene glycoL 3350 17 GM POWD.PACK PO SCH (11:01)
[2022-04-02] MEDS: Ondansetron 4 MG/2 ML VIAL IVP PRN (11:05)
[2022-04-03] MEDS: Ipratropium/Albuterol Neb 3 ML IH SCH ×4 (04:22→22:34)
[2022-04-03] MEDS: Doxycycline 100 MG in 0.9 % Sodium Chloride Mini Bag 100 ML IVPB SCH ×2 (05:25→17:24)
[2022-04-03] MEDS: Insulin LISPRO 300 UNITS/3 ML VIAL SUBQ SCH ×3 (08:33→17:10)
[2022-04-03] MEDS: cefTRIAXone 1,000 MG in Water for inj. (sterile) 10 ML IVP SCH (08:34)
[2022-04-03] MEDS: Metoprolol XL (24 HR) Succ 50 MG TAB.ER.24H PO SCH (08:34)
[2022-04-03] MEDS ORDERED: 0.9 % Sodium Chloride 500 ML IVC SCH (09:00)
[2022-04-03] MEDS: Nystatin POWDER 30 GM BOTTLE TP SCH ×2 (09:20→21:01)
[2022-04-03 09:35] LABS: Hematocrit 39.1 % (35.3-44.9); Hemoglobin 11.9 g/dL (11.5-15.4); Mean Corpuscular HGB Conc 30.4 g/dL (31.6-35.5); Mean Corpuscular Hemoglobin 28.3 pg (28.0-33.3); Mean Corpuscular Volume 92.9 fL (83.0-100.0); Mean Platelet Volume 10.5 fL (9.4-12.4); Platelet Count 296 K/mcL (140-400); Red Blood Count 4.21 M/mcL (3.82-4.97); Red Cell Distribution Width 13.8 % (11.5-14.5); White Blood Count 10.2 K/mcL (4.3-11.1)
[2022-04-03 10:16] LABS: Albumin 3.7 g/dL (3.5-5.7); Albumin/Globulin Ratio 1.1 (1.1-2.2); Bilirubin,Total 0.4 mg/dL (0.3-1.0); Globulin 3.3 g/dL (2.4-3.5); Potassium 4.4 mEq/L (3.5-5.1)
[2022-04-03] MEDS: polyethylene glycoL 3350 17 GM POWD.PACK PO SCH (11:19)
[2022-04-03] MEDS: Furosemide 40 MG/4 ML VIAL IV SCH (11:19)
[2022-04-03 12:12] LABS: Eosinophils # 0.2 K/mcL (0.0-0.6); Lymphocytes # 1.6 K/mcL (0.6-4.6); Monocytes # 0.3 K/mcL (0.0-1.3); Neutrophils # 7.6 K/mcL (1.6-8.9)
[2022-04-03 12:13] LABS: Platelet Estimate Normal (Normal); Reactive Lymphocytes Present (Not Present)
[2022-04-03] MEDS ORDERED: Heparin 1,000 UNITS/500 mL 500 ML ONE (17:27)
[2022-04-03] MEDS ORDERED: 0.9 % Sodium Chloride 2,000 ML ONE (17:27)
[2022-04-03] MEDS ORDERED: Iopamidol - 370 200 ML INFUS..BTL ONE (17:27)
[2022-04-03] MEDS ORDERED: Nitroglycerin 1,000 MCG/5 ML VIAL IV ONE (17:27)
[2022-04-03] MEDS ORDERED: *HR* Heparin 10,000 UNIT/10 ML VIAL ONE (17:27)
[2022-04-03] MEDS ORDERED: *HR* FentaNYL (PF) 100 MCG/2 ML VIAL ONE (18:03)
[2022-04-03] MEDS ORDERED: *HR* Midazolam HCl 2 MG/2 ML VIAL ONE (18:03)
[2022-04-04] MEDS: Ipratropium/Albuterol Neb 3 ML IH SCH ×4 (03:40→22:33)
[2022-04-04] MEDS: Heparin 25,000UNIT/250ML 1/2NS 25,000 UNIT/250 ML IV.SOLN IVC SCH (07:27)
[2022-04-04] MEDS: Metoprolol XL (24 HR) Succ 50 MG TAB.ER.24H PO SCH (08:07)
[2022-04-04] MEDS: Furosemide 40 MG/4 ML VIAL IV SCH (08:07)
[2022-04-04] MEDS: Nystatin POWDER 30 GM BOTTLE TP SCH ×2 (08:07→20:05)
[2022-04-04] MEDS: polyethylene glycoL 3350 17 GM POWD.PACK PO SCH (08:07)
[2022-04-04] MEDS: Insulin LISPRO 300 UNITS/3 ML VIAL SUBQ SCH ×3 (08:08→16:43)
[2022-04-04] MEDS ORDERED: Apixaban 5 MG TABLET PO SCH (09:00)
[2022-04-04 09:48] LABS: Basophils # 0.1 K/mcL (0.0-0.2); Eosinophils # 0.4 K/mcL (0.0-0.6); Eosinophils % 3.7 %; Hemoglobin 11.7 g/dL (11.5-15.4); Immature Granulocytes % 4.9 % (0-4); Lymphocytes # 0.9 K/mcL (0.6-4.6); Lymphocytes % 8.2 %; Mean Corpuscular Hemoglobin 28.1 pg (28.0-33.3); Mean Corpuscular Volume 93.8 fL (83.0-100.0); Monocytes # 0.7 K/mcL (0.0-1.3); Monocytes % 6.1 %; Neutrophils # 8.2 K/mcL (1.6-8.9); Platelet Count 337 K/mcL (140-400); Red Blood Count 4.16 M/mcL (3.82-4.97); Segmented Neutrophils % 76.1 %; White Blood Count 10.7 K/mcL (4.3-11.1)
[2022-04-04 10:09] LABS: Albumin 3.6 g/dL (3.5-5.7); Albumin/Globulin Ratio 1.1 (1.1-2.2); Bilirubin,Total 0.4 mg/dL (0.3-1.0); Calcium 9.8 mg/dL (8.6-10.3); Globulin 3.4 g/dL (2.4-3.5)
[2022-04-04] MEDS ORDERED: Furosemide 20 MG TABLET PO SCH (11:00)
[2022-04-04] MEDS ORDERED: Cholecalciferol (D-3) 1,000 UNIT (25MCG) TABLET PO SCH (11:00)
[2022-04-04] MEDS ORDERED: Zinc Gluconate [Zinc] 50 MG Tablet PO SCH (11:00)
[2022-04-04] MEDS ORDERED: Sennosides/Docusate Sodium TABLET PO SCH (11:30)
[2022-04-04] MEDS ORDERED: Iopamidol - 370 500 ML MLS PO ONE (17:00)
[2022-04-04 18:45] VITALS: TEMP 98.2
[2022-04-04] MEDS ORDERED: Apixaban 2.5 MG TABLET PO SCH (21:00)
[2022-04-04] MEDS ORDERED: Insulin DETEMIR 100 UNIT/ML X5UNITS SUBQ SCH (21:00)
[2022-04-04 22:55] VITALS: BP 119/44; PULSE 71; O2SAT 99
[2022-04-05] MEDS ORDERED: Furosemide 20 MG TABLET PO SCH (09:00)
== END 2022-04-05 02:05 | disposition short-term general hospital (02) | DRG 871 ==
LOC: EMEROOARM 11:06 → 2NENU 11:06 → SUATTDRO 17:16 → 2NENU 18:30 → SUATTDRO 03-30 18:05
PROVIDERS: ADMIT General Practice; ATTEND Internal Medicine